=== PATIENT | female | born 1950 | race African-American/Black ===

== ENCOUNTER → 2022-12-18 | Outpatient (CLI) | payer MEDICARE, MEDICAID, SELFPAY ==
--- NOTE | 2022-12-18 15:14 | NEURO ---
NCS and/or EMG Patient Report Ordering Doctor: Petey Lujan DATE OF SERVICE: 12/18/22 Findings: Nerve conduction studies were performed in the left upper extremity with some comparisons on the right. The left median motor study recording the abductor pollicis brevis showed a normal amplitude, normal distal latency and borderline conduction velocity. The left ulnar motor study recording the abductor digiti minimi showed a borderline amplitude, normal distal latency and borderline conduction velocity. No conduction block or focal slowing was present across the elbow. The left median sensory response recording digit two was absent. The left ulnar sensory response recording digit five was absent. The left radial sensory response recording over the extensor snuff box was absent. The right radial sensory response recording over the extensor snuff box showed a normal amplitude, latency and conduction velocity. The radial responses were markedly asymmetric. Needle EMG of the left upper extremity muscles was performed. Active denervation was seen in the distal muscles of the left upper extremity. Motor units in the abductor pollicis brevis and first dorsal interosseous were large amplitude and long duration with reduced recruitment. All other motor unit morphology, activation and recruitment patterns were normal. Impression: This is an abnormal study. 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 Clinical correlation is recommended. Bernardo Love D.O. Multi Select Codes Neurology Neurology Interp Codes: 72457-48 Musc test done w/n test comp (interp) and 81277-59 Nr cndj tst 5-6 studies (interp)
== END | disposition home or self-care (01) ==
LOC: PSN 13:59
PROVIDERS: PCP Internal Medicine Nephrology; Referring Provider Surgery; Visit Provider Surgery
DX: G56.02 Carpal tunnel syndrome, left upper limb (principal)
CPT/HCPCS: 95886; 95909

== ENCOUNTER 2023-02-07 07:41 | Outpatient (CLI) | payer MEDICARE, MEDICAID, SELFPAY ==
[2023-02-06 09:07] VITALS: BMI 29.8
--- NOTE | 2023-02-07 07:44 | VDUE_ITS ---
Reason For Study: Pre op by BPG Right Lower Arm Left Arm Proximal Radial artery diameter 1.3 x 1.3 Lt Brachial A at AC - 0.34 x 0.32cm mm. Lt Brachial V at AC - 0.40 x 0.37cm Proximal Radial artery waveform is Lt Brachial A at Bicep - 0.35 x 0.37cm triphasic . Lt Brachial V at Bicep - 0.29 x 0.39cm Proximal Lateral Radial vein diameter 0.6 x Lt Brachial A prox - 0.39 x 0.38cm 0.8 mm. Lt Brachial V prox - 0.33 x 0.34cm Proximal Medial Radial vein diameter 1.0 x Used larger of 2 vein duplicators for 1.1 mm. measurements. Distal Radial artery diameter 1.2 x 1.2 mm. Lt Brachial A - 68.2/0.0cm/s. Distal Lateral Radial vein diameter 0.5 x Unable to visualize Lt Cephalic Vein. 0.7 mm. Distal Medial Radial vein diameter 0.6 x 0.6 Loop Graft mm. Lt Inflow - 68.3/17.9 cm/sec Proximal Ulnar artery diameter 3.3 x 3.4 mm. Lt Inflow - 68.2 ml/min Proximal Ulnar artery waveform is Prox Anastomosis - 240.1/135.1 cm/s triphasic . Prox Anastomosis - 1940.0 ml/min Right Arm Prox Graft - 80.6/46.8 cm/s Right Brachial artery diameter 4.0 x 3.6 mm. Prox Graft - 610.5 ml/min Right Brachial artery waveform is Mid Graft - 100.7/49.6 cm/s triphasic . Mid Graft - 725.2 ml/min Lateral Brachial vein diameter 1.3 x 1.7 mm. Dist Graft - 197.3/111.8 cm/s Medial Brachial vein diameter 2.2 x 2.4 mm. Dist Graft - 1212.0 ml/min Ambulance Officer Vein is present. Dist Anastomosis - 332.8/72.7 cm/s Ambulance Officer Vein measures 2.3 mm. Dist Anastomosis - 1388 ml/min Cephalic Vein at proximal upper arm measures Loop Graft 1.7 x 1.5 mm. Outflow appears to be patent Basilic V. Cephalic vein at proximal upper arm depth Left Lower Arm measures 17 mm. Proximal Radial artery diameter 1.3 x 1.5 mm. Cephalic Vein at mid upper arm measures 1.6 Lt Radial A - 79.1/0.0cm/s. x 1.3 mm. Proximal Lateral Radial vein diameter 1.5 x Cephalic vein at mid upper arm depth 1.4cm and 1.3 x 1.9cm mm. measures 11 mm. Proximal Ulnar artery diameter 0.10 x 0.11 Cephalic Vein distal upper arm measures 1.4 mm. x 1.4 mm. Lt Ulnar A - 57.6/14.6cm/s. Cephalic vein at distal upper arm depth Proximal Lateral Ulnar vein diameter 1.2 x measures 6.8 mm. 1.1cm and 1.0 x 1.1cm mm. Cephalic Vein proximal forearm measures 0.9 x 0.8 mm. Cephalic Vein at mid forearm measures 1.1 x 1.3 mm. Cephalic Vein at distal forearm measures 0.8 x 0.9 mm. Proximal Basilic vein measures 7.2 x 6.7 mm. Proximal Basilic vein depth measures 23 mm. Mid Basilic vein measures 3.9 x 3.6 mm. Mid Basilic vein depth measures 21 mm. Distal Basilic vein measures 2.6 x 2.8 mm. Distal Basilic vein depth measures 13 mm. VL/Saphenous Vein Mapping, Bilat Interpretation Summary Patent left upper arm AV graft with elevated velocities and turbulent flow at d istal anastomosis Bilateral arterial inflow patent with normal waveforms and no evidence of steno sis Bilateral venous outflow patent. Vein measurements above Ordering Physician: Papito Martinez Referring Physician: Chris Ford Performed By: Jak Giraldo, T ???
--- NOTE | 2023-02-07 07:44 | ART_ITS ---
Reason For Study: Problem w/ dialysis access Procedure A unilateral upper extremity continuous wave Doppler with analog waveform analysis.. Lt Digit waveforms captured with PPG with and without compressions at fistula site. VL/AV Fistula/Dialysis Graft Scan Interpretation Summary Left upper extremity digit waveforms mildly diminished at baseline with no impr ovement with fistula compression. Ordering Physician: Papito Martinez Referring Physician: Chris Ford Performed By: Jak Giraldo RVT
[2023-02-07 08:18] LABS: Absolute Neutrophil Count 5.1 X10^3/uL (2.0-7.7); Basophil# 0.06 X10^3/uL; Basophil% 0.8 % (0-1); Eosinophil# 0.11 X10^3/uL; Eosinophils% 1.4 % (0-5); Hematocrit 36.2 % (37-47); Hemoglobin 11.6 g/dL (12.0-15.0); Lymphocyte % 22.2 % (19-41); Mean Corpuscular Hgb 31.1 pg (27.0-32.0); Mean Corpuscular Volume 97.1 fL (81-99); Mean Platelet Vol. 11.1 fl (6.2-12.0); Monocyte# 0.64 X10^3/uL; Monocyte% 8.4 % (0-10); NRBC Flagged by Analyzer 0 % (0-5); Neutrophil # 5.11 X10^3/uL (2.7-7.7); Neutrophil % 66.8 % (47-70); Platelet Count 175 K/mm3 (150-450); RBC Distribution Width CV 15.7 % (11.6-14.6); RBC Distribution Width SD 55.5 fl (35.1-43.9); Red Blood Count 3.73 M/mm3 (4.2-5.4); White Blood Count 7.7 K/mm3 (4.4-11.0)
[2023-02-07 08:37] LABS: Anion Gap 8 (5-15); BUN 51 mg/dL (7-18); BUN/Creat Ratio 6.8 RATIO (10-20); Calcium,Total 9.1 mg/dL (8.5-10.1); Chloride 110 mmol/L (98-107); Creatinine, Serum 7.54 mg/dL (0.55-1.02); EST Glomerular Filtration Rate 6 mL/min (>60); Est Glom Filt Rate - Afr Amer 7 mL/min (>60); Estimated Creatinine Clearance 6.41 ml/min; Glucose 163 mg/dL (74-106); Potassium 4.6 mmol/L (3.5-5.1); Sodium Level 141 mmol/L (136-145)
--- NOTE | 2023-02-07 13:08 | PCM.OPRPT ---
Report of Operation Date of Procedure: 02/07/23 Pre-Operative Diagnosis: left arm arterial steal Post-Operative Diagnosis: same Surgery/Procedure Performed:: thoracic aortogram left upper extremity selective angiogram Surgeon: Papito Martinez Type of Anesthesia: Local and Sedation,Conscious Estimated Blood Loss (mL): 3 Description of Procedure: HPI: Patient is a 72-year female with a previous left upper extremity AV graft who has had worsening left hand paresthesias since the graft was placed. She presents for angiogram to assess and treat arterial inflow compromise as a cause for her ischemia prior to any potential fistula revisions. Description of procedure: Upon obtaining informed consent and verification correct patient procedure site patient taken to the [facility] where she was positioned prepped and draped in usual fashion. Time was performed conscious sedation ministered with Versed and fentanyl. Skin overlying the right common femoral artery is anesthetized 1% lidocaine and the vessel accessed under ultrasound guidance with micropuncture needle wire. This was exchanged for micropuncture sheath through which hand-injection iliofemoral angiogram was performed revealing satisfactory position with no extravasation or dissection. Through the micropuncture sheath a J-wire was advanced and the micropuncture sheath exchanged out for short 6 Icelandic sheath. Through the 6 Icelandic sheath a pigtail catheter was advanced into the ascending aorta and an arch aortogram performed. This revealed the origin of the vessels of the arch and demonstrated a type III arch. The patient was then heparinized and allowed to circulate for 3 minutes after which a H1 catheter was advanced over the wire and the J-wire exchanged for a glide advantage wire. We were able to initially cannulate the left subclavian artery but were unable to obtain sufficient enough purchase to advance her catheter. We then exchanged the H1 catheter for a MP2 catheter which was again used to cannulate the left subclavian and advanced our glide advantage wire. Given the angulation of the arch and acute angle of the apex of the subclavian were unable to advance beyond the a sending portion of the subclavian artery however we felt it from this position adequate imaging to be obtained. Next hand-injection subtraction angiography of the left upper extremity was performed with and without compression of the fistula. After adequate imaging was obtained the catheter was withdrawn and a minx closure device deployed in the femoral access followed by 2 minutes of manual pressure with satisfactory stasis resulting. Radiograph interpretation: Ascending and arch aorta normal in caliber with no significant atherosclerosis or stenosis. Type III arch with ostia of innominate and left carotid from common origin and no significant stenosis. Left subclavian origin and remainder vessel widely patent with no significant atherosclerosis or stenosis. Left axillary and proximal brachial arteries patent with no significant atherosclerosis or stenosis. Left distal brachial artery with anastomosis of prior AV graft patent with no stenosis or atherosclerosis. Large caliber anastomosis with brisk contrast transit into the graft with minimal contrast visualized beyond the anastomosis in the arterial outflow to the hand. With graft compression there was improved visualization of the distal brachial artery as well as the radial ulnar arteries.
== END 2023-02-07 16:00 | disposition home or self-care (01) ==
PROVIDERS: PCP Internal Medicine Nephrology; Referring Provider Surgery Trauma Surgery; Visit Provider Surgery Trauma Surgery
DX: T82.898A Other specified complication of vascular prosthetic devices, implants and grafts, initial encounter (principal); T82.848A Pain due to vascular prosthetic devices, implants and grafts, initial encounter; Z99.2 Dependence on renal dialysis; E11.22 Type 2 diabetes mellitus with diabetic chronic kidney disease; N18.6 End stage renal disease; I12.0 Hypertensive chronic kidney disease with stage 5 chronic kidney disease or end stage renal disease; Z79.4 Long term (current) use of insulin; Z79.82 Long term (current) use of aspirin; Z79.899 Other long term (current) drug therapy; Z79.85 Long-term (current) use of injectable non-insulin antidiabetic drugs
CPT/HCPCS: 36200; 36415; 75605; 75710; 76937; 80048; 85025; 86850; 86900; 86901; 93970; 93990; 99152; 99153; C1769; J7040; Q9967

== ENCOUNTER → 2023-02-21 | Outpatient (CLI) | payer MEDICARE, MEDICAID, SELFPAY ==
--- NOTE | 2023-02-21 13:51 | VDLE_ITS ---
Reason For Study: Pre-Op vein mapping RIGHT LEFT GSV prox thigh - 0.12 x 0.12cm GSV prox thigh - 0.20 x 0.20cm GSV mid thigh - 0.12 x 0.13cm GSV mid thigh - 0.27 x 0.25cm GSV dist thigh - 0.20 x 0.21cm GSV dist thigh - 0.28 x 0.27cm GSV Knee - 0.09 x 0.12cm GSV Knee - 0.20 x 0.19cm GSV prox calf - 0.16 x 0.15cm GSV prox calf - 0.13 x 0.11cm GSV mid calf - 0.10 x 0.13cm GSV mid calf - 0.10 x 0.13cm GSV dist calf - 0.11 x 0.13cm GSV dist calf - 0.10 x 0.10cm ASV prox thigh - 0.28 x 0.27cm SSV prox calf - 0.09 x 0.09cm ASV mid thigh - 0.23 x 0.25cm SSV mid calf - 0.12 x 0.13cm ASV dist thigh - 0.20 x 0.24cm SSV dist calf - 0.09 x 0.08cm ASV Knee - 0.18 x 0.23cm ASV prox calf - 0.22 x 0.24cm GSV and SSV are compressible. ASV mid calf - 0.17 x 0.17cm ASV dist calf - 0.17 x 0.18cm SSV prox calf - 0.13 x 0.14cm SSV mid calf - 0.12 x 0.12cm SSV dist calf - 0.13 x 0.15cm GSV, SSV and ASV all compressible. Procedure This is a venous duplex using B-mode, color flow and spectral Doppler. Exam performed in department. The exam was diagnostic. VL/Saphenous Vein Mapping, Bilat Interpretation Summary Right great saphenous vein, small saphenous vein and accessory saphenous vein p atent with measurements above. Left great saphenous vein, small saphenous vein patent with measurements above. Ordering Physician: Papito Martinez Referring Physician: Papito Martinez Performed By: Jak Giraldo RVT
== END | disposition home or self-care (01) ==
LOC: CVS 13:46
PROVIDERS: PCP Internal Medicine Nephrology; Referring Provider Surgery Trauma Surgery; Visit Provider Surgery Trauma Surgery
DX: Z01.818 Encounter for other preprocedural examination (principal)
CPT/HCPCS: 93970

== ENCOUNTER 2023-03-26 09:14 | Inpatient (IN) | payer MEDICARE, MEDICAID, SELFPAY ==
[2023-03-26] VITALS (15 sets, daily range): BP systolic 112–233; BP diastolic 44–77; PULSE 43–67; RESP 10–18; TEMP 35.4–36.6; O2SAT 94–100; BMI 29.7; BMI 29.0
[2023-03-26 10:43] LABS: Bedside Glucose 140 mg/dL (74-106)
[2023-03-26] MEDS: 0.9% Normal Saline (500mL Bag) 500 ML 15 ML IV (10:44)
--- NOTE | 2023-03-26 13:36 | HP.PCM_ITS ---
[facility] - General General Date of Admission: 03/26/23 [facility] Narrative ALISON HILLIARD, is a 72 F who presents with left hand pain/paresthesias after upper arm AV graft. left upper extremity arteriogram revealed satisfactory inflow vessels with no stenosis; minimal contrast transits beyond graft anastomosis which is generous in size. There is also a venous anastomosis stenosis. She presents for revascularization with distal inflow, angioplasty/stent of venous outflow [facility] Medical History (Updated 03/19/23 @ 13:50 by Katie Cam) Alcohol use Anemia Arthritis Chronic renal failure Diabetes Gout History of echocardiogram History of renal dialysis History of stress test Hypertension Insulin dependent diabetes mellitus Non-smoker Post-menopausal Problem with dialysis access Shortness of breath on exertion Steal syndrome dialysis vascular access Wears glasses Home Medications allopurinol 100 mg tablet 150 mg PO DAILY GOUT 10/25/22 [History Last Taken 03/25/23] amlodipine 10 mg tablet 10 mg PO QHS BP 10/25/22 [History Last Taken 03/25/23] aspirin 81 mg tablet,delayed release 81 mg PO DAILY HEART HEALTH 10/25/22 [History Last Taken 03/25/23] atorvastatin 40 mg tablet 40 mg PO SUTH CHOLESTEROL 10/25/22 [History Last Taken 03/25/23] carvedilol 25 mg tablet 25 mg PO BID HEART 10/25/22 [History Last Taken 03/26/23] clonidine HCl 0.2 mg tablet 0.2 mg PO BID BP 10/25/22 [History Last Taken 03/26/23] dulaglutide 1.5 mg/0.5 mL subcutaneous pen injector (Trulicity) 1.5 mg subcut QWEEK DEPRESSION 10/25/22 [History Last Taken Unknown] ergocalciferol (vitamin D2) 1,250 mcg (50,000 unit) capsule (Vitamin D2) 1,250 mcg PO QMONTH SUPPLEMENT 10/25/22 [History Last Taken 03/25/23] furosemide 80 mg tablet 80 mg PO DAILY WATER PILL 10/25/22 [History Last Taken 03/25/23] insulin degludec 200 unit/mL (3 mL) subcutaneous pen (Tresiba FlexTouch U-200 insulin) 10 unit subcut QHS DIABETES 10/25/22 [History Last Taken 03/25/23] multivit,Ca,zcz-atzh-OO-guarana-caff 9 mg iron-400 mcg-200 mg tablet (One-A-[employer]) 1 tab PO DAILY SUPPLEMENT 10/25/22 [History Last Taken 03/25/23] clonidine HCl 0.2 mg tablet 0.5 mg PO DAILY PRN hypertensive emergency 01/10/23 [History Last Taken Unknown] sacubitril 49 mg-valsartan 51 mg tablet (Entresto) 1 tab PO BID BP 03/19/23 [History Last Taken 03/26/23] Allergy/AdvReac Type Severity Reaction Status Date / Time No Known Allergies Allergy Verified 03/26/23 10:16 Family History (Updated 01/10/23 @ 14:03 by Rita Rider) Aunt CVA (cerebral vascular accident) Sister Asthma Daughter Thyroid disorder CVA (cerebral vascular accident) Daughter Diabetes Hypertension Kidney disease High cholesterol Surgical History (Updated 03/19/23 @ 13:50 by Katie Cam) History of arteriovenostomy for renal dialysis History of hysterectomy History of infusaport central venous catheter insertion History of partial nephrectomy Hx of excision of mass Social History Smoking Status: Never smoker alcohol intake: current alcohol intake frequency: a few times a month substance use type: does not use ROS Constitutional Constitutional: Denies chills, fever(s), frequent falls, lethargy or weakness Eyes Eyes: Denies blind spots, change in vision or loss of vision ENT HEENT: Denies bleeding gums, hoarseness or sore throat Cardiovascular Cardiovascular: Denies abdominal pain, bluish discoloration of hand/feet, chest pain with activity, claudication, cold extremities, cyanosis, dyspnea on exertion, erythema on extremities, irregular heart rhythm, leg edema, leg ulcers, numbness in extremities or weakness in extremities Respiratory/Chest Respiratory/Chest: Denies cough, excessive phlegm production, shortness of breath at rest, shortness of breath with exertion or wheezing Gastrointestinal Gastrointestinal: Denies anorexia, change in stool character, constipation, diarrhea, melena or rectal bleeding Genitourinary Genitourinary: Denies dysuria or hematuria Musculoskeletal Musculoskeletal: Denies abnormal gait Integumentary Integumentary: Reports other Details: ; Denies erythema, non-healing lesions or wounds Neurologic Neurologic: Denies abnormal speech, focal weakness, headache(s), loss of vision, numbness, paresthesias or sensory deficit Hematologic/Lymphatic Hematologic/Lymphatic: Denies easy bleeding, easy bruising or lymphadenopathy Vital Signs Vital Signs Vital Signs: 03/26/23 10:17 03/26/23 10:17 Temperature 97.2 F L Temperature Source Temporal Pulse Rate 67 Respiratory Rate 17 Respiratory Pattern Normal Blood Pressure 178/67 H Blood Pressure Mean 104 Blood Pressure Source Monitor Blood Pressure Position Semi-Fowlers Blood Pressure Location Right Arm Pulse Ox 99 Oxygen Delivery Method Room Air Weight Weight: 183 lb 13.848 oz Body Mass Index (BMI) 29.7 Physical Exam Const alert, oriented x3, no apparent distress and healthy appearing General Appearance: cooperative; Negative for combative or lethargic Orientation / Consciousness: awake Exam Limitations: no limitations HEENT Head and Scalp: normocephalic and atraumatic Eyes EOMs intact bilaterally General Eye: normal appearance of both eyes Neck full ROM, no lymphadenopathy, thyroid normal and No no carotid bruits General: trachea midline; Negative for lymphadenopathy or tenderness Thyroid: thyroid normal Lymph Lymphatic: Negative for no lymphadenopathy noted Resp normal respiratory effort, no use of accessory muscles and clear to auscultation bilaterally Effort and Inspection: Negative for labored, stridor or audible wheezes Cardio regular rate, regular rhythm and no murmurs Peripheral Pulses: brachial pulses present, radial pulses present, femoral pulses present, popliteal pulses present, posterior tibial pulses present and dorsalis pedis pulses present GI non-tender and non-distended; Negative for hepatosplenomegaly Back/Spine Cervical Spine: cervical ROM normal Extremity full ROM, normal capillary refill and no clubbing, cyanosis or edema Skin no rashes or lesions noted and no wounds Neuro oriented x3, CN's II-XII intact bilaterally, no focal motor deficits and no sensory deficits noted Psych thought process normal, cooperative, affect normal, speech normal and activity/motor behavior normal Results Lab / Micro Data Labs: Laboratory Results - last 24 hr 03/26/23 10:23: POC Glucose 140 H 03/26/23 10:37: Blood Type A POSITIVE, Antibody Screen NEGATIVE Assessment & Plan Assessment/Plan (1) Steal syndrome dialysis vascular access: QUALIFIERS: Encounter type: initial encounter Qualified Code(s): T82.898A - Other specified complication of vascular prosthetic devices, implants and grafts, initial encounter PLAN: -revascularization with distal inflow -angioplasty/stent venous outflow
[2023-03-26] MEDS: Cefazolin 2 GM in 0.9% Normal Saline (100mL Bag) 100 ML IV (13:52)
--- NOTE | 2023-03-26 14:32 | RAD_ITS ---
PROCEDURE: ANGIOGRAM - fistulogram REASON FOR EXAM: Female, 72 years old. FISTULOGRAM FLUOROSCOPY TIME (if supplied): (5 minutes and 48 seconds) minutes/seconds. 21.63 mGy STERILE BARRIER TECHNIQUE: The following sterile barrier precautions were used during the procedure: hand hygiene; use of 2% chlorhexidine aseptic; use of a cap, mask, sterile gown, sterile gloves, sterile full body drape, and a large sterile sheet. TECHNIQUE: (All elements of maximal sterile barrier technique followed, including US elements as applicable) Intraoperative fluoroscopic services provided for angioplasty and stent placement of the fistula. RAD/Fluoroscopy 1 Hr or Less IMPRESSION: Satisfactory angioplasty and stent placement of the stenosis at the level of the fistula. Electronically Signed: Jimmie Wiley MD at 8:15 EST ,
[2023-03-26] MEDS: Bupivacaine 0.25% 30 ML Vial (14:50)
[2023-03-26] MEDS: Heparin Injection (Vial) 5,000 UNIT/ML VIAL 5000 UNIT ×2 (17:15→18:23)
--- NOTE | 2023-03-26 18:34 | OP.PCM_ITS ---
Report of Operation Date of Procedure: 03/26/23 Pre-Operative Diagnosis: left upper extremity arteriovenous steal, stenosis of venous anastomosis of prior AV graft Post-Operative Diagnosis: same Surgery/Procedure Performed:: revascularization using distal inflow, angioplasty/stent venous anastomosis, IVUS Surgeon: Papito Martinez Estimated Blood Loss (mL): 50 Description of Procedure: HPI: Patient is a 72-year-old female with a previously placed left upper arm AV graft with symptoms consistent with steal. She had previous angiogram which revealed adequate arterial inflow but selective contrast emptying into the graft rather than towards the hand. She also was noted to have a anastomosis at the venous end with significant stenosis. She is taken now for revascularization using distal inflow from the radial artery as well as angioplasty and stent to the venous outflow. Description of procedure: Upon obtaining form consent and verification correct patient procedure site the patient was taken to the operating room she was placed under general anesthesia. She was then positioned prepped and draped in usual fashion and timeout was performed. Ultrasound was used to alexx the left great saphenous vein which was adequate in size. Skip incisions were then created and Bovie used to dissect down through subcutaneous tissue to the vein was visualized. Sharp dissection then used to dissect free the saphenous vein with sidebranches ligated with silk ties and divided. Once an adequate length of vein was exposed we then turned our attention to the upper extremity. Transverse incision was made 2 fingerbreadths distal to the antecubital crease and Bovie electrocautery was used to dissect down through subcutaneous tissue to the level of the fascia. Self-retaining retractors then put in position and the fascia was incised exposing the neurovascular bundle. Sharp dissection used to dissect free the distal brachial artery and its bifurcation into the radial ulnar arteries. Next a longitudinal incision made over the graft in the distal aspect of the upper arm and both electrocautery to dissect down through subcutaneous tissue. Self-retaining retractors put in position further dissection carried down to the graft was dissected free proximal distal and a right angle used to place a vessel loop. We then used a Deforest tunneler to tunnel from the graft to the forearm incision and the patient was then heparinized. At this point micropuncture needle wire was used to access the graft in antegrade fashion which is a minor exchanged out for micropuncture sheath. Through this hand-injection fistulogram was performed which confirmed the location of the anastomosis and stenosis. Bentson wire was advanced and the micropuncture sheath exchanged out for a short 7 Swedish sheath. Through this a glide catheter was advanced in the Bentson wire exchanged for an 014 wire. An 014 intravascular ultrasound probe was then advanced in the position and recorded pullback of the brachial vein and the graft anastomosis was performed confirming vessel size and extent of stenosis. The lesion was predilated with first a 6 mm conquest balloon followed by 7 mm conquest balloon each taken to nominal. There is satisfactory response from the lesion so a 7 - 11 x 60 Bard Covera stent was advanced in position and deployed. This was then postdilated with a 7 mm balloon with repeat angiography revealing satisfactory resolution of the stenosis with brisk contrast transit. The sheath was then withdrawn and the graft clamped. At this point the saphenous vein harvest was completed with the distal vessel ligated with silk ties and the saphenofemoral junction and oversewn with Prolene. The vein was then flushed heparinized saline and all sidebranches were adequately ligated. This was then oriented in reverse fashion and the radial artery occluded with Vesseloops. Longitudinal arteriotomy was created with 11 blade extended Fermin scissors. The vein was then anastomosed with 6-0 Prolene running fashion after which the vessels were flushed through the graft and confederated salish flow return to the hand. The vein was then marked to maintain orientation and secured with a tunneler and pulled through to the upper arm incision. The graft puncture site was then extended with Fermin scissors and the vein cut the length and beveled to match the arteriotomy. Anastomosis was then performed with a 6-0 Prolene in a running fashion. Prior to completing suture line vessels and graft were back flushed and after completing suture line clamps were removed. Satisfactory stasis was noted and there was a low resistant Doppler signal in the vein as well as the synthetic graft. There is also now palpable radial pulse in the wrist which was not present preoperatively. After removing the clamp on the proximal portion of the graft it was then ligated with an 0 silk tie. Wounds were then inspected for hemostasis and closed with 3-0 Vicryl, 4-0 Monocryl, Dermabond. Patient was then awake from anesthetic taken recovery room with anticipated admission to the progressive care unit. Grafts/Implants Used: Bard Covera 7-11 x 60
[2023-03-26 19:36] LABS: Bedside Glucose 119 mg/dL (74-106)
[2023-03-26] MEDS: oxyCODONE 5 MG Tablet PO (22:26)
[2023-03-26] MEDS: cloNIDine HCl 0.2 MG Tablet PO (22:58)
[2023-03-26] MEDS: Carvedilol 25 MG Tablet PO (22:59)
[2023-03-26] MEDS: Heparin Injection (Vial) 5,000 UNIT/ML VIAL 5000 UNIT SC (23:00)
[2023-03-26] MEDS: SACUBITRIL/VALSARTAN 49-51 MG TABLET 1 EACH PO (23:01)
[2023-03-26] MEDS: amLODIPine 10 MG Tablet PO (23:02)
[2023-03-26] MEDS: Acetaminophen 500 MG Tablet 1000 MG PO (23:02)
[2023-03-26 23:37] LABS: Bedside Glucose 239 mg/dL (74-106)
[2023-03-27] VITALS (19 sets, daily range): BP systolic 91–139; BP diastolic 33–93; PULSE 38–57; RESP 10–19; TEMP 35.5–36.8; O2SAT 91–100
[2023-03-27] MEDS: HYDROmorphone 0.5 MG/0.5 ML SYRINGE 0.2 MG IV ×2 (00:18→04:44)
[2023-03-27] MEDS: 0.9% Saline Lock 10 ML Syringe IV ×2 (00:23→04:45)
[2023-03-27] MEDS: Acetaminophen 500 MG Tablet 1000 MG PO ×2 (06:55→13:28)
[2023-03-27 07:00] LABS: Absolute Lymphocyte Count 1.81 X10^3/uL (0.83-4.51); Absolute Neutrophil Count 4.7 X10^3/uL (2.0-7.7); Basophil# 0.05 X10^3/uL; Basophil% 0.7 % (0-1); Eosinophil# 0.04 X10^3/uL; Eosinophils% 0.5 % (0-5); Hematocrit 32.7 % (37-47); Hemoglobin 9.3 g/dL (12.0-15.0); Lymphocyte # 1.81 X10^3/ul (0.83-4.51); Lymphocyte % 23.9 % (19-41); Mean Corp Hgb Conc 28.4 g/dL (32-36); Mean Corpuscular Hgb 30.6 pg (27.0-32.0); Mean Corpuscular Volume 107.6 fL (81-99); Mean Platelet Vol. 11.1 fl (6.2-12.0); Monocyte# 0.89 X10^3/uL; Monocyte% 11.8 % (0-10); NRBC Flagged by Analyzer 0.3 % (0-5); Neutrophil # 4.74 X10^3/uL (2.7-7.7); Neutrophil % 62.6 % (47-70); POSITIVE MORPHOLOGY YES; Platelet Count 244 K/mm3 (150-450); RBC Distribution Width CV 17.6 % (11.6-14.6); RBC Distribution Width SD 67.6 fl (35.1-43.9); Red Blood Count 3.04 M/mm3 (4.2-5.4); White Blood Count 7.6 K/mm3 (4.4-11.0)
[2023-03-27 07:12] LABS: Differential Indicated SCAN CRITERIA MET
[2023-03-27 07:17] LABS: Anisocytosis 1+; Differential Comment SCANNED; Macrocytosis 1+
[2023-03-27 07:35] LABS: Bedside Glucose 155 mg/dL (74-106)
[2023-03-27 07:36] LABS: Anion Gap 9 (5-15); BUN 45 mg/dL (7-18); BUN/Creat Ratio 6.5 RATIO (10-20); Calcium,Total 8.4 mg/dL (8.5-10.1); Chloride 107 mmol/L (98-107); Creatinine, Serum 6.91 mg/dL (0.55-1.02); EST Glomerular Filtration Rate 6 mL/min (>60); Est Glom Filt Rate - Afr Amer 8 mL/min (>60); Estimated Creatinine Clearance 6.99 ml/min; Glucose 170 mg/dL (74-106); Potassium 5.6 mmol/L (3.5-5.1); Sodium Level 137 mmol/L (136-145)
[2023-03-27] MEDS: Aspirin E.C. 81 MG Tablet PO (07:54)
[2023-03-27] MEDS: Allopurinol 300 MG Tablet 150 MG PO (07:54)
[2023-03-27] MEDS: oxyCODONE 5 MG Tablet PO (11:06)
[2023-03-27] MEDS: BENZOCAINE/MENTHOL 1 LOZENGE MUCOUS MEM (11:16)
[2023-03-27 12:01] LABS: Bedside Glucose 138 mg/dL (74-106)
[2023-03-27] MEDS: Furosemide 80 MG Tablet PO (12:09)
[2023-03-27] MEDS: cloNIDine HCl 0.2 MG Tablet PO (12:09)
[2023-03-27] MEDS: Heparin Injection (Vial) 5,000 UNIT/ML VIAL 5000 UNIT SC (12:10)
--- NOTE | 2023-03-27 15:10 | CASEMGMT ---
RN?CM?CALCULATING MACHINE MECHANIC?CM?to room to meet with patient for initial transition planning/care coordination?assessment.?RN?CM?introduced self and role at [facility].? Pt voices understanding and consents to?assessment?at this time.? Pt sitting up in chair in room in no distress at this time.? Pt is A/O at this time and answers all questions appropriately.?? Care providers, pharmacy, and demographics verified/updated at this time. PCP: Dr Gretchen Rose in [place] Specialists: Dr Chris Ford-special projects manager, Dr Martinez-vascular surgeon Dialysis: Pt goes to [facility] in [place] on [address] on Mon and Wed for OP HD. Chair time is @ 0720. Preferred Pharmacy: [facility] @ discharge Insurance: [facility] Dual Prescription Benefit:?Yes Living Will/HPOA:?Pt does not currently have LW/HCPOA and declines info at this time.? Pt made aware that she can contact as an out-pt and make appt in the future if she decides she would like to talk with someone about this or would like to utilize [facility] social work for advanced directive completion.? LNOK: 2 daughters: Leon and Radha Living Arrangements: Lives alone in one-story home w/basement and 1 step to enter through the front door. Pt states, though, that she usually goes up a flight of steps from the basement to get into the home, but for now will most likely use the front door until she recovers. She states she is independent w/ADL's, IADL's, and manages her own medications. Transportation:?Pt states drives self and states no transportation concerns at this time.?Her daughter will take her home @ discharge. DME: ?States has the following DME:?functioning glucometer w/supplies ?Pt states no need for further DME at this time.? HHC/SNF: No hx of either. Pt denies need for HHC and no needs identified. Pt wishes to return home and states has no concerns with going home at time of discharge.? CM?to follow for any discharge planning/needs.? Pt voices no concerns/needs at this time.? Advised pt to ask for?CM?if any questions/concerns/needs arise.? Voices understanding. PLAN:??Home Eliseo VELEZN?RN?CM
--- NOTE | 2023-03-27 15:27 | PCM.DC.SUM ---
Providers Date of Admission: 03/26/23 Primary Care Physician: Dr. Chris Ford MD Reason For Visit: left upper extremity revascularization using dista Diagnosis Discharge Diagnosis (1) Steal syndrome dialysis vascular access: Status: Chronic Code(s): T82.898A - Other specified complication of vascular prosthetic devices, implants and grafts, initial encounter Qualifiers: Encounter type: initial encounter Qualified Code(s): T82.898A - Other specified complication of vascular prosthetic devices, implants and grafts, initial encounter Medications at Discharge Home Medications allopurinol 100 mg tablet 150 mg PO DAILY GOUT 10/25/22 amlodipine 10 mg tablet 10 mg PO QHS BP 10/25/22 aspirin 81 mg tablet,delayed release 81 mg PO DAILY HEART HEALTH 10/25/22 atorvastatin 40 mg tablet 40 mg PO SUTH CHOLESTEROL 10/25/22 carvedilol 25 mg tablet 25 mg PO BID HEART 10/25/22 clonidine HCl 0.2 mg tablet 0.2 mg PO BID BP 10/25/22 dulaglutide 1.5 mg/0.5 mL subcutaneous pen injector (Trulicity) 1.5 mg subcut QWEEK DEPRESSION 10/25/22 ergocalciferol (vitamin D2) 1,250 mcg (50,000 unit) capsule (Vitamin D2) 1,250 mcg PO QMONTH SUPPLEMENT 10/25/22 furosemide 80 mg tablet 80 mg PO DAILY WATER PILL 10/25/22 insulin degludec 200 unit/mL (3 mL) subcutaneous pen (Tresiba FlexTouch U-200 insulin) 10 unit subcut QHS DIABETES 10/25/22 multivit,Ca,dzt-lrhi-XI-guarana-caff 9 mg iron-400 mcg-200 mg tablet (One-A-Day Energy) 1 tab PO DAILY SUPPLEMENT 10/25/22 clonidine HCl 0.2 mg tablet 0.5 mg PO DAILY PRN hypertensive emergency 01/10/23 sacubitril 49 mg-valsartan 51 mg tablet (Entresto) 1 tab PO BID BP 03/19/23 oxycodone 5 mg tablet 5 mg PO Q8H PRN PRN Pain Score 4-10 3 days #9 tabs 03/27/23 Hospital Course Summary of Care Provided Hospital Course: Patient underwent revascularization using distal inflow, angioplasty/stent venous anastomosis of left fracture of any AV graft. This procedure was performed due to steal syndrome with associated ischemic amyotrophy of the LUE. Patient was routinely admitted the following this procedure for continued monitoring. She has remained hemodynamically stable although her blood pressures are lower than her usual baseline. She reports feeling well overall, was drowsy this morning but feels back to her baseline this afternoon. She did okay with ambulating and getting up to the chair with no dizziness or syncope/presyncope. She does think that her hand already feels some better since surgery yesterday, she feels like its not cramping as much. Following surgery, she does have some antecubital bruising and moderate associated swelling, but this area is stable in size and soft to palpation and should resolve with time. She has incision sites along the left medial thigh where vein was harvested. These incision sites were closed with skin glue and are currently covered with silver postoperative dressings. These postoperative dressings will be left in place for 1 week after which time they can be removed and the incisions will no longer need to remain covered. She also has 2 small incisions and the left upper arm which are covered by surgical glue, these do not otherwise need to be covered. Following surgery, patient does have a bruit in the left upper extremity AV graft. No risk of surgery was improvement to the hand symptoms but failure of the graft so will need to continue to monitor for this. She is scheduled for outpatient dialysis on Saturday, and they may proceed with dialysis as usual using their typical locations to access the graft. Given her lower blood pressures following surgery yesterday, we will continue her home clonidine but hold her other antihypertensive medications. She understands that she is to check her blood pressure is 1-2 times daily at home. When her systolic blood pressure is greater than 140 she may restart her other blood pressure medications. Se understands to call the office with any questions or concerns regarding her blood pressure with these medications. She is discharged in medically stable condition. She will follow-up in the office in 2 to 4 weeks for follow-up or sooner as needed. Physical Exam Const oriented x3 and no apparent distress Resp normal respiratory effort, no retractions and no use of accessory muscles Effort and Inspection: able to speak in complete sentences; Negative for respiratory distress, labored, stridor or audible wheezes Cardio regular rhythm Rate: bradycardia Extremity Extremity Narrative: She has surgical incisions along the medial aspect of her left thigh, these are currently covered by silver postoperative dressings. There is no significant erythema, warmth, drainage noted. There is expected tenderness in this area. The remainder of the LLE and her RLE are without any significant swelling. L upper extremity AV graft with +bruit. 2 small incision sites are covered by surgical glue, no focal swelling, redness, warmth, excessive tenderness, drainage. There is ecchymosis in the antecubital space without associated focal swelling. There is more diffuse swelling throughout the surgical site which is expected, it is all soft to palpation and the swelling has remained stable throughout the day. Weight / BMI Weight Weight: 179 lb 14.355 oz Body Mass Index (BMI) 29.0 ABG / Lab / Microbiology Data 03/27/23 06:45 03/27/23 06:45 Laboratory: Laboratory Results - last 24 hr 03/26/23 19:17: POC Glucose 119 H 03/26/23 23:12: POC Glucose 239 H 03/27/23 06:45: WBC 7.6, RBC 3.04 L, Hgb 9.3 L, Hct 32.7 L, MCV 107.6 H, MCH 30.6, MCHC 28.4 L, RDW Std Deviation 67.6 H, RDW Coeff of Geovany 17.6 H, Plt Count 244, MPV 11.1, Immature Gran % (Auto) 0.500, Neut % (Auto) 62.6, Lymph % (Auto) 23.9, Metcalfe % (Auto) 11.8 H, Eos % (Auto) 0.5, Baso % (Auto) 0.7, Absolute Neuts (auto) 4.7, Absolute Lymphs (auto) 1.81, Nucleated RBC % 0.3, Differential Comment SCANNED, Anisocytosis 1+, Macrocytosis 1+, Sodium 137, Potassium 5.6 H, Chloride 107, Carbon Dioxide 21.0, Anion Gap 9, BUN 45 H, Creatinine 6.91 H, Estim Creat Clear Calc 6.99, Est GFR (MDRD) Af Amer 8 L, Est GFR (MDRD) Non-Af 6 L, BUN/Creatinine Ratio 6.5 L, Glucose 170 H, Calcium 8.4 L 03/27/23 06:59: POC Glucose 155 H 03/27/23 11:00: POC Glucose 138 H Radiography Diagnostic Testing: Radiology Impression Fluoroscopy 03/26/23 14:32 IMPRESSION: Satisfactory angioplasty and stent placement of the stenosis at the level of the fistula. Electronically Signed: Jimmie Wiley MD at 8:15 EST , D/C Instructions Discharge Diet: No restrictions Weight Bearing Status: Weight bearing as tolerated Lifting Restricted to (Lbs): 20 Lifting Restrictions: Do not lift greater than 20 pounds for 2-3 weeks Call your doctor if your incision/area has: Sudden Increased Bleeding, Increased Pain/ Swelling and Foul Smelling Discharge Call your doctor if you observe: Fever of 101 or Higher and Uncontrolled pain Additional Instructions: You have incisions along the inside of your left thigh. These are currently covered with adhesive dressings which are to remain in place for 1 week. Once these dressings are removed you do not need to keep these incision sites covered as they are protected by surgical glue. The 2 incision sites on your left arm are also covered with surgical glue. The glue will peel off on its own over the next couple of weeks. Please do not pick at it. Your blood pressures have been on the low side following surgery. This is most likely due to the anesthesia and I expect your blood pressures to return to their typical baseline over the next few days. Because your blood pressures are low we are going to make some temporary adjustments to your medications. For now, please continue to take your clonidine (catapress) 0.2 mg twice daily and your Entresto (sacubitril/valsartan) twice daily as prescribed. Please hold your carvedilol 25 mg twice daily and your amlodipine 10 mg daily and and your furosemide (Lasix) 80 mg daily. Please check your blood pressure at home 1-2 times a day for the next week. When your systolic blood pressure (top number) is greater than 140 then you may restart your other blood pressure medications. Please call the office if your blood pressures remain low or you have any other questions or concerns. You are cleared to have dialysis as scheduled on Saturday. They may continue to access your graft in the usual location. If they have any questions or concerns, they may reach out to our office. Do not lift greater 20 pounds for 2-3 weeks with your left arm. Otherwise, can continue with activity as tolerated. Your note for your first postoperative visit on 04/18/2023. If you need to change this appointment or have any other questions or concerns please call the office at [phone]. Please Follow Up With: Papito Martinez MD When: 04/18/2023 Meaningful Use Info Meaningful Use Diagnoses (Choose all that apply): None applicable Discharge Plan Admission Admit Date/Time: 03/26/23 09:14 Primary Reason for Your Visit: revascularization using distal inflow, angioplasty/stent venous anastomosis Attending Provider: Papito Martinez Primary Care Provider: Chris Ford Discharge Orders/Prescriptions Prescriptions: New oxycodone 5 mg Tablet 5 mg PO Q8H PRN PRN (Reason: Pain Score 4-10) 3 Days Qty: 9 0RF Continued aspirin 81 mg tablet,delayed release (DR/EC) 81 mg PO DAILY allopurinol 100 mg tablet 150 mg PO DAILY atorvastatin 40 mg tablet 40 mg PO SUTH clonidine HCl 0.2 mg tablet 0.2 mg PO BID ergocalciferol (vitamin D2) [Vitamin D2] 1,250 mcg (50,000 unit) capsule 1,250 mcg PO QMONTH Trulicity 1.5 mg/0.5 mL pen injector 1.5 mg subcut QWEEK One-A-Day Energy 9 mg iron-400 mcg-200 mg tablet 1 tab PO DAILY insulin degludec [Tresiba FlexTouch U-200] 200 unit/mL (3 mL) insulin pen 10 unit subcut QHS clonidine HCl 0.2 mg tablet 0.5 mg PO DAILY PRN (Reason: hypertensive emergency) Patient Comments: prn during dialysis Entresto 49-51 mg tablet 1 tab PO BID Held amlodipine 10 mg tablet 10 mg PO QHS Hold Instructions: Resume on 03/30/23. Hold until systolic blood pressure is greater than 140 carvedilol 25 mg tablet 25 mg PO BID Hold Instructions: Resume on 03/30/23. Hold until systolic blood pressure is greater than 140 Rx Instructions: must administer with a meal/food furosemide 80 mg tablet 80 mg PO DAILY Hold Instructions: Resume on 03/30/23. Hold until systolic blood pressure is greater than 140 Referrals / Follow Up: Chris Ford MD [Primary Care Provider] - Disposition Disposition (needs filled in before D/C Order can be placed): Home, Self Care
== END 2023-03-27 18:09 | disposition home or self-care (01) | DRG 252 ==
LOC: ACINP 09:15 → PCU 19:41
PROVIDERS: Admitting Provider Surgery Trauma Surgery; PCP Family Medicine; Referring Provider Surgery Trauma Surgery; Visit Provider Surgery Trauma Surgery
PROC: 057A3DZ Dilation of Left Brachial Vein with Intraluminal Device, Percutaneous Approach (ICD-10-PCS; principal; 2023-03-26 10:45)
DX: T82.898A Other specified complication of vascular prosthetic devices, implants and grafts, initial encounter (principal); N18.6 End stage renal disease; I12.0 Hypertensive chronic kidney disease with stage 5 chronic kidney disease or end stage renal disease; T82.858A Stenosis of other vascular prosthetic devices, implants and grafts, initial encounter; E11.22 Type 2 diabetes mellitus with diabetic chronic kidney disease; Z99.2 Dependence on renal dialysis; Z79.4 Long term (current) use of insulin; N18.9 Chronic kidney disease, unspecified; Z79.82 Long term (current) use of aspirin; Z79.899 Other long term (current) drug therapy
CPT/HCPCS: 36415; 76000; 80048; 82962; 85025; 86850; 86900; 86901; 94762; 99252; A4648; C1753; C1769; C1894; J7040; A4216; G0463; J2405

== ENCOUNTER 2023-11-26 07:11 | Day surgery (SDC) | payer MEDICARE, MEDICAID, SELFPAY ==
[2023-11-26] VITALS (9 sets, daily range): BP systolic 94–150; BP diastolic 54–70; PULSE 55–68; RESP 16–18; TEMP 36.2–36.8; O2SAT 98–100; BMI 29.8
[2023-11-26] MEDS: 0.9% Normal Saline (500mL Bag) 500 ML 15 ML IV (07:56)
[2023-11-26 08:05] LABS: Hematocrit 41.1 % (37-47); Hemoglobin 12.8 g/dL (12.0-15.0); Mean Corp Hgb Conc 31.1 g/dL (32-36); Mean Corpuscular Hgb 30.1 pg (27.0-32.0); Mean Corpuscular Volume 96.7 fL (81-99); Mean Platelet Vol. 10.6 fl (6.2-12.0); POSITIVE MORPHOLOGY YES; Platelet Count 248 K/mm3 (150-450); RBC Distribution Width CV 18.4 % (11.6-14.6); RBC Distribution Width SD 65.3 fl (35.1-43.9); Red Blood Count 4.25 M/mm3 (4.2-5.4); White Blood Count 7.5 K/mm3 (4.4-11.0)
[2023-11-26 08:14] LABS: Scan Indicated on CBC? Y/N YES- FLAGS NOTED
--- NOTE | 2023-11-26 08:16 | PRE.ANES_ITS ---
ASA Classification* ASA Classification ASA Classification: 3 Assessment & Plan Anesthesia* Anesthesia Assessment Anesthesia Assessment: Discussed sedation and/or anesthesia options, risks, benefits, and alternatives with patient/parents/legal guardian/POA. Questions invited. The patient/parents/legal guardian/POA seems to understand and agrees to proceed with anesthesia plan. Reviewed the physical assessment, medical history, allergy history and patient home medications list prior to surgery/procedure/anesthetic and documented any changes. Performed airway and anesthesia risk assessments. Anesthesia Type Anesthesia Type: MAC Anesthesia Focused Assessment* Temperature: 97.2 F Pulse Rate: 55 Blood Pressure: 150/65 Respiratory Rate: 16 Pulse Ox: 100 Airway Assessment Mouth opens: >3 cm Mallampati Score: II Focused Labs Anesthesia Preop lab: CBC WBC 7.5 K/mm3 (4.4-11.0) 11/26/23 07:55 RBC 4.25 M/mm3 (4.2-5.4) 11/26/23 07:55 Hgb 12.8 g/dL (12.0-15.0) 11/26/23 07:55 Hct 41.1 % (37-47) 11/26/23 07:55 Plt Count 248 K/mm3 (150-450) 11/26/23 07:55 CHEMISTRY Potassium 5.6 mmol/L (3.5-5.1) H 03/27/23 06:45 Sodium 137 mmol/L (136-145) 03/27/23 06:45 BUN 45 mg/dL (7-18) H 03/27/23 06:45 Creatinine 6.91 mg/dL (0.55-1.02) H 03/27/23 06:45 Glucose 170 mg/dL (74-106) H 03/27/23 06:45 POC Glucose 138 mg/dL (74-106) H 03/27/23 11:00 COAG Pre-Assessment Diagnosis/Proposed Procedure Planned Operative Procedure(s): RIGHT ARM ARTERIOVENOUS FISTULA CREATION Anesthesia History Anesthesia History - inspector publications: Anesthesia History - inspector publications Hx Hospitalization No 11/11/23 13:56 Any Problems With Anesthesia No 11/11/23 13:56 Cholinesterase deficiency No 11/11/23 13:56 You/Your Family Experience No 11/11/23 13:56 fever (hyperthermia) with Relationship Recent Exposure to Contagious No 11/26/23 07:50 Disease Does patient have nerve No 11/11/23 13:56 stimulator Patient instructed to have device shut off --Does patient have Pacemaker No 11/26/23 07:52 or ICD? When Was Last Pacemaker Check QUESTION #4 FULL TEXT: You/Your Family Experience fever (hyperthermia) with Anesthesia Last Oral Intake Last Oral intake: Last Oral Intake NPO since 19:00 11/26/23 07:52 Meds taken in AM with sips of Yes 11/26/23 07:52 water? Meds patient instructed to take am of surgery PONV PONV - inspector publications: PONV - inspector publications Female Yes 11/11/23 13:56 HX of Motion Sickness No 11/11/23 13:56 HX of N/V After Surgery No 11/11/23 13:56 Non-Smoker Yes 11/11/23 13:56 Duration of Surgery greater Yes 11/11/23 13:56 than 60 minutes Number of Risk Factors 3 11/11/23 13:56 PONV Score Moderate Risk 11/11/23 13:56 Height & Weight Height & Weight: Anesthesia: Height & Weight Height 5 ft 6 in 11/26/23 07:52 Weight: 83.915 kg 11/26/23 07:52 Body Mass Index (BMI) 29.8 11/26/23 07:52 Respiratory Assessment Respiratory Assessment - inspector publications: Respiratory Tract Infection Hx - inspector publications Hx Respiratory Tract Infection No 11/11/23 13:56 STOP Sleep Apnea STOP Sleep Apnea - inspector publications: STOP Sleep Apnea - inspector publications Hx Hypertension Yes: MOSTLY CONTROLLED WITH 11/11/23 13:56 MEDS Hx Sleep Apnea No 11/11/23 13:56 CPAP BIPAP Do you snore loudly (louder Yes 11/11/23 13:56 than talking or can be heard Do you often feel tired/ No 11/11/23 13:56 fatigued/ sleepy during daytime? Has anyone observed you stop No 11/11/23 13:56 breathing during sleep? STOP Results Positive 11/11/23 13:56 QUESTION #5 FULL TEXT : Do you snore loudly (louder than talking or can be h eard through closed doors)? Tobacco Use History Tobacco Use History - inspector publications: Tobacco Use History - inspector publications Tobacco Use Smoking Status Never smoker 11/11/23 13:56 Hx Tobacco Use No 11/11/23 13:56 Years Smoking Packs Smoked per Day Smoking Cessation Date was within the last 15 years Hx Smoking Cessation Date Hx Smoking Cessation Counseling Hematologic Medial History Hematologic Hx - inspector publications: Hematologic Medical Hx - hadoop analyst Hx of Blood Transfusion No 11/11/23 13:56 Hx of Transfusion in last 3 No 11/11/23 13:56 Months Date of Last Transfusion (if within last 3 months) Ever experience any problems No 11/11/23 13:56 with transfusion(s)? Specify any problems Hx of Preganancy in last 3 No 11/11/23 13:56 Months Nurse Filling Out Transfusion DSCHRIBER 11/11/23 13:56 & Questions: Date: 11/11/23 11/11/23 13:56 Time: 13:58 11/11/23 13:56 Patient unable to answer at this time (ie. confused, unrespo /Reproduction History /Reproductive History - inspector publications: /Reproductive Hx- inspector publications Hx Now Gestational Age (in weeks): EDC: Hx Hx Para Hx Section SAB No 11/11/23 13:56 Active Medications Active Medications: Current Medications Generic Name Dose Route Start Last Admin Trade Name Freq PRN Reason Stop Dose Admin Cefazolin Sodium 2 gm/ Sodium 110 mls @ 150 mls/hr 11/26/23 14:00 Chloride IV 11/26/23 14:43 PREOP ONE Sodium Chloride 500 mls @ 0 mls/hr 11/26/23 07:30 11/26/23 07:56 IV 15 mls/hr .Q0M FRANCESCO Administration KVO PFSH Medical History Wears glasses Post-menopausal Alcohol use Insulin dependent diabetes mellitus Arthritis Anemia Shortness of breath on exertion Non-smoker History of echocardiogram History of stress test History of renal dialysis Hypertension Gout Diabetes Problem with dialysis access Steal syndrome dialysis vascular access Chronic renal failure Home Medications ?Medication ?Instructions ?Recorded ?Last Taken ?Type allopurinol 100 mg tablet 150 mg PO DAILY GOUT 10/25/22 11/25/23 History amlodipine 10 mg tablet 10 mg PO QHS BP 10/25/22 11/25/23 History aspirin 81 mg tablet,delayed 81 mg PO DAILY HEART HEALTH 10/25/22 11/25/23 History release atorvastatin 40 mg tablet 40 mg PO SUTH CHOLESTEROL 10/25/22 11/24/23 History carvedilol 25 mg tablet 25 mg PO BID HEART 10/25/22 11/26/23 05:45 History dulaglutide 1.5 mg/0.5 mL 1.5 mg subcut WE DIABETES 10/25/22 11/20/23 History subcutaneous pen injector (Trulicity) ergocalciferol (vitamin D2) 1,250 1,250 mcg PO QMONTH SUPPLEMENT 10/25/22 11/11/23 History mcg (50,000 unit) capsule (Vitamin D2) furosemide 80 mg tablet 80 mg PO DAILY WATER PILL 10/25/22 11/25/23 History insulin degludec 200 unit/mL (3 10 unit subcut QHS PRN PRN DIABETES 10/25/22 03/25/23 History mL) subcutaneous pen (Tresiba FlexTouch U-200 insulin) multivit,Ca,rbb-epea-NQ-guarana-caff 1 tab PO DAILY SUPPLEMENT 10/25/22 11/25/23 History 9 mg iron-400 mcg-200 mg tablet (One-A-Day Energy) clonidine 0.3 mg/24 hr weekly 1 patch topical URBINA 11/11/23 11/24/23 History transdermal patch dorzolamide 22.3 mg-timolol 6.8 1 drp ophthalmic (eye) BID 11/11/23 11/25/23 History mg/mL eye drops hydralazine 100 mg tablet 100 mg PO BID 11/11/23 11/26/23 04:45 History sacubitril 97 mg-valsartan 103 mg 1 tab PO BID 11/11/23 11/26/23 04:45 History tablet (Entresto) Allergy/AdvReac Type Severity Reaction Status Date / Time No Known Allergies Allergy Verified 11/26/23 07:45 Family History Aunt CVA (cerebral vascular accident) Sister Asthma Daughter Thyroid disorder CVA (cerebral vascular accident) Daughter Diabetes Hypertension Kidney disease High cholesterol Surgical History Hx of excision of mass History of partial nephrectomy History of infusaport central venous catheter insertion History of arteriovenostomy for renal dialysis History of hysterectomy Social History Smoking Status: Never smoker alcohol intake: current alcohol intake frequency: a few times a month substance use type: does not use Review of Systems (Anesthesia) ROS Narrative System reviewed and no additional complaints, except as documented.
--- NOTE | 2023-11-26 08:35 | PCM.HP.STD ---
HPI - General HPI Narrative ALISON HILLIARD, is a 73 F who presents with ESRD, currently on HD via right IJ catheter. Vein mapping revealed adequate right upper arm basilic vein. Presents for stage I fistula [facility] Medical History Wears glasses Post-menopausal Alcohol use Insulin dependent diabetes mellitus Arthritis Anemia Shortness of breath on exertion Non-smoker History of echocardiogram History of stress test History of renal dialysis Hypertension Gout Diabetes Problem with dialysis access Steal syndrome dialysis vascular access Chronic renal failure Home Medications ?Medication ?Instructions ?Recorded ?Last Taken ?Type allopurinol 100 mg tablet 150 mg PO DAILY GOUT 10/25/22 11/25/23 History amlodipine 10 mg tablet 10 mg PO QHS BP 10/25/22 11/25/23 History aspirin 81 mg tablet,delayed 81 mg PO DAILY HEART HEALTH 10/25/22 11/25/23 History release atorvastatin 40 mg tablet 40 mg PO SUTH CHOLESTEROL 10/25/22 11/24/23 History carvedilol 25 mg tablet 25 mg PO BID HEART 10/25/22 11/26/23 05:45 History dulaglutide 1.5 mg/0.5 mL 1.5 mg subcut WE DIABETES 10/25/22 11/20/23 History subcutaneous pen injector (Trulicity) ergocalciferol (vitamin D2) 1,250 1,250 mcg PO QMONTH SUPPLEMENT 10/25/22 11/11/23 History mcg (50,000 unit) capsule (Vitamin D2) furosemide 80 mg tablet 80 mg PO DAILY WATER PILL 10/25/22 11/25/23 History insulin degludec 200 unit/mL (3 10 unit subcut QHS PRN PRN DIABETES 10/25/22 03/25/23 History mL) subcutaneous pen (Tresiba FlexTouch U-200 insulin) multivit,Ca,nke-dqxy-AO-guarana-caff 1 tab PO DAILY SUPPLEMENT 10/25/22 11/25/23 History 9 mg iron-400 mcg-200 mg tablet (One-A-Day Energy) clonidine 0.3 mg/24 hr weekly 1 patch topical URBINA 11/11/23 11/24/23 History transdermal patch dorzolamide 22.3 mg-timolol 6.8 1 drp ophthalmic (eye) BID 11/11/23 11/25/23 History mg/mL eye drops hydralazine 100 mg tablet 100 mg PO BID 11/11/23 11/26/23 04:45 History sacubitril 97 mg-valsartan 103 mg 1 tab PO BID 11/11/23 11/26/23 04:45 History tablet (Entresto) Allergy/AdvReac Type Severity Reaction Status Date / Time No Known Allergies Allergy Verified 11/26/23 07:45 Family History Aunt CVA (cerebral vascular accident) Sister Asthma Daughter Thyroid disorder CVA (cerebral vascular accident) Daughter Diabetes Hypertension Kidney disease High cholesterol Surgical History Hx of excision of mass History of partial nephrectomy History of infusaport central venous catheter insertion History of arteriovenostomy for renal dialysis History of hysterectomy Social History Smoking Status: Never smoker alcohol intake: current alcohol intake frequency: a few times a month substance use type: does not use ROS Constitutional Constitutional: Denies chills, fever(s), frequent falls, lethargy or weakness Eyes Eyes: Denies blind spots, change in vision or loss of vision ENT HEENT: Denies bleeding gums, hoarseness or sore throat Cardiovascular Cardiovascular: Denies abdominal pain, bluish discoloration of hand/feet, chest pain with activity, claudication, cold extremities, cyanosis, dyspnea on exertion, erythema on extremities, irregular heart rhythm, leg edema, leg ulcers, numbness in extremities or weakness in extremities Respiratory/Chest Respiratory/Chest: Denies cough, excessive phlegm production, shortness of breath at rest, shortness of breath with exertion or wheezing Gastrointestinal Gastrointestinal: Denies anorexia, change in stool character, constipation, diarrhea, melena or rectal bleeding Genitourinary Genitourinary: Denies dysuria or hematuria Musculoskeletal Musculoskeletal: Denies abnormal gait Integumentary Integumentary: Reports other Details: ; Denies erythema, non-healing lesions or wounds Neurologic Neurologic: Denies abnormal speech, focal weakness, headache(s), loss of vision, numbness, paresthesias or sensory deficit Hematologic/Lymphatic Hematologic/Lymphatic: Denies easy bleeding, easy bruising or lymphadenopathy Vital Signs Vital Signs Vital Signs: 11/26/23 07:50 11/26/23 07:52 11/26/23 08:17 Temperature 97.2 F L 97.2 F L Temperature Source Temporal Pulse Rate 55 L 55 L Respiratory Rate 16 16 Respiratory Pattern Normal Blood Pressure 150/65 H 150/65 H Blood Pressure Mean 93 Blood Pressure Source Monitor Blood Pressure Position Semi-Fowlers Blood Pressure Location Right Arm Pulse Ox 100 100 Oxygen Delivery Method Room Air Weight Weight: 185 lb Body Mass Index (BMI) 29.8 Physical Exam Const alert, oriented x3, no apparent distress and healthy appearing General Appearance: cooperative; Negative for combative or lethargic Orientation / Consciousness: awake Exam Limitations: no limitations HEENT Head and Scalp: normocephalic and atraumatic Eyes EOMs intact bilaterally General Eye: normal appearance of both eyes Neck full ROM, no lymphadenopathy, thyroid normal and No no carotid bruits General: trachea midline; Negative for lymphadenopathy or tenderness Thyroid: thyroid normal Lymph Lymphatic: Negative for no lymphadenopathy noted Resp normal respiratory effort, no use of accessory muscles and clear to auscultation bilaterally Effort and Inspection: Negative for labored, stridor or audible wheezes Cardio regular rate and regular rhythm Back/Spine Cervical Spine: cervical ROM normal Extremity full ROM, normal capillary refill and no clubbing, cyanosis or edema Skin no rashes or lesions noted and no wounds Neuro oriented x3, CN's II-XII intact bilaterally, no focal motor deficits and no sensory deficits noted Psych thought process normal, cooperative, affect normal, speech normal and activity/motor behavior normal Results Lab / Micro Data 11/26/23 07:55 11/26/23 07:55 Labs: Laboratory Results - last 24 hr 11/26/23 07:55: WBC 7.5, RBC 4.25, Hgb 12.8, Hct 41.1, MCV 96.7, MCH 30.1, MCHC 31.1 L, RDW Std Deviation 65.3 H, RDW Coeff of Geovany 18.4 H, Plt Count 248, MPV 10.6 Assessment & Plan Assessment/Plan (1) ESRD (end stage renal disease) on dialysis: PLAN: -right basilic AVF
[2023-11-26] MEDS: Cefazolin 2 GM in 0.9% Normal Saline (100mL Bag) 100 ML IV (08:40)
[2023-11-26 09:05] LABS: Bedside Glucose 146 mg/dL (74-106)
[2023-11-26] MEDS: Bupivacaine 0.25% 30 ML Vial (09:05)
[2023-11-26] MEDS: Lidocaine 1% (20 ml mdv) 20 ML Vial (09:05)
[2023-11-26 09:06] LABS: Anion Gap 11 (5-15); BUN 36 mg/dL (7-18); BUN/Creat Ratio 5.8 RATIO (10-20); Calcium,Total 9.6 mg/dL (8.5-10.1); Chloride 102 mmol/L (98-107); Creatinine, Serum 6.17 mg/dL (0.55-1.02); EST Glomerular Filtration Rate 7 mL/min (>60); Est Glom Filt Rate - Afr Amer 9 mL/min (>60); Glucose 144 mg/dL (74-106); Potassium 4.6 mmol/L (3.5-5.1); Sodium Level 137 mmol/L (136-145)
[2023-11-26] MEDS: Heparin Injection (Vial) 5,000 UNIT/ML VIAL 5000 UNIT ×2 (09:07→09:29)
--- NOTE | 2023-11-26 10:28 | OP.PCM_ITS ---
Problems Associated Problem List Diagnoses (1) ESRD (end stage renal disease) on dialysis: Report of Operation Date of Procedure: 11/26/23 Pre-Operative Diagnosis: ESRD Post-Operative Diagnosis: same Surgery/Procedure Performed:: right stage I brachio-basilic fistula creation Surgeon: Papito Martinez Type of Anesthesia: Local and MAC Estimated Blood Loss (mL): 5 Description of Procedure: HPI: Patient is a 73-year-old female with end-stage renal disease currently on dialysis. She previously had a left arm AV graft which resulted in significant steal was ultimately revised with a BARRETT procedure. Unfortunately there was insufficient inflow after the revision in order to maintain the graft and ultimately failed. She has since been using an IJ catheter with no significant issues. Her previous vein mapping revealed adequate right basilic vein. She is taken now for stage I basilic fistula creation. Description of procedure: Upon obtaining informed consent and verification correct patient procedure site patient taken to the operating where she was positioned prepped and draped in usual sterile fashion. Timeout was performed and moderate sedation ministered by anesthesia. Ultrasound was used to evaluate the basilic vein and the cubital branch which was in close proximity to the brachial artery just distal to the antecubital crease. Skin overlying this location was anesthetized 1% lidocaine and transverse incision was made 1 fingerbreadth inferior to the antecubital crease. Bovie electrocautery was then used to dissect down through subcutaneous tissue and self-retaining retractor put in position. Sharp dissection used to dissect to the cubital branch which was dissected free proximal and distal. Next Bovie was used to dissect down to the level the fascia which was excised in Mosque configuration and self- retaining tractor moved deeper in the wound. Sharp dissection used to dissect free the brachial artery proximal and distal neurotomy was placed vessel loop. Patient was then heparinized allowed circuit for 3 minutes during which time the distal branches of the cubital vein were ligated with silk ties and divided. The vein was then marked to maintain orientation and then dilated up to 3 mm and then flushed with heparinized saline. The brachial artery was occluded with Vesseloops and longitudinal arteriotomy was created with 11 blade extended with Fermin scissors. The vein was then beveled to match the arteriotomy and anastomosis performed using a 6-0 Prolene in a running fashion. Prior to clamp suture line vessels were backbled after completing suture line clamps removed and satisfactory stasis was noted. There is a palpable thrill in the fistula and a palpable radial pulse at the wrist remained. The incision was then inspected for hemostasis and the heparin was reversed with protamine. The incision was then closed with 3-0 Vicryl, 4 Monocryl and Dermabond for the skin. At the conclusion of the case the patient was taken the recovery room with anticipated discharge to home.
--- NOTE | 2023-11-26 10:29 | DCINST_ITS ---
Discharge Instructions Diet Discharge Diet: No restrictions Activity Lifting Restrictions: do not lift > 20 lbs for 2 weeks with right arm Additional Activity Instructions:: do not submerge incision for 2 weeks Dressing / Incision Call your doctor if your incision/area has: Sudden Increased Bleeding, Increased Pain/ Swelling, Increased Redness and Foul Smelling Discharge Call your doctor if you observe: Coldness, Increased Pain Remove Dressing in: 2 days Follow Up Care Test Results: Test results from this visit will be discussed in further detail at your follow- up appointment, if applicable. Discharge Plan Admission Attending Provider: Papito Martinez Primary Care Provider: Gretchen Rose Instructions Print Language: Upper Sorbian Discharge Orders/Prescriptions Prescriptions: New oxycodone 5 mg tablet 5 mg PO Q8H PRN (Reason: pain) 2 Days Qty: 6 0RF Continued aspirin 81 mg tablet,delayed release (DR/EC) 81 mg PO DAILY allopurinol 100 mg tablet 150 mg PO DAILY amlodipine 10 mg tablet 10 mg PO QHS atorvastatin 40 mg tablet 40 mg PO SUTH carvedilol 25 mg tablet 25 mg PO BID Rx Instructions: must administer with a meal/food ergocalciferol (vitamin D2) [Vitamin D2] 1,250 mcg (50,000 unit) capsule 1,250 mcg PO QMONTH furosemide 80 mg tablet 80 mg PO DAILY Trulicity 1.5 mg/0.5 mL pen injector 1.5 mg subcut WE One-A-Day Energy 9 mg iron-400 mcg-200 mg tablet 1 tab PO DAILY insulin degludec [Tresiba FlexTouch U-200] 200 unit/mL (3 mL) insulin pen 10 unit subcut QHS PRN PRN (Reason: DIABETES) Rx Instructions: IF BLOOD SUGAR OVER 200 THEN TAKES INJECTION clonidine 0.3 mg/24 hr patch weekly 1 patch topical URBINA hydralazine 100 mg tablet 100 mg PO BID dorzolamide-timolol 22.3-6.8 mg/mL drops 1 drp ophthalmic (eye) BID Entresto 97-103 mg tablet 1 tab PO BID Referrals / Follow Up: Gretchen Rose MD [Primary Care Provider] - Disposition Disposition (needs filled in before D/C Order can be placed): Home, Self Care
--- NOTE | 2023-11-26 10:39 | PCM.POST.ANE ---
Anesthesia: Postop Eval I Current Vital Signs Temperature: 98.2 F Pulse Rate: 68 Blood Pressure: 94/54 Respiratory Rate: 18 Pulse Ox: 100 Oxygen Delivery Method: Room Air Assessment Airway patent: Yes Spontaneous unlabored respirations: Yes Mental status: Awake and Calm nausea: No Vomiting: No Anesthesia Complication: No Fluid Hydration Crystalloid volume administer (ml): 100 Total IV fluid infused: 100 Progress Note Anesthesia document: Postop Eval 1 completed: Yes
--- NOTE | 2023-11-26 13:24 | POSTOPAN2_ITS ---
Anesthesia Postop Eval I Sum Postop Eval Completion status Anesthesia document: Postop Eval 1 completed: Yes Anesthesia Postop Eval I Summary Anesthesia Postop Eval I Summary: Anesthesia Postop Eval I: Assessment Summary Airway patent Yes 11/26/23 10:39 [email or web address] Spontaneous unlabored Yes 11/26/23 10:39 [email or web address] respirations Mental status Awake,Calm 11/26/23 10:39 [email or web address] nausea No 11/26/23 10:39 [email or web address] Vomiting No 11/26/23 10:39 TRAUMA DIRECTORAVIS Anesthesia Postop Eval I: Fluid Summary Crystalloid volume administer 100 11/26/23 10:39 [email or web address] (ml) Colloids volume administered ( ml) Blood Product volume administered (ml) Total IV fluid infused 100 11/26/23 10:39 [email or web address] Anesthesia Postop Eval I: Summary Notes Anesthesia Complication No 11/26/23 10:39 TRAUMA DIRECTORAVIS Anesthesia Complication Comment: Post-operative progress note Anesthesia: Postop Eval II Evaluation Mental status: Awake and Calm Pain Level: 1 nausea: No Vomiting: No Complications Anesthesia Complication: No
--- NOTE | 2023-11-26 13:24 | PCM.POSTANE2 ---
Anesthesia Postop Eval I Sum Postop Eval Completion status Anesthesia document: Postop Eval 1 completed: Yes Anesthesia Postop Eval I Summary Anesthesia Postop Eval I Summary: Anesthesia Postop Eval I: Assessment Summary Airway patent Yes 11/26/23 10:39 [email or web address] Spontaneous unlabored Yes 11/26/23 10:39 [email or web address] respirations Mental status Awake,Calm 11/26/23 10:39 [email or web address] nausea No 11/26/23 10:39 [email or web address] Vomiting No 11/26/23 10:39 CEILING CLEANERAVIS Anesthesia Postop Eval I: Fluid Summary Crystalloid volume administer 100 11/26/23 10:39 [email or web address] (ml) Colloids volume administered ( ml) Blood Product volume administered (ml) Total IV fluid infused 100 11/26/23 10:39 CEILING [email or web address] Anesthesia Postop Eval I: Summary Notes Anesthesia Complication No 11/26/23 10:39 CEILING CLEANERAVIS Anesthesia Complication Comment: Post-operative progress note Anesthesia: Postop Eval II Evaluation Mental status: Awake and Calm Pain Level: 1 nausea: No Vomiting: No Complications Anesthesia Complication: No
== END 2023-11-26 11:41 | disposition home or self-care (01) ==
LOC: SDC 07:13 → AC 07:37
PROVIDERS: PCP Family Medicine; Referring Provider Surgery Trauma Surgery; Visit Provider Surgery Trauma Surgery
PROC: (CPT 36821; principal; 2023-11-26 08:15)
DX: Z45.2 Encounter for adjustment and management of vascular access device (principal); I12.0 Hypertensive chronic kidney disease with stage 5 chronic kidney disease or end stage renal disease; N18.6 End stage renal disease; Z79.4 Long term (current) use of insulin; E11.22 Type 2 diabetes mellitus with diabetic chronic kidney disease; Z99.2 Dependence on renal dialysis; Z79.82 Long term (current) use of aspirin; Z79.899 Other long term (current) drug therapy
CPT/HCPCS: 36821; 01844; 80048; 82962; 85027; A4648; J7040; J2405

== ENCOUNTER 2024-02-04 07:54 | Day surgery (SDC) | payer MEDICARE, MEDICAID, SELFPAY ==
[2024-02-04] VITALS (8 sets, daily range): BP systolic 108–156; BP diastolic 59–93; PULSE 54–61; RESP 16–17; TEMP 36.1–36.6; O2SAT 98–100; BMI 29.5
--- NOTE | 2024-02-04 07:59 | PRE.ANES_ITS ---
ASA Classification* ASA Classification ASA Classification: 3 Assessment & Plan Anesthesia* Anesthesia Assessment Anesthesia Assessment: Discussed sedation and/or anesthesia options, risks, benefits, and alternatives with patient/parents/legal guardian/POA. Questions invited. The patient/parents/legal guardian/POA seems to understand and agrees to proceed with anesthesia plan. Reviewed the physical assessment, medical history, allergy history and patient home medications list prior to surgery/procedure/anesthetic and documented any changes. Performed airway and anesthesia risk assessments. Anesthesia Type Anesthesia Type: MAC (see written pre anesthesia record for full assessment) Anesthesia Focused Assessment* Airway Assessment Mouth opens: >3 cm Mallampati Score: II Focused Labs Anesthesia Preop lab: CBC WBC 7.5 K/mm3 (4.4-11.0) 11/26/23 07:55 RBC 4.25 M/mm3 (4.2-5.4) 11/26/23 07:55 Hgb 12.8 g/dL (12.0-15.0) 11/26/23 07:55 Hct 41.1 % (37-47) 11/26/23 07:55 Plt Count 248 K/mm3 (150-450) 11/26/23 07:55 CHEMISTRY Potassium 4.6 mmol/L (3.5-5.1) 11/26/23 07:55 Sodium 137 mmol/L (136-145) 11/26/23 07:55 BUN 36 mg/dL (7-18) H 11/26/23 07:55 Creatinine 6.17 mg/dL (0.55-1.02) H 11/26/23 07:55 Glucose 144 mg/dL (74-106) H 11/26/23 07:55 POC Glucose 146 mg/dL (74-106) H 11/26/23 07:50 COAG Pre-Assessment Diagnosis/Proposed Procedure Planned Operative Procedure(s): RIGHT BRACHIOBASILIC AVF TRANSPORTATION STAGE 2 Anesthesia History 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 When Was Last Pacemaker Check QUESTION #4 FULL TEXT: You/Your Family Experience fever (hyperthermia) with Anesthesia Last Oral Intake Last Oral intake: Last Oral Intake NPO since Meds taken in AM with sips of water? Meds patient instructed to take am of surgery PONV PONV - garden machinery mechanic: PONV - garden machinery mechanic Female Yes 01/29/24 08:41 HX of Motion Sickness No 01/29/24 08:41 HX of N/V After Surgery No 01/29/24 08:41 Non-Smoker Yes 01/29/24 08:41 Duration of Surgery greater Yes 01/29/24 08:41 than 60 minutes Number of Risk Factors 3 01/29/24 08:41 PONV Score Moderate Risk 01/29/24 08:41 Height & Weight Height & Weight: Anesthesia: Height & Weight Height 5 ft 6 in 12/25/23 10:42 Respiratory Assessment Respiratory Assessment - garden machinery mechanic: Respiratory Tract Infection Hx - garden machinery mechanic Hx Respiratory Tract Infection No 01/29/24 08:41 STOP Sleep Apnea STOP Sleep Apnea - garden machinery mechanic: STOP Sleep Apnea - garden machinery mechanic Hx Hypertension Yes: MOSTLY CONTROLLED WITH 01/29/24 08:41 MEDS Hx Sleep Apnea No 01/29/24 08:41 CPAP BIPAP Do you snore loudly (louder Yes 01/29/24 08:41 than talking or can be heard Do you often feel tired/ No 01/29/24 08:41 fatigued/ sleepy during daytime? Has anyone observed you stop No 01/29/24 08:41 breathing during sleep? STOP Results Positive 01/29/24 08:41 QUESTION #5 FULL TEXT : Do you snore loudly (louder than talking or can be heard through closed doors)? Tobacco Use History Tobacco Use History - garden machinery mechanic: Tobacco Use History - garden machinery mechanic Tobacco Use Smoking Status Never smoker 01/29/24 08:41 Hx Tobacco Use No 01/29/24 08:41 Years Smoking Packs Smoked per Day Smoking Cessation Date was within the last 15 years Hx Smoking Cessation Date Hx Smoking Cessation Counseling Hematologic Medial History Hematologic Hx - garden machinery mechanic: Hematologic Medical Hx - documentation spec Hx of Blood Transfusion No 01/29/24 08:41 Hx of Transfusion in last 3 No 01/29/24 08:41 Months Date of Last Transfusion (if within last 3 months) Ever experience any problems No 01/29/24 08:41 with transfusion(s)? Specify any problems Hx of Preganancy in last 3 No 01/29/24 08:41 Months Nurse Filling Out Transfusion DSCHRIBER 01/29/24 08:41 & Questions: Date: 01/29/24 01/29/24 08:41 Time: 08:42 01/29/24 08:41 Patient unable to answer at this time (ie. confused, unrespo /Reproduction History /Reproductive History - garden machinery mechanic: /Reproductive Hx- garden machinery mechanic Hx Now No 01/29/24 08:41 Gestational Age (in weeks): EDC: Hx Hx Para Hx Section SAB No 01/29/24 08:41 Active Medications Active Medications: Current Medications Generic Name Dose Route Start Last Admin Trade Name Freq PRN Reason Stop Dose Admin Cefazolin Sodium 2 gm/ Sodium 110 mls @ 150 mls/hr 02/04/24 09:30 Chloride IV 02/04/24 10:13 PREOP ONE [facility] Medical History Wears glasses Post-menopausal Alcohol use Insulin dependent diabetes mellitus Arthritis Anemia Shortness of breath on exertion Non-smoker History of echocardiogram History of stress test History of renal dialysis Hypertension Gout Diabetes Problem with dialysis access Steal syndrome dialysis vascular access Home Medications ?Medication ?Instructions ?Recorded ?Last Taken ?Type allopurinol 100 mg tablet 150 mg PO DAILY GOUT 10/25/22 11/25/23 History amlodipine 10 mg tablet 10 mg PO QHS BP 10/25/22 11/25/23 History aspirin 81 mg tablet,delayed 81 mg PO DAILY HEART HEALTH 10/25/22 11/25/23 History release atorvastatin 40 mg tablet 40 mg PO SUTH CHOLESTEROL 10/25/22 11/24/23 History carvedilol 25 mg tablet 25 mg PO BID HEART 10/25/22 11/26/23 05:45 History dulaglutide 1.5 mg/0.5 mL 1.5 mg subcut WE DIABETES 10/25/22 01/22/24 History subcutaneous pen injector (Trulicity) ergocalciferol (vitamin D2) 1,250 1,250 mcg PO QMONTH SUPPLEMENT 10/25/22 11/11/23 History mcg (50,000 unit) capsule (Vitamin D2) furosemide 80 mg tablet 80 mg PO DAILY WATER PILL 10/25/22 11/25/23 History insulin degludec 200 unit/mL (3 10 unit subcut QHS PRN PRN DIABETES 10/25/22 03/25/23 History mL) subcutaneous pen (Tresiba FlexTouch U-200 insulin) multivit,Ca,mwp-lxsp-IL-guarana-caff 1 tab PO DAILY SUPPLEMENT 10/25/22 11/25/23 History 9 mg iron-400 mcg-200 mg tablet (One-A-Day Energy) clonidine 0.3 mg/24 hr weekly 1 patch topical URBINA 11/11/23 11/24/23 History transdermal patch dorzolamide 22.3 mg-timolol 6.8 1 drp ophthalmic (eye) BID 11/11/23 11/25/23 History mg/mL eye drops hydralazine 100 mg tablet 100 mg PO BID 11/11/23 11/26/23 04:45 History sacubitril 97 mg-valsartan 103 mg 1 tab PO BID 11/11/23 11/26/23 04:45 History tablet (Entresto) Allergy/AdvReac Type Severity Reaction Status Date / Time No Known Allergies Allergy Verified 01/30/24 15:22 Family History Aunt CVA (cerebral vascular accident) Sister Asthma Daughter Thyroid disorder CVA (cerebral vascular accident) Daughter Diabetes Hypertension Kidney disease High cholesterol Surgical History Hx of surgical procedure Hx of excision of mass History of partial nephrectomy History of infusaport central venous catheter insertion History of arteriovenostomy for renal dialysis History of hysterectomy Social History Smoking Status: Never smoker alcohol intake: current alcohol intake frequency: a few times a month substance use type: does not use Review of Systems (Anesthesia) ROS Narrative System reviewed and no additional complaints, except as documented.
[2024-02-04] MEDS: 0.9% Normal Saline (1000mL) 1,000 ML 15 ML IV (08:33)
[2024-02-04 08:37] LABS: Hematocrit 42.1 % (37-47); Hemoglobin 13.1 g/dL (12.0-15.0); Mean Corp Hgb Conc 31.1 g/dL (32-36); Mean Corpuscular Volume 96.3 fL (81-99); Mean Platelet Vol. 11.4 fl (6.2-12.0); Platelet Count 209 K/mm3 (150-450); RBC Distribution Width CV 15.9 % (11.6-14.6); RBC Distribution Width SD 57.1 fl (35.1-43.9); Red Blood Count 4.37 M/mm3 (4.2-5.4); White Blood Count 8.1 K/mm3 (4.4-11.0)
[2024-02-04 08:52] LABS: Bedside Glucose 151 mg/dL (74-106)
[2024-02-04 08:55] LABS: Anion Gap 9 (5-15); BUN 42 mg/dL (7-18); BUN/Creat Ratio 6.4 RATIO (10-20); Calcium,Total 9.9 mg/dL (8.5-10.1); Chloride 103 mmol/L (98-107); Creatinine, Serum 6.54 mg/dL (0.55-1.02); EST Glomerular Filtration Rate 7 mL/min (>60); Est Glom Filt Rate - Afr Amer 8 mL/min (>60); Estimated Creatinine Clearance 8.44 ml/min; Glucose 156 mg/dL (74-106); Potassium 4.5 mmol/L (3.5-5.1); Sodium Level 139 mmol/L (136-145)
--- NOTE | 2024-02-04 10:05 | HP.PCM_ITS ---
History and Physical Allergies No Known Allergies Allergy (Verified 01/30/24 15:22) Medications ?Medication ?Instructions ?Recorded ?Confirmed ?Type allopurinol 100 mg tablet 150 mg PO DAILY GOUT 10/25/22 01/30/24 History amlodipine 10 mg tablet 10 mg PO QHS BP 10/25/22 01/30/24 History aspirin 81 mg tablet,delayed 81 mg PO DAILY HEART HEALTH 10/25/22 01/30/24 History release atorvastatin 40 mg tablet 40 mg PO SUTH CHOLESTEROL 10/25/22 01/30/24 History carvedilol 25 mg tablet 25 mg PO BID HEART 10/25/22 01/30/24 History dulaglutide 1.5 mg/0.5 mL 1.5 mg subcut WE DIABETES 10/25/22 01/30/24 History subcutaneous pen injector (Trulicity) ergocalciferol (vitamin D2) 1,250 1,250 mcg PO QMONTH SUPPLEMENT 10/25/22 01/30/24 History mcg (50,000 unit) capsule (Vitamin D2) furosemide 80 mg tablet 80 mg PO DAILY WATER PILL 10/25/22 01/30/24 History insulin degludec 200 unit/mL (3 10 unit subcut QHS PRN PRN DIABETES 10/25/22 01/30/24 History mL) subcutaneous pen (Tresiba FlexTouch U-200 insulin) multivit,Ca,lld-tnkm-ML-guarana-caff 1 tab PO DAILY SUPPLEMENT 10/25/22 01/30/24 History 9 mg iron-400 mcg-200 mg tablet (One-A-Day Energy) clonidine 0.3 mg/24 hr weekly 1 patch topical URBINA 11/11/23 01/30/24 History transdermal patch dorzolamide 22.3 mg-timolol 6.8 1 drp ophthalmic (eye) BID 11/11/23 01/30/24 History mg/mL eye drops hydralazine 100 mg tablet 100 mg PO BID 11/11/23 01/30/24 History sacubitril 97 mg-valsartan 103 mg 1 tab PO BID 11/11/23 01/30/24 History tablet (Entresto) Is last menstrual period known: No Post menopausal: No Patient : No Have you fallen in the past year?: No Subjective Details: Doing well, no new concerns with right hand, some continued intermittent numbness. Objective Details: A&Ox3, NAD RRR Resp non labored +thrill to mid upper arm, bruit to axilla Coding Level of Care Code Global Post Op Diagnoses ESRD (end stage renal disease) on dialysis N18.6; Z99.2 [facility] Medical History (Updated 01/30/24 @ 16:[address] Papito Martinez MD) Wears glasses Post-menopausal Alcohol use Insulin dependent diabetes mellitus Arthritis Anemia Shortness of breath on exertion Non-smoker History of echocardiogram History of stress test History of renal dialysis Hypertension Gout Diabetes Problem with dialysis access Steal syndrome dialysis vascular access Surgical History (Updated 01/29/24 @ 08:44 by Katie Cam) Hx of surgical procedure Hx of excision of mass History of partial nephrectomy History of infusaport central venous catheter insertion History of arteriovenostomy for renal dialysis History of hysterectomy Family History Aunt CVA (cerebral vascular accident)Sister AsthmaDaughter Thyroid disorder CVA (cerebral vascular accident)Daughter Diabetes Hypertension Kidney disease High cholesterol Social History Smoking Status: Never smoker alcohol intake: current alcohol intake frequency: a few times a month substance use type: does not use Assessment and Plan (No Qualifiers) Assessment and Plan (1) ESRD (end stage renal disease) on dialysis: Status: Chronic Plan: -maturing well -still minimal or no steal -transposition
[2024-02-04] MEDS: Cefazolin 2 GM in 0.9% Normal Saline (100mL Bag) 100 ML IV (10:09)
[2024-02-04] MEDS: Heparin Injection (Vial) 5,000 UNIT/ML VIAL 5000 UNIT (10:35)
[2024-02-04] MEDS: Bupivacaine 0.25% 30 ML Vial (10:35)
[2024-02-04] MEDS: Lidocaine 1% (30 ml sdv) 30 ML Vial (10:35)
--- NOTE | 2024-02-04 12:40 | PCM.OPRPT ---
Problems Associated Problem List Diagnoses (1) ESRD (end stage renal disease) on dialysis: Report of Operation Date of Procedure: 02/04/24 Pre-Operative Diagnosis: prior stage I basilic fistula Post-Operative Diagnosis: same Surgery/Procedure Performed:: transposition basilic vein fistula, interposition ptfe extension Surgeon: Papito Martinez Type of Anesthesia: Local and MAC Estimated Blood Loss (mL): 15 Description of Procedure: HPI: Patient is a 73-year-old female with end-stage renal disease and previous right stage I basilic fistula creation. This has matured and she presents now for transposition. Given the depth of the vessel it is expected that some length of synthetic graft interposition will be required in order to obtain adequate length to transpose into a usable position. Description of procedure: Upon obtaining form consent and verification correct patient procedure site patient was taken to the operating where she was positioned prepped and draped in usual sterile fashion. Timeouts performed moderate sedation ministered by anesthesia. Ultrasound used to evaluate the basilic vein along the medial aspect of the right upper arm and was found to be patent and continuous with adequate caliber up to the axilla. Skin overlying the vessel was then anesthetized 1% lidocaine and longitudinal incision made. Bovie electrocautery was then used dissect down through the subcutaneous tissue until the fistula was visualized. This point sharp dissection was dissect along the entirety of the length of the fistula up to the axilla. Care was taken to identify and protect adjacent nerve structures which were crossing the basilic vein in multiple locations. Sidebranches were ligated with silk ties and divided once it had been mobilized from the antecubital fossa to the axilla we assessed the trajectory for our planned tunnel. Given the depth of the vessel particularly in the upper aspect of the arm it was definitely going to require some interposition synthetic graft. A tunneler was then used to tunnel from the distal aspect of the upper arm overlying the biceps muscle up to the axilla. Patient was then heparinized and allowed to circulate for 3 minutes. The vein was then marked to maintain orientation and then clamped and divided at the distal aspect of the incision. It was then flushed with heparinized saline and extracted from behind the adjacent nerves. A 6 mm standard wall PTFE nonrenal graft was then anastomosed to the outflow vein with 6-0 Prolene in running fashion. After completing the suture line the graft was then secured to the tunneler and pulled through to the distal aspect of the incision. The graft was then cut the length and anastomosis was performed to the inflow limb of the fistula with 6-0 Prolene in a running fashion. Prior to coming suture line vessels were backbled after completing suture line clamps removed and satisfactory hemostasis was noted. There is a palpable thrill and satisfactory Doppler signal in the fistula up through to the outflow. Heparin was then reversed with protamine and the incision inspected hemostasis. Was then closed with 2-0 Vicryl, 3-0 Vicryl, 4 Monocryl and Dermabond for the skin. The patient was then taken to the recovery area with anticipated discharge to home.
--- NOTE | 2024-02-04 12:42 | DCINST_ITS ---
Discharge Instructions Activity Lifting Restrictions: do not lift > 20 lbs for 3 weeks Additional Activity Instructions:: do not submerge incision for 3 weeks Dressing / Incision Call your doctor if your incision/area has: Sudden Increased Bleeding, Increased Pain/ Swelling, Increased Redness and Foul Smelling Discharge Call your doctor if you observe: Fever of 101 or Higher, Coldness, Increased Pain and Numbness or Tingling Remove Dressing in: 2 days Follow Up Care Test Results: Test results from this visit will be discussed in further detail at your follow- up appointment, if applicable. Discharge Plan Admission Attending Provider: Papito Martinez Primary Care Provider: Gretchen Rose Instructions Print Language: Citizen Of [place] Discharge Orders/Prescriptions Prescriptions: New oxycodone 5 mg tablet 5 mg PO Q8H PRN (Reason: pain) 4 Days Qty: 12 0RF Continued aspirin 81 mg tablet,delayed release (DR/EC) 81 mg PO DAILY allopurinol 100 mg tablet 150 mg PO DAILY amlodipine 10 mg tablet 10 mg PO QHS atorvastatin 40 mg tablet 40 mg PO SUTH carvedilol 25 mg tablet 25 mg PO BID Rx Instructions: must administer with a meal/food ergocalciferol (vitamin D2) [Vitamin D2] 1,250 mcg (50,000 unit) capsule 1,250 mcg PO QMONTH furosemide 80 mg tablet 80 mg PO DAILY Trulicity 1.5 mg/0.5 mL pen injector 1.5 mg subcut WE One-A-Day Energy 9 mg iron-400 mcg-200 mg tablet 1 tab PO DAILY insulin degludec [Tresiba FlexTouch U-200] 200 unit/mL (3 mL) insulin pen 10 unit subcut QHS PRN PRN (Reason: DIABETES) Rx Instructions: IF BLOOD SUGAR OVER 200 THEN TAKES INJECTION clonidine 0.3 mg/24 hr patch weekly 1 patch topical URBINA hydralazine 100 mg tablet 100 mg PO BID dorzolamide-timolol 22.3-6.8 mg/mL drops 1 drp ophthalmic (eye) BID Entresto 97-103 mg tablet 1 tab PO BID Referrals / Follow Up: Gretchen Rose MD [Primary Care Provider] - Disposition Disposition (needs filled in before D/C Order can be placed): Home, Self Care
--- NOTE | 2024-02-04 13:15 | PCM.POST.ANE ---
Anesthesia: Postop Eval I Current Vital Signs Temperature: 97.4 F Pulse Rate: 54 Blood Pressure: 108/93 Respiratory Rate: 16 Pulse Ox: 100 Oxygen Delivery Method: Room Air Assessment Airway patent: Yes Spontaneous unlabored respirations: Yes Mental status: Awake and Calm nausea: No Vomiting: No Anesthesia Complication: No Fluid Hydration Crystalloid volume administer (ml): 300 Total IV fluid infused: 300 Progress Note Anesthesia document: Postop Eval 1 completed: Yes
--- NOTE | 2024-02-04 14:40 | POSTOPAN2_ITS ---
Anesthesia Postop Eval I Sum Postop Eval Completion status Anesthesia document: Postop Eval 1 completed: Yes Anesthesia Postop Eval I Summary Anesthesia Postop Eval I Summary: Anesthesia Postop Eval I: Assessment Summary Airway patent Yes 02/04/24 13:15 [email or web address] Spontaneous unlabored Yes 02/04/24 13:15 [email or web address].[email or web address] respirations Mental status Awake,Calm 02/04/24 13:15 [employer].[email or web address] nausea No 02/04/24 13:15 [employer].[email or web address] Vomiting No 02/04/24 13:15 [email or web address] Anesthesia Postop Eval I: Fluid Summary Crystalloid volume administer 300 02/04/24 13:15 [employer] HELPER.[email or web address] (ml) Colloids volume administered ( ml) Blood Product volume administered (ml) Total IV fluid infused 300 02/04/24 13:15 [email or web address] Anesthesia Postop Eval I: Summary Notes Anesthesia Complication No 02/04/24 13:15 [email or web address] Anesthesia Complication Comment: Post-operative progress note Anesthesia: Postop Eval II Evaluation Mental status: Calm Pain Level: 2 nausea: No Vomiting: No Complications Anesthesia Complication: No
--- NOTE | 2024-02-04 14:40 | PCM.POSTANE2 ---
Anesthesia Postop Eval I Sum Postop Eval Completion status Anesthesia document: Postop Eval 1 completed: Yes Anesthesia Postop Eval I Summary Anesthesia Postop Eval I Summary: Anesthesia Postop Eval I: Assessment Summary Airway patent Yes 02/04/24 13:15 [email or web address] Spontaneous unlabored Yes 02/04/24 13:15 [email or web address] respirations Mental status Awake,Calm 02/04/24 13:15 [email or web address] nausea No 02/04/24 13:15 [employer].[email or web address] Vomiting No 02/04/24 13:15 [email or web address] Anesthesia Postop Eval I: Fluid Summary Crystalloid volume administer 300 02/04/24 13:15 CASINO [email or web address] (ml) Colloids volume administered ( ml) Blood Product volume administered (ml) Total IV fluid infused 300 02/04/24 13:15 [email or web address] Anesthesia Postop Eval I: Summary Notes Anesthesia Complication No 02/04/24 13:15 CASINO [email or web address] Anesthesia Complication Comment: Post-operative progress note Anesthesia: Postop Eval II Evaluation Mental status: Calm Pain Level: 2 nausea: No Vomiting: No Complications Anesthesia Complication: No
== END 2024-02-04 14:37 | disposition home or self-care (01) ==
LOC: SDC 07:57 → AC 07:59
PROVIDERS: PCP Family Medicine; Referring Provider Surgery Trauma Surgery; Visit Provider Surgery Trauma Surgery
PROC: (CPT 36832; principal; 2024-02-04 09:15)
DX: Z45.2 Encounter for adjustment and management of vascular access device (principal); I12.0 Hypertensive chronic kidney disease with stage 5 chronic kidney disease or end stage renal disease; N18.6 End stage renal disease; Z79.4 Long term (current) use of insulin; E11.22 Type 2 diabetes mellitus with diabetic chronic kidney disease; Z99.2 Dependence on renal dialysis; Z79.899 Other long term (current) drug therapy; Z79.82 Long term (current) use of aspirin; Z79.85 Long-term (current) use of injectable non-insulin antidiabetic drugs
CPT/HCPCS: 36832; 01844; 80048; 82962; 85027; 86850; 86900; 86901; A4648; J7030; J2405

== ENCOUNTER 2024-04-29 10:31 | Day surgery (SDC) | payer MEDICARE, MEDICAID, SELFPAY ==
[2024-04-28 08:38] VITALS: BMI 29.7
--- NOTE | 2024-04-29 11:50 | PCM.HP.STD ---
HPI - General HPI Narrative ALISON HILLIARD, is a 73 F who presents with right basilic fistula with poor flow volumes. [facility] Medical History Wears glasses Post-menopausal Alcohol use Insulin dependent diabetes mellitus Arthritis Anemia Shortness of breath on exertion Non-smoker History of echocardiogram History of stress test History of renal dialysis Hypertension Gout Diabetes Problem with dialysis access Steal syndrome dialysis vascular access Home Medications ?Medication ?Instructions ?Recorded ?Last Taken ?Type allopurinol 100 mg tablet 150 mg PO DAILY GOUT 10/25/22 02/03/24 History amlodipine 10 mg tablet 10 mg PO QHS BP 10/25/22 04/29/24 History aspirin 81 mg tablet,delayed 81 mg PO DAILY HEART HEALTH 10/25/22 02/03/24 History release atorvastatin 40 mg tablet 40 mg PO SUTH CHOLESTEROL 10/25/22 02/03/24 History carvedilol 25 mg tablet 25 mg PO BID HEART 10/25/22 04/29/24 History dulaglutide 1.5 mg/0.5 mL 1.5 mg subcut WE DIABETES 10/25/22 01/22/24 History subcutaneous pen injector (Trulicity) ergocalciferol (vitamin D2) 1,250 1,250 mcg PO QMONTH SUPPLEMENT 10/25/22 02/03/24 History mcg (50,000 unit) capsule (Vitamin D2) furosemide 80 mg tablet 80 mg PO DAILY WATER PILL 10/25/22 02/03/24 History insulin degludec 200 unit/mL (3 10 unit subcut QHS PRN PRN DIABETES 10/25/22 03/25/23 History mL) subcutaneous pen (Tresiba FlexTouch U-200 insulin) multivit,Ca,buk-pskz-UR-guarana-caff 1 tab PO DAILY SUPPLEMENT 10/25/22 02/03/24 History 9 mg iron-400 mcg-200 mg tablet (One-A-Day Energy) clonidine 0.3 mg/24 hr weekly 1 patch topical URBINA 11/11/23 02/02/24 History transdermal patch dorzolamide 22.3 mg-timolol 6.8 1 drp ophthalmic (eye) BID 11/11/23 02/03/24 History mg/mL eye drops hydralazine 100 mg tablet 100 mg PO BID 11/11/23 02/03/24 History sacubitril 97 mg-valsartan 103 mg 1 tab PO BID 11/11/23 04/29/24 History tablet (Entresto) oxycodone 5 mg tablet 5 mg PO Q8H PRN pain 4 days #12 02/04/24 Unknown Rx tabs Allergy/AdvReac Type Severity Reaction Status Date / Time No Known Allergies Allergy Verified 03/05/24 15:26 Family History Aunt CVA (cerebral vascular accident) Sister Asthma Daughter Thyroid disorder CVA (cerebral vascular accident) Daughter Diabetes Hypertension Kidney disease High cholesterol Surgical History Hx of surgical procedure Hx of excision of mass History of partial nephrectomy History of infusaport central venous catheter insertion History of arteriovenostomy for renal dialysis History of hysterectomy Social History Smoking Status: Never smoker alcohol intake: current alcohol intake frequency: a few times a month substance use type: does not use ROS Constitutional Constitutional: Denies chills, fever(s), frequent falls, lethargy or weakness Eyes Eyes: Denies blind spots, change in vision or loss of vision ENT HEENT: Denies bleeding gums, hoarseness or sore throat Cardiovascular Cardiovascular: Denies abdominal pain, bluish discoloration of hand/feet, chest pain with activity, claudication, cold extremities, cyanosis, dyspnea on exertion, erythema on extremities, irregular heart rhythm, leg edema, leg ulcers, numbness in extremities or weakness in extremities Respiratory/Chest Respiratory/Chest: Denies cough, excessive phlegm production, shortness of breath at rest, shortness of breath with exertion or wheezing Gastrointestinal Gastrointestinal: Denies anorexia, change in stool character, constipation, diarrhea, melena or rectal bleeding Genitourinary Genitourinary: Denies dysuria or hematuria Musculoskeletal Musculoskeletal: Denies abnormal gait Integumentary Integumentary: Reports other Details: ; Denies erythema, non-healing lesions or wounds Neurologic Neurologic: Denies abnormal speech, focal weakness, headache(s), loss of vision, numbness, paresthesias or sensory deficit Hematologic/Lymphatic Hematologic/Lymphatic: Denies easy bleeding, easy bruising or lymphadenopathy Vital Signs Vital Signs Vital Signs: Weight Weight: 184 lb Body Mass Index (BMI) 29.7 Physical Exam Const alert, oriented x3, no apparent distress and healthy appearing General Appearance: cooperative; Negative for combative or lethargic Orientation / Consciousness: awake Exam Limitations: no limitations HEENT Head and Scalp: normocephalic and atraumatic Eyes EOMs intact bilaterally General Eye: normal appearance of both eyes Neck full ROM and no lymphadenopathy General: trachea midline Lymph Lymphatic: Negative for no lymphadenopathy noted Resp normal respiratory effort and no use of accessory muscles Effort and Inspection: Negative for labored, stridor or audible wheezes Cardio regular rate and regular rhythm Back/Spine Cervical Spine: cervical ROM normal Extremity full ROM, normal capillary refill and no clubbing, cyanosis or edema Skin no rashes or lesions noted and no wounds Neuro oriented x3, CN's II-XII intact bilaterally, no focal motor deficits and no sensory deficits noted Psych thought process normal, cooperative, affect normal, speech normal and activity/motor behavior normal Assessment & Plan Assessment/Plan (1) Arteriovenous fistula stenosis: QUALIFIERS: Encounter type: initial encounter Qualified Code(s): T82.858A - Stenosis of other vascular prosthetic devices, implants and grafts, initial encounter PLAN: -fistulagram
--- NOTE | 2024-04-29 15:41 | OP.PCM_ITS ---
Operative Report (Standard) Operative Information Date of Procedure: 04/29/24 Pre-Operative Diagnosis: Stenosis of right basilic fistula Post-Operative Diagnosis: Same Surgery/Procedure Performed: Fistulogram with angioplasty right upper extremity basilic fistula ecosystem ecology professor: No Type of Anesthesia: Local and Sedation,Conscious Procedure Start Time: 12:00 Procedure Stop Time: 12:30 Select all DRAINS/GRAFTS/IMPLANTS that apply: None Estimated Blood Loss: 8 Specimen collected: No Description of surgery: HPI: Patient is a 71-year-old female with end-stage renal disease currently on dialysis. She previously underwent a right basilic fistula creation and subsequent transposition which required interposition PTFE in order to obtain adequate length. They have been using her fistula with a single needle and continue to access her catheter. They have noted that she has diminish flow volume and a high-pitched bruit at the proximal aspect adjacent to the antecubital crease. She presents now for fistulogram with possible intervention. Description of procedure: Upon obtaining informed consent and verification correct patient procedure site patient was taken to the [facility] where she was positioned prepped and draped in usual sterile fashion. Time was performed with 5 sedation ministered Versed and fentanyl. Skin overlying the fistula was anesthetized 1% lidocaine the vessel accessed with a puncture needle wire and ultrasound guidance. This then exchanged for a 6 [place]ian sheath through which injection subtraction fistulogram and outflow venogram was performed. This revealed widely patent brisk contrast transit from the proximal fistula through the outflow vessels and into the central venous system with no evidence of central compression or occlusion. The fistula itself was widely patent of adequate caliber with no evidence of stenosis. We were unable to fully reflux into the proximal fistula so an 014 wire is advanced and a Kumpe catheter positioned just beyond the arterial anastomosis. This position further hand- injection subtraction fistulogram images were obtained which revealed an area of stenosis approximately 8 cm in length beginning just beyond the anastomosis of the initial fistula. The patient was in heparinized allowed to circulate for 3 minutes and Bentson wire advanced through the catheter and positioned in the brachial artery. The catheter was then withdrawn and a VaxCare conquest 6 x 40 angioplasty balloon was advanced in position and inflated to nominal for multiple inflations across the area of stenosis. This was then withdrawn and hand-injection fistulogram via the sheath with compression of the distal fistula was performed. This revealed satisfactory response with no extravasation or dissection no significant residual stenosis. Next a [facility] 6 x 80 paclitaxel coated angioplasty was advanced into position and inflated to nominal for 2 minutes then deflated withdrawn. Completion fistulogram revealed satisfactory response with no extravasation and no residual stenosis or dissection. A nylon pursestring sutures in place at the access site and the 6 Albanian sheath withdrawn followed by 5 minutes of any pressure with satisfactory stasis noted. The patient was then taken recovery with plan discharged to home. Surgical Findings: Stenosis of the proximal 8 centimeters of the fistula just beyond the anastomosis of the original brachial basilic creation and proximal to the anastomosis for the transposition. Complications Complications: No
== END 2024-04-29 13:45 | disposition home or self-care (01) ==
PROVIDERS: PCP Family Medicine; Referring Provider Surgery Trauma Surgery; Visit Provider Surgery Trauma Surgery
DX: T82.858A Stenosis of other vascular prosthetic devices, implants and grafts, initial encounter (principal); I12.0 Hypertensive chronic kidney disease with stage 5 chronic kidney disease or end stage renal disease; N18.6 End stage renal disease; E11.22 Type 2 diabetes mellitus with diabetic chronic kidney disease; Z99.2 Dependence on renal dialysis; Z79.899 Other long term (current) drug therapy; Y71.8 Miscellaneous cardiovascular devices associated with adverse incidents, not elsewhere classified
CPT/HCPCS: 36902; 76937; 99152; 99153; C1769; C2623; Q9967; C1725

== ENCOUNTER → 2024-10-27 | Outpatient (CLI) | payer MEDICARE, MEDICAID, SELFPAY ==
--- NOTE | 2024-10-27 10:49 | AVDS_ITS ---
Reason For Study Reason For Study: RUE AVF Evalution RIGHT Rt Inflow - 144.1/58.6 cm/s Rt Inflow - 532.8 ml/min Rt Anastomosis - 486.1/188.9 Rt Anastomosis - 1866 ml/min Rt Prox Graft - 457.5/230.5 cm/s Rt Prox Graft - 1274 ml/min Rt Mid Bicep - 442.2/223.3 cm/s Rt Mid Bicep - 376.2 ml/min Rt Mid Graft - 35.1/17.9 cm/s Rt Mid Graft - 332.3 ml/min Rt Dist Graft - 63.3/33.9 cm/s Rt Dist Graft - 589.0 ml/min Rt Outflow - 78.0/51.1 cm/s Rt Outflow - 469.7 ml/min Palpable cord felt at mid bicep. Diminished flow noted in correlating area on ultrasound. VL/AV Fistula/Dialysis Graft Scan Interpretation Summary Right upper extremity graft with diminished flow volumes and velocities mid and distal Ordering Physician: Chapis Solis Referring Physician: Gretchen Rush Performed By: Jak Giraldo RVT
== END | disposition home or self-care (01) ==
LOC: CVS 10:48
PROVIDERS: PCP Family Medicine; Referring Provider Physician Assistant; Visit Provider Physician Assistant
DX: T82.898A Other specified complication of vascular prosthetic devices, implants and grafts, initial encounter (principal); N18.6 End stage renal disease; T82.858A Stenosis of other vascular prosthetic devices, implants and grafts, initial encounter; Z99.2 Dependence on renal dialysis
CPT/HCPCS: 93990

== ENCOUNTER 2024-12-09 07:13 | Day surgery (SDC) | payer MEDICARE, MEDICAID, SELFPAY ==
[2024-12-08 08:30] VITALS: BMI 30.4
[2024-12-09 07:29] LABS: Hematocrit 36.9 % (37-47); Hemoglobin 11.6 g/dL (12.0-15.0); Mean Corp Hgb Conc 31.4 g/dL (32-36); Mean Corpuscular Volume 100.5 fL (81-99); Mean Platelet Vol. 10.4 fl (6.2-12.0); Platelet Count 259 K/mm3 (150-450); RBC Distribution Width CV 16.3 % (11.6-14.6); RBC Distribution Width SD 58.6 fl (35.1-43.9); Red Blood Count 3.67 M/mm3 (4.2-5.4); White Blood Count 8.2 K/mm3 (4.4-11.0)
--- OUTSIDE RECORDS SUMMARY | 2024-12-09 07:39 | XMS RPT_ITS | CCD ---
Author Organization [facility] Inform ion Partnership [facility] Care Team Providers [employer] Sales Representative Name Role Phone Unavailable Unavailable Unavailable Kelby Hamilton Unavailable Suleman Moreno Unavailable Kelby Hamilton Unavailable Kelby Hamilton R Unavailable Unavailable Kelby Hamilton R Unavailable Unavailable Dion Gaming Unavailable Unavailable Comment on above: Chest pain, unspecified type (Primary Dx ); Renal cell carcinoma of right kidney (HCC) Start: 11-21-2021 Isidro Benjamin LPN [facility] Comment on above: Type 2 diabetes mellitus without retinop athy (HCC) Start: 11-01-2021 End: 11-01-2021 Office outpatient visit 15 minutes Chris Stovall MD Work Phone: [facility] Comment on above: Gastritis due to Helicobacter species (P rimary Dx); Adenomatous polyp of transverse colon; Diverticulosis large intestine w/o perforation or abscess w/bleeding; Iron deficiency anemia, unspecified iron deficiency anemia type Start: 10-26-2021 End: 10-26-2021 Office outpatient visit 25 minutes Danny Rose MD Work Phone: [facility] Comment on above: 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, with long-term current use of insulin (HCC) (Primary Dx); Essential hypertension; Chronic gout of foot, unspecified cause, unspecified laterality; Mixed hyperlipidemia Start: 10-16-2021 End: 10-16-2021 Office outpatient visit 10 minutes Meenakshi Rider CNP Work Phone: [facility] Comment on above: Renal cell carcinoma of right kidney (HC C) (Primary Dx); Guaiac positive stools; Anemia due to stage 5 chronic kidney disease, not on chronic dialysis (HCC) Start: 10-16-2021 Orders Only Caro Raymond RN [facility] Start: 10-06-2021 End: 10-06-2021 Nursing evaluation of patient and report Meenakshi Rdier [employer] Work Phone: [facility] Comment on above: Stage 4 chronic kidney disease (HCC); Anemia due to stage 4 chronic kidney disease (HCC) Start: 09-14-2021 End: 09-14-2021 Office outpatient new 30 minutes Meenakshi Rider [employer] Work Phone: [facility] Comment on above: Other iron deficiency anemia; Occult blood positive stool Start: 09-05-2021 Refill Kelby Hamilton MD Work Phone: [facility] Comment on above: Essential hypertension Start: 09-01-2021 End: 09-01-2021 Nursing evaluation of patient and report Meenakshi Rider [employer] Work Phone: [facility] Comment on above: Stage 4 chronic kidney disease (HCC) (Pr imary Dx); Anemia due to stage 4 chronic kidney disease (HCC) Start: 08-28-2021 Orders Only Meenakshi Rider [employer] Work Phone: [facility] Comment on above: Other iron deficiency anemia (Primary Dx ); Occult blood positive stool Start: 08-25-2021 End: 08-25-2021 Nursing evaluation of patient and report Meenakshi Rider [employer] Work Phone: [facility] Comment on above: Stage 4 chronic kidney disease (HCC) (Pr imary Dx); Anemia due to stage 4 chronic kidney disease (HCC) Start: 08-18-2021 End: 08-18-2021 Nursing evaluation of patient and report Meenakshi Rider [employer] Work Phone: [facility] Comment on above: Other iron deficiency anemia (Primary Dx ); Stage 4 chronic kidney disease (HCC); Anemia due to stage 4 chronic kidney disease (HCC) Start: 08-14-2021 Orders Only Caro Raymond RN [facility] Start: 08-14-2021 End: 08-14-2021 Office outpatient new 30 minutes Meenakshi Rebeca Rider [employer] Work Phone: [facility] Comment on above: Other iron deficiency anemia (Primary Dx ); Stage 4 chronic kidney disease (HCC); Renal cell carcinoma of right kidney (HCC); Anemia due to stage 4 chronic kidney disease (HCC) Start: 06-19-2021 End: 06-19-2021 Office outpatient visit 25 minutes Ryan Hardin MD Work Phone: [facility] Comment on above: 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, with long-term current use of insulin (Primary Dx); Mixed hyperlipidemia; Vitamin D deficiency Start: 06-19-2021 Refill Anne Marie Banuelos [employer] Work Phone: [facility] Comment on above: Type 2 diabetes mellitus without complic ation, with long-term current use of insulin (HCC) Start: 06-08-2021 End: 06-08-2021 Clinical Support Encounter Ryan Hardin MD Work Phone: [facility] Comment on above: 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, with long-term current use of insulin (Primary Dx) Start: 06-07-2021 End: 06-07-2021 Office outpatient visit 15 minutes Danny Rose MD Work Phone: [facility] Comment on above: Essential hypertension (Primary Dx); Stage 4 chronic kidney disease (HCC) Start: 05-24-2021 End: 05-24-2021 Clinical Support Keely Alvarez LPN [facility] Comment on above: Essential hypertension Start: 05-08-2021 End: 05-08-2021 Office outpatient new 45 minutes Danny Rose MD Work Phone: [facility] Comment on above: Stage 4 chronic kidney disease (HCC) (Pr imary Dx); Chronic gout of foot, unspecified cause, unspecified laterality; Type 2 diabetes 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, with long-term current use of insulin (HCC) Start: 03-17-2021 End: 03-17-2021 Office outpatient visit 25 minutes Kelby Hamilton MD Work Phone: [facility] Comment on above: Acute gout due to renal impairment invol ving multiple sites (Primary Dx); Edema of both lower extremities; Type 2 diabetes 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, with long-term current use of insulin (HCC); Essential hypertension; Class 1 obesity due to excess calories with serious comorbidity and body mass index (BMI) of 30.0 to 30.9 in adult Start: 02-06-2021 Refill Kelby Hamilton MD Work Phone: [facility] Comment on above: Edema of both lower extremities Start: 02-06-2021 End: 02-06-2021 Office outpatient new 30 minutes Enrico Slaughter [employer] Work Phone: [facility] Comment on above: Tinnitus of both ears (Primary Dx) Start: 01-05-2021 Refill Kelby Hamilton MD Work Phone: [facility] Comment on above: Edema of both lower extremities Essential hypertensi on; Edema of both lower extremities Start: 12-31-2020 Refill Kelby Hamilton MD Work Phone: [facility] Comment on above: Essential hypertension Start: 12-23-2020 End: 12-23-2020 Refill Anne Marie Banuelos [employer] Work Phone: [facility] Start: 12-13-2020 End: 12-13-2020 Office outpatient visit 25 minutes Kelby Hamilton MD Work Phone: [facility] Comment on above: Essential hypertension (Primary Dx); Type 2 diabetes 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, with long-term current use of insulin (HCC); Mixed hyperlipidemia; Edema of both lower extremities Start: 12-13-2020 End: 12-13-2020 Orders Only Caro Zee LPN [facility] Start: 12-12-2020 End: 12-12-2020 Office outpatient visit 25 minutes Iris Galeana CNP Work Phone: [facility] [employer] [facility] 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, with long-term current use of insulin (Primary Dx); Essential hypertension; Mixed hyperlipidemia Start: 11-28-2020 End: 11-28-2020 Clinical Support Encounter Ryan Hardin MD Work Phone: [facility] [employer] [facility] [employer] Comment on above: 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, with long-term current use of insulin (Primary Dx) Start: 11-18-2020 End: 11-18-2020 Orders Only Anne Marie Banuelos CNP Work Phone: [facility] Start: 10-07-2020 End: 10-07-2020 Refill Anne Marie Banuelos CNP Work Phone: [facility] Comment on above: Type 2 diabetes mellitus without complic ation, with long-term current use of insulin (HCC) Start: 09-07-2020 End: 09-07-2020 Subsequent hospital visit by physician Suleman Moreno MD Work Phone: [facility] Comment on above: Arrived Start: 09-05-2020 End: 09-05-2020 Refill Anne Marie Banuelos CNP Work Phone: [facility] Comment on above: Essential hypertension Start: 08-08-2020 End: 08-08-2020 Office outpatient visit 15 minutes Iris Galeana Work Phone: [facility] [employer] Comment on above: 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, with long-term current use of insulin (Primary Dx); Mixed hyperlipidemia; Essential hypertension Start: 07-27-2020 End: 07-27-2020 Refill Dantenick Evelio Hamilton Work Phone: [facility] Comment on above: Stage 4 chronic kidney disease (HCC) Start: 07-26-2020 End: 07-26-2020 Clinical Support Luz Maria Ulloa [facility] Comment on above: Essential hypertension (Primary Dx) Start: 07-21-2020 End: 07-21-2020 Office outpatient visit 25 minutes Kelby Hamilton Work Phone: [facility] Comment on above: Type 2 diabetes mellitus without retinop athy (HCC) (Primary Dx); Essential hypertension; Stage 4 chronic kidney disease (HCC); Mixed hyperlipidemia; Class 1 obesity due to excess calories with serious comorbidity and body mass index (BMI) of 30.0 to 30.9 in adult; Well adult health check; At low risk for fall; Acute left-sided thoracic back pain Start: 06-20-2020 End: 06-20-2020 Orders Only Nasrin May Work Phone: [facility] Start: 04-25-2020 End: 04-25-2020 Clinical Support Encounter Ryan Hardin Work Phone: [facility] Comment on above: 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, with long-term current use of insulin (Primary Dx) Start: 03-09-2020 End: 03-09-2020 Office outpatient visit 25 minutes Iris Galeana Work Phone: [facility] Comment on above: 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, with long-term current use of insulin (Primary Dx); Essential hypertension; Mixed hyperlipidemia Start: 02-25-2020 End: 02-25-2020 Clinical Support Encounter Ryan Hardin Work Phone: [facility] Comment on above: Type 2 diabetes mellitus with chronic ki dney disease, with long-term current use of insulin, unspecified CKD stage (Primary Dx) Start: 01-28-2020 End: 01-28-2020 Office outpatient visit 25 minutes Iris Galeana Work Phone: [facility] Comment on above: Type 2 diabetes mellitus with chronic ki dney disease, with long-term current use of insulin, unspecified CKD stage (Primary Dx); Essential hypertension; Mixed hyperlipidemia Start: 01-14-2020 End: 01-14-2020 Clinical Support Encounter Iris Galeana Work Phone: [facility] Comment on above: Type 2 diabetes mellitus with chronic ki dney disease, with long-term current use of insulin, unspecified CKD stage (Primary Dx) Start: 01-14-2020 End: 01-14-2020 Office outpatient new 30 minutes Iris Galeana Work Phone: [facility] Comment on above: Type 2 diabetes mellitus with chronic ki dney disease, with long-term current use of insulin, unspecified CKD stage (Primary Dx); Essential hypertension; Mixed hyperlipidemia Start: 01-13-2020 End: 01-13-2020 Subsequent hospital visit by physician Suleman Moreno Work Phone: [facility] Comment on above: Renal cell carcinoma, unspecified latera lity (HCC) Start: 01-08-2019 End: 01-08-2019 Office outpatient visit 15 minutes Nasim Gaspar Work Phone: [facility] Comment on above: Personal history of renal cancer (Primar y Dx) Start: 12-04-2018 End: 12-05-[address] [facility] Start: 12-04-2018 End: 12-04-2018 Subsequent hospital visit by physician Nasim Gaspar Work Phone: [facility] Comment on above: Personal history of renal cancer Start: 12-03-2018 End: 12-03-2018 Subsequent hospital visit by physician Kelby Hamilton Work Phone: [facility] Comment on above: Other chest pain Arrived Start: 11-17-2018 End: 11-17-2018 Subsequent hospital visit by physician Kelby Hamilton Work Phone: [facility] Comment on above: Chest pain, unspecified type Start: 05-08-2018 End: 05-08-2018 Emergency department patient visit Dion Gaming Facility:[place] Start: 05-01-2018 Patient encounter procedure Kelby Hamilton Facility:[place] Start: 05-01-2018 End: 05-01-2018 Patient encounter procedure Kelby Medranoammyivory Work Phone: [facility] Start: 04-09-2018 End: 04-09-2018 Postop follow up visit related to original px Nasim Gaspar Work Phone: [facility] Comment on above: History of malignant neoplasm of kidney (Primary Dx) Start: 03-26-2018 End: 03-27-[address] [facility] Start: 02-27-2018 End: 02-28-[address] [facility] Start: 01-09-2018 Patient encounter procedure Kelby Hamilton Facility:[place] Start: 01-09-2018 End: 01-09-2018 Patient encounter Kelby Hamilton Work Phone: [facility] Start: 12-27-2017 End: 12-29-2017 Evaluation and management of inpatient Kelby Hamilton Facility:[place] Start: 12-05-2017 End: 12-05-2017 Patient encounter procedure Chris Stovall Facility:[place] Procedures Date Procedure Procedure Detail Performing Clinician Start: 09-29-2024 Follow-up visit Follow-up SIRISHA BERRY Start: 06-23-2024 Radiologic exam ches t 2 views Cecelia Olivia MD Work Phone: Start: 06-23-2024 Antibody screen KIZZYCARLEEN ANALIAIVORY Comment on above: Order Comment: Speci men Type: BLOOD SPECIMENOrdering Facility: [facility] Address: [address] [place] [address] Performed By: #### T SCR ####CC MAIN BLOOD BANKCLIA [id number] [place] [id number] [place] Start: 06-23-2024 Ct abdomen & pelvis w/o contrast material Tyra Esposito APRN.[employer] Work Phone: Start: 01-08-2024 Lipid 1996 panel - S celestina or Plasma [facility] Work Phone: Start: 06-18-2023 Continuous glucose monitoring analysis i&r Ryan Hardin MD Work Phone: Start: 03-26-2023 Fluoroscopic guidance Nisha Ford Work Phone: Start: 03-26-2023 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 Chris Ford Work Phone: Start: 01-02-2023 3 comp foot exam completed Danny Rose MD Work Phone: Start: 01-02-2023 Adult depression scr eening assessment Danny Rose MD Work Phone: Start: 04-19-2022 Ophthalmic examinati on and evaluation Yan Campbell MD Work Phone: Start: 04-16-2022 Basic metabolic pane l calcium total Yan Campbell MD Work Phone: Start: 01-31-2022 Continuous glucose monitoring analysis i&r Ryan Hardin MD Work Phone: Start: 01-26-2022 Microalbumin [Mass/v olume] in Urine by Test strip Yan Campbell MD Work Phone: Start: 10-26-2021 Hemoglobin glycosylated a1c Danny oRse MD Work Phone: Start: 10-18-2021 Colonoscopy Danny bazzi MD Work Phone: Start: 10-06-2021 End: 10-06-2021 Renal function panel Meenakshi Rider CN P Work Phone: Start: 09-01-2021 Blood count hematocrit Meenakshi Rider CNP Work Phone: Start: 08-25-2021 Blood count hematocrit Meenakshi Rider CNP Work Phone: Start: 08-18-2021 End: 08-18-2021 Basic metabolic panel calcium total Meenakshi Rider CNP Work Phone: Start: 07-03-2021 Microalbumin [Mass/v olume] in Urine by Test strip Caro Raymond RN Start: 06-19-2021 Continuous glucose monitoring analysis i&r Ryan Hardin MD Work Phone: Start: 05-08-2021 Adult depression scr eening assessment Danny Rose MD Work Phone: Start: 03-17-2021 3 comp foot exam completed Kelby Hamilton MD Work Phone: Start: 03-15-2021 Microalbumin [Mass/v olume] in Urine by Test strip Kelby Hamilton MD Work Phone: Start: 12-12-2020 Continuous glucose monitoring analysis i&r Iris Galeana [employer] Work Phone: Start: 08-24-2020 Mammography Kelby roman MD Work Phone: Start: 07-25-2020 Lipid 1996 panel - S celestina or Plasma [facility] Nurse Start: 07-21-2020 Adult depression scr eening assessment Kelby Hamilton Start: 03-09-2020 Glucose measurement by monitoring device Irisnicole Burgesstie Work Phone: Start: 01-28-2020 Glucose measurement by monitoring device Iris Burgesstie Work Phone: Start: 01-13-2020 Creatinine [Mass/vol ume] in Blood Suleman Moreno Work Phone: Start: 12-04-2018 Creatinine [Mass/vol ume] in Blood Nasim Gaspar Work Phone: Start: 12-03-2018 Myocardial spect sin gle study at rest or stress Kelby Hamilton Work Phone: Start: 11-17-2018 Standard chest X-ray Kizzy Medranoammyivory Work Phone: Plan of Treatment Date Care Activity Detail Author Start: 10-19-2031 Screening for malignant neoplasm of colon [facility] Start: 01-07-2029 Lipid panel Lipid Screening [facility] Start: 01-07-2027 Diabetes Screening Diabetes Screening [facility] Start: 11-12-2026 RSV Vaccine (1 - 1-dose 75+ series) RSV Vaccine (1 - 1-dose 75+ series) [facility] Start: 10-18-2026 Screening for malignant neoplasm of colon [facility] Start: 09-29-2025 Diabetic foot examination DIABETIC FOOT EXAM [facility] Start: 07-25-2025 Fasting lipid profile LIPID SCREENING [facility] Start: 07-13-2025 COVID-19 Vaccine ( season) COVID-19 Vaccine () [facility] Comment on above: Postponed from 01/12/2024 (Treatment Not Available) Start: 05-28-2025 Diabetic foot examination DIABETIC FOOT EXAM [facility] Start: 04-01-2025 End: 04-01-2025 Patient encounter procedure 04/01/2025 1:00 PM EST Office Visit [facility] [address] [place] [address] Kasie Carrero MD [address] [place] [address] [facility] Start: 02-02-2025 End: 02-02-2025 Patient encounter procedure 02/02/2025 11:00 AM EDT Office Visit [address] [phone] Sirisha Berry, [employer] [address] [place] [address] [facility] Start: 01-28-2025 End: 07-28-2025 US Thyroid gland US Thyroid Only Imaging Routine Thyroid nodule Expected: 01/28/2025, Expires: 07/28/2025 [facility] Work Phone: Comment on above: Expected: 01/28/2025, Expires: Start: 01-15-2025 Glaucoma screening Diabetic Eye Exam [facility] Start: 01-11-2025 Influenza vaccination Influenza Vaccine (#1) [facility] Start: 01-07-2025 Administration of herpes zoster vaccine Zoster Vaccines (1 of 2) [facility] Comment on above: Postponed from 11/12/2001 (Patient Refus ed) Start: 01-07-2025 Hepatitis B surface antibody level LDL Cholesterol [facility] Start: 01-07-2025 Medicare Wellness Visit Medicare Wellness Visit [facility] Start: 01-07-2025 Pneumococcal Vaccine: Age 50+ (1 of 2 - PCV) Pneumococcal Vaccine: Age 50+ (1 of 2 - PCV) [facility] Comment on above: Postponed from 11/12/1970 (Patient Refus ed) Start: 01-07-2025 Pneumococcal Vaccine: Age 65+ (1 of 2 - PCV) Pneumococcal Vaccine: Age 65+ (1 of 2 - PCV) [facility] Comment on above: Postponed from 11/12/1957 (Patient Refus ed) Start: 01-05-2025 Depression screening using PHQ-9 (Patient Health Questionnaire 9) score Depression Screening/Follow-Up (PHQ-2/9) [facility] Start: 01-05-2025 Fall risk assessment Falls Risk Assessment [facility] Start: 11-07-2024 Hemoglobin A1c measurement HBA1C TEST [facility] Start: 09-29-2024 End: 09-29-2024 Patient encounter procedure 09/29/2024 11:00 AM EDT Office Visit [facility] [address] [id number] Sirisha Berry, [employer] [address] [place] [address] [facility] Start: 08-14-2024 End: 08-14-2024 Patient encounter procedure [facility] Comment on above: Pre-operative cardiovascular examination [Z01.810]; Pre-transplant evaluation for kidney transplant [Z01.818] Start: 08-03-2024 eGFR Diabetes eGFR Diabetes [facility] Start: 08-03-2024 Urine screening for protein eGFR Diabetes [facility] Start: 07-13-2024 COVID-19 Vaccine () COVID-19 Vaccine () [facility] Comment on above: Postponed from 01/11/2023 (Treatment Not Available) Start: 07-10-2024 Hemoglobin A1c measurement [facility] Start: 07-09-2024 End: 07-09-2024 Patient encounter procedure 07/09/2024 10:40 AM EST Office Visit [facility] [address] [place] [id number] Danny Rose MD [address] [facility] [place] [address] [facility] Start: 06-23-2024 End: 06-23-2024 ambulatory 06/23/2024 4:15 PM EST Results Only [place] [address] [address] [place] [address] Pre-transplant evaluation for kidney transplant [Z01.818] [place] [address] [address] Comment on above: Pre-transplant evaluation for kidney tra nsplant [Z01.818] Start: 06-23-2024 End: 09-22-2024 BLOOD TB SCREEN [facility] Comment on above: Expected: 06/23/2024, Expires: Start: 06-23-2024 End: 09-22-2024 Chronic hepatitis differentiation between hepatitis B and C virus panel - Serum or Plasma [facility] Comment on above: Expected: 06/23/2024 (Approximate), Expi res: 09/22/2024 Start: 06-23-2024 End: 09-22-2024 Comprehensive metabolic 2000 panel - Serum or Plasma [facility] Comment on above: Expected: 06/23/2024 (Approximate), Expi res: 09/22/2024 Start: 06-23-2024 End: 09-22-2024 Cytomegalovirus IgG Ab [Units/volume] in Serum or Plasma [facility] Comment on above: Expected: 06/23/2024 (Approximate), Expi res: 09/22/2024 Start: 06-23-2024 End: 09-22-2024 Ronna Rojas virus capsid IgG Ab [Units/volume] in Serum [facility] Comment on above: Expected: 06/23/2024 (Approximate), Expi res: 09/22/2024 Start: 06-23-2024 End: 09-22-2024 HEPATITIS A ANTIBODY, IGG [facility] Work Phone: Comment on above: Expected: 06/23/2024, Expires: Start: 06-23-2024 End: 09-22-2024 Hepatitis C virus RNA [Units/volume] (viral load) in Serum or Plasma by NADEEM with probe detection [facility] Comment on above: Expected: 06/23/2024 (Approximate), Expi res: 09/22/2024 Start: 06-23-2024 End: 09-22-2024 HIV 1+2 Ab [Presence] in Serum or Plasma by Immunoassay [facility] Comment on above: Expected: 06/23/2024, Expires: Start: 06-23-2024 End: 09-22-2024 Parathyrin.intact [Mass/volume] in Serum or Plasma [facility] Comment on above: Expected: 06/23/2024 (Approximate), Expi res: 09/22/2024 Start: 06-23-2024 End: 09-22-2024 Phosphate [Mass/volume] in Serum or Plasma [facility] [facility] Comment on above: Expected: 06/23/2024 (Approximate), Expi res: 09/22/2024 Start: 06-23-2024 End: 09-22-2024 RUBEOLA (MEASLES)IGG [facility] Comment on above: Expected: 06/23/2024, Expires: Start: 06-23-2024 End: 09-22-2024 STRONGYLOIDES IGG BL [facility] Comment on above: Expected: 06/23/2024, Expires: Start: 06-23-2024 End: 09-22-2024 SYPHILIS TREPONEMAL W/REFLEX [facility] Comment on above: Expected: 06/23/2024, Expires: Start: 06-23-2024 End: 09-22-2024 TRANSPLANT CONFIRM ABO/RH [facility] Comment on above: Expected: 06/23/2024 (Approximate), Expi res: 09/22/2024 Start: 06-23-2024 End: 09-22-2024 TYPE + SCREEN [facility] Comment on above: Expected: 06/23/2024 (Approximate), Expi res: 09/22/2024 Start: 06-23-2024 End: 09-22-2024 VARICELLA ZOSTER IGG [facility] Comment on above: Expected: 06/23/2024 (Approximate), Expi res: 09/22/2024 Start: 06-23-2024 End: 06-23-2024 Nutrition therapy 06/23/2024 10:30 AM EST Education Nutrition Therapy [address] [address] Justin Maier, RD [address] [place] [address] Pre-transplant evaluation for kidney transplant [Z01.818] Nutrition Therapy Comment on above: Pre-transplant evaluation for kidney tra nsplant [Z01.818] Start: 06-23-2024 End: 06-23-2024 Patient encounter procedure Transplant C enter Comment on above: Pre-transplant evaluation for kidney tra nsplant [Z01.818] Chronic renal failur e, unspecified CKD stage [N18.9] Arrived Start: 05-13-2024 Advance Directive Discussion Advance Directive Discussion Cl [facility] Start: 02-18-2024 End: 02-18-2024 Patient encounter procedure 02/18/2024 11:00 AM EDT Office Visit [facility] [address] [place] [address] Desiree Jacobo, [employer] [address] [place] [address] [facility] Start: 01-23-2024 End: 01-23-2024 ambulatory 01/23/2024 10:45 AM EDT Evaluation [facility] [address] [place] [address] Danny Rose MD [address] [place] [address] Cristino Tenorio, PT Discharge Disposition: Home [facility] Start: 01-12-2024 Covid-19 Vaccine ( season) Covid-19 Vaccine () [facility] Start: 01-12-2024 COVID-19 Vaccine ( season) COVID-19 Vaccine () [facility] Start: 01-12-2024 COVID-19 Vaccine () COVID-19 Vaccine () [facility] Start: 01-12-2024 Influenza vaccination INFLUENZA VACCINE (#1) [facility] Start: 01-08-2024 End: 01-08-2024 Patient encounter procedure 01/08/2024 2:00 PM EDT Office Visit [place] [address] [place] [address] Danny Rose MD [address] [place] [address] [facility] Start: 01-07-2024 End: 01-07-2024 Patient encounter procedure 01/07/2024 10:00 AM EDT Office Visit [facility] Orthopedics and Sports Medicine [facility] [place] [address] Danny Rose MD [address] [place] [address] Desiree Jacobo CNP [facility] [place] [address] [facility] Start: 01-03-2024 Depression screening using PHQ-9 (Patient Health Questionnaire 9) score [facility] Start: 01-03-2024 Diabetic foot examination [facility] Start: 01-03-2024 Fall risk assessment Falls Risk Assessment [facility] Start: 01-03-2024 History and physical examination, annual for health maintenance Wellness Visit [facility] Start: 12-14-2023 Hemoglobin A1c measurement [facility] Start: 10-23-2023 End: 10-23-2023 Patient encounter procedure 10/23/2023 11:00 AM EDT Office Visit [facility] [address] [address] Ryan Hardin MD [address] [place] [address] [facility] Start: 09-01-2023 End: 06-18-2024 C-PEPTIDE C-PEPTIDE Lab Routine Type 2 diabetes mellitus with chronic kidney disease on chronic dialysis, with long-term current use of insulin Expected: 09/01/2023 (Approximate), Expires: 06/18/2024 [facility] Comment on above: Expected: 09/01/2023 (Approximate), Expi res: 06/18/2024 Start: 09-01-2023 End: 06-18-2024 CBC,PLATELETS CBC,PLATELETS Lab Routine Type 2 diabetes mellitus with chronic kidney disease on chronic dialysis, with long-term current use of insulin Expected: 09/01/2023 (Approximate), Expires: 06/18/2024 [facility] Comment on above: Expected: 09/01/2023 (Approximate), Expi res: 06/18/2024 Start: 09-01-2023 End: 06-18-2024 Comprehensive metabolic 2000 panel - Serum or Plasma COMPREHENSIVE METABOLIC PANEL Lab Routine Type 2 diabetes mellitus with chronic kidney disease on chronic dialysis, with long-term current use of insulin Expected: 09/01/2023 (Approximate), Expires: 06/18/2024 [facility] Comment on above: Expected: 09/01/2023 (Approximate), Expi res: 06/18/2024 Start: 09-01-2023 End: 06-18-2024 Hemoglobin A1c/Hemoglobin.total in Blood HEMOGLOBIN A1C Lab Routine Type 2 diabetes mellitus with chronic kidney disease on chronic dialysis, with long-term current use of insulin Expected: 09/01/2023 (Approximate), Expires: 06/18/2024 [facility] Comment on above: Expected: 09/01/2023 (Approximate), Expi res: 06/18/2024 Start: 07-10-2023 End: 07-10-2023 Patient encounter procedure 07/10/2023 2:00 PM EST Office Visit [facility] [address] [facility] [place] [place] [address] Danny Rose MD [address] [facility] [place] [address] [facility] Start: 06-25-2023 End: 06-25-2023 Patient encounter procedure 06/25/2023 2:00 PM EST Office Visit [facility] Medication [address] [address] [facility] Start: 06-18-2023 End: 06-18-2023 Patient encounter procedure 06/18/2023 2:00 PM EST Office Visit [facility] Endocrinology [address] [place] [address] Ryan Hardin MD [address] [place] [address] [facility] Start: 06-13-2023 Hemoglobin A1c measurement A1C [facility] Start: 06-05-2023 End: 06-05-2023 Clinical Support Encounter 06/05/2023 2:00 PM EST Clinical Support Encounter [facility] Endocrinology [address] [place] [address] [facility] Start: 05-13-2023 Advance Directive Discussion Advance Directive Discussion [facility] Start: 04-19-2023 Glaucoma screening [facility] Start: 03-27-2023 Patient discharge [facility] Start: 03-27-2023 Continuous pulse oximetry [facility] Start: 03-26-2023 Following clinical pathway protocol [facility] Start: 03-26-2023 Ambulation without limitation [facility] Start: 03-26-2023 Assessment of risk of venous thromboembolism [facility] Start: 03-26-2023 Care regimes management [facility] Start: 03-26-2023 Insertion of catheter into peripheral vein [facility] Start: 03-26-2023 Measuring intake and output [facility] Start: 03-26-2023 Notification of physician [facility] Start: 03-26-2023 Oxygen therapy [facility] Start: 03-26-2023 Providing care according to standard [facility] Start: 03-26-2023 Vascular disease risk assessment [facility] Start: 03-26-2023 [facility] Start: 03-26-2023 Admission procedure [facility] Start: 02-22-2023 End: 02-22-2023 Patient encounter procedure [facility] Start: 01-26-2023 Hepatitis B screening Urine Albumin:Creatinine Ratio [facility] Start: 01-26-2023 Urine screening for protein Urine Microalbumin [facility] Start: 01-11-2023 COVID-19 Vaccine ( season) COVID-19 Vaccine () [facility] Start: 01-11-2023 Influenza vaccination Sequential Influenza Vaccine (#1) [facility] Start: 01-02-2023 End: 01-02-2023 Patient encounter procedure [facility] Start: 12-27-2022 End: 12-27-2022 ambulatory 12/27/2022 4:00 PM EDT Treatment [facility] [address] [place] [phone] Yan Campbell MD [address] [place] [address] Monica Kellogg OT [facility] Start: 12-25-2022 End: 12-25-2022 ambulatory 12/25/2022 4:00 PM EDT Treatment [facility] [address] [place] [phone] Yan Campbell MD [address] [place] [address] Monica Kellogg OT Discharge Disposition: [facility] Start: 12-21-2022 End: 12-21-2022 ambulatory 12/21/2022 4:45 PM EDT Treatment [facility] [address] [place] [phone] Yan Campbell MD [address] [place] [phone] Monica Kellogg OT Discharge Disposition: [facility] Start: 12-20-2022 End: 12-20-2022 ambulatory 12/20/2022 4:00 PM EDT Treatment [facility] [address] [place] [phone] Yan Campbell MD [address] [place] [phone] Monica Kellogg, HANNAH [facility] Start: 12-18-2022 End: 12-18-2022 ambulatory 12/18/2022 4:00 PM EDT Treatment [facility] [address] [place] [phone] Yan Campbell MD [address] [place] [address] Monica Kellogg, HANNAH [facility] Start: 12-17-2022 End: 12-17-2022 ambulatory 12/17/2022 4:45 PM EDT Treatment [facility] [address] [place] [phone] Yan Campbell MD [address] [place] [address] Gris Quintero COTA/Rebeca Discharge Disposition: [facility] Start: 12-13-2022 End: 12-13-2022 ambulatory 12/13/2022 3:15 PM EDT Treatment [facility] [address] [place] [phone] Yan Campbell MD [address] [place] [address] Monica Kellogg OT [facility] Start: 12-11-2022 End: 12-11-2022 ambulatory 12/11/2022 3:15 PM EDT Treatment [facility] [address] [place] [phone] Yan Campbell MD [address] [place] [address] Monica Kellogg OT [facility] Start: 12-03-2022 Hemoglobin A1c measurement A1C [facility] Start: 10-15-2022 End: 10-15-2022 Patient encounter procedure 10/15/2022 Office Visit Endocrinology, Diabetes & Metabolism Ryan Hardin MD [address] [place] [address] [facility] Start: 10-05-2022 End: 10-05-2022 ambulatory 10/05/2022 1:00 PM EDT Treatment [facility] [address] [place] [phone] Yan Campbell MD [address] [place] [address] Rose Foote OT [facility] Start: 10-01-2022 End: 10-01-2022 ambulatory 10/01/2022 1:00 PM EDT Treatment [facility] [address] [place] [phone] Yan Campbell MD [address] [place] [address] Gris Quintero COTA/Rebeca [facility] Start: 09-28-2022 End: 09-28-2022 ambulatory 09/28/2022 1:00 PM EDT Treatment [facility] [address] [place] [phone] Yan Campbell MD [address] [place] [phone] Rose Foote, OT [facility] Start: 09-27-2022 End: 09-27-2022 ambulatory 09/27/2022 4:00 PM EDT Treatment [facility] [address] [place] [phone] Yan Campbell MD [address] [place] [phone] Chrissy Kuhn OTA Discharge Disposition: Home [facility] Start: 09-24-2022 End: 09-24-2022 ambulatory 09/24/2022 1:00 PM EDT Treatment [facility] [address] [place] [phone] Yan Campbell MD [address] [place] [phone] Rose Foote, OT [facility] Start: 09-21-2022 End: 09-21-2022 ambulatory 09/21/2022 1:00 PM EDT Treatment [facility] [address] [place] [phone] Yan Campbell MD [address] [place] [address] Rose Foote, OT [facility] Start: 09-17-2022 End: 09-17-2022 ambulatory 09/17/2022 1:00 PM EDT Treatment [facility] [address] [place] [phone] Yan Campbell MD [address] [place] [address] Gris Quintero COTA/Rebeca [facility] Start: 09-14-2022 End: 09-14-2022 ambulatory 09/14/2022 1:00 PM EDT Treatment [facility] [address] [place] [phone] Yan Campbell MD [address] [place] [address] Chrissy Kuhn OTA [facility] Start: 09-13-2022 End: 09-13-2022 ambulatory 09/13/2022 1:45 PM EDT Treatment [facility] [address] [place] [phone] Yan Campbell MD [address] [place] [address] Chrissy Kuhn OTA Discharge Disposition: Home [facility] Start: 09-10-2022 End: 09-10-2022 ambulatory 09/10/2022 1:00 PM EDT Treatment [facility] [address] [place] [phone] Yan Campbell MD [address] [place] [address] Gris Quintero COTA/Rebeca [facility] Start: 09-06-2022 End: 09-06-2022 ambulatory 09/06/2022 3:15 PM EDT Treatment [facility] [address] [place] [phone] Yan Campbell MD [address] [place] [address] [facility] Start: 09-04-2022 End: 09-04-2022 ambulatory 09/04/2022 4:00 PM EDT Treatment [facility] [address] [place] [phone] Yan Campbell MD [address] [place] [address] [facility] Start: 08-26-2022 End: 06-12-2023 CBC,PLATELETS CBC,PLATELETS Lab Routine Type 2 diabetes mellitus with chronic kidney disease on chronic dialysis, with long-term current use of insulin Expected: 08/26/2022 (Approximate), Expires: 06/12/2023 [facility] Comment on above: Expected: 08/26/2022 (Approximate), Expi res: 06/12/2023 Start: 08-26-2022 End: 06-12-2023 Comprehensive metabolic 2000 panel - Serum or Plasma COMPREHENSIVE METABOLIC PANEL Lab Routine Type 2 diabetes mellitus with chronic kidney disease on chronic dialysis, with long-term current use of insulin Expected: 08/26/2022 (Approximate), Expires: 06/12/2023 [facility] Comment on above: Expected: 08/26/2022 (Approximate), Expi res: 06/12/2023 Start: 08-26-2022 End: 06-12-2023 Hemoglobin A1c/Hemoglobin.total in Blood HEMOGLOBIN A1C Lab Routine Type 2 diabetes mellitus with chronic kidney disease on chronic dialysis, with long-term current use of insulin Expected: 08/26/2022 (Approximate), Expires: 06/12/2023 [facility] Comment on above: Expected: 08/26/2022 (Approximate), Expi res: 06/12/2023 Start: 08-26-2022 End: 06-12-2023 LIPID PANEL W CALCULATED LDL LIPID PANEL W CALCULATED LDL Lab Routine Type 2 diabetes mellitus with chronic kidney disease on chronic dialysis, with long-term current use of insulin Expected: 08/26/2022, Expires: 06/12/2023 [facility] Comment on above: Expected: 08/26/2022, Expires: Start: 08-26-2022 End: 06-12-2023 TSH W/FT4 REFLEX TSH W/FT4 REFLEX Lab Routine Type 2 diabetes mellitus with chronic kidney disease on chronic dialysis, with long-term current use of insulin Expected: 08/26/2022 (Approximate), Expires: 06/12/2023 [facility] Comment on above: Expected: 08/26/2022 (Approximate), Expi res: 06/12/2023 Start: 08-18-2022 Screening for malignant neoplasm of colon [facility] Start: 08-17-2022 End: 08-17-2022 Follow-up encounter 08/17/2022 Follow-Up Cardiology Yan Campbell MD [address] [place] [address] [facility] Start: 07-26-2022 Hemoglobin A1c measurement A1C [facility] Start: 07-26-2022 Urine screening for protein Urine (micro)albumin/creatinine ratio - Diabetes [facility] Start: 07-13-2022 End: 07-13-2022 Follow-up encounter 07/13/2022 Follow-Up Cardiology Yan Campbell MD [address] [place] [address] [facility] Start: 07-04-2022 End: 07-04-2022 Patient encounter procedure 07/04/2022 Office Visit Primary Care Danny Rose MD [facility] [place] [address] [facility] Start: 07-03-2022 Microalbumin measurement, urine, quantitative Urine Microalbumin [facility] Start: 07-03-2022 End: 07-03-2022 Follow-up encounter 07/03/2022 Follow-Up Cardiology [place] CNP [address] [place] [address] [facility] Start: 07-03-2022 End: 07-03-2022 Patient encounter procedure [facility] Start: 06-28-2022 End: 06-28-2022 Patient encounter procedure [facility] Start: 06-20-2022 End: 06-20-2022 Patient encounter procedure 06/20/2022 Office Visit Cardiology Chriss Wyman MD [address] [address] [facility] Start: 06-06-2022 End: 06-06-2022 Patient encounter procedure 06/06/2022 Office Visit Endocrinology, Diabetes & Metabolism Ryan Hardin MD [address] [place] [address] [facility] Endocrinology Start: 06-01-2022 End: 06-01-2022 Patient encounter procedure [facility] Start: 05-30-2022 End: 05-30-2022 Patient encounter procedure 05/30/2022 Appointment Radiology Danny Rose MD [address] [place] [address] [facility] CT Scan Start: 05-16-2022 End: 05-16-2022 Admission to same day surgery center 05/16/2022 Surgery Yan Campbell MD [address] [place] [address] LEFT UPPER EXTREMITY ARTERIOVENOUS GRAFT INSERTION [facility] Periop Comment on above: LEFT UPPER EXTREMITY ARTERIOVENOUS GRAFT INSERTION Start: 05-16-2022 Subsequent hospital visit by physician 05/16/2022 Hospital Encounter Yan Campbell MD [address] [place] [address] [facility] Per[facility] Start: 05-16-2022 End: 05-16-2022 FISTULA ARTERIOVENOUS [facility] Main OR Start: 05-08-2022 Depression screening using PHQ-9 (Patient Health Questionnaire 9) score Depression Screening (PHQ-2/9) [facility] Start: 04-30-2022 End: 04-30-2022 Patient encounter procedure 04/30/2022 Appointment Radiology Danny Rose MD [address] [place] [address] [facility] Ultrasound Start: 04-27-2022 Hemoglobin A1c measurement A1C [facility] Start: 04-23-2022 End: 04-23-2022 Admission to same day surgery center 04/23/2022 Surgery Yan Campbell MD [address] [place] [address] LEFT BRACHIOBASILIC FISTULA CREATION [facility] Per[facility] Comment on above: LEFT BRACHIOBASILIC FISTULA CREATION Start: 04-23-2022 End: 04-23-2022 FISTULA ARTERIOVENOUS FISTULA ARTERIOVENOUS ESRD (end stage renal disease) ([facility]) 04/23/2022 7:20 AM EST [facility] Main OR Start: 04-23-2022 Subsequent hospital visit by physician 04/23/2022 Hospital Encounter Yan Campbell MD [address] [place] [address] [facility] Start: 04-16-2022 End: 04-13-2023 Basic metabolic 2000 panel - Serum or Plasma Basic metabolic panel Lab Routine ESRD (end stage renal disease) ([facility]) Expected: 04/16/2022, Expires: 04/13/2023 [facility] Comment on above: Expected: 04/16/2022, Expires: Start: 04-16-2022 End: 04-13-2023 Complete blood count with white cell differential, manual CBC and differential Lab Routine ESRD (end stage renal disease) ([facility]) Expected: 04/16/2022, Expires: 04/13/2023 [facility] Comment on above: Expected: 04/16/2022, Expires: 3 Start: 04-16-2022 End: 04-13-2023 INR in Platelet poor plasma by Coagulation assay PT/INR Lab Routine ESRD (end stage renal disease) ([facility]) Expected: 04/16/2022, Expires: 04/13/2023 [facility] Work Phone: Comment on above: Expected: 04/16/2022, Expires: 3 Start: 04-16-2022 End: 04-16-2022 Admission to establishment 04/16/2022 Clinical Support Pre-Admission Testing [facility] Preadmission Testing Start: 03-21-2022 Administration of herpes zoster vaccine Zoster Vaccines (1 of 2) [facility] Comment on above: Postponed from 11/12/2001 (Patient Refus ed) Postponed from 11/12 (Patient Refused) Start: 03-21-2022 COVID-19 Vaccine (3 - Pfizer risk 4-dose series) COVID-19 Vaccine (3 - Pfizer risk 4-dose series) [facility] Comment on above: Postponed from 01/14/2021 (Per Other Bes t Practice Guidelines) Start: 03-21-2022 Pneumococcal Vaccine: Age 65+ (1 - PCV) Pneumococcal Vaccine: Age 65+ (1 - PCV) [facility] Comment on above: Postponed from 11/12/1957 (Per Other Bes t Practice Guidelines) Start: 03-21-2022 Pneumococcal Vaccine: Age 65+ (1 of 4 - PCV13) Pneumococcal Vaccine: Age 65+ (1 of 4 - PCV13) [facility] Comment on above: Postponed from 11/12/1957 (Per Other Bes t Practice Guidelines) Start: 03-21-2022 Screening for malignant neoplasm of colon Colorectal Cancer Screening [facility] Comment on above: Postponed from 11/12/2001 (Patient Refus ed) Start: 03-21-2022 Screening for osteoporosis Dexa Scan [facility] Comment on above: Postponed from 1951 (Patient Refus ed) Start: 03-21-2022 Tetanus vaccination Tetanus: Every 10yrs [facility] Comment on above: Postponed from 1951 (Patient Refus ed) Start: 03-17-2022 Diabetic foot examination Foot Exam [facility] Start: 03-17-2022 History and physical examination, annual for health maintenance Wellness Visit [facility] Start: 03-15-2022 Microalbumin measurement, urine, quantitative Urine Microalbumin [facility] Start: 02-19-2022 End: 02-19-2022 Patient encounter procedure 02/19/2022 Office Visit Oncology Meenakshi Rider, [employer] [address] [place] [address] [facility] Start: 02-05-2022 Subsequent hospital visit by physician 02/05/2022 Hospital Encounter Yan Campbell MD [address] [place] [address] [facility] Start: 01-31-2022 End: 01-26-2023 Basic metabolic 2000 panel - Serum or Plasma Basic metabolic panel Lab Routine End stage renal disease (HCC) Expected: 01/31/2022, Expires: 01/26/2023 [facility] Comment on above: Expected: 01/31/2022, Expires: 3 Start: 01-31-2022 End: 01-26-2023 Complete blood count with white cell differential, manual CBC and differential Lab Routine End stage renal disease (HCC) Expected: 01/31/2022, Expires: 01/26/2023 [facility] Comment on above: Expected: 01/31/2022, Expires: 3 Start: 01-31-2022 End: 01-26-2023 INR in Platelet poor plasma by Coagulation assay PT/INR Lab Routine End stage renal disease (HCC) Expected: 01/31/2022, Expires: 01/26/2023 [facility] Work Phone: Comment on above: Expected: 01/31/2022, Expires: 3 Start: 01-31-2022 End: 01-31-2022 Patient encounter procedure 01/31/2022 Office Visit Endocrinology, Diabetes & Metabolism Ryan Hardin MD [address] [place] [address] [facility] Endocrinology Start: 01-31-2022 End: 01-31-2022 Admission to establishment 01/31/2022 Clinical Support Pre-Admission Testing Yan Campbell MD [address] [place] [address] [facility] [facility] Start: 01-25-2022 End: 01-25-2022 Patient encounter procedure 01/25/2022 Office Visit Primary Care Danny Rose MD [address] [place] [phone] [facility] Primary Care [facility] Start: 01-17-2022 End: 01-17-2023 6-minute walk test EXERCISE-6 MIN. WALK PFT Routine Pre-transplant evaluation for kidney transplant Expected: 01/17/2022, Expires: 01/17/2023 [facility] Comment on above: Expected: 01/17/2022, Expires: 3 Start: 01-17-2022 End: 01-17-2023 ABO/RH(D) TYPING ABO/RH(D) TYPING Blood Bank Routine Pre-transplant evaluation for kidney transplant Expected: 01/17/2022, Expires: 01/17/2023 [facility] Comment on above: Expected: 01/17/2022, Expires: 3 Start: 01-17-2022 End: 01-17-2023 Albumin [Mass/volume] in Serum or Plasma ALBUMIN Lab Routine Pre-transplant evaluation for kidney transplant Expected: 01/17/2022, Expires: 01/17/2023 [facility] Comment on above: Expected: 01/17/2022, Expires: 3 Start: 01-17-2022 End: 01-17-2023 ALCOHOL (ETHANOL),BLOOD ALCOHOL (ETHANOL),BLOOD Lab Routine Pre-transplant evaluation for kidney transplant Expected: 01/17/2022, Expires: 01/17/2023 [facility] Comment on above: Expected: 01/17/2022, Expires: 3 Start: 01-17-2022 End: 01-17-2023 ALP ALT AST ALP ALT AST Lab Routine Pre-transplant evaluation for kidney transplant Expected: 01/17/2022, Expires: 01/17/2023 [facility] Comment on above: Expected: 01/17/2022, Expires: 3 Start: 01-17-2022 End: 01-17-2023 ARTERIAL BLOOD GAS, PULMONARY LAB OBTAINED ARTERIAL BLOOD GAS, PULMONARY LAB OBTAINED PFT Routine Pre-transplant evaluation for kidney transplant Expected: 01/17/2022, Expires: 01/17/2023 [facility] Comment on above: Expected: 01/17/2022, Expires: 3 Start: 01-17-2022 End: 01-17-2023 Bilirubin.total [Mass/volume] in Serum or Plasma BILIRUBIN TOTAL Lab Routine Pre-transplant evaluation for kidney transplant Expected: 01/17/2022, Expires: 01/17/2023 [facility] Comment on above: Expected: 01/17/2022, Expires: 3 Start: 01-17-2022 End: 01-17-2023 C-PEPTIDE C-PEPTIDE Lab Routine Pre-transplant evaluation for kidney transplant Expected: 01/17/2022, Expires: 01/17/2023 [facility] Comment on above: Expected: 01/17/2022, Expires: 3 Start: 01-17-2022 End: 01-17-2023 Calcium [Mass/volume] in Serum or Plasma CALCIUM Lab Routine Pre-transplant evaluation for kidney transplant Expected: 01/17/2022, Expires: 01/17/2023 [facility] Comment on above: Expected: 01/17/2022, Expires: 3 Start: 01-17-2022 End: 01-17-2023 CHEM 7 (LYTES,BUN,CREA,GLUC) CHEM 7 (LYTES,BUN,CREA,GL UC) Lab Routine Abnormal finding of blood chemistry, unspecified End stage renal disease Encounter for screening for other viral diseases Pre-transplant evaluation for kidney transplant Expected: 01/17/2022, Expires: 01/17/2023 [facility] Comment on above: Expected: 01/17/2022, Expires: 3 Start: 01-17-2022 End: 01-17-2023 CMV IGG AB CMV IGG AB Lab Routine Pre-transplant evaluation for kidney transplant Expected: 01/17/2022, Expires: 01/17/2023 [facility] Comment on above: Expected: 01/17/2022, Expires: 3 Start: 01-17-2022 End: 01-17-2023 Complete blood count with white cell differential, automated CBC, EDIF, PLATELET Lab Routine Pre-transplant evaluation for kidney transplant Expected: 01/17/2022, Expires: 01/17/2023 [facility] Comment on above: Expected: 01/17/2022, Expires: 3 Start: 01-17-2022 End: 01-17-2023 CT Abdomen and Pelvis WO contrast CT ABDOMEN/PELVIS WITHOUT CONTRAST Imaging Routine Pre-transplant evaluation for kidney transplant Expected: 01/17/2022, Expires: 01/17/2023 [facility] Comment on above: Expected: 01/17/2022, Expires: 3 Start: 01-17-2022 End: 01-17-2023 EBV VCA IGG AB EBV VCA IGG AB Lab Routine Pre-transplant evaluation for kidney transplant Expected: 01/17/2022, Expires: 01/17/2023 [facility] Comment on above: Expected: 01/17/2022, Expires: 3 Start: 01-17-2022 End: 01-17-2023 ETHANOL (ALCOHOL), URINE ETHANOL (ALCOHOL), URINE Lab Routine Pre-transplant evaluation for kidney transplant Expected: 01/17/2022, Expires: 01/17/2023 [facility] Comment on above: Expected: 01/17/2022, Expires: 3 Start: 01-17-2022 End: 01-17-2023 Gamma glutamyl transferase [Enzymatic activity/volume] in Serum or Plasma GGT Lab Routine Abnormal levels of other serum enzymes Pre-transplant evaluation for kidney transplant Expected: 01/17/2022, Expires: 01/17/2023 [facility] Comment on above: Expected: 01/17/2022, Expires: 3 Start: 01-17-2022 End: 01-17-2023 Hemoglobin A1c/Hemoglobin.total in Blood HEMOGLOBIN A1C Lab Routine Abnormal finding of blood chemistry, unspecified End stage renal disease Encounter for screening for other viral diseases Pre-transplant evaluation for kidney transplant Expected: 01/17/2022, Expires: 01/17/2023 [facility] Comment on above: Expected: 01/17/2022, Expires: 3 Start: 01-17-2022 End: 01-17-2023 HEPATITIS B SURFACE ANTIBODY HEPATITIS B SURFACE ANTIB MERCED Lab Routine Encounter for screening for other viral diseases Pre-transplant evaluation for kidney transplant Expected: 01/17/2022, Expires: 01/17/2023 [facility] Comment on above: Expected: 01/17/2022, Expires: 3 Start: 01-17-2022 End: 01-17-2023 HEPATITIS B SURFACE ANTIGEN HEPATITIS B SURFACE ANTIGE N Lab Routine Encounter for screening for other viral diseases Pre-transplant evaluation for kidney transplant Expected: 01/17/2022, Expires: 01/17/2023 [facility] Comment on above: Expected: 01/17/2022, Expires: 3 Start: 01-17-2022 End: 01-17-2023 Hepatitis B virus core IgG+IgM Ab [Presence] in Serum HEP B CORE AB,TOTAL(IGG+IGM) Lab Routine Encounter for screening for other viral diseases Pre-transplant evaluation for kidney transplant Expected: 01/17/2022, Expires: 01/17/2023 [facility] Comment on above: Expected: 01/17/2022, Expires: 3 Start: 01-17-2022 End: 01-17-2023 HEPATITIS C ANTIBODY HEPATITIS C ANTIBODY Lab Routine Pre-transplant evaluation for kidney transplant Expected: 01/17/2022, Expires: 01/17/2023 [facility] Comment on above: Expected: 01/17/2022, Expires: 3 Start: 01-17-2022 End: 01-17-2023 HIV 1+2 Ab+HIV1 p24 Ag [Presence] in Serum or Plasma by Immunoassay HIV 1 AND 2 ANTIBODIES Lab Routine Pre-transplant evaluation for kidney transplant Expected: 01/17/2022, Expires: 01/17/2023 [facility] Comment on above: Expected: 01/17/2022, Expires: 3 Start: 01-17-2022 End: 01-17-2023 HLA TYPING (SOLID ORGAN) HLA TYPING (SOLID ORGAN) Lab Routine Pre-transplant evaluation for kidney transplant Expected: 01/17/2022, Expires: 01/17/2023 [facility] Comment on above: Expected: 01/17/2022, Expires: 3 Start: 01-17-2022 End: 01-17-2023 HSV 1 AND 2 IGG ANTIBODY HSV 1 AND 2 IGG ANTIBODY Lab Routine Pre-transplant evaluation for kidney transplant Expected: 01/17/2022, Expires: 01/17/2023 [facility] Comment on above: Expected: 01/17/2022, Expires: 3 Start: 01-17-2022 End: 01-17-2023 HSV IGM ANTIBODY HSV IGM ANTIBODY Lab Routine Pre-transplant evaluation for kidney transplant Expected: 01/17/2022, Expires: 01/17/2023 [facility] Comment on above: Expected: 01/17/2022, Expires: 3 Start: 01-17-2022 End: 01-17-2023 Magnesium [Mass/volume] in Serum or Plasma MAGNESIUM Lab Routine Pre-transplant evaluation for kidney transplant Expected: 01/17/2022, Expires: 01/17/2023 [facility] Comment on above: Expected: 01/17/2022, Expires: 3 Start: 01-17-2022 End: 01-17-2023 Measurement of respiratory function PFT STANDARD PFT Routine Pre-transplant evaluation for kidney transplant Expected: 01/17/2022, Expires: 01/17/2023 [facility] Comment on above: Expected: 01/17/2022, Expires: 3 Start: 01-17-2022 End: 01-17-2023 Osmolality of Serum or Plasma OSMOLALITY Lab Routine Pre-transplant evaluation for kidney transplant Expected: 01/17/2022, Expires: 01/17/2023 [facility] Comment on above: Expected: 01/17/2022, Expires: 3 Start: 01-17-2022 End: 01-17-2023 PHOSPHATE, INORGANIC PHOSPHATE, INORGANIC Lab Routine Pre-transplant evaluation for kidney transplant Expected: 01/17/2022, Expires: 01/17/2023 [facility] Comment on above: Expected: 01/17/2022, Expires: 3 Start: 01-17-2022 End: 01-17-2023 PRA CLASS (PRE-TRANSPLANT) PRA CLASS (PRE-TRANSPLANT) Lab Routine Pre-transplant evaluation for kidney transplant Expected: 01/17/2022, Expires: 01/17/2023 [facility] Comment on above: Expected: 01/17/2022, Expires: 3 Start: 01-17-2022 End: 01-17-2023 Protein [Mass/volume] in Serum or Plasma PROTEIN TOTAL Lab Routine Pre-transplant evaluation for kidney transplant Expected: 01/17/2022, Expires: 01/17/2023 [facility] Comment on above: Expected: 01/17/2022, Expires: 3 Start: 01-17-2022 End: 01-17-2023 PT,INR,PTT PT,INR,PTT Lab Routine End stage renal disease Encounter for screening for other viral diseases Pre-transplant evaluation for kidney transplant Expected: 01/17/2022, Expires: 01/17/2023 [facility] Comment on above: Expected: 01/17/2022, Expires: 3 Start: 01-17-2022 End: 01-17-2023 PTH INTACT PTH INTACT Lab Routine Pre-transplant evaluation for kidney transplant Expected: 01/17/2022, Expires: 01/17/2023 [facility] Comment on above: Expected: 01/17/2022, Expires: 3 Start: 01-17-2022 End: 01-17-2023 TOXICOLOGY DRUG SCREEN, SERUM TOXICOLOGY DRUG SCREEN, SERUM Lab Routine Encounter for therapeutic drug level monitoring Abnormal finding of blood chemistry, unspecified End stage renal disease Encounter for screening for other viral diseases Pre-transplant evaluation for kidney transplant Expected: 01/17/2022, Expires: 01/17/2023 [facility] Comment on above: Expected: 01/17/2022, Expires: 3 Start: 01-17-2022 End: 01-17-2023 TOXICOLOGY SCREEN URINE - UDRG TOXICOLOGY SCREEN URINE - UDRG Fluids Routine Encounter for therapeutic drug level monitoring Abnormal finding of blood chemistry, unspecified End stage renal disease Encounter for screening for other viral diseases Pre-transplant evaluation for kidney transplant Expected: 01/17/2022, Expires: 01/17/2023 [facility] Comment on above: Expected: 01/17/2022, Expires: 3 Start: 01-17-2022 End: 01-17-2023 TYPE AND SCREEN TYPE AND SCREEN Blood Bank Routine Pre-transplant evaluation for kidney transplant Expected: 01/17/2022, Expires: 01/17/2023 [facility] Comment on above: Expected: 01/17/2022, Expires: 3 Start: 01-17-2022 End: 01-17-2023 Urate [Mass/volume] in Serum or Plasma URIC ACID Lab Routine Pre-transplant evaluation for kidney transplant Expected: 01/17/2022, Expires: 01/17/2023 [facility] Comment on above: Expected: 01/17/2022, Expires: 3 Start: 01-17-2022 End: 01-17-2023 VARICELLA IGG AB (IMM STATUS) VARICELLA IGG AB (IMM STATUS) Lab Routine Pre-transplant evaluation for kidney transplant Expected: 01/17/2022, Expires: 01/17/2023 [facility] Comment on above: Expected: 01/17/2022, Expires: 3 Start: 01-17-2022 End: 01-17-2023 XR Chest PA and Lateral XR CHEST PA AND LATERAL Imaging Routine Pre-transplant evaluation for kidney transplant Expected: 01/17/2022, Expires: 01/17/2023 [facility] Comment on above: Expected: 01/17/2022, Expires: Start: 01-12-2022 End: 01-12-2022 Patient encounter procedure [facility] Start: 01-11-2022 Influenza vaccination [facility] Start: 12-22-2021 End: 12-22-2021 Patient encounter procedure [facility] Start: 12-18-2021 End: 12-18-2021 Patient encounter procedure 12/18/2021 Appointment Cardiology Chriss Wyman MD [address] [address] [facility] Start: 12-15-2021 End: 12-15-2021 Nursing evaluation of patient and report 12/15/2021 Nurse Only Infusion Therapy Meenakshi Rider, [employer] [address] [place] [address] [facility] Start: 12-15-2021 End: 12-15-2021 Patient encounter procedure 12/15/2021 Office Visit Cardiology Chriss Wyman MD [address] [address] [facility] Start: 12-12-2021 Hemoglobin A1c measurement A1C [facility] Start: 11-17-2021 End: 11-17-2021 Nursing evaluation of patient and report 11/17/2021 Nurse Only Infusion Therapy Meenakshi Rider [employer] [address] [place] [address] [facility] Start: 11-14-2021 End: 11-14-2021 Patient encounter procedure 11/14/2021 Office Visit Gastroenterology Chris Stovall MD [address] [place] [address] [facility] Start: 11-10-2021 End: 11-10-2021 Nursing evaluation of patient and report 11/10/2021 Nurse Only Infusion Therapy [facility] Start: 11-09-2021 Influenza vaccination Sequential Influenza Vaccine (#1) [facility] Comment on above: Postponed from 01/11/2021 (Patient Refus ed) Start: 11-03-2021 End: 11-03-2021 Nursing evaluation of patient and report 11/03/2021 Nurse Only Infusion Therapy [facility] Start: 10-27-2021 End: 10-27-2021 Nursing evaluation of patient and report 10/27/2021 Nurse Only Infusion Therapy [facility] Start: 10-25-2021 End: 10-25-2021 Patient encounter procedure 10/25/2021 Office Visit Primary Care Danny Rose MD [facility] Tahira Mccormick [address] [place] [address] [facility] Start: 10-20-2021 End: 10-20-2021 Nursing evaluation of patient and report 10/20/2021 Nurse Only Infusion Therapy [facility] Start: 10-18-2021 End: 10-18-2021 Admission to same day surgery center 10/18/2021 Surgery Chris Stovall MD [facility] [place] [address] COLONOSCOPY [facility] Comment on above: COLONOSCOPY Start: 10-18-2021 End: 10-18-2021 Colonoscopy COLONOSCOPY Iron deficiency anemia, unspecified iron deficiency anemia type Guaiac positive stools 10/18/2021 9:20 AM EDT [facility] Start: 10-18-2021 End: 10-18-2021 Esophagogastroduodenoscopy ESOPHAGOGASTRODUODENOSCOPY Iron deficiency anemia, unspecified iron deficiency anemia type Guaiac positive stools 10/18/2021 9:20 AM EDT [facility] Start: 10-18-2021 Subsequent hospital visit by physician 10/18/2021 Hospital Encounter Chris Stovall MD [address] [place] [address] [facility] Start: 10-17-2021 End: 10-17-2021 Patient encounter procedure 10/17/2021 Office Visit Endocrinology, Diabetes & Metabolism Ryan Hardin MD [address] [place] [address] [facility] Endocr[facility]ology Start: 10-16-2021 End: 10-16-2021 Patient encounter procedure 10/16/2021 Office Visit Oncology Meenakshi Rider, [employer] [address] [place] [address] [facility] Start: 10-13-2021 End: 10-13-2021 Nursing evaluation of patient and report 10/13/2021 Nurse Only Infusion Therapy Meenakshi Rider, [employer] [address] [place] [address] [facility] Start: 10-06-2021 End: 10-06-2021 Nursing evaluation of patient and report 10/06/2021 Nurse Only Infusion Therapy Meenakshi Rider, [employer] [address] [place] [address] [facility] Start: 10-03-2021 End: 10-03-2021 Clinical Support Encounter 10/03/2021 Clinical Support Encounter Endocrinology, Diabetes & Metabolism [facility] Endocr[facility] Start: 10-03-2021 COVID-19 Vaccine (4 - Booster) COVID-19 Vaccine (4 - Booster) [facility] Start: 09-29-2021 End: 09-29-2021 Nursing evaluation of patient and report 09/29/2021 Nurse Only Infusion Therapy Meenakshi Rider, [employer] [address] [place] [address] [facility] Start: 09-28-2021 COVID-19 Vaccine (4 - Booster) COVID-19 Vaccine (4 - Booster) [facility] Start: 09-22-2021 End: 09-22-2021 Nursing evaluation of patient and report 09/22/2021 Nurse Only Infusion Therapy Meenakshi Rider, [employer] [address] [place] [address] [facility] Start: 09-15-2021 End: 09-15-2021 Nursing evaluation of patient and report 09/15/2021 Nurse Only Infusion Therapy Meenakshi Rider, [employer] [address] [place] [address] [facility] Start: 09-14-2021 End: 09-14-2021 Patient encounter procedure 09/14/2021 Office Visit Gastroenterology Meenakshi Rider [employer] [address] [place] [address] Chris Stovall MD [address] [place] [address] [facility] Start: 09-12-2021 Hemoglobin A1c measurement A1C [facility] Start: 09-08-2021 End: 09-08-2021 Nursing evaluation of patient and report 09/08/2021 Nurse Only Infusion Therapy Meenakshi Rider, [employer] [address] [place] [address] [facility] Start: 09-06-2021 End: 09-06-2021 Patient encounter procedure 09/06/2021 Office Visit Primary Care Danny Rose MD [facility] Tahira Mccormick [address] [place] [address] [facility] Start: 09-01-2021 End: 09-01-2021 Nursing evaluation of patient and report 09/01/2021 Nurse Only Infusion Therapy Meenakshi Rider, [employer] [address] [place] [address] [facility] Start: 08-31-2021 COVID-19 Vaccine (4 - Booster) COVID-19 Vaccine (4 - Booster) [facility] Start: 08-31-2021 COVID-19 Vaccine (4 - Mixed Product risk series) COVID-19 Vaccine (4 - Mixed Product risk series) [facility] Start: 08-31-2021 COVID-19 Vaccine (4 - Pfizer series) COVID-19 Vaccine (4 - Pfizer series) [facility] Start: 08-25-2021 End: 08-25-2021 Nursing evaluation of patient and report 08/25/2021 Nurse Only Infusion Therapy Meenakshi Rider, [employer] [address] [place] [address] [facility] Start: 08-24-2021 Screening for malignant neoplasm of breast Mammogram [facility] Start: 08-18-2021 End: 08-18-2021 Nursing evaluation of patient and report 08/18/2021 Nurse Only Infusion Therapy Meenakshi Rider, [employer] [address] [place] [address] [facility] Start: 08-07-2021 End: 06-08-2022 Cont gluc mntr physician/qhp provided equiptment CT CONT GLUC MNTR PHYSICIAN/QHP PROVIDED EQUIPTMENT CT Charge Routine Type 2 diabetes 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, with long-term current use of insulin Expected: 08/07/2021, Expires: 06/08/2022 [facility] Comment on above: Expected: 08/07/2021, Expires: Start: 07-25-2021 Lipid panel LIPIDS [facility] Start: 07-25-2021 LIPIDS LIPIDS [facility] Start: 07-21-2021 Adolescent depression screening assessment Depression Screening (PHQ9) [facility] Start: 07-21-2021 Depression screening using PHQ-9 (Patient Health Questionnaire 9) score [facility] Start: 07-21-2021 Fall risk assessment Falls Risk Assessment [facility] Start: 06-19-2021 End: 06-19-2021 Patient encounter procedure 06/19/2021 Office Visit Endocrinology, Diabetes & Metabolism Ryan Hardin MD [address] [place] [address] [facility] Endocr[facility]ology Start: 06-15-2021 End: 06-15-2021 Patient encounter procedure 06/15/2021 Office Visit Primary Care Kelby Hamilton MD [facility] [place] [address] [facility] Start: 06-15-2021 Hemoglobin A1c measurement A1C [facility] Start: 06-10-2021 Hemoglobin A1c measurement HBA1C TEST [facility] Start: 05-28-2021 Ophthalmic examination and evaluation Ophthalmology Exam [facility] Comment on above: Postponed from 11/12/1961 (Per Other [facility] Practice Guidelines) Start: 05-24-2021 End: 05-24-2021 Clinical Support 05/24/2021 Clinical Support Primary Care [facility] Start: 05-19-2021 COVID-19 VACCINE (3 - Booster for Pfizer series) COVID-19 VACCINE (3 - Booster for Pfizer series) [facility] Start: 05-13-2021 ADVANCE DIRECTIVE DISCUSSION ADVANCE DIRECTIVE DISCUSSION [facility] Start: 05-13-2021 DEPRESSION ASSESSMENT DEPRESSION ASSESSMENT [facility] Start: 05-08-2021 End: 05-08-2021 Patient encounter procedure 05/08/2021 Office Visit Primary Care Danny Rose MD [facility] Tahira Mccormick [address] [place] [address] [facility] Primary [facility] Start: 04-12-2021 End: 04-12-2021 Patient encounter procedure 04/12/2021 Office Visit Primary Care Jennifer Johnson MD [address] [place] [address] [facility] Start: 03-17-2021 End: 03-17-2021 Patient encounter procedure [facility] Start: 03-16-2021 End: 03-16-2021 Patient encounter procedure 03/16/2021 Office Visit Endocrinology, Diabetes & Metabolism Ryan Hardin MD [address] [place] [address] [facility] Endocr[facility]ology Start: 03-02-2021 End: 03-02-2021 Clinical Support Encounter 03/02/2021 Clinical Support Encounter Endocrinology, Diabetes & Metabolism [facility] Start: 02-11-2021 COVID-19 VACCINE (3 - Booster for Pfizer series) COVID-19 VACCINE (3 - Booster for Pfizer series) [facility] Start: 01-27-2021 End: 11-28-2021 Cont gluc mntr physician/qhp provided equiptment CT CONT GLUC MNTR PHYSICIAN/QHP PROVIDED EQUIPTMENT CT Charge Routine Type 2 diabetes 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, with long-term current use of insulin Expected: 01/27/2021, Expires: 11/28/2021 [facility] Comment on above: Expected: 01/27/2021, Expires: Start: 01-25-2021 HbA1c (Bld) [Mass fraction] A1C [facility] Start: 01-25-2021 Hemoglobin A1c measurement [facility] Start: 01-14-2021 COVID-19 Vaccine (3 - Pfizer risk 3-dose series) COVID-19 Vaccine (3 - Pfizer risk 3-dose series) [facility] Start: 01-11-2021 Influenza vaccination [facility] Start: 12-18-2020 COVID-19 Vaccine (2 - Pfizer 2-dose series) COVID-19 Vaccine (2 - Pfizer 2-dose series) [facility] Start: 12-18-2020 COVID-19 Vaccine (2 - Pfizer risk 3-dose series) COVID-19 Vaccine (2 - Pfizer risk 3-dose series) [facility] Start: 12-13-2020 End: 12-13-2020 Patient encounter procedure 12/13/2020 Office Visit Primary Care Kelby Hamilton MD [facility] [place] [address] [facility] Start: 12-12-2020 End: 12-12-2020 Patient encounter procedure 12/12/2020 Office Visit Endocrinology, Diabetes & Metabolism Iris Galeana, [employer] [address] [place] [address] [phone] [facility] Endocr[facility]ology Start: 11-08-2020 End: 11-08-2020 Office Visit 11/08/2020 Office Visit Endocrinology, Diabetes & Metabolism Iris Galeana, [employer] [address] [place] [address] [phone] [facility] End[facility] Start: 11-01-2020 End: 11-01-2020 Office Visit 11/01/2020 Office Visit Primary Care Kelby Hamilton MD [address] [place] [address] [phone] [facility]iology [facility] Start: 10-25-2020 End: 10-25-2020 Clinical Support Encounter 10/25/2020 Clinical Support Encounter Endocrinology, Diabetes & Metabolism [facility] Endocrinology Start: 10-22-2020 End: 08-08-2021 CBC,PLATELETS CBC,PLATELETS Lab Routine Type 2 diabetes 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, with long-term current use of insulin Expected: 10/22/2020 (Approximate), Expires: 08/08/2021 [facility] Comment on above: Expected: 10/22/2020 (Approximate), Expi res: 08/08/2021 Start: 10-22-2020 End: 08-08-2021 Comprehensive metabolic 2000 panel COMPREHENSIVE METABOLIC PANEL Lab Routine Type 2 diabetes 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, with long-term current use of insulin Expected: 10/22/2020 (Approximate), Expires: 08/08/2021 [facility] Comment on above: Expected: 10/22/2020 (Approximate), Expi res: 08/08/2021 Start: 10-22-2020 End: 08-08-2021 HbA1c (Bld) [Mass fraction] HEMOGLOBIN A1C Lab Routine Type 2 diabetes 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, with long-term current use of insulin Expected: 10/22/2020 (Approximate), Expires: 08/08/2021 [facility] Comment on above: Expected: 10/22/2020 (Approximate), Expi res: 08/08/2021 Start: 10-22-2020 End: 08-08-2021 LIPID PANEL W CALCULATED LDL LIPID PANEL W CALCULATED LDL Lab Routine Type 2 diabetes 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, with long-term current use of insulin Expected: 10/22/2020, Expires: 08/08/2021 [facility] Comment on above: Expected: 10/22/2020, Expires: Start: 10-22-2020 End: 08-08-2021 MICROALBUMIN/CREATININE RATIO MICROALBUMIN/CREATININE RATIO Fluids Routine Type 2 diabetes 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, with long-term current use of insulin Expected: 10/22/2020 (Approximate), Expires: 08/08/2021 [facility] Comment on above: Expected: 10/22/2020 (Approximate), Expi res: 08/08/2021 Start: 09-07-2020 End: 09-07-2020 Patient encounter procedure 09/07/2020 Appointment Radiology Suleman Moreno MD [address] [place] [address] [phone] [facility] MRI Start: 08-08-2020 End: 08-08-2021 FRUCTOSAMINE FRUCTOSAMINE Lab Routine Type 2 diabetes 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, with long-term current use of insulin Expected: 08/08/2020, Expires: 08/08/2021 [facility] Comment on above: Expected: 08/08/2020, Expires: Start: 07-04-2020 End: 07-04-2020 Office Visit 07/04/2020 Office Visit Primary Care Kelby Hamilton MD [address] [place] [address] [phone] [facility] Cardiology and Primary Care Start: 06-24-2020 End: 04-25-2021 Glucose [Mass/Vol] CT CONT GLUC MNTR PHYSICIAN/QHP PROVIDED EQUIPTMENT CT Charge Routine Type 2 diabetes 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, with long-term current use of insulin Expected: 06/24/2020, Expires: 04/25/2021 [facility] Comment on above: Expected: 06/24/2020, Expires: Start: 05-09-2020 End: 05-09-2020 Office Visit 05/09/2020 Office Visit Endocrinology, Diabetes & Metabolism Iris Galeana, [employer] [address] [id number] [phone] [facility] Endocrinology Start: 04-25-2020 End: 04-25-2020 Clinical Support Encounter 04/25/2020 Clinical Support Encounter Endocrinology, Diabetes & Metabolism [facility] Endocrinology Start: 04-25-2020 End: 02-24-2021 Glucose [Mass/Vol] CT CONT GLUC MNTR PHYSICIAN/QHP PROVIDED EQUIPTMENT CT Charge Routine Type 2 diabetes mellitus with chronic kidney disease, with long-term current use of insulin, unspecified CKD stage Expected: 04/25/2020, Expires: 02/24/2021 [facility] Comment on above: Expected: 04/25/2020, Expires: Start: 04-11-2020 End: 03-09-2021 Complete blood count with white cell differential, automated CBC, EDIF, PLATELET Lab Routine Type 2 diabetes 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, with long-term current use of insulin Expected: 04/11/2020, Expires: 03/09/2021 [facility] Comment on above: Expected: 04/11/2020, Expires: Start: 04-11-2020 End: 03-09-2021 Comprehensive metabolic 2000 panel COMPREHENSIVE METABOLIC PANEL Lab Routine Type 2 diabetes 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, with long-term current use of insulin Expected: 04/11/2020, Expires: 03/09/2021 [facility] Comment on above: Expected: 04/11/2020, Expires: Start: 04-11-2020 End: 03-09-2021 FRUCTOSAMINE FRUCTOSAMINE Lab Routine Type 2 diabetes 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, with long-term current use of insulin Expected: 04/11/2020, Expires: 03/09/2021 [facility] Comment on above: Expected: 04/11/2020, Expires: Start: 04-11-2020 End: 03-09-2021 HbA1c (Bld) [Mass fraction] HEMOGLOBIN A1C Lab Routine Type 2 diabetes 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, with long-term current use of insulin Expected: 04/11/2020, Expires: 03/09/2021 [facility] Comment on above: Expected: 04/11/2020, Expires: Start: 04-11-2020 End: 03-09-2021 LIPID PANEL W CALCULATED LDL LIPID PANEL W CALCULATED LDL Lab Routine Type 2 diabetes 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, with long-term current use of insulin Expected: 04/11/2020, Expires: 03/09/2021 [facility] Comment on above: Expected: 04/11/2020, Expires: Start: 04-11-2020 End: 03-09-2021 MICROALBUMIN/CREATININE RATIO MICROALBUMIN/CREATININE RATIO Fluids Routine Type 2 diabetes 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, with long-term current use of insulin Expected: 04/11/2020, Expires: 03/09/2021 [facility] Comment on above: Expected: 04/11/2020, Expires: Start: 03-14-2020 End: 01-13-2021 Glucose [Mass/Vol] CT CONT GLUC MNTR PHYSICIAN/QHP PROVIDED EQUIPTMENT CT Charge Routine Type 2 diabetes mellitus with chronic kidney disease, with long-term current use of insulin, unspecified CKD stage Expected: 03/14/2020, Expires: 01/13/2021 [facility] Comment on above: Expected: 03/14/2020, Expires: 1 Start: 03-10-2020 End: 03-10-2020 Office Visit 03/10/2020 Office Visit Endocrinology, Diabetes & Metabolism Iris Galeana, [employer] [address] [place] [address] [phone] [facility] Endocrinology Start: 03-04-2020 End: 03-04-2020 Office Visit 03/04/2020 Office Visit Primary Care Kelby Hamilton MD [address] [place] [address] [phone] [facility] Cardiology and Primary Care Start: 02-25-2020 End: 02-25-2020 Clinical Support Encounter 02/25/2020 Clinical Support Encounter Endocrinology, Diabetes & Metabolism [facility] Endocrinology Start: 01-28-2020 End: 01-28-2020 Office Visit 01/28/2020 Office Visit Endocrinology, Diabetes & Metabolism Iris Galeana, [employer] [address] [place] [address] [phone] [facility] Endocrinology Start: 01-12-2020 Influenza vaccination [facility] Start: 01-12-2020 Influenza vaccination given Sequential Influenza Vacci ne (#1) [facility] Start: 01-11-2019 Influenza vaccination given SEQUENTIAL INFLUENZA VACCI NE (#1) [facility] Start: 12-04-2018 End: 12-04-2018 Office Visit 12/04/2018 Office Visit [employer] Nasim Gaspar MD [address] [place] [address] [address] [place] [address] [phone] [facility] Start: 12-04-2018 End: 12-04-2018 Appointment 12/04/2018 Appointment Radiology Nasim Gaspar MD [address] [place] [address] [address] [place] [address] [phone] [facility] Start: 12-03-2018 End: 12-03-2018 Appointment 12/03/2018 Appointment Cardiology Kelby Hamilton MD [address] [place] [address] [phone] [facility] Start: 10-02-2018 End: 10-02-2018 Ambulatory 10/02/2018 Office Visit [employer] Nasim Gaspar MD [address] [place] [address] [address] [place] [address] [phone] [facility] Start: 10-02-2018 End: 10-02-2018 Ambulatory 10/02/2018 Appointment Radiology Nasim Gaspar MD [address] [place] [address] [address] [place] [address] [phone] [facility] Start: 08-28-2018 Hemoglobin A1c/Hemoglobin.total mass fraction (Bld) [facility] Start: 01-11-2018 Influenza vaccination SEQUENTIAL INFLUENZA VACCINE (#1) [facility] Start: 01-10-2017 Glaucoma screening Dilated Retinal Exam [facility] Start: 01-10-2017 Hepatitis C antibody, confirmatory test DILATED RETINAL EXAM [facility] Start: 11-12-2016 BONE DENSITY BONE DENSITY [facility] Start: 11-12-2016 Pneumococcal vaccination [facility] Start: 11-12-2016 Screening for osteoporosis Bone Density Screening [facility] Start: 2011 Hepatitis B Vaccine (1 of 3 - Risk 3-dose series) Hepatitis B Vaccine (1 of 3 - Risk 3-dose series) [facility] Start: 2011 Respiratory Syncytial Virus Immunization: Risk, 60-74 Risk, or 75+ (1 - Risk 60-74 years 1-dose series) Respiratory Syncytial Virus Immunization: Risk, 60-74 Risk, or 75+ (1 - Risk 60-74 years 1-dose series) [facility] Start: 2011 RSV VACCINE (1 - 1-dose 60+ series) RSV VACCINE (1 - 1-dose 60+ series) [facility] Start: 2011 RSV Vaccine (1 - Risk 60-74 years 1-dose series) RSV Vaccine (1 - Risk 60-74 years 1-dose series) [facility] Start: 03-04-2010 Tetanus vaccination TETANUS [facility] Start: 11-12-2001 Administration of herpes zoster vaccine Zoster Vaccines (1 of 2) [facility] Start: 11-12-2001 Colonoscopy COLORECTAL CANCER SCREENING DISCUSSION [facility] Start: 11-12-2001 Screening for malignant neoplasm of colon [facility] Start: 11-12-2001 Zoster vaccine hzv live for subcutaneous use ZOSTER (SHINGLES) VACCINE (1 of 2) [facility] Start: 11-12-2001 ZOSTER VACCINES (1 of 2) ZOSTER VACCINES (1 of 2) [facility] Start: 03-05-2000 Urine microalbumin profile DTaP,Tdap,Td Vaccine (1 - Tdap) [facility] Start: 11-12-1996 COLOGUARD (FIT-DNA) COLOGUARD (FIT-DNA) [facility] Start: 11-12-1996 Colonoscopy [facility] Start: 11-12-1996 COLORECTAL CANCER SCREENING COLORECTAL CANCER SCREENING [facility] Start: 11-12-[address] COLONOGRAPHY [facility] Start: 11-12-1996 FECAL OCCULT BLOOD FECAL OCCULT BLOOD [facility] Start: 11-12-1996 Screening for malignant neoplasm of colon [facility] Start: 11-12-1996 SIGMOIDOSCOPY SIGMOIDOSCOPY [facility] Start: 1991 Fasting lipid profile LIPID SCREENING [facility] Start: 1991 Mammography MAMMOGRAM [facility] Start: 1991 Screening for malignant neoplasm of breast [facility] Start: 1991 Screening mammography [facility] Start: 11-12-1972 Screening for malignant neoplasm of cervix CERVICAL CANCER SCREENING DISCUSSION [facility] Start: 11-12-1970 Administration of herpes zoster vaccine Zoster Vaccines (1 of 2) [facility] Start: 11-12-1970 Hepatitis A Vaccine (1 of 2 - Risk 2-dose series) Hepatitis A Vaccine (1 of 2 - Risk 2-dose series) [facility] Start: 11-12-1970 Pneumococcal vaccination PNEUMOCOCCAL VACCINE SERIES (1 of 2 - PCV) [facility] Start: 11-12-1970 Pneumococcal Vaccine: 50+ (1 of 2 - PCV) Pneumococcal Vaccine: 50+ (1 of 2 - PCV) [facility] Start: 11-12-1970 SHINGRIX VACCINE (1 of 2) SHINGRIX VACCINE (1 of 2) [facility] Start: 11-12-1970 Third diphtheria, tetanus and acellular pertussis (DTaP) vaccination TDAP (ADULT) [facility] Start: 11-12-1970 Urine microalbumin profile DTAP,TDAP,TD (1 - Tdap) [facility] Start: 11-12-1970 Zoster vaccine hzv live for subcutaneous use ZOSTER (SHINGLES) VACCINE (1 of 2) [facility] Start: 11-12-1969 Annual PCP Team Chronic Disease Visit Annual PCP Team Chronic Disease Visit [facility] Start: 11-12-1969 Anxiety Screening Anxiety Screening [facility] Start: 11-12-1969 Depression Screening Depression Screening [facility] Start: 11-12-1969 Hepatitis B surface antibody level LDL CHOLESTEROL [facility] Start: 11-12-1969 Hepatitis C antibody, confirmatory test Hepatitis C Screening [facility] Start: 11-12-1969 HEPATITIS C SCREENING HEPATITIS C SCREENING [facility] Start: 11-12-1969 Tetanus vaccination TETANUS [facility] Start: 1967 COVID-19 Vaccine (1 of 2) COVID-19 Vaccine (1 of 2) [facility] Start: 1967 COVID-19 VACCINE (1) COVID-19 VACCINE (1) [facility] Start: 1963 Adolescent depression screening assessment Depression Screening (PHQ9) [facility] Start: 1963 COVID-19 Vaccine (1) COVID-19 Vaccine (1) [facility] Start: 11-12-1961 3 comp foot exam completed DIABETIC FOOT EXAM [facility] Start: 11-12-1961 Glaucoma screening Ophthalmology Exam [facility] Start: 11-12-1961 Hepatitis B screening URINE ALBUMIN:CREATININE RATIO [facility] Start: 11-12-1961 Microalbumin measurement, urine, quantitative Urine Microalbumin [facility] Start: 11-12-1961 End: 11-12-1961 Albumin DL <= 20 mg/L mass conc (U) URINE MICROALBUMIN [facility] Start: 11-12-1961 End: 11-12-1961 Diabetic foot examination [facility] Start: 11-12-1961 End: 11-12-1961 Ophthalmic examination and evaluation OPHTHALMOLOGY EXAM [facility] Start: 11-12-1957 Pneumococcal vaccination [facility] Start: 11-12-1957 Pneumococcal Vaccine: 65+ (1 of 2 - PCV) Pneumococcal Vaccine: 65+ (1 of 2 - PCV) [facility] Start: 11-12-1957 Pneumococcal Vaccine: Age 65+ (1 - PCV) Pneumococcal Vaccine: Age 65+ (1 - PCV) [facility] Start: 11-12-1957 Pneumococcal Vaccine: Age 65+ (1 of 2 - PCV) Pneumococcal Vaccine: Age 65+ (1 of 2 - PCV) [facility] Start: 11-12-1957 Pneumococcal Vaccine: Age 65+ (1 of 4 - PCV13) Pneumococcal Vaccine: Age 65+ (1 of 4 - PCV13) [facility] Start: 11-12-1957 PNEUMOCOCCAL: 65+ (1 - PCV) PNEUMOCOCCAL: 65+ (1 - PCV) [facility] Start: 11-12-1956 Hemoglobin A1c/Hemoglobin.total in Blood HBA1C [facility] Start: 11-12-1954 History and physical examination, annual for health maintenance Wellness Visit [facility] Start: 11-12-1954 Medicare Wellness Visit Medicare Wellness Visit [facility] Start: 05-15-1952 COVID-19 VACCINE (#1) COVID-19 VACCINE (#1) [facility] Start: 1951 Depression screening using PHQ-9 (Patient Health Questionnaire 9) score Depression Screening (PHQ9) [facility] Start: 1951 Diabetic foot examination DIABETIC FOOT EXAM [facility] Start: 1951 Diabetic retinal eye exam [facility] Start: 1951 Fall risk assessment Falls Risk Assessment [facility] Start: 1951 Glaucoma screening EYE EXAM [facility] Start: 1951 Hepatitis C antibody, confirmatory test [facility] Start: 1951 Microalbumin measurement, urine, quantitative URINE MICROALBUMIN TEST [facility] Start: 1951 Potassium [Moles/Vol] POTASSIUM [facility] Start: 1951 Screening for malignant neoplasm of colon [facility] Start: 1951 Screening mammography Mammogram [facility] Start: 1951 Urine screening for protein URINE MICROALBUMIN TEST [facility] Start: 1951 HEPATITIS C SCREENING HEPATITIS C SCREENING [facility] Start: 1951 Screening colonoscopy COLONOSCOPY [facility] Start: 1951 End: 1951 Screening for osteoporosis [facility] Start: 1951 End: 1951 Tetanus vaccination [facility] End: 08-14-2022 B12/Folate B12/Folate Lab Routine Other iron deficiency anemia 1 Occurrences starting 08/14/2021 until 08/14/2022 [facility] Comment on above: 1 Occurrences starting 08/14/2021 until 08/14/2022 End: 08-14-2022 Basic metabolic 2000 panel - Serum or Plasma Basic Metabolic Panel Lab Routine Other iron deficiency anemia every 12 weeks for 4 Occurrences starting 08/14/2021 until 08/14/2022 [facility] Comment on above: every 12 weeks for 4 Occurrences startin g 08/14/2021 until 08/14/2022 CBC AND ELECTRONIC DIFF CBC AND ELECTRONIC DIFF Lab Routine Pre-transplant evaluation for kidney transplant Ordered: 01/17/2022 [facility] Comment on above: Ordered: 01/17/2022 Complete blood count with white cell differential, automated CBC, EDIF, PLATELET Lab Routine Type 2 diabetes mellitus with chronic kidney disease, with long-term current use of insulin, unspecified CKD stage Ordered: 01/14/2020 [facility] Comment on above: Ordered: 01/14/2020 Complete blood count with white cell differential, automated CBC, EDIF, PLATELET Lab Routine Type 2 diabetes 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, with long-term current use of insulin Ordered: 06/19/2021 [facility] Comment on above: Ordered: 06/19/2021 Complete blood count with white cell differential, automated CBC, EDIF, PLATELET Lab Routine Type 2 diabetes 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, with long-term current use of insulin Ordered: 12/12/2020 [employer] Work Phone: Comment on above: Ordered: 12/12/2020 Complete blood count with white cell differential, automated CBC, EDIF, PLATELET Lab Routine Type 2 diabetes 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, with long-term current use of insulin [facility] Comment on above: Ordered: 01/31/2022 Complete blood count with white cell differential, automated CBC, EDIF, PLATELET Lab Routine Type 2 diabetes mellitus with chronic kidney disease on chronic dialysis, with long-term current use of insulin Ordered: 05/28/2024 [facility] Comment on above: Ordered: 05/28/2024 Complete blood count with white cell differential, automated CBC, EDIF, PLATELET Lab Routine Type 2 diabetes mellitus with chronic kidney disease on chronic dialysis, with long-term current use of insulin Ordered: 09/29/2024 [facility] Comment on above: Ordered: 09/29/2024 End: 07-21-2021 Complete blood count with white cell differential, manual CBC and Differential Lab Routine Stage 4 chronic kidney disease (HCC) 1 Occurrences starting 07/21/2020 until 07/21/2021 [facility] Comment on above: 1 Occurrences starting 07/21/2020 until 07/21/2021 End: 08-14-2022 Complete blood count with white cell differential, manual CBC and Differential Lab Routine Other iron deficiency anemia every 4 weeks for 12 Occurrences starting 08/14/2021 until 08/14/2022 [facility] Comment on above: every 4 weeks for 12 Occurrences startin g 08/14/2021 until 08/14/2022 Comprehensive metabo lic 2000 panel COMPREHENSIVE METABOLIC PANEL Lab Routine Type 2 diabetes mellitus with chronic kidney disease, with long-term current use of insulin, unspecified CKD stage Ordered: 01/14/2020 [facility] Comment on above: Ordered: 01/14/2020 End: 07-21-2021 Comprehensive metabolic 2000 panel Comprehensive Metabolic Panel Lab Routine Stage 4 chronic kidney disease (HCC) 1 Occurrences starting 07/21/2020 until 07/21/2021 [facility] Comment on above: 1 Occurrences starting 07/21/2020 until 07/21/2021 Comprehensive metabo lic 2000 panel - Serum or Plasma COMPREHENSIVE METABOLIC PANEL Lab Routine Type 2 diabetes 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, with long-term current use of insulin Ordered: 06/19/2021 [facility] Comment on above: Ordered: 06/19/2021 Comprehensive metabo lic 2000 panel - Serum or Plasma COMPREHENSIVE METABOLIC PANEL Lab Routine Type 2 diabetes 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, with long-term current use of insulin Ordered: 12/12/2020 [facility] Comment on above: Ordered: 12/12/2020 Comprehensive metabo lic 2000 panel - Serum or Plasma COMPREHENSIVE METABOLIC PANEL Lab Routine Type 2 diabetes 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, with long-term current use of insulin Ordered: 01/31/2022 [facility] Comment on above: Ordered: 01/31/2022 Comprehensive metabo lic 2000 panel - Serum or Plasma COMPREHENSIVE METABOLIC PANEL Lab Routine Type 2 diabetes mellitus with chronic kidney disease on chronic dialysis, with long-term current use of insulin Ordered: 05/28/2024 [facility] Comment on above: Ordered: 05/28/2024 Comprehensive metabo lic 2000 panel - Serum or Plasma COMPREHENSIVE METABOLIC PANEL Lab Routine Type 2 diabetes mellitus with chronic kidney disease on chronic dialysis, with long-term current use of insulin Ordered: 09/29/2024 [facility] Comment on above: Ordered: 09/29/2024 End: 04-29-2025 CT Abdomen and Pelvis WO contrast CT ABD/PEL WO IVCON Radiology Routine Chronic renal failure, unspecified CKD stage 1 Occurrences starting 03/30/2024 until 04/29/[address] [employer] Work Phone: Comment on above: 1 Occurrences starting 03/30/2024 until 04/29/2025 End: 12-04-2018 CT Abdomen Pelvis With And Without IV Contrast Only CT Abdomen Pelvis With And Without IV Contrast Only Imaging STAT Personal history of renal cancer Once for 1 Occurrences starting 12/04/2018 until 12/04/2018 [facility] Comment on above: Once for 1 Occurrences starting 12/05/19 19 until 12/04/2018 End: 05-04-2023 CT Humerus Left With Contrast CT Humerus Left With Contrast Imaging Routine Pain of left upper extremity Arm mass, left 1 Occurrences starting 05/04/2022 until 05/04/2023 [facility] Work Phone: Comment on above: 1 Occurrences starting 05/04/2022 until 05/04/2023 End: 06-23-2025 ECG COMPLETE ECG COMPLETE ECG Routine Pre-transplant evaluation for kidney transplant Preoperative examination 1 Occurrences starting 06/23/2024 until 06/23/2025 [facility] Work Phone: Comment on above: 1 Occurrences starting 06/23/2024 until 06/23/2025 End: 06-23-2025 Echocardiography ECHO Cardiology Routine Pre-operative cardiovascular examination Pre-transplant evaluation for kidney transplant 1 Occurrences starting 07/14/2024 until 06/23/2025 [facility] Work Phone: Comment on above: 1 Occurrences starting 07/14/2024 until 06/23/2025 End: 08-25-2022 Ferritin [Mass/volume] in Serum or Plasma Ferritin Lab Routine Stage 4 chronic kidney disease (HCC) Anemia due to stage 4 chronic kidney disease (HCC) 5 Occurrences starting 08/25/2021 until 08/25/2022 [facility] Work Phone: Comment on above: 5 Occurrences starting 08/25/2021 until 08/25/2022 [facility] FISTULA AR TERIOVENOUS End stage renal disease (HCC) [facility] Main OR FISTULA ARTERIOVENOUS FISTULA AR TERIOVENOUS ESRD (end stage renal disease) (HCC) [facility] Main OR FRUCTOSAMINE FRUCTOSAMINE Lab Routine Type 2 diabetes 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, with long-term current use of insulin Ordered: 01/31/2022 [facility] Comment on above: Ordered: 01/31/2022 End: 08-14-2022 Gastrointestinal occult blood test Occult Blood Stool Immunoassay (Hu Chavez, Phuong Only) Microbiology Routine Other iron deficiency anemia 1 Occurrences starting 08/14/2021 until 08/14/2022 [facility] Work Phone: Comment on above: 1 Occurrences starting 08/14/2021 until 08/14/2022 HbA1c (Bld) [Mass fraction] HEMO GLOBIN A1C Lab Routine Type 2 diabetes mellitus with chronic kidney disease, with long-term current use of insulin, unspecified CKD stage Or[facility]: [facility]14[facility]2020 [facility] Comment on above: Ordered: 01/14/2020 End: 07-21-2021 HbA1c (Bld) [Mass fraction] Hemoglobin A1c Lab Routine Type 2 diabetes mellitus without retinopathy ([facility]) 1 Occurrences starting 07/21/2020 until 07/21/2021 [facility] Comment on above: 1 Occurrences starting 07/21/2020 until 07/21/2021 Hemoglobin A1c/Hemoglobin.total in Blood HEMOGLOBIN A1C Lab Routine Type 2 diabetes 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, with long-term current use of insulin Ordered: 06/19/2021 [facility] Comment on above: Ordered: 06/19/2021 Hemoglobin A1c/Hemoglobin.total in Blood HEMOGLOBIN A1C Lab Routine Type 2 diabetes 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, with long-term current use of insulin Ordered: 12/12/2020 [facility] Comment on above: Ordered: 12/12/2020 Hemoglobin A1c/Hemoglobin.total in Blood HEMOGLOBIN A1C Lab Routine Type 2 diabetes 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, with long-term current use of insulin Ordered: 01/31/2022 [facility] Comment on above: Ordered: 01/31/2022 Hemoglobin A1c/Hemoglobin.total in Blood HEMOGLOBIN A1C Lab Routine Type 2 diabetes mellitus with chronic kidney disease on chronic dialysis, with long-term current use of insulin Ordered: 05/28/2024 [facility] Comment on above: Ordered: 05/28/2024 Hemoglobin A1c/Hemoglobin.total in Blood HEMOGLOBIN A1C Lab Routine Type 2 diabetes mellitus with chronic kidney disease on chronic dialysis, with long-term current use of insulin Ordered: 09/29/2024 [facility] Comment on above: Ordered: 09/29/2024 End: 08-18-2022 Hemoglobin and Hematocrit panel - Blood Hemoglobin and Hematocrit Lab STAT Stage 4 chronic kidney disease (HCC) Anemia due to stage 4 chronic kidney disease (HCC) once a week for 52 Occurrences starting 08/18/2021 until 08/18/2022 [facility] Work Phone: Comment on above: once a week for 52 Occurrences starting 08/18/2021 until 08/18/2022 End: 07-21-2021 Hepatitis C antibody measurement Hepatitis C Antibody Lab Routine Well adult health check 1 Occurrences starting 07/21/2020 until 07/21/2021 [facility] Comment on above: 1 Occurrences starting 07/21/2020 until 07/21/2021 End: 07-21-2021 Human immunodeficiency virus test HIV 1/2 Screen (4th Generation) Lab Routine Well adult health check 1 Occurrences starting 07/21/2020 until 07/21/2021 [facility] Comment on above: 1 Occurrences starting 07/21/2020 until 07/21/2021 End: 08-14-2022 Immunoglobulin light chains.free panel - Serum Immunoglobulin Free Light Chains,Blood Lab Routine Other iron deficiency anemia 1 Occurrences starting 08/14/2021 until 08/14/2022 [facility] Comment on above: 1 Occurrences starting 08/14/2021 until 08/14/2022 Immunoglobulin light chains.free panel - Serum Immunoglobulin Free Light Chains,Blood Lab Routine Other iron deficiency anemia 08/18/2021 2:07 PM EDT [facility] End: 08-14-2022 Immunoglobulin measurement IgG, IgA, IgM Immunoglobulins Lab Routine Other iron deficiency anemia 1 Occurrences starting 08/14/2021 until 08/14/2022 [facility] Comment on above: 1 Occurrences starting 08/14/2021 until 08/14/2022 Immunoglobulin measurement IgG, IgA, IgM Immunoglobulins Lab Routine Other iron deficiency anemia 08/18/2021 2:07 PM EDT [facility] End: 08-14-2022 Iron measurement Iron Study with Ferritin Lab Routine Other iron deficiency anemia every 12 weeks for 4 Occurrences starting 08/14/2021 until 08/14/2022 [facility] Comment on above: every 12 weeks for 4 Occurrences startin g 08/14/2021 until 08/14/2022 End: 06-23-2025 KID K/P PANC REC INIT W/U KID K/P PANC REC INIT W/U ALLOGEN Routine Pre-transplant evaluation for kidney transplant 1 Occurrences starting 06/23/2024 until 06/23/2025 [facility] Comment on above: 1 Occurrences starting 06/23/2024 until 06/23/2025 KID K/P PANC REC INIT W/U KID K/ P PANC REC INIT W/U ALLOGEN Routine Pre-transplant evaluation for kidney transplant 06/23/2024 4:03 PM EST [facility] End: 08-14-2022 Lactate dehydrogenase [Enzymatic activity/volume] in Serum or Plasma by Lactate to pyruvate reaction LDH Lab Routine Other iron deficiency anemia 1 Occurrences starting 08/14/2021 until 08/14/2022 [facility] Comment on above: 1 Occurrences starting 08/14/2021 until 08/14/2022 End: 07-21-2021 Lipid 1996 panel Lipid Panel Lab Routine Mixed hyperlipidemia 1 Occurrences starting 07/21/2020 until 07/21/2021 [facility] Comment on above: 1 Occurrences starting 07/21/2020 until 07/21/2021 LIPID PANEL W CALCULATED LDL LIP ID PANEL W CALCULATED LDL Lab Routine Type 2 diabetes mellitus with chronic kidney disease, with long-term current use of insulin, unspecified CKD stage Ordered: 01/14/2020 [facility] Comment on above: Ordered: 01/14/2020 LIPID PANEL W CALCULATED LDL LIP ID PANEL W CALCULATED LDL Lab Routine Type 2 diabetes 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, with long-term current use of insulin Ordered: 06/19/2021 [facility] Comment on above: Ordered: 06/19/2021 LIPID PANEL W CALCULATED LDL LIP ID PANEL W CALCULATED LDL Lab Routine Type 2 diabetes 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, with long-term current use of insulin Ordered: 12/12/2020 [facility] Comment on above: Ordered: 12/12/2020 LIPID PANEL W CALCULATED LDL LIP ID PANEL W CALCULATED LDL Lab Routine Type 2 diabetes mellitus with chronic kidney disease on chronic dialysis, with long-term current use of insulin Ordered: 05/28/2024 [facility] Comment on above: Ordered: 05/28/2024 LIPID PANEL W CALCULATED LDL LIP ID PANEL W CALCULATED LDL Lab Routine Type 2 diabetes mellitus with chronic kidney disease on chronic dialysis, with long-term current use of insulin Ordered: 09/29/2024 [facility] Comment on above: Ordered: 09/29/2024 End: 07-21-2021 Magnesium [Mass/Vol] Magnesium Level Lab Routine Stage 4 chronic kidney disease (HCC) 1 Occurrences starting 07/21/2020 until 07/21/2021 [facility] Comment on above: 1 Occurrences starting 07/21/2020 until 07/21/2021 End: 11-25-2023 MG Breast - bilateral Screening Mammography Screening Noel Bilateral Imaging Routine Breast cancer screening by mammogram 1 Occurrences starting 09/24/2022 until 11/25/2023 [facility] Work Phone: Comment on above: 1 Occurrences starting 09/24/2022 until 11/25/2023 MICROALBUMIN/CREATININE RATIO WA CROALBUMIN/CREATININE RATIO Fluids Routine Type 2 diabetes mellitus with chronic kidney disease, with long-term current use of insulin, unspecified CKD stage Ordered: 01/14/2020 [facility] Comment on above: Ordered: 01/14/2020 MICROALBUMIN/CREATININE RATIO WA CROALBUMIN/CREATININE RATIO Fluids Routine Type 2 diabetes 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, with long-term current use of insulin Ordered: 06/19/2021 [facility] Comment on above: Ordered: 06/19/2021 MICROALBUMIN/CREATININE RATIO WA CROALBUMIN/CREATININE RATIO Fluids Routine Type 2 diabetes 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, with long-term current use of insulin Ordered: 12/12/2020 [facility] Comment on above: Ordered: 12/12/2020 End: 01-13-2020 MR Kidney Without Contrast MR Kidney Without Contrast Imaging Routine Renal cell carcinoma, unspecified laterality (HCC) Once for 1 Occurrences starting 01/13/2020 until 01/13/2020 [facility] Comment on above: Once for 1 Occurrences starting 01/13/20 20 until 01/13/2020 MR Kidney Without Contrast MR Ki dney Without Contrast Imaging Routine Renal cell carcinoma, unspecified laterality (HCC) 01/13/2020 6:33 PM EDT [facility] End: 09-07-2020 MRI of abdomen without contrast MR Abdomen Without Contrast Imaging Routine Renal cell carcinoma, unspecified laterality (HCC) Once for 1 Occurrences starting 09/07/2020 until 09/07/2020 [facility] Comment on above: Once for 1 Occurrences starting 09/08/19 21 until 09/07/2020 MRI of abdomen witho ut contrast MR Abdomen Without Contrast Imaging Routine Renal cell carcinoma, unspecified laterality (HCC) 09/07/2020 7:59 PM EDT [facility] End: 07-23-2025 NM Heart Perfusion W stress and W radionuclide IV NM CARDIAC PERF STRESS/PHARM Radiology Routine Pre-operative cardiovascular examination Pre-transplant evaluation for kidney transplant Encounter for other preprocedural examination 1 Occurrences starting 07/14/2024 until 07/23/2025 [facility] Comment on above: 1 Occurrences starting 07/14/2024 until 07/23/2025 [facility] referral [facility] Work Phone: End: 12-15-2022 Radionuclide myocardial perfusion study NM Myocardial Perfusion Multiple SPECT Imaging Routine Chest pain, unspecified type 1 Occurrences starting 12/15/2021 until 12/15/2022 [facility] Work Phone: Comment on above: 1 Occurrences starting 12/15/2021 until 12/15/2022 RECIPIENT NOTIFICATION RECIPIENT NOTIFICATION ALLOGEN Routine Pre-transplant evaluation for kidney transplant Ordered: 06/23/2024 [facility] Comment on above: Ordered: 06/23/2024 End: 08-14-2022 Reticulocytes panel - Blood Reticulocyte Lab Routine Other iron deficiency anemia 1 Occurrences starting 08/14/2021 until 08/14/2022 [facility] Comment on above: 1 Occurrences starting 08/14/2021 until 08/14/2022 End: 08-27-2023 Saphenous vein mapping Saphenous vein mapping Vascular Ultrasound Routine ESRD (end stage renal disease) ([facility]) Complication of arteriovenous dialysis fistula, initial encounter Arteriovenous fistula stenosis, initial encounter ([facility]) 1 Occurrences starting 06/28/2022 until 08/27/2023 [facility] Work Phone: Comment on above: 1 Occurrences starting 06/28/2022 until 08/27/2023 End: 08-14-2022 Serum immunofixation Immunofixation, Serum Lab Routine Other iron deficiency anemia 1 Occurrences starting 08/14/2021 until 08/14/2022 [facility] Comment on above: 1 Occurrences starting 08/14/2021 until 08/14/2022 Serum immunofixation Immunofixat ion, Serum Lab Routine Other iron deficiency anemia 08/18/2021 2:07 PM EDT [facility] End: 08-14-2022 Serum protein electrophoresis Protein Electrophoresis, Blood Lab Routine Other iron deficiency anemia 1 Occurrences starting 08/14/2021 until 08/14/2022 [facility] Comment on above: 1 Occurrences starting 08/14/2021 until 08/14/2022 Serum protein electrophoresis Pr otein Electrophoresis, Blood Lab Routine Other iron deficiency anemia 08/18/2021 2:07 PM EDT [facility] End: 07-15-2023 Ultrasound hemodialysis access Ultrasound hemodialysis access Vascular Ultrasound Routine ESRD (end stage renal disease) ([facility]) 1 Occurrences starting 05/16/2022 until 07/15/2023 [facility] Work Phone: Comment on above: 1 Occurrences starting 05/16/2022 until 07/15/2023 End: 08-20-2023 Ultrasound hemodialysis access Ultrasound hemodialysis access Vascular Ultrasound Routine ESRD (end stage renal disease) ([facility]) 1 Occurrences starting 06/21/2022 until 08/20/2023 [facility] Work Phone: Comment on above: 1 Occurrences starting 06/21/2022 until 08/20/2023 End: 03-17-2022 Urate [Mass/volume] in Serum or Plasma Uric Acid Lab Routine Acute gout due to renal impairment involving multiple sites 1 Occurrences starting 03/17/2021 until 03/17/2022 [facility] Work Phone: Comment on above: 1 Occurrences starting 03/17/2021 until 03/17/2022 End: 01-07-2025 US Thyroid gland US Thyroid Only Imaging Routine Thyroid nodule 1 Occurrences starting 01/08/2024 until 01/07/2025 [facility] Work Phone: Comment on above: 1 Occurrences starting 01/08/2024 until 01/07/2025 VITAMIN D (25-HYDROXY,TOTAL) VIT AREVALO D (25-HYDROXY,TOTAL) Lab Routine Type 2 diabetes 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, with long-term current use of insulin Vitamin D deficiency Ordered: 06/19/2021 [facility] Comment on above: Ordered: 06/19/2021 End: 07-23-2025 XR Chest PA and Lateral XR CHEST 2V FRONTAL/LAT Radiology Routine Pre-transplant evaluation for kidney transplant Preoperative examination 1 Occurrences starting 06/23/2024 until 07/23/2025 [facility] Comment on above: 1 Occurrences starting 06/23/2024 until 07/23/2025 End: 12-23-2024 XR Knee - right 2 Views XR Knee Right 2 Views (Standard) Imaging Routine Acute pain of right knee 1 Occurrences starting 12/24/2023 until 12/23/2024 [facility] Work Phone: Comment on above: 1 Occurrences starting 12/24/2023 until 12/23/2024 Immunizations Immunization Date Immunization Notes Care Provider [facility] 02-17-2024 Seasonal, trivalent, recombinant, injectable influenza vaccine, preservative free Mateus Diaz MD Work Phone: [facility] 02-17-2024 influenza virus vaccine, unspecified formulation Rose Foote OT [facility] 02-18-2023 Seasonal, quadrivalent, recombinant, injectable influenza vaccine, preservative free Danny Rose MD Work Phone: [facility] 02-18-2023 influenza virus vaccine, unspecified formulation Rossana Funes LA Work Phone: [facility] 02-27-2022 Influenza IIV4 high dose 65 and Older Yan Campbell MD Work Phone: [facility] 02-27-2018 HEMOGLOBIN A1C Nasim Gaspar [facility] 03-04-2000 TD(adult) unspecifie d formulation [facility] hepatitis B vaccine, pediatric or pediatric/adolescent dosage [facility] hepatitis B vaccine, pediatric or pediatric/adolescent dosage Vijeth Srieri [facility] 01-05-1997 hepatitis B vaccine, pediatric or pediatric/adolescent dosage [facility] Payers Date Payer Category Payer Private Health Insurance [employer]V [id number] 2023 Self-pay 2022 Medicare (Managed Care) 1.2. [id number] 2022 Medicaid [id number] [id number] .[id number] 2022 Medicaid [id number] 2020 Medicare Managed Car e (unspecified) [id number] .[id number] 2020 Unknown [id number] 2016 Medicare [id number] 2016 Medicare MEDICARE MEDICAR E PART A & B xxxxxxxxxxx 2016-Present [place] xxxxxxxxxxx [id number] .[id number] 2016 Medicare [id number] .7.3.879537.315 2016 Medicare [id number]. 1.13.385.2 .7.3.654800.315 2016 Unknown M[place] TRADITIONAL xxxxxxxxxxxx 2016-Present xxxxxxxxxxxx [id number] .[id number] 2016 Unknown [id number] 1.2.840.159627.1.13.385.2 .7.3.689408.315 2016 Unknown 1.2.840.238007. 1.13.385.2 .7.3.731880.315 2016 Medicare [id number] 2016 Unknown [id number] 2016 Unknown [id number] 1950 Unknown [id number] 2.16.840.1.761048.3.579.2 .902 1950 Unknown [id number] 2.16.840.1.571885.3.579.2 .902 1950 Unknown [id number] 2.16.840.1.054565.3.579.2 .902 1950 Unknown [id number] 2.16.840.1.367992.3.579.2 .902 1950 Unknown [id number] 2.16.840.1.355673.3.579.2 .594 1950 Unknown [id number] 2.16.840.1.500364.3.579.2 .983 1950 Unknown [id number] 2.16.840.1.524268.3.579.2 .983 1950 Unknown [id number] 2.16.840.1.446519.3.579.2 .983 1951 Unknown [id number] 2.16.840.1.799158.3.579.2 .903 1950 Unknown [id number] 2.16.840.1.599244.3.579.2 .903 1951 Unknown [id number] 2.16.840.1.934799.3.579.2 .903 1951 Unknown [id number] 2.16.840.1.256555.3.579.2 .903 1950 Unknown [id number] 2.16.840.1.372908.3.579.2 .903 1950 Unknown [id number] 2.16.840.1.172640.3.579.2 .1950 Unknown [id number] 2.16.840.1.052582.3.579.2 .1950 Unknown [id number] 2.16.840.1.887183.3.579.2 .98 1950 Unknown [id number] 2.16.840.1.844383.3.579.2 .98 1950 Unknown [id number] 2.16.840.1.589085.3.579.2 .1950 Unknown [id number] 2.16.840.1.354494.3.579.2 .1950 Unknown [id number] 2.16.840.1.269243.3.579.2 .1950 Unknown [id number] 2.16.840.1.250879.3.579.2 .1950 Unknown [id number] 2.16.840.1.349543.3.579.2 .1950 Unknown [id number] 2.16.840.1.819437.3.579.2 .1950 Unknown [id number] 2.16.840.1.814970.3.579.2 .1950 Unknown [id number] 2.16.840.1.184735.3.579.2 .1950 Unknown [id number] 2.16.840.1.616537.3.579.2 . Unknown [facility] [id number] Unknown [id number] 2.16.840.1.649394.3.579.2 .462 Unknown [id number] 2.16.840.1.018843.3.579.2 .462 Unknown [id number] 2.16.840.1.428907.3.579.2 .462 Unknown [id number] 2.16.840.1.227957.3.579.2 .462 Unknown [id number] 2.16.840.1.053136.3.579.2 .462 Unknown [id number] 2.16.840.1.091415.3.579.2 .462 Unknown [id number] 2.16.840.1.699107.3.579.2 .462 Unknown [id number] 2.16.840.1.322278.3.579.2 .462 Unknown [id number] 2.16.840.1.043150.3.579.2 .462 Unknown [id number] 2.16840.1.033945.3.579.2 .462 Unknown [id number] 2.16.840.1.396892.3.579.2 .462 Social History Date Type Detail Facility Tobacco smoking stat [facility] Unknown if ever smoked [facility] Start: 1950 Sex Assigned At Not on file [facility] Start: 04-09-2018 End: 10-18-2021 Tobacco smoking status MNIS Never smoker [facility] Start: 02-12-2018 Alcohol Comment socially [facility] Start: 01-08-2019 End: 10-18-2021 Tobacco use and exposure Never used [facility] Start: 01-08-2019 End: 06-23-2024 Alcohol intake Current drinker of alcohol (finding) [facility] Start: 08-04-2021 End: 09-10-2022 Exposure to SARS-CoV-2 (event) Not sure [facility] Start: 01-14-2020 End: 08-17-2022 Alcohol intake Ex-drinker (finding) [facility] Start: 02-12-2018 End: 12-21-2021 Cigarette pack-years [facility] Start: 12-21-2021 History SDOH Social Connections Get Together 2 [facility] Start: 12-21-2021 History SDOH Financial 3 [facility] Start: 12-21-2021 History SDOH Food Worry 1 [facility] Start: 02-22-2016 Alcohol intake 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 Never true [facility] Start: 02-27-2018 Gender identity Identifies as female gender (finding) [facility] Start: 02-27-2018 Sexual orientation Heterosexual (fin ding) [facility] Start: 10-25-2022 End: 03-26-2023 Tobacco smoking status NHIS Unknown if ever smoked [facility] Start: 1950 Sex Assigned At Female W [facility] Start: 06-23-2024 Alcohol Comment Once/month [facility] In the past 12 month s, was there a time when you were not able to pay the mortgage or rent on time? No [facility] Start: 11-23-2019 Sex Female (finding) [facility] NEGATED: Highlighted row [facility] Medical Equipment Procedure Code Equipment Code Equipment Origin al Text Equipment Identifier Dates Creation, AV fistula, using vein transposition technique ([id number]) Synthetic vascular graft ()[id number]) [id number] FDA Start: 02-04-2024 Creation, AV fistula, using vein transposition technique Ligation clip, metallic ()[id number] ()[id number](10) [id number] FDA Start: 02-04-2024 Creation, AV fistula Plant polys accharide haemostatic agent, bioabsorbable ()[id number] ()[id number](10) [id number] FDA Start: 03-26-2023 Creation, AV fistula Venous endo vascular stent-graft ()[id number]) [id number] FDA Start: 03-26-2023 Creation, AV fistula Ligation cl ip, metallic ()[id number] FDA Start: 03-26-2023 Creation, AV fistula Ligation cl ip, metallic ()[id number] )[id number](90) [id number] FDA Start: 03-26-2023 Creation, AV fistula SUTURE,LIGA CLIP MED [id number] FDA Start: 11-26-2023 Creation, AV fistula SUTURE,LIGA CLIP MED [id number] FDA Start: 11-26-2023 Creation, AV fistula SUTURE,LIGA CLIP SM [id number] FDA Start: 11-26-2023 Creation, AV fistula SUTURE,LIGA CLIP SM [id number] FDA Start: 11-26-2023 Hemostat 2 X 14i n Surgicel - [id number] Start: 03-26-2018 Kit 4ml Vh S/D Tisseel Frozen - [id number] Start: 03-26-2018 Hemostat 2 X 14i n Surgicel - [id number] Start: 03-26-2018 Kit 4ml Vh S/D Tisseel Frozen - [id number] Start: 03-26-2018 Hemostat 2 X 14i n Surgicel - [id number] Start: 03-26-2018 Kit 4ml Vh S/D Tisseel Frozen - [id number] Start: 03-26-2018 by Miscellaneous route 3 (three) times a day . [id number] Start: 10-28-2019 End: 10-07-2020 by Other route T hree times a day. [id number] Start: 10-28-2019 End: 06-19-2021 TEST 3 TIMES NONA LY DIRECTED [id number] Start: 10-07-2020 End: 08-15-2021 Use to check blo od sugar twice daily. Please dispense with lancets. [id number] Start: 06-19-2021 End: 06-19-2021 TEST 3 TIMES NONA LY DIRECTED [id number] Start: 08-15-2021 Kit 14.5fr 28cm Cath Std Hemodialysis Glidepath - [id number], [id number] FDA Start: 11-14-2021 1 strip by Instructed route 2 times daily. [id number] Start: 09-13-2021 End: 06-18-2023 Use to check blo od sugar twice daily. Please dispense with lancets. [id number] Start: 06-26-2021 End: 01-31-2022 Use to test bloo d sugar twice daily [id number] Start: 06-19-2021 Use to check blo od sugars twice daily [id number] Start: 01-31-2022 End: 06-12-2022 Graft 4-7mm X 45 cm Std-Wall Dialysis Non Ring - [id number]_[facility] Start: 05-16-2022 Sealant 10ml Hemostatic Matrix Fast Prep Floseal - [id number]_[facility] Start: 05-16-2022 Use to check blo od sugars twice daily [id number] Start: 06-12-2022 End: 06-18-2023 Kit 14.5fr 24cm Cath Std Hemodialysis Glidepath - [id number], [id number][facility] Start: 04-02-2023 Use to check blo od sugar 3 times a day [id number] Start: 06-13-2022 End: 06-18-2023 Use to check blo od sugar 3 times a day [id number] Start: 06-18-2023 End: 05-28-2024 Hemostat 8 X 12. 5cm X 10mm Surgifoam Gelatin Sponge - [id number]_[facility] Start: 05-16-2022 Comment on above: Description: Used 1/ 2 of Gelfoam with 60mg of Paperverine and 1/2 of Gelfoam with 5000 units Thrombin. Use to check blo od sugar 3 times a day [id number] Start: 05-28-2024 End: 09-29-2024 Use to check blo od sugar 3 times a day [id number] Start: 09-29-2024 Goals Date Patient Goal Desired Activity /State Personal health goal Comment on above: Formatting of this n ote might be different from the original. Blood sugar levels outside the normal range may be an indicator of diabetes. Comment on above: Formatting of this n ote might be different from the original. Blood sugar levels outside the normal range may be an indicator of diabetes. Functional Status Date Assessment Result Facility 03-27-2023 Functional status Activity Abili ty Unable to Assess;Bedrest [facility] Work Phone: Mental Status Date Assessment Result Facility 03-27-2023 Cognitive function Voice/Name [facility] Work Phone: Clinical Notes 07-13-2014 to 09-29-2024 Ras Wu - 09/29/2024 11:00 AM EDTTariel Berry CNP - 09/29/2024 11:00 AM EDTTelephone Encounter - Lila Rodriguez LPN - 08/07/2024 12:11 PM EDTPatient InstructionsPatient Instructions Note Date & Type Note Facility 09-29-2024 History of Present illness Narrative Nurse Note: Review of Systems Constitutional: Negative for fatigue and unexpected weight change. Eyes: Negative for visual disturbance. Respiratory: Negative for shortness of breath. Gastrointestinal: Negative for constipation, diarrhea, nausea and vomiting. Endocrine: Negative for polydipsia and polyuria. Neurological: Negative for numbness (some in both hands- from surgery). Psychiatric/Behavioral: Negative for sleep disturbance. Nursing Assessment: Physical Exam History of Present Illness Type 2 diabetes with renal failure: This is a follow-up visit to the office for lab review. She was diagnosed with diabetes in 2011. Family history of diabetes includes her daughter. Currently taking Trulicity 0.75 mg weekly and Tresiba 6 units if needed. She is on hemodialysis twice a week. She has been holding Tresiba if blood sugar <200 mg/dL at bedtime, always basing Tresiba off bedtime sugars. Not taking metformin due to CKD. Denies any hypoglycemic symptoms since doing this. She is able to verbalize appropriate treatment of hypoglycemia and also does have nasal glucagon available at home. Labs done 05/09/2024 demonstrated fasting blood sbqnari=962, c-peptide=32.33. Recent labs done 09/26/2024 demonstrate hemoglobin A1C=6.1% up from 5.6% down from 6.1%, GFR=7. Does not see a valve pipe irrigator and denies any symptoms of peripheral neuropathy. Last visit with ophthalmology was Hypertension: Blood pressure above target today. Follows closely with nephrology for blood pressure control. Hyperlipidemia: Recent LDL=92 and triglycerides=85. Currently on atorvastatin 40 mg daily. Objective Review of Systems Vitals: Blood pressure 144/72, pulse 66, resp. rate 16, height 1.676 m (5' 5.98), weight 84.6 kg (186 lb 9.6 oz). Physical Exam Constitutional: Appearance: Normal appearance. HENT: Head: Normocephalic. Neck: Vascular: No carotid bruit. Cardiovascular: Rate and Rhythm: Normal rate and regular rhythm. Pulmonary: Effort: Pulmonary effort is normal. Breath sounds: Normal breath sounds. Musculoskeletal: Cervical back: Neck supple. Lymphadenopathy: Cervical: No cervical adenopathy. Skin: General: Skin is warm and dry. Neurological: General: No focal deficit present. Mental Status: She is alert and oriented to person, place, and time. Psychiatric: Mood and Affect: Mood normal. Behavior: Behavior normal. Thought Content: Thought content normal. Judgment: Judgment normal. Foot exam: +1 palpable dorsalis pedis pulses bilaterally. Good foot care. Intact monofilament sensation bilaterally. Neurological Exam Mental Status Alert. Oriented to person, place, and time. Assessment and Plan Type 2 diabetes: A1c is meeting aggressive targets. No glycemic data to review. We will continue Tresiba 6 units nightly and we will continue with Trulicity 0.75 mg weekly. We will see her back in 4 months with labs and logbook of blood sugars. Hypertension: Blood pressure above target today. Managed by PCP/nephrology. Hyperlipidemia: Continue atorvastatin. We will continue to follow for diabetes documented in this encounter [employer] 08-07-2024 Telephone encounter Note Images from the original note were not included. Leslie is requesting a refill for Requested Prescriptions Pending Prescriptions Disp Refills atorvastatin (LIPITOR) 40 MG tablet 90 tablet 0 Sig: Take 1 (one) tablet (40 mg total) by mouth every morning Reasons: high cholesterol. Last refill: 05/17/2023 Last appt: 07/09/2024 Upcoming appt (when is it due or is it scheduled): Return in about 6 months (around 01/06/2025). Follow up: Refill pending for review without additional follow up based on information above. [facility] 08-07-2024 Miscellaneous Notes Images from the original note were not included. Leslie is requesting a refill for Requested Prescriptions Pending Prescriptions Disp Refills atorvastatin (LIPITOR) 40 MG tablet 90 tablet 0 Sig: Take 1 (one) tablet (40 mg total) by mouth every morning Reasons: high cholesterol. Last refill: 05/17/2023 Last appt: 07/09/2024 Upcoming appt (when is it due or is it scheduled): Return in about 6 months (around 01/06/2025). Follow up: Refill pending for review without additional follow up based on information above. documented in this encounter [facility] 07-11-2024 Evaluation + Plan note Associated Problem(s): Change in bowel movement Not really a new problem, we discussed differentials like certain foods, medications, diverticulitis. Last Colonoscopy- 2021 + Tubular adenoma, diverticulosis, and hemorrhoids. Next colonoscopy due 2026 Recommend adding fiber. Try to avoid the restaurants and fruits that are triggering her symptoms. Strict return precautions include blood in the stool, increase in stool changes, additional symptoms [facility] 07-11-2024 Miscellaneous Notes Associated Problem(s): Change in bowel movement Not really a new problem, we discussed differentials like certain foods, medications, diverticulitis. Last Colonoscopy- 2021 + Tubular adenoma, diverticulosis, and hemorrhoids. Next colonoscopy due 2026 Recommend adding fiber. Try to avoid the restaurants and fruits that are triggering her symptoms. Strict return precautions include blood in the stool, increase in stool changes, additional symptoms Associated Problem(s): Anemia due to stage 5 chronic kidney disease (HCC) Chronic, stable. Currently on iron. Last labs reviewed: H/H 1133.4 Associated Problem(s): End stage renal disease (HCC) Chronic, has a history of nephrectomy due to renal cell carcinoma. [facility] Liliana Lopez for HD, has RUE- AV graft Labs up to date PTH 235 Calium 9.8 Associated Problem(s): Type 2 diabetes 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, with long-term current use of insulin (HCC) Chronic, Stable HA1c 5.6, down from 6.4 Dr. Figueroa ( [facility]) Associated Problem(s): Secondary hyperparathyroidism of renal origin (HCC) Chronic secondary to renal failure. She is on HD Calcium is wnl, low vitamin D Last PTH elevated (235). Currently stable. Associated Problem(s): (HFpEF) heart failure with preserved ejection fraction (HCC) Chronic, she was concerned about this diagnosis but she has had known pulmonary congestion, edema, increase BNP and diastolic dysfunction, clinical heart failure. She is stable with no signs of fluid overload today. Last echo 11/15/2021 showed LVH, grade 2 diastolic dysfunction. LVEF 68% and + pulmonary Hypertension 59 mmHg. Now seeing amortization clerk at [facility] for renal transplant list. GDMT- Norvasc 10 mg, Carvedilol 25 mg, Entresto, Lasix 80 g daily, hydralazine Additional meds: clonidine patch Medications managed by specialist to avoid any dose confusion documented in this encounter [facility] 07-11-2024 Evaluation + Plan note Associated Problem(s): Anemia due to stage 5 chronic kidney disease (HCC) Chronic, stable. Currently on iron. Last labs reviewed: H/H .4 [facility] 07-11-2024 Evaluation + Plan note Associated Problem(s): End stage renal disease (HCC) Chronic, has a history of nephrectomy due to renal cell carcinoma. Follows with [facility] Liliana Lopez for HD, has RUE- AV graft Labs up to date PTH 235 Calium 9.8 [facility] 07-11-2024 Evaluation + Plan note Associated Problem(s): Type 2 diabetes 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, with long-term current use of insulin (HCC) Chronic, Stable HA1c 5.6, down from 6.4 Dr. Figueroa ( [facility]) [facility] 07-11-2024 Evaluation + Plan note Associated Problem(s): Secondary hyperparathyroidism of renal origin (HCC) Chronic secondary to renal failure. She is on HD Calcium is wnl, low vitamin D Last PTH elevated (235). Currently stable. [facility] 07-09-2024 Instructions Danny Rose MD - 07/09/2024 11:31 AM EST Increase fiber. Keep a food diary, call if not better. Fiber gummies 10 mg day FiberOne bars Metamucil or benefiber documented in this encounter [facility] 07-09-2024 Evaluation + Plan note Associated Problem(s): (HFpEF) heart failure with preserved ejection fraction (HCC) Chronic, she was concerned about this diagnosis but she has had known pulmonary congestion, edema, increase BNP and diastolic dysfunction, clinical heart failure. She is stable with no signs of fluid overload today. Last echo 11/15/2021 showed LVH, grade 2 diastolic dysfunction. LVEF 68% and + pulmonary Hypertension 59 mmHg. Now seeing amortization clerk at [facility] for renal transplant list. GDMT- Norvasc 10 mg, Carvedilol 25 mg, Entresto, Lasix 80 g daily, hydralazine Additional meds: clonidine patch Medications managed by specialist to avoid any dose confusion [facility] 07-09-2024 Note Leslie Carcamo is a 73 y.o. female Assessment/Plan: Problem List Items Addressed This Visit Endocrine Type 2 diabetes 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, with long-term current use of insulin (HCC) - Primary Chronic, Stable HA1c 5.6, down from 6.4 Dr. Figueroa ( [facility]) Secondary hyperparathyroidism of renal origin (HCC) Chronic secondary to renal failure. She is on HD Calcium is wnl, low vitamin D Last PTH elevated (235). Currently stable. Cardiovascular and Mediastinum (HFpEF) heart failure with preserved ejection fraction (HCC) Chronic, she was concerned about this diagnosis but she has had known pulmonary congestion, edema, increase BNP and diastolic dysfunction, clinical heart failure. She is stable with no signs of fluid overload today. Last echo 11/15/2021 showed LVH, grade 2 diastolic dysfunction. LVEF 68% and + pulmonary Hypertension 59 mmHg. Now seeing amortization clerk at [facility] for renal transplant list. GDMT- Norvasc 10 mg, Carvedilol 25 mg, Entresto, Lasix 80 g daily, hydralazine Additional meds: clonidine patch Medications managed by specialist to avoid any dose confusion Genitourinary End stage renal disease (HCC) Chronic, has a history of nephrectomy due to renal cell carcinoma. Follows with [facility] Dr Liliana Lopez for HD, has RUE- AV graft Labs up to date PTH 235 Calium 9.8 Other Anemia due to stage 5 chronic kidney disease (HCC) Chronic, stable. Currently on iron. Last labs reviewed: H/H .4 Change in bowel movement Not really a new problem, we discussed differentials like certain foods, medications, diverticulitis. Last Colonoscopy- 2021 + Tubular adenoma, diverticulosis, and hemorrhoids. Next colonoscopy due 2026 Recommend adding fiber. Try to avoid the restaurants and fruits that are triggering her symptoms. Strict return precautions include blood in the stool, increase in stool changes, additional symptoms My ongoing relationship with Leslie Carcamo requires continued responsibility and cognitive effort of being the focal point for all services related to chronic condition(s). Return in about 6 months (around 01/06/2025). Leslie Carcamo is a 73 y.o. female who presents for Chief Complaint Patient presents with Diabetes Gap Closure (Health Maintenance) Mammogram due on 08/24/2021 Diabetic Foot Exam due on 01/03/2024 HPI 73 year-old female with a history of end-stage renal disease on dialysis, anemia secondary to CKD, hypertension, hyperlipidemia, diabetes, heart failure. She presents today for chronic care follow-up. She does have some concerns about her stool. Some days about 30 mins after eating she will get diarrhea really bad and feels an urgency and pressure. It improves after she has a BM. Stools are also smaller sometimes. Its not all the time thought. Occurs if she eats out at [employer] and it occurs with the fruit. She does eat fruit at home though every morning for breakfast. No change in appetite and no blood in stool. No night sweats or fevers. She has seen cardiology recently for discussion about transplant list but was told she had heart failure and she was not aware of this. Her blood pressure has been controlled at home on her current medications. She is now on Entresto. She has been having issues with HD due to no access ad it was suggested that she would be a transplant candidate but she is concerned due to her age.. Patient Active Problem List Diagnosis H/O partial nephrectomy End stage renal disease (HCC) Anemia due to stage 5 chronic kidney disease (HCC) COAG (chronic open-angle glaucoma) Essential hypertension Mixed hyperlipidemia Chronic midline low back pain without sciatica Class 1 obesity due to excess calories with serious comorbidity and body mass index (BMI) of 30.0 to 30.9 in adult Type 2 diabetes 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, with long-term current use of insulin (HCC) Gout History of renal cell carcinoma Lipoma of left upper extremity Secondary hyperparathyroidism of renal origin (HCC) S/P arteriovenous (AV) fistula creation (HFpEF) heart failure with preserved ejection fraction (HCC) Numbness and tingling in left hand Arteriovenous fistula, acquired Change in bowel movement Past Surgical History: Procedure Laterality Date COLONOSCOPY N/A 10/18/2021 Procedure: COLONOSCOPY with polypectomy; Surgeon: Chris Stovall MD; [place] [facility] [place] Service: Gastroenterology CV IR INTERVENTIONAL RADIOLOGY N/A 11/14/2021 Procedure: IR DIALYSIS CATHETER INSERTION TUNNELED; Surgeon: Gerhard Walker MD; Location: IR LAB; Service: Interventional Radiology CV IR INTERVENTIONAL RADIOLOGY N/A 06/19/2022 Procedure: VR Fistulagram w/Intervention; Surgeon: Yan Campbell MD; Location: IR LAB; Service: Interventional Radiology CV IR INTERVENTIONAL (more content not included)... [facility] 07-09-2024 History of Present illness Narrative Images from the original note were not included. Leslie Carcamo is a 73 y.o. female Assessment/Plan: Problem List Items Addressed This Visit Endocrine Type 2 diabetes 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, with long-term current use of insulin (HCC) - Primary Chronic, Stable HA1c 5.6, down [facility] 6[facility]4 [facility] Secondary hyperparathyroidism of renal origin (HCC) Chronic secondary to renal failure. She is on HD Calcium is wnl, low vitamin D Last PTH elevated (235). Currently stable. Cardiovascular and Mediastinum (HFpEF) heart failure with preserved ejection fraction (HCC) Chronic, she was concerned about this diagnosis but she has had known pulmonary congestion, edema, increase BNP and diastolic dysfunction, clinical heart failure. She is stable with no signs of fluid overload today. Last echo 11/15/2021 showed LVH, grade 2 diastolic dysfunction. LVEF 68% and + pulmonary Hypertension 59 mmHg. Now seeing amortization clerk at [facility] for renal transplant list. GDMT- Norvasc 10 mg, Carvedilol 25 mg, Entresto, Lasix 80 g daily, hydralazine Additional meds: clonidine patch Medications managed by specialist to avoid any dose confusion Genitourinary End stage renal disease (HCC) Chronic, has a history of nephrectomy due to renal cell carcinoma. Follows with [facility] Dr Liliana Lopez for HD, has RUE- AV graft Labs up to date PTH 235 Calium 9.8 Other Anemia due to stage 5 chronic kidney disease (HCC) Chronic, stable. Currently on iron. Last labs reviewed: H/H .4 Change in bowel movement Not really a new problem, we discussed differentials like certain foods, medications, diverticulitis. Last Colonoscopy- 2021 + Tubular adenoma, diverticulosis, and hemorrhoids. Next colonoscopy due 2026 Recommend adding fiber. Try to avoid the restaurants and fruits that are triggering her symptoms. Strict return precautions include blood in the stool, increase in stool changes, additional symptoms My ongoing relationship with Leslie Carcamo requires continued responsibility and cognitive effort of being the focal point for all services related to chronic condition(s). Return in about 6 months (around 01/06/2025). Leslie Carcamo is a 73 y.o. female who presents for Chief Complaint Patient presents with Diabetes Gap Closure (Health Maintenance) Mammogram due on 08/24/2021 Diabetic Foot Exam due on 01/03/2024 HPI 73 year-old female with a history of end-stage renal disease on dialysis, anemia secondary to CKD, hypertension, hyperlipidemia, diabetes, heart failure. She presents today for chronic care follow-up. She does have some concerns about her stool. Some days about 30 mins after eating she will get diarrhea really bad and feels an urgency and pressure. It improves after she has a BM. Stools are also smaller sometimes. Its not all the time thought. Occurs if she eats out at [employer] and it occurs with the fruit. She does eat fruit at home though every morning for breakfast. No change in appetite and no blood in stool. No night sweats or fevers. She has seen cardiology recently for discussion about transplant list but was told she had heart failure and she was not aware of this. Her blood pressure has been controlled at home on her current medications. She is now on Entresto. She has been having issues with HD due to no access ad it was suggested that she would be a transplant candidate but she is concerned due to her age.. Patient Active Problem List Diagnosis H/O partial nephrectomy End stage renal disease (HCC) Anemia due to stage 5 chronic kidney disease (HCC) COAG (chronic open-angle glaucoma) Essential hypertension Mixed hyperlipidemia Chronic midline low back pain without sciatica Class 1 obesity due to excess calories with serious comorbidity and body mass index (BMI) of 30.0 to 30.9 in adult Type 2 diabetes 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, with long-term current use of insulin (HCC) Gout History of renal cell carcinoma Lipoma of left upper extremity Secondary hyperparathyroidism of renal origin (HCC) S/P arteriovenous (AV) fistula creation (HFpEF) heart failure with preserved ejection fraction (HCC) Numbness and tingling in left hand Arteriovenous fistula, acquired Change in bowel movement Past Surgical History: Procedure Laterality Date COLONOSCOPY N/A 10/18/2021 Procedure: COLONOSCOPY with polypectomy; Surgeon: Chris Stovall MD; [place] [facility] [place] Service: Gastroenterology CV IR INTERVENTIONAL RADIOLOGY N/A 11/14/2021 Procedure: IR DIALYSIS CATHETER INSERTION TUNNELED; Surgeon: Gerhard Walker MD; Location: IR LAB; Service: Interventional Radiology CV IR INTERVENTIONAL RADIOLOGY N/A 06/19/2022 Procedure: VR Fistulagram w/Intervention; Surgeon: Yan Campbell MD; Location: IR LAB; Service: Interventional Radiology CV IR INTERVENTIONAL RADIOLOGY N/A 11/08/2022 Procedure: VR Dialysis Catheter Removal; Surgeon: Froilan Lang MD; Location: IR LAB; Service: Interventional Radiology CV IR INTERVENTIONAL RADIOLOGY N/A 04/02/2023 Procedure: VR Dialysis Cath Insert Tunnel; Surgeon: Matt Mathias PA-C; Location: IR LAB; Service: Interventional Radiology CV IR INTERVENTIONAL RADIOLOGY N/A 06/17/2024 Procedure: VR Dialysis Catheter Removal; Surgeon: Matt Mathias PA-C; Location: IR LAB; Service: Interventional Radiology; Laterality: N/A; dx: N18.6 asa & trulicity continue nkda labs done prior procedure: dialysis catheter removal. RUE permanet access working films: placed 04/02/23 @ caller pt ordering Chris BA N/A 10/18/2021 Procedure: ESOPHAGOGASTRODUODENOSCOPY with biopsy and polypectomy; Surgeon: Chris Stovall MD; Location: [facility]; Service: Gastroenterology fatty tumor removed fibroid removed uterine FISTULA ARTERIOVENOUS Left 04/23/2022 Procedure: Attempted LEFT BRACHIOBASILIC FISTULA CREATION; Surgeon: Yan Campbell MD; Location: Main OR; Service: Gen-Vascular FISTULA ARTERIOVENOUS Left 05/16/2022 Procedure: LEFT UPPER EXTREMITY ARTERIOVENOUS Graft with Propaten PTFE GRAFT INSERTION; Surgeon: Yan Campbell MD; Location: Main OR; Service: Gen-Vascular HERNIA REPAIR HYSTERECTOMY NEPHRECTOMY PARTIAL ROBOTIC XI STAGE 2 Right 03/26/2018 Procedure: RIGHT ROBOTIC ASSISTED LAPAROSCOPIC PARTIAL NEPHRECTOMY LEVEL 2; Surgeon: Nasim Gaspar MD; Location: [facility] Main OR; Service: Urology Family History Problem Relation Age of Onset Hypertension Mother Brain cancer Mother No Known Problems Father Hypertension Sister Heart failure Sister SISTER Lung cancer Brother Hypertension Brother Non-Hodgkin's Lymphoma Daughter Stroke Daughter Hypertension Daughter Surgical complications Neg Hx Anesthesia problems Neg Hx Heart disease Neg Hx Clotting disorder Neg Hx Deep vein thrombosis Neg Hx Pulmonary embolism Neg Hx Social History Tobacco Use Smoking status: Never Smokeless tobacco: Never Vaping Use Vaping status: Never Used Substance Use Topics Alcohol use: Not Currently Comment: socially Drug use: No Current Outpatient Medications Medication Sig Dispense Refill Accu-Chek Guide Glucose Meter Misc USE TEST BLOOD SUGAR 3 TIMES A DAY allopurinoL (ZYLOPRIM) 100 MG tablet Take 1.5 (one and a half) tablets (150 mg total) by mouth daily . amLODIPine (NORVASC) 10 MG tablet Take 1 (one) tablet (10 mg total) by mouth daily AM . aspirin 81 mg chewable tablet Chew and Swallow 1 (one) tablet (81 mg total) daily AM . atorvastatin (LIPITOR) 40 MG tablet Take 1 (one) tablet (40 mg total) by mouth every morning Reasons: high cholesterol. (Patient taking differently: Take 1 (one) tablet (40 mg total) by mouth every morning Takes twice a week Reasons: high cholesterol.) 90 tablet 0 brimonidine (ALPHAGAN) 0.2 % ophthalmic solution Administer 1 (one) drop into the left eye 2 (two) times a day . calcium carbonate (Tums) 200 mg calcium (500 mg) chewable tablet Chew and Swallow 1 (one) tablet (500 mg total) . carvediloL (COREG) 25 MG tablet Take 1 (one) tablet (25 mg total) by mouth 2 (two) times a day with meals . 120 tablet 0 cloNIDine (CATAPRES-TTS) 0.3 mg/[address] 1 (one) patch on the skin once a week . dorzolamide-timoloL (COSOPT) 22.3-6.8 mg/mL ophthalmic solution Administer 1 (one) drop to both eyes 2 (two) times a day . dulaglutide (Trulicity) 1.5 mg/0.5 mL Pen Inject 0.5 mL (1.5 mg total) under the skin once a week . Entresto 97-103 mg per tablet Take 1 (one) tablet by mouth 2 (two) times a day . FreeStyle Lite Strips strips TEST 3 TIMES DAILY DIRECTED 200 strip 2 furosemide (LASIX) 80 MG tablet Take 1 (one) tablet (80 mg total) by mouth daily . hydrALAZINE (APRESOLINE) 50 MG tablet Take 1 (one) tablet (50 mg total) by mouth 2 (two) times a day . insulin degludec (Tresiba FlexTouch U-200) 200 unit/mL (3 mL) InPn Inject 10 (ten) Units under the skin nightly . (Patient taking differently: Inject 10 (ten) Units under the skin nightly Takes 6 units PRN .) 4.5 mL 0 Vitamin D2 1,250 mcg (50,000 unit) capsule 1 (one) capsule (50,000 Units total) every 30 (thirty) days . No current facility-administered medications for this visit. Review of Systems Constitutional: Negative for diaphoresis and fatigue. Respiratory: Negative for chest tightness and shortness of breath. Cardiovascular: Negative for chest pain and palpitations. Gastrointestinal: Positive for diarrhea (intermittently). Negative for abdominal pain and blood in stool. Neurological: Negative for dizziness and headaches. Physical Exam: BP (!) 145/75 (BP Location: Left arm, Patient Position: Sitting, BP Cuff Size: X-large Adult) Pulse 66 Temp 98.5 F (36.9 C) (Oral) Resp 16 Ht 5' 6 Wt 85.1 kg (187 lb 11.2 oz) SpO2 98% BMI 30.30 kg/m Wt Readings from Last 3 Encounters: 07/09/24 85.1 kg (187 lb 11.2 oz) 06/17/24 83.5 kg (184 lb) 05/27/24 85.7 kg (189 lb) BP Readings from Last 3 Encounters: 07/09/24 (!) 145/75 06/17/24 (!) 179/72 05/27/24 125/71 Physical Exam Vitals reviewed. Constitutional: Appearance: Normal appearance. HENT: Head: Normocephalic. Eyes: Conjunctiva/sclera: Conjunctivae normal. Cardiovascular: Rate and Rhythm: Normal rate. Pulmonary: Effort: Pulmonary effort is normal. No respiratory distress. Musculoskeletal: Right lower leg: No edema. Left lower leg: No edema. Neurological: Mental Status: She is alert and oriented to person, place, and time. Gait: Gait normal. Psychiatric: Mood and Affect: Mood normal. Behavior: Behavior normal. Health Maintenance Due Topic Date Due Tetanus: Every 10yrs Never done Dexa Scan Never done Respiratory Syncytial Virus Immunization: Risk, 60-74 Risk, or 75+ (1 - Risk 60-74 years 1-dose series) Never done Mammogram 08/24/2021 Diabetic Foot Exam 01/03/2024 A1C 07/10/2024 Goals Blood Pressure < 130/80 HEMOGLOBIN A1C < 7 Blood sugar levels outside the normal range may be an indicator of diabetes. For any new medications prescribed today, patient was educated about indications for the medication, how to take the medication and potential side effects of the medications. documented in this encounter [facility] 06-23-2024 History of Present illness Narrative Radiology Service Progress Note PATIENT NAME: Leslie Carcamo DATE OF SERVICE: June 23, 2024 TIME: 4:25 PM PATIENT IDENTITY VERIFICATION COMPLETED USING TWO (2) IDENTIFIERS: Name and Date of confirmed by patient verbally. FALL SCREENING: Has the patient had 2 falls in the last year or 1 fall with injury or currently using an Ambulatory Assistive Device (Walker, Cane, Wheelchair, Crutches, etc.)? No PATIENT GENDER DATA: Assigned female at . status: : No status: NO. PATIENT RELEVANT IMPLANT DATA REVIEWED: Not Applicable PATIENT PRESENTS WITH AN IMPLANTABLE OR ATTACHED FISHING ROD MARKER: No RADIOLOGY DEPARTMENT: General X-ray: Exam(s) Completed: Chest X-Ray PERIPHERAL IV DATA: Not applicable SIGNED BY: RT Divina(Glenys) June 23, 2024 4:25 PM documented in this encounter [facility] 06-23-2024 Note HNO ID: [id number] Author: RODNEY PRATHER RT (R) Service: Radiology Author Type: Technologist Type: Progress Notes Filed: 06/23/2024 16:25 Note Text: Radiology Service Progress Note PATIENT NAME: Leslie Carcamo DATE OF SERVICE: June 23, 2024 TIME: 4:25 PM PATIENT IDENTITY VERIFICATION COMPLETED USING TWO (2) IDENTIFIERS: Name and Date of confirmed by patient verbally. FALL SCREENING: Has the patient had 2 falls in the last year or 1 fall with injury or currently using an Ambulatory Assistive Device (Walker, Cane, Wheelchair, Crutches, etc.)? No PATIENT GENDER DATA: Assigned female at . status: : No status: NO. PATIENT RELEVANT IMPLANT DATA REVIEWED: Not Applicable PATIENT PRESENTS WITH AN IMPLANTABLE OR ATTACHED FISHING ROD MARKER: No RADIOLOGY DEPARTMENT: General X-ray: Exam(s) Completed: Chest X-Ray PERIPHERAL IV DATA: Not applicable SIGNED BY: RT Divina(Glenys) June 23, 2024 4:25 PM [facility] 06-23-[address] - 06/23/2024 3:18 PM EST Patient participated in a pre-transplant shared nutrition group class which reviewed the following nutrition principles: Eat 3 meals per day to ensure adequate nutrition. Combine a lean protein with a complex carbohydrate for improved energy levels. Use the healthy plate at mealtimes: 1/4 plate lean protein, 1/4 plate complex carbohydrates, 1/2 plate non starchy vegetables Limit sodium intake to 2000 mg per day. Start reading nutrition labels Choose frozen meals with less than 600 mg sodium per serving. Aim for less than 300 mg sodium per serving on other food products. Choose fresh and frozen fruits and vegetables. If you do choose canned foods, rinse and drain to reduce sodium Avoid adding extra salt to foods when cooking. Consider using salt-free seasonings for added flavor (like Mrs. Dash, garlic powder, onion powder, etc.) Limit restaurant foods. If eating out, consider getting sauces on the side, asking your server administrator to have less salt added to your meal, and limit your portion. Eggs, yogurt, nuts/nut butters, seeds, meat/fish/poultry, cheese, cottage cheese, and yogurt all contain protein. If on dialysis, your body needs more protein. Include protein each time you eat. Consider using a protein shake if this is suggested by your dialysis dietitian (such as Yvan or [employer] Renal). If not on dialysis, your body needs less protein. Consider limiting meat, fish, and poultry to 1 meal daily, no more than the size of a deck of cards. Incorporate plant-based protein, dairy, or eggs for lower protein options at other meals Limit sources of potassium and phosphorous as needed to maintain normal lab values Limit potassium to 2000 mg or less per day. See handout for more info. Limit phosphorous to 800-1000 mg or less per day. See handout for more info. If on dialysis, continue to limit sources of potassium and phosphorus as per your dialysis RD Stay active if able. Aim for 150 minutes of exercise per week. documented in this encounter [facility] 06-23-2024 Note HNO ID: [id number] Author: JUSTIN MAIER RD Service: ? Author Type: Registered Dietitian Type: Progress Notes Filed: 06/23/2024 15:18 Note Text: AMBULATORY PATIENT EDUCATION NOTE - Shared Nutrition Group (In Person) TOPIC:?Pre-kidney transplant nutrition evaluation Malnutrition Screening Significant unintentional weight loss? No Eating less than 75% of usual intake for more than 2 weeks? No Potential Signs of Inflammation: chronic condition READINESS TO LEARN: Cognitive Ability: Alert and oriented Motivation To Learn: Interested Family Support: High - Very involved in pt care Instruction Provided To: Patient and Family member Patient Learns Best By: Multiple Methods Factors Affecting Learning: None Physical Limitations Affecting Learning: None LEARNING RESPONSE Patient/Family verbalizes understanding of pre-operative instructions and correct actions to take to follow pre-operative instructions. Anthropometrics: Height: Last 1 Encounter Ht Readings: Date: Ht: 06/23/2024 167.6 cm (5' 6) Weight: Last 1 Encounter Wt Readings: Date: Wt: 06/23/2024 84.8 kg (186 lb 15.2 oz) Body mass index is 30.17 kg/m?. RMR can't be calculated - Height unrecorded. Last 10 Encounter Wt Readings: Date: Wt: 06/23/2024 84.8 kg (186 lb 15.2 oz) 06/23/2024 84.8 kg (186 lb 15.2 oz)] Nutrition Assessment: Patient presents for nutrition clearance prior to kidney transplant. Optimizing nutritional adequacy will support recovery post-transplant. Nutrition Diagnosis: Behavioral-Environmental: Food and nutrition related knowledge deficit, related to, lack of prior exposure to information , as evidenced by verbalizes incomplete information RECOMMENDED MALNUTRITION DIAGNOSIS: NO MALNUTRITION IDENTIFIED Educational materials provided: Healthy Lunch/Dinner Plate, High Protein Foods, Protein Controlled Diet, Controlling your Potassium Level, Low-Phosphorus Diet GL, and Your Sodium Controlled Diet, Renal Diet Basics, and Body Mass Index and Body Fat None this visit Patient participated in a pre-transplant shared nutrition group class which reviewed the following nutrition principles: Eat 3 meals per day to ensure adequate nutrition. Combine a lean protein with a complex carbohydrate for improved energy levels. Use the healthy plate at mealtimes: 1/4 plate lean protein, 1/4 plate complex carbohydrates, 1/2 plate non starchy vegetables Limit sodium intake to 2000 mg per day. Start reading nutrition labels Choose frozen meals with less than 600 mg sodium per serving. Aim for less than 300 mg sodium per serving on other food products. Choose fresh and frozen fruits and vegetables. If you do choose canned foods, rinse and drain to reduce sodium Avoid adding extra salt to foods when cooking. Consider using salt-free seasonings for added flavor (like Mrs. Dash, garlic powder, onion powder, etc.) Limit restaurant foods. If eating out, consider getting sauces on the side, asking your server administrator to have less salt added to your meal, and limit your portion. Eggs, yogurt, nuts/nut butters, seeds, meat/fish/poultry, cheese, cottage cheese, and yogurt all contain protein. If on dialysis, your body needs more protein. Include protein each time you eat. Consider using a protein shake if this is suggested by your dialysis dietitian (such as Yvan or [employer] Renal). If not on dialysis, your body needs less protein. Consider limiting meat, fish, and poultry to 1 meal daily, no more than the size of a deck of cards. Incorporate plant-based protein, dairy, or eggs for lower protein options at other meals Limit sources of potassium and phosphorous as needed to maintain normal lab values Limit potassium to 2000 mg or less per day. See handout for more info. Limit phosphorous to 800-1000 mg or less per day. See handout for more info. If on dialysis, continue to limit sources of potassium and phosphorus as per your dialysis RD Stay active if able. Aim for 150 minutes of exercise per week. Nutrition Pre-Transplant Assessment No contraindications Patient is to follow-up with in patient nutrition services after surgery. Referred/Supervised by: Transplant/Isiah Consult Billing Type: Ambulatory Group/30 min 1 unit SIGNATURE: Justin Maier RD PATIENT NAME: Leslie Carcamo DATE: June 23, 2024 TIME: 3:17 PM [facility] 06-23-2024 History of Present illness Narrative AMBULATORY PATIENT EDUCATION NOTE - Shared Nutrition Group (In Person) TOPIC:?Pre-kidney transplant nutrition evaluation Malnutrition Screening Significant unintentional weight loss? No Eating less than 75% of usual intake for more than 2 weeks? No Potential Signs of Inflammation: chronic condition READINESS TO LEARN: Cognitive Ability: Alert and oriented Motivation To Learn: Interested Family Support: High - Very involved in pt care Instruction Provided To: Patient and Family member Patient Learns Best By: Multiple Methods Factors Affecting Learning: None Physical Limitations Affecting Learning: None LEARNING RESPONSE Patient/Family verbalizes understanding of pre-operative instructions and correct actions to take to follow pre-operative instructions. Anthropometrics: Height: Last 1 Encounter Ht Readings: Date: Ht: 06/23/2024 167.6 cm (5' 6) Weight: Last 1 Encounter Wt Readings: Date: Wt: 06/23/2024 84.8 kg (186 lb 15.2 oz) Body mass index is 30.17 kg/m . RMR can't be calculated - Height unrecorded. Last 10 Encounter Wt Readings: Date: Wt: 06/23/2024 84.8 kg (186 lb 15.2 oz) 06/23/2024 84.8 kg (186 lb 15.2 oz)] Nutrition Assessment: Patient presents for nutrition clearance prior to kidney transplant. Optimizing nutritional adequacy will support recovery post-transplant. Nutrition Diagnosis: Behavioral-Environmental: Food and nutrition related knowledge deficit, related to, lack of prior exposure to information , as evidenced by verbalizes incomplete information RECOMMENDED MALNUTRITION DIAGNOSIS: NO MALNUTRITION IDENTIFIED Educational materials provided: Healthy Lunch/Dinner Plate, High Protein Foods, Protein Controlled Diet, Controlling your Potassium Level, Low-Phosphorus Diet GL, and Your Sodium Controlled Diet, Renal Diet Basics, and Body Mass Index and Body Fat None this visit Patient participated in a pre-transplant shared nutrition group class which reviewed the following nutrition principles: Eat 3 meals per day to ensure adequate nutrition. Combine a lean protein with a complex carbohydrate for improved energy levels. Use the healthy plate at mealtimes: 1/4 plate lean protein, 1/4 plate complex carbohydrates, 1/2 plate non starchy vegetables Limit sodium intake to 2000 mg per day. Start reading nutrition labels Choose frozen meals with less than 600 mg sodium per serving. Aim for less than 300 mg sodium per serving on other food products. Choose fresh and frozen fruits and vegetables. If you do choose canned foods, rinse and drain to reduce sodium Avoid adding extra salt to foods when cooking. Consider using salt-free seasonings for added flavor (like Mrs. Dash, garlic powder, onion powder, etc.) Limit restaurant foods. If eating out, consider getting sauces on the side, asking your server administrator to have less salt added to your meal, and limit your portion. Eggs, yogurt, nuts/nut butters, seeds, meat/fish/poultry, cheese, cottage cheese, and yogurt all contain protein. If on dialysis, your body needs more protein. Include protein each time you eat. Consider using a protein shake if this is suggested by your dialysis dietitian (such as Yvan or [employer] [facility]). If not on dialysis, your body needs less protein. Consider limiting meat, fish, and poultry to 1 meal daily, no more than the size of a deck of cards. Incorporate plant-based protein, dairy, or eggs for lower protein options at other meals Limit sources of potassium and phosphorous as needed to maintain normal lab values Limit potassium to 2000 mg or less per day. See handout for more info. Limit phosphorous to 800-1000 mg or less per day. See handout for more info. If on dialysis, continue to limit sources of potassium and phosphorus as per your dialysis RD Stay active if able. Aim for 150 minutes of exercise per week. Nutrition Pre-Transplant Assessment No contraindications Patient is to follow-up with in patient nutrition services after surgery. Referred/Supervised by: Transplant/Isiah Consult Billing Type: Ambulatory Group/30 min 1 unit SIGNATURE: Justin Maier RD PATIENT NAME: Leslie Carcamo DATE: June 23, 2024 TIME: 3:17 PM documented in this encounter [facility] 06-23-2024 Instructions Keely Sauceda RN - 06/23/2024 3:13 PM EST Please be aware that your evaluation will not be considered complete until all testing has been submitted. YOU WILL NOT BE LISTED ON THE TRANSPLANT LIST until these results have been received by our office, reviewed by the transplant committee, and approved for transplant. You will be contacted with the decision of the transplant committee at a future date. Some insurance companies require additional testing/clearance such as a drug screen or dental clearance to become active (and stay active) on the transplant waiting list. You are NOT currently listed on the Kidney transplant list. The following is required to complete your transplant evaluation: Cardiac: ECHO - Order will be placed, please schedule and complete. Nuclear stress test - Order will be placed, please schedule and complete. EKG - Order will be placed, please schedule and complete. Cancer Screening: CXR PA & Lat - Order will be placed, please schedule and complete. Additional Consults: No additional consults required at this time. Imaging Studies: No additional imaging required at this time. Miscellaneous: Obtain labs, as ordered. Standard required testing for evaluation AND waitlist (May vary on an individual basis): Chest X-ray: Required every year, due now EKG: Required every year, due now Echocardiogram: Required every 2 years, due now Stress test: Required every 2 years, due now CT Abdomen/Pelvis: Required every 2 years, due 06/23/26 Ongoing Health Maintenance: PAP Smear (Age 21-65): Required every 3-5 years, no longer required Mammogram (Age 40+): Required every year, due 01/27/25 Colonoscopy (Age 45+): Required every 10 years unless abnormal results, due 10/18/26 You are responsible for scheduling your needed testing/consults. Please call [phone] to schedule. If testing is completed outside of [facility], the results & images must be faxed to [phone]. To check on your status for getting presented to Selection Committee, please contact your coordinator, Keely Sauceda RN [phone] via [email or web address] or phone. *You need to follow up with your assigned implementation coordinator once you complete necessary testing. This will ensure that you get presented as soon as possible to the Selection Committee to see if you are a viable candidate for listing. Please review the kidney transplant educational materials online at [email or web address] Sign-in: Kidney If you are looking into multi-listing, please review [email or web address] Select: Kidney (for organ type); this will allow you to compare all hospitals and their results regarding transplant. THONY Lamas, RN Kidney/Pancreas Pre-Wrapper Stemmer Operator [facility] documented in this encounter [facility] 06-23-2024 History of Present illness Narrative Images from the original note were not included. [facility] Urologic and Kidney Chancellor at [facility] Transplant Evaluation CC: Consultation for Kidney transplant evaluation. Referred by: Chris Ford MD ([facility]) [address] [facility] [id number] I will communicate with the referring provider by letter and/or shared electronic medical record. HPI: Leslie Carcamo is a 73 year old female presenting for kidney transplant evaluation. 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 Chronic HD since 11/14/21. Currently in-center HD Saturday and Saturday at [facility] via R AVG placed ~2 months ago at [facility]. Previously had attempted L AVF and L AVG that did not work. Previously had R TDC removed last week. Patient presents ambulatory without assistive devices. Does patient work?: No - Retired Past medical history significant for: HFpEF HTN Gout Right papillary renal cell carcinoma pT1a, pNX (stage I) s/p right nephrectomy 2018 HLD Secondary hyperparathyroidism Vitamin D deficiency Nodule of left thyroid COAG (chronic open-angle glaucoma) Helicobacter pylori-induced gastritis Smoking Status: Never UTI: No Kidney stones: No Pregnancies: Yes If yes, how many?: 3 Miscarriages: No Chronic anti-coagulation: No Midodrine: No What is your blood pressure in between dialysis sessions?: WNL Abdominal surgeries: Yes Hysterectomy Partial R Nephrectomy - 2018 Umbilical Hernia repair - Unsure of mesh ~1970s Cardiovascular Disease?: No Peripheral Arterial Disease (TIA non-embolic, CVA non-embolic, amputation, abnormal PVRs, decreased pulses, etc): Yes - From Dr. Lisa Lopez DPM note 04/22/24: Stroke: No Claudication: No Carotid Artery Stenosis: No DM: Yes Diagnosed at age ~61, Type 2, Therapies: Currently taking Trulicity 0.75 mg weekly and Tresiba 6 units if needed, Secondary complications: hypertension, hyperlipidemia, nephropathy, and peripheral neuropathy, Blood glucose monitoring: Once/day, Hypoglycemia: Yes, Unawareness: No, and Frequency: 1 times per month Last HgbA1C: 05/09/24 - 5.6 Diabetic ulcers or chronic wounds: No Prior transplant: No CKD: Yes: Cause of CKD: DM/HTN Hemodialysis, Start date: 11/14/21 Living Donors: No Residual UO: ~10 ounces Hypercoagulable (hx of DVT/PE, miscarriages, prior use of anticoagulation, etc): No Malignancy (including skin cancer): Yes - RCC 2017 Last hospitalization: 03/26/23 - Arterial steal syndrome BP 130/50 Pulse (!) 59 Temp 36.2 C (97.2 F) (Temporal) Ht 167.6 cm (5' 6) Wt 84.8 kg (186 lb 15.2 oz) SpO2 100% BMI 30.17 kg/m PAST MEDICAL HISTORY Diagnosis Date (HFpEF) heart failure with preserved ejection fraction (HCC) DM2 (diabetes mellitus, type 2) (HCC) Gout Hypertension 36 years Multiple thyroid nodules Renal cell carcinoma (HCC) 2018 Right papillary renal cell carcinoma pT1a, pNX (stage I) s/p right nephrectomy Secondary hyperparathyroidism (HCC) Type 2 diabetes mellitus (HCC) Vitamin D deficiency PAST SURGICAL HISTORY Procedure Laterality Date COLONOSCOPY SCREENING N/A 10/18/2021 Procedure: COLONOSCOPY with polypectomy; Surgeon: Chris Stovall MD; Location: [facility]; Service: Gastroenterology CREATION AVF,DIRECT,ANY SITE Left 04/23/2022 Procedure: Attempted LEFT BRACHIOBASILIC FISTULA CREATION; Surgeon: Yan Campbell MD; Location: Main OR; Service: Gen-Vascular CREATION OF NONAUTOGENOUS AV GRAFT Left 05/16/2022 Procedure: LEFT UPPER EXTREMITY ARTERIOVENOUS Graft with Propaten PTFE GRAFT INSERTION; Surgeon: Yan Campbell MD; Location: Main OR; Service: Gen-Vascular HERNIA REPAIR HX HYSTERECTOMY NEPHRECTOMY PARTIAL Right 03/26/2018 NEPHRECTOMY PARTIAL ROBOTIC XI STAGE 2 Right 03/26/2018 / RIGHT ROBOTIC ASSISTED LAPAROSCOPIC PARTIAL NEPHRECTOMY LEVEL 2; Surgeon: Nasim Gasapr MD; Location: [facility] Main OR; Service: Urology REPAIR UMBILICAL HERNIA 1970s Current Outpatient Medications Medication Sig allopurinol (ZYLOPRIM) 100 mg tablet Take 100 mg by mouth. amLODIPine (NORVASC) 10 mg tablet Take 10 mg by mouth every morning. carvedilol (COREG) 25 mg tablet Take 25 mg by mouth two times a day. dorzolamide-timolol (COSOPT) 22.3-6.8 mg/mL ophthalmic solution PLEASE SEE ATTACHED FOR DETAILED DIRECTIONS ergocalciferol 50,000 unit capsule (VITAMIN D2, DRISDOL) TAKE 1 CAPSULE BY MOUTH ONCE A MONTH furosemide (LASIX) 80 mg tablet Take 80 mg by mouth. cloNIDine TTS (CATAPRES-TTS) 0.3 mg/24 hr Apply 1 Patch as directed one time a week. hydrALAZINE (APRESOLINE) 100 mg tablet Take 100 mg by mouth three times a day. TRESIBA FLEXTOUCH U-100 100 unit/mL (3 mL) injection pen Inject 10 units daily levocetirizine 5 mg tablet Take 5 mg by mouth. ENTRESTO 97-103 mg tablet Take 1 tablet by mouth. fluticasone (FLONASE) 50 mcg/actuation nasal spray Use 2 Sprays in the nose. brimonidine (ALPHAGAN) 0.2 % ophthalmic solution INSTILL 1 DROP LEFT EYE TWICE A DAY INSTILL ONE DROP INTO LEFT EYE TWICE DAILY, NOON AND DINNER calcium carbonate (TUMS) 500 mg chew Take 500 mg by mouth. sucroferric oxyhydroxide (VELPHORO) 500 mg chew Take 500 mg by mouth. HYDROcodone-acetaminophen (NORCO) 5-325 mg per tablet (Patient not taking: Reported on 06/23/2024) triamterene-hydrochlorothiazide (MAXZIDE) 75-50 mg per tablet (Patient not taking: Reported on 06/23/2024) atorvastatin (LIPITOR) 40 mg tablet gabapentin (NEURONTIN) 300 mg capsule (Patient not taking: Reported on 06/23/2024) amLODIPine-Benazepril 10-40 mg per capsule (Patient not taking: Reported on 06/23/2024) timolol maleate (TIMOPTIC) 0.5 % ophthalmic solution Use 1 Drop in both eyes every 12 hours. TRULICITY 1.5 mg/0.5 mL pnij Inject 1 Dose subcutaneously. Once a week latanoprost (XALATAN) 0.005 % ophthalmic solution Use 1 Drop in both eyes daily at bedtime. amLODIPine-benazepril (LOTREL) 5-20 mg per capsule Take 1 capsule by mouth once daily. (Patient not taking: Reported on 06/23/2024) aspirin, enteric coated (ASPIRIN, ENTERIC COATED) 81 mg EC tablet Take 81 mg by mouth once daily. GLIMEPIRIDE ORAL Take by mouth. (Patient not taking: Reported on 06/23/2024) glimepiride (AMARYL) 2 mg tablet Take 2 mg by mouth daily with breakfast. (Patient not taking: Reported on 06/23/2024) No current facility-administered medications for this visit. FAMILY HISTORY Problem Relation Age of Onset Hypertension Mother Brain Cancer Mother No Known Problems Father Heart Failure Sister Hypertension Sister Lung Cancer Brother Hypertension Brother Stroke Daughter Hypertension Daughter other (Non-Hodgkin's Lymphoma) Daughter No Ocular Disease No Family History No family status information on file. Social History Tobacco Use Smoking status: Never Smokeless tobacco: Never Substance Use Topics Alcohol use: Yes Comment: Once/month Drug use: Never Pre-transplant testing: Cardiac: Echocardiogram: Needs to update Nuclear Cardiac Stress Test: Needs to update EKG: Needs to update CXR: Needs to update PAP Test: Completed on 01/22/22, results: Mammogram: Completed on 01/28/24, results: Impression: BI-RADS 1: Negative. Colonoscopy: Completed on 10/18/21, results: Findings: - Two sessile polyps were found in the transverse colon. The polyps were 4 to 5 mm in size. These polyps were removed with a hot snare. Resection and retrieval were complete. - Many small and large-mouthed diverticula were found in the entire colon. - External hemorrhoids were found. The hemorrhoids were small. A. Colon, Transverse, polyp(s), polypectomy: 1. Tubular adenoma. 2. Separate fragment of colonic mucosa with prolapse Per Dr. Chris Stovall: adenomatous colon polyp she will need repeat colonoscopy in 5 years US Thyroid/Parathyroid: Completed on 01/22/24, results: FINDINGS: The right lobe measures 4.4 x 1.7 x 1.8 cm. The left lobe measures 4.8 x 1.9 x 1.6 cm. The isthmus measures 0.4 cm in thickness. RIGHT LOBE NODULES: Nodule 1: Superior pole oval-shaped [id number] solid and cystic nodule with smooth margins and no internal echogenic foci (TR3 nodule) measuring 1.0 x 0.3 x 0.9 cm. Nodule 2: Oval-shaped [id number]-[id number] mixed cystic and solid nodule in the superior pole with no internal echogenic foci (TR3 nodule) measuring 1.7 x 0.5 x 1.4 cm. Nodule 3: Cystic nodule with comet-tail artifact measuring 0.5 cm considered benign. LEFT LOBE NODULES: Several benign cystic nodules. Largest measured is a superior cystic nodule measuring 1.3 x 0.6 x 0.6 cm. THYROID ISTHMUS NODULES: None. IMPRESSION: 1. Benign left lobe cystic nodules. 2. Several right lobe TR3 nodules measuring up to 1.7 cm. The [employer] TI-RADS committee's white paper recommendations for thyroid lesions classified as TR3 are listed below: 1. > than or equal to 1.5 cm. Follow-up ultrasound in 1, 3, and 5 years. 2. > than or equal to 2.5 cm. FNA. JAR/pji Sensitizations: Prior transplant: No Blood transfusions: No : Yes Rabbit: No Immunizations: HBV series: 07/19/1997, 02/12/1997, 01/05/1997 Pneumovax: Not received, patient encouraged to obtain Influenza vaccine: 02/17/2024 Covid vaccine: 07/06/2021, 12/17/2020, 11/27/2020 AGUSTIN LamasN, RN Exclusion criteria for HCV organs (IF POTENTIAL RECIPIENT MEETS ANY OF THESE CRITERIA, THEY ARE EITHER NOT ELIGIBLE, OR THEY MUST SEE HEPATOLOGY FOR INFORMED CONSENT) [] HCV-RNA positive (such individuals may receive HCV donor positive organs, but are not part of this D+/R- program) [] HIV Infection [] Evidence of cirrhosis by imaging or biopsy [] or lactating women [] Prior surgery with altered gastroduodenal anatomy (Gastric bypass, Gastric sleeve) [] Required continued use of certain medications that may interfere with DAA absorption including: [x] Statins [] PPI if dose required is > 20mg per day [] Amiodarone [] Anticonvulsants/mood stabilizers (eg: carbamazepine, phenytoin, oxcarbazine) [] Digoxin [] Current severe systemic infection [] Current illicit drug use Informed Consent for the option of considering an HCV positive organ MUST CHOOSE ONE OF THE OPTIONS BELOW [x] Yes, the patient is interested. Leslie Carcamo wishes to pursue the option of obtaining a HCV positive organ. Advantages and disadvantages of HCV viremic donor transplantation were reviewed. Patient received education on the risk of transmission of HCV following HCV viremic donor transplantation, the natural history of HCV, current therapies for HCV, side effects of therapy, and need for monitoring during and after therapy for HCV. Provided pt with educational slide packet and handout titled Transplantation of Hepatitis C Viremic Organs into Hepatitis C Negative Recipients. The risks of HCV transmission post-transplant, fibrosing cholestatic HCV, treatment failure, chronic HCV, cirrhosis and hepatic and non-hepatic manifestations of acute and chronic HCV were specifically discussed. Patient verbalized understanding of the risks and benefits of receiving a hepatitis C viremic organ and provided verbal consent to be enrolled in the protocol. All their questions were answered. [] No, the patient is not interested in this option. [] The patient would like more time to consider this option. Patient has been educated and can call back regarding accepting or declining this option. Seen by Dr. Monae Staff: I have interviewed the patient and confirmed the historical details above. 73 yo F with h/o ESKD from DM and HTN in the setting of partial R nephrectomy for RCC in 2018. Here w 2 daughters for initial kidney transplant evaluation. Has been on in center HD since 2021. Remains fairly functional. Tolerating dialysis without incident. Approx 12 y history of DM, complicated by PVD. + hernia repair (umbiical) + h/o cystic thyroid gland (biopsies above) REVIEW OF SYSTEMS: GENERAL: No weight loss, malaise or fevers RESPIRATORY: Negative for cough, hemoptysis, wheezing, COPD, dyspnea or shortness of breath CARDIOVASCULAR: Negative for chest pain, leg swelling, hypertension, CHF or palpitations : No history of dysuria, frequency or incontinence SKIN: Negative for lesions, rash, and itching HEMATOLOGY/LYMPHOLOGY: Negative for prolonged bleeding, bruising easily or swollen nodes All other reviewed and negative other than HPI. ID: no chronic or acute infections Hepatitis: No Malignancy (including skin cancer): RCC as above PAOD (TIA non-embolic, CVA non-embolic, amputation, carotid artery stenosis, abnormal PVRs, claudication history, decreased pulses, etc.):No Hypercoagulable (history of DVT/PE, miscarriages, prior use of anticoagulation, etc.):No Functional capacity: 3.0 e.g. light household effort KARNOFSKY INDEX SCALE (Adult patients aged 18 and older) - Used to rate a patient's functional status before and after a medical procedure: 70 - Cares for self: unable to carry on normal activity or do active work. Unable to go to school or work. PHYSICAL EXAMINATION: BP 130/50 Pulse (!) 59 Temp 36.2 C (97.2 F) (Temporal) Ht 167.6 cm (5' 6) Wt 84.8 kg (186 lb 15.2 oz) SpO2 100% BMI 30.17 kg/m Body mass index is 30.17 kg/m . Gen: awake, alert, no distress HEENT: no oral lesions, membranes moist CV: reg no MRG Lungs: clear bilaterally Abd: soft, NT, ND, BS present, no hernias Ext: warm, dry, no LE edema Vasc Access: LAVF present Labs/Studies: pending Impression: 73 year old female here for evaluation of candidacy for transplantation. ESKD 2/2 DM and HTN On hemodialysis Fair candidate for transplant- functional status and engagement during visit moderate We had the opportunity to discuss the following, specific for this patient: Risks and benefits of transplantation including overall average increase in life expectancy and higher quality of life with transplantation for most recipients; Types of donor organs discussed with patient, including Living donor (if appropriate), , expanded criteria, donor cardiac (DCD) and CDC-High risk donor types, with relative benefit of living donation over donor transplantation explained. Exploration of potential donors done with patient; Lengthy discussion regarding Immunosuppression following transplantation. I explained our usual protocols, drugs involved, administration and monitoring. This included the risks of infection, possibly life threatening, and malignancy; Patient expresses understanding of the information discussed. Given her current issues, we plan: 1. Serologies 2. CXR, EKG 3. TTE and Stress testing 4. Repeat thyroid ultrasound in 1 yr from prior (per recs above)- 01/2025 due 5. Consider AN 6. SW eval- lives ~ 1 hr away and depends on daughters for transportation, etc Cancer Screening: Type of Cancer: Screening Criteria: Cervical Females age 21-29: PAP Q3yrs; HPV if PAP abnormal Females age 30-65: PAP & HPV Q5yrs; OR PAP only Q3yrs Breast Females age 20-39: Clinical Breast Exam Q3yrs Females age 40+: Mammogram & Clinical Breast Exam Q1yr Prostate Males age 40+: PSA will be checked at evaluation Colon All patients age 50+: colonoscopy Q10yrs or as recommended based on results Lung Patients meeting all of the following criteria will be scheduled for a Chest CT without Contrast at evaluation if they have not had a Chest CT within the past year: 1. Age 55-74 2. Have at least a 30 pack-year smoking history 3. Are still smoking OR have quit smoking within the last 15 yrs Patients that do not meet the criteria above or who had a Chest CT within the past year will have a CXR PA & Lat at evaluation. Skin All patients: Skin will be examined at evaluation Pharmacy Consult: Not needed at this time Opportunity to ask questions given. Appears to understand. Communication with referring provider done by letter. Babs Monae MD documented in this encounter [facility] 06-23-2024 Note HNO ID: [id number] Author: BABS MONAE MD Service: ? Author Type: Physician Type: Progress Notes Filed: 08/02/2024 21:24 Note Text: Noemi Urologic and Kidney Chancellor at [facility] Transplant Evaluation CC: Consultation for Kidney transplant evaluation. Referred by: Chris Ford MD ([facility]) [address] [facility] [id number] I will communicate with the referring provider by letter and/or shared electronic medical record. HPI: Leslie Carcamo is a 73 year old female presenting for kidney transplant evaluation. 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 Chronic HD since 11/14/21. Currently in-center HD Saturday and Saturday at [facility] via R AVG placed ~2 months ago at [facility]. Previously had attempted L AVF and L AVG that did not work. Previously had R TDC removed last week. Patient presents ambulatory without assistive devices. Does patient work?: No - Retired Past medical history significant for: HFpEF HTN Gout Right papillary renal cell carcinoma pT1a, pNX (stage I) s/p right nephrectomy 2018 HLD Secondary hyperparathyroidism Vitamin D deficiency Nodule of left thyroid COAG (chronic open-angle glaucoma) Helicobacter pylori-induced gastritis Smoking Status: Never UTI: No Kidney stones: No Pregnancies: Yes If yes, how many?: 3 Miscarriages: No Chronic anti-coagulation: No Midodrine: No What is your blood pressure in between dialysis sessions?: WNL Abdominal surgeries: Yes Hysterectomy Partial R Nephrectomy - 2018 Umbilical Hernia repair - Unsure of mesh ~1970s Cardiovascular Disease?: No Peripheral Arterial Disease (TIA non-embolic, CVA non-embolic, amputation, abnormal PVRs, decreased pulses, etc): Yes - From Dr. Lisa Lopez DPM note 04/22/24: Stroke: No Claudication: No Carotid Artery Stenosis: No DM: Yes Diagnosed at age ~61, Type 2, Therapies: Currently taking Trulicity 0.75 mg weekly and Tresiba 6 units if needed, Secondary complications: hypertension, hyperlipidemia, nephropathy, and peripheral neuropathy, Blood glucose monitoring: Once/day, Hypoglycemia: Yes, Unawareness: No, and Frequency: 1 times per month Last HgbA1C: 05/09/24 - 5.6 Diabetic ulcers or chronic wounds: No Prior transplant: No CKD: Yes: Cause of CKD: DM/HTN Hemodialysis, Start date: 11/14/21 Living Donors: No Residual UO: ~10 ounces Hypercoagulable (hx of DVT/PE, miscarriages, prior use of anticoagulation, etc): No Malignancy (including skin cancer): Yes - RCC 2017 Last hospitalization: 03/26/23 - Arterial steal syndrome BP 130/50 Pulse (!) 59 Temp 36.2 ?C (97.2 ?F) (Temporal) Ht 167.6 cm (5' 6) Wt 84.8 kg (186 lb 15.2 oz) SpO2 100% BMI 30.17 kg/m? PAST MEDICAL HISTORY Diagnosis Date (HFpEF) heart failure with preserved ejection fraction (HCC) DM2 (diabetes mellitus, type 2) (HCC) Gout Hypertension 35 years Multiple thyroid nodules Renal cell carcinoma (HCC) 2018 Right papillary renal cell carcinoma pT1a, pNX (stage I) s/p right nephrectomy Secondary hyperparathyroidism (HCC) Type 2 diabetes mellitus (HCC) Vitamin D deficiency PAST SURGICAL HISTORY Procedure Laterality Date COLONOSCOPY SCREENING N/A 10/18/2021 Procedure: COLONOSCOPY with polypectomy; Surgeon: Chris Stovall MD; Location: [facility]; Service: Gastroenterology CREATION AVF,DIRECT,ANY SITE Left 04/23/2022 Procedure: Attempted LEFT BRACHIOBASILIC FISTULA CREATION; Surgeon: Yan Campbell MD; Location: Main OR; Service: Gen-Vascular CREATION OF NONAUTOGENOUS AV GRAFT Left 05/16/2022 Procedure: LEFT UPPER EXTREMITY ARTERIOVENOUS Graft with Propaten PTFE GRAFT INSERTION; Surgeon: Yan Campbell MD; Location: Main OR; Service: Gen-Vascular HERNIA REPAIR HX HYSTERECTOMY NEPHRECTOMY PARTIAL Right 03/26/2018 NEPHRECTOMY PARTIAL ROBOTIC XI STAGE 2 Right 03/26/2018 / RIGHT ROBOTIC ASSISTED LAPAROSCOPIC PARTIAL NEPHRECTOMY LEVEL 2; Surgeon: Nasim Gaspar MD; Location: [facility] Main OR; Service: Urology REPAIR UMBILICAL HERNIA 1970s Current Outpatient Medications Medication Sig allopurinol (ZYLOPRIM) 100 mg tablet Take 100 mg by mouth. amLODIPine (NORVASC) 10 mg tablet Take 10 mg by mouth every morning. carvedilol (COREG) 25 mg tablet Take 25 mg by mouth two times a day. dorzolamide-timolol (COSOPT) 22.3-6.8 mg/mL ophthalmic solution PLEASE SEE ATTACHED FOR DETAILED DIRECTIONS ergocalciferol 50,000 unit capsule (VITAMIN D2, DRISDOL) TAKE 1 CAPSULE BY MOUTH ONCE A MONTH furosemide (LASIX) 80 mg tablet Take 80 mg by mouth. cloNIDine TTS (CATAPRES-TTS) 0.3 mg/24 hr Apply 1 Patch as directed one time a week. hydrALAZINE (APRESOLINE) 100 mg tablet Take 100 mg by mouth three times a day. TRESIBA FLEXTOUCH U-100 100 unit/mL (3 mL) injection pen Inject 10 units daily levocetirizine 5 mg tablet Take 5 mg by mouth. ENTRESTO 97-103 mg tablet Take 1 tablet by mouth. fluticasone (FLONASE) 50 (more content not included)... [facility] 06-23-2024 Note HNO ID: [id number] Author: DESIREE SHIPLEY LSW Service: ? Author Type: Cottage Master Type: Progress Notes Filed: 07/21/2024 16:30 Note Text: PSYCHOSOCIAL EVALUATION FOR KIDNEY TRANSPLANT Social Supports: Patients daughters (both present for the evaluation) Financial Concerns: [employer] Medicare. She is retired. Compliance: The patient shows moderate compliance through dialysis - it was reported the patient does not let the dialysis team remove all fluid available and she has struggled with her phosphorous levels. Mental Health: Stable Substance Use: Denies SIPAT: 20 REFERRAL: Leslie Carcamo was referred to Social Work for a psychosocial evaluation to establish if she would be a suitable candidate to receive a kidney transplant. Race/Gender: Black or , Female Black or [] [] ([place]) [][place] [][place] [x]Black or : Other [place] Citizen: Yes DIALYSIS START DATE: November 2021 The name of the dialysis unit is [facility]. The phone is [phone]. This social work psychosocial evaluation was completed with Leslie Carcamo on June 23, 2024. She was accompanied by her daughters, Leon and Radha. The pt does not use assistive devices for ambulation. IDENTIFYING INFORMATION/LIVING SITUATION Leslie Carcamo [id number] [address] [place] [address]. The home is a [address] [facility]. Household members: Patient lives alone There is 1 licensed drivers in the home and 1 working vehicles. The patients daughter drove them to the appointments today. Are you aware that all post-transplant appointments will be at [facility]? Yes. How do you plan to come to the [facility] after transplant? The patient and the family will need to discuss what the patients caregiver support plan will be for post transplant. After reviewed outline of recovery and caregiver responsibilities both of the patients daughters were willing to be listed as caregivers. Caregiver responsibilities: No Pets in the home: No COMPREHENSION OF MEDICAL SITUATION Leslie Carcamo reports that her kidney disease is due to diabetes and high blood pressure. The patient was diagnosed with diabetes 12 years ago. In early 2021 her PCP told her she needed to see a hand tube winder because her kidney function was declining. The patient explained when she first started dialysis she had a transplant consultation with [facility] and she did not feel emotionally ready for transplant - explained her cousin had after having a transplant. She feels she is more emotionally ready now. She is feeling draining being on dialysis. HEALTH Pregancies (females): 3 prengancies - 3 children COMPLIANCE Missed doctor appointments: No issues reported. Missed/shortened/rescheduled dialysis appointments: No issues reported. Knowledge of medications: The patient has a good knowledge of her medications and their purpose. Medication Compliance: No issues reported. The patient explained she takes her medications out of the bottle and remembering to take them is part of her routine. Have you ever stopped taking any medication because you lost your insurance you could not afford it? No Have you stopped taking medication because you felt you didn't need it or because of side-effects? No Dialysis compliance check: 07/21/2024 Transplant social media developer called patients dialysis center and spoke with RNJonathan. The dialysis nurse explained the patient comes for her treatments and stays for her full sessions. When asked about whether the patient follows recommendations the nurse explained the patient does not let the dialysis team remove all fluid available. Labs reported: phosphorous 6.5 (previous month 7.0, 7.4) potassium 4.4 albumin 3.9 Potential living donors: No SUBSTANCE USE/ABUSE Alcohol: The patient reports she may have 1 glass of wine once a month. Tobacco: No Exposure to second hand smoke: No Cocaine, THC, Heroin, or Other Recreational Drug Use: No Over the Counter Medications: No Opioids/Controlled Substances: No LEGAL ENCOUNTERS History of any legal issues: No MENTAL HEALTH HISTORY Affect: Appropriate/Consistent Alert: Alert Orientation: person, place and time Appearance: Unremarkable/appropriate Cognitive Function: Cognition appears relatively intact Mood: Euthymic Are you having thoughts that you would be better off , or of hurting yourself in some way? No Current mental health diagnoses / current feelings of anxiety or depression: Denies any current symptoms of anxiety or depression. Previous mental health diagnoses: No Psychiatric medication: No. Who prescribes: No Counseling: No Psychiatric services: No History of suicide attempt(s) or ideation: No History of harming self: No History of harming others: No History of psychiatric hospitalization: N (more content not included)... [facility] 06-23-2024 History of Present illness Narrative PSYCHOSOCIAL EVALUATION FOR KIDNEY TRANSPLANT Social Supports: Patients daughters (both present for the evaluation) Financial Concerns: [employer] Medicare. She is retired. Compliance: The patient shows moderate compliance through dialysis - it was reported the patient does not let the dialysis team remove all fluid available and she has struggled with her phosphorous levels. Mental Health: Stable Substance Use: Denies SIPAT: 20 REFERRAL: Leslie Carcamo was referred to Social Work for a psychosocial evaluation to establish if she would be a suitable candidate to receive a kidney transplant. Race/Gender: Black or , Female Black or [] [] ([place]) [][place] [][place] [x]Black or : Other [place] Citizen: Yes DIALYSIS START DATE: November 2021 The name of the dialysis unit is [facility]. The phone is [phone]. This social work psychosocial evaluation was completed with Leslie Carcamo on June 23, 2024. She was accompanied by her daughters, Leon and Radha. The pt does not use assistive devices for ambulation. IDENTIFYING INFORMATION/LIVING SITUATION Leslie Carcamo [phone] [address] [place] [address]. The home is a [address] [facility]. Household members: Patient lives alone There is 1 licensed drivers in the home and 1 working vehicles. The patients daughter drove them to the appointments today. Are you aware that all post-transplant appointments will be at [facility]? Yes. How do you plan to come to the [facility] after transplant? The patient and the family will need to discuss what the patients caregiver support plan will be for post transplant. After reviewed outline of recovery and caregiver responsibilities both of the patients daughters were willing to be listed as caregivers. Caregiver responsibilities: No Pets in the home: No COMPREHENSION OF MEDICAL SITUATION Leslie Carcamo reports that her kidney disease is due to diabetes and high blood pressure. The patient was diagnosed with diabetes 12 years ago. In early 2021 her PCP told her she needed to see a hand tube winder because her kidney function was declining. The patient explained when she first started dialysis she had a transplant consultation with [facility] and she did not feel emotionally ready for transplant - explained her cousin had after having a transplant. She feels she is more emotionally ready now. She is feeling draining being on dialysis. HEALTH Pregancies (females): 3 prengancies - 3 children COMPLIANCE Missed doctor appointments: No issues reported. Missed/shortened/rescheduled dialysis appointments: No issues reported. Knowledge of medications: The patient has a good knowledge of her medications and their purpose. Medication Compliance: No issues reported. The patient explained she takes her medications out of the bottle and remembering to take them is part of her routine. Have you ever stopped taking any medication because you lost your insurance you could not afford it? No Have you stopped taking medication because you felt you didn't need it or because of side-effects? No Dialysis compliance check: 07/21/2024 Transplant social media developer called patients dialysis center and spoke with RN, Jonathan. The dialysis nurse explained the patient comes for her treatments and stays for her full sessions. When asked about whether the patient follows recommendations the nurse explained the patient does not let the dialysis team remove all fluid available. Labs reported: phosphorous 6.5 (previous month 7.0, 7.4) potassium 4.4 albumin 3.9 Potential living donors: No SUBSTANCE USE/ABUSE Alcohol: The patient reports she may have 1 glass of wine once a month. Tobacco: No Exposure to second hand smoke: No Cocaine, THC, Heroin, or Other Recreational Drug Use: No Over the Counter Medications: No Opioids/Controlled Substances: No LEGAL ENCOUNTERS History of any legal issues: No MENTAL HEALTH HISTORY Affect: Appropriate/Consistent Alert: Alert Orientation: person, place and time Appearance: Unremarkable/appropriate Cognitive Function: Cognition appears relatively intact Mood: Euthymic Are you having thoughts that you would be better off , or of hurting yourself in some way? No Current mental health diagnoses / current feelings of anxiety or depression: Denies any current symptoms of anxiety or depression. Previous mental health diagnoses: No Psychiatric medication: No. Who prescribes: No Counseling: No Psychiatric services: No History of suicide attempt(s) or ideation: No History of harming self: No History of harming others: No History of psychiatric hospitalization: No Is a referral to Transplant Psychiatry indicated for further evaluation or screening: No EDUCATION Highest Educational Level: High school Reading/Comprehension Problems Then or Now: No HEALTH INSURANCE/FINANCIAL Medical Insurance: [facility] Medicare Payer of Insurance: Patient Prescription Coverage: Medicare Insurance Policy Johnson: Patient Medicare Status: Medicare - age related Employment status: Retired. The patient retired in 2013 from working for the [employer]. Household Income: $2500 per month (Social security and fci) Pt was given a list of the medications for Kidney [place] recipients to learn how her insurance coverage applies. SW informed pt that she must be prepared to cover the copays of her immunosuppression and anti viral medications. CAREGIVER/SUPPORT PLAN Primary Caregiver: chiquis Quintero daughter. 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 Contact Number: [phone] Health Status and Availability of Caregiver: good health, can take time off of work Valid Postpartum Rn's License/Working Vehicle: Yes, yes Caregiver Substance Use: No Caregiver Mental Health: No Secondary Caregiver: chiquis Garcia daughter. 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 Contact Number: [phone] Health Status and Availability: good health, will take time off of work Valid Postpartum Rn's License/Working Vehicle: Yes, yes Caregiver Substance Use: No Caregiver Mental Health: No PSYCHOSOCIAL RISKS Adherence to Treatment Protocols: Yes Ability to Understand Transplant Center's System of Care: Yes Active Psychiatric Diagnosis: No Financial Resources or Support: Yes Body Image/Scar: No IMPRESSIONS/RECOMMENDATIONS At this time, Leslie Carcamo appears to be a moderate risk psychosocial candidate for a kidney transplant due to her moderate compliance through dialysis. There are minor psychosocial concerns that could have a negative impact on the successful and sustained outcome of a kidney transplant. The patient will have caregiver support from her daughters. She has [facility] Medicare for health insurance. Transplant social media developer encouraged the patient to investigate potential transplant medication co-pays. She is retired. The patient shows moderate compliance through dialysis - it was reported the patient does not let the dialysis team remove all fluid available and she has struggled with her phosphorous levels. There were no mental health or substance use barriers identified. The patient presented as quite and somewhat of a poor historian. She had to rely on her daughters to respond to evaluation questions. The patient should be scheduled for yearly visits and/or phone contact with social work for the following purposes: to review health insurance, changes of caregiver support, changes in financial/employment status, and past or current issues with alcohol or drug use. We reviewed the follow up care sequence, including lab work twice a week and weekly post transplant clinic appointments. We discussed the precautions to take because of being immunosuppressed. Leslie Carcamo was advised that it is imperative to adhere to the medical regimen and recovery restrictions. Leslie Carcamo indicated understanding of this information. Leslie Carcamo had the opportunity to discuss any issues and questions. Patient was given information and brochures about the kidney transplant process and fund raising options. The patient was given the phone number of the transplant social media developer to address future concerns. JESUS Brown, KING, CCTSW Transplant Cottage Master documented in this encounter [facility] 06-23-2024 Note HNO ID: [id number] Author: CHIARA KIDD MD Service: ? Author Type: Physician Type: Progress Notes Filed: 06/27/2024 19:28 Note Text: Noemi Urologic and Kidney Chancellor at [facility] Transplant Evaluation CC: Consultation for Kidney transplant evaluation. Referred by: Chris Ford MD ([facility]) [address] [facility] [id number] I will communicate with the referring provider by letter and/or shared electronic medical record. HPI: Leslie Carcamo is a 73 year old female presenting for kidney transplant evaluation. 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 Chronic HD since 11/14/21. Currently in-center HD Saturday and Saturday at [facility] via R AVG placed ~2 months ago at [facility]. Previously had attempted L AVF and L AVG that did not work. Previously had R TDC removed last week. Patient presents ambulatory without assistive devices. In this OV we know that: - On dialysis since 2021 - Diabetic and takes insulin - No WA or stroke - Still makes urine - robotic nephrectomy Has been on HD x 2 years Waited as she was not sure BP 130/50 Pulse (!) 59 Temp 36.2 ?C (97.2 ?F) (Temporal) Ht 167.6 cm (5' 6) Wt 84.8 kg (186 lb 15.2 oz) SpO2 100% BMI 30.17 kg/m? Does patient work?: No - Retired Past medical history significant for: HFpEF HTN Gout Right papillary renal cell carcinoma pT1a, pNX (stage I) s/p right nephrectomy 2018 HLD Secondary hyperparathyroidism Vitamin D deficiency Nodule of left thyroid COAG (chronic open-angle glaucoma) Helicobacter pylori-induced gastritis Smoking Status: Never UTI: No Kidney stones: No Pregnancies: Yes If yes, how many?: 3 Miscarriages: No Chronic anti-coagulation: No Midodrine: No What is your blood pressure in between dialysis sessions?: WNL Abdominal surgeries: Yes Hysterectomy Partial R Nephrectomy - 2018 Umbilical Hernia repair - Unsure of mesh ~1970s Cardiovascular Disease?: No Peripheral Arterial Disease (TIA non-embolic, CVA non-embolic, amputation, abnormal PVRs, decreased pulses, etc): Yes - From Dr. Lisa Lopez DPM note 04/22/24: Stroke: No Claudication: No Carotid Artery Stenosis: No DM: Yes Diagnosed at age ~61, Type 2, Therapies: Currently taking Trulicity 0.75 mg weekly and Tresiba 6 units if needed, Secondary complications: hypertension, hyperlipidemia, nephropathy, and peripheral neuropathy, Blood glucose monitoring: Once/day, Hypoglycemia: Yes, Unawareness: No, and Frequency: 1 times per month Last HgbA1C: 05/09/24 - 5.6 Diabetic ulcers or chronic wounds: No Prior transplant: No CKD: Yes: Cause of CKD: DM/HTN Hemodialysis, Start date: 11/14/21 Living Donors: No Residual UO: ~10 ounces Hypercoagulable (hx of DVT/PE, miscarriages, prior use of anticoagulation, etc): No Malignancy (including skin cancer): Yes - RCC 2017 Last hospitalization: 03/26/23 - Arterial steal syndrome BP 130/50 Pulse (!) 59 Temp 36.2 ?C (97.2 ?F) (Temporal) Ht 167.6 cm (5' 6) Wt 84.8 kg (186 lb 15.2 oz) SpO2 100% BMI 30.17 kg/m? PAST MEDICAL HISTORY Diagnosis Date (HFpEF) heart failure with preserved ejection fraction (HCC) Chronic open angle glaucoma DM2 (diabetes mellitus, type 2) (HCC) Gout Helicobacter pylori gastritis HLD (hyperlipidemia) Hypertension 35 years Multiple thyroid nodules Renal cell carcinoma (HCC) 2018 Right papillary renal cell carcinoma pT1a, pNX (stage I) s/p right nephrectomy Secondary hyperparathyroidism (HCC) Type 2 diabetes mellitus (HCC) Vitamin D deficiency PAST SURGICAL HISTORY Procedure Laterality Date COLONOSCOPY SCREENING N/A 10/18/2021 Procedure: COLONOSCOPY with polypectomy; Surgeon: Chris Stovall MD; Location: [facility]; Service: Gastroenterology CREATION AVF,DIRECT,ANY SITE Left 04/23/2022 Procedure: Attempted LEFT BRACHIOBASILIC FISTULA CREATION; Surgeon: Yan Campbell MD; Location: Main OR; Service: Gen-Vascular CREATION OF NONAUTOGENOUS AV GRAFT Left 05/16/2022 Procedure: LEFT UPPER EXTREMITY ARTERIOVENOUS Graft with Propaten PTFE GRAFT INSERTION; Surgeon: Yan Campbell MD; Location: Main OR; Service: Gen-Vascular HERNIA REPAIR HX HYSTERECTOMY NEPHRECTOMY PARTIAL Right 03/26/2018 NEPHRECTOMY PARTIAL ROBOTIC XI STAGE 2 Right 03/26/2018 / RIGHT ROBOTIC ASSISTED LAPAROSCOPIC PARTIAL NEPHRECTOMY LEVEL 2; Surgeon: Nasim Gaspar MD; Location: [facility] Main OR; Service: Urology REPAIR UMBILICAL HERNIA 1970s Current Outpatient Medications Medication Sig allopurinol (ZYLOPRIM) 100 mg tablet Take 100 mg by mouth. amLODIPine (NORVASC) 10 mg tablet Take 10 mg by mouth every morning. carvedilol (COREG) 25 mg tablet Take 25 mg by mouth two times a day. dorzolamide-timolol (COSOPT) 22.3-6.8 mg/mL ophthalmic solution PLEASE SEE ATTACHED FOR DETAILED DIRECTIONS ergocalciferol 50,000 unit capsule (VITAMIN D2, DRISDOL) TAKE 1 CAPSULE BY MOUTH ONCE A M (more content not included)... [facility] 06-23-2024 History of Present illness Narrative Images from the original note were not included. [facility] Urologic and Kidney Chancellor at [facility] Transplant Evaluation CC: Consultation for Kidney transplant evaluation. Referred by: Chris Ford MD ([facility]) [address] [facility] [id number] I will communicate with the referring provider by letter and/or shared electronic medical record. HPI: Leslie Carcamo is a 73 year old female presenting for kidney transplant evaluation. 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 Chronic HD since 11/14/21. Currently in-center HD Saturday and Saturday at [facility] via R AVG placed ~2 months ago at [facility]. Previously had attempted L AVF and L AVG that did not work. Previously had R TDC removed last week. Patient presents ambulatory without assistive devices. In this OV we know that: - On dialysis since 2021 - Diabetic and takes insulin - No WA or stroke - Still makes urine - robotic nephrectomy Has been on HD x 2 years Waited as she was not sure BP 130/50 Pulse (!) 59 Temp 36.2 C (97.2 F) (Temporal) Ht 167.6 cm (5' 6) Wt 84.8 kg (186 lb 15.2 oz) SpO2 100% BMI 30.17 kg/m Does patient work?: No - Retired Past medical history significant for: HFpEF HTN Gout Right papillary renal cell carcinoma pT1a, pNX (stage I) s/p right nephrectomy 2017 HLD Secondary hyperparathyroidism Vitamin D deficiency Nodule of left thyroid COAG (chronic open-angle glaucoma) Helicobacter pylori-induced gastritis Smoking Status: Never UTI: No Kidney stones: No Pregnancies: Yes If yes, how many?: 3 Miscarriages: No Chronic anti-coagulation: No Midodrine: No What is your blood pressure in between dialysis sessions?: WNL Abdominal surgeries: Yes Hysterectomy Partial R Nephrectomy - 2018 Umbilical Hernia repair - Unsure of mesh ~ Cardiovascular Disease?: No Peripheral Arterial Disease (TIA non-embolic, CVA non-embolic, amputation, abnormal PVRs, decreased pulses, etc): Yes - From Dr. Lisa Lopez DPM note 04/22/24: Stroke: No Claudication: No Carotid Artery Stenosis: No DM: Yes Diagnosed at age ~61, Type 2, Therapies: Currently taking Trulicity 0.75 mg weekly and Tresiba 6 units if needed, Secondary complications: hypertension, hyperlipidemia, nephropathy, and peripheral neuropathy, Blood glucose monitoring: Once/day, Hypoglycemia: Yes, Unawareness: No, and Frequency: 1 times per month Last HgbA1C: 05/09/24 - 5.6 Diabetic ulcers or chronic wounds: No Prior transplant: No CKD: Yes: Cause of CKD: DM/HTN Hemodialysis, Start date: 11/14/21 Living Donors: No Residual UO: ~10 ounces Hypercoagulable (hx of DVT/PE, miscarriages, prior use of anticoagulation, etc): No Malignancy (including skin cancer): Yes - RCC 2017 Last hospitalization: 03/26/23 - Arterial steal syndrome BP 130/50 Pulse (!) 59 Temp 36.2 C (97.2 F) (Temporal) Ht 167.6 cm (5' 6) Wt 84.8 kg (186 lb 15.2 oz) SpO2 100% BMI 30.17 kg/m PAST MEDICAL HISTORY Diagnosis Date (HFpEF) heart failure with preserved ejection fraction (HCC) Chronic open angle glaucoma DM2 (diabetes mellitus, type 2) (HCC) Gout Helicobacter pylori gastritis HLD (hyperlipidemia) Hypertension 35 years Multiple thyroid nodules Renal cell carcinoma (HCC) 2018 Right papillary renal cell carcinoma pT1a, pNX (stage I) s/p right nephrectomy Secondary hyperparathyroidism (HCC) Type 2 diabetes mellitus (HCC) Vitamin D deficiency PAST SURGICAL HISTORY Procedure Laterality Date COLONOSCOPY SCREENING N/A 10/18/2021 Procedure: COLONOSCOPY with polypectomy; Surgeon: Chris Stovall MD; [place] [facility]; Service: Gastroenterology CREATION AVF,DIRECT,ANY SITE Left 04/23/2022 Procedure: Attempted LEFT BRACHIOBASILIC FISTULA CREATION; Surgeon: Yan Campbell MD; Location: Main OR; Service: Gen-Vascular CREATION OF NONAUTOGENOUS AV GRAFT Left 05/16/2022 Procedure: LEFT UPPER EXTREMITY ARTERIOVENOUS Graft with Propaten PTFE GRAFT INSERTION; Surgeon: Yan Campbell MD; Location: Main OR; Service: Gen-Vascular HERNIA REPAIR HX HYSTERECTOMY NEPHRECTOMY PARTIAL Right 03/26/2018 NEPHRECTOMY PARTIAL ROBOTIC XI STAGE 2 Right 03/26/2018 / RIGHT ROBOTIC ASSISTED LAPAROSCOPIC PARTIAL NEPHRECTOMY LEVEL 2; Surgeon: Nasim Gaspar MD; Location: [facility] Main OR; Service: Urology REPAIR UMBILICAL HERNIA 1970s Current Outpatient Medications Medication Sig allopurinol (ZYLOPRIM) 100 mg tablet Take 100 mg by mouth. amLODIPine (NORVASC) 10 mg tablet Take 10 mg by mouth every morning. carvedilol (COREG) 25 mg tablet Take 25 mg by mouth two times a day. dorzolamide-timolol (COSOPT) 22.3-6.8 mg/mL ophthalmic solution PLEASE SEE ATTACHED FOR DETAILED DIRECTIONS ergocalciferol 50,000 unit capsule (VITAMIN D2, DRISDOL) TAKE 1 CAPSULE BY MOUTH ONCE A MONTH furosemide (LASIX) 80 mg tablet Take 80 mg by mouth. cloNIDine TTS (CATAPRES-TTS) 0.3 mg/24 hr Apply 1 Patch as directed one time a week. hydrALAZINE (APRESOLINE) 100 mg tablet Take 100 mg by mouth three times a day. TRESIBA FLEXTOUCH U-100 100 unit/mL (3 mL) injection pen Inject 10 units daily levocetirizine 5 mg tablet Take 5 mg by mouth. ENTRESTO 97-103 mg tablet Take 1 tablet by mouth. fluticasone (FLONASE) 50 mcg/actuation nasal spray Use 2 Sprays in the nose. brimonidine (ALPHAGAN) 0.2 % ophthalmic solution INSTILL 1 DROP LEFT EYE TWICE A DAY INSTILL ONE DROP INTO LEFT EYE TWICE DAILY, NOON AND DINNER calcium carbonate (TUMS) 500 mg chew Take 500 mg by mouth. sucroferric oxyhydroxide (VELPHORO) 500 mg chew Take 500 mg by mouth. HYDROcodone-acetaminophen (NORCO) 5-325 mg per tablet (Patient not taking: Reported on 06/23/2024) triamterene-hydrochlorothiazide (MAXZIDE) 75-50 mg per tablet (Patient not taking: Reported on 06/23/2024) atorvastatin (LIPITOR) 40 mg tablet gabapentin (NEURONTIN) 300 mg capsule (Patient not taking: Reported on 06/23/2024) amLODIPine-Benazepril 10-40 mg per capsule (Patient not taking: Reported on 06/23/2024) timolol maleate (TIMOPTIC) 0.5 % ophthalmic solution Use 1 Drop in both eyes every 12 hours. TRULICITY 1.5 mg/0.5 mL pnij Inject 1 Dose subcutaneously. Once a week latanoprost (XALATAN) 0.005 % ophthalmic solution Use 1 Drop in both eyes daily at bedtime. amLODIPine-benazepril (LOTREL) 5-20 mg per capsule Take 1 capsule by mouth once daily. (Patient not taking: Reported on 06/23/2024) aspirin, enteric coated (ASPIRIN, ENTERIC COATED) 81 mg EC tablet Take 81 mg by mouth once daily. GLIMEPIRIDE ORAL Take by mouth. (Patient not taking: Reported on 06/23/2024) glimepiride (AMARYL) 2 mg tablet Take 2 mg by mouth daily with breakfast. (Patient not taking: Reported on 06/23/2024) No current facility-administered medications for this visit. FAMILY HISTORY Problem Relation Age of Onset Hypertension Mother Brain Cancer Mother No Known Problems Father Heart Failure Sister Hypertension Sister Lung Cancer Brother Hypertension Brother Stroke Daughter Hypertension Daughter other (Non-Hodgkin's Lymphoma) Daughter No Ocular Disease No Family History No family status information on file. Social History Tobacco Use Smoking status: Never Smokeless tobacco: Never Substance Use Topics Alcohol use: Yes Comment: Once/month Drug use: Never Pre-transplant testing: Cardiac: Echocardiogram: Needs to update Nuclear Cardiac Stress Test: Needs to update EKG: Needs to update CXR: Needs to update PAP Test: Completed on 01/22/22, results: Mammogram: Completed on 01/28/24, results: Impression: BI-RADS 1: Negative. Colonoscopy: Completed on 10/18/21, results: Findings: - Two sessile polyps were found in the transverse colon. The polyps were 4 to 5 mm in size. These polyps were removed with a hot snare. Resection and retrieval were complete. - Many small and large-mouthed diverticula were found in the entire colon. - External hemorrhoids were found. The hemorrhoids were small. A. Colon, Transverse, polyp(s), polypectomy: 1. Tubular adenoma. 2. Separate fragment of colonic mucosa with prolapse Per Dr. Chris Stovall: adenomatous colon polyp she will need repeat colonoscopy in 5 years US Thyroid/Parathyroid: Completed on 01/22/24, results: FINDINGS: The right lobe measures 4.4 x 1.7 x 1.8 cm. The left lobe measures 4.8 x 1.9 x 1.6 cm. The isthmus measures 0.4 cm in thickness. RIGHT LOBE NODULES: Nodule 1: Superior pole oval-shaped [id number] solid and cystic nodule with smooth margins and no internal echogenic foci (TR3 nodule) measuring 1.0 x 0.3 x 0.9 cm. Nodule 2: Oval-shaped [id number] mixed cystic and solid nodule in the superior pole with no internal echogenic foci (TR3 nodule) measuring 1.7 x 0.5 x 1.4 cm. Nodule 3: Cystic nodule with comet-tail artifact measuring 0.5 cm considered benign. LEFT LOBE NODULES: Several benign cystic nodules. Largest measured is a superior cystic nodule measuring 1.3 x 0.6 x 0.6 cm. THYROID ISTHMUS NODULES: None. IMPRESSION: 1. Benign left lobe cystic nodules. 2. Several right lobe TR3 nodules measuring up to 1.7 cm. The [employer] TI-RADS committee's white paper recommendations for thyroid lesions classified as TR3 are listed below: 1. > than or equal to 1.5 cm. Follow-up ultrasound in 1, 3, and 5 years. 2. > than or equal to 2.5 cm. FNA. JAR/pji Sensitizations: Prior transplant: No Blood transfusions: No : Yes Rabbit: No Immunizations: HBV series: 07/19/1997, 02/12/1997, 01/05/1997 Pneumovax: Not received, patient encouraged to obtain Influenza vaccine: 02/17/2024 Covid vaccine: 07/06/2021, 12/17/2020, 11/27/2020 Keely Sauceda, AGUSTINN, RN Exclusion criteria for HCV organs (IF POTENTIAL RECIPIENT MEETS ANY OF THESE CRITERIA, THEY ARE EITHER NOT ELIGIBLE, OR THEY MUST SEE HEPATOLOGY FOR INFORMED CONSENT) [] HCV-RNA positive (such individuals may receive HCV donor positive organs, but are not part of this D+/R- program) [] HIV Infection [] Evidence of cirrhosis by imaging or biopsy [] or lactating women [] Prior surgery with altered gastroduodenal anatomy (Gastric bypass, Gastric sleeve) [] Required continued use of certain medications that may interfere with DAA absorption including: [x] Statins [] PPI if dose required is > 20mg per day [] Amiodarone [] Anticonvulsants/mood stabilizers (eg: carbamazepine, phenytoin, oxcarbazine) [] Digoxin [] Current severe systemic infection [] Current illicit drug use Informed Consent for the option of considering an HCV positive organ MUST CHOOSE ONE OF THE OPTIONS BELOW [x] Yes, the patient is interested. Leslie Carcamo wishes to pursue the option of obtaining a HCV positive organ. Advantages and disadvantages of HCV viremic donor transplantation were reviewed. Patient received education on the risk of transmission of HCV following HCV viremic donor transplantation, the natural history of HCV, current therapies for HCV, side effects of therapy, and need for monitoring during and after therapy for HCV. Provided pt with educational slide packet and handout titled Transplantation of Hepatitis C Viremic Organs into Hepatitis C Negative Recipients. The risks of HCV transmission post-transplant, fibrosing cholestatic HCV, treatment failure, chronic HCV, cirrhosis and hepatic and non-hepatic manifestations of acute and chronic HCV were specifically discussed. Patient verbalized understanding of the risks and benefits of receiving a hepatitis C viremic organ and provided verbal consent to be enrolled in the protocol. All their questions were answered. [] No, the patient is not interested in this option. [] The patient would like more time to consider this option. Patient has been educated and can call back regarding accepting or declining this option. Seen by Dr. Kidd REVIEW OF SYSTEMS GENERAL: No weight loss, malaise or fevers HEENT: Negative for frequent or significant headaches, NECK: Negative for lumps, RESPIRATORY: Negative for cough, hemoptysis, CARDIOVASCULAR: Negative for chest pain, leg swelling GI: No nausea, vomiting, or diarrhea : No history of dysuria, frequency or incontinence SKIN: Negative for lesions, rash, and itching HEMATOLOGY/LYMPHOLOGY: Negative for prolonged bleeding, NEURO: No history of headaches, PHYSICAL EXAMINATION: General appearance: Well appearing, alert, in no acute distress, well-hydrated, well nourished. Skin: Skin color, texture, turgor normal, no suspicious rashes or lesions Head: Normocephalic, no masses, lesions, tenderness or abnormalities Eyes: Anicteric sclera. Pupils are equally round Neck: Supple, no adenopathy; Lungs: Lungs clear to auscultation. No wheezing, rhonchi, rales. Heart: RRR without murmur, Abdomen: Abdomen soft, non-tender. Bowel sounds normal. No masses, organomegaly Extremities: No deformities, edema, Peripheral pulses: Normal Neuro: Gait normal. A: ESRD 2 to DM/HTN S/p nephrectomy Obesity Plan: Mrs. Carcamo is an acceptable candidate for kidney transplantation pending completion of work up and meeting the rest of the team. Advantages and disadvantages of transplantation versus dialysis were reviewed. Discussed the operative procedure and potential complications. I addressed issues of post-operative recovery and follow up. Few things I have discussed with him a.at his age the data of this treatment option in term of survival benefit is not really clear therefore she is doing it more for QOL b. the importance of compliance c. the frequent travel in the early post op period for monitoring d. We also discussed the transplant procedure and the need for urinary catheter and ureteric stent. I overviewed the issues of delayed graft function, the possible need for dialysis, and the possible need for re-operation during the early postoperative period. I also informed them of the occasional need for blood transfusion and they expressed their understanding and willingness to accept one if the need arises. I mentioned other complications including thromboembolic events, cardiac events, and infection. Lastly I discussed the need for immunosuppressive therapy and the risk associated with this treatment. they would like to proceed 1. CT scan abdomen and pelvis non contrast - thin calcification, doable, third constitution party graft handy, (deep than wide) 2. Serology - 3. Cardic testing 4 should lose weight I spent a total of 60 minutes on the date of the service which included preparing to see the patient, [id number] patient care, completing clinical documentation, obtaining and/or reviewing separately obtained history, performing a medically appropriate examination, counseling and educating the patient/family/caregiver, ordering medications, tests, or procedures, communicating with other HCPs (not separately reported), independently interpreting results (not separately reported), communicating results to the patient/family/caregiver, and care coordination (not separately reported). Chiara Kidd MD documented in this encounter [facility] 06-23-2024 History of Present illness Narrative Radiology Service Progress Note PATIENT NAME: Leslie Carcamo DATE OF SERVICE: June 23, 2024 TIME: 11:32 AM PATIENT IDENTITY VERIFICATION COMPLETED USING TWO (2) IDENTIFIERS: Name and Date of confirmed by patient verbally and Name and Date of confirmed by identification band. FALL SCREENING: Has the patient had 2 falls in the last year or 1 fall with injury or currently using an Ambulatory Assistive Device (Walker, Cane, Wheelchair, Crutches, etc.)? No PATIENT GENDER DATA: Assigned female at . status: : No status: NO. PATIENT RELEVANT IMPLANT DATA REVIEWED: Yes PATIENT PRESENTS WITH AN IMPLANTABLE OR ATTACHED FISHING ROD MARKER: No RADIOLOGY DEPARTMENT: CT; Exam(s) Completed: Abdomen/Pelvis PERIPHERAL IV DATA: Not applicable SIGNED BY: LISA Gilliland) June 23, 2024 11:32 AM documented in this encounter [facility] 06-23-2024 Note HNO ID: [id number] Author: NINOSKA ZUNIGA RT(R) Service: Radiology Author Type: Technologist Type: Progress Notes Filed: 06/23/2024 11:32 Note Text: Radiology Service Progress Note PATIENT NAME: Leslie Carcamo DATE OF SERVICE: June 23, 2024 TIME: 11:32 AM PATIENT IDENTITY VERIFICATION COMPLETED USING TWO (2) IDENTIFIERS: Name and Date of confirmed by patient verbally and Name and Date of confirmed by identification band. FALL SCREENING: Has the patient had 2 falls in the last year or 1 fall with injury or currently using an Ambulatory Assistive Device (Walker, Cane, Wheelchair, Crutches, etc.)? No PATIENT GENDER DATA: Assigned female at . status: : No status: NO. PATIENT RELEVANT IMPLANT DATA REVIEWED: Yes PATIENT PRESENTS WITH AN IMPLANTABLE OR ATTACHED FISHING ROD MARKER: No RADIOLOGY DEPARTMENT: CT; Exam(s) Completed: Abdomen/Pelvis PERIPHERAL IV DATA: Not applicable SIGNED BY: Ninoska Shruti Zuniga, RT(R) June 23, 2024 11:32 AM [facility] 06-23-2024 Note HNO ID: [id number] Author: RACQUEL WISE RN Service: ? Author Type: Registered Nurse Type: Progress Notes Filed: 06/23/2024 11:08 Note Text: PRE-TRANSPLANT PATIENT EDUCATION NOTE Type of Transplant: Kidney Informed Consent for Evaluation signed: Yes Multiple Listing Form signed: Yes READINESS TO LEARN: Cognitive Ability: Alert and oriented Motivation to Learn: Interested Family Support: None - Unavailable/disinterested Instruction Provided to: Patient and family member Patient Learns Best by: Multiple Methods Factors Affecting Learning: None Physical Limitations Affecting Learning: None LEARNING RESPONSE: Diagnosis: HTN Education Topics/Teaching Points: -Discussed living donor evaluation and approval process. -Discussed the evaluation and listing process. -Discussed the different types of donors (KDPI scoring, DCD, High Risk). -Explained EPTS scoring and how it is calculated. -Explained the surgical procedure and potential complications, surgeons, hospital stay at the time of transplant. -Explained lifetime immunosuppression therapy and frequency of blood draws/labs post-op and post-op course of treatment. -Reviewed National and [facility] outcomes from the most recent [facility] center-specific report; a copy of the program summary was given to the patient. -Explained that if the transplant is not performed at a Medicare-approved transplant center it could affect the ability to have immunosuppressive medications paid under Medicare Part B. Supplemental Material: -Pre-Transplant Patient Education Folder -UNOS: Questions AND Answers for Transplant Candidates about Multiple Listing and Waiting Time Transfer -UNOS: Questions AND Answers for Transplant Candidates about Kidney Allocation Policy -Directions to access [facility]'s data through the [facility] website. -Informed Consent for Transplant Program Participation patient education packet -National Kidney Registry pamphlet -Covid-19 Vaccination for Transplant Candidates Method of Instruction: Group class instruction Written instruction/Handouts Verbal instruction Patient/Family Response: Patient asked appropriate questions, which were answered satisfactorily. Follow-Up Plan: Complete - No need for follow-up Referral/Recommendation: None Racquel Wise, SAMUEL Pre-Wrapper Stemmer Operator [facility] 06-23-2024 History of Present illness Narrative PRE-TRANSPLANT PATIENT EDUCATION NOTE Type of Transplant: Kidney Informed Consent for Evaluation signed: Yes Multiple Listing Form signed: Yes READINESS TO LEARN: Cognitive Ability: Alert and oriented Motivation to Learn: Interested Family Support: None - Unavailable/disinterested Instruction Provided to: Patient and family member Patient Learns Best by: Multiple Methods Factors Affecting Learning: None Physical Limitations Affecting Learning: None LEARNING RESPONSE: Diagnosis: HTN Education Topics/Teaching Points: -Discussed living donor evaluation and approval process. -Discussed the evaluation and listing process. -Discussed the different types of donors (KDPI scoring, DCD, High Risk). -Explained EPTS scoring and how it is calculated. -Explained the surgical procedure and potential complications, surgeons, hospital stay at the time of transplant. -Explained lifetime immunosuppression therapy and frequency of blood draws/labs post-op and post-op course of treatment. -Reviewed National and [facility] outcomes from the most recent [facility] center-specific report; a copy of the program summary was given to the patient. -Explained that if the transplant is not performed at a Medicare-approved transplant center it could affect the ability to have immunosuppressive medications paid under Medicare Part B. Supplemental Material: -Pre-Transplant Patient Education Folder -UNOS: Questions & Answers for Transplant Candidates about Multiple Listing and Waiting Time Transfer -UNOS: Questions & Answers for Transplant Candidates about Kidney Allocation Policy -Directions to access [facility]'s data through the [facility] website. -Informed Consent for Transplant Program Participation patient education packet -National Kidney Registry pamphlet -Covid-19 Vaccination for Transplant Candidates Method of Instruction: Group class instruction Written instruction/Handouts Verbal instruction Patient/Family Response: Patient asked appropriate questions, which were answered satisfactorily. Follow-Up Plan: Complete - No need for follow-up Referral/Recommendation: None Racquel Wise RN Pre-Wrapper Stemmer Operator documented in this encounter [facility] 06-23-2024 Note Education (DTBAMN) ---- LESLIE CARCAMO ([id number]) 1950 F Date Time Provider Department 06/23/24 10:30 AM JUSTIN MAIER DTBAMN Reason for Visit: Patient Education [91] Primary Visit Diagnosis:Awaiting transplantation of kidney [Z76.82] Other Visit Diagnoses:Type 2 diabetes mellitus without retinopathy (HCC) [E11.9] Dietary counseling and surveillance [Z71.3] During your visit today, we recorded the following information about you: Weight 84.8 kg Allergies As of Date: 06/23/2024 (No Known Allergies) Date Reviewed: 06/23/2024 Reviewed by: Justin Maier, RD - Fully Assessed Prescriptions as of 06/23/2024 - allopurinol (ZYLOPRIM) 100 mg tablet Take 100 mg by mouth. - amLODIPine (NORVASC) 10 mg tablet Take 10 mg by mouth every morning. - carvedilol (COREG) 25 mg tablet Take 25 mg by mouth two times a day. - dorzolamide-timolol (COSOPT) 22.3-6.8 mg/mL ophthalmic solution PLEASE SEE ATTACHED FOR DETAILED DIRECTIONS - ergocalciferol 50,000 unit capsule (VITAMIN D2, DRISDOL) TAKE 1 CAPSULE BY MOUTH ONCE A MONTH - furosemide (LASIX) 80 mg tablet Take 80 mg by mouth. - cloNIDine TTS (CATAPRES-TTS) 0.3 mg/24 hr Apply 1 Patch as directed one time a week. - hydrALAZINE (APRESOLINE) 100 mg tablet Take 100 mg by mouth three times a day. - TRESIBA FLEXTOUCH U-100 100 unit/mL (3 mL) injection pen Inject 10 units daily - levocetirizine 5 mg tablet Take 5 mg by mouth. - ENTRESTO 97-103 mg tablet Take 1 tablet by mouth. - fluticasone (FLONASE) 50 mcg/actuation nasal spray Use 2 Sprays in the nose. - brimonidine (ALPHAGAN) 0.2 % ophthalmic solution INSTILL 1 DROP LEFT EYE TWICE A DAY INSTILL ONE DROP INTO LEFT EYE TWICE DAILY, NOON AND DINNER - calcium carbonate (TUMS) 500 mg chew Take 500 mg by mouth. - sucroferric oxyhydroxide (VELPHORO) 500 mg chew Take 500 mg by mouth. - HYDROcodone-acetaminophen (NORCO) 5-325 mg per tablet - triamterene-hydrochlorothiazide (MAXZIDE) 75-50 mg per tablet - atorvastatin (LIPITOR) 40 mg tablet - gabapentin (NEURONTIN) 300 mg capsule - amLODIPine-Benazepril 10-40 mg per capsule - timolol maleate (TIMOPTIC) 0.5 % ophthalmic solution Use 1 Drop in both eyes every 12 hours. - TRULICITY 1.5 mg/0.5 mL pnij Inject 1 Dose subcutaneously. Once a week - latanoprost (XALATAN) 0.005 % ophthalmic solution Use 1 Drop in both eyes daily at bedtime. - amLODIPine-benazepril (LOTREL) 5-20 mg per capsule Take 1 capsule by mouth once daily. - aspirin, enteric coated (ASPIRIN, ENTERIC COATED) 81 mg EC tablet Take 81 mg by mouth once daily. - GLIMEPIRIDE ORAL Take by mouth. - glimepiride (AMARYL) 2 mg tablet Take 2 mg by mouth daily with breakfast. Disposition: Return if symptoms worsen or fail to improve. Follow-up and Disposition History for Encounter Date Provider Department Center 06/23/2024 [id number], CARLY DTBAMN Main - [facility] Encounter Status:Closed by JUSTIN MAIER on 06/23/24 [facility] 06-19-2024 Telephone encounter Note Called and left voicemail reminding patient of up coming appointment. Also ask patient to pre register for appointment. Alivia [facility] 06-19-2024 Miscellaneous Notes Called and left voicemail reminding patient of up coming appointment. Also ask patient to pre register for appointment. Alivia documented in this encounter [facility] 06-17-2024 Note Vascular & Intervent ional Radiology Provided By [facility] (Diagnostic Radiology, Interventional and Neurointerventional Radiology and Vascular Medicine) Interventional Radiology Department @ : [phone] 03/12 VIR physician contact: [phone]) Weekday VIR ZINA contact @ : [phone] [facility]: [phone] [email or web address] [facility] CABLE TECHNICIAN DIRECTORY General Procedure: Procedure: Tunneled catheter removal Indication: renal disease- requested tunneled HD catheter removal Practitioner: Matt Mathias PA-C Supervising Physician: Monica Jones M.D. Sedation: Local Lidocaine only The procedure, its risks and benefits were discussed in detail with the patient and/or family. Informed consent was obtained. Description: A right sided, tunneled HD catheter was removed via blunt dissection, intact, without evidence of complications. A bulky dressing was applied. The patient tolerated the procedure well and was sent to the post procedure recovery area in stable condition. Specimen (s) removed: tunneled HD catheter Estimated Blood Loss: Trace Complications: None Full report to follow AUTHENTICATED BY MATT MATHIAS, ON 06/17/2024 12:41:41 [facility] 06-10-2024 Note PROCEDURE: EXPLANTATION OF A right SIDED tunneled HD catheter HISTORY: Renal disease, requested to remove EXPORT FREIGHT CLERK(S): DYANA Champagne M.D. (Supervising) MEDICATIONS Lidocaine with Epi: 10 mL subcutaneous PROCEDURE/TECHNIQUE: Informed consent was obtained and witnessed. The patient was brought to the interventional radiology suite and placed in a supine position. A time-out and pause/confirm was performed. The right was prepped and draped in a sterile fashion. Following cutaneous anesthesia, the cuff of the tunneled catheter was dissected free and the catheter was then removed in entirety. Manual pressure was applied until hemostasis was achieved. IMPRESSION: Successful explantation of a right sided tunneled HD catheter. I reviewed and agree with the above interpretation. Monica Jones MD Workstation ID: [id number] Dictated by: MATT MATHIAS on SatJun 17, 2024 1:21:00 PM EST Transcribed by: MATT MATHIAS on SatJun 17, 2024 1:21:00 PM EST Finalized by: MONICA JONES on SatJun 23, 2024 5:03:00 PM [facility] 05-28-2024 History of Present illness Narrative Nurse Note: Review of Systems Constitutional: Positive for fatigue and unexpected weight change (gaining). Eyes: Negative for visual disturbance. Respiratory: Positive for shortness of breath. Gastrointestinal: Negative for constipation, diarrhea, nausea and vomiting. Endocrine: Negative for polydipsia and polyuria. Neurological: Negative for numbness. Psychiatric/Behavioral: Negative for sleep disturbance. Nursing Assessment: Physical Exam History of Present Illness Type 2 diabetes with renal failure: This is a follow-up visit to the office after an 11 month absence. She was diagnosed with diabetes in 2011. Family history of diabetes includes her daughter. Not taking metformin due to CKD. Currently taking Trulicity 0.75 mg weekly and Tresiba 6 units if needed. She is on hemodialysis twice a week. She has been holding Tresiba if blood sugar <200 mg/dL at bedtime, always basing Tresiba off bedtime sugars. Denies any hypoglycemic symptoms since doing this. She is able to verbalize appropriate treatment of hypoglycemia and also does have nasal glucagon available at home. Labs done 05/09/2024 demonstrated fasting blood nakfxel=266, c-peptide=32.33, hemoglobin A1C=5.6% down from 6.1%, GFR=7. Does not see a valve pipe irrigator and denies any symptoms of peripheral neuropathy. Last visit with ophthalmology was Hypertension: Blood pressure above target today. Follows closely with nephrology for blood pressure control. Hyperlipidemia: Currently on atorvastatin 40 mg daily. Objective Review of Systems Vitals: Blood pressure 142/76, pulse 66, height 1.676 m (5' 5.98), weight 86.7 kg (191 lb 3.2 oz), SpO2 96%. Physical Exam Constitutional: Appearance: Normal appearance. HENT: Head: Normocephalic. Neck: Vascular: No carotid bruit. Cardiovascular: Rate and Rhythm: Normal rate and regular rhythm. Pulmonary: Effort: Pulmonary effort is normal. Breath sounds: Normal breath sounds. Musculoskeletal: Cervical back: Neck supple. Lymphadenopathy: Cervical: No cervical adenopathy. Skin: General: Skin is warm and dry. Neurological: General: No focal deficit present. Mental Status: She is alert and oriented to person, place, and time. Psychiatric: Mood and Affect: Mood normal. Behavior: Behavior normal. Thought Content: Thought content normal. Judgment: Judgment normal. Foot exam: +1 palpable dorsalis pedis pulses bilaterally. Good foot care. Intact monofilament sensation bilaterally. Neurological Exam Mental Status Alert. Oriented to person, place, and time. Assessment and Plan Type 2 diabetes: A1c is meeting aggressive targets. No glycemic data to review. We will continue Tresiba 6 units nightly and we will continue with Trulicity 0.75 mg weekly. We will see her back in 4 months with labs and logbook of blood sugars. Hypertension: Blood pressure above target today. Managed by PCP/nephrology. Hyperlipidemia: No recent Lipid panel. Continue atorvastatin. We will continue to follow for diabetes documented in this encounter [facility] 05-27-2024 Evaluation + Plan note Associated Problem(s): Upper respiratory tract infection I have ordered augmentin for you to take, take 1 tablet twice a day for 10 days. Please take this medication with food. This antibiotic has been known to cause diarrhea, if this occurs you can take Imodium [id number] per package instructions. However, to prevent this you can take a probiotic daily or eat yogurt twice a day. Please ensure that you drinking plenty of fluids and getting as much rest as possible. [facility] 05-27-2024 Miscellaneous Notes Associated Problem(s): Upper respiratory tract infection I have ordered augmentin for you to take, take 1 tablet twice a day for 10 days. Please take this medication with food. This antibiotic has been known to cause diarrhea, if this occurs you can take Imodium [id number] per package instructions. However, to prevent this you can take a probiotic daily or eat yogurt twice a day. Please ensure that you drinking plenty of fluids and getting as much rest as possible. documented in this encounter [facility] 05-27-2024 History of Present illness Narrative Images from the original note were not included. OFFICE VISIT PROGRESS NOTE Leslie Carcamo is a 73 y.o. female with a past medical history of Patient Active Problem List Diagnosis H/O partial nephrectomy End stage renal disease (HCC) Anemia due to stage 5 chronic kidney disease (HCC) COAG (chronic open-angle glaucoma) Essential hypertension Mixed hyperlipidemia Chronic midline low back pain without sciatica Class 1 obesity due to excess calories with serious comorbidity and body mass index (BMI) of 30.0 to 30.9 in adult Type 2 diabetes 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, with long-term current use of insulin (HCC) Gout History of renal cell carcinoma Lipoma of left upper extremity Secondary hyperparathyroidism of renal origin (HCC) S/P arteriovenous (AV) fistula creation (HFpEF) heart failure with preserved ejection fraction (HCC) Numbness and tingling in left hand Arteriovenous fistula, acquired Upper respiratory tract infection who presents to the office today for a cough. Patient states that it started last week, and it is worsening. Cough This is a new problem. The current episode started 1 to 4 weeks ago. The problem has been waxing and waning. The problem occurs constantly. The cough is Productive of sputum (clear). Associated symptoms include nasal congestion and postnasal drip. Pertinent negatives include no chest pain, ear congestion, ear pain, headaches or shortness of breath. Health Maintenance Topic Date Due Tetanus: Every 10yrs Never done Dexa Scan Never done Respiratory Syncytial Virus Immunization: Risk, 60-74 Risk, or 75+ (1 - Risk 60-74 years 1-dose series) Never done Mammogram 08/24/2021 Urine (micro)albumin/creatinine ratio - Diabetes 07/26/2022 Diabetic Foot Exam 01/03/2024 COVID-19 Vaccine (2023- season) 2024 Pneumococcal Vaccine: Age 50+ (1 of 2 - PCV) 01/07/2025 (Originally [birth year]/1970) Zoster Vaccines (1 of 2) 01/07/2025 (Originally 11/12/2001) A1C 07/10/2024 eGFR - Diabetes 08/03/2024 Falls Risk Assessment 01/05/2025 Depression Screening/Follow-Up (PHQ-2/9) 01/05/2025 Medicare Wellness Visit 01/07/2025 Diabetic Eye Exam 01/15/2025 Colorectal Cancer Screening/Monitoring 10/18/2026 Hepatitis C Screening Completed Influenza Vaccine Completed The following portions of the patient's history were reviewed and updated as appropriate: allergies, current medications and problem list. Family History Problem Relation Age of Onset Hypertension Mother Brain cancer Mother No Known Problems Father Hypertension Sister Heart failure Sister SISTER Lung cancer Brother Hypertension Brother Non-Hodgkin's Lymphoma Daughter Stroke Daughter Hypertension Daughter Surgical complications Neg Hx Anesthesia problems Neg Hx Heart disease Neg Hx Clotting disorder Neg Hx Deep vein thrombosis Neg Hx Pulmonary embolism Neg Hx Social History Socioeconomic History Marital status: Tobacco Use Smoking status: Never Smokeless tobacco: Never Vaping Use Vaping status: Never Used Substance and Sexual Activity Alcohol use: Not Currently Comment: socially Drug use: No Sexual activity: Yes Social Drivers of Health Financial Resource Strain: Low Risk (01/02/2023) Overall Financial Resource Strain (CARDIA) Difficulty of Paying Living Expenses: Not hard at all Food Insecurity: No Food Insecurity (01/02/2023) Hunger Vital Sign Worried About Running Out of Food in the Last Year: Never true Ran Out of Food in the Last Year: Never true Transportation Needs: No Transportation Needs (01/02/2023) PRAPARE - Transportation Lack of Transportation (Medical): No Lack of Transportation (Non-Medical): No Social Connections: Unknown (12/21/2021) Social Connection and Isolation Panel [NHANES] Frequency of Social Gatherings with Friends and Family: Once a week Past Surgical History: Procedure Laterality Date COLONOSCOPY N/A 10/18/2021 Procedure: COLONOSCOPY with polypectomy; Surgeon: Chris Stovall MD; [place] [facility] [place] Service: Gastroenterology CV IR INTERVENTIONAL RADIOLOGY N/A 11/14/2021 Procedure: IR DIALYSIS CATHETER INSERTION TUNNELED; Surgeon: Gerhard Walker MD; Location: IR LAB; Service: Interventional Radiology CV IR INTERVENTIONAL RADIOLOGY N/A 06/19/2022 Procedure: VR Fistulagram w/Intervention; Surgeon: Yan Campbell MD; Location: IR LAB; Service: Interventional Radiology CV IR INTERVENTIONAL RADIOLOGY N/A 11/08/2022 Procedure: VR Dialysis Catheter Removal; Surgeon: Froilan Lang MD; Location: IR LAB; Service: Interventional Radiology CV IR INTERVENTIONAL RADIOLOGY N/A 04/02/2023 Procedure: VR Dialysis Cath Insert Tunnel; Surgeon: Matt Mathias PA-C; Location: IR LAB; Service: Interventional Radiology EGD N/A 10/18/2021 Procedure: ESOPHAGOGASTRODUODENOSCOPY with biopsy and polypectomy; Surgeon: Chris Stovall MD; Location: [facility]; Service: Gastroenterology fatty tumor removed fibroid removed uterine FISTULA ARTERIOVENOUS Left 04/23/2022 Procedure: Attempted LEFT BRACHIOBASILIC FISTULA CREATION; Surgeon: Yan Campbell MD; Location: Main OR; Service: Gen-Vascular FISTULA ARTERIOVENOUS Left 05/16/2022 Procedure: LEFT UPPER EXTREMITY ARTERIOVENOUS Graft with Propaten PTFE GRAFT INSERTION; Surgeon: Yan Campbell MD; Location: Main OR; Service: Gen-Vascular HERNIA REPAIR HYSTERECTOMY NEPHRECTOMY PARTIAL ROBOTIC XI STAGE 2 Right 03/26/2018 Procedure: RIGHT ROBOTIC ASSISTED LAPAROSCOPIC PARTIAL NEPHRECTOMY LEVEL 2; Surgeon: Nasim Gaspar MD; Location: [facility] Main OR; Service: Urology No Known Allergies Patient's Medications New Prescriptions AMOXICILLIN-CLAVULANATE (AUGMENTIN) 875-125 MG PER TABLET Take 1 (one) tablet by mouth 2 (two) times a day . FLUCONAZOLE (DIFLUCAN) 150 MG TABLET Take 1 (one) tablet (150 mg total) by mouth every other day If you develop vaginal itching with antibiotic. . Previous Medications ACCU-CHEK GUIDE GLUCOSE METER [facility] USE TEST BLOOD SUGAR 3 TIMES A DAY ALLOPURINOL (ZYLOPRIM) 100 MG TABLET Take 1.5 (one and a half) tablets (150 mg total) by mouth daily . AMLODIPINE (NORVASC) 10 MG TABLET Take 1 (one) tablet (10 mg total) by mouth daily AM . ASPIRIN 81 MG CHEWABLE TABLET Chew and Swallow 1 (one) tablet (81 mg total) daily AM . ATORVASTATIN (LIPITOR) 40 MG TABLET Take 1 (one) tablet (40 mg total) by mouth every morning Reasons: high cholesterol. BRIMONIDINE (ALPHAGAN) 0.2 % OPHTHALMIC SOLUTION Administer 1 (one) drop into the left eye 2 (two) times a day . CALCIUM CARBONATE (TUMS) 200 MG CALCIUM (500 MG) CHEWABLE TABLET Chew and Swallow 1 (one) tablet (500 mg total) . CARVEDILOL (COREG) 25 MG TABLET Take 1 (one) tablet (25 mg total) by mouth 2 (two) times a day with meals . CLONIDINE (CATAPRES-TTS) 0.3 MG/[address] 1 (one) patch on the skin once a week . DORZOLAMIDE-TIMOLOL (COSOPT) 22.3-6.8 MG/ML OPHTHALMIC SOLUTION Administer 1 (one) drop to both eyes 2 (two) times a day . DULAGLUTIDE (TRULICITY) 1.5 MG/0.5 ML PEN Inject 0.5 mL (1.5 mg total) under the skin once a week . ENTRESTO 97-103 MG PER TABLET Take 1 (one) tablet by mouth 2 (two) times a day . FREESTYLE LITE STRIPS STRIPS TEST 3 TIMES DAILY DIRECTED FUROSEMIDE (LASIX) 80 MG TABLET Take 1 (one) tablet (80 mg total) by mouth daily . HYDRALAZINE (APRESOLINE) 50 MG TABLET Take 1 (one) tablet (50 mg total) by mouth 2 (two) times a day . INSULIN DEGLUDEC (TRESIBA FLEXTOUCH U-200) 200 UNIT/ML (3 ML) INPN Inject 10 (ten) Units under the skin nightly . VITAMIN D2 1,250 MCG (50,000 UNIT) CAPSULE 1 (one) capsule (50,000 Units total) every 30 (thirty) days . Modified Medications No medications on file Discontinued Medications FUROSEMIDE (LASIX) 40 MG TABLET 1 tab and 2 tab alternate days . Review of Systems Review of Systems Constitutional: Positive for fatigue. Negative for activity change and appetite change. HENT: Positive for congestion and postnasal drip. Negative for ear pain, sinus pressure and sinus pain. Respiratory: Positive for cough. Negative for shortness of breath. Cardiovascular: Negative for chest pain and palpitations. Neurological: Negative for dizziness, facial asymmetry, light-headedness and headaches. Psychiatric/Behavioral: Negative for agitation. The patient is not nervous/anxious. Vitals: 05/27/24 0808 BP: 125/71 BP Location: Left arm Patient Position: Sitting BP Cuff Size: X-large Adult Pulse: 66 Resp: 16 Temp: 98.4 F (36.9 C) TempSrc: Oral SpO2: 98% Weight: 85.7 kg (189 lb) Height: 5' 6 BP Readings from Last 3 Encounters: 05/27/24 125/71 01/08/24 (!) 108/57 01/07/24 127/73 Wt Readings from Last 3 Encounters: 05/27/24 85.7 kg (189 lb) 01/08/24 84.5 kg (186 lb 3.2 oz) 01/07/24 82.2 kg (181 lb 4.8 oz) Body mass index is 30.51 kg/m . Physical Exam Physical Exam Vitals reviewed. Constitutional: Appearance: Normal appearance. She is well-developed. She is obese. HENT: Head: Normocephalic. Right Ear: External ear normal. Left Ear: External ear normal. Nose: Nose normal. Eyes: General: Lids are normal. Cardiovascular: Rate and Rhythm: Normal rate and regular rhythm. Heart sounds: Normal heart sounds. Pulmonary: Effort: Pulmonary effort is normal. Breath sounds: Normal breath sounds. Musculoskeletal: General: Normal range of motion. Skin: General: Skin is warm and dry. Neurological: General: No focal deficit present. Mental Status: She is alert and oriented to person, place, and time. Coordination: Coordination is intact. Gait: Gait is intact. Psychiatric: Attention and Perception: Attention normal. Mood and Affect: Mood normal. Speech: Speech normal. Behavior: Behavior normal. Behavior is cooperative. Thought Content: Thought content normal. Cognition and Memory: Cognition normal. Judgment: Judgment normal. OARRS/NARxCHECK Report Received and Assessed: Date controlled substance agreement signed: No data found Date of last drug screen: Assessment/Plan Problem List Items Addressed This Visit Respiratory Upper respiratory tract infection - Primary I have ordered augmentin for you to take, take 1 tablet twice a day for 10 days. Please take this medication with food. This antibiotic has been known to cause diarrhea, if this occurs you can take Imodium [id number] per package instructions. However, to prevent this you can take a probiotic daily or eat yogurt twice a day. Please ensure that you drinking plenty of fluids and getting as much rest as possible. Relevant Medications amoxicillin-clavulanate (AUGMENTIN) 875-125 mg per tablet Goals Blood Pressure < 130/80 HEMOGLOBIN A1C < 7 Blood sugar levels outside the normal range may be an indicator of diabetes. For any new medications prescribed today, patient was educated about indications for the medication, how to take the medication and potential side effects of the medications. Electronically signed by: Asia Gonzalez CNP 05/27/24 8:41 AM documented in this encounter [facility] 05-27-2024 Note OFFICE VISIT TAYLOR Tong NOTE Leslie Carcamo is a 73 y.o. female with a past medical history of Patient Active Problem List Diagnosis H/O partial nephrectomy End stage renal disease (HCC) Anemia due to stage 5 chronic kidney disease (HCC) COAG (chronic open-angle glaucoma) Essential hypertension Mixed hyperlipidemia Chronic midline low back pain without sciatica Class 1 obesity due to excess calories with serious comorbidity and body mass index (BMI) of 30.0 to 30.9 in adult Type 2 diabetes 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, with long-term current use of insulin (HCC) Gout History of renal cell carcinoma Lipoma of left upper extremity Secondary hyperparathyroidism of renal origin (HCC) S/P arteriovenous (AV) fistula creation (HFpEF) heart failure with preserved ejection fraction (HCC) Numbness and tingling in left hand Arteriovenous fistula, acquired Upper respiratory tract infection who presents to the office today for a cough. Patient states that it started last week, and it is worsening. Cough This is a new problem. The current episode started 1 to 4 weeks ago. The problem has been waxing and waning. The problem occurs constantly. The cough is Productive of sputum (clear). Associated symptoms include nasal congestion and postnasal drip. Pertinent negatives include no chest pain, ear congestion, ear pain, headaches or shortness of breath. Health Maintenance Topic Date Due Tetanus: Every 10yrs Never done Dexa Scan Never done Respiratory Syncytial Virus Immunization: Risk, 60-74 Risk, or 75+ (1 - Risk 60-74 years 1-dose series) Never done Mammogram 08/24/2021 Urine (micro)albumin/creatinine ratio - Diabetes 07/26/2022 Diabetic Foot Exam 01/03/2024 COVID-19 Vaccine ( season) 2024 Pneumococcal Vaccine: Age 50+ (1 of 2 - PCV) 01/07/2025 (Originally 11/12/1970) Zoster Vaccines (1 of 2) 01/07/2025 (Originally 11/12/2001) A1C 07/10/2024 eGFR - Diabetes 08/03/2024 Falls Risk Assessment 01/05/2025 Depression Screening/Follow-Up (PHQ-2/9) 01/05/2025 Medicare Wellness Visit 01/07/2025 Diabetic Eye Exam 01/15/2025 Colorectal Cancer Screening/Monitoring 10/18/2026 Hepatitis C Screening Completed Influenza Vaccine Completed The following portions of the patient's history were reviewed and updated as appropriate: allergies, current medications and problem list. Family History Problem Relation Age of Onset Hypertension Mother Brain cancer Mother No Known Problems Father Hypertension Sister Heart failure Sister SISTER Lung cancer Brother Hypertension Brother Non-Hodgkin's Lymphoma Daughter Stroke Daughter Hypertension Daughter Surgical complications Neg Hx Anesthesia problems Neg Hx Heart disease Neg Hx Clotting disorder Neg Hx Deep vein thrombosis Neg Hx Pulmonary embolism Neg Hx Social History Socioeconomic History Marital status: Tobacco Use Smoking status: Never Smokeless tobacco: Never Vaping Use Vaping status: Never Used Substance and Sexual Activity Alcohol use: Not Currently Comment: socially Drug use: No Sexual activity: Yes Social Drivers of Health Financial Resource Strain: Low Risk (01/02/2023) Overall Financial Resource Strain (CARDIA) Difficulty of Paying Living Expenses: Not hard at all Food Insecurity: No Food Insecurity (01/02/2023) Hunger Vital Sign Worried About Running Out of Food in the Last Year: Never true Ran Out of Food in the Last Year: Never true Transportation Needs: No Transportation Needs (01/02/2023) PRAPARE - Transportation Lack of Transportation (Medical): No Lack of Transportation (Non-Medical): No Social Connections: Unknown (12/21/2021) Social Connection and Isolation Panel [NHANES] Frequency of Social Gatherings with Friends and Family: Once a week Past Surgical History: Procedure Laterality Date COLONOSCOPY N/A 10/18/2021 Procedure: COLONOSCOPY with polypectomy; Surgeon: Chris Stovall MD; [place] [facility] [place] Service: Gastroenterology CV IR INTERVENTIONAL RADIOLOGY N/A 11/14/2021 Procedure: IR DIALYSIS CATHETER INSERTION TUNNELED; Surgeon: Gerhard Walker MD; Location: IR LAB; Service: Interventional Radiology CV IR INTERVENTIONAL RADIOLOGY N/A 06/19/2022 Procedure: VR Fistulagram w/Intervention; Surgeon: Yan Campbell MD; Location: IR LAB; Service: Interventional Radiology CV IR INTERVENTIONAL RADIOLOGY N/A 11/08/2022 Procedure: VR Dialysis Catheter Removal; Surgeon: Froilan Lang MD; Location: IR LAB; Service: Interventional Radiology CV IR INTERVENTIONAL RADIOLOGY N/A 04/02/2023 Procedure: VR Dialysis Cath Insert Tunnel; Surgeon: Matt Mathias PA-C; Location: IR LAB; Service: Interventional Radiology EGD N/A 10/18/2021 Procedure: ESOPHAGOGASTRODUODENOSCOPY with biopsy and polypectomy; Surgeon: Chris Stovall MD; Location: [place]; Service: Gastroenterology (more content not included)... [facility] 04-29-2024 Note [facility] Medical Records Department [address] [place] [address] History Physical Exam 04/29/24 1150 MR#: [id number] Acct: [id number] Name: LESLIE CARCAMO Rep #: [id number] : 1950 73 From: Papito Martinez MD PCP: Danny Rose MD [place] [facility] [place] [facility] HPI - General HPI Narrative LESLIE CARCAMO, is a 73 F who presents with right basilic fistula with poor flow volumes. [facility] Medical History Wears glasses Post-menopausal Alcohol use Insulin dependent diabetes mellitus Arthritis Anemia Shortness of breath on exertion Non-smoker History of echocardiogram History of stress test History of renal dialysis Hypertension Gout Diabetes Problem with dialysis access Steal syndrome dialysis vascular access Home Medications ???Medication ???Instructions ???Recorded ???Last Taken ???Type allopurinol 100 mg tablet 150 mg PO DAILY GOUT 10/25/22 02/03/24 History amlodipine 10 mg tablet 10 mg PO QHS BP 10/25/22 04/29/24 History aspirin 81 mg tablet,delayed 81 mg PO DAILY HEART HEALTH 10/25/22 02/03/24 History release atorvastatin 40 mg tablet 40 mg PO SUTH CHOLESTEROL 10/25/22 02/03/24 History carvedilol 25 mg tablet 25 mg PO BID HEART 10/25/22 04/29/24 History dulaglutide 1.5 mg/0.5 mL 1.5 mg subcut WE DIABETES 10/25/22 01/22/24 History subcutaneous pen injector (Trulicity) ergocalciferol (vitamin D2) 1,250 1,250 mcg PO QMONTH SUPPLEMENT 10/25/22 02/03/24 History mcg (50,000 unit) capsule (Vitamin D2) furosemide 80 mg tablet 80 mg PO DAILY WATER PILL 10/25/22 02/03/24 History insulin degludec 200 unit/mL (3 10 unit subcut QHS PRN PRN DIABETES 10/25/22 03/25/23 History mL) subcutaneous pen (Tresiba FlexTouch U-200 insulin) multivit,Ca,mwb-qlqd-EW-guarana-caff 1 tab PO DAILY SUPPLEMENT 10/25/22 02/03/24 History 9 mg iron-400 mcg-200 mg tablet (One-A-Day Energy) clonidine 0.3 mg/24 hr weekly 1 patch topical URBINA 11/11/23 02/02/24 History transdermal patch dorzolamide 22.3 mg-timolol 6.8 1 drp ophthalmic (eye) BID 11/11/23 02/03/24 History mg/mL eye drops hydralazine 100 mg tablet 100 mg PO BID 11/11/23 02/03/24 History sacubitril 97 mg-valsartan 103 mg 1 tab PO BID 11/11/23 04/29/24 History tablet (Entresto) oxycodone 5 mg tablet 5 mg PO Q8H PRN pain 4 days #12 02/04/24 Unknown Rx tabs Allergy/AdvReac Type Severity Reaction Status Date / Time No Known Allergies Allergy Verified 03/05/24 15:26 Family History Aunt CVA (cerebral vascular accident) Sister Asthma Daughter Thyroid disorder CVA (cerebral vascular accident) Daughter Diabetes Hypertension Kidney disease High cholesterol Surgical History Hx of surgical procedure Hx of excision of mass History of partial nephrectomy History of infusaport central venous catheter insertion History of arteriovenostomy for renal dialysis History of hysterectomy Social History Smoking Status: Never smoker alcohol intake: current alcohol intake frequency: a few times a month substance use type: does not use ROS Constitutional Constitutional: Denies chills, fever(s), frequent falls, lethargy or weakness Eyes Eyes: Denies blind spots, change in vision or loss of vision ENT HEENT: Denies bleeding gums, hoarseness or sore throat Cardiovascular Cardiovascular: Denies abdominal pain, bluish discoloration of hand/feet, chest pain with activity, claudication, cold extremities, cyanosis, dyspnea on exertion, erythema on extremities, irregular heart rhythm, leg edema, leg ulcers, numbness in extremities or weakness in extremities Respiratory/Chest Respiratory/Chest: Denies cough, excessive phlegm production, shortness of breath at rest, shortness of breath with exertion or wheezing Gastrointestinal Gastrointestinal: Denies anorexia, change in stool character, constipation, diarrhea, melena or rectal bleeding Genitourinary Genitourinary: Denies dysuria or hematuria Musculoskeletal Musculoskeletal: Denies abnormal gait Integumentary Integumentary: Reports other Details: ; Denies erythema, non-healing lesions or wounds Neurologic Neurologic: Denies abnormal speech, focal weakness, headache(s), loss of vision, numbness, paresthesias or sensory deficit Hematologic/Lymphatic Hematologic/Lymphatic: Denies easy bleeding, easy bruising or lymphadenopathy Vital Signs Vital Signs Vital Signs: Weight Weight: 184 lb Body Mass Index (BMI) 29.7 Physical Exam Const alert, oriented x3, no apparent distress and healthy appearing General Appearance: cooperative; Negative for combative or lethargic (more content not included)... [facility] 03-30-2024 Note HNO ID: [id number] Author: ELENITA SNOW RN Service: ? Author Type: Registered Nurse Type: Progress Notes Filed: 03/30/2024 12:22 Note Text: Kidney PreTransplant do all operator Referring physician:Chris Ford Referral intake:see phone encounter dated: 03/16/2024 CT abd/pel:Needs ordered ECHO/EF: Not Done/ Stress test 12/03/2018 LVEF 65% Kidney Disease Cause: HTN Different from intake: [facility] 03-30-2024 History of Present illness Narrative Kidney PreTransplant do all operator Referring physician:Chris Ford Referral intake:see phone encounter dated: 03/16/2024 CT abd/pel:Needs ordered ECHO/EF: Not Done/ Stress test 12/03/2018 LVEF 65% Kidney Disease Cause: HTN Different from intake: documented in this encounter [facility] 03-17-2024 Telephone encounter Note Kidney TRANSPLANT REFERRAL (enter above which organ the patient needs; Kidney, Pancreas or Kidney/Pancreas) Is this referral for a Safety Net or HIV Patient? No (Safety Net = Pt needing an additional transplant within 12 months for any organ) Lesliesuki Carcamo [phone] Spoke with: Patient Best Contact FOR PANCREAS AND KIDNEY/PANCREAS TRANSPLANT AGE 55+ is a HARD STOP If patient is NOT on Dialysis & has a GFR >21 is a HARD STOP REFERRING POLISHING MACHINE OPERATOR / PHYSICIAN: Dr. Ford Have you ever been evaluated for kidney/pancreas transplant? No If YES, where? Status of listing/evaluation: Have you had a previous transplant? No Have you had one or both kidneys removed: Yes. If yes, date and location: Particle right removed Reason: Cancer _ OUT OF STATE MEDICAID PATIENTS: APC - run the Medicaid through [facility] to determine if the coverage is Out of Network (OON) with [facility]. If the Medicaid is OON, inform the patient that their PCP will need to send a referral to the Out of State Medicaid for a Transplant Evaluation. Have you been seen at another Transplant Center that was in-network with your Out of State (OOS) Medicaid and denied a Transplant Evaluation? No Has your PCP sent in a referral for transplant to your (OOS) Medicaid pillowcase cleaner? No _ ___ Height: 5'6 Weight: 183 BMI: 29.5 KIDNEY TRANSPLANT BMI>42 is a HARD STOP PANCREAS TRANSPLANT BMI>32 is a HARD STOP Have you had weight loss without trying within the last 30 days? No If YES, please complete the Malnutrition Screening Tool (MST). Malnutrition Screening Tool (MST) If YES, how much weight have you lost? Weight loss score: 0 Have you been eating poorly in the last week because of a decreased appetite? No- 0 Appetite score: 0 Total MST score (weight loss + appetite scores): 0 Score of 2 or more = referral to registered dietitian for an individual appointment Any history of Smoking/Vaping/Nicotine products: Non-smoker If a current smoker, this is a HARD STOP Packs/Day X # of Yrs smoked = Pack Yrs Oxygen use: No If on continuous oxygen this is a HARD STOP Blood Transfusion: Are you willing to accept a blood transfusion if needed? Yes If NO this is a HARD STOP Assistive devices: No assistive device Activity Level: Light activity COPD/Emphysema/Other pulmonary problem: No Dialysis: Yes. If yes, date and location: [facility] : - Dialysis start date: 11/10/2021 If not on dialysis, what is your GFR? Do you have Diabetes? Type 2 Age diagnosed: 56 Insulin dependent: Yes Hypoglycemic unawareness: No Have you had a Kidney Biopsy: No Have you had a Liver Biopsy: No Dx of Cirrhosis? No Dx of Hepatitis? No Hx of ETOH? No Hx of Drug use? No Hx of Psychiatric disorder? No Dx of HIV/AIDS? No if yes, Infectious Disease doctor name/where? Hx of Cancer? no Hx of Hypertension? Yes Hx of [place]/Heart Attack? No Hx of TIA/CVA or Stroke? No Are you on a blood thinner? Yes If YES which medication are you on? Asprin Have you had a CABG or STENTS? No Have you ever had a Stress Test? Yes. If yes, date and location: [facility] 2021 Have you ever had an Echo? No Have you ever had a Cardiac Cath? No CT Abdomen/Pelvis: Yes 12/27/2017 [facility] Mammogram: Yes. If yes, date and location: 02/[address] in [facility] [place] [address] Pap Test: No Colonoscopy: Yes. If yes, date and location: [facility] Hx of Lupus? No Sickle Cell Trait or Disease: No Have you had any prior surgeries? yes Hysterectomy Do you have a potential living donor? No [employer] Is the patient signed up for Sighter? Yes If YES - send patient the Kidney/Pancreas New Referral Message. If NO - obtain their email address AND send [employer] sign up information: email address: [email or web address] Is the patient okay with having a Virtual Appt: Yes What facilities do we need outside records from: Have records been retrieved from Care Everywhere: Yes. Have records been requested from [facility]? Yes Additional Comments about patient/evaluation: Route the referral to the Kidney Txp bagging salvager, Renita Cadet. Alivia Lopez [facility] 03-17-2024 Miscellaneous Notes Kidney TRANSPLANT REFERRAL (enter above which organ the patient needs; Kidney, Pancreas or Kidney/Pancreas) Is this referral for a Safety Net or HIV Patient? No (Safety Net = Pt needing an additional transplant within 12 months for any organ) Leslie Carcamo [phone] Spoke with: Patient Best Contact FOR PANCREAS AND KIDNEY/PANCREAS TRANSPLANT AGE 55+ is a HARD STOP If patient is NOT on Dialysis & has a GFR >21 is a HARD STOP REFERRING POLISHING MACHINE OPERATOR / PHYSICIAN: Dr. Ford Have you ever been evaluated for kidney/pancreas transplant? No If YES, where? Status of listing/evaluation: Have you had a previous transplant? No Have you had one or both kidneys removed: Yes. If yes, date and location: Particle right removed Reason: Cancer _ OUT OF STATE MEDICAID PATIENTS: [facility] - run the Medicaid through [employer] to determine if the coverage is Out of Network (OON) with [facility]. If the Medicaid is OON, inform the patient that their PCP will need to send a referral to the Out of State Medicaid for a Transplant Evaluation. Have you been seen at another Transplant Center that was in-network with your Out of State (OOS) Medicaid and denied a Transplant Evaluation? No Has your PCP sent in a referral for transplant to your (OOS) Medicaid pillowcase cleaner? No _ ___ Height: 5'6 Weight: 183 BMI: 29.5 KIDNEY TRANSPLANT BMI>42 is a HARD STOP PANCREAS TRANSPLANT BMI>32 is a HARD STOP Have you had weight loss without trying within the last 30 days? No If YES, please complete the Malnutrition Screening Tool (MST). Malnutrition Screening Tool (MST) If YES, how much weight have you lost? Weight loss score: 0 Have you been eating poorly in the last week because of a decreased appetite? No- 0 Appetite score: 0 Total MST score (weight loss + appetite scores): 0 Score of 2 or more = referral to registered dietitian for an individual appointment Any history of Smoking/Vaping/Nicotine products: Non-smoker If a current smoker, this is a HARD STOP Packs/Day X # of Yrs smoked = Pack Yrs Oxygen use: No If on continuous oxygen this is a HARD STOP Blood Transfusion: Are you willing to accept a blood transfusion if needed? Yes If NO this is a HARD STOP Assistive devices: No assistive device Activity Level: Light activity COPD/Emphysema/Other pulmonary problem: No Dialysis: Yes. If yes, date and location: [facility] : M-F Dialysis start date: 11/10/2021 If not on dialysis, what is your GFR? Do you have Diabetes? Type 2 Age diagnosed: 56 Insulin dependent: Yes Hypoglycemic unawareness: No Have you had a Kidney Biopsy: No Have you had a Liver Biopsy: No Dx of Cirrhosis? No Dx of Hepatitis? No Hx of ETOH? No Hx of Drug use? No Hx of Psychiatric disorder? No Dx of HIV/AIDS? No if yes, Infectious Disease doctor name/where? Hx of Cancer? no Hx of Hypertension? Yes Hx of [place]/Heart Attack? No Hx of TIA/CVA or Stroke? No Are you on a blood thinner? Yes If YES which medication are you on? Asprin Have you had a CABG or STENTS? No Have you ever had a Stress Test? Yes. If yes, date and location: [facility] 2021 Have you ever had an Echo? No Have you ever had a Cardiac Cath? No CT Abdomen/Pelvis: Yes 12/27/2017 [facility] Mammogram: Yes. If yes, date and location: 02/[address] in [facility] [place] [address] Pap Test: No Colonoscopy: Yes. If yes, date and location: [facility] Hx of Lupus? No Sickle Cell Trait or Disease: No Have you had any prior surgeries? yes Hysterectomy Do you have a potential living donor? No MyCHART Is the patient signed up for [employer]? Yes If YES - send patient the Kidney/Pancreas New Referral Message. If NO - obtain their email address AND send mychart sign up information: email address: [email or web address] Is the patient okay with having a Virtual Appt: Yes What facilities do we need outside records from: Have records been retrieved from Care Everywhere: Yes. Have records been requested from [facility]? Yes Additional Comments about patient/evaluation: Route the referral to the Kidney Txp bagging salvager, Renita Cadet. Alivia Lopez documented in this encounter [facility] 03-17-2024 Telephone encounter Note I called patient to start the kidney referral intake process. I left a voicemail for patient to call us back. Alivia Lopez [facility] 03-17-2024 Miscellaneous Notes I called patient to start the kidney referral intake process. I left a voicemail for patient to call us back. Alivia Lopez documented in this encounter [facility] 02-04-2024 Note [facility] Medical Records Department [address] [place] [address] History Physical Exam 02/04/24 1005 MR#: [id number] Acct: [id number] Name: LESLIE CARCAMO Rep #: [id number] : 1950 73 From: Papito Martinez MD PCP: Danny Rose MD Status:[facility] Location: [place] [address] History and Physical Allergies No Known Allergies Allergy (Verified 01/30/24 15:22) Medications ???Medication ???Instructions ???Recorded ???Confirmed ???Type allopurinol 100 mg tablet 150 mg PO DAILY GOUT 10/25/22 01/30/24 History amlodipine 10 mg tablet 10 mg PO QHS BP 10/25/22 01/30/24 History aspirin 81 mg tablet,delayed 81 mg PO DAILY HEART HEALTH 10/25/22 01/30/24 History release atorvastatin 40 mg tablet 40 mg PO SUTH CHOLESTEROL 10/25/22 01/30/24 History carvedilol 25 mg tablet 25 mg PO BID HEART 10/25/22 01/30/24 History dulaglutide 1.5 mg/0.5 mL 1.5 mg subcut WE DIABETES 10/25/22 01/30/24 History subcutaneous pen injector (Trulicity) ergocalciferol (vitamin D2) 1,250 1,250 mcg PO QMONTH SUPPLEMENT 10/25/22 01/30/24 History mcg (50,000 unit) capsule (Vitamin D2) furosemide 80 mg tablet 80 mg PO DAILY WATER PILL 10/25/22 01/30/24 History insulin degludec 200 unit/mL (3 10 unit subcut QHS PRN PRN DIABETES 10/25/22 01/30/24 History mL) subcutaneous pen (Tresiba FlexTouch U-200 insulin) multivit,Ca,mbx-oozt-IQ-guarana-caff 1 tab PO DAILY SUPPLEMENT 10/25/22 01/30/24 History 9 mg iron-400 mcg-200 mg tablet (One-A-Day Energy) clonidine 0.3 mg/24 hr weekly 1 patch topical URBINA 11/11/23 01/30/24 History transdermal patch dorzolamide 22.3 mg-timolol 6.8 1 drp ophthalmic (eye) BID 11/11/23 01/30/24 History mg/mL eye drops hydralazine 100 mg tablet 100 mg PO BID 11/11/23 01/30/24 History sacubitril 97 mg-valsartan 103 mg 1 tab PO BID 11/11/23 01/30/24 History tablet (Entresto) Is last menstrual period known: No Post menopausal: No Patient : No Have you fallen in the past year?: No Subjective Details: Doing well, no new concerns with right hand, some continued intermittent numbness. Objective Details: A Ox3, NAD RRR Resp non labored +thrill to mid upper arm, bruit to axilla Coding Level of Care Code Global Post Op Diagnoses ESRD (end stage renal disease) on dialysis N18.6; Z99.2 [facility] Medical History (Updated 01/30/24 @ 16:[address] Papito Martinez MD) Wears glasses Post-menopausal Alcohol use Insulin dependent diabetes mellitus Arthritis Anemia Shortness of breath on exertion Non-smoker History of echocardiogram History of stress test History of renal dialysis Hypertension Gout Diabetes Problem with dialysis access Steal syndrome dialysis vascular access Surgical History (Updated 01/29/24 @ 08:44 by Katie Cam) Hx of surgical procedure Hx of excision of mass History of partial nephrectomy History of infusaport central venous catheter insertion History of arteriovenostomy for renal dialysis History of hysterectomy Family History Aunt CVA (cerebral vascular accident)Sister AsthmaDaughter Thyroid disorder CVA (cerebral vascular accident)Daughter Diabetes Hypertension Kidney disease High cholesterol Social History Smoking Status: Never smoker alcohol intake: current alcohol intake frequency: a few times a month substance use type: does not use Assessment and Plan (No Qualifiers) Assessment and Plan (1) ESRD (end stage renal disease) on dialysis: Status: Chronic Plan: -maturing well -still minimal or no steal -transposition 02/04/24 1005 Cosigner Signature (if applicable): CC: Dr. Papito Martinez MD; Danny Rose MD Signed [facility] 01-29-2024 Note Addended by: DANNY ROSE on: 01/29/2024 06:39 PM Modules accepted: Orders [facility] 01-29-2024 Miscellaneous Notes Addended by: DANNY ROSE on: 01/29/2024 06:39 PM Modules accepted: Orders Associated Problem(s): Acute pain of right knee Improved after steroid taper. She did see orthopedics and Xray was ordered. No results to review. If symptoms return, I'd recommend that she follows back up with orthopedics. Associated Problem(s): Essential hypertension Chronic, managed by nephrology. Several medication adjustments. She is on Hydralazine so educated her on when to not take it and should call if low. Goal < 130/80. Associated Problem(s): Medicare annual wellness visit, subsequent -Counseled on healthy diet. -Counseled on importance of exercise - 150mins/ week of moderate activity as tolerated -Depression screening was negative -Tobacco counseling not indicated -Alcohol screening negative -Immunizations reviewed. -Discussed pap recommendations: no longer indicated -Discussed breast cancer screening: due now, she states she has an appt with mechanic general operational test soon -Discussed colon cancer screening: up to date -Discussed osteoporosis screening: up to date Associated Problem(s): Mixed hyperlipidemia Chronic, on statin. Recommend continuing. She is high risk for CVD and has a history of diabetes The 10-year ASCVD risk score (Izabela DK, et al., 2019) is: 20.6% Values used to calculate the score: Age: 73 years Sex: Female Is Non- : Yes Diabetic: Yes Tobacco smoker: No Systolic Blood Pressure: 108 mmHg Is BP treated: Yes HDL Cholesterol: 59 mg/dL Total Cholesterol: 179 mg/dL Associated Problem(s): Type 2 diabetes 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, with long-term current use of insulin (HCC) Chronic, follows with endocrinology. Taking insulin as needed for now. documented in this encounter [facility] 01-08-2024 Evaluation + Plan note Associated Problem(s): Acute pain of right knee Improved after steroid taper. She did see orthopedics and Xray was ordered. No results to review. If symptoms return, I'd recommend that she follows back up with orthopedics. [facility] 01-08-2024 Miscellaneous Notes Associated Problem(s): Acute pain of right knee Improved after steroid taper. She did see orthopedics and Xray was ordered. No results to review. If symptoms return, I'd recommend that she follows back up with orthopedics. Associated Problem(s): Essential hypertension Chronic, managed by nephrology. Several medication adjustments. She is on Hydralazine so educated her on when to not take it and should call if low. Goal < 130/80. Associated Problem(s): Medicare annual wellness visit, subsequent -Counseled on healthy diet. -Counseled on importance of exercise - 150mins/ week of moderate activity as tolerated -Depression screening was negative -Tobacco counseling not indicated -Alcohol screening negative -Immunizations reviewed. -Discussed pap recommendations: no longer indicated -Discussed breast cancer screening: due now, she states she has an appt with mechanic general operational test soon -Discussed colon cancer screening: up to date -Discussed osteoporosis screening: up to date Associated Problem(s): Mixed hyperlipidemia Chronic, on statin. Recommend continuing. She is high risk for CVD and has a history of diabetes The 10-year ASCVD risk score (Izabela TA, et al., 2019) is: 20.6% Values used to calculate the score: Age: 73 years Sex: Female Is Non- : Yes Diabetic: Yes Tobacco smoker: No Systolic Blood Pressure: 108 mmHg Is BP treated: Yes HDL Cholesterol: 59 mg/dL Total Cholesterol: 179 mg/dL Associated Problem(s): Type 2 diabetes 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, with long-term current use of insulin (HCC) Chronic, follows with endocrinology. Taking insulin as needed for now. documented in this encounter [facility] 01-08-2024 Evaluation + Plan note Associated Problem(s): Essential hypertension Chronic, managed by nephrology. Several medication adjustments. She is on Hydralazine so educated her on when to not take it and should call if low. Goal < 130/80. [facility] 01-08-2024 Evaluation + Plan note Associated Problem(s): Medicare annual wellness visit, subsequent -Counseled on healthy diet. -Counseled on importance of exercise - 150mins/ week of moderate activity as tolerated -Depression screening was negative -Tobacco counseling not indicated -Alcohol screening negative -Immunizations reviewed. -Discussed pap recommendations: no longer indicated -Discussed breast cancer screening: due now, she states she has an appt with mechanic general operational test soon -Discussed colon cancer screening: up to date -Discussed osteoporosis screening: up to date [facility] 01-08-2024 Evaluation + Plan note Associated Problem(s): Mixed hyperlipidemia Chronic, on statin. Recommend continuing. She is high risk for CVD and has a history of diabetes The 10-year ASCVD risk score (Izabela TA, et al., 2019) is: 20.6% Values used to calculate the score: Age: 73 years Sex: Female Is Non- : Yes Diabetic: Yes Tobacco smoker: No Systolic Blood Pressure: 108 mmHg Is BP treated: Yes HDL Cholesterol: 59 mg/dL Total Cholesterol: 179 mg/dL [facility] 01-08-2024 Evaluation + Plan note Associated Problem(s): Type 2 diabetes 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, with long-term current use of insulin (HCC) Chronic, follows with endocrinology. Taking insulin as needed for now. [facility] 01-08-2024 Instructions Danny Rose MD - 01/08/2024 2:31 PM EDT [facility] Low Risk Patient Instructions: Your Falls Screening today shows that you are at low risk for falls. To further protect yourself from falls and maintain your independence, we recommend: 1. Read through the brochure, What You Can Do to Prevent Falls (from [facility]). 2. Go through the brochure, Check for Safety: A Home Fall Prevention Checklist for Older Adults (from [facility]), and make changes as recommended. 3. Join a community falls prevention program: Stepping On, a 7-week evidence based program that teaches balance exercises and fall prevention strategies Norman Chi for older adults, group exercise that teaches Norman Chi forms that reduce fall risk (weight shifting, postural alignment and control, and coordinated movements of the arms, legs, head, and trunk) Matter of Balance, an evidence based program designed to reduce the fear of falling and increase activity levels of older adults OR an exercise class for strength and balance. 4. Take your Vitamin D with or without Calcium, as determined by your healthcare provider. 5. Get your vision and hearing checked annually. Falls At Home Each year, thousands of older Americans fall at home. Many of them are seriously injured, and some are disabled. In 2011, nearly 23,000 people over age 65 and 2.4 million were treated in emergency departments because of falls. Falls are often due to hazards that are easy to overlook but easy to fix. This checklist will help you find and fix those hazards in your home. The checklist asks about hazards found in each room of your home. For each hazard, the checklist tells you how to fix the problem. At the end of the checklist, you ll find other tips for preventing falls. FLOORS: Look at the floor in each room. Q: When you walk through a room, do you have to walk around furniture? A. Ask someone to move the furniture so your path is clear Q: Do you have throw rugs on the floor? A. Remove the rugs or use double-sided tape or a non-slip backing so the rugs won t slip. Q: Are there papers, books, towels, shoes, magazines, boxes, blankets, or other objects on the floor? A.jewel cupping machine operator things that are on the floor. Always keep objects off the floor. Q: Do you have to walk over or around wires or cords (like lamp, telephone, or extension cords)? A. Coil or tape cords and wires next to the wall so you can t trip over them. If needed, have an nurses supervisor put in another outlet. STAIRS AND STEPS: Look at the stairs you use both inside and outside your home. Q: Are there papers, shoes, books, or other objects on the stairs? A. jewel cupping machine operator things on the stairs. Always keep objects off stairs. Q: Are some steps broken or uneven? A. Fix loose or uneven steps. Q: Are you missing a light over the stairway? A. Have an nurses supervisor put in an overhead light at the top and bottom of the stairs. Q: Do you have only one light switch for your stairs (only at the top or at the bottom of the stairs)? A. Have an nurses supervisor put in a light switch at the top and bottom of the stairs. You can get light switches that glow. Q: Has the stairway light bulb burned out? A. Have a friend or family member change the light bulb. Q: Is the carpet on the steps loose or torn? A. Make sure the carpet is firmly attached to every step, or remove the carpet and attach non-slip rubber treads to the stairs. Q: Are the handrails loose or broken? Is there a handrail on only one side of the stairs? A. Fix loose handrails or put in new ones. Make sure handrails are on both sides of the stairs and are as long as the stairs. KITCHEN: Look at your kitchen and eating area. Q: Are the things you use often on high shelves? A. Move items in your cabinets. Keep things you use often on the lower shelves (about waist level). Q: Is your step stool unsteady? A. If you must use a step stool, get one with a bar to hold on to. Never use a chair as a step stool. BATHROOMS: Look at all your bathrooms. Q: Is the tub or shower floor slippery? A. Put a non-slip rubber mat or self-stick strips on the floor of the tub or shower. Q: Do you need some support when you get in and out of the tub or up from the toilet? A. Have grab bars put in next to and inside the tub and next to the toilet. BEDROOMS: Look at all your bedrooms. Q: Is the light near the bed hard to reach? A. Place a lamp close to the bed where it s easy to reach. Q: Is the path from your bed to the bathroom dark? A. Put in a night-light so you can see where you re walking. Some night-lights go on by themselves after dark. Other Things You Can Do to Prevent Falls Do exercises that improve your balance and make your legs stronger. Exercise also helps you feel better and more confident. Have your doctor or pharmacist look at all the medicines you take, even btfh-gbp-cusbuqo medicines. Some medicines can make you sleepy or dizzy. Have your eyes checked by an eye doctor at least once a year and update your glasses. Get up slowly after you sit or lie down. Wear shoes both inside and outside the house. Avoid going barefoot or wearing slippers. Improve the lighting in your home. Put in brighter light bulbs. Florescent bulbs are bright and cost less to use. It s safest to have uniform lighting in a room. Add lighting to dark areas. Hang lightweight curtains or shades to reduce glare. [place] a contrasting color on the top edge of all steps so you can see the stairs better. For example, use a light color paint on dark wood. To access this brochure online, please visit the CDC website at http://www.cdc.gov/steadi/pdf/check_fo r_safety_brochure-a.pdf Chair Rise Exercise What it does: Strengthens the muscles in your thighs & buttocks. Goal: To do this exercise without using your hands as you become stronger. How to do it: 1. Sit toward the front of a sturdy chair with your knees bent & feet flat on the floor shoulder-width apart 2. Rest your hands lightly on the seat on either side of you, keeping your back & neck straight & and chest slightly forward. 3. Breathe in slowly. Lean forward & feel your weight on the front of your feet. 4. Breathe out and slowly stand up, using your hands as little as possible. 5. Pause for a full breath in & out. 6. Breathe in as you slowly sit down. Do not let yourself collapse back down into the chair. Rather, control your lowering as much as possible. 7. Breathe out. Repeat 10-15 times. If this number is too hard for you when you first start practicing this exercise, begin with fewer and work up to this number. Rest for a minute & then do a final set of 10-15. For detailed instructions, please visit the CDC website at http://www.cdc.gov/steadi/pdf/chair_ri se_exercise-a.pdf Stepping On is an evidence based program proven to reduce falls in older adults. It is a workshop offered once a week for seven weeks. In a small-group setting, you will learn balance exercises and develop specific knowledge and skills to prevent falls. Older adults who should attend are those who: are at risk of falling who have fallen one or more times lives at home are able to walk without the help of another person Local guest experts provide information on exercise, safety, vision, and medications. Classes are offered at [facility]. To find out specifics about a class, please call [phone]. Norman chi: Moving for Better Balance involves low impact exercise. The 12-week class is offered for three hours per week and is led by a trained humanities instructor. It is intended for people aged 60 and older. Participants learn and perform a program of eight forms that progress from easy to more difficult. The program can accommodate persons with various physical conditions. Health Benefits of Norman Chi: Moving for Better Balance: Improved social and mental well-being, Improved balance and physical functioning, Improved confidence in conducting daily activities, Reduced risk of falling and sustaining associated injuries, and Maintained independence and improved quality of life. To find a Norman Chi program in your area or additional resources about fall prevention please contact: [facility] Violence and Injury Prevention Program at [phone] or [email or web address] A Matter of Balance: Managing Concerns about Falls is an evidence based program designed to reduce the fear of falling and increase activity levels of older adults. A trained facility service manager leads 8 two-hour sessions for small groups of older adults. The class is intended for people 60 and older who are at risk of falling have a fear of falling or restrict activities who have fallen in the past are interested in improving flexibility, balance, and strength. Participants will learn to view falls as controllable, set goals to increase activity levels, and reduce fall risks at home. Classes are offered in all [address] [place] [address] in [place]. For more information about specific classes near you, please visit http://aging.[place].gov/steadyu/resource s/matterofbalance.aspx. [facility] Low Risk Patient Instructions: Your Falls Screening today shows that you are at low risk for falls. To further protect yourself from falls and maintain your independence, we recommend: 1. Read through the brochure, What You Can Do to Prevent Falls (from CDC). 2. Go through the brochure, Check for Safety: A Home Fall Prevention Checklist for Older Adults (from [facility]), and make changes as recommended. 3. Join a community falls prevention program: Stepping On, a 7-week evidence based program that teaches balance exercises and fall prevention strategies Norman Chi for older adults, group exercise that teaches Norman Chi forms that reduce fall risk (weight shifting, postural alignment and control, and coordinated movements of the arms, legs, head, and trunk) Matter of Balance, an evidence based program designed to reduce the fear of falling and increase activity levels of older adults OR an exercise class for strength and balance. 4. Take your Vitamin D with or without Calcium, as determined by your healthcare provider. 5. Get your vision and hearing checked annually. Falls At Home Each year, thousands of older Americans fall at home. Many of them are seriously injured, and some are disabled. In 2011, nearly 23,000 people over age 65 and 2.4 million were treated in emergency departments because of falls. Falls are often due to hazards that are easy to overlook but easy to fix. This checklist will help you find and fix those hazards in your home. The checklist asks about hazards found in each room of your home. For each hazard, the checklist tells you how to fix the problem. At the end of the checklist, you ll find other tips for preventing falls. FLOORS: Look at the floor in each room. Q: When you walk through a room, do you have to walk around furniture? A. Ask someone to move the furniture so your path is clear Q: Do you have throw rugs on the floor? A. Remove the rugs or use double-sided tape or a non-slip backing so the rugs won t slip. Q: Are there papers, books, towels, shoes, magazines, boxes, blankets, or other objects on the floor? A.jewel cupping machine operator things that are on the floor. Always keep objects off the floor. Q: Do you have to walk over or around wires or cords (like lamp, telephone, or extension cords)? A. Coil or tape cords and wires next to the wall so you can t trip over them. If needed, have an nurses supervisor put in another outlet. STAIRS AND STEPS: Look at the stairs you use both inside and outside your home. Q: Are there papers, shoes, books, or other objects on the stairs? A. jewel cupping machine operator things on the stairs. Always keep objects off stairs. Q: Are some steps broken or uneven? A. Fix loose or uneven steps. Q: Are you missing a light over the stairway? A. Have an nurses supervisor put in an overhead light at the top and bottom of the stairs. Q: Do you have only one light switch for your stairs (only at the top or at the bottom of the stairs)? A. Have an nurses supervisor put in a light switch at the top and bottom of the stairs. You can get light switches that glow. Q: Has the stairway light bulb burned out? A. Have a friend or family member change the light bulb. Q: Is the carpet on the steps loose or torn? A. Make sure the carpet is firmly attached to every step, or remove the carpet and attach non-slip rubber treads to the stairs. Q: Are the handrails loose or broken? Is there a handrail on only one side of the stairs? A. Fix loose handrails or put in new ones. Make sure handrails are on both sides of the stairs and are as long as the stairs. KITCHEN: Look at your kitchen and eating area. Q: Are the things you use often on high shelves? A. Move items in your cabinets. Keep things you use often on the lower shelves (about waist level). Q: Is your step stool unsteady? A. If you must use a step stool, get one with a bar to hold on to. Never use a chair as a step stool. BATHROOMS: Look at all your bathrooms. Q: Is the tub or shower floor slippery? A. Put a non-slip rubber mat or self-stick strips on the floor of the tub or shower. Q: Do you need some support when you get in and out of the tub or up from the toilet? A. Have grab bars put in next to and inside the tub and next to the toilet. BEDROOMS: Look at all your bedrooms. Q: Is the light near the bed hard to reach? A. Place a lamp close to the bed where it s easy to reach. Q: Is the path from your bed to the bathroom dark? A. Put in a night-light so you can see where you re walking. Some night-lights go on by themselves after dark. Other Things You Can Do to Prevent Falls Do exercises that improve your balance and make your legs stronger. Exercise also helps you feel better and more confident. Have your doctor or pharmacist look at all the medicines you take, even aizs-wad-pxnnsit medicines. Some medicines can make you sleepy or dizzy. Have your eyes checked by an eye doctor at least once a year and update your glasses. Get up slowly after you sit or lie down. Wear shoes both inside and outside the house. Avoid going barefoot or wearing slippers. Improve the lighting in your home. Put in brighter light bulbs. Florescent bulbs are bright and cost less to use. It s safest to have uniform lighting in a room. Add lighting to dark areas. Hang lightweight curtains or shades to reduce glare. [place] a contrasting color on the top edge of all steps so you can see the stairs better. For example, use a light color paint on dark wood. To access this brochure online, please visit the CDC website at http://www.cdc.gov/steadi/pdf/check_fo r_safety_brochure-a.pdf Chair Rise Exercise What it does: Strengthens the muscles in your thighs & buttocks. Goal: To do this exercise without using your hands as you become stronger. How to do it: 1. Sit toward the front of a sturdy chair with your knees bent & feet flat on the floor shoulder-width apart 2. Rest your hands lightly on the seat on either side of you, keeping your back & neck straight & and chest slightly forward. 3. Breathe in slowly. Lean forward & feel your weight on the front of your feet. 4. Breathe out and slowly stand up, using your hands as little as possible. 5. Pause for a full breath in & out. 6. Breathe in as you slowly sit down. Do not let yourself collapse back down into the chair. Rather, control your lowering as much as possible. 7. Breathe out. Repeat 10-15 times. If this number is too hard for you when you first start practicing this exercise, begin with fewer and work up to this number. Rest for a minute & then do a final set of 10-15. For detailed instructions, please visit the CDC website at http://www.cdc.gov/steadi/pdf/chair_ri se_exercise-a.pdf Stepping On is an evidence based program proven to reduce falls in older adults. It is a workshop offered once a week for seven weeks. In a small-group setting, you will learn balance exercises and develop specific knowledge and skills to prevent falls. Older adults who should attend are those who: are at risk of falling who have fallen one or more times lives at home are able to walk without the help of another person Local guest experts provide information on exercise, safety, vision, and medications. Classes are offered at [facility]. To find out specifics about a class, please call [phone]. Norman chi: Moving for Better Balance involves low impact exercise. The 12-week class is offered for three hours per week and is led by a trained humanities instructor. It is intended for people aged 60 and older. Participants learn and perform a program of eight forms that progress from easy to more difficult. The program can accommodate persons with various physical conditions. Health Benefits of Norman Chi: Moving for Better Balance: Improved social and mental well-being, Improved balance and physical functioning, Improved confidence in conducting daily activities, Reduced risk of falling and sustaining associated injuries, and Maintained independence and improved quality of life. To find a Norman Chi program in your area or additional resources about fall prevention please contact: [facility] Violence and Injury Prevention Program at [phone] or [email or web address] A Matter of Balance: Managing Concerns about Falls is an evidence based program designed to reduce the fear of falling and increase activity levels of older adults. A trained facility service manager leads 8 two-hour sessions for small groups of older adults. The class is intended for people 60 and older who are at risk of falling have a fear of falling or restrict activities who have fallen in the past are interested in improving flexibility, balance, and strength. Participants will learn to view falls as controllable, set goals to increase activity levels, and reduce fall risks at home. Classes are offered in all [address] [place] [address] in [place]. For more information about specific classes near you, please visit http://aging.[place].gov/steadyu/resource s/matterofbalance.aspx. documented in this encounter [facility] 01-08-2024 Instructions Danny Rose MD - 01/08/2024 2:31 PM EDT [facility] Low Risk Patient Instructions: Your Falls Screening today shows that you are at low risk for falls. To further protect yourself from falls and maintain your independence, we recommend: 1. Read through the brochure, What You Can Do to Prevent Falls (from CDC). 2. Go through the brochure, Check for Safety: A Home Fall Prevention Checklist for Older Adults (from CDC), and make changes as recommended. 3. Join a community falls prevention program: Stepping On, a 7-week evidence based program that teaches balance exercises and fall prevention strategies Norman Chi for older adults, group exercise that teaches Norman Chi forms that reduce fall risk (weight shifting, postural alignment and control, and coordinated movements of the arms, legs, head, and trunk) Matter of Balance, an evidence based program designed to reduce the fear of falling and increase activity levels of older adults OR an exercise class for strength and balance. 4. Take your Vitamin D with or without Calcium, as determined by your healthcare provider. 5. Get your vision and hearing checked annually. Falls At Home Each year, thousands of older Americans fall at home. Many of them are seriously injured, and some are disabled. In 2011, nearly 23,000 people over age 65 and 2.4 million were treated in emergency departments because of falls. Falls are often due to hazards that are easy to overlook but easy to fix. This checklist will help you find and fix those hazards in your home. The checklist asks about hazards found in each room of your home. For each hazard, the checklist tells you how to fix the problem. At the end of the checklist, you ll find other tips for preventing falls. FLOORS: Look at the floor in each room. Q: When you walk through a room, do you have to walk around furniture? A. Ask someone to move the furniture so your path is clear Q: Do you have throw rugs on the floor? A. Remove the rugs or use double-sided tape or a non-slip backing so the rugs won t slip. Q: Are there papers, books, towels, shoes, magazines, boxes, blankets, or other objects on the floor? A.jewel cupping machine operator things that are on the floor. Always keep objects off the floor. Q: Do you have to walk over or around wires or cords (like lamp, telephone, or extension cords)? A. Coil or tape cords and wires next to the wall so you can t trip over them. If needed, have an nurses supervisor put in another outlet. STAIRS AND STEPS: Look at the stairs you use both inside and outside your home. Q: Are there papers, shoes, books, or other objects on the stairs? A. jewel cupping machine operator things on the stairs. Always keep objects off stairs. Q: Are some steps broken or uneven? A. Fix loose or uneven steps. Q: Are you missing a light over the stairway? A. Have an nurses supervisor put in an overhead light at the top and bottom of the stairs. Q: Do you have only one light switch for your stairs (only at the top or at the bottom of the stairs)? A. Have an nurses supervisor put in a light switch at the top and bottom of the stairs. You can get light switches that glow. Q: Has the stairway light bulb burned out? A. Have a friend or family member change the light bulb. Q: Is the carpet on the steps loose or torn? A. Make sure the carpet is firmly attached to every step, or remove the carpet and attach non-slip rubber treads to the stairs. Q: Are the handrails loose or broken? Is there a handrail on only one side of the stairs? A. Fix loose handrails or put in new ones. Make sure handrails are on both sides of the stairs and are as long as the stairs. KITCHEN: Look at your kitchen and eating area. Q: Are the things you use often on high shelves? A. Move items in your cabinets. Keep things you use often on the lower shelves (about waist level). Q: Is your step stool unsteady? A. If you must use a step stool, get one with a bar to hold on to. Never use a chair as a step stool. BATHROOMS: Look at all your bathrooms. Q: Is the tub or shower floor slippery? A. Put a non-slip rubber mat or self-stick strips on the floor of the tub or shower. Q: Do you need some support when you get in and out of the tub or up from the toilet? A. Have grab bars put in next to and inside the tub and next to the toilet. BEDROOMS: Look at all your bedrooms. Q: Is the light near the bed hard to reach? A. Place a lamp close to the bed where it s easy to reach. Q: Is the path from your bed to the bathroom dark? A. Put in a night-light so you can see where you re walking. Some night-lights go on by themselves after dark. Other Things You Can Do to Prevent Falls Do exercises that improve your balance and make your legs stronger. Exercise also helps you feel better and more confident. Have your doctor or pharmacist look at all the medicines you take, even ufvd-ghv-gigpous medicines. Some medicines can make you sleepy or dizzy. Have your eyes checked by an eye doctor at least once a year and update your glasses. Get up slowly after you sit or lie down. Wear shoes both inside and outside the house. Avoid going barefoot or wearing slippers. Improve the lighting in your home. Put in brighter light bulbs. Florescent bulbs are bright and cost less to use. It s safest to have uniform lighting in a room. Add lighting to dark areas. Hang lightweight curtains or shades to reduce glare. [place] a contrasting color on the top edge of all steps so you can see the stairs better. For example, use a light color paint on dark wood. To access this brochure online, please visit the CDC website at http://www.cdc.gov/steadi/pdf/check_fo r_safety_brochure-a.pdf Chair Rise Exercise What it does: Strengthens the muscles in your thighs & buttocks. Goal: To do this exercise without using your hands as you become stronger. How to do it: 1. Sit toward the front of a sturdy chair with your knees bent & feet flat on the floor shoulder-width apart 2. Rest your hands lightly on the seat on either side of you, keeping your back & neck straight & and chest slightly forward. 3. Breathe in slowly. Lean forward & feel your weight on the front of your feet. 4. Breathe out and slowly stand up, using your hands as little as possible. 5. Pause for a full breath in & out. 6. Breathe in as you slowly sit down. Do not let yourself collapse back down into the chair. Rather, control your lowering as much as possible. 7. Breathe out. Repeat 10-15 times. If this number is too hard for you when you first start practicing this exercise, begin with fewer and work up to this number. Rest for a minute & then do a final set of 10-15. For detailed instructions, please visit the CDC website at http://www.cdc.gov/steadi/pdf/chair_ri se_exercise-a.pdf Stepping On is an evidence based program proven to reduce falls in older adults. It is a workshop offered once a week for seven weeks. In a small-group setting, you will learn balance exercises and develop specific knowledge and skills to prevent falls. Older adults who should attend are those who: are at risk of falling who have fallen one or more times lives at home are able to walk without the help of another person Local guest experts provide information on exercise, safety, vision, and medications. Classes are offered at [facility]. To find out specifics about a class, please call [phone]. Norman chi: Moving for Better Balance involves low impact exercise. The 12-week class is offered for three hours per week and is led by a trained humanities instructor. It is intended for people aged 60 and older. Participants learn and perform a program of eight forms that progress from easy to more difficult. The program can accommodate persons with various physical conditions. Health Benefits of Norman Chi: Moving for Better Balance: Improved social and mental well-being, Improved balance and physical functioning, Improved confidence in conducting daily activities, Reduced risk of falling and sustaining associated injuries, and Maintained independence and improved quality of life. To find a Norman Chi program in your area or additional resources about fall prevention please contact: [facility] Violence and Injury Prevention Program at [phone] or [email or web address] A Matter of Balance: Managing Concerns about Falls is an evidence based program designed to reduce the fear of falling and increase activity levels of older adults. A trained facility service manager leads 8 two-hour sessions for small groups of older adults. The class is intended for people 60 and older who are at risk of falling have a fear of falling or restrict activities who have fallen in the past are interested in improving flexibility, balance, and strength. Participants will learn to view falls as controllable, set goals to increase activity levels, and reduce fall risks at home. Classes are offered in all [address] [place] [address] in [place]. For more information about specific classes near you, please visit http://aging.[place].gov/steadyu/resource s/matterofbalance.aspx. STEADI Low Risk Patient Instructions: Your Falls Screening today shows that you are at low risk for falls. To further protect yourself from falls and maintain your independence, we recommend: 1. Read through the brochure, What You Can Do to Prevent Falls (from [facility]). 2. Go through the brochure, Check for Safety: A Home Fall Prevention Checklist for Older Adults (from [facility]), and make changes as recommended. 3. Join a community falls prevention program: Stepping On, a 7-week evidence based program that teaches balance exercises and fall prevention strategies Norman Chi for older adults, group exercise that teaches Norman Chi forms that reduce fall risk (weight shifting, postural alignment and control, and coordinated movements of the arms, legs, head, and trunk) Matter of Balance, an evidence based program designed to reduce the fear of falling and increase activity levels of older adults OR an exercise class for strength and balance. 4. Take your Vitamin D with or without Calcium, as determined by your healthcare provider. 5. Get your vision and hearing checked annually. Falls At Home Each year, thousands of older Americans fall at home. Many of them are seriously injured, and some are disabled. In 2011, nearly 23,000 people over age 65 and 2.4 million were treated in emergency departments because of falls. Falls are often due to hazards that are easy to overlook but easy to fix. This checklist will help you find and fix those hazards in your home. The checklist asks about hazards found in each room of your home. For each hazard, the checklist tells you how to fix the problem. At the end of the checklist, you ll find other tips for preventing falls. FLOORS: Look at the floor in each room. Q: When you walk through a room, do you have to walk around furniture? A. Ask someone to move the furniture so your path is clear Q: Do you have throw rugs on the floor? A. Remove the rugs or use double-sided tape or a non-slip backing so the rugs won t slip. Q: Are there papers, books, towels, shoes, magazines, boxes, blankets, or other objects on the floor? A.jewel cupping machine operator things that are on the floor. Always keep objects off the floor. Q: Do you have to walk over or around wires or cords (like lamp, telephone, or extension cords)? A. Coil or tape cords and wires next to the wall so you can t trip over them. If needed, have an nurses supervisor put in another outlet. STAIRS AND STEPS: Look at the stairs you use both inside and outside your home. Q: Are there papers, shoes, books, or other objects on the stairs? A. jewel cupping machine operator things on the stairs. Always keep objects off stairs. Q: Are some steps broken or uneven? A. Fix loose or uneven steps. Q: Are you missing a light over the stairway? A. Have an nurses supervisor put in an overhead light at the top and bottom of the stairs. Q: Do you have only one light switch for your stairs (only at the top or at the bottom of the stairs)? A. Have an nurses supervisor put in a light switch at the top and bottom of the stairs. You can get light switches that glow. Q: Has the stairway light bulb burned out? A. Have a friend or family member change the light bulb. Q: Is the carpet on the steps loose or torn? A. Make sure the carpet is firmly attached to every step, or remove the carpet and attach non-slip rubber treads to the stairs. Q: Are the handrails loose or broken? Is there a handrail on only one side of the stairs? A. Fix loose handrails or put in new ones. Make sure handrails are on both sides of the stairs and are as long as the stairs. KITCHEN: Look at your kitchen and eating area. Q: Are the things you use often on high shelves? A. Move items in your cabinets. Keep things you use often on the lower shelves (about waist level). Q: Is your step stool unsteady? A. If you must use a step stool, get one with a bar to hold on to. Never use a chair as a step stool. BATHROOMS: Look at all your bathrooms. Q: Is the tub or shower floor slippery? A. Put a non-slip rubber mat or self-stick strips on the floor of the tub or shower. Q: Do you need some support when you get in and out of the tub or up from the toilet? A. Have grab bars put in next to and inside the tub and next to the toilet. BEDROOMS: Look at all your bedrooms. Q: Is the light near the bed hard to reach? A. Place a lamp close to the bed where it s easy to reach. Q: Is the path from your bed to the bathroom dark? A. Put in a night-light so you can see where you re walking. Some night-lights go on by themselves after dark. Other Things You Can Do to Prevent Falls Do exercises that improve your balance and make your legs stronger. Exercise also helps you feel better and more confident. Have your doctor or pharmacist look at all the medicines you take, even vzas-qid-dsrqtsx medicines. Some medicines can make you sleepy or dizzy. Have your eyes checked by an eye doctor at least once a year and update your glasses. Get up slowly after you sit or lie down. Wear shoes both inside and outside the house. Avoid going barefoot or wearing slippers. Improve the lighting in your home. Put in brighter light bulbs. Florescent bulbs are bright and cost less to use. It s safest to have uniform lighting in a room. Add lighting to dark areas. Hang lightweight curtains or shades to reduce glare. [place]ouster a contrasting color on the top edge of all steps so you can see the stairs better. For example, use a light color paint on dark wood. To access this brochure online, please visit the CDC website at http://www.cdc.gov/steadi/pdf/check_fo r_safety_brochure-a.pdf Chair Rise Exercise What it does: Strengthens the muscles in your thighs & buttocks. Goal: To do this exercise without using your hands as you become stronger. How to do it: 1. Sit toward the front of a sturdy chair with your knees bent & feet flat on the floor shoulder-width apart 2. Rest your hands lightly on the seat on either side of you, keeping your back & neck straight & and chest slightly forward. 3. Breathe in slowly. Lean forward & feel your weight on the front of your feet. 4. Breathe out and slowly stand up, using your hands as little as possible. 5. Pause for a full breath in & out. 6. Breathe in as you slowly sit down. Do not let yourself collapse back down into the chair. Rather, control your lowering as much as possible. 7. Breathe out. Repeat 10-15 times. If this number is too hard for you when you first start practicing this exercise, begin with fewer and work up to this number. Rest for a minute & then do a final set of 10-15. For detailed instructions, please visit the CDC website at http://www.cdc.gov/steadi/pdf/chair_ri se_exercise-a.pdf Stepping On is an evidence based program proven to reduce falls in older adults. It is a workshop offered once a week for seven weeks. In a small-group setting, you will learn balance exercises and develop specific knowledge and skills to prevent falls. Older adults who should attend are those who: are at risk of falling who have fallen one or more times lives at home are able to walk without the help of another person Local guest experts provide information on exercise, safety, vision, and medications. Classes are offered at [facility]. To find out specifics about a class, please call [phone]. Norman chi: Moving for Better Balance involves low impact exercise. The 12-week class is offered for three hours per week and is led by a trained humanities instructor. It is intended for people aged 60 and older. Participants learn and perform a program of eight forms that progress from easy to more difficult. The program can accommodate persons with various physical conditions. Health Benefits of Norman Chi: Moving for Better Balance: Improved social and mental well-being, Improved balance and physical functioning, Improved confidence in conducting daily activities, Reduced risk of falling and sustaining associated injuries, and Maintained independence and improved quality of life. To find a Norman Chi program in your area or additional resources about fall prevention please contact: [facility] Violence and Injury Prevention Program at [phone] or [email or web address] A Matter of Balance: Managing Concerns about Falls is an evidence based program designed to reduce the fear of falling and increase activity levels of older adults. A trained facility service manager leads 8 two-hour sessions for small groups of older adults. The class is intended for people 60 and older who are at risk of falling have a fear of falling or restrict activities who have fallen in the past are interested in improving flexibility, balance, and strength. Participants will learn to view falls as controllable, set goals to increase activity levels, and reduce fall risks at home. Classes are offered in all [address] [place] [address] in [place]. For more information about specific classes near you, please visit http://aging.[place].gov/steadyu/resource s/matterofbalance.aspx. documented in this encounter [facility] 01-08-2024 Note Subjective: Leslie Carcamo is a 73 y.o. female here for a Medicare Annual Wellness Visit. She has a history of end stage renal disease on HD, complications include gout, anemia, hyperparathyroidism. She also has diabetes and sees Dr. Figueroa. Any concerns/complaints: Hypertension- BP has actually been on the lower end after her dialysis. She has been trying to talk with nephrology but they continue to increase her medications. Knee pain- she is doing well after the steroids and didn't feel like she needed injections for it. She does live alone. Some steps up from the basement. She cooks and cleans. No issues with driving. Takes her own shower, no tub. She does her own bill pay, grocery shopping. Drives with no issues. Nutrition: 1/2 out and 1/2 cooking. Vegetables most days and fruit daily. Some meat daily. Moderate Carbs and sweets Water- 16 oz a day- restricted due to chronic conditions Coffee- 3 times a week Not much soda or juice Alcohol- about once a month Exercise: none Supplement: vitamin D and one a day Sleep: 6 hours Dentist: yes Any Family history of breast cancer, uterine cancer or ovarian cancer? no Any family history of colon cancer?no Obstetrics & gynecology History , Sexually active: no Any breast concerns? no Last mammogram: 2020 Last pap smear (HPV): none Last bone density scan: 2020 Last colon cancer screenin10/2021 Review of Systems Constitutional: Negative for diaphoresis and fatigue. Respiratory: Negative for chest tightness and shortness of breath. Cardiovascular: Negative for chest pain and leg swelling. Endocrine: Negative. Musculoskeletal: Negative for arthralgias, back pain and gait problem. Skin: Negative for rash. Neurological: Negative for dizziness and headaches. Psychiatric/Behavioral: Negative for sleep disturbance. Reviewed by Provider: Tobacco Allergies Meds Problems Med Hx Surg Hx Fam Hx Care Team Patient Care Team: Danny Rose MD as PCP - General (Family Medicine) Suleman Moreno MD as Consulting Physician (Urologic Surgery) Yan Campbell MD as Surgeon (Vascular Surgery) Chris Ford MD as Consulting Physician (Nephrology) Spencer Nina II, MD as Consulting Physician (Ophthalmology) Ryan Hardin MD (Endocrinology/Metabolism) Pharmacy / Equipment Co. (DME) [facility]/pharmacy #[id number] - [place], [place] - [address] [place] [address] [facility] [address] [facility] [id number] [facility] - [facility] AT Portal to [facility] Sites [facility] Stephanie [place] [id number] Medicare Risk Assessment Do you have an Advanced Directive (Living Will and/or Durable Power of Almond Blancher for Health Care)? If not, would you like more information about Advanced Directives?: No- I do want more information What is your exercise level?: Light (like stretching/slow walking) What is your diet?: Diabetic Can you prepare your own meals?: Yes Do you have trouble with finding transportation?: No Because of any health problems, do you need the help of another person with your personal care needs? (For example, eating, bathing, dressing, or getting around the house.): No Does your home have throw rugs, poor lighting or slippery bathtub or shower?: (!) Throw Rugs Does your home have grab bars in bathrooms or handrails on stairs and steps?: Both grab bars in the bathroom and Handrails on the stairs During the past four weeks, how would you rate your health in general?: Fair Whether or not you use a hearing aid, do you think you have a hearing problem or do others think you have a hearing problem?: (!) Yes (sometimes) Whether or not you use glasses or contacts, do you have difficulty driving, watching television, reading, or doing any of your daily activities because of your eyesight?: No In the past six months, have you had an unexplained weight loss of 10 pounds or more?: No Do you take your medications as prescribed?: I do not miss doses of my medications During the past four weeks, how much have you been bothered by emotional problems such as feeling anxious, depressed, irritable, sad, or downhearted and blue?: Not at all During the past four weeks, has your physical and emotional health limited your social activites with family, friends, neighbors, or groups? : Slightly Falls Risk Assessment Is Patient Ambulatory?: Y Fell in past year: 0 (No) How many falls in the past year?: 0 Did any of these falls result in an injury?: No Unsteady when walks: 0 (No) Worried about fallin (No) Advised to use cane/walker?: 0 (No) Type of assistive device: N/A Holds onto furniture/herzog: 0 (No) Uses hands to stand up from a chair: 1 (Yes) (sometimes) Trouble stepping onto curb: 0 (No) Rushes to toilet: 0 (No) Lost fe (more content not included)... [facility] 01-08-2024 History of Present illness Narrative Subjective: Leslie Carcamo is a 73 y.o. female here for a Medicare Annual Wellness Visit. She has a history of end stage renal disease on HD, complications include gout, anemia, hyperparathyroidism. She also has diabetes and sees Dr. Figueroa. Any concerns/complaints: Hypertension- BP has actually been on the lower end after her dialysis. She has been trying to talk with nephrology but they continue to increase her medications. Knee pain- she is doing well after the steroids and didn't feel like she needed injections for it. She does live alone. Some steps up from the basement. She cooks and cleans. No issues with driving. Takes her own shower, no tub. She does her own bill pay, grocery shopping. Drives with no issues. Nutrition: 1/2 out and 1/2 cooking. Vegetables most days and fruit daily. Some meat daily. Moderate Carbs and sweets Water- 16 oz a day- restricted due to chronic conditions Coffee- 3 times a week Not much soda or juice Alcohol- about once a month Exercise: none Supplement: vitamin D and one a day Sleep: 6 hours Dentist: yes Any Family history of breast cancer, uterine cancer or ovarian cancer? no Any family history of colon cancer?no Obstetrics & gynecology History , Sexually active: no Any breast concerns? no Last mammogram: 2020 Last pap smear (HPV): none Last bone density scan: 2020 Last colon cancer screenin10/2021 Review of Systems Constitutional: Negative for diaphoresis and fatigue. Respiratory: Negative for chest tightness and shortness of breath. Cardiovascular: Negative for chest pain and leg swelling. Endocrine: Negative. Musculoskeletal: Negative for arthralgias, back pain and gait problem. Skin: Negative for rash. Neurological: Negative for dizziness and headaches. Psychiatric/Behavioral: Negative for sleep disturbance. Reviewed by Provider: Tobacco Allergies Meds Problems Med Hx Surg Hx Fam Hx Care Team Patient Care Team: Danny Rose MD as PCP - General (Family Medicine) Suleman Moreno MD as Consulting Physician (Urologic Surgery) Yan Campbell MD as Surgeon (Vascular Surgery) Chris Ford MD as Consulting Physician (Nephrology) Spencer Nina II, MD as Consulting Physician (Ophthalmology) Ryan Hardin MD (Endocrinology/Metabolism) Pharmacy / Equipment Co. (DME) [facility]/pharmacy #[id number] - [address] AT [place] [id number] [facility] Pharm[facility] - RENZO Brown - [facility] AT Portal to [facility] Stephanie MULLER [id number] Medicare Risk Assessment Do you have an Advanced Directive (Living Will and/or Durable Power of Almond Blancher for Health Care)? If not, would you like more information about Advanced Directives?: No- I do want more information What is your exercise level?: Light (like stretching/slow walking) What is your diet?: Diabetic Can you prepare your own meals?: Yes Do you have trouble with finding transportation?: No Because of any health problems, do you need the help of another person with your personal care needs? (For example, eating, bathing, dressing, or getting around the house.): No Does your home have throw rugs, poor lighting or slippery bathtub or shower?: (!) Throw Rugs Does your home have grab bars in bathrooms or handrails on stairs and steps?: Both grab bars in the bathroom and Handrails on the stairs During the past four weeks, how would you rate your health in general?: Fair Whether or not you use a hearing aid, do you think you have a hearing problem or do others think you have a hearing problem?: (!) Yes (sometimes) Whether or not you use glasses or contacts, do you have difficulty driving, watching television, reading, or doing any of your daily activities because of your eyesight?: No In the past six months, have you had an unexplained weight loss of 10 pounds or more?: No Do you take your medications as prescribed?: I do not miss doses of my medications During the past four weeks, how much have you been bothered by emotional problems such as feeling anxious, depressed, irritable, sad, or downhearted and blue?: Not at all During the past four weeks, has your physical and emotional health limited your social activites with family, friends, neighbors, or groups? : Slightly Falls Risk Assessment Is Patient Ambulatory?: Y Fell in past year: 0 (No) How many falls in the past year?: 0 Did any of these falls result in an injury?: No Unsteady when walks: 0 (No) Worried about fallin (No) Advised to use cane/walker?: 0 (No) Type of assistive device: N/A Holds onto furniture/herzog: 0 (No) Uses hands to stand up from a chair: 1 (Yes) (sometimes) Trouble stepping onto curb: 0 (No) Rushes to toilet: 0 (No) Lost feeling in feet: 0 (No) Medicine makes me light-headed: 0 (No) Medicine for sleep or mood: 0 (No) Often feel sad/depressed: 0 (No) Patient Self Risk Assessment Score: 1 Medicare Mini Cog Step 1: Three Word Registration Version Used: Version 1: Katie Bryant Chair Step 2: Clock Drawing Step 2 score: Normal clock - 2 points Clock has all numbers placed in the correct sequence & position (e.g., 12, 3, 6 and 9 are in anchor positions) with no missing or duplicate numbers. Hands are pointing to the 11 & 2 (11:10). Hand length is not scored. Step 3: Three Word Recall Record patient's answers to the right: Chair, sunrise, Step 3: Three Word Recall Score: 2 Words Recalled Total score = Word Recall score + Clock Draw score A cut point of <3 on the Mini-Cog has been validated for dementia screening, but many individuals with clinically meaningful cognitive impairment will score higher. A cut point of <4 may indicate a need for further evaluation of cognitive status.: 4 5-Year Plan: Health Maintenance Topic Date Due Tetanus: Every 10yrs Never done Dexa Scan Never done Mammogram 08/24/2021 Urine Microalbumin 01/26/2023 Diabetic Eye Exam 04/19/2023 Diabetic Foot Exam 01/03/2024 COVID-19 Vaccine ( season) 2024 (Originally 01/11/2023) Pneumococcal Vaccine: Age 65+ (1 of 2 - PCV) 01/07/2025 (Originally 11/12/1956) Zoster Vaccines (1 of 2) 01/07/2025 (Originally 11/12/2001) Influenza Vaccine (1) 01/12/2024 A1C 07/10/2024 Falls Risk Assessment 01/05/2025 Depression Screening/Follow-Up (PHQ-2/9) 01/05/2025 Medicare Wellness Visit 01/07/2025 Colorectal Cancer Screening/Monitoring 10/18/2026 Hepatitis C Screening Completed Immunization History Administered Date(s) Administered Hepatitis B 01/05/1997, 02/12/1997, 07/19/1997 INFLUENZA IIV4 18 YO OR > FLUBLOK QUAD [id number] 02/18/2023 Influenza IIV4 high dose 65 and Older 02/27/2022 Moderna SARS-CoV-2 Vaccination 07/06/2021 Pfizer SARS-CoV-2 Vaccination 11/27/2020, 12/17/2020 Td, Unspecified 03/04/2000 Objective: BP (!) 108/57 (BP Location: Right arm, Patient Position: Sitting, BP Cuff Size: X-large Adult) Pulse 62 Temp 98.5 F (36.9 C) (Temporal) Resp 16 Ht 5' 6 Wt 84.5 kg (186 lb 3.2 oz) SpO2 98% BMI 30.05 kg/m Physical Exam Vitals reviewed. Constitutional: General: She is not in acute distress. Appearance: She is obese. She is not ill-appearing. HENT: Head: Normocephalic. Eyes: Conjunctiva/sclera: Conjunctivae normal. Neck: Thyroid: Thyroid mass present. No thyroid tenderness. Cardiovascular: Rate and Rhythm: Normal rate and regular rhythm. Pulmonary: Effort: Pulmonary effort is normal. No respiratory distress. Breath sounds: Normal breath sounds. No wheezing. Abdominal: General: Bowel sounds are normal. There is no distension. Palpations: Abdomen is soft. Tenderness: There is no abdominal tenderness. There is no guarding or rebound. Musculoskeletal: Cervical back: Normal range of motion. Right lower leg: No edema. Left lower leg: No edema. Skin: Findings: No rash. Neurological: Mental Status: She is alert. Mental status is at baseline. Psychiatric: Mood and Affect: Mood normal. Behavior: Behavior normal. Assessment/Plan: Problem List Items Addressed This Visit Endocrine Type 2 diabetes 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, with long-term current use of insulin (HCC) Chronic, follows with endocrinology. Taking insulin as needed for now. Relevant Orders Hemoglobin A1c (Completed) Cardiovascular and Mediastinum Essential hypertension Chronic, managed by nephrology. Several medication adjustments. She is on Hydralazine so educated her on when to not take it and should call if low. Goal < 130/80. Relevant Orders CBC and Differential (Completed) TSH (Completed) T4, Free (Completed) Comprehensive Metabolic Panel (Completed) Other Mixed hyperlipidemia Chronic, on statin. Recommend continuing. She is high risk for CVD and has a history of diabetes The 10-year ASCVD risk score (Izabela TA, et al., 2019) is: 20.6% Values used to calculate the score: Age: 73 years Sex: Female Is Non- : Yes Diabetic: Yes Tobacco smoker: No Systolic Blood Pressure: 108 mmHg Is BP treated: Yes HDL Cholesterol: 59 mg/dL Total Cholesterol: 179 mg/dL Relevant Orders Lipid Panel (Completed) Medicare annual wellness visit, subsequent - Primary -Counseled on healthy diet. -Counseled on importance of exercise - 150mins/ week of moderate activity as tolerated -Depression screening was negative -Tobacco counseling not indicated -Alcohol screening negative -Immunizations reviewed. -Discussed pap recommendations: no longer indicated -Discussed breast cancer screening: due now, she states she has an appt with mechanic general operational test soon -Discussed colon cancer screening: up to date -Discussed osteoporosis screening: up to date Acute pain of right knee Improved after steroid taper. She did see orthopedics and Xray was ordered. No results to review. If symptoms return, I'd recommend that she follows back up with orthopedics. Other Visit Diagnoses At low risk for fall Thyroid nodule new finding noted on exam today. hard nodule on the left thyroid. will get an US. Relevant Orders US Thyroid Only Vaccination counseling provided but patient/guardian declined. Discussed elevated Body Mass Index (BMI): Advised regular exercise. Discussed elevated Body Mass Index (BMI): Advised healthy and appropriate diet. Rationale: Overweight (Findings) BMI Return in about 6 months (around 07/10/2024) for Chronic care f/u . Patient Instructions (the written plan) and additional handouts provided to the patient with their After Visit Summary. 03/26/2018 8:30 PM 07/21/2020 3:00 PM 05/08/2021 2:00 PM 01/02/2023 3:00 PM 01/06/2024 4:00 PM Depression Screening Little interest or pleasure in doing things 0 0 1 0 0 Feeling down, depressed, or hopeless 0 0 1 0 0 PHQ-2 Total Score 0 0 2 0 0 Trouble falling or staying asleep, or sleeping too much 0 1 Feeling tired or having little energy 0 2 Poor appetite or overeating 0 2 Feeling bad about yourself - or that you are a failure or have let yourself or your family down 0 0 Trouble concentrating on things, such as reading the newspaper or watching television 0 0 Moving or speaking so slowly that other people could have noticed. Or the opposite - being so fidgety or restless that you have been moving around a lot more than usual 0 1 Thoughts that you would be better off , or of hurting yourself in some way 0 0 PHQ-9 Total Score 0 8 If you checked off any problems, how difficult have these problems made it for you to do your work, take care of things at home, or get along with other people? Not difficult at all documented in this encounter [facility] 01-08-2024 History of Present illness Narrative Subjective: Leslie Carcamo is a 73 y.o. female here for a Medicare Annual Wellness Visit. She has a history of end stage renal disease on HD, complications include gout, anemia, hyperparathyroidism. She also has diabetes and sees Dr. Figueroa. Any concerns/complaints: Hypertension- BP has actually been on the lower end after her dialysis. She has been trying to talk with nephrology but they continue to increase her medications. Knee pain- she is doing well after the steroids and didn't feel like she needed injections for it. She does live alone. Some steps up from the basement. She cooks and cleans. No issues with driving. Takes her own shower, no tub. She does her own bill pay, grocery shopping. Drives with no issues. Nutrition: 1/2 out and 1/2 cooking. Vegetables most days and fruit daily. Some meat daily. Moderate Carbs and sweets Water- 16 oz a day- restricted due to chronic conditions Coffee- 3 times a week Not much soda or juice Alcohol- about once a month Exercise: none Supplement: vitamin D and one a day Sleep: 6 hours Dentist: yes Any Family history of breast cancer, uterine cancer or ovarian cancer? no Any family history of colon cancer?no Obstetrics & gynecology History , Sexually active: no Any breast concerns? no Last mammogram: 2020 Last pap smear (HPV): none Last bone density scan: 2020 Last colon cancer screenin10/2021 Review of Systems Constitutional: Negative for diaphoresis and fatigue. Respiratory: Negative for chest tightness and shortness of breath. Cardiovascular: Negative for chest pain and leg swelling. Endocrine: Negative. Musculoskeletal: Negative for arthralgias, back pain and gait problem. Skin: Negative for rash. Neurological: Negative for dizziness and headaches. Psychiatric/Behavioral: Negative for sleep disturbance. Reviewed by Provider: Tobacco Allergies Meds Problems Med Hx Surg Hx Fam Hx Care Team Patient Care Team: Danny Rose MD as PCP - General (Family Medicine) Suleman Moreno MD as Consulting Physician (Urologic Surgery) Yan Campbell MD as Surgeon (Vascular Surgery) Chris Ford MD as Consulting Physician (Nephrology) Spencer Nina II, MD as Consulting Physician (Ophthalmology) Ryan Hardin MD (Endocrinology/Metabolism) Pharmacy / Equipment Co. (DME) [facility]/pharmacy #[id number] AT [facility] [address] [place] [id number] [facility] Pharm[facility] - RENZO Brown - Essie Adkins AT Portal to [facility] Sites [facility] Stephanie M[place] [id number] Medicare Risk Assessment Do you have an Advanced Directive (Living Will and/or Durable Power of Almond Blancher for Health Care)? If not, would you like more information about Advanced Directives?: No- I do want more information What is your exercise level?: Light (like stretching/slow walking) What is your diet?: Diabetic Can you prepare your own meals?: Yes Do you have trouble with finding transportation?: No Because of any health problems, do you need the help of another person with your personal care needs? (For example, eating, bathing, dressing, or getting around the house.): No Does your home have throw rugs, poor lighting or slippery bathtub or shower?: (!) Throw Rugs Does your home have grab bars in bathrooms or handrails on stairs and steps?: Both grab bars in the bathroom and Handrails on the stairs During the past four weeks, how would you rate your health in general?: Fair Whether or not you use a hearing aid, do you think you have a hearing problem or do others think you have a hearing problem?: (!) Yes (sometimes) Whether or not you use glasses or contacts, do you have difficulty driving, watching television, reading, or doing any of your daily activities because of your eyesight?: No In the past six months, have you had an unexplained weight loss of 10 pounds or more?: No Do you take your medications as prescribed?: I do not miss doses of my medications During the past four weeks, how much have you been bothered by emotional problems such as feeling anxious, depressed, irritable, sad, or downhearted and blue?: Not at all During the past four weeks, has your physical and emotional health limited your social activites with family, friends, neighbors, or groups? : Slightly Falls Risk Assessment Is Patient Ambulatory?: Y Fell in past year: 0 (No) How many falls in the past year?: 0 Did any of these falls result in an injury?: No Unsteady when walks: 0 (No) Worried about fallin (No) Advised to use cane/walker?: 0 (No) Type of assistive device: N/A Holds onto furniture/herzog: 0 (No) Uses hands to stand up from a chair: 1 (Yes) (sometimes) Trouble stepping onto curb: 0 (No) Rushes to toilet: 0 (No) Lost feeling in feet: 0 (No) Medicine makes me light-headed: 0 (No) Medicine for sleep or mood: 0 (No) Often feel sad/depressed: 0 (No) Patient Self Risk Assessment Score: 1 Medicare Mini Cog Step 1: Three Word Registration Version Used: Version 1: Banana, [place], Chair Step 2: Clock Drawing Step 2 score: Normal clock - 2 points Clock has all numbers placed in the correct sequence & position (e.g., 12, 3, 6 and 9 are in anchor positions) with no missing or duplicate numbers. Hands are pointing to the 11 & 2 (11:10). Hand length is not scored. Step 3: Three Word Recall Record patient's answers to the right: Chair, sunrise, Step 3: Three Word Recall Score: 2 Words Recalled Total score = Word Recall score + Clock Draw score A cut point of <3 on the Mini-Cog has been validated for dementia screening, but many individuals with clinically meaningful cognitive impairment will score higher. A cut point of <4 may indicate a need for further evaluation of cognitive status.: 4 5-Year Plan: Health Maintenance Topic Date Due Tetanus: Every 10yrs Never done Dexa Scan Never done Mammogram 08/24/2021 Urine Microalbumin 01/26/2023 Diabetic Eye Exam 04/19/2023 Diabetic Foot Exam 01/03/2024 COVID-19 Vaccine ( - 2022- season) 2024 (Originally 01/11/2023) Pneumococcal Vaccine: Age 65+ (1 of 2 - PCV) 01/07/2025 (Originally 11/12/1957) Zoster Vaccines (1 of 2) 01/07/2025 (Originally 11/12/2001) Influenza Vaccine (1) 01/12/2024 A1C 07/10/2024 Falls Risk Assessment 01/05/2025 Depression Screening/Follow-Up (PHQ-2/9) 01/05/2025 Medicare Wellness Visit 01/07/2025 Colorectal Cancer Screening/Monitoring 10/18/2026 Hepatitis C Screening Completed Immunization History Administered Date(s) Administered Hepatitis B 01/05/1997, 02/12/1997, 07/19/1997 INFLUENZA IIV4 18 YO OR > FLUBLOK QUAD [id number] 02/18/2023 Influenza IIV4 high dose 65 and Older 02/27/2022 Moderna SARS-CoV-2 Vaccination 07/06/2021 Pfizer SARS-CoV-2 Vaccination 11/27/2020, 12/17/2020 Td, Unspecified 03/04/2000 Objective: BP (!) 108/57 (BP Location: Right arm, Patient Position: Sitting, BP Cuff Size: X-large Adult) Pulse 62 Temp 98.5 F (36.9 C) (Temporal) Resp 16 Ht 5' 6 Wt 84.5 kg (186 lb 3.2 oz) SpO2 98% BMI 30.05 kg/m Physical Exam Vitals reviewed. Constitutional: General: She is not in acute distress. Appearance: She is obese. She is not ill-appearing. HENT: Head: Normocephalic. Eyes: Conjunctiva/sclera: Conjunctivae normal. Neck: Thyroid: Thyroid mass present. No thyroid tenderness. Cardiovascular: Rate and Rhythm: Normal rate and regular rhythm. Pulmonary: Effort: Pulmonary effort is normal. No respiratory distress. Breath sounds: Normal breath sounds. No wheezing. Abdominal: General: Bowel sounds are normal. There is no distension. Palpations: Abdomen is soft. Tenderness: There is no abdominal tenderness. There is no guarding or rebound. Musculoskeletal: Cervical back: Normal range of motion. Right lower leg: No edema. Left lower leg: No edema. Skin: Findings: No rash. Neurological: Mental Status: She is alert. Mental status is at baseline. Psychiatric: Mood and Affect: Mood normal. Behavior: Behavior normal. Assessment/Plan: Problem List Items Addressed This Visit Endocrine Type 2 diabetes 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, with long-term current use of insulin (HCC) Chronic, follows with endocrinology. Taking insulin as needed for now. Relevant Orders Hemoglobin A1c (Completed) Cardiovascular and Mediastinum Essential hypertension Chronic, managed by nephrology. Several medication adjustments. She is on Hydralazine so educated her on when to not take it and should call if low. Goal < 130/80. Relevant Orders CBC and Differential (Completed) TSH (Completed) T4, Free (Completed) Comprehensive Metabolic Panel (Completed) Other Mixed hyperlipidemia Chronic, on statin. Recommend continuing. She is high risk for CVD and has a history of diabetes The 10-year ASCVD risk score (Izabela TA, et al., 2019) is: 20.6% Values used to calculate the score: Age: 73 years Sex: Female Is Non- : Yes Diabetic: Yes Tobacco smoker: No Systolic Blood Pressure: 108 mmHg Is BP treated: Yes HDL Cholesterol: 59 mg/dL Total Cholesterol: 179 mg/dL Relevant Orders Lipid Panel (Completed) Medicare annual wellness visit, subsequent - Primary -Counseled on healthy diet. -Counseled on importance of exercise - 150mins/ week of moderate activity as tolerated -Depression screening was negative -Tobacco counseling not indicated -Alcohol screening negative -Immunizations reviewed. -Discussed pap recommendations: no longer indicated -Discussed breast cancer screening: due now, she states she has an appt with mechanic general operational test soon -Discussed colon cancer screening: up to date -Discussed osteoporosis screening: up to date Acute pain of right knee Improved after steroid taper. She did see orthopedics and Xray was ordered. No results to review. If symptoms return, I'd recommend that she follows back up with orthopedics. Other Visit Diagnoses At low risk for fall Thyroid nodule new finding noted on exam today. hard nodule on the left thyroid. will get an US. Relevant Orders US Thyroid Only Vaccination counseling provided but patient/guardian declined. Discussed elevated Body Mass Index (BMI): Advised regular exercise. Discussed elevated Body Mass Index (BMI): Advised healthy and appropriate diet. Rationale: Overweight (Findings) BMI Return in about 6 months (around 07/10/2024) for Chronic care f/u . Patient Instructions (the written plan) and additional handouts provided to the patient with their After Visit Summary. 03/26/2018 8:30 PM 07/21/2020 3:00 PM 05/08/2021 2:00 PM 01/02/2023 3:00 PM 01/06/2024 4:00 PM Depression Screening Little interest or pleasure in doing things 0 0 1 0 0 Feeling down, depressed, or hopeless 0 0 1 0 0 PHQ-2 Total Score 0 0 2 0 0 Trouble falling or staying asleep, or sleeping too much 0 1 Feeling tired or having little energy 0 2 Poor appetite or overeating 0 2 Feeling bad about yourself - or that you are a failure or have let yourself or your family down 0 0 Trouble concentrating on things, such as reading the newspaper or watching television 0 0 Moving or speaking so slowly that other people could have noticed. Or the opposite - being so fidgety or restless that you have been moving around a lot more than usual 0 1 Thoughts that you would be better off , or of hurting yourself in some way 0 0 PHQ-9 Total Score 0 8 If you checked off any problems, how difficult have these problems made it for you to do your work, take care of things at home, or get along with other people? Not difficult at all documented in this encounter [facility] 01-07-2024 History of Present illness Narrative [facility] [address] [facility] [address] [facility] [id number] Assessment/Plan: Arthritis of right knee as well as differential considerations including meniscal derangement as well as options for treatment were discussed with patient in clinic today. Leslie valle declines a cortisone injection at today's visit but states she may consider one in the future. She states the brace was aggravating. She would like to proceed forward with physical therapy at the [facility] medical office building. Leslie Carcamo was agreeable to the plan and there were no learning barriers encountered. HPI: 01/07/2024: Leslie Carcamo is a pleasant 73 y.o. female seen as a new patient referred for right knee pain. Symptoms began a couple months ago with no known injury. Symptoms are located anterior lateral, described as dull and achy and occur intermittently. Symptoms also include intermittent swelling and intermittent instability. Symptoms do not include popping, clicking, cracking, catching/locking. Patient was prescribed prednisone at the end of November and again on December 23, patient states that the prednisone did help with symptoms. She also takes Tylenol arthritis. Symptoms are worse with standing after prolonged sitting, stairs and prolonged walking. She rates her pain as a 1/10 at today's visit and states it was a 10/10 when symptoms were exacerbated. She states she did try a brace but it made her symptoms worse. Additional formal treatment measures include: Primary care provider 12/24/2023, reviewed note. History of diabetes 06/15/2023 hemoglobin A1c 6.4. Not a smoker. History: Past Medical History: Diagnosis Date Anemia Chronic kidney disease (CKD) only one and 1/2 kidney Chronic kidney disease (CKD), active medical management without dialysis, stage 5 (HCC) Diabetes mellitus, type 2 (HCC) Dialysis patient (HCC) Diverticulosis 10/2021 Fibroid Glaucoma Gout H. pylori infection 10/2021 History of stress test 2016 screening and patient reports was normal Hyperlipidemia Hypertension Renal cell carcinoma (HCC) 02/06/2018 Right papillary renal cell carcinoma pT1a, pNX (stage I) s/p right nephrectomy Past Surgical History: Procedure Laterality Date COLONOSCOPY N/A 10/18/2021 Procedure: COLONOSCOPY with polypectomy; Surgeon: Chris Stovall MD; [place] [facility]; Service: Gastroenterology CV IR INTERVENTIONAL RADIOLOGY N/A 11/14/2021 Procedure: IR DIALYSIS CATHETER INSERTION TUNNELED; Surgeon: Gerhard Walker MD; Location: IR LAB; Service: Interventional Radiology CV IR INTERVENTIONAL RADIOLOGY N/A 06/19/2022 Procedure: VR Fistulagram w/Intervention; Surgeon: Yan Campbell MD; Location: IR LAB; Service: Interventional Radiology CV IR INTERVENTIONAL RADIOLOGY N/A 11/08/2022 Procedure: VR Dialysis Catheter Removal; Surgeon: Froilan Lang MD; Location: IR LAB; Service: Interventional Radiology CV IR INTERVENTIONAL RADIOLOGY N/A 04/02/2023 Procedure: VR Dialysis Cath Insert Tunnel; Surgeon: Matt Mathias PA-C; Location: IR LAB; Service: Interventional Radiology EGD N/A 10/18/2021 Procedure: ESOPHAGOGASTRODUODENOSCOPY with biopsy and polypectomy; Surgeon: Chris Stovall MD; [place] [facility] Service: Gastroenterology fatty tumor removed fibroid removed uterine FISTULA ARTERIOVENOUS Left 04/23/2022 Procedure: Attempted LEFT BRACHIOBASILIC FISTULA CREATION; Surgeon: Yan Campbell MD; Location: Main OR; Service: Gen-Vascular FISTULA ARTERIOVENOUS Left 05/16/2022 Procedure: LEFT UPPER EXTREMITY ARTERIOVENOUS Graft with Propaten PTFE GRAFT INSERTION; Surgeon: Yan Campbell MD; Location: Main OR; Service: Gen-Vascular HERNIA REPAIR HYSTERECTOMY NEPHRECTOMY PARTIAL ROBOTIC XI STAGE 2 Right 03/26/2018 Procedure: RIGHT ROBOTIC ASSISTED LAPAROSCOPIC PARTIAL NEPHRECTOMY LEVEL 2; Surgeon: Nasim Gaspar MD; Location: [facility] Main OR; Service: Urology Family History Problem Relation Age of Onset Hypertension Mother Brain cancer Mother No Known Problems Father Hypertension Sister Heart failure Sister SISTER Lung cancer Brother Hypertension Brother Non-Hodgkin's Lymphoma Daughter Stroke Daughter Hypertension Daughter Surgical complications Neg Hx Anesthesia problems Neg Hx Heart disease Neg Hx Clotting disorder Neg Hx Deep vein thrombosis Neg Hx Pulmonary embolism Neg Hx Social History Tobacco Use Smoking status: Never Smokeless tobacco: Never Vaping Use Vaping status: Never Used Substance Use Topics Alcohol use: Not Currently Comment: socially Drug use: No Outpatient Medications as of 01/07/2024 Medication Sig Accu-Chek Guide Glucose Meter Misc USE TEST BLOOD SUGAR 3 TIMES A DAY allopurinoL (ZYLOPRIM) 100 MG tablet Take 1.5 (one and a half) tablets (150 mg total) by mouth daily . amLODIPine (NORVASC) 10 MG tablet Take 1 (one) tablet (10 mg total) by mouth daily AM . aspirin 81 mg chewable tablet Chew and Swallow 1 (one) tablet (81 mg total) daily AM . atorvastatin (LIPITOR) 40 MG tablet Take 1 (one) tablet (40 mg total) by mouth every morning Reasons: high cholesterol. carvediloL (COREG) 25 MG tablet Take 1 (one) tablet (25 mg total) by mouth 2 (two) times a day with meals . dorzolamide-timoloL (COSOPT) 22.3-6.8 mg/mL ophthalmic solution Administer 1 (one) drop to both eyes 2 (two) times a day . dulaglutide (Trulicity) 1.5 mg/0.5 mL Pen Inject 0.5 mL (1.5 mg total) under the skin once a week . FreeStyle Lite Strips strips TEST 3 TIMES DAILY DIRECTED furosemide (LASIX) 40 MG tablet 1 tab and 2 tab alternate days . (Patient taking differently: Take 1 (one) tablet (40 mg total) by mouth daily .) hydrALAZINE (APRESOLINE) 50 MG tablet Take 1 (one) tablet (50 mg total) by mouth 2 (two) times a day . insulin degludec (Tresiba FlexTouch U-200) 200 unit/mL (3 mL) InPn Inject 10 (ten) Units under the skin nightly . (Patient taking differently: Inject 10 (ten) Units under the skin nightly PRN .) Velphoro 500 mg Chew CRUSH OR CHEW AND SWALLOW 1 TABLET 3 TIMES A DAY WITH MEALS Vitamin D2 1,250 mcg (50,000 unit) capsule TAKE 1 CAPSULE BY MOUTH ONCE PER WEEK (WEEKLY) FOR 10 WEEKS THEN START MONTHLY DOSES No Known Allergies Review of Systems: A review of systems was completed by Leslie sampson and reviewed by Desiree Jacobo CNP. Negative for chest pain, shortness of breath, dizziness or lightheadedness at today's visit. Objective Exam: General: no acute distress Appearance: Appears stated age Neurologic: Patient is alert and oriented x3 pleasant and cooperative. Mood and affect: Normal HEENT: normocephalic, attraumatic. Pulm: respiratory effort is normal Focused musculoskeletal exam: Ambulates without an assistive device. Right hip internal extra rotation without reproducible pain. Right knee with tenderness to palpation over the lateral joint line. Active range of motion approximately 0-110 degrees. Crepitus noted throughout arc of motion. Positive Elton's. Negative varus/valgus stress test. Skin dry and intact negative for increased warmth. Negative tenderness to palpation right popliteal fossa. Right, negative for tenderness, erythema or increased warmth. Distal neurovascular is grossly intact. Radiographs: 4 view weightbearing right knee x-rays 01/07/2024 formal radiology read pending. X-rays reviewed today in clinic and discussed with patient. Initial impression: Degenerative changes. Please Note: Portions of this chart have been created with Apse voice recognition software. Occasional wrong-word or sound-like substitutions may have occurred due to inherent limitations of the voice recognition software. Please read the chart carefully and recognize, using context, where the substitutions have occurred. documented in this encounter [facility] 01-07-2024 Note [facility] [address] [facility] [address] [facility] [id number] Assessment/Plan: Arthritis of right knee as well as differential considerations including meniscal derangement as well as options for treatment were discussed with patient in clinic today. Leslie valle declines a cortisone injection at today's visit but states she may consider one in the future. She states the brace was aggravating. She would like to proceed forward with physical therapy at the [facility] medical office building. Leslie Carcamo was agreeable to the plan and there were no learning barriers encountered. HPI: 01/07/2024: Leslie Carcamo is a pleasant 73 y.o. female seen as a new patient referred for right knee pain. Symptoms began a couple months ago with no known injury. Symptoms are located anterior lateral, described as dull and achy and occur intermittently. Symptoms also include intermittent swelling and intermittent instability. Symptoms do not include popping, clicking, cracking, catching/locking. Patient was prescribed prednisone at the end of November and again on December 23, patient states that the prednisone did help with symptoms. She also takes Tylenol arthritis. Symptoms are worse with standing after prolonged sitting, stairs and prolonged walking. She rates her pain as a 1/10 at today's visit and states it was a 10/10 when symptoms were exacerbated. She states she did try a brace but it made her symptoms worse. Additional formal treatment measures include: Primary care provider 12/24/2023, reviewed note. History of diabetes 06/15/2023 hemoglobin A1c 6.4. Not a smoker. History: Past Medical History: Diagnosis Date Anemia Chronic kidney disease (CKD) only one and 1/2 kidney Chronic kidney disease (CKD), active medical management without dialysis, stage 5 (HCC) Diabetes mellitus, type 2 (HCC) Dialysis patient (HCC) Diverticulosis 10/2021 Fibroid Glaucoma Gout H. pylori infection 10/2021 History of stress test 2016 screening and patient reports was normal Hyperlipidemia Hypertension Renal cell carcinoma (HCC) 02/06/2018 Right papillary renal cell carcinoma pT1a, pNX (stage I) s/p right nephrectomy Past Surgical History: Procedure Laterality Date COLONOSCOPY N/A 10/18/2021 Procedure: COLONOSCOPY with polypectomy; Surgeon: Chris Stovall MD; [place] [facility] Service: Gastroenterology CV IR INTERVENTIONAL RADIOLOGY N/A 11/14/2021 Procedure: IR DIALYSIS CATHETER INSERTION TUNNELED; Surgeon: Gerhard Walker MD; Location: IR LAB; Service: Interventional Radiology CV IR INTERVENTIONAL RADIOLOGY N/A 06/19/2022 Procedure: VR Fistulagram w/Intervention; Surgeon: Yan Campbell MD; Location: IR LAB; Service: Interventional Radiology CV IR INTERVENTIONAL RADIOLOGY N/A 11/08/2022 Procedure: VR Dialysis Catheter Removal; Surgeon: Froilan Lang MD; Location: IR LAB; Service: Interventional Radiology CV IR INTERVENTIONAL RADIOLOGY N/A 04/02/2023 Procedure: VR Dialysis Cath Insert Tunnel; Surgeon: Matt Mathias PA-C; Location: IR LAB; Service: Interventional Radiology EGD N/A 10/18/2021 Procedure: ESOPHAGOGASTRODUODENOSCOPY with biopsy and polypectomy; Surgeon: Chris Stovall MD; Location: [facility]; Service: Gastroenterology fatty tumor removed fibroid removed uterine FISTULA ARTERIOVENOUS Left 04/23/2022 Procedure: Attempted LEFT BRACHIOBASILIC FISTULA CREATION; Surgeon: Yan Campbell MD; Location: Main OR; Service: Gen-Vascular FISTULA ARTERIOVENOUS Left 05/16/2022 Procedure: LEFT UPPER EXTREMITY ARTERIOVENOUS Graft with Propaten PTFE GRAFT INSERTION; Surgeon: Yan Campbell MD; Location: Main OR; Service: Gen-Vascular HERNIA REPAIR HYSTERECTOMY NEPHRECTOMY PARTIAL ROBOTIC XI STAGE 2 Right 03/26/2018 Procedure: RIGHT ROBOTIC ASSISTED LAPAROSCOPIC PARTIAL NEPHRECTOMY LEVEL 2; Surgeon: Nasim Gaspar MD; Location: [facility] Main OR; Service: Urology Family History Problem Relation Age of Onset Hypertension Mother Brain cancer Mother No Known Problems Father Hypertension Sister Heart failure Sister SISTER Lung cancer Brother Hypertension Brother Non-Hodgkin's Lymphoma Daughter Stroke Daughter Hypertension Daughter Surgical complications Neg Hx Anesthesia problems Neg Hx Heart disease Neg Hx Clotting disorder Neg Hx Deep vein thrombosis Neg Hx Pulmonary embolism Neg Hx Social History Tobacco Use Smoking status: Never Smokeless tobacco: Never Vaping Use Vaping status: Never Used Substance Use Topics Alcohol use: Not Currently Comment: socially Drug use: No Outpatient Medications as of 01/07/2024 Medication Sig Accu-Chek Guide Glucose Meter Misc USE TEST BLOOD SUGAR 3 TIMES A DAY allopurinoL (ZYLOPRIM) 100 MG tablet Take 1.5 (one and a half) tablets (150 mg total) by mouth daily . amLODIPine (NORVASC) 10 MG tablet (more content not included)... [facility] 01-06-2024 History of Present illness Narrative Spoke to patient at this time, agreeable to completion of wellness visit at next scheduled appointment. MWV outreach completed with patient. Flowsheets completed and filed and appointment type updated. Health Maintenance Due Name Date Due Outreach Comments Rafael 08/24/21 Scheduled with LUMBER SALVAGER outside of [facility], did not have providers name. Diabetic Eye Exam 04/19/23 Diabetic Foot Exam 01/03/24 Do you have an Advanced Directive (Living Will and/or Durable Power of Almond Blancher for Health Care)? If not, would you like more information about Advanced Directives?: No- I do want more information What is your exercise level?: Light (like stretching/slow walking) What is your diet?: Diabetic Can you prepare your own meals?: Yes Do you have trouble with finding transportation?: No Because of any health problems, do you need the help of another person with your personal care needs? (For example, eating, bathing, dressing, or getting around the house.): No During the past four weeks, how would you rate your health in general?: Fair Whether or not you use a hearing aid, do you think you have a hearing problem or do others think you have a hearing problem?: (!) Yes (sometimes) Whether or not you use glasses or contacts, do you have difficulty driving, watching television, reading, or doing any of your daily activities because of your eyesight?: No In the past six months, have you had an unexplained weight loss of 10 pounds or more?: No Do you take your medications as prescribed?: I do not miss doses of my medications During the past four weeks, how much have you been bothered by emotional problems such as feeling anxious, depressed, irritable, sad, or downhearted and blue?: Not at all During the past four weeks, has your physical and emotional health limited your social activites with family, friends, neighbors, or groups? : Slightly Is Patient Ambulatory?: Y Fell in past year: 0 (No) How many falls in the past year?: 0 Did any of these falls result in an injury?: No Unsteady when walks: 0 (No) Worried about fallin (No) Advised to use cane/walker?: 0 (No) Type of assistive device: N/A Holds onto furniture/herzog: 0 (No) Uses hands to stand up from a chair: 1 (Yes) (sometimes) Trouble stepping onto curb: 0 (No) Rushes to toilet: 0 (No) Lost feeling in feet: 0 (No) Medicine makes me light-headed: 0 (No) Medicine for sleep or mood: 0 (No) Over the last 2 weeks, how often have you been bothered by any of the following problems? Little interest or pleasure in doing things: Not at all Feeling down, depressed, or hopeless: Not at all PHQ-2 Total Score: 0 Beatriz Steward documented in this encounter [facility] 12-24-2023 Evaluation + Plan note Associated Problem(s): Acute pain of right knee This is a new problem, we discussed differentials such as tendinitis, Singh's cyst, IT band pathology, PCL tear, lateral ligament pathology. On examination there is no laxity that would suggest any tears. She has no point tenderness in the posterior region. She does have some tenderness along the lateral meniscus. No trauma no loss of function at this time. Will get a x-ray because she is going out of town we discussed getting into see Ortho for injections to help with stability. Exercises given for her to do today. She has a history of kidney disease so would avoid NSAIDs. She does have a history of gout however with no redness, warmth or swelling lower concern for gout at this time. Will also hold off on any lab work and treat conservatively for now. F/u next visit [facility] 12-24-2023 Miscellaneous Notes Associated Problem(s): Acute pain of right knee This is a new problem, we discussed differentials such as tendinitis, Singh's cyst, IT band pathology, PCL tear, lateral ligament pathology. On examination there is no laxity that would suggest any tears. She has no point tenderness in the posterior region. She does have some tenderness along the lateral meniscus. No trauma no loss of function at this time. Will get a x-ray because she is going out of town we discussed getting into see Ortho for injections to help with stability. Exercises given for her to do today. She has a history of kidney disease so would avoid NSAIDs. She does have a history of gout however with no redness, warmth or swelling lower concern for gout at this time. Will also hold off on any lab work and treat conservatively for now. F/u next visit documented in this encounter [facility] 12-24-2023 History of Present illness Narrative Images from the original note were not included. Leslie Carcamo is a 73 y.o. female Assessment/Plan: Problem List Items Addressed This Visit Other Acute pain of right knee - Primary This is a new problem, we discussed differentials such as tendinitis, Singh's cyst, IT band pathology, PCL tear, lateral ligament pathology. On examination there is no laxity that would suggest any tears. She has no point tenderness in the posterior region. She does have some tenderness along the lateral meniscus. No trauma no loss of function at this time. Will get a x-ray because she is going out of town we discussed getting into see Ortho for injections to help with stability. Exercises given for her to do today. She has a history of kidney disease so would avoid NSAIDs. She does have a history of gout however with no redness, warmth or swelling lower concern for gout at this time. Will also hold off on any lab work and treat conservatively for now. F/u next visit Relevant Orders XR Knee Right 2 Views (Standard) Ambulatory referral to Orthopedic Surgery Ambulatory Ref to [facility] (PT/OT/ST) Handicap Placard Return in about 15 days (around 01/08/2024) for Next scheduled follow up. Leslie Carcamo is a 73 y.o. female who presents for Chief Complaint Patient presents with Knee Pain Right Gap Closure (Health Maintenance) Mammogram due on 08/24/2021 Urine Microalbumin due on 01/26/2023 Diabetic Eye Exam due on 04/19/2023 A1C due on 12/14/2023 HPI Knee pain- located on the right. Symptoms started on month ago. She cannot recall any precipitating events. The pain is mostly aching in nature on the outer knee. It is not significant and better or worse. It was so bad 1 day that she could not walk. She rates it a 5 out of 10 in severity. Is worse if she sits too long goes to get up it was better when she takes liquid Tylenol. She also went to the ER and was treated with prednisone which helped little bit. She denies any redness, warmth. He did have some mild swelling that comes and goes. It seems to get also moving down her leg or in the back of her leg. She denies any recent travel. She denies any change in her physical activity. She is never had this before. Patient Active Problem List Diagnosis H/O partial nephrectomy End stage renal disease (HCC) Anemia due to stage 5 chronic kidney disease (HCC) COAG (chronic open-angle glaucoma) Essential hypertension Mixed hyperlipidemia Chronic midline low back pain without sciatica Class 1 obesity due to excess calories with serious comorbidity and body mass index (BMI) of 30.0 to 30.9 in adult Type 2 diabetes 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, with long-term current use of insulin (HCC) Gout History of renal cell carcinoma Chest pain Lipoma of left upper extremity Secondary hyperparathyroidism of renal origin (HCC) S/P arteriovenous (AV) fistula creation (HFpEF) heart failure with preserved ejection fraction (HCC) Numbness and tingling in left hand Hemodialysis AV fistula thrombosis, sequela Arteriovenous fistula, acquired (HCC) Acute pain of right knee Past Surgical History: Procedure Laterality Date COLONOSCOPY N/A 10/18/2021 Procedure: COLONOSCOPY with polypectomy; Surgeon: Chris Stovall MD; [place] [facility] [place] Service: Gastroenterology CV IR INTERVENTIONAL RADIOLOGY N/A 11/14/2021 Procedure: IR DIALYSIS CATHETER INSERTION TUNNELED; Surgeon: Gerhard Walker MD; Location: [facility]; Service: Interventional Radiology CV IR INTERVENTIONAL RADIOLOGY N/A 06/19/2022 Procedure: VR Fistulagram w/Intervention; Surgeon: Yan Campbell MD; Location: IR LAB; Service: Interventional Radiology CV IR INTERVENTIONAL RADIOLOGY N/A 11/08/2022 Procedure: VR Dialysis Catheter Removal; Surgeon: Froilan Lang MD; Location: IR LAB; Service: Interventional Radiology CV IR INTERVENTIONAL RADIOLOGY N/A 04/02/2023 Procedure: VR Dialysis Cath Insert Tunnel; Surgeon: Matt Mathias PA-C; Location: IR LAB; Service: Interventional Radiology EGD N/A 10/18/2021 Procedure: ESOPHAGOGASTRODUODENOSCOPY with biopsy and polypectomy; Surgeon: Chris Stovall MD; Location: [facility]; Service: Gastroenterology fatty tumor removed fibroid removed uterine FISTULA ARTERIOVENOUS Left 04/23/2022 Procedure: Attempted LEFT BRACHIOBASILIC FISTULA CREATION; Surgeon: Yan Campbell MD; Location: [facility] OR; Service: Gen-Vascular FISTULA ARTERIOVENOUS Left 05/16/2022 Procedure: LEFT UPPER EXTREMITY ARTERIOVENOUS Graft with Propaten PTFE GRAFT INSERTION; Surgeon: Yan Campbell MD; Location: [facility] OR; Service: Gen-Vascular HERNIA REPAIR HYSTERECTOMY NEPHRECTOMY PARTIAL ROBOTIC XI STAGE 2 Right 03/26/2018 Procedure: RIGHT ROBOTIC ASSISTED LAPAROSCOPIC PARTIAL NEPHRECTOMY LEVEL 2; Surgeon: Nasim Gaspar MD; Location: [facility] Main OR; Service: Urology Family History Problem Relation Age of Onset Hypertension Mother Brain cancer Mother No Known Problems Father Hypertension Sister Heart failure Sister SISTER Lung cancer Brother Hypertension Brother Non-Hodgkin's Lymphoma Daughter Stroke Daughter Hypertension Daughter Surgical complications Neg Hx Anesthesia problems Neg Hx Heart disease Neg Hx Clotting disorder Neg Hx Deep vein thrombosis Neg Hx Pulmonary embolism Neg Hx Social History Tobacco Use Smoking status: Never Smokeless tobacco: Never Vaping Use Vaping status: Never Used Substance Use Topics Alcohol use: Not Currently Comment: socially Drug use: No Current Outpatient Medications Medication Sig Dispense Refill Accu-Chek Guide Glucose Meter Misc USE TEST BLOOD SUGAR 3 TIMES A DAY allopurinoL (ZYLOPRIM) 100 MG tablet Take 1.5 (one and a half) tablets (150 mg total) by mouth daily . amLODIPine (NORVASC) 10 MG tablet Take 1 (one) tablet (10 mg total) by mouth daily AM . aspirin 81 mg chewable tablet Chew and Swallow 1 (one) tablet (81 mg total) daily AM . atorvastatin (LIPITOR) 40 MG tablet Take 1 (one) tablet (40 mg total) by mouth every morning Reasons: high cholesterol. 90 tablet 0 carvediloL (COREG) 25 MG tablet Take 1 (one) tablet (25 mg total) by mouth 2 (two) times a day with meals . 120 tablet 0 dorzolamide-timoloL (COSOPT) 22.3-6.8 mg/mL ophthalmic solution Administer 1 (one) drop to both eyes 2 (two) times a day . dulaglutide (Trulicity) 1.5 mg/0.5 mL Pen Inject 0.5 mL (1.5 mg total) under the skin once a week . FreeStyle Lite Strips strips TEST 3 TIMES DAILY DIRECTED 200 strip 2 furosemide (LASIX) 40 MG tablet 1 tab and 2 tab alternate days . (Patient taking differently: Take 1 (one) tablet (40 mg total) by mouth daily .) 60 tablet 11 hydrALAZINE (APRESOLINE) 50 MG tablet Take 1 (one) tablet (50 mg total) by mouth 2 (two) times a day . insulin degludec (Tresiba FlexTouch U-200) 200 unit/mL (3 mL) InPn Inject 10 (ten) Units under the skin nightly . (Patient taking differently: Inject 10 (ten) Units under the skin nightly PRN .) 4.5 mL 0 Vitamin D2 1,250 mcg (50,000 unit) capsule TAKE 1 CAPSULE BY MOUTH ONCE PER WEEK (WEEKLY) FOR 10 WEEKS THEN START MONTHLY DOSES Velphoro 500 mg Chew CRUSH OR CHEW AND SWALLOW 1 TABLET 3 TIMES A DAY WITH MEALS No current facility-administered medications for this visit. Review of Systems Constitutional: Negative for activity change, fatigue and unexpected weight change. Respiratory: Negative for shortness of breath. Cardiovascular: Negative for chest pain. Musculoskeletal: Positive for arthralgias. Negative for back pain and gait problem. Skin: Negative for rash and wound. Neurological: Negative for weakness and numbness. Physical Exam: BP 137/65 (BP Location: Right arm, Patient Position: Sitting, BP Cuff Size: Adult) Pulse 62 Temp 98 F (36.7 C) (Temporal) Resp 16 Ht 5' 6 Wt 82.2 kg (181 lb 4.8 oz) SpO2 98% BMI 29.26 kg/m Wt Readings from Last 3 Encounters: 12/24/23 82.2 kg (181 lb 4.8 oz) 07/10/23 84.4 kg (186 lb 1.6 oz) 04/01/23 90.3 kg (199 lb 1.2 oz) BP Readings from Last 3 Encounters: 12/24/23 137/65 07/10/23 (!) 156/79 04/02/23 (!) 157/74 Physical Exam Vitals reviewed. Constitutional: General: She is not in acute distress. Appearance: She is not ill-appearing. HENT: Head: Normocephalic. Eyes: Conjunctiva/sclera: Conjunctivae normal. Cardiovascular: Rate and Rhythm: Normal rate. Pulmonary: Effort: Pulmonary effort is normal. No respiratory distress. Musculoskeletal: Right upper leg: Tenderness (mild along the IT band, no tightness) present. No bony tenderness. Right knee: Swelling and crepitus present. No erythema or bony tenderness. Normal range of motion. Tenderness present over the lateral joint line. No LCL laxity, MCL laxity, ACL laxity or PCL laxity. Normal alignment and normal patellar mobility. Left knee: Normal. Right lower leg: Normal. Skin: Findings: No rash. Neurological: Mental Status: She is alert and oriented to person, place, and time. Psychiatric: Mood and Affect: Mood normal. Behavior: Behavior normal. Thought Content: Thought content normal. Health Maintenance Due Topic Date Due Tetanus: Every 10yrs Never done Dexa Scan Never done Medicare Wellness Visit Never done Pneumococcal Vaccine: Age 65+ (1 of 2 - PCV) Never done Zoster Vaccines (1 of 2) Never done Mammogram 08/24/2021 Urine Microalbumin 01/26/2023 Diabetic Eye Exam 04/19/2023 A1C 12/14/2023 Falls Risk Assessment 01/03/2024 Depression Screening/Follow-Up (PHQ-2/9) 01/03/2024 Goals Blood Pressure < 130/80 HEMOGLOBIN A1C < 7 Blood sugar levels outside the normal range may be an indicator of diabetes. Please note: Portions of this chart may have been created with Apse voice recognition software. Occasional wrong-word or sound-like substitutions may have occurred due to inherent limitations of the voice recognition software. Please read the chart carefully and recognize, using context, where the substitutions have occurred. For any new medications prescribed today, patient was educated about indications for the medication, how to take the medication and potential side effects of the medications. documented in this encounter [facility] 12-24-2023 Note Leslie Carcamo is a 73 y.o. female Assessment/Plan: Problem List Items Addressed This Visit Other Acute pain of right knee - Primary This is a new problem, we discussed differentials such as tendinitis, Singh's cyst, IT band pathology, PCL tear, lateral ligament pathology. On examination there is no laxity that would suggest any tears. She has no point tenderness in the posterior region. She does have some tenderness along the lateral meniscus. No trauma no loss of function at this time. Will get a x-ray because she is going out of town we discussed getting into see Ortho for injections to help with stability. Exercises given for her to do today. She has a history of kidney disease so would avoid NSAIDs. She does have a history of gout however with no redness, warmth or swelling lower concern for gout at this time. Will also hold off on any lab work and treat conservatively for now. F/u next visit Relevant Orders XR Knee Right 2 Views (Standard) Ambulatory referral to Orthopedic Surgery Ambulatory Ref to [facility] (PT/OT/ST) Handicap Placard Return in about 15 days (around 01/08/2024) for Next scheduled follow up. Leslie Carcamo is a 73 y.o. female who presents for Chief Complaint Patient presents with Knee Pain Right Gap Closure (Health Maintenance) Mammogram due on 08/24/2021 Urine Microalbumin due on 01/26/2023 Diabetic Eye Exam due on 04/19/2023 A1C due on 12/14/2023 HPI Knee pain- located on the right. Symptoms started on month ago. She cannot recall any precipitating events. The pain is mostly aching in nature on the outer knee. It is not significant and better or worse. It was so bad 1 day that she could not walk. She rates it a 5 out of 10 in severity. Is worse if she sits too long goes to get up it was better when she takes liquid Tylenol. She also went to the ER and was treated with prednisone which helped little bit. She denies any redness, warmth. He did have some mild swelling that comes and goes. It seems to get also moving down her leg or in the back of her leg. She denies any recent travel. She denies any change in her physical activity. She is never had this before. Patient Active Problem List Diagnosis H/O partial nephrectomy End stage renal disease (HCC) Anemia due to stage 5 chronic kidney disease (HCC) COAG (chronic open-angle glaucoma) Essential hypertension Mixed hyperlipidemia Chronic midline low back pain without sciatica Class 1 obesity due to excess calories with serious comorbidity and body mass index (BMI) of 30.0 to 30.9 in adult Type 2 diabetes 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, with long-term current use of insulin (HCC) Gout History of renal cell carcinoma Chest pain Lipoma of left upper extremity Secondary hyperparathyroidism of renal origin (HCC) S/P arteriovenous (AV) fistula creation (HFpEF) heart failure with preserved ejection fraction (HCC) Numbness and tingling in left hand Hemodialysis AV fistula thrombosis, sequela Arteriovenous fistula, acquired (HCC) Acute pain of right knee Past Surgical History: Procedure Laterality Date COLONOSCOPY N/A 10/18/2021 Procedure: COLONOSCOPY with polypectomy; Surgeon: Chris Stovall MD; [place] [facility] [place] Service: Gastroenterology CV IR INTERVENTIONAL RADIOLOGY N/A 11/14/2021 Procedure: IR DIALYSIS CATHETER INSERTION TUNNELED; Surgeon: Gerhard Walker MD; Location: IR LAB; Service: Interventional Radiology CV IR INTERVENTIONAL RADIOLOGY N/A 06/19/2022 Procedure: VR Fistulagram w/Intervention; Surgeon: Yan Campbell MD; Location: IR LAB; Service: Interventional Radiology CV IR INTERVENTIONAL RADIOLOGY N/A 11/08/2022 Procedure: VR Dialysis Catheter Removal; Surgeon: Froilan Lang MD; Location: IR LAB; Service: Interventional Radiology CV IR INTERVENTIONAL RADIOLOGY N/A 04/02/2023 Procedure: VR Dialysis Cath Insert Tunnel; Surgeon: Matt Mathias PA-C; Location: IR LAB; Service: Interventional Radiology EGD N/A 10/18/2021 Procedure: ESOPHAGOGASTRODUODENOSCOPY with biopsy and polypectomy; Surgeon: Chris Stovall MD; Location[place] [facility]; Service: Gastroenterology fatty tumor removed fibroid removed uterine FISTULA ARTERIOVENOUS Left 04/23/2022 Procedure: Attempted LEFT BRACHIOBASILIC FISTULA CREATION; Surgeon: Yan Campbell MD; Location: Main OR; Service: Gen-Vascular FISTULA ARTERIOVENOUS Left 05/16/2022 Procedure: LEFT UPPER EXTREMITY ARTERIOVENOUS Graft with Propaten PTFE GRAFT INSERTION; Surgeon: Yan Campbell MD; Location: Main OR; Service: Gen-Vascular HERNIA REPAIR HYSTERECTOMY NEPHRECTOMY PARTIAL ROBOTIC XI STAGE 2 Right 03/26/2018 Procedure: RIGHT ROBOTIC ASSISTED LAPAROSCOPIC PARTIAL NEPHRECTOMY LEVEL 2; Surgeon: Nasim Gaspar MD; Location: [facility] Main OR; Service: Urology Family History Problem R (more content not included)... [facility] 12-02-2023 History of Present illness Narrative HPI Leslie Carcamo presents to the [facility] with Chief Complaint Patient presents with Knee Pain Right knee pain, thinks it may be arthritis over the last 6 days just keeps getting worse. Patient presents today with right knee pain for 6 days. Patient denies trauma, or injury to right knee. Patient states light touch causes significant pain. Patient has been utilizing knee brace, but states the knee brace exacerbates the symptoms. Patient has been utilizing Tylenol without relief. Patient reports history of gout. Patient denies fevers, chills, body aches, nausea, vomiting, diarrhea, chest pain, shortness of breath, numbness/tingling in extremities, weakness or abdominal pain. Patient denies warmth or swelling of right knee. Strength, ROM and sensation intact on exam. The following sections were personally reviewed by me: Allergies Meds Problems Med Hx Surg Hx Fam Hx ROS Review of Systems 8 systems reviewed with patient, negative unless specifically mentioned in history of present illness PHYSICAL EXAM Visit Vitals BP 185/78 (BP Location: Left arm, BP Position: Sitting) Pulse 66 Temp 98.7 F (37.1 C) (Temporal) Resp 16 Ht 1.676 m (5' 6) Wt 83.8 kg (184 lb 12.8 oz) SpO2 98% BMI 29.83 kg/m Physical Exam Vitals and nursing note reviewed. Constitutional: Appearance: Normal appearance. HENT: Head: Normocephalic. Right Ear: External ear normal. Left Ear: External ear normal. Nose: Nose normal. Mouth/Throat: Mouth: Mucous membranes are moist. Eyes: Pupils: Pupils are equal, round, and reactive to light. Cardiovascular: Rate and Rhythm: Normal rate and regular rhythm. Pulses: Normal pulses. Heart sounds: Normal heart sounds. Pulmonary: Effort: Pulmonary effort is normal. Breath sounds: Normal breath sounds. Musculoskeletal: General: Normal range of motion. Right knee: No swelling or erythema. Normal range of motion. Tenderness (diffuse) present. Normal pulse. Comments: No warmth or swelling noted ROM, strength and sensation intact Skin: General: Skin is warm and dry. Neurological: General: No focal deficit present. Mental Status: She is alert and oriented to person, place, and time. Psychiatric: Mood and Affect: Mood normal. Behavior: Behavior normal. Judgment: Judgment normal. RESULTS No results found for this or any previous visit (from the past 1 hour(s)). ASSESSMENT/PLAN 1. Acute gout of lright knee, unspecified cause Orders Placed This Encounter predniSONE 20 MG tablet Clinically consistent with acute gout. Discussed treatment options with patient. Patient would like to move forward with prednisone use for symptom management, patient has tolerated in the past. Thoroughly discussed the risk, and possible side effects of taking prednisone. Discussed closely monitoring blood sugar at home, patient agreeable. Discussed supportive treatments and at home care. Encouraged patient to closely follow up with PCP. Encouraged patient to increase fluids and rest. Discussed red flag signs and symptoms that should prompt return to the clinic or ER. Patient agreeable to plan. If symptoms worsen patient was advised to follow up in our office, primary care provider or the Emergency Dept. Benefits, Risks, Contraindications, and Complications of recommended treatments were explained. The patient understands and agrees to proceed with the plan. documented in this encounter [employer] [facility] 03-01-2024 Evaluation + Plan note Associated Problem(s): Abdominal pain Acute problem, intermittent and no pain today. I am unclear what the cause is. We discussed writing symptoms down and is it associated with foods, loose stools etc. No red flags symptoms however she is not a reliable historian [facility] 07-12-2023 Miscellaneous Notes Associated Problem(s): Abdominal pain Acute problem, intermittent and no pain today. I am unclear what the cause is. We discussed writing symptoms down and is it associated with foods, loose stools etc. No red flags symptoms however she is not a reliable historian Associated Problem(s): Anemia due to stage 5 chronic kidney disease (HCC) This is stable now that she is on iron. Was 7.7 previously, unclear why it had dropped so low. MCV was elevated which would suggest B12/folate deficiency. Associated Problem(s): Type 2 diabetes 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, with long-term current use of insulin (HCC) Chronic, stable Last HA1c 6.4. only using Insulin as needed. Associated Problem(s): End stage renal disease (HCC) Chronic, history of nephrectomy in the setting a RCC. Dialysis twice a week right now but she likely needs an additional day. She is hesitant on this. Associated Problem(s): Secondary hyperparathyroidism of renal origin (HCC) Chronic secondary to renal failure. She is on HD Calcium is wnl, low vitamin D Last PTH elevated (240) Associated Problem(s): Arteriovenous fistula, acquired (HCC) Chronic, unavailable for use. Follows with vascular. Associated Problem(s): (HFpEF) heart failure with preserved ejection fraction (HCC) Chronic, no signs of fluid overload. Last echo 11/15/2021 showed LVH, grade 2 diastolic dysfunction. LVEF 68% and + pulmonary Hypertension 59 mmHg. GDMT- BB, diuretic She is also on dialysis and medications are adjusted at her appointments at times. I am unclear what all she is on so I'd like her to work with her hand tube winder on the blood pressure so there isn't any confusion. BP goal < 140/90. documented in this encounter [facility] 07-12-2023 Evaluation + Plan note Associated Problem(s): Anemia due to stage 5 chronic kidney disease (HCC) This is stable now that she is on iron. Was 7.7 previously, unclear why it had dropped so low. MCV was elevated which would suggest B12/folate deficiency. [facility] 07-12-2023 Evaluation + Plan note Associated Problem(s): Type 2 diabetes 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, with long-term current use of insulin ([facility]) Chronic, stable Last HA1c 6.4. only using Insulin as needed. [facility] 07-12-2023 Evaluation + Plan note Associated Problem(s): End stage renal disease (HCC) Chronic, history of nephrectomy in the setting a RCC. Dialysis twice a week right now but she likely needs an additional day. She is hesitant on this. [facility] 07-12-2023 Evaluation + Plan note Associated Problem(s): Secondary hyperparathyroidism of renal origin (HCC) Chronic secondary to renal failure. She is on HD Calcium is wnl, low vitamin D Last PTH elevated (240) [facility] 07-12-2023 Evaluation + Plan note Associated Problem(s): Arteriovenous fistula, acquired (HCC) Chronic, unavailable for use. Follows with vascular. [facility] 07-12-2023 Evaluation + Plan note Associated Problem(s): (HFpEF) heart failure with preserved ejection fraction (HCC) Chronic, no signs of fluid overload. Last echo 11/15/2021 showed LVH, grade 2 diastolic dysfunction. LVEF 68% and + pulmonary Hypertension 59 mmHg. GDMT- BB, diuretic She is also on dialysis and medications are adjusted at her appointments at times. I am unclear what all she is on so I'd like her to work with her hand tube winder on the blood pressure so there isn't any confusion. BP goal < 140/90. [facility] 07-10-2023 History of Present illness Narrative Images from the original note were not included. Leslie Carcamo is a 72 y.o. female Assessment/Plan: Problem List Items Addressed This Visit Endocrine Type 2 diabetes 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, with long-term current use of insulin (HCC) - Primary Chronic, stable Last HA1c 6.4. only using Insulin as needed. Secondary hyperparathyroidism of renal origin (HCC) Chronic secondary to renal failure. She is on HD Calcium is wnl, low vitamin D Last PTH elevated (240) Cardiovascular and Mediastinum (HFpEF) heart failure with preserved ejection fraction (HCC) Chronic, no signs of fluid overload. Last echo 11/15/2021 showed LVH, grade 2 diastolic dysfunction. LVEF 68% and + pulmonary Hypertension 59 mmHg. GDMT- BB, diuretic She is also on dialysis and medications are adjusted at her appointments at times. I am unclear what all she is on so I'd like her to work with her hand tube winder on the blood pressure so there isn't any confusion. BP goal < 140/90. Arteriovenous fistula, acquired (HCC) Chronic, unavailable for use. Follows with vascular. Genitourinary End stage renal disease (HCC) Chronic, history of nephrectomy in the setting a RCC. Dialysis twice a week right now but she likely needs an additional day. She is hesitant on this. Other Anemia due to stage 5 chronic kidney disease (HCC) This is stable now that she is on iron. Was 7.7 previously, unclear why it had dropped so low. MCV was elevated which would suggest B12/folate deficiency. Abdominal pain Acute problem, intermittent and no pain today. I am unclear what the cause is. We discussed writing symptoms down and is it associated with foods, loose stools etc. No red flags symptoms however she is not a reliable historian My ongoing relationship with Leslie Carcamo requires continued responsibility and cognitive effort of being the focal point for all services related to chronic condition(s). Return in about 6 months (around 01/08/2024) for Annual physical. Leslie Carcamo is a 72 y.o. female who presents for Chief Complaint Patient presents with Hypertension Gap Closure (Health Maintenance) Mammogram due on 08/24/2021 Urine Microalbumin due on 01/26/2023 Diabetic Eye Exam due on 04/19/2023 HPI 72-year-old female with a history of end-stage renal disease on dialysis, anemia secondary to CKD, hypertension, hyperlipidemia, diabetes, heart failure. She presents today for chronic care follow-up. She does have a concern about her blood pressure and having abdominal pain. Abdominal pain- intermittent x 1 years. Sharp pain. Last a few minutes. No gas, nausea, vomiting, diarrhea or constipation. Hasn't tried anything for the pain. Middle of stomach. Hypertension-states she is taking her medications as prescribed however her blood pressure does not seem to stay under control. She denies any chest pain or shortness of breath with this or headaches. She is does not always feel well. She states that when she goes to dialysis her blood pressure is normal however after dialysis the blood pressure is superhigh. She does see her provider after dialysis but states that nothing has been changed. They were unable to use her fistula so she does have a port right now for dialysis. Patient Active Problem List Diagnosis H/O partial nephrectomy End stage renal disease (HCC) Anemia due to stage 5 chronic kidney disease (HCC) COAG (chronic open-angle glaucoma) Essential hypertension Mixed hyperlipidemia Chronic midline low back pain without sciatica Class 1 obesity due to excess calories with serious comorbidity and body mass index (BMI) of 30.0 to 30.9 in adult Type 2 diabetes 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, with long-term current use of insulin (HCC) Gout History of renal cell carcinoma Chest pain Lipoma of left upper extremity Secondary hyperparathyroidism of renal origin (HCC) S/P arteriovenous (AV) fistula creation (HFpEF) heart failure with preserved ejection fraction (HCC) Numbness and tingling in left hand Hemodialysis AV fistula thrombosis, sequela Arteriovenous fistula, acquired (HCC) Abdominal pain Past Surgical History: Procedure Laterality Date COLONOSCOPY N/A 10/18/2021 Procedure: COLONOSCOPY with polypectomy; Surgeon: Chris Stovall MD; [place] [facility] [place] Service: Gastroenterology CV IR INTERVENTIONAL RADIOLOGY N/A 11/14/2021 Procedure: IR DIALYSIS CATHETER INSERTION TUNNELED; Surgeon: Gerhard Walker MD; Location: IR LAB; Service: Interventional Radiology CV IR INTERVENTIONAL RADIOLOGY N/A 06/19/2022 Procedure: VR Fistulagram w/Intervention; Surgeon: Yan Campbell MD; Location: IR LAB; Service: Interventional Radiology CV IR INTERVENTIONAL RADIOLOGY N/A 11/08/2022 Procedure: VR Dialysis Catheter Removal; Surgeon: Froilan Lang MD; Location: IR LAB; Service: Interventional Radiology CV IR INTERVENTIONAL RADIOLOGY N/A 04/02/2023 Procedure: VR Dialysis Cath Insert Tunnel; Surgeon: Matt Mathias PA-C; Location: IR LAB; Service: Interventional Radiology EGD N/A 10/18/2021 Procedure: ESOPHAGOGASTRODUODENOSCOPY with biopsy and polypectomy; Surgeon: Chris Stovall MD; Location: [facility]; Service: Gastroenterology fatty tumor removed fibroid removed uterine FISTULA ARTERIOVENOUS Left 04/23/2022 Procedure: Attempted LEFT BRACHIOBASILIC FISTULA CREATION; Surgeon: Yan Campbell MD; Location: Main OR; Service: Gen-Vascular FISTULA ARTERIOVENOUS Left 05/16/2022 Procedure: LEFT UPPER EXTREMITY ARTERIOVENOUS Graft with Propaten PTFE GRAFT INSERTION; Surgeon: Yan Campbell MD; Location: Main OR; Service: Gen-Vascular HERNIA REPAIR HYSTERECTOMY NEPHRECTOMY PARTIAL ROBOTIC XI STAGE 2 Right 03/26/2018 Procedure: RIGHT ROBOTIC ASSISTED LAPAROSCOPIC PARTIAL NEPHRECTOMY LEVEL 2; Surgeon: Nasim Gaspar MD; Location: [facility] Main OR; Service: Urology Family History Problem Relation Age of Onset Hypertension Mother Brain cancer Mother No Known Problems Father Hypertension Sister Heart failure Sister SISTER Lung cancer Brother Hypertension Brother Non-Hodgkin's Lymphoma Daughter Stroke Daughter Hypertension Daughter Surgical complications Neg Hx Anesthesia problems Neg Hx Heart disease Neg Hx Clotting disorder Neg Hx Deep vein thrombosis Neg Hx Pulmonary embolism Neg Hx Social History Tobacco Use Smoking status: Never Smokeless tobacco: Never Vaping Use Vaping Use: Never used Substance Use Topics Alcohol use: Not Currently Comment: socially Drug use: No Current Outpatient Medications Medication Sig Dispense Refill Accu-Chek Guide Glucose Meter Misc USE TEST BLOOD SUGAR 3 TIMES A DAY allopurinoL (ZYLOPRIM) 100 MG tablet Take 1.5 (one and a half) tablets (150 mg total) by mouth daily . amLODIPine (NORVASC) 10 MG tablet Take 1 (one) tablet (10 mg total) by mouth daily AM . aspirin 81 mg chewable tablet Chew and Swallow 1 (one) tablet (81 mg total) daily AM . atorvastatin (LIPITOR) 40 MG tablet Take 1 (one) tablet (40 mg total) by mouth every morning Reasons: high cholesterol. 90 tablet 0 carvediloL (COREG) 25 MG tablet Take 1 (one) tablet (25 mg total) by mouth 2 (two) times a day with meals . 120 tablet 0 dorzolamide-timoloL (COSOPT) 22.3-6.8 mg/mL ophthalmic solution Administer 1 (one) drop to both eyes 2 (two) times a day . dulaglutide (Trulicity) 1.5 mg/0.5 mL Pen Inject 0.5 mL (1.5 mg total) under the skin once a week . FreeStyle Lite Strips strips TEST 3 TIMES DAILY DIRECTED 200 strip 2 furosemide (LASIX) 40 MG tablet 1 tab and 2 tab alternate days . (Patient taking differently: Take 1 (one) tablet (40 mg total) by mouth daily .) 60 tablet 11 hydrALAZINE (APRESOLINE) 50 MG tablet Take 1 (one) tablet (50 mg total) by mouth 3 (three) times a day . insulin degludec (Tresiba FlexTouch U-200) 200 unit/mL (3 mL) InPn Inject 10 (ten) Units under the skin nightly . (Patient taking differently: Inject 10 (ten) Units under the skin nightly PRN .) 4.5 mL 0 Vitamin D2 1,250 mcg (50,000 unit) capsule TAKE 1 CAPSULE BY MOUTH ONCE PER WEEK (WEEKLY) FOR 10 WEEKS THEN START MONTHLY DOSES Velphoro 500 mg Chew CRUSH OR CHEW AND SWALLOW 1 TABLET 3 TIMES A DAY WITH MEALS No current facility-administered medications for this visit. Review of Systems Constitutional: Negative for activity change, diaphoresis and fatigue. Respiratory: Negative for shortness of breath. Cardiovascular: Negative for chest pain and leg swelling. Gastrointestinal: Negative for blood in stool, constipation, diarrhea and nausea. Skin: Negative for rash and wound. Neurological: Negative for dizziness and headaches. Physical Exam: BP (!) 156/79 (BP Location: Right arm, Patient Position: Sitting, BP Cuff Size: X-large Adult) Pulse 68 Temp 98.1 F (36.7 C) (Temporal) Resp 16 Ht 5' 6 Wt 84.4 kg (186 lb 1.6 oz) BMI 30.04 kg/m Wt Readings from Last 3 Encounters: 07/10/23 84.4 kg (186 lb 1.6 oz) 04/01/23 90.3 kg (199 lb 1.2 oz) 01/02/23 83.1 kg (183 lb 3.2 oz) BP Readings from Last 3 Encounters: 07/10/23 (!) 156/79 04/02/23 (!) 157/74 01/02/23 (!) 156/74 Physical Exam Vitals reviewed. Constitutional: General: She is not in acute distress. Appearance: She is obese. She is not ill-appearing. HENT: Head: Normocephalic. Eyes: Conjunctiva/sclera: Conjunctivae normal. Cardiovascular: Rate and Rhythm: Normal rate and regular rhythm. Pulmonary: Effort: Pulmonary effort is normal. No respiratory distress. Breath sounds: Normal breath sounds. No wheezing. Abdominal: General: Bowel sounds are normal. There is no distension. Palpations: Abdomen is soft. Tenderness: There is no abdominal tenderness. There is no guarding or rebound. Musculoskeletal: Right lower leg: No edema. Left lower leg: No edema. Skin: Findings: No rash. Neurological: Mental Status: She is alert. Mental status is at baseline. Psychiatric: Mood and Affect: Mood normal. Behavior: Behavior normal. Health Maintenance Due Topic Date Due Tetanus: Every 10yrs Never done Dexa Scan Never done Pneumococcal Vaccine: Age 65+ (1 of 2 - PCV) Never done Zoster Vaccines (1 of 2) Never done Mammogram 08/24/2021 Urine Microalbumin 01/26/2023 Diabetic Eye Exam 04/19/2023 Goals Blood Pressure < 130/80 HEMOGLOBIN A1C < 7 Blood sugar levels outside the normal range may be an indicator of diabetes. Please note: Portions of this chart may have been created with [employer] voice recognition software. Occasional wrong-word or sound-like substitutions may have occurred due to inherent limitations of the voice recognition software. Please read the chart carefully and recognize, using context, where the substitutions have occurred. For any new medications prescribed today, patient was educated about indications for the medication, how to take the medication and potential side effects of the medications. documented in this encounter [facility] 06-18-2023 History of Present illness Narrative Nurse Note: Review of Systems Constitutional: Negative for fatigue and unexpected weight change. Eyes: Negative for visual disturbance. Respiratory: Negative for shortness of breath. Gastrointestinal: Negative for constipation, diarrhea, nausea and vomiting. Endocrine: Negative for polydipsia and polyuria. Neurological: Positive for numbness (hands). Psychiatric/Behavioral: Positive for sleep disturbance (occassionaly). Nursing Assessment: Physical Exam History of Present Illness Type 2 diabetes with renal failure: This is a follow-up visit to the office. She was diagnosed with diabetes in 2011. Family history of diabetes includes her daughter. Not taking metformin due to CKD. Currently taking Trulicity 1.5 mg weekly and Tresiba 12 units daily. She is on hemodialysis twice a week. She has been holding Tresiba if blood sugar <150 mg/dL at bedtime, always basing Tresiba off bedtime sugars. Denies any hypoglycemic symptoms. If she does take dose of Tresiba, there is usually a small degree of overnight hypoglycemia, she states he is currently taking Tresiba about 4 days per week. She is able to verbalize appropriate treatment of hypoglycemia and also does have nasal glucagon available at home. Does not see a valve pipe irrigator and denies any symptoms of peripheral neuropathy. Hemoglobin A1c = 6.1%. Hypertension: Blood pressure at target today. Follows closely with nephrology for blood pressure control. Hyperlipidemia: Currently on atorvastatin 40 mg daily. Objective Review of Systems Nurse Note: Review of Systems Constitutional: Negative for fatigue and unexpected weight change. Eyes: Negative for visual disturbance. Respiratory: Negative for shortness of breath. Gastrointestinal: Negative for constipation, diarrhea, nausea and vomiting. Endocrine: Negative for polydipsia and polyuria. Neurological: Positive for numbness (hands). Psychiatric/Behavioral: Positive for sleep disturbance (occassionaly). Nursing Assessment: Physical Exam Vitals: Blood pressure 142/62, pulse 61, height 1.676 m (5' 5.98), weight 83.2 kg (183 lb 6.4 oz), SpO2 98 %. Physical Exam Constitutional: Appearance: Normal appearance. HENT: Head: Normocephalic. Neck: Vascular: No carotid bruit. Cardiovascular: Rate and Rhythm: Normal rate and regular rhythm. Pulmonary: Effort: Pulmonary effort is normal. Breath sounds: Normal breath sounds. Musculoskeletal: Cervical back: Neck supple. Lymphadenopathy: Cervical: No cervical adenopathy. Skin: General: Skin is warm and dry. Neurological: General: No focal deficit present. Mental Status: She is alert and oriented to person, place, and time. Psychiatric: Mood and Affect: Mood normal. Behavior: Behavior normal. Thought Content: Thought content normal. Judgment: Judgment normal. Foot exam: +1/barely palpable dorsalis pedis pulses bilaterally. Good foot care. Intact monofilament sensation bilaterally. Neurological Exam Mental Status Alert. Oriented to person, place, and time. Assessment and Plan Type 2 diabetes: A1c is meeting aggressive targets, without. Would reduce basal insulin to 6 units nightly based on overnight hypoglycemia, doing well with GLP 1, due to patient assistance program, we will need to change to Ozempic. We will also need to change to Lantus due to Tresiba formulary change. Hypertension: Blood pressure at goal today. Managed by PCP/nephrology. Hyperlipidemia: Lipid panel stable. Continue atorvastatin. documented in this encounter [facility] 06-18-2023 Procedure note Associated Ord er(s): CT CONTINUOUS GLUCOSE MONITORING ANALYSIS I&R CGM download shows 89% of blood sugars at target, 6% high, 5% low, GMI = 6.1%. Based on CGM download, we will decrease dose of basal insulin. [facility] 06-18-2023 Procedure note Associated Ord er(s): CT CONTINUOUS GLUCOSE MONITORING ANALYSIS I&R CGM download shows 89% of blood sugars at target, 6% high, 5% low, GMI = 6.1%. Based on CGM download, we will decrease dose of basal insulin. documented in this encounter [facility] 05-16-2023 Telephone encounter Note ----- Message from Chary Augustine sent at 05/16/2023 1:08 PM EST ----- Regarding: rx refill Contact: self MEDICATION REFILL REQUEST: PCP: Danny Rose MD Patient called 05/16/23 and is requesting a medication refill for DispRefillsStartEnd atorvastatin (LIPITOR) 40 MG [id number]/ Sig - Route: Take 1 (one) tablet (40 mg total) by mouth every morning Reasons: high cholesterol. - Oral Patient taking differently: Take 1 (one) tablet (40 mg total) by mouth Twice a week AM Reasons: high cholesterol. Sent to pharmacy as: atorvastatin 40 mg tablet (LIPITOR) E-Prescribing Status: Receipt confirmed by pharmacy (10/26/2021 2:15 PM EDT) This was confirmed from the current medication list found in the patients chart. Supply Requested: # of days: 90 days Method of receiving: Send to pharmacy Last set of flowsheet rows for OARRS report: OARRS/NARxCHECK Report Received and Assessed: No data found Date controlled substance agreement signed: No data found Date of last drug screen: No data found Functional Assessment: No data found Will this refill be sent to the preferred pharmacy listed below? Yes Preferred pharmacies: [facility]/pharmacy #[id number] AT [place] [id number] Pt Call Back Number Work Phone Not on file. Patient call back message sent to the primary care clinical pool. Chary Augustine [facility] 05-16-2023 Miscellaneous Notes ----- Message from Chary Augustine sent at 05/16/2023 1:08 PM EST ----- Regarding: rx refill Contact: self MEDICATION REFILL REQUEST: PCP: Danny Rose MD Patient called 05/16/23 and is requesting a medication refill for DispRefillsStartEnd atorvastatin (LIPITOR) 40 MG [id number] / Sig - Route: Take 1 (one) tablet (40 mg total) by mouth every morning Reasons: high cholesterol. - Oral Patient taking differently: Take 1 (one) tablet (40 mg total) by mouth Twice a week AM Reasons: high cholesterol. Sent to pharmacy as: atorvastatin 40 mg tablet (LIPITOR) E-Prescribing Status: Receipt confirmed by pharmacy (10/26/2021 2:15 PM EDT) This was confirmed from the current medication list found in the patients chart. Supply Requested: # of days: 90 days Method of receiving: Send to pharmacy Last set of flowsheet rows for OARRS report: OARRS/NARxCHECK Report Received and Assessed: No data found Date controlled substance agreement signed: No data found Date of last drug screen: No data found Functional Assessment: No data found Will this refill be sent to the preferred pharmacy listed below? Yes Preferred pharmacies: [facility]/pharmacy #[id number] AT [place] [id number] Pt Call Back Number Work Phone Not on file. Patient call back message sent to the primary care clinical pool. Chary Augustine documented in this encounter [facility] 04-11-2023 Emergency department Note Pt verbalizes understanding of discharge instructions/follow up care/ Pt A&Ox4, Pt denies any further questions or needs. Pt ambulated out of room. [facility] 04-11-2023 Emergency department Note Pt verbalizes understanding of discharge instructions/follow up care/ Pt A&Ox4, Pt denies any further questions or needs. Pt ambulated out of room. Emergency Department Report [facility] Service Date:.04/11/23 PCP: Danny Rose Chief Complaint: Chief Complaint Patient presents with Post-Op Problem Pt had a vein surgery on her left thigh on and is concerned that the site is still weeping. ANDI Carcamo is a 72 y.o. female presents to the ED today due to bleeding from a incision on her left medial thigh. This 72-year-old female who is a dialysis patient and had a vein harvested from her left medial thigh 2 weeks ago presents for evaluation of ongoing bleeding from the area. She was seen yesterday for a postop visit and Steri-Strips were placed over the distal portions of the incisions. She states she is having ongoing bleeding and is concerned. She has not had a fever. She denies any severe pain. The vein was harvested for a fistula in her left upper extremity. She has hematomas that are soft and nonfluctuant with incisions that are healing and small amount of drainage from the distal end of both incisions. She is on aspirin and gets heparin with her dialysis. She denies any chest pain or shortness of breath. She denies any dizziness or syncope. Review of Systems: Review of Systems All other systems reviewed and are negative. Past Medical History: Past Medical History: Diagnosis Date CKD (chronic kidney disease) stage 4, GFR 15-29 ml/min COPD (chronic obstructive pulmonary disease) Diabetes mellitus, type 2 Gout H. pylori infection Hyperlipidemia Hypertension Obesity Renal cell carcinoma of right kidney 2017 Right renal mass 02/06/2018 Past Surgical History: Past Surgical History: Procedure Laterality Date NEPHRECTOMY Right 03/26/2018 partial HERNIA REPAIR HYSTERECTOMY TUMOR REMOVAL Allergies: No Known Allergies Medications: Discharge Medication List as of 04/11/2023 12:58 AM CONTINUE these medications which have NOT CHANGED Details amLODIPine 10 MG tablet Take 1 tablet by mouth Daily (with dinner). Historical Med aspirin EC [address] Take 1 tablet by mouth daily. Historical Med atorvastatin 40 MG tablet Take 1 tablet by mouth twice a week. Historical Med carveDILOL 25 MG tablet Take 1 tablet by mouth. Historical Med Dulaglutide (Trulicity) 1.5 MG/0.5ML Solution Pen-injector injection Inject 0.5 mL under the skin once a week. Normal Disp-8 mL, R-1 Entresto 49-51 MG tablet Take 1 tablet by mouth 2 times daily. Historical Med MARGIE furOSEmide 40 MG tablet Take 1 tablet by mouth daily. Historical Med Insulin Degludec (Tresiba FlexTouch) 100 UNIT/ML Solution Pen-injector injection Inject 12 Units under the skin at bedtime. Normal Disp-3 mL, R-3 latanoprost 0.005 % Solution ophthalmic solution Historical Med multivitamin tablet Take 1 tablet by mouth daily. Historical Med MARGIE !! glucose blood test strips (Accu-Chek Guide) Strip strip Use to check blood sugar 3 times a day Normal Disp-200 strip, R-3 !! glucose blood test strips (FREESTYLE LITE) Strip strip 1 strip by Instructed route 2 times daily. Normal Disp-100 strip, R-3 !! glucose blood test strips (FREESTYLE LITE) Strip strip Use to check blood sugars twice daily Normal Disp-100 strip, R-3 !! GLUCOSE MONITOR LANCETS PRESCRIPTION Use to test blood sugar twice daily Normal Disp-100 Each, R-11 !! GLUCOSE MONITOR PRESCRIPTION Use test blood sugar 3 times a day Normal Disp-1 Each, R-0 hydrALAZINE 50 MG tablet Take 1 tablet by mouth 3 times daily. Historical Med !! - Potential duplicate medications found. Please discuss with provider. Family History: Family History Problem Relation Age of Onset Diabetes Daughter Social History: Social History Socioeconomic History Marital status: Spouse name: Not on file Number of children: Not on file Years of education: Not on file Highest education level: Not on file Occupational History Not on file Tobacco Use Smoking status: Never Smokeless tobacco: Never Vaping Use Vaping Use: Never used Substance and Sexual Activity Alcohol use: Not Currently Drug use: Never Sexual activity: Not on file Other Topics Concern Not on file Social History Narrative Not on file Social Determinants of Health Financial Resource Strain: Not on file Food Insecurity: Not on file Transportation Needs: Not on file Physical Activity: Not on file Stress: Not on file Social Connections: Not on file Intimate Partner Violence: Not on file Housing Stability: Not on file Physical Exam: Physical Exam Vitals (developed signs reviewed, patient is afebrile with a normal pulse, blood pressure is mildly elevated at 163/74, she is not hypoxic pulse ox 98% on room air) reviewed. Constitutional: Comments: Moderately overweight -[place] female resting currently on the stretcher, no respiratory distress HENT: Head: Normocephalic and atraumatic. Nose: Nose normal. Mouth/Throat: Mouth: Mucous membranes are moist. Eyes: Conjunctiva/sclera: Conjunctivae normal. Pupils: Pupils are equal, round, and reactive to light. Cardiovascular: Rate and Rhythm: Normal rate and regular rhythm. Pulses: Normal pulses. Pulmonary: Effort: Pulmonary effort is normal. Breath sounds: Normal breath sounds. Abdominal: General: Abdomen is flat. Musculoskeletal: General: Normal range of motion. Cervical back: Normal range of motion. Comments: There are 2 incisions on the medial aspect of the left medial thigh. The most proximal incision is approximately 3 cm long and appears to be well-healing. There is a small area at the distal and with a very minimal amount of venous bleeding. There is no local fluctuance. There is no purulent drainage. The area around this is firm consistent with a hematoma/seroma The distal incision is approximately 8 cm long and appears to be well-healing. There is an open area at the distal end of this incision with a small amount of venous oozing. The patient was asked to stand up which increase the oozing somewhat. There is a local ecchymosis but no induration. There is no warmth or purulent drainage. There is no calf swelling or tenderness. Skin: General: Skin is warm. Capillary Refill: Capillary refill takes less than 2 seconds. Neurological: General: No focal deficit present. Mental Status: She is alert. Psychiatric: Mood and Affect: Mood normal. Vital Signs During ED Visit Patient Vitals for the past 24 hrs: BP Temp Temp src Pulse Resp SpO2 Height 04/11/23 0115 163/74 -- -- 65 18 -- -- 04/10/23 2323 -- -- -- -- -- -- 1.676 m (5' 6) 04/10/23 2319 141/65 98.9 F (37.2 C) Oral 60 14 98 % -- Orders/Results: No orders of the defined types were placed in this encounter. Results for orders placed or performed in visit on 08/08/20 HEMOGLOBIN A1C, MANUAL ENTER Result Value Ref Range HEMOGLOBIN A1C, MANUAL ENTER 7.8 (A) 4.7 - 5.6 % Radiographic Imaging No orders to display Procedures: Procedures Moderate Sedation Procedure: No ED Summary/MDM This 72-year-old female who recently had a vein harvested from the medial aspect of her left leg for a dialysis fistula presents for evaluation of drainage from the site. She was seen in follow-up yesterday at the vascular surgeon's office and Steri-Strips were placed over the areas that is draining. She was told at that time that the incisions appeared to be healing well and there was no sign of infection. She was not satisfied with that explanation and return to emergency department for evaluation. My findings are similar. She appears to have resolving hematomas with a small amount of drainage from the distal end of both incisions where the veins were harvested. There is mild local induration at the more proximal incision and mild ecchymosis related to the more distal incision without any purulent drainage or signs of infection. I placed Steri-Strips over both areas where they were draining and the patient was given the Steri-Strips to use if the anti-place fall off. I explained to her that this is likely related to hematomas that are resultant from her vein harvesting and the bleeding will ultimately stop. She is on aspirin and gets heparin infusion with her dialysis. Encouraged to return to emergency department if she has fever, drainage from the incisions becomes purulent or foul-smelling or any concerns. Clinical Impression: 1. Hematoma No follow-ups on file. Discharge Medication List as of 04/11/2023 12:58 AM Discharge Medication List as of 04/11/2023 12:58 AM An After Visit Summary was printed and given to the patient with above information. . . Nguyen Emerson DO 04/11/23 0351 Pt is resting with grandaughter at bedside, Call light within reach, denies any further needs or questions at this time documented in this encounter [facility] 04-11-2023 Hospital Discharge instructions Nguyen Emerson DO - 04/11/2023 12:58 AM EST Use steri-strips as described, keep the draining areas covered. You can apply ice or heat - but heat will increase the drainage from the incision sites. Return to the ED for fever, increased pain or if the drainage from the incisions becomes thick or purulent (like pus) documented in this encounter [facility] 04-11-2023 Physician Emergency department Note Emergency Department Report [facility] Service Date:.04/11/23 PCP: Danny Rose Chief Complaint: Chief Complaint Patient presents with Post-Op Problem Pt had a vein surgery on her left thigh on and is concerned that the site is still weeping. ANDI Carcamo is a 72 y.o. female presents to the ED today due to bleeding from a incision on her left medial thigh. This 72-year-old female who is a dialysis patient and had a vein harvested from her left medial thigh 2 weeks ago presents for evaluation of ongoing bleeding from the area. She was seen yesterday for a postop visit and Steri-Strips were placed over the distal portions of the incisions. She states she is having ongoing bleeding and is concerned. She has not had a fever. She denies any severe pain. The vein was harvested for a fistula in her left upper extremity. She has hematomas that are soft and nonfluctuant with incisions that are healing and small amount of drainage from the distal end of both incisions. She is on aspirin and gets heparin with her dialysis. She denies any chest pain or shortness of breath. She denies any dizziness or syncope. Review of Systems: Review of Systems All other systems reviewed and are negative. Past Medical History: Past Medical History: Diagnosis Date CKD (chronic kidney disease) stage 4, GFR 15-29 ml/min COPD (chronic obstructive pulmonary disease) Diabetes mellitus, type 2 Gout H. pylori infection Hyperlipidemia Hypertension Obesity Renal cell carcinoma of right kidney 2018 Right renal mass 02/06/2018 Past Surgical History: Past Surgical History: Procedure Laterality Date NEPHRECTOMY Right 03/26/2018 partial HERNIA REPAIR HYSTERECTOMY TUMOR REMOVAL Allergies: No Known Allergies Medications: Discharge Medication List as of 04/11/2023 12:58 AM CONTINUE these medications which have NOT CHANGED Details amLODIPine 10 MG tablet Take 1 tablet by mouth Daily (with dinner). Historical Med aspirin EC [address] Take 1 tablet by mouth daily. Historical Med atorvastatin 40 MG tablet Take 1 tablet by mouth twice a week. Historical Med carveDILOL 25 MG tablet Take 1 tablet by mouth. Historical Med Dulaglutide (Trulicity) 1.5 MG/0.5ML Solution Pen-injector injection Inject 0.5 mL under the skin once a week. Normal Disp-8 mL, R-1 Entresto 49-51 MG tablet Take 1 tablet by mouth 2 times daily. Historical Med MARGIE furOSEmide 40 MG tablet Take 1 tablet by mouth daily. Historical Med Insulin Degludec (Tresiba FlexTouch) 100 UNIT/ML Solution Pen-injector injection Inject 12 Units under the skin at bedtime. Normal Disp-3 mL, R-3 latanoprost 0.005 % Solution ophthalmic solution Historical Med multivitamin tablet Take 1 tablet by mouth daily. Historical Med MARGIE !! glucose blood test strips (Accu-Chek Guide) Strip strip Use to check blood sugar 3 times a day Normal Disp-200 strip, R-3 !! glucose blood test strips (FREESTYLE LITE) Strip strip 1 strip by Instructed route 2 times daily. Normal Disp-100 strip, R-3 !! glucose blood test strips (FREESTYLE LITE) Strip strip Use to check blood sugars twice daily Normal Disp-100 strip, R-3 !! GLUCOSE MONITOR LANCETS PRESCRIPTION Use to test blood sugar twice daily Normal Disp-100 Each, R-11 !! GLUCOSE MONITOR PRESCRIPTION Use test blood sugar 3 times a day Normal Disp-1 Each, R-0 hydrALAZINE 50 MG tablet Take 1 tablet by mouth 3 times daily. Historical Med !! - Potential duplicate medications found. Please discuss with provider. Family History: Family History Problem Relation Age of Onset Diabetes Daughter Social History: Social History Socioeconomic History Marital status: Spouse name: Not on file Number of children: Not on file Years of education: Not on file Highest education level: Not on file Occupational History Not on file Tobacco Use Smoking status: Never Smokeless tobacco: Never Vaping Use Vaping Use: Never used Substance and Sexual Activity Alcohol use: Not Currently Drug use: Never Sexual activity: Not on file Other Topics Concern Not on file Social History Narrative Not on file Social Determinants of Health Financial Resource Strain: Not on file Food Insecurity: Not on file Transportation Needs: Not on file Physical Activity: Not on file Stress: Not on file Social Connections: Not on file Intimate Partner Violence: Not on file Housing Stability: Not on file Physical Exam: Physical Exam Vitals (developed signs reviewed, patient is afebrile with a normal pulse, blood pressure is mildly elevated at 163/74, she is not hypoxic pulse ox 98% on room air) reviewed. Constitutional: Comments: Moderately overweight -[place] female resting currently on the stretcher, no respiratory distress HENT: Head: Normocephalic and atraumatic. Nose: Nose normal. Mouth/Throat: Mouth: Mucous membranes are moist. Eyes: Conjunctiva/sclera: Conjunctivae normal. Pupils: Pupils are equal, round, and reactive to light. Cardiovascular: Rate and Rhythm: Normal rate and regular rhythm. Pulses: Normal pulses. Pulmonary: Effort: Pulmonary effort is normal. Breath sounds: Normal breath sounds. Abdominal: General: Abdomen is flat. Musculoskeletal: General: Normal range of motion. Cervical back: Normal range of motion. Comments: There are 2 incisions on the medial aspect of the left medial thigh. The most proximal incision is approximately 3 cm long and appears to be well-healing. There is a small area at the distal and with a very minimal amount of venous bleeding. There is no local fluctuance. There is no purulent drainage. The area around this is firm consistent with a hematoma/seroma The distal incision is approximately 8 cm long and appears to be well-healing. There is an open area at the distal end of this incision with a small amount of venous oozing. The patient was asked to stand up which increase the oozing somewhat. There is a local ecchymosis but no induration. There is no warmth or purulent drainage. There is no calf swelling or tenderness. Skin: General: Skin is warm. Capillary Refill: Capillary refill takes less than 2 seconds. Neurological: General: No focal deficit present. Mental Status: She is alert. Psychiatric: Mood and Affect: Mood normal. Vital Signs During ED Visit Patient Vitals for the past 24 hrs: BP Temp Temp src Pulse Resp SpO2 Height 04/11/23 0115 163/74 -- -- 65 18 -- -- 04/10/23 2323 -- -- -- -- -- -- 1.676 m (5' 6) 04/10/23 2319 141/65 98.9 F (37.2 C) Oral 60 14 98 % -- Orders/Results: No orders of the defined types were placed in this encounter. Results for orders placed or performed in visit on 08/08/20 HEMOGLOBIN A1C, MANUAL ENTER Result Value Ref Range HEMOGLOBIN A1C, MANUAL ENTER 7.8 (A) 4.7 - 5.6 % Radiographic Imaging No orders to display Procedures: Procedures Moderate Sedation Procedure: No ED Summary/MDM This 72-year-old female who recently had a vein harvested from the medial aspect of her left leg for a dialysis fistula presents for evaluation of drainage from the site. She was seen in follow-up yesterday at the vascular surgeon's office and Steri-Strips were placed over the areas that is draining. She was told at that time that the incisions appeared to be healing well and there was no sign of infection. She was not satisfied with that explanation and return to emergency department for evaluation. My findings are similar. She appears to have resolving hematomas with a small amount of drainage from the distal end of both incisions where the veins were harvested. There is mild local induration at the more proximal incision and mild ecchymosis related to the more distal incision without any purulent drainage or signs of infection. I placed Steri-Strips over both areas where they were draining and the patient was given the Steri-Strips to use if the anti-place fall off. I explained to her that this is likely related to hematomas that are resultant from her vein harvesting and the bleeding will ultimately stop. She is on aspirin and gets heparin infusion with her dialysis. Encouraged to return to emergency department if she has fever, drainage from the incisions becomes purulent or foul-smelling or any concerns. Clinical Impression: 1. Hematoma No follow-ups on file. Discharge Medication List as of 04/11/2023 12:58 AM Discharge Medication List as of 04/11/2023 12:58 AM An After Visit Summary was printed and given to the patient with above information. . . Nguyen Emerson DO 04/11/[address] [facility] 04-11-2023 Emergency department Note Pt is resting with grandaughter at bedside, Call light within reach, denies any further needs or questions at this time [facility] 04-05-2023 History of Present illness Narrative Noted. [facility] Unsuccessful 2nd attempt for [facility] outreach. Voicemail left for pt with request for return call. Unsuccessful CHEVY letter sent via [employer] 04/03/23. Pt meets CHEVY criteria since two attempts have been made. Will have PCP office outreach to schedule. [facility] Admitted: 04/01/23 Discharged: 04/02/23 Diagnosis: Malfunctioning AV graft Procedure: 04/02/23- VR Dialysis Cath Insert Tunnel No changes in medications Future Appointments Date Time Provider Department Center 07/10/2023 2:00 PM Danny Rose MD [facility] documented in this encounter [facility] 03-27-2023 Discharge summary Note Date/Time March 27, 2023 3:29pm [facility] Medical Records Department [address] [place] [address] Discharge Summary 03/27/23 1527 MR#: [id number] Acct: [id number] Name: LESLIE CARCAMO Rep #:[id number] : 1950 72 From: Chapis MULLER PCP: Dr. Chris Ford MD Status:ADM IN Location: [place] [address] Providers Date of Admission: 03/26/23 Primary Care Physician: Dr. Chris Ford MD Reason For Visit: left upper extremity revascularization using dista Diagnosis Discharge Diagnosis (1) Steal syndrome dialysis vascular access: Status: Chronic Code(s): T82.898A - Other specified complication of vascular prosthetic devices, implantsand grafts, initial encounter Qualifiers: Encounter type: initial encounter Qualified Code(s): T82.898A - Other specified complication of vascular prosthetic devices, implants and grafts, initial encounter Medications at Discharge Home Medications allopurinol 100 mg tablet 150 mg PO DAILY GOUT 10/25/22 amlodipine 10 mg tablet 10 mg PO QHS BP 10/25/22 aspirin 81 mg tablet,delayed release 81 mg PO DAILY HEART HEALTH 10/25/22 atorvastatin 40 mg tablet 40 mg PO SUTH CHOLESTEROL 10/25/22 carvedilol 25 mg tablet 25 mg PO BID HEART 10/25/22 clonidine HCl 0.2 mg tablet 0.2 mg PO BID BP 10/25/22 dulaglutide 1.5 mg/0.5 mL subcutaneous pen injector (Trulicity) 1.5 mg subcut QWEEK DEPRESSION 10/25/22 ergocalciferol (vitamin D2) 1,250 mcg (50,000 unit) capsule (Vitamin D2) 1,250 mcg PO QMONTH SUPPLEMENT 10/25/22 furosemide 80 mg tablet 80 mg PO DAILY WATER PILL 10/25/22 insulin degludec 200 unit/mL (3 mL) subcutaneous pen (Tresiba FlexTouch U-200 insulin) 10 unit subcut QHS DIABETES 10/25/22 multivit,Ca,csa-cdxh-BQ-guarana-caff 9 mg iron-400 mcg-200 mg tablet (One-A-Day Energy) 1 tab PO DAILY SUPPLEMENT 10/25/22 clonidine HCl 0.2 mg tablet 0.5 mg PO DAILY PRN hypertensive emergency 01/10/23 sacubitril 49 mg-valsartan 51 mg tablet (Entresto) 1 tab PO BID BP 03/19/23 oxycodone 5 mg tablet 5 mg PO Q8H PRN PRN Pain Score 4-10 3 days #9 tabs 03/27/23 Hospital Course Summary of Care Provided Hospital Course: Patient underwent revascularization using distal inflow, angioplasty/stent venous anastomosis of left fracture of any AV graft. This procedure was performed due to steal syndrome with associated ischemic amyotrophy of the LUE. Patient was routinely admitted the following this procedure for continued monitoring. She has remained hemodynamically stable although her blood pressures are lower than her usual baseline. She reports feeling well overall, was drowsy this morning but feels back to her baseline this afternoon. She did okay with ambulating and getting up to the chair with no dizziness or syncope/presyncope. She does think that her hand already feels some better since surgery yesterday, she feels like its not cramping as much. Following surgery, she does have some antecubital bruising and moderate associated swelling, but this area is stable in size and soft to palpation and should resolve with time. She has incision sites along the left medial thigh where vein was harvested. These incision sites were closed with skin glue and are currently covered with silver postoperative dressings. These postoperative dressings will be left in place for 1 week after which time they can be removed and the incisions will no longer need to remain covered. She also has 2 small incisions and the left upper arm which are covered by surgical glue, these do not otherwise need to be covered. Following surgery, patient does have a bruit in the left upper extremity AV graft. No risk of surgery was improvement to the hand symptoms but failure of the graft so will need to continue to monitor for this. She is scheduled for outpatient dialysis on Saturday, and they may proceed with dialysis as usual usingtheir typical locations to access the graft. Given her lower blood pressures following surgery yesterday, we will continue her home clonidine but hold her other antihypertensive medications. She understands that she is to check her blood pressure is 1-2 times daily at home. When her systolic blood pressure is greater than 140 she may restart her other blood pressure medications. understands to call the office with any questions or concerns regarding her blood pressure with these medications. She is discharged in medically stable condition. She will follow-up in the office in 2 to 4 weeks for follow-up or sooner as needed. Physical Exam Const oriented x3 and no apparent distress Resp normal respiratory effort, no retractions and no use of accessory muscles Effort and Inspection: able to speak in complete sentences; Negative for respiratory distress, labored, stridor or audible wheezes Cardio regular rhythm Rate: bradycardia Extremity Extremity Narrative: She has surgical incisions along the medial aspect of her left thigh, these are currently covered by silver postoperative dressings. There is no significant erythema, warmth, drainage noted. There is expected tenderness in this area. Theremainder of the LLE and her RLE are without any significant swelling. L upper extremity AV graft with +bruit. 2 small incision sites are covered by surgical glue, no focal swelling, redness, warmth, excessive tenderness, drainage. There is ecchymosis in the antecubital space without associated focal swelling. There is more diffuse swelling throughout the surgical site which is expected, it is all soft to palpation and the swelling has remained stable throughout the day. Weight / BMI Weight Weight: 179 lb 14.355 oz Body Mass Index (BMI) 29.0 ABG / Lab / Microbiology Data 03/27/23 06:45 03/27/23 06:45 Laboratory: Laboratory Results - last 24 hr 03/26/23 19:17: POC Glucose 119 H 03/26/23 23:12: POC Glucose 239 H 03/27/23 06:45: WBC 7.6, RBC 3.04 L, Hgb 9.3 L, Hct 32.7 L, MCV 107.6 H, MCH 30.6, MCHC 28.4 L, RDW Std Deviation 67.6 H, RDW Coeff of Geovany 17.6 H, Plt Count 244, MPV 11.1, Immature Gran % (Auto) 0.500, Neut % (Auto) 62.6, Lymph % (Auto) 23.9, Greene % (Auto) 11.8 H, Eos % (Auto) 0.5, Baso % (Auto) 0.7, Absolute Neuts (auto) 4.7, Absolute Lymphs (auto) 1.81, Nucleated RBC % 0.3, Differential Comment SCANNED, Anisocytosis 1+, Macrocytosis 1+, Sodium 137, Potassium 5.6 H, Chloride 107, Carbon Dioxide 21.0, Anion Gap 9, BUN 45 H, Creatinine 6.91 H, Estim Creat Clear Calc 6.99, Est GFR (MDRD) Af Amer 8 L, Est GFR (MDRD) Non-Af 6L, BUN/Creatinine Ratio 6.5 L, Glucose 170 H, Calcium 8.4 L 03/27/23 06:59: POC Glucose 155 H 03/27/23 11:00: POC Glucose 138 H Radiography Diagnostic Testing: Radiology Impression Fluoroscopy 03/26/23 14:32 IMPRESSION: Satisfactory angioplasty and stent placement of the stenosis at the level of the fistula. Electronically Signed: Jimmie Wiley MD at 8:15 EST , D/C Instructions Discharge Diet: No restrictions Weight Bearing Status: Weight bearing as tolerated Lifting Restricted to (Lbs): 20 Lifting Restrictions: Do not lift greater than 20 pounds for 2-3 weeks Call your doctor if your incision/area has: Sudden Increased Bleeding, IncreasedPain/ Swelling and Foul Smelling Discharge Call your doctor if you observe: Fever of 101 or Higher and Uncontrolled pain Additional Instructions: You have incisions along the inside of your left thigh. These are currently covered with adhesive dressings which are to remain in place for 1 week. Once these dressings are removed you do not need to keep these incision sites coveredas they are protected by surgical glue. The 2 incision sites on your left arm are also covered with surgical glue. The glue will peel off on its own over the next couple of weeks. Please do not pick at it. Your blood pressures have been on the low side following surgery. This is most likely due to the anesthesia and I expect your blood pressures to return to their typical baseline over the next few days. Because your blood pressures are low we are going to make some temporary adjustments to your medications. For now, please continue to take your clonidine (catapress) 0.2 mg twice daily and yourEntresto (sacubitril/valsartan) twice daily as prescribed. Please hold your carvedilol 25 mg twice daily and your amlodipine 10 mg daily and and your furosemide (Lasix) 80 mg daily. Please check your blood pressure at home 1-2 times a day for the next week. When your systolic blood pressure (top number) isgreater than 140 then you may restart your other blood pressure medications. Please call the office if your blood pressures remain low or you have any other questions or concerns. You are cleared to have dialysis as scheduled on Saturday. They may continue to access your graft in the usual location. If they have any questions or concerns,they may reach out to our office. Do not lift greater 20 pounds for 2-3 weeks with your left arm. Otherwise, can continue with activity as tolerated. Your note for your first postoperative visit on 04/18/2023. If you need to change this appointment or have any other questions or concerns please call the office at [phone]. Please Follow Up With: Papito Martinez MD When: 04/18/2023 Meaningful Use Info Meaningful Use Diagnoses (Choose all that apply): None applicable Discharge Plan Admission Admit Date/Time: 03/26/23 09:14 Primary Reason for Your Visit: revascularization using distal inflow, angioplasty/stent venous anastomosis Attending Provider: Papito Martinez Primary Care Provider: Chris Ford Discharge Orders/Prescriptions Prescriptions: New oxycodone 5 mg Tablet 5 mg PO Q8H PRN PRN (Reason: Pain Score 4-10) 3 Days Qty: 9 0RF Continued aspirin 81 mg tablet,delayed release (DR/EC) 81 mg PO DAILY allopurinol 100 mg tablet 150 mg PO DAILY atorvastatin 40 mg tablet 40 mg PO SUTH clonidine HCl 0.2 mg tablet 0.2 mg PO BID ergocalciferol (vitamin D2) [Vitamin D2] 1,250 mcg (50,000 unit) capsule 1,250 mcg PO QMONTH Trulicity 1.5 mg/0.5 mL pen injector 1.5 mg subcut QWEEK One-A-Day Energy 9 mg iron-400 mcg-200 mg tablet 1 tab PO DAILY insulin degludec [Tresiba FlexTouch U-200] 200 unit/mL (3 mL) insulin pen 10 unit subcut QHS clonidine HCl 0.2 mg tablet 0.5 mg PO DAILY PRN (Reason: hypertensive emergency) Patient Comments: prn during dialysis Entresto 49-51 mg tablet 1 tab PO BID Held amlodipine 10 mg tablet 10 mg PO QHS Hold Instructions: Resume on 03/30/23. Hold until systolic blood pressure is greater than 140 carvedilol 25 mg tablet 25 mg PO BID Hold Instructions: Resume on 03/30/23. Hold until systolic blood pressure is greater than 140 Rx Instructions: must administer with a meal/food furosemide 80 mg tablet 80 mg PO DAILY Hold Instructions: Resume on 03/30/23. Hold until systolic blood pressure is greater than 140 Referrals / Follow Up: Chris Ford MD [Primary Care Provider] - Disposition Disposition (needs filled in before D/C Order can be placed): Home, Self Care 03/27/231628 <Electronically signed by Chapis MULLER> Cosigner Signature (if applicable): 03/27/231712 <Electronically signed by Papito Martinez MD> CC: RENZO Cui; Dr. Papito Martinez MD; Dr. Chris Ford MD~ Signed [facility] Work Phone: 1(314) 753-753311-15-2023 Procedure [facility] 03-26-2023 History and physical note Author Papito Martinez [facility] March 26, 2023 1:39pm Note Date/Time March 26, 2023 1:39pm [facility] Medical Records Department [address] [place] [address] History & Physical Exam 03/26/23 1336 MR#: [id number] Acct: [id number] Name: LESLIE CARCAMO Rep #:[id number] : 1950 72 From: Papito Martinez MD PCP: Dr. Chris Ford MD Status:ADM IN Location: [facility] HPI - General General Date of Admission: 03/26/23 HPI Narrative LESLIE CARCAMO, is a 72 F who presents with left hand pain/paresthesias after upperarm AV graft. left upper extremity arteriogram revealed satisfactory inflow vessels with no stenosis; minimal contrast transits beyond graft anastomosis which is generous in size. There is also a venous anastomosis stenosis. She presents for revascularization with distal inflow, angioplasty/stent of venous outflow [facility] Medical History (Updated 03/19/23 @ 13:50 by Katie Cam) Alcohol use Anemia Arthritis Chronic renal failure Diabetes Gout History of echocardiogram History of renal dialysis History of stress test Hypertension Insulin dependent diabetes mellitus Non-smoker Post-menopausal Problem with dialysis access Shortness of breath on exertion Steal syndrome dialysis vascular access Wears glasses Home Medications allopurinol 100 mg tablet 150 mg PO DAILY GOUT 10/25/22 [History Last Taken 03/25/23] amlodipine 10 mg tablet 10 mg PO QHS BP 10/25/22 [History Last Taken 03/25/23] aspirin 81 mg tablet,delayed release 81 mg PO DAILY HEART HEALTH 10/25/22 [History Last Taken 03/25/23] atorvastatin 40 mg tablet 40 mg PO SUTH CHOLESTEROL 10/25/22 [History Last Taken 03/25/23] carvedilol 25 mg tablet 25 mg PO BID HEART 10/25/22 [History Last Taken 03/26/23] clonidine HCl 0.2 mg tablet 0.2 mg PO BID BP 10/25/22 [History Last Taken 03/26/23] dulaglutide 1.5 mg/0.5 mL subcutaneous pen injector (Trulicity) 1.5 mg subcut QWEEK DEPRESSION 10/25/22 [History Last Taken Unknown] ergocalciferol (vitamin D2) 1,250 mcg (50,000 unit) capsule (Vitamin D2) 1,250 mcg PO QMONTH SUPPLEMENT 10/25/22 [History Last Taken 03/25/23] furosemide 80 mg tablet 80 mg PO DAILY WATER PILL 10/25/22 [History Last Taken 03/25/23] insulin degludec 200 unit/mL (3 mL) subcutaneous pen (Tresiba FlexTouch U-200 insulin) 10 unit subcut QHS DIABETES 10/25/22 [History Last Taken 03/25/23] multivit,Ca,qbj-rklw-[place]-guarana-caff 9 mg iron-400 mcg-200 mg tablet (One-A-Day Energy) 1 tab PO DAILY SUPPLEMENT 10/25/22 [History Last Taken 03/25/23] clonidine HCl 0.2 mg tablet 0.5 mg PO DAILY PRN hypertensive emergency 01/10/23 [History Last Taken Unknown] sacubitril 49 mg-valsartan 51 mg tablet (Entresto) 1 tab PO BID BP 03/19/23 [History Last Taken 03/26/23] Allergy/AdvReac Type Severity Reaction Status Date / Time No Known Allergies Allergy Verified 03/26/23 10:16 Family History (Updated 01/10/23 @ 14:03 by Rita Rider) Aunt CVA (cerebral vascular accident) Sister Asthma Daughter Thyroid disorder CVA (cerebral vascular accident) Daughter Diabetes Hypertension Kidney disease High cholesterol Surgical History (Updated 03/19/23 @ 13:50 by Katie Cam) History of arteriovenostomy for renal dialysis History of hysterectomy History of infusaport central venous catheter insertion History of partial nephrectomy Hx of excision of mass Social History Smoking Status: Never smoker alcohol intake: current alcohol intake frequency: a few times a month substance use type: does not use ROS Constitutional Constitutional: Denies chills, fever(s), frequent falls, lethargy or weakness Eyes Eyes: Denies blind spots, change in vision or loss of vision ENT HEENT: Denies bleeding gums, hoarseness or sore throat Cardiovascular Cardiovascular: Denies abdominal pain, bluish discoloration of hand/feet, chest pain with activity, claudication, cold extremities, cyanosis, dyspnea on exertion, erythema on extremities, irregular heart rhythm, leg edema, leg ulcers, numbness in extremities or weakness in extremities Respiratory/Chest Respiratory/Chest: Denies cough, excessive phlegm production, shortness of breath at rest, shortness of breath with exertion or wheezing Gastrointestinal Gastrointestinal: Denies anorexia, change in stool character, constipation, diarrhea, melena or rectal bleeding Genitourinary Genitourinary: Denies dysuria or hematuria Musculoskeletal Musculoskeletal: Denies abnormal gait Integumentary Integumentary: Reports other Details: ; Denies erythema, non-healing lesions or wounds Neurologic Neurologic: Denies abnormal speech, focal weakness, headache(s), loss of vision,numbness, paresthesias or sensory deficit Hematologic/Lymphatic Hematologic/Lymphatic: Denies easy bleeding, easy bruising or lymphadenopathy Vital Signs Vital Signs Vital Signs: 03/26/23 10:17 03/26/23 10:17 Temperature 97.2 F L Temperature Source Temporal Pulse Rate 67 Respiratory Rate 17 Respiratory Pattern Normal Blood Pressure 178/67 H Blood Pressure Mean 104 Blood Pressure Source Monitor Blood Pressure Position Semi-Fowlers Blood Pressure Location Right Arm Pulse Ox 99 Oxygen Delivery Method Room Air Weight Weight: 183 lb 13.848 oz Body Mass Index (BMI) 29.7 Physical Exam Const alert, oriented x3, no apparent distress and healthy appearing General Appearance: cooperative; Negative for combative or lethargic Orientation / Consciousness: awake Exam Limitations: no limitations HEENT Head and Scalp: normocephalic and atraumatic Eyes EOMs intact bilaterally General Eye: normal appearance of both eyes Neck full ROM, no lymphadenopathy, thyroid normal and No no carotid bruits General: trachea midline; Negative for lymphadenopathy or tenderness Thyroid: thyroid normal Lymph Lymphatic: Negative for no lymphadenopathy noted Resp normal respiratory effort, no use of accessory muscles and clear to auscultationbilaterally Effort and Inspection: Negative for labored, stridor or audible wheezes Cardio regular rate, regular rhythm and no murmurs Peripheral Pulses: brachial pulses present, radial pulses present, femoral pulses present, popliteal pulses present, posterior tibial pulses present and dorsalis pedis pulses present GI non-tender and non-distended; Negative for hepatosplenomegaly Back/Spine Cervical Spine: cervical ROM normal Extremity full ROM, normal capillary refill and no clubbing, cyanosis or edema Skin no rashes or lesions noted and no wounds Neuro oriented x3, CN's II-XII intact bilaterally, no focal motor deficits and no sensory deficits noted Psych thought process normal, cooperative, affect normal, speech normal and activity/motor behavior normal Results Lab / Micro Data Labs: Laboratory Results - last 24 hr 03/26/23 10:23: POC Glucose 140 H 03/26/23 10:37: Blood Type A POSITIVE, Antibody Screen NEGATIVE Assessment & Plan Assessment/Plan (1) Steal syndrome dialysis vascular access: QUALIFIERS: Encounter type: initial encounter Qualified Code(s): T82.898A - Other specified complication of vascular prosthetic devices, implantsand grafts, initial encounter PLAN: -revascularization with distal inflow -angioplasty/stent venous outflow 03/26/23 1339 <Electronically signed by Papito Martinez MD> Cosigner Signature (if applicable): CC: Dr. Papito Martinez MD; Dr. Chris Ford MD~ Signed [facility] Work Phone: [phone]) 980-119809-28-2023 Procedure [facility] 01-05-2023 Evaluation + Plan note* Assessment & Plan Note - Danny Rose MD - 01/05/2023 9:30 PM EDTAssociated Problem(s): Annual physical exam -Counseled on healthy diet. -Counseled on importance of exercise - 150mins/ week of moderate activity as tolerated -Depression screening was negative -Tobacco counseling not indicated -Alcohol screening negative -Immunizations reviewed. -Discussed pap recommendations: no longer indicated -Discussed breast cancer screening: up to date with obstetrics & gynecology -Discussed colon cancer screening: up to date -Discussed osteoporosis screening: up to date [id number] Miscellaneous Notes* Assessment & Plan Note - Danny Rose MD - 01/05/2023 9:30 PM EDTAssociated Problem(s): Annual physical exam -Counseled on healthy diet. -Counseled on importance of exercise - 150mins/ week of moderate activity as tolerated -Depression screening was negative -Tobacco counseling not indicated -Alcohol screening negative -Immunizations reviewed. -Discussed pap recommendations: no longer indicated -Discussed breast cancer screening: up to date with obstetrics & gynecology -Discussed colon cancer screening: up to date -Discussed osteoporosis screening: up to date documented in this [id number] Instructions* Patient Instructions* Danny Rose MD - 01/02/2023 3:48 PM EDT Pepcid Chewable, Prilosec. Takes these with fattier foods, fried foods etc. STEADI Low Risk Patient Instructions: Your Falls Screening today shows that you are at low risk for falls. To further protect yourself from falls and maintain your independence, we recommend: 1. Read through the brochure, What You Can Do to Prevent Falls (from [facility]). 2. Go through the brochure, Check for Safety: A Home Fall Prevention Checklist for Older Adults (from [facility]), and make changes as recommended. 3. Join a community falls prevention program: Stepping On, a 7-week evidence based program that teaches balance exercises and fall prevention strategies Norman Chi for older adults, group exercise that teaches Norman Chi forms that reduce fall risk (weight shifting, postural alignment and control, and coordinated movements of the arms, legs, head, and trunk) Matter of Balance, an evidence based program designed to reduce the fear of falling and increase activity levels of older adults OR an exercise class for strength and balance. 4. Take your Vitamin D with or without Calcium, as determined by your healthcare provider. 5. Get your vision and hearing checked annually. Falls At Home Each year, thousands of older Americans fall at home. Many of them are seriously injured, and some are disabled. In 2011, nearly 23,000 people over age 65 and 2.4 million were treated in emergency departments because of falls. Falls are often due to hazards that are easy to overlook but easy to fix. This checklist will help you find and fix those hazards in your home. The checklist asks about hazards found in each room of your home. For each hazard, the checklist tells you how to fix the problem. At the end of the checklist, you ll find other tips for preventing falls. FLOORS: Look at the floor in each room. Q: When you walk through a room, do you have to walk around furniture? A. Ask someone to move the furniture so your path is clear Q: Do you have throw rugs on the floor? A. Remove the rugs or use double-sided tape or a non-slip backing so the rugs won t slip. Q: Are there papers, books, towels, shoes, magazines, boxes, blankets, or other objects on the floor? A.jewel cupping machine operator things that are on the floor. Always keep objects off the floor. Q: Do you have to walk over or around wires or cords (like lamp, telephone, or extension cords)? A. Coil or tape cords and wires next to the wall so you can t trip over them. If needed, have an nurses supervisor put in another outlet. STAIRS AND STEPS: Look at the stairs you use both inside and outside your home. Q: Are there papers, shoes, books, or other objects on the stairs? A. jewel cupping machine operator things on the stairs. Always keep objects off stairs. Q: Are some steps broken or uneven? A. Fix loose or uneven steps. Q: Are you missing a light over the stairway? A. Have an nurses supervisor put in an overhead light at the top and bottom of the stairs. Q: Do you have only one light switch for your stairs (only at the top or at the bottom of the stairs)? A. Have an nurses supervisor put in a light switch at the top and bottom of the stairs. You can get lightswitches that glow. Q: Has the stairway light bulb burned out? A. Have a friend or family member change the light bulb. Q: Is the carpet on the steps loose or torn? A. Make sure the carpet is firmly attached to every step, or remove the carpet and attach non-slip rubber treads to the stairs. Q: Are the handrails loose or broken? Is there a handrail on only one side of the stairs? A. Fix loose handrails or put in new ones. Make sure handrails are on both sides of the stairs and are as long as the stairs. KITCHEN: Look at your kitchen and eating area. Q: Are the things you use often on high shelves? A. Move items in your cabinets. Keep things you use often on the lower shelves (about waist level). Q: Is your step stool unsteady? A. If you must use a step stool, get one with a bar to hold on to. Never use a chair as a step stool. BATHROOMS: Look at all your bathrooms. Q: Is the tub or shower floor slippery? A. Put a non-slip rubber mat or self-stick strips on the floor of the tub or shower. Q: Do you need some support when you get in and out of the tub or up from the toilet? A. Have grab bars put in next to and inside the tub and next to the toilet. BEDROOMS: Look at all your bedrooms. Q: Is the light near the bed hard to reach? A. Place a lamp close to the bed where it s easy to reach. Q: Is the path from your bed to the bathroom dark? A. Put in a night-light so you can see where you re walking. Some night-lights go on by themselves after dark. Other Things You Can Do to Prevent Falls Do exercises that improve your balance and make your legs stronger. Exercise also helps you feel better and more confident. Have your doctor or pharmacist look at all the medicines you take, even [id number] medicines.Some medicines can make you sleepy or dizzy. Have your eyes checked by an eye doctor at least once a year and update your glasses. Get up slowly after you sit or lie down. Wear shoes both inside and outside the house. Avoid going barefoot or wearing slippers. Improve the lighting in your home. Put in brighter light bulbs. Florescent bulbs are bright and cost less to use. It s safest to have uniform lighting in a room. Add lighting to dark areas. Hang lightweight curtains or shades to reduce glare. [place] a contrasting color on the top edge of all steps so you can see the stairs better. For example, use a light color paint on dark wood. To access this brochure online, please visit the CDC website at http://www.cdc.gov/steadi/pdf/check_for_safety_brochure-a.pdf Chair Rise Exercise What it does: Strengthens the muscles in your thighs & buttocks. Goal: To do this exercise without using your hands as you become stronger. How to do it: 1. Sit toward the front of a sturdy chair with your knees bent & feet flat on the floor shoulder-width apart 2. Rest your hands lightly on the seat on either side of you, keeping your back & neck straight& and chest slightly forward. 3. Breathe in slowly. Lean forward & feel your weight on the front of your feet. 4. Breathe out and slowly stand up, using your hands as little as possible. 5. Pause for a full breath in & out. 6. Breathe in as you slowly sit down. Do not let yourself collapse back down into the chair. Rather, control your lowering as much as possible. 7. Breathe out. Repeat 10-15 times. If this number is too hard for you when you first start practicing this exercise, begin with fewer and work up to this number. Rest for a minute & then do a final set of 10-15. For detailed instructions, please visit the CDC website at http://www.cdc.gov/steadi/pdf/chair_rise_exercise-a.pdf Stepping On is an evidence based program proven to reduce falls in older adults. It is a workshop offered once a week for seven weeks. In a small-group setting, you will learn balance exercises and develop specific knowledge and skills to prevent falls. Older adults who should attend are those who: are at risk of falling who have fallen one or more times lives at home are able to walk without the help of another person Local guest experts provide information on exercise, safety, vision, and medications. Classes are offered at [facility]. To find out specifics about a class, please call [phone]. Norman chi: Moving for Better Balance involves low impact exercise. The 12-week class is offered for three hours per week and is led by a trained humanities instructor. It is intended for people aged 60 and older. Participants learn and perform a program of eight forms that progress from easy to more difficult. The program can accommodate persons with various physical conditions. Health Benefits of Norman Chi: Moving for Better Balance: Improved social and mental well-being, Improved balance and physical functioning, Improved confidence in conducting daily activities, Reduced risk of falling and sustaining associated injuries, and Maintained independence and improved quality of life. To find a Norman Chi program in your area or additional resources about fall prevention please contact: [facility] Violence and Injury Prevention Program at [phone] or [email or web address] A Matter of Balance: Managing Concerns about Falls is an evidence based program designed to reduce the fear of falling and increase activity levels of older adults. A trained facility service manager leads 8 two-hour sessions for small groups of older adults. The class is intended for people 60 and older who are at risk of falling have a fear of falling or restrict activities who have fallen in the past are interested in improving flexibility, balance, and strength. Participants will learn to view falls as controllable, set goals to increase activity levels, and reduce fall risks at home. Classes are offered in all [address] [place] [address] in [place]. For more information about specific classes near you, please visit http://aging.[place].gov/steadyu/resources/matterofbalance.aspx. * Attachments The following attachments cannot be sent through Care Everywhere. * Well Visit: Over 65 Years (Salvad[place]) documented in this [id number] History of Present illness Narrative* Danny Rose MD - 01/02/2023 3:33 PM EDT Images from the original note were not included. Leslie Carcamo is a 72 y.o. female Assessment/Plan: Problem List Items Addressed This Visit Other Annual physical exam - Primary -Counseled on healthy diet. -Counseled on importance of exercise - 150mins/ week of moderate activity as tolerated -Depression screening was negative -Tobacco counseling not indicated -Alcohol screening negative -Immunizations reviewed. -Discussed pap recommendations: no longer indicated -Discussed breast cancer screening: up to date with obstetrics & gynecology -Discussed colon cancer screening: up to date -Discussed osteoporosis screening: up to date Other Visit Diagnoses At low risk for fall Return in about 6 months (around 07/05/2023) for Chronic care. Leslie Carcamo is a 72 y.o. female who presents for Chief Complaint Patient presents with Annual Exam Gap Closure (Health Maintenance) Mammogram due on 08/24/2021 Foot Exam due on 03/17/2022 Tetanus due Fall Risk Screening HPI 72 y.o. female presents for preventative health exam. Any concerns/complaints: none Nutrition: 1/2 out and 1/2 cooking. Vegetables most days and fruit daily. She was getting gout but restarted eating meat. Water- 32 oz Coffee- 3 times a week Not much soda or juice Alcohol- about once a month Exercise: started back the BlueCava. 1-1.5 hr. Goes about 1-2 days a week. Supplement: vitamin D and one a day. Sleep: gets about 5-6 hours, no medications Dentist: no Any Family history of breast cancer, uterine cancer or ovarian cancer? no Any family history of colon cancer? No Obstetrics & gynecology History , Sexually active: no Any breast concerns? no Last mammogram: OBGYN Last pap smear (HPV): obstetrics & gynecology, hysterectomy due to fibroids. On HRT back then Last DEXA scan: 11/2018 Last Colonoscopy: 2021 Patient Active Problem List Diagnosis H/O partial nephrectomy End stage renal disease (HCC) Anemia due to stage 5 chronic kidney disease (HCC) COAG (chronic open-angle glaucoma) Essential hypertension Mixed hyperlipidemia Chronic midline low back pain without sciatica Class 1 obesity due to excess calories with serious comorbidity and body mass index (BMI) of 30.0 to 30.9 in adult Type 2 diabetes 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, with long-term current use of insulin(HCC) Gout History of renal cell carcinoma Chest pain Pain of left upper extremity Secondary hyperparathyroidism of renal origin (HCC) S/P arteriovenous (AV) fistula creation (HFpEF) heart failure with preserved ejection fraction (HCC) Numbness and tingling in left hand Annual physical exam Past Surgical History: Procedure Laterality Date COLONOSCOPY N/A 10/18/2021 Procedure: COLONOSCOPY with polypectomy; Surgeon: Chris Stovall MD; [place] [facility] Service: Gastroenterology CV IR INTERVENTIONAL RADIOLOGY N/A 11/14/2021 Procedure: IR DIALYSIS CATHETER INSERTION TUNNELED; Surgeon: Gerhard Walker MD; Location: IR LAB; Service: Interventional Radiology CV IR INTERVENTIONAL RADIOLOGY N/A 06/19/2022 Procedure: VR Fistulagram w/Intervention; Surgeon: Yan Campbell MD; Location: IR LAB; Service: Interventional Radiology CV IR INTERVENTIONAL RADIOLOGY N/A 11/08/2022 Procedure: VR Dialysis Catheter Removal; Surgeon: Froilan Lang MD; Location: IR LAB; Service: Interventional Radiology EGD N/A 10/18/2021 Procedure: ESOPHAGOGASTRODUODENOSCOPY with biopsy and polypectomy; Surgeon: Chris Stovall MD; [place] [facility]; Service: Gastroenterology fatty tumor removed fibroid removed uterine FISTULA ARTERIOVENOUS Left 04/23/2022 Procedure: Attempted LEFT BRACHIOBASILIC FISTULA CREATION; Surgeon: Yan Campbell MD; Location: Main OR; Service: Gen-Vascular FISTULA ARTERIOVENOUS Left 05/16/2022 Procedure: LEFT UPPER EXTREMITY ARTERIOVENOUS Graft with Propaten PTFE GRAFT INSERTION; Surgeon: Yan Campbell MD; Location: Main OR; Service: Gen-Vascular HERNIA REPAIR HYSTERECTOMY NEPHRECTOMY PARTIAL ROBOTIC XI STAGE 2 Right 03/26/2018 Procedure: RIGHT ROBOTIC ASSISTED LAPAROSCOPIC PARTIAL NEPHRECTOMY LEVEL 2; Surgeon: Nasim Gaspar MD; Location: [facility] Main OR; Service: Urology Family History Problem Relation Age of Onset Hypertension Mother Brain cancer Mother No Known Problems Father Hypertension Sister Heart failure Sister SISTER Lung cancer Brother Hypertension Brother Non-Hodgkin's Lymphoma Daughter Stroke Daughter Hypertension Daughter Surgical complications Neg Hx Anesthesia problems Neg Hx Heart disease Neg Hx Clotting disorder Neg Hx Deep vein thrombosis Neg Hx Pulmonary embolism Neg Hx Social History Tobacco Use Smoking status: Never Smokeless tobacco: Never Vaping Use Vaping Use: Never used Substance Use Topics Alcohol use: Not Currently Comment: socially Drug use: No Current Outpatient Medications Medication Sig Dispense Refill Accu-Chek Guide Glucose Meter Misc USE TEST BLOOD SUGAR 3 TIMES A DAY allopurinoL (ZYLOPRIM) 100 MG tablet Take 1.5 (one and a half) tablets (150 mg total) by mouth daily . amLODIPine (NORVASC) 10 MG tablet Take 1 (one) tablet (10 mg total) by mouth daily AM . aspirin 81 mg chewable tablet Chew and Swallow 1 (one) tablet (81 mg total) daily AM . atorvastatin (LIPITOR) 40 MG tablet Take 1 (one) tablet (40 mg total) by mouth every morning Reasons: high cholesterol. (Patient taking differently: Take 1 (one) tablet (40 mg total) by mouth Twice aweek AM Reasons: high cholesterol.) 90 tablet 3 carvediloL (COREG) 25 MG tablet Take 1 (one) tablet (25 mg total) by mouth 2 (two) times a day withmeals . 120 tablet 0 cloNIDine HCL (CATAPRES) 0.1 MG tablet Take 1 (one) tablet (0.1 mg total) by mouth 2 (two) times a day . dorzolamide-timoloL (COSOPT) 22.3-6.8 mg/mL ophthalmic solution Administer 1 (one) drop to both eyes 2 (two) times a day . dulaglutide (Trulicity) 1.5 mg/0.5 mL Pen Inject 0.5 mL (1.5 mg total) under the skin once a week . FreeStyle Lite Strips strips TEST 3 TIMES DAILY DIRECTED 200 strip 2 furosemide (LASIX) 40 MG tablet 1 tab and 2 tab alternate days . (Patient taking differently: Take 1 (one) tablet (40 mg total) by mouth daily .) 60 tablet 11 hydrALAZINE (APRESOLINE) 50 MG tablet Take 1 (one) tablet (50 mg total) by mouth 2 (two) times a day . insulin degludec (Tresiba FlexTouch U-200) 200 unit/mL (3 mL) InPn Inject 10 (ten) Units under the skin nightly . (Patient taking differently: Inject 10 (ten) Units under the skin nightly PRN .) 4.5 mL 0 Velphoro 500 mg Chew CRUSH OR CHEW AND SWALLOW 1 TABLET 3 TIMES A DAY WITH MEALS Vitamin D2 1,250 mcg (50,000 unit) capsule TAKE 1 CAPSULE BY MOUTH ONCE PER WEEK (WEEKLY) FOR 10 WEEKS THEN START MONTHLY DOSES No current facility-administered medications for this visit. Review of Systems Constitutional: Negative for appetite change, chills, diaphoresis, fatigue and fever. Eyes: Negative for visual disturbance. Respiratory: Negative for cough and shortness of breath. Cardiovascular: Negative for chest pain and palpitations. Gastrointestinal: Negative for abdominal pain. Genitourinary: Negative for dysuria. Musculoskeletal: Negative for back pain. Skin: Negative for rash and wound. Neurological: Negative for dizziness and headaches. Psychiatric/Behavioral: Negative for confusion, dysphoric mood and sleep disturbance. The patient is not nervous/anxious. Physical Exam: BP (!) 156/74 (BP Location: Right arm, Patient Position: Sitting, BP Cuff Size: X-large Adult) Pulse (!) 55 Temp 98.1 F (36.7 C) (Temporal) Resp 16 Ht 5' 5 Wt 83.1 kg (183 lb 3.2 oz) SpO2 98% BMI 30.49 kg/m Wt Readings from Last 3 Encounters: 01/02/23 83.1 kg (183 lb 3.2 oz) 11/08/22 83.2 kg (183 lb 6.4 oz) 08/17/22 83.5 kg (184 lb) BP Readings from Last 3 Encounters: 01/02/23 (!) 156/74 11/08/22 (!) 155/73 08/17/22 (!) 169/79 Physical Exam Vitals reviewed. Constitutional: General: She is not in acute distress. Appearance: She is not ill-appearing. HENT: Head: Normocephalic. Eyes: Conjunctiva/sclera: Conjunctivae normal. Cardiovascular: Rate and Rhythm: Normal rate. Pulses: Dorsalis pedis pulses are 1+ on the right side and 1+ on the left side. Posterior tibial pulses are 1+ on the right side and 1+ on the left side. Pulmonary: Effort: Pulmonary effort is normal. No respiratory distress. Feet: Right foot: Protective Sensation: 10 sites tested. Skin integrity: Callus and dry skin present. Toenail Condition: Right toenails are normal. Left foot: Protective Sensation: 10 sites tested. 10 sites sensed. Skin integrity: Callus and dry skin present. Toenail Condition: Left toenails are normal. Comments: Diabetic Foot Exam: Right Foot: warm, good capillary refill, dry cracking heels, normal DP and PT pulses, normal monofilament exam, and normal sensory exam Left Foot: warm, good capillary refill, normal DP and PT pulses, normal monofilament exam, and normal sensory exam Skin: Findings: No rash. Neurological: Mental Status: She is alert and oriented to person, place, and time. Psychiatric: Mood and Affect: Mood normal. Behavior: Behavior normal. Thought Content: Thought content normal. Health Maintenance Due Topic Date Due Tetanus: Every 10yrs Never done Dexa Scan Never done Pneumococcal Vaccine: Age 65+ (1 - PCV) Never done Zoster Vaccines (1 of 2) Never done Mammogram 08/24/2021 COVID-19 Vaccine (4 - Pfizer series) 08/31/2021 Goals Blood Pressure < 130/80 HEMOGLOBIN A1C < 7 Blood sugar levels outside the normal range may be an indicator of diabetes. Please note: Portions of this chart may have been created with Apse voice recognition software. Occasional wrong-word or sound-like substitutions may have occurred due to inherent limitations of the voice recognition software. Please read the chart carefully and recognize, using context, where the substitutions have occurred. For any new medications prescribed today, patient was educated about indications for the medication, how to take the medication and potential side effects of the medications. Electronically signed by: Danny Rose M.D. 03/26/2018 8:30 PM 07/21/2020 3:00 PM 05/08/2021 2:00 PM 01/02/2023 3:00 PM Depression Screening Little interest or pleasure in doing things 0 0 1 0 Feeling down, depressed, or hopeless 0 0 1 0 PHQ-2 Total Score 0 0 2 0 Trouble falling or staying asleep, or sleeping too much 0 1 Feeling tired or having little energy 0 2 Poor appetite or overeating 0 2 Feeling bad about yourself - or that you are a failure or have let yourself or your family down 0 0 Trouble concentrating on things, such as reading the newspaper or watching television 0 0 Moving or speaking so slowly that other people could have noticed. Or the opposite - being so fidgety or restless that you have been moving around a lot more than usual 0 1 Thoughts that you would be better off , or of hurting yourself in some way 0 0 PHQ-9 Total Score 0 8 If you checked off any problems, how difficult have these problems made it for you to do your work,take care of things at home, or get along with other people? Not difficult at all 03/26/2018 8:30 PM 07/21/2020 3:00 PM 05/08/2021 2:00 PM 01/02/2023 3:00 PM Depression Screening Little interest or pleasure in doing things 0 0 1 0 Feeling down, depressed, or hopeless 0 0 1 0 PHQ-2 Total Score 0 0 2 0 Trouble falling or staying asleep, or sleeping too much 0 1 Feeling tired or having little energy 0 2 Poor appetite or overeating 0 2 Feeling bad about yourself - or that you are a failure or have let yourself or your family down 0 0 Trouble concentrating on things, such as reading the newspaper or watching television 0 0 Moving or speaking so slowly that other people could have noticed. Or the opposite - being so fidgety or restless that you have been moving around a lot more than usual 0 1 Thoughts that you would be better off , or of hurting yourself in some way 0 0 PHQ-9 Total Score 0 8 If you checked off any problems, how difficult have these problems made it for you to do your work,take care of things at home, or get along with other people? Not difficult at all documented in this [id number] History of Present illness Narrative* Monica Kellogg, OT - 12/28/2022 4:45 PM EDT [facility] OUTPATIENT REHABILITATION DAILY TREATMENT NOTE Today's Date 12/28/2022 Patient Name: Leslie Carcamo Date of : 1950 Current Visit #: 8 Authorized Visits: 199 Case Name: Numbness and tingling in Left hand History: Pre-Treatment Pain Scale: 6 Symptoms: gradually worsened Functional Diagnosis: 1. Numbness and tingling in left hand Clinical Information: Subjective: Pt reports her pain is higher today and she has not done her HEP due to family emergencies. Pt states she has another doctor appointment on the . Objective Pt initiated therapy session with L hand in/at fluidotherapy for 10 minutes to warm tissues prior to clinical exercise. The client completed exercises as listed in tx log. Pt completed updated measurements in goal section. Treatments: Occupational Therapy Exercise Log - 12/28/22 5373 OTHER Precautions/Contraindications 2x/wk for 6 wks Notes 16:45-17:30 Vitals HEP- edema glove, contrast bath, yellow sponge in the warm water, tendon glides/digit AROM exs Therapeutic Exercise (02415) Intervention Tendon glides and digit AROM exs, PROM this visit to assist in flex of MF Parameters x 5-10 ea Intervention Resensitization Parameters rice and beans (vision occluded) x5 marbles, 1 lrg 4 sm Intervention Coordination axs-attempting more practical axs such as donning/doffing earrings, jewelry and dressing boards- opening jars, medicine bottles (defer) Parameters completed practicing dressing board with buttonhook and with hands only Intervention Theraputty (defer) Parameters Yellow, x10 beads Intervention Box and blocks (defer) Parameters 15# x 20 stacking x2 taking stacks apart 25# Intervention Clothespins Parameters Green, vertical to middle Intervention Coordination Parameters grooved pegs, coins with 5 in palm x2reps Intervention Re-sensitization (defer) Parameters soft to course, pink towel to hard velcro, crumple paper Additional Exercises Add more exercises? Yes Modalities Modalities Fluidotherapy Parameters 10' OT Treatment Times Therex Total Time 35 Modalities Total Time 10 Direct Treatment Time 45 Total Treatment Time 45 Goals: Occupational Therapy Ortho goals: 12/28/22 L wrist Flex: 50 Ext: 55 Rad: 5 Uln: 33 Pro: 80 Sup: 61 Legal Receptionist: 11 MOBILITY: Patient will demo ability to weight bear or push up from chair using affected UE with No difficulty in 6 weeks. CARRYING/MOVING/HANDLING: Patient will open tight jar using affected UE with No- Minimal difficulty in 6 weeks. CARRYING/MOVING/HANDLING: Patient will be able to carry bags/groceries in affected UE with No-Minimal difficulty in 6 weeks SELF CARE: Patient will perform grooming of hair with No-Minimal difficulty in 6 weeks. IMPAIRMENT: Improve pain from 3-9/10 to 0-1/10 during grasping activities in 6 weeks IMPAIRMENT: Improve AROM of Left Wrist flex/radial deviation/supination from 35/5/45 degrees to 50/15/60 degrees for improved use with ADLs/IADLs in 6 weeks. IMPAIRMENT: Patient will increase left Legal Receptionist average from 10 lbs to at least 25 lbs for improved usewith ADLs/IADLs in 6 weeks. OTHER: Patient will increase FOTO score from 48 to at least 61 to show improved functional outcome in 6 weeks. OTHER: Patient will be able to properly demonstrate independence with HEP in 6 weeks. Patient Education: Quality of movement, Verbal HEP, Diagnosis and recovery specific education, and Pain Management with patient verbalized understanding. Post-Treatment Pain Scale: 2 Assessment: Patient had an expected response to treatment. Pt reported a decrease in pain at end ofsession. Skilled Intervention demonstrated by modifications of treatment per exercise log including increased rate, assessment of patient's response, and modalities as indicated and safety interventions per exercise log. Progress towards goals as expected. Plan for Next Visit: Treatment Visit with focus on decreasing pain and increasing sensation and mobility of L hand to improve grasping and manipulation of items when completing daily ADL/IADL tasks. Monica Kellogg OT State License, [id number] documented in this [id number] History of Present illness Narrative* Monica Kellogg, OT - 12/21/2022 4:45 PM EDT [facility] OUTPATIENT REHABILITATION DAILY TREATMENT NOTE Today's Date 12/21/2022 Patient Name: Leslie Carcamo Date of : 1950 Current Visit #: 7 Authorized Visits: 199 Case Name: Numbness and tingling in Left hand History: Pre-Treatment Pain Scale: 2 Symptoms: stabilized Functional Diagnosis: No diagnosis found. Clinical Information: Subjective: Pt called at 4:48pm to inform that she would be late to appointment, but wanted to do the first machine and an exercise. Pt arrived 5:03pm, 18 minutes late to scheduled appointment. 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 Pt reports she will call on Saturday to clarify. Pt stated that she had dialysis earlier in the day. Objective Pt initiated therapy session with L hand in fluidotherapy for 10 minutes to warm tissues prior to clinical exercise. The client completed exercises as listed in tx log. Treatments: Occupational Therapy Exercise Log - 12/21/22 1708 OTHER Precautions/Contraindications 2x/wk for 6 wks Notes 17:03-17:23 Vitals HEP- edema glove, contrast bath, yellow sponge in the warm water, tendon glides/digit AROM exs Therapeutic Exercise (45650) Intervention Tendon glides and digit AROM exs, PROM this visit to assist in flex of MF Parameters x 5-10 ea Intervention Desensitization (defer) Parameters rice and beans (vision occluded) Intervention Coordination axs-attempting more practical axs such as donning/doffing earrings, jewelry and dressing boards- opening jars, medicine bottles (defer) Parameters completed practicing dressing board with buttonhook and with hands only Intervention Theraputty (defer) Parameters Yellow, x10 beads Intervention Box and blocks (defer) Parameters 15# x 20 stacking x2 taking stacks apart 25# Intervention Clothespins (defer) Parameters Green, vertical to middle Intervention Coordination (defer) Parameters grooved pegs, coins with 5 in palm x2reps Intervention Re-sensitization (defer) Parameters soft to course, pink towel to hard velcro, crumple paper Additional Exercises Add more exercises? Yes Modalities Modalities Fluidotherapy Parameters 10' OT Treatment Times Therex Total Time 10 Modalities Total Time 10 Direct Treatment Time 20 Total Treatment Time 20 Goals: Occupational Therapy Ortho goals: MOBILITY: Patient will demo ability to weight bear or push up from chair using affected UE with No difficulty in 6 weeks. CARRYING/MOVING/HANDLING: Patient will open tight jar using affected UE with No- Minimal difficulty in 6 weeks. CARRYING/MOVING/HANDLING: Patient will be able to carry bags/groceries in affected UE with No-Minimal difficulty in 6 weeks SELF CARE: Patient will perform grooming of hair with No-Minimal difficulty in 6 weeks. IMPAIRMENT: Improve pain from 3-9/10 to 0-1/10 during grasping activities in 6 weeks IMPAIRMENT: Improve AROM of Left Wrist flex/radial deviation/supination from 35/5/45 degrees to 50/15/60 degrees for improved use with ADLs/IADLs in 6 weeks. IMPAIRMENT: Patient will increase left Legal Receptionist average from 10 lbs to at least 25 lbs for improved usewith ADLs/IADLs in 6 weeks. OTHER: Patient will increase FOTO score from 48 to at least 61 to show improved functional outcome in 6 weeks. OTHER: Patient will be able to properly demonstrate independence with HEP in 6 weeks. Patient Education: Quality of movement, Verbal HEP, Diagnosis and recovery specific education, and Pain Management with patient verbalized understanding. Post-Treatment Pain Scale: 1-2 Assessment: Patient had an expected response to treatment. Pt reported that the heat felt good but her pain was mostly unchanged. Skilled Intervention demonstrated by modifications of treatment per exercise log including assessment of patient's response and modalities as indicated and safety interventions per exercise log. Progress towards goals as expected. Plan for Next Visit: Treatment Visit with focus on increasing mobility and endurance in L hand while managing pain to complete daily functional gripping, grasping, and manipulating tasks. Monica Kellogg OT State License, [id number] documented in this [id number] Procedure [facility]08-07-2023 History of Present illness Narrative* Gris Quintero COTA/Rebeca - 12/17/2022 4:45 PM EDT [facility] OUTPATIENT REHABILITATION DAILY TREATMENT NOTE Today's Date 12/17/2022 Patient Name: Leslie Carcamo Date of : 1950 Current Visit #: 6 Authorized Visits: 199 Case Name: Numbness and tingling in Left hand History: Pre-Treatment Pain Scale: 3 Symptoms: stabilized Functional Diagnosis: 1. Numbness and tingling in left hand [R20.0, R20.2] Clinical Information: Subjective: Pt has an EMG scheduled for tomorrow. Pt does not have a follow up scheduled for EMG results yet. Pt states she does not feel any changes since beginning therapy. Objective Pt received fluidotherapy to warm tissue and for desensitization in left hand. Pt completed exercises as listed on tx log below. Treatments: Occupational Therapy Exercise Log - 12/17/22 8482 OTHER Precautions/Contraindications 2x/wk for 6 wks Notes 16:45-17:30 Vitals HEP- edema glove, contrast bath, yellow sponge in the warm water, tendon glides/digit AROM exs Therapeutic Exercise (53810) Intervention Tendon glides and digit AROM exs, PROM this visit to assist in flex of MF Parameters x 5-10 ea (defer) Intervention Desensitization Parameters rice and beans (vision occluded) Intervention Coordination axs-attempting more practical axs such as donning/doffing earrings, jewelry and dressing boards- opening jars, medicine bottles (defer) Parameters completed practicing dressing board with buttonhook and with hands only Intervention Theraputty Parameters Yellow, x10 beads Intervention Box and blocks Parameters 15# x 20 stacking x2 taking stacks apart 25# Intervention Clothespins (defer) Parameters Green, vertical to middle Intervention Coordination (defer) Parameters grooved pegs, coins with 5 in palm x2reps Intervention Re-sensitization (defer) Parameters soft to course, pink towel to hard velcro, crumple paper Additional Exercises Add more exercises? Yes Modalities Modalities Fluidotherapy Parameters 15' OT Treatment Times Therex Total Time 30 Modalities Total Time 15 Direct Treatment Time 45 Total Treatment Time 45 Goals: Occupational Therapy Ortho goals: MOBILITY: Patient will demo ability to weight bear or push up from chair using affected UE with No difficulty in 6 weeks. CARRYING/MOVING/HANDLING: Patient will open tight jar using affected UE with No- Minimal difficulty in 6 weeks. CARRYING/MOVING/HANDLING: Patient will be able to carry bags/groceries in affected UE with No-Minimal difficulty in 6 weeks SELF CARE: Patient will perform grooming of hair with No-Minimal difficulty in 6 weeks. IMPAIRMENT: Improve pain from 3-9/10 to 0-1/10 during grasping activities in 6 weeks IMPAIRMENT: Improve AROM of Left Wrist flex/radial deviation/supination from 35/5/45 degrees to 50/15/60 degrees for improved use with ADLs/IADLs in 6 weeks. IMPAIRMENT: Patient will increase left Legal Receptionist average from 10 lbs to at least 25 lbs for improved usewith ADLs/IADLs in 6 weeks. OTHER: Patient will increase FOTO score from 48 to at least 61 to show improved functional outcome in 6 weeks. OTHER: Patient will be able to properly demonstrate independence with HEP in 6 weeks. Patient Education: Quality of movement, Verbal HEP, HEP Adherence, and Pain Management with patientverbalized understanding. Post-Treatment Pain Scale: 2 Assessment: Patient had an expected response to treatment. Pt demonstrated moderate difficulty onlyable to locate 3/12 objects with vision occluded in rice. Skilled Intervention demonstrated by modifications of treatment per exercise log including increased rate, assessment of patient's response, and modalities as indicated and safety interventions per exercise log. Progress towards goals as expected. Plan for Next Visit: Treatment Visit with focus on improving functional use of left hand for improved independence with ADL/IADL tasks. RANDELL Gonzalez STATE LICENSE, [id number] documented in this [id number] History of Present illness Narrative* Monica Kellogg OT - 12/13/2022 3:15 PM EDT [facility] OUTPATIENT REHABILITATION DAILY TREATMENT NOTE Today's Date 12/13/2022 Patient Name: Leslie Carcamo Date of : 1950 Current Visit #: 5 Authorized Visits: 199 Case Name: Numbness and tingling in Left hand History: Pre-Treatment Pain Scale: 4 Symptoms: stabilized Functional Diagnosis: 1. Numbness and tingling in left hand Clinical Information: Subjective: Pt reports that she is having more pain in hand today, however, it was worse last nightrating it about an 8/10. Pt reports that she has been compliant with HEP including putty. Pt reports she has a doctor appointment next Saturday for nerve testing. Objective Pt initiated therapy session with L hand in fluidotherapy for 10 minutes to warm tissues prior to clinical exercise. The client completed exercises as listed in tx log. Treatments: Occupational Therapy Exercise Log - 12/13/22 1521 OTHER Precautions/Contraindications 2x/wk for 6 wks Notes 15:15-16 Vitals HEP- edema glove, contrast bath, yellow sponge in the warm water, tendon glides/digit AROM exs Therapeutic Exercise (75231) Intervention Tendon glides and digit AROM exs, PROM this visit to assist in flex of MF Parameters x 5-10 ea Intervention Rice/beans (defer) Parameters Marbles x1 lrd, 4 small Intervention Coordination axs-attempting more practical axs such as donning/doffing earrings, jewelry and dressing boards- opening jars, medicine bottles (defer) Parameters completed practicing dressing board with buttonhook and with hands only Intervention Theraputty Parameters Yellow, x10 beads Intervention Box and blocks (defer) Parameters 15# w/ coban on 1 side, x20 stacking x2, then x10 20# Intervention Clothespins (defer) Parameters Green, vertical to middle Intervention Coordination (defer) Parameters grooved pegs, coins with 5 in palm x2reps Intervention Re-sensitization (defer) Parameters soft to course, pink towel to hard velcro, crumple paper Additional Exercises Add more exercises? Yes Modalities Modalities Fluidotherapy Parameters 10' OT Treatment Times Therex Total Time 33 Modalities Total Time 12 Direct Treatment Time 45 Total Treatment Time 45 Goals: Occupational Therapy Ortho goals: MOBILITY: Patient will demo ability to weight bear or push up from chair using affected UE with No difficulty in 6 weeks. CARRYING/MOVING/HANDLING: Patient will open tight jar using affected UE with No- Minimal difficulty in 6 weeks. CARRYING/MOVING/HANDLING: Patient will be able to carry bags/groceries in affected UE with No-Minimal difficulty in 6 weeks SELF CARE: Patient will perform grooming of hair with No-Minimal difficulty in 6 weeks. IMPAIRMENT: Improve pain from 3-9/10 to 0-1/10 during grasping activities in 6 weeks IMPAIRMENT: Improve AROM of Left Wrist flex/radial deviation/supination from 35/5/45 degrees to 50/15/60 degrees for improved use with ADLs/IADLs in 6 weeks. IMPAIRMENT: Patient will increase left Legal Receptionist average from 10 lbs to at least 25 lbs for improved usewith ADLs/IADLs in 6 weeks. OTHER: Patient will increase FOTO score from 48 to at least 61 to show improved functional outcome in 6 weeks. OTHER: Patient will be able to properly demonstrate independence with HEP in 6 weeks. Patient Education: Quality of movement, Verbal HEP, and Pain Management with patient verbalized understanding. Pt re-educated about re-sensitization techniques from previous session with pt verbalizing understanding. Post-Treatment Pain Scale: 4 Assessment: Patient had an expected response to treatment. Skilled Intervention demonstrated by modifications of treatment per exercise log including increased rate, assessment of patient's response, and modalities as indicated and safety interventions per exercise log. Progress towards goals as expected. Plan for Next Visit: Treatment Visit with focus on pain management and increasing sensation for improved function of L hand to complete grasping and manipulation of items during daily routine. Monica Kellogg OT State License, [id number] documented in this [id number] History of Present illness Narrative* Monica Kellogg OT - 12/11/2022 3:15 PM EDT [facility] OUTPATIENT REHABILITATION DAILY TREATMENT NOTE Today's Date 12/11/2022 Patient Name: Leslie Carcamo Date of : 1950 Current Visit #: 4 Authorized Visits: 199 Case Name: Numbness and tingling in Left hand History: Pre-Treatment Pain Scale: 1 Symptoms: stabilized Functional Diagnosis: No diagnosis found. Clinical Information: Subjective: Pt reports HEP is going okay. Pt believes the edema glove is helping. Pt states numbness and tingling is about the same. Pt states the theraputty is going really well. Pt reports that shegoes next week to see the neurospecialist. Objective Pt initiated therapy session with L hand in fluidotherapy for 10 minutes to warm tissues prior to clinical exercise. The client completed exercises as listed in tx log. Pt received PROM for10 reps at to increase flexion of both DIP/PIP jts then completed AROM of MF with increased flexion. Treatments: Occupational Therapy Exercise Log - 12/11/22 1517 OTHER Precautions/Contraindications 2x/wk for 6 wks Notes 15:15-16 Vitals HEP- edema glove, contrast bath, yellow sponge in the warm water, tendon glides/digit AROM exs Therapeutic Exercise ([id number]) Intervention Tendon glides and digit AROM exs, PROM this visit to assist in flex of MF Parameters x 5-10 ea Intervention Rice/beans Parameters Marbles x1 lrd, 4 small Intervention Coordination axs-attempting more practical axs such as donning/doffing earrings, jewelry and dressing boards- opening jars, medicine bottles (defer) Parameters completed practicing dressing board with buttonhook and with hands only Intervention Theraputty (defer) Parameters Yellow, re-educated for HEP Intervention Box and blocks Parameters 15# w/ coban on 1 side, x20 stacking x2, then x10 20# Intervention Clothespins Parameters Green, vertical to middle Intervention Coordination Parameters grooved pegs, coins with 5 in palm x2reps Intervention Re-sensitization Parameters soft to course, pink towel to hard velcro, crumple paper Additional Exercises Add more exercises? Yes Modalities Modalities Fluidotherapy Parameters 10' OT Treatment Times Therex Total Time 35 Modalities Total Time 10 Direct Treatment Time 45 Total Treatment Time 45 Goals: Occupational Therapy Ortho goals: MOBILITY: Patient will demo ability to weight bear or push up from chair using affected UE with No difficulty in 6 weeks. CARRYING/MOVING/HANDLING: Patient will open tight jar using affected UE with No- Minimal difficulty in 6 weeks. CARRYING/MOVING/HANDLING: Patient will be able to carry bags/groceries in affected UE with No-Minimal difficulty in 6 weeks SELF CARE: Patient will perform grooming of hair with No-Minimal difficulty in 6 weeks. IMPAIRMENT: Improve pain from 3-9/10 to 0-1/10 during grasping activities in 6 weeks IMPAIRMENT: Improve AROM of Left Wrist flex/radial deviation/supination from 35/5/45 degrees to 50/15/60 degrees for improved use with ADLs/IADLs in 6 weeks. IMPAIRMENT: Patient will increase left Legal Receptionist average from 10 lbs to at least 25 lbs for improved usewith ADLs/IADLs in 6 weeks. OTHER: Patient will increase FOTO score from 48 to at least 61 to show improved functional outcome in 6 weeks. OTHER: Patient will be able to properly demonstrate independence with HEP in 6 weeks. Patient Education: Quality of movement, Verbal HEP, and Pain Management with patient demonstrated understanding and verbalized understanding. Pt educated with re-sensitization strategies using soft and coarse textures Post-Treatment Pain Scale: 0 Assessment: Patient had an expected response to treatment. Pt reported a decrease in pain at end ofsession. Skilled Intervention demonstrated by modifications of treatment per exercise log including increased rate, assessment of patient's response, and modalities as indicated and safety interventions per exercise log. Progress towards goals as expected. Plan for Next Visit: Treatment Visit with focus on increasing sensation, mobility, and endurance while decreasing pain in L hand to participate in and complete daily tasks. Monica Kellogg OT State License, [id number] documented in this [id number] History of Present illness Narrative* Monica Kellogg OT - 12/06/2022 2:30 PM EDT [facility] OUTPATIENT REHABILITATION DAILY TREATMENT NOTE Today's Date 12/06/2022 Patient Name: Leslie Carcamo Date of : 1950 Current Visit #: 3 Authorized Visits: 199 Case Name: Numbness and tingling in Left hand History: Pre-Treatment Pain Scale: 2 Symptoms: stabilized Functional Diagnosis: 1. Numbness and tingling in left hand Clinical Information: Subjective: Pt reports that she is feeling alright today. Pt states that she didn't do HEP yesterday as she focused on housework. Objective Pt initiated therapy session with L hand in fluidotherapy for 10 minutes to warm tissues prior to clinical exercise. The client completed exercises as listed in tx log. Treatments: Occupational Therapy Exercise Log - 12/06/22 1443 OTHER Precautions/Contraindications 2x/wk for 6 wks Notes 14:30-15:15 Vitals HEP- edema glove, contrast bath, yellow sponge in the warm water, tendon glides/digit AROM exs Therapeutic Exercise (72529) Intervention Tendon glides and digit AROM exs Parameters x 5-10 ea Intervention Rice/beans (defer) Parameters Marbles x1 lrd, 4 small Intervention Coordination axs-attempting more practical axs such as donning/doffing earrings, jewelry and dressing boards- opening jars, medicine bottles (defer) Parameters completed practicing dressing board with buttonhook and with hands only Intervention Theraputty Parameters Yellow, re-educated for HEP Intervention Box and blocks Parameters 15# w/ coban on 1 side, x20 stacking x2, then x10 20# Intervention Clothespins Parameters Red (hold green) Intervention Coordination (defer) Parameters grooved pegs Additional Exercises Add more exercises? Yes Modalities Modalities Fluidotherapy Parameters 10' OT Treatment Times Therex Total Time 35 Modalities Total Time 10 Direct Treatment Time 45 Total Treatment Time 45 Goals: Occupational Therapy Ortho goals: MOBILITY: Patient will demo ability to weight bear or push up from chair using affected UE with No difficulty in 6 weeks. CARRYING/MOVING/HANDLING: Patient will open tight jar using affected UE with No- Minimal difficulty in 6 weeks. CARRYING/MOVING/HANDLING: Patient will be able to carry bags/groceries in affected UE with No-Minimal difficulty in 6 weeks SELF CARE: Patient will perform grooming of hair with No-Minimal difficulty in 6 weeks. IMPAIRMENT: Improve pain from 3-9/10 to 0-1/10 during grasping activities in 6 weeks IMPAIRMENT: Improve AROM of Left Wrist flex/radial deviation/supination from 35/5/45 degrees to 50/15/60 degrees for improved use with ADLs/IADLs in 6 weeks. IMPAIRMENT: Patient will increase left Legal Receptionist average from 10 lbs to at least 25 lbs for improved usewith ADLs/IADLs in 6 weeks. OTHER: Patient will increase FOTO score from 48 to at least 61 to show improved functional outcome in 6 weeks. OTHER: Patient will be able to properly demonstrate independence with HEP in 6 weeks. Patient Education: Quality of movement, Written HEP, Verbal HEP, Diagnosis and recovery specific education, and Pain Management with patient demonstrated understanding, verbalized understanding, and written information provided . Pt received handout for theraputty exercises and yellow putty and XS edema glove use. Post-Treatment Pain Scale: 0 Assessment: Patient had an expected response to treatment. Pt reported a decrease in pain at end ofsession. Skilled Intervention demonstrated by modifications of treatment per exercise log including increased rate, assessment of patient's response, and modalities as indicated and safety interventions per exercise log. Progress towards goals as expected. Plan for Next Visit: Treatment Visit with focus on increasing mobility and decreasing pain for improved functional use of grasping, carrying, and tasks requiring dexterity for ADL/IADL completion in daily routine. Monica Kellogg OT State License, [id number] documented in this [id number] History of Present illness Narrative* HAMMAD Malloy - 09/24/2022 1:00 PM EDT [facility] OUTPATIENT REHABILITATION DAILY TREATMENT NOTE Today's Date 09/24/2022 Patient Name: Leslie Carcamo Date of : 1950 Current Visit #: 9 Authorized Visits: 199 Case Name: numbness and tingling in L hand History: Pre-Treatment Pain Scale: 2 Symptoms: gradually improved Functional Diagnosis: 1. Numbness and tingling in left hand Clinical Information: Subjective: Pt stating adherence to HEP as instructed with no increased pain. Pt stating that on Saturday her L hand became completely numb and started cramping and hurting, making it difficult to move, and this has not yes gone away. Objective: The client completed exercises as listed in tx log. Pt beginning session with fluidotherapy to warm tissues in preparation for clinical exercises. Treatments: Occupational Therapy Exercise Log - 09/24/22 1302 OTHER Precautions/Contraindications 2x/wk for 6 wks Notes [id number] Vitals HEP- edema glove, contrast bath, yellow sponge in the warm water, tendon glides/digit AROM exs Therapeutic Exercise ([id number]) Intervention Tendon glides and digit AROM exs Parameters x 5-10 ea Intervention Rice/beans Parameters Buttons Intervention Coordination axs-(attempting more practical axs such as donning/doffing earrings, jewelry and dressing boards- opening jars, medicine bottles) Parameters completed practicing dressing board with buttonhook and with hands only Intervention Theraputty Parameters Yellow, instructed for HEP Intervention Box and blocks Parameters 15# w/ coban on 1 side, x20 stacking x2, 20# with yellow spring and coban on both handles x 20 (15# only this session d/t cramping) Intervention Clothespins Parameters Red & green (defer) Intervention Coordination Parameters grooved pegs Additional Exercises Add more exercises? Yes Modalities Modalities Fluidotherapy Parameters 10' OT Treatment Times Therex Total Time 36 Modalities Total Time 10 Direct Treatment Time 46 Total Treatment Time 46 Goals: Occupational Therapy Ortho goals: MOBILITY: Patient will demo ability to weight bear or push up from chair using affected UE with No difficulty in 6 weeks. CARRYING/MOVING/HANDLING: Patient will open tight jar using affected UE with Minimal to no difficulty with use of AE/techs as needed in 6 weeks. SELF CARE: Patient will demo or report improved ability to complete self-care tasks including donning/doffing jewelry, buttoning/fastening clothing, and opening medicine bottles with Minimal to no difficulty and use of AE/techs as needed in 6 weeks. IMPAIRMENT: Improve pain from 5/10 to no more than 1/10 during fisting activities in 6 weeks IMPAIRMENT: Improve HARRISON of Left IF/MF/RF/SF from 210/200/165/175 degrees to at least 230-240 degrees each for improved use with ADLs/IADLs in 6 weeks. IMPAIRMENT: Patient will increase left Legal Receptionist average from 7 lbs to at least 20-25 lbs for improved use with ADLs/IADLs in 6 weeks. OTHER: Patient will increase FOTO score from 50 to at least 67 to show improved functional outcome in 6 weeks. OTHER: Patient will be able to properly demonstrate independence with HEP in 6 weeks. OTHER: Pt will demonstrate ability to perform 9 hole peg test in 45-50 seconds to demonstrate improved coordination for improved functional use of L hand for FM coordination skills as associated withdressing and cooking tasks. Patient Education: Quality of movement, Verbal HEP, and Pain Management with patient verbalized understanding. Post-Treatment Pain Scale: 2 Assessment: Patient had an expected response to treatment. Pt tolerating all exercises well with noincreased pain. Skilled Intervention demonstrated by modifications of treatment per exercise log including increased rate, increased intensity, increased mobility, assessment of patient's response, and modalities asindicated and safety interventions per exercise log. Progress towards goals as expected. Plan for Next Visit: Treatment Visit with focus on decreasing N/T and pain and increasing functional use of L hand for improved functional use for all ADL/IADL tasks. Chrissy Kuhn, HAMMAD State License, [id number] documented in this [id number] History of Present illness Narrative* Rose Foote OT - 09/21/2022 1:00 PM EDT [facility] OUTPATIENT REHABILITATION DAILY TREATMENT NOTE Today's Date 09/21/2022 Patient Name: Leslie Carcamo Date of : 1950 Current Visit #: 8 Authorized Visits: 199 Case Name: numbness and tingling in L hand History: Pre-Treatment Pain Scale: 2 Symptoms: stabilized Functional Diagnosis: No diagnosis found. Clinical Information: Subjective: Pt arrived for therapy session reporting not much change in her L hand. Pt continues with N/T in L hand fingertips. Pt states it is also painful at times. It's not consistent. Objective: Pt received fluidotherapy to initiate her therapy session. Pt completed ex prog as per ex log. Pt was educated in de-sensitization techniques and handout provided for HEP. Treatments: Occupational Therapy Exercise Log - 09/21/22 1318 OTHER Precautions/Contraindications 2x/wk for 6 wks Notes 13:03:13:48 Vitals HEP- edema glove, contrast bath, yellow sponge in the warm water, tendon glides/digit AROM exs Therapeutic Exercise ([id number]) Intervention Tendon glides and digit AROM exs Parameters x 5-10 ea Intervention Rice/beans Parameters Buttons Intervention Coordination axs-(attempting more practical axs such as donning/doffing earrings, jewelry and dressing boards- opening jars, medicine bottles) Parameters completed practicing dressing board with buttonhook and with hands only Intervention Theraputty Parameters Yellow, instructed for HEP Intervention Box and blocks Parameters 15# w/ coban on 1 side, x20 stacking x2, 20# with yellow spring and coban on both handles x 20 Intervention Clothespins Parameters Red & green (defer) Intervention Coordination Parameters grooved pegs Additional Exercises Add more exercises? Yes Modalities Modalities Fluidotherapy Parameters 10' OT Treatment Times Therex Total Time 20 Functional Activity Total Time 15 Modalities Total Time 10 Direct Treatment Time 45 Total Treatment Time 45 Goals: Occupational Therapy Ortho goals: MOBILITY: Patient will demo ability to weight bear or push up from chair using affected UE with No difficulty in 6 weeks. CARRYING/MOVING/HANDLING: Patient will open tight jar using affected UE with Minimal to no difficulty with use of AE/techs as needed in 6 weeks. SELF CARE: Patient will demo or report improved ability to complete self-care tasks including donning/doffing jewelry, buttoning/fastening clothing, and opening medicine bottles with Minimal to no difficulty and use of AE/techs as needed in 6 weeks. IMPAIRMENT: Improve pain from 5/10 to no more than 1/10 during fisting activities in 6 weeks IMPAIRMENT: Improve HARRISON of Left IF/MF/RF/SF from 210/200/165/175 degrees to at least 230-240 degrees each for improved use with ADLs/IADLs in 6 weeks. IMPAIRMENT: Patient will increase left Legal Receptionist average from 7 lbs to at least 20-25 lbs for improved use with ADLs/IADLs in 6 weeks. OTHER: Patient will increase FOTO score from 50 to at least 67 to show improved functional outcome in 6 weeks. OTHER: Patient will be able to properly demonstrate independence with HEP in 6 weeks. OTHER: Pt will demonstrate ability to perform 9 hole peg test in 45-50 seconds to demonstrate improved coordination for improved functional use of L hand for FM coordination skills as associated withdressing and cooking tasks. Patient Education: Quality of movement, Written HEP, Verbal HEP, HEP Adherence, Diagnosis and recovery specific education, and Adaptive/Assistive equipment with patient demonstrated understanding, verbalized understanding, and written information provided . Post-Treatment Pain Scale: 0 Assessment: Patient had an expected response to treatment. Therapist encouraged pt to use de-sensitization techniques at home for attempted return of discrimination and sensation to L hand digits. Skilled Intervention demonstrated by modifications of treatment per exercise log including increased load, increased intensity, assessment of patient's response, and modalities as indicated and safety interventions per exercise log. Progress towards goals as expected. Plan for Next Visit: Treatment Visit with focus on decreasing N/T and pain and increasing functional use of L hand for improved functional use for all ADL/IADL tasks. Rose Foote OT STATE LICENSE, [id number] documented in this [id number] History of Present illness Narrative* HAMMAD Malloy - 09/13/2022 1:45 PM EDT [facility] DAILY TREATMENT NOTE Today's Date 09/13/2022 Patient Name: Leslie Carcamo Date of : 1950 Current Visit #: 6 Authorized Visits: 199 Case Name: No linked episodes History: Pre-Treatment Pain Scale: 0 Symptoms: gradually improved Functional Diagnosis: 1. Numbness and tingling in left hand Clinical Information: Subjective: Pt stating adherence to HEP as instructed with no increased pain. Pt stating that she feels her numbness has gotten a little better, but that she hasn't made any big improvements. Objective: The client completed exercises as listed in tx log. Pt beginning session with fluidotherapy to warm tissues in preparation for clinical exercises. Treatments: Occupational Therapy Exercise Log - 09/13/22 1346 OTHER Precautions/Contraindications 2x/wk for 6 wks Notes [id number] Vitals HEP- edema glove, contrast bath, yellow sponge in the warm water, tendon glides/digit AROM exs Therapeutic Exercise (06830) Intervention Tendon glides and digit AROM exs Parameters x 5-10 ea Intervention Rice/beans Parameters Buttons Intervention Coordination axs-(attempting more practical axs such as donning/doffing earrings, jewelry and dressing boards- opening jars, medicine bottles) Parameters Practicing dressing board and opening jars (dycem provided) Intervention Theraputty Parameters Yellow, instructed for HEP Intervention Box and blocks Parameters 15# w/ coban on 1 side, x20 stacking x2, attempted 24# but unable Intervention Clothespins Parameters Red & green Additional Exercises Add more exercises? Yes Modalities Modalities Fluidotherapy Parameters 10' OT Treatment Times Therex Total Time 30 Modalities Total Time 10 Direct Treatment Time 40 Total Treatment Time 40 Goals: Occupational Therapy Ortho goals: No data was found Patient Education: Quality of movement and Verbal HEP with patient verbalized understanding. Post-Treatment Pain Scale: 0 Assessment: Patient had an expected response to treatment. Pt tolerating all exercises well with noincreased pain. Skilled Intervention demonstrated by modifications of treatment per exercise log including increased rate, increased intensity, increased mobility, assessment of patient's response, and modalities asindicated and safety interventions per exercise log. Progress towards goals as expected. Plan for Next Visit: Treatment Visit with focus on decreasing numbness/tingling for improved functional use of L hand for daily tasks. HAMMAD Malloy State License, [id number] documented in this [id number] History of Present illness Narrative* GEETA Gonzalez/Rebeca - 09/10/2022 1:00 PM EDT [facility] DAILY TREATMENT NOTE Today's Date 09/10/2022 Patient Name: Leslie Carcamo Date of : 1950 Current Visit #: 5 Authorized Visits: 199 Case Name: numbness and tingling in L hand History: Pre-Treatment Pain Scale: 1 Symptoms: stabilized Functional Diagnosis: 1. Numbness and tingling in left hand [R20.0, R20.2 (ICD-10-CM)] Clinical Information: Subjective: Pt feels that numbness/tingling has improved some since initial evaluation. Pt reports compliance with HEP. Objective Pt received fluidotherapy to warm tissue in L hand to initiate therapy. Pt completed exercises as listed on tx log below. Pt provided with education on utilizing dycem on medication bottlesto improve independence with medication management, pt also instructed to ask pharmacy for non-childproof bottles. Therapist provided pt information regarding larger earring backs and necklace claspsto improve ease with wearing jewelry, pt plans to look into it. Treatments: Occupational Therapy Exercise Log - 09/10/22 1304 OTHER Precautions/Contraindications 2x/wk for 6 wks Notes 15:04-15:44 Vitals HEP- edema glove, contrast bath, yellow sponge in the warm water, tendon glides/digit AROM exs Therapeutic Exercise (22248) Intervention Tendon glides and digit AROM exs Parameters x 5-10 ea Intervention Rice/beans (defer) Parameters Buttons Intervention Coordination axs-(attempting more practical axs such as donning/doffing earrings, jewelry and dressing boards- opening jars, medicine bottles) Parameters Practicing dressing board and opening jars (dycem provided) Intervention Theraputty Parameters Yellow, instructed for HEP Intervention Box and blocks Parameters 15# w/ coban on 1 side, x20 stacking x2 Intervention Clothespins Parameters Red & green Additional Exercises Add more exercises? Yes Modalities Modalities Fluidotherapy Parameters 10' OT Treatment Times Therex Total Time 30 Modalities Total Time 10 Direct Treatment Time 40 Total Treatment Time 40 Goals: Occupational Therapy Ortho goals: MOBILITY: Patient will demo ability to weight bear or push up from chair using affected UE with No difficulty in 6 weeks. CARRYING/MOVING/HANDLING: Patient will open tight jar using affected UE with Minimal to no difficulty with use of AE/techs as needed in 6 weeks. SELF CARE: Patient will demo or report improved ability to complete self-care tasks including donning/doffing jewelry, buttoning/fastening clothing, and opening medicine bottles with Minimal to no difficulty and use of AE/techs as needed in 6 weeks. IMPAIRMENT: Improve pain from 5/10 to no more than 1/10 during fisting activities in 6 weeks IMPAIRMENT: Improve HARRISON of Left IF/MF/RF/SF from 210/200/165/175 degrees to at least 230-240 degrees each for improved use with ADLs/IADLs in 6 weeks. IMPAIRMENT: Patient will increase left Legal Receptionist average from 7 lbs to at least 20-25 lbs for improved use with ADLs/IADLs in 6 weeks. OTHER: Patient will increase FOTO score from 50 to at least 67 to show improved functional outcome in 6 weeks. OTHER: Patient will be able to properly demonstrate independence with HEP in 6 weeks. OTHER: Pt will demonstrate ability to perform 9 hole peg test in 45-50 seconds to demonstrate improved coordination for improved functional use of L hand for FM coordination skills as associated withdressing and cooking tasks. Patient Education: Quality of movement, Verbal HEP, HEP Adherence, and Pain Management with patientverbalized understanding. Post-Treatment Pain Scale: 0 Assessment: Patient had an expected response to treatment. Pt was able to take off earring, although unable to place back on d/t decreased coordination and numbness/tingling. Skilled Intervention demonstrated by modifications of treatment per exercise log including increased rate, assessment of patient's response, and modalities as indicated and safety interventions per exercise log. Progress towards goals as expected. Plan for Next Visit: Treatment Visit with focus on decreasing numbness/tingling for improved functional use of L hand for daily tasks. GEETA Gonzalez/Rebeca STATE LICENSE, [id number] documented in this [id number] History of Present illness Narrative* Chrissy Kuhn, HAMMAD - 09/06/2022 3:15 PM EDT [facility] DAILY TREATMENT NOTE Today's Date 09/06/2022 Patient Name: Leslie Carcamo Date of : 1950 Current Visit #: 4 Authorized Visits: 199 Case Name: numbness and tingling in L hand History: Pre-Treatment Pain Scale: 0 Symptoms: gradually improved Functional Diagnosis: 1. Numbness and tingling in left hand Clinical Information: Subjective: Pt stating adherence to HEP as instructed with no increased pain. Pt stating that she has been having some tingling in her fingertips that she did not have before beginning therapy. Objective: The client completed exercises as listed in tx log. Pt beginning session with fluidotherapy to warm tissues in preparation for clinical exercises. Treatments: Occupational Therapy Exercise Log - 09/06/22 1513 OTHER Precautions/Contraindications 2x/wk for 6 wks Notes [id number] Vitals HEP- edema glove, contrast bath, yellow sponge in the warm water, tendon glides/digit AROM exs Therapeutic Exercise (76254) Intervention Tendon glides and digit AROM exs Parameters x 5-10 ea Intervention Rice/beans Parameters Buttons Intervention Coordination axs-(attempting more practical axs such as donning/doffing earrings, jewelry and dressing boards- opening jars, medicine bottles) Parameters Practicing dressing board and opening jars (dycem provided) Intervention Theraputty Parameters Yellow, instructed for HEP Intervention Box and blocks Parameters 15# w/ coban on 1 side, x20 stacking x2 Intervention Clothespins Parameters Red & green Additional Exercises Add more exercises? Yes Modalities Modalities Fluidotherapy Parameters 10' OT Treatment Times Therex Total Time 32 Modalities Total Time 10 Direct Treatment Time 42 Total Treatment Time 42 Goals: Occupational Therapy Ortho goals: MOBILITY: Patient will demo ability to weight bear or push up from chair using affected UE with No difficulty in 6 weeks. CARRYING/MOVING/HANDLING: Patient will open tight jar using affected UE with Minimal to no difficulty with use of AE/techs as needed in 6 weeks. SELF CARE: Patient will demo or report improved ability to complete self-care tasks including donning/doffing jewelry, buttoning/fastening clothing, and opening medicine bottles with Minimal to no difficulty and use of AE/techs as needed in 6 weeks. IMPAIRMENT: Improve pain from 5/10 to no more than 1/10 during fisting activities in 6 weeks IMPAIRMENT: Improve HARRISON of Left IF/MF/RF/SF from 210/200/165/175 degrees to at least 230-240 degrees each for improved use with ADLs/IADLs in 6 weeks. IMPAIRMENT: Patient will increase left Legal Receptionist average from 7 lbs to at least 20-25 lbs for improved use with ADLs/IADLs in 6 weeks. OTHER: Patient will increase FOTO score from 50 to at least 67 to show improved functional outcome in 6 weeks. OTHER: Patient will be able to properly demonstrate independence with HEP in 6 weeks. OTHER: Pt will demonstrate ability to perform 9 hole peg test in 45-50 seconds to demonstrate improved coordination for improved functional use of L hand for FM coordination skills as associated withdressing and cooking tasks. Patient Education: Quality of movement and Verbal HEP with patient verbalized understanding. Post-Treatment Pain Scale: 0 Assessment: Patient had an expected response to treatment. Pt tolerating all exercises well with noincreased pain. Skilled Intervention demonstrated by modifications of treatment per exercise log including increased load, increased rate, increased intensity, increased mobility, assessment of patient's response, and modalities as indicated and safety interventions per exercise log. Progress towards goals as expected. Plan for Next Visit: Treatment Visit with focus on decreasing numbness/tingling in L hand and improving strength and endurance for functional use in all daily activities. HAMMAD Malloy State License, [id number] documented in this [id number] History of Present illness Narrative* HAMMAD Malloy - 09/04/2022 4:00 PM EDT [facility] DAILY TREATMENT NOTE Today's Date 09/04/2022 Patient Name: Leslie Carcamo Date of : 1950 Current Visit #: 3 Authorized Visits: 199 Case Name: numbness and tingling in L hand History: Pre-Treatment Pain Scale: 2 Symptoms: gradually improved Functional Diagnosis: 1. Numbness and tingling in left hand Clinical Information: Subjective: Pt stating adherence to HEP as instructed with no increased pain. Pt stating that she did not notice any difference or pain after her last session. Objective: The client completed exercises as listed in tx log. Pt beginning session with fluidotherapy to warm tissues in preparation for clinical exercises. Pt introduced to box & blocks activity this date. Treatments: Occupational Therapy Exercise Log - 09/04/22 1559 OTHER Precautions/Contraindications 2x/wk for 6 wks Notes [id number] Vitals HEP- edema glove, contrast bath, yellow sponge in the warm water, tendon glides/digit AROM exs Therapeutic Exercise ([id number]) Intervention Tendon glides and digit AROM exs Parameters x 5-10 ea Intervention Rice/beans Parameters Buttons Intervention Coordination axs-(attempting more practical axs such as donning/doffing earrings, jewelry and dressing boards- opening jars, medicine bottles) Parameters Practicing dressing board and opening jars (dycem provided) Intervention Theraputty Parameters Yellow, instructed for HEP Intervention Box and blocks Parameters 15# w/ coban on 1 side, x20 stacking x2 Intervention clothespins Parameters Red & green Additional Exercises Add more exercises? Yes Modalities Modalities Fluidotherapy Parameters 10' OT Treatment Times Therex Total Time 35 Modalities Total Time 10 Direct Treatment Time 45 Total Treatment Time 45 Goals: Occupational Therapy Ortho goals: MOBILITY: Patient will demo ability to weight bear or push up from chair using affected UE with No difficulty in 6 weeks. CARRYING/MOVING/HANDLING: Patient will open tight jar using affected UE with Minimal to no difficulty with use of AE/techs as needed in 6 weeks. SELF CARE: Patient will demo or report improved ability to complete self-care tasks including donning/doffing jewelry, buttoning/fastening clothing, and opening medicine bottles with Minimal to no difficulty and use of AE/techs as needed in 6 weeks. IMPAIRMENT: Improve pain from 5/10 to no more than 1/10 during fisting activities in 6 weeks IMPAIRMENT: Improve HARRISON of Left IF/MF/RF/SF from 210/200/165/175 degrees to at least 230-240 degrees each for improved use with ADLs/IADLs in 6 weeks. IMPAIRMENT: Patient will increase left Legal Receptionist average from 7 lbs to at least 20-25 lbs for improved use with ADLs/IADLs in 6 weeks. OTHER: Patient will increase FOTO score from 50 to at least 67 to show improved functional outcome in 6 weeks. OTHER: Patient will be able to properly demonstrate independence with HEP in 6 weeks. OTHER: Pt will demonstrate ability to perform 9 hole peg test in 45-50 seconds to demonstrate improved coordination for improved functional use of L hand for FM coordination skills as associated withdressing and cooking tasks. Patient Education: Quality of movement, Verbal HEP, and Pain Management with patient verbalized understanding. Post-Treatment Pain Scale: 2 Assessment: Patient had an expected response to treatment. Pt tolerating all exercises well with noincreased pain. Skilled Intervention demonstrated by modifications of treatment per exercise log including increased load, increased rate, increased intensity, increased mobility, assessment of patient's response, and modalities as indicated and safety interventions per exercise log. Progress towards goals as expected. Plan for Next Visit: Treatment Visit with focus on decreasing numbness/tingling in L hand and improving strength and endurance for functional use in all daily activities. HAMMAD Malloy State License, [id number] documented in this [id number] History of Present illness Narrative* HAMMAD Malloy - 08/30/2022 1:45 PM EDT [facility] DAILY TREATMENT NOTE Today's Date 08/30/2022 Patient Name: Leslie Carcamo Date of : 1950 Current Visit #: 2 Authorized Visits: 199 Case Name: numbness and tingling in L hand History: Pre-Treatment Pain Scale: 0 Symptoms: gradually improved Functional Diagnosis: 1. S/P arteriovenous (AV) fistula creation 2. Numbness and tingling in left hand Clinical Information: Subjective: Pt stating adherence to HEP as instructed with no increased pain and has no questions regarding this. Objective: The client completed exercises as listed in tx log. Pt beginning session with fluidotherapy to warm tissues in preparation for clinical exercises. Pt introduced to rice and beans, clothespins, and theraputty activities this session. Treatments: Occupational Therapy Exercise Log - 08/30/22 1348 OTHER Precautions/Contraindications 2x/wk for 6 wks Notes [id number] Vitals HEP- edema glove, contrast bath, yellow sponge in the warm water, tendon glides/digit AROM exs Therapeutic Exercise (04898) Intervention Tendon glides and digit AROM exs Parameters x 5-10 ea Intervention Rice/beans Parameters Buttons Intervention Coordination axs-(attempting more practical axs such as donning/doffing earrings, jewelry and dressing boards- opening jars, medicine bottles) Parameters (defer d/t time) Intervention Theraputty Parameters Yellow Intervention Box and blocks (defer) Intervention clothes pins Parameters Red & green Additional Exercises Add more exercises? Yes Modalities Modalities Fluidotherapy Parameters 10' OT Treatment Times Therex Total Time 32 Modalities Total Time 10 Direct Treatment Time 42 Total Treatment Time 42 Goals: Occupational Therapy Ortho goals: MOBILITY: Patient will demo ability to weight bear or push up from chair using affected UE with No difficulty in 6 weeks. CARRYING/MOVING/HANDLING: Patient will open tight jar using affected UE with Minimal to no difficulty with use of AE/techs as needed in 6 weeks. SELF CARE: Patient will demo or report improved ability to complete self-care tasks including donning/doffing jewelry, buttoning/fastening clothing, and opening medicine bottles with Minimal to no difficulty and use of AE/techs as needed in 6 weeks. IMPAIRMENT: Improve pain from 5/10 to no more than 1/10 during fisting activities in 6 weeks IMPAIRMENT: Improve HARRISON of Left IF/MF/RF/SF from 210/200/165/175 degrees to at least 230-240 degrees each for improved use with ADLs/IADLs in 6 weeks. IMPAIRMENT: Patient will increase left Legal Receptionist average from 7 lbs to at least 20-25 lbs for improved use with ADLs/IADLs in 6 weeks. OTHER: Patient will increase FOTO score from 50 to at least 67 to show improved functional outcome in 6 weeks. OTHER: Patient will be able to properly demonstrate independence with HEP in 6 weeks. OTHER: Pt will demonstrate ability to perform 9 hole peg test in 45-50 seconds to demonstrate improved coordination for improved functional use of L hand for FM coordination skills as associated withdressing and cooking tasks. Patient Education: Quality of movement and Verbal HEP with patient verbalized understanding. Post-Treatment Pain Scale: 0 Assessment: Patient had an expected response to treatment. Pt tolerating all exercises well with noincreased pain. Skilled Intervention demonstrated by modifications of treatment per exercise log including increased intensity, increased mobility, assessment of patient's response, and modalities as indicated and safety interventions per exercise log. Progress towards goals as expected. Plan for Next Visit: Treatment Visit with focus on decreasing numbness/tingling in L hand and improving strength and endurance for functional use in all daily activities. HAMMAD Malloy State License, [id number] documented in this [id number] History of Present illness Narrative* Rose Foote, OT - 08/28/2022 3:15 PM EDT [facility] Evaluation Today's Date 08/28/2022 Patient Name: Leslie Carcamo Date of : 1950 Case Name: numbness and tingling in L hand Functional Diagnosis: No diagnosis found. Clinical Information: Subjective All subjective data collected as part of a multidisciplinary team: Yes Referring Diagnosis: Numbness and tingling in L hand s/p arteriovenous fistula creation Follow Up With Physician: 6 months. Patient accompanied by: unaccompanied History of Present Illness Date of Onset: May. Surgery Date: 05/16/2022 Days Post-Op: 104 Subjective History: Pt arrived for IE of the L hand. Pt reports she is having numbness and tinglingin the L hand that has been ongoing following a surgery in May to place an arteriovenous fistula. Pt has been having difficulty with numbness, tightness, cramping, and feeling of cold in the L hand since. Pt reports her L hand feels cold a lot of the time. Pt is having difficulty with FM coordination skills as she can't put her earrings in, she is having difficulty hooking her necklaces, and hooking her bra. Pt has ESRF and has dialysis treatments on Mondays and Fridays. Pt did have a CT scan of the L upper extremity on 06/05/22. The results of the CT scan state the following: FINDINGS: No acute bone or joint abnormality is seen. There appear to be mild degenerative changes of the acromioclavicular joint and glenohumeral joint with small marginal osteophytes. There is a dialysis loop graft within the soft tissues of the anterior aspect of the upper arm. There appears to be opacification of this graft with contrast. Along the lateral aspect of the upper arm at the level of the proximal humeral diaphysis within the lateral aspect of the distal deltoid muscle and extending into the adjacent subcutaneous fat laterally there is an ovoid, partially encapsulated fat-signal intensity focus. This measures approximately 3.4 x 4.5 x 6.5 cm in AP, transverse and craniocaudal dimension respectively. No abnormal enhancement is identified in this region. IMPRESSION: 1. 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 2. A dialysis loop graft in the upper extremity appears grossly patent. PMH includes arthritis, CA, DM, HBP, ESRF, and urination problems. Previous Treatment for this condition: No Previous Imaging: Ultrasound, CT and X-ray Hand dominance: right Overall rating of health: Fair Pain Scale Pain location: hand Average Pain: 2/10 Pain at highest: 5/10 (Pt states she feels like a restriction in her L hand, like the blood isn'table to flow into her hand.) Aggravating factors: making a fist, it feels tight Easing factors: compression and heat Personal Goals: To regain the use of my hand. Social Support: Patient lives alone. Additional Social Support: Lives alone Church, social, or cultural considerations to be made aware of before starting treatment: No Red Flags: history of cancer Comments: Pt has dialysis 2 days a week- M and F Barriers to Care: None Fall risk screening Fallen 2 or more times in the last 12 months: No Injured as a result of a fall in the last 12 months: No Church, social, or cultural considerations to be made aware of before starting treatment: No Wrist/Hand Right Wrist/Hand Hand Certified Recreational Therapist Legal Receptionist Average: 35 #1: 35 Lateral Pinch Average: 9.5 #1: 9.5 3 Jaw Agusto Average: 9 #1: 9 9 Hole Pe Edema Circumference DPC: 19.5 Left Wrist/Hand Range of Motion: Fingertip to DPC IF: 2.8 MF: 2.8 RF: 3.7 SF: 3.0 Hand AROM MCP PIP DIP HARRISON Thumb 55 55 110 Index 75 90 45 210 Middle 65 90 45 200 Ring 60 90 15 165 Small 50 -5/90 40 175 Hand Certified Recreational Therapist Legal Receptionist Average: 7 #1: 7 Lateral Pinch Average: 4 #1: 4 3 Jaw Agusto Average: 2 #1: 2 9 Hole Pe Edema Circumference DPC: 19.0 Additional Findings: Pt reports her L hand feels cold a lot of the time. Treatments: Occupational Therapy Exercise Log - 08/28/22 1748 OTHER Precautions/Contraindications 2x/wk for 6 wks Vitals HEP- edema glove, contrast bath, yellow sponge in the warm water, tendon glides/digit AROM exs Therapeutic Exercise (67982) Intervention Tendon glides and digit AROM exs Parameters x 5-10 ea Intervention Rice/beans Intervention Coordination axs-(attempting more practical axs such as donning/doffing earrings, jewelry and dressing boards- opening jars, medicine bottles) Intervention Theraputty Parameters light strengthening Intervention Box and blocks Intervention clothes pins Additional Exercises Add more exercises? Yes Modalities Modalities Fluidotherapy Parameters 10' Treatment Plan: Frequency of Visits: twice per week Duration: 6 weeks Interventions: Therapeutic Exercise (30432), Neuromuscular Re-Education (25967), Manual Therapy (79668), Therapeutic/ Functional Activities (36373), Self Care (17003), Paraffin Bath (13776), and Fluidotherapy Rehab Potential: good Goals: Occupational Therapy Ortho goals: MOBILITY: Patient will demo ability to weight bear or push up from chair using affected UE with No difficulty in 6 weeks. CARRYING/MOVING/HANDLING: Patient will open tight jar using affected UE with Minimal to no difficulty with use of AE/techs as needed in 6 weeks. SELF CARE: Patient will demo or report improved ability to complete self-care tasks including donning/doffing jewelry, buttoning/fastening clothing, and opening medicine bottles with Minimal to no difficulty and use of AE/techs as needed in 6 weeks. IMPAIRMENT: Improve pain from 5/10 to no more than 1/10 during fisting activities in 6 weeks IMPAIRMENT: Improve HARRISON of Left IF/MF/RF/SF from 210/200/165/175 degrees to at least 230-240 degrees each for improved use with ADLs/IADLs in 6 weeks. IMPAIRMENT: Patient will increase left Legal Receptionist average from 7 lbs to at least 20-25 lbs for improved use with ADLs/IADLs in 6 weeks. OTHER: Patient will increase FOTO score from 50 to at least 67 to show improved functional outcome in 6 weeks. OTHER: Patient will be able to properly demonstrate independence with HEP in 6 weeks. OTHER: Pt will demonstrate ability to perform 9 hole peg test in 45-50 seconds to demonstrate improved coordination for improved functional use of L hand for FM coordination skills as associated withdressing and cooking tasks. Patient Education provided: Provided education on hand anatomy related to symptoms via visual chart. Issued visual HEP with use of edema glove and contrast bath for edema management and improved blood flow, use of yellow sponge in the warm water, and tendon glides/digit AROM exs. Instructed client to use heat prior to exercises to improve tissue extensibility prior to stretches. Clinical Impression: Pt is a 71 y.o female who presents to outpatient OT services with c/o L hand numbness, weakness, and lack of functional use for all ADL/IADL functions. Upon assessment, pt has been found with the following impairments: decreased AROM, decreased pumper helper and prehension strength, decreased coordination, increased numbness, and increased pain. The documented impairments result in the following functional limitations: difficulty completing ADLs/IADLs suchas dressing/grooming/hygiene, gripping and holding items, decreased quality of life and limited performance of household related duties, and increased numbness and pain. PMH includes arthritis, hx/o CA, DM, HBP, ESRF, and urination problems. The pt would benefit from skilled OT services focused on the above listed impairments and limitations in order to safely progress pt to their desired level of function. This is a moderate complexity evaluation. Pt to be discharged from OP OT services if/when goals are met, if they fail to make progress with conservative management in OT, if their level of progress plateaus, or if they do not maintain compliance with attendance or HEP. At this time, it is my clinical judgment that services are medically necessary This co-signature is to electronically certify that the above named patient, who is under my care, requires skilled therapy services as described in the above treatment plan. I further certify that the services outlined in this plan are skilled and medically necessary. I have reviewed this plan of care for rehabilitation services and recommend that these services continue from 08/28/2022 to 10/29/2022. Rose Foote OT STATE LICENSE, [id number] documented in this [id number] History of Present illness Narrative* Yan Campbell MD - 08/17/2022 3:06 PM EDT Assessment 71 yo F with LUE brachioaxillary AVG which required venous outflow cutting angioplasty after which she has developed numbness of the left hand. While overall the trajectory of her symptoms is improved, she has ongoing difficulty using her fingertips for fine motor tasks - earrings, opening bottle tops, etc. She also still has some discomfortin the palm of her hand which waxes and wanes. She actually has a palpable pulse at the radial artery, which would suggest to me she has developed compensatory hyperemia in her upper extremity bloodflow. While overall a positive, this does mean that a bypass/proximalization of inlow is unlikely to help her in my opinion. This is likely a sequelae of hypoperfusion in combination with her incomplete palmar arch. I discussed with Leslie options - continuing with her current access vs ligation with evaluation ofthe right arm for access creation (would likely need basilic vein vs graft in right arm based on previous vein mapping) or line-dependent dialysis. She at this time elected to continue with her current access with ongoing evaluation for if she desires its ligation/removal. She did inquire about a physical therapy referral for left hand strengthening/improvement in fine motor, which is a reasonable request. -Clinical follow-up in 6 mos -Referral to PT Subjective 71 yo F with LUE brachioaxillary AVG which required venous outflow cutting angioplasty after which she has developed numbness of the left hand. She has been successfully using the graft for dialysis. Tunneled line is still in place. Her left hand symptoms have overall improved, but she does admit that she is still having trouble with fine motor tasks involving her fingers, and she has left palm discomfort that waxes and wanes. Past Medical History: Diagnosis Date Anemia Chronic kidney disease (CKD) only one and 1/2 kidney Chronic kidney disease (CKD), active medical management without dialysis, stage 5 (HCC) Diabetes mellitus, type 2 (HCC) Dialysis patient (HCC) Diverticulosis 10/2021 Fibroid Glaucoma Gout H. pylori infection 10/2021 History of stress test 2016 screening and patient reports was normal Hyperlipidemia Hypertension Renal cell carcinoma (HCC) 02/06/2018 Right papillary renal cell carcinoma pT1a, pNX (stage I) s/p right nephrectomy Past Surgical History: Procedure Laterality Date COLONOSCOPY N/A 10/18/2021 Procedure: COLONOSCOPY with polypectomy; Surgeon: Chris Stovall MD; [place] [facility] Service: Gastroenterology CV IR INTERVENTIONAL RADIOLOGY N/A 11/14/2021 Procedure: IR DIALYSIS CATHETER INSERTION TUNNELED; Surgeon: Gerhard Walker MD; Location: IR LAB; Service: Interventional Radiology CV IR INTERVENTIONAL RADIOLOGY N/A 06/19/2022 Procedure: VR Fistulagram w/Intervention; Surgeon: Yan Campbell MD; Location: IR LAB; Service: Interventional Radiology EGD N/A 10/18/2021 Procedure: ESOPHAGOGASTRODUODENOSCOPY with biopsy and polypectomy; Surgeon: Chris Stovall MD; [place] [facility]; Service: Gastroenterology fatty tumor removed fibroid removed uterine FISTULA ARTERIOVENOUS Left 04/23/2022 Procedure: Attempted LEFT BRACHIOBASILIC FISTULA CREATION; Surgeon: Yan Campbell MD; Location: Main OR; Service: Gen-Vascular FISTULA ARTERIOVENOUS Left 05/16/2022 Procedure: LEFT UPPER EXTREMITY ARTERIOVENOUS Graft with Propaten PTFE GRAFT INSERTION; Surgeon: Yan Campbell MD; Location: Main OR; Service: Gen-Vascular HERNIA REPAIR HYSTERECTOMY NEPHRECTOMY PARTIAL ROBOTIC XI STAGE 2 Right 03/26/2018 Procedure: RIGHT ROBOTIC ASSISTED LAPAROSCOPIC PARTIAL NEPHRECTOMY LEVEL 2; Surgeon: Nasim Gaspar MD; Location: [facility] Main OR; Service: Urology Current Outpatient Medications Medication Sig Dispense Refill Accu-Chek Guide Glucose Meter Misc USE TEST BLOOD SUGAR 3 TIMES A DAY allopurinoL (ZYLOPRIM) 100 MG tablet Take 1.5 (one and a half) tablets (150 mg total) by mouth daily . amLODIPine (NORVASC) 10 MG tablet Take 1 (one) tablet (10 mg total) by mouth daily AM . aspirin 81 mg chewable tablet Chew and Swallow 1 (one) tablet (81 mg total) daily AM . atorvastatin (LIPITOR) 40 MG tablet Take 1 (one) tablet (40 mg total) by mouth every morning Reasons: high cholesterol. (Patient taking differently: Take 1 (one) tablet (40 mg total) by mouth Twice aweek AM Reasons: high cholesterol.) 90 tablet 3 carvediloL (COREG) 25 MG tablet Take 1 (one) tablet (25 mg total) by mouth 2 (two) times a day withmeals . 120 tablet 0 cloNIDine HCL (CATAPRES) 0.1 MG tablet Take 1 (one) tablet (0.1 mg total) by mouth 2 (two) times a day . dorzolamide-timoloL (COSOPT) 22.3-6.8 mg/mL ophthalmic solution Administer 1 (one) drop to both eyes 2 (two) times a day . dulaglutide (Trulicity) 1.5 mg/0.5 mL Pen Inject 0.5 mL (1.5 mg total) under the skin once a week . FreeStyle Lite Strips strips TEST 3 TIMES DAILY DIRECTED 200 strip 2 furosemide (LASIX) 40 MG tablet 1 tab and 2 tab alternate days . (Patient taking differently: Take 1 (one) tablet (40 mg total) by mouth daily .) 60 tablet 11 hydrALAZINE (APRESOLINE) 50 MG tablet Take 1 (one) tablet (50 mg total) by mouth 2 (two) times a day . insulin degludec (Tresiba FlexTouch U-200) 200 unit/mL (3 mL) InPn Inject 10 (ten) Units under the skin nightly . (Patient taking differently: Inject 10 (ten) Units under the skin nightly PRN .) 4.5 mL 0 predniSONE (DELTASONE) 20 MG tablet PRN . Velphoro 500 mg Chew CRUSH OR CHEW AND SWALLOW 1 TABLET 3 TIMES A DAY WITH MEALS Vitamin D2 1,250 mcg (50,000 unit) capsule TAKE 1 CAPSULE BY MOUTH ONCE PER WEEK (WEEKLY) FOR 10 WEEKS THEN START MONTHLY DOSES No current facility-administered medications for this visit. Family History Problem Relation Age of Onset Hypertension Mother Brain cancer Mother No Known Problems Father Hypertension Sister Heart failure Sister SISTER Lung cancer Brother Hypertension Brother Non-Hodgkin's Lymphoma Daughter Stroke Daughter Hypertension Daughter Surgical complications Neg Hx Anesthesia problems Neg Hx Heart disease Neg Hx Clotting disorder Neg Hx Deep vein thrombosis Neg Hx Pulmonary embolism Neg Hx Social History Tobacco Use Smoking status: Never Smokeless tobacco: Never Vaping Use Vaping status: Never Used Substance Use Topics Alcohol use: Not Currently Comment: socially Drug use: No BP (!) 169/79 (BP Location: Right arm, Patient Position: Sitting) Pulse 74 Ht 5' 5 Wt 83.5 kg (184 lb) BMI 30.62 kg/m Physical Exam General: Alert, awake, no distress CV: RRR Pulm: Normal effort Skin: Warm, dry Vasc: Palpable L radial pulse; multiphasic L ulnar signal. She has a +digital artery signal on the lateral aspect of digit 2 and the medial aspect of digit 5. documented in this [id number] Instructions* Patient Instructions* Grayson Huffman MA - 08/17/2022 2:32 PM EDT How to contact your care team: Provider: MD Willis Carlin CNP Jill Bender, PA Nurse: Lucinda Andersen RN To reschedule office appointments call scheduling [phone]. In case of an emergency please call 911. When in need of refills please call the phone number listed above. Please include medication name, pharmacy name and specify 30 or 90 day supply. Please check with your pharmacy within 24 hours of your request for refill. You must follow up as directed to continue current refills. Thank you! documented in this [id number] History of Present illness Narrative* Yan Campbell MD - 07/13/2022 2:21 PM EST Assessment 71 yo F with LUE brachioaxillary AVG which required venous outflow cutting angioplasty after which she has developed numbness of the left hand. She reports to me that overall the numbness is improving - seems to just be her fingertips now. Similarly, her radial and ulnar artery signals at the wrist sound improved. I reviewed her outpatient HD duplex and arterial duplex from ~2 weeks ago - I am not worried she has an inflow stenosis, I think it is size mismatch. Her duplex is consistent with arterial insufficiency of the left hand, given low velocities in the left radial and ulnar arteries. Given that her symptoms are slowly improving, and she reports this is tolerable at this time, we will monitor her clinically. I have released her to begin using her graft - I did warn her that she may have more pain with use, which I instructed her to call about. I will also see her back in a month, as we need to keep a close eye on her hand. -RTC 1 month, clinical check, no studies needed -Released to use graft. 71 yo F with LUE brachioaxillary AVG which required venous outflow cutting angioplasty after which she has developed numbness of the left hand. She reports that her numbness in the left hand is improved. Still present, but now mostly in the fingertips only. Past Medical History: Diagnosis Date Anemia Chronic kidney disease (CKD) only one and 1/2 kidney Chronic kidney disease (CKD), active medical management without dialysis, stage 5 (HCC) Diabetes mellitus, type 2 (HCC) Dialysis patient (HCC) Diverticulosis 10/2021 Fibroid Glaucoma Gout H. pylori infection 10/2021 History of stress test 2016 screening and patient reports was normal Hyperlipidemia Hypertension Renal cell carcinoma (HCC) 02/06/2018 Right papillary renal cell carcinoma pT1a, pNX (stage I) s/p right nephrectomy Past Surgical History: Procedure Laterality Date COLONOSCOPY N/A 10/18/2021 Procedure: COLONOSCOPY with polypectomy; Surgeon: Chris Stovall MD; [place] [facility] Service: Gastroenterology CV IR INTERVENTIONAL RADIOLOGY N/A 11/14/2021 Procedure: IR DIALYSIS CATHETER INSERTION TUNNELED; Surgeon: Gerhard Walker MD; Location: IR LAB; Service: Interventional Radiology CV IR INTERVENTIONAL RADIOLOGY N/A 06/19/2022 Procedure: VR Fistulagram w/Intervention; Surgeon: Yan Campbell MD; Location: IR LAB; Service: Interventional Radiology EGD N/A 10/18/2021 Procedure: ESOPHAGOGASTRODUODENOSCOPY with biopsy and polypectomy; Surgeon: Chris Stovall MD; Location: [facility]; Service: Gastroenterology fatty tumor removed fibroid removed uterine FISTULA ARTERIOVENOUS Left 04/23/2022 Procedure: Attempted LEFT BRACHIOBASILIC FISTULA CREATION; Surgeon: Yan Campbell MD; Location: Main OR; Service: Gen-Vascular FISTULA ARTERIOVENOUS Left 05/16/2022 Procedure: LEFT UPPER EXTREMITY ARTERIOVENOUS Graft with Propaten PTFE GRAFT INSERTION; Surgeon: Yan Campbell MD; Location: Main OR; Service: Gen-Vascular HERNIA REPAIR HYSTERECTOMY NEPHRECTOMY PARTIAL ROBOTIC XI STAGE 2 Right 03/26/2018 Procedure: RIGHT ROBOTIC ASSISTED LAPAROSCOPIC PARTIAL NEPHRECTOMY LEVEL 2; Surgeon: Nasim Gaspar MD; Location: [facility] Main OR; Service: Urology Current Outpatient Medications Medication Sig Dispense Refill Accu-Chek Guide Glucose Meter Misc USE TEST BLOOD SUGAR 3 TIMES A DAY allopurinoL (ZYLOPRIM) 100 MG tablet Take 1.5 (one and a half) tablets (150 mg total) by mouth daily . amLODIPine (NORVASC) 10 MG tablet Take 1 (one) tablet (10 mg total) by mouth daily AM . aspirin 81 mg chewable tablet Chew and Swallow 1 (one) tablet (81 mg total) daily AM . atorvastatin (LIPITOR) 40 MG tablet Take 1 (one) tablet (40 mg total) by mouth every morning Reasons: high cholesterol. (Patient taking differently: Take 1 (one) tablet (40 mg total) by mouth Twice aweek AM Reasons: high cholesterol.) 90 tablet 3 carvediloL (COREG) 25 MG tablet Take 1 (one) tablet (25 mg total) by mouth 2 (two) times a day withmeals . 120 tablet 0 cloNIDine HCL (CATAPRES) 0.1 MG tablet Take 1 (one) tablet (0.1 mg total) by mouth 2 (two) times a day . dorzolamide-timoloL (COSOPT) 22.3-6.8 mg/mL ophthalmic solution Administer 1 (one) drop to both eyes 2 (two) times a day . dulaglutide (Trulicity) 1.5 mg/0.5 mL Pen Inject 0.5 mL (1.5 mg total) under the skin once a week . FreeStyle Lite Strips strips TEST 3 TIMES DAILY DIRECTED 200 strip 2 furosemide (LASIX) 40 MG tablet 1 tab and 2 tab alternate days . (Patient taking differently: Take 1 (one) tablet (40 mg total) by mouth daily .) 60 tablet 11 hydrALAZINE (APRESOLINE) 50 MG tablet Take 1 (one) tablet (50 mg total) by mouth 2 (two) times a day . insulin degludec (Tresiba FlexTouch U-200) 200 unit/mL (3 mL) InPn Inject 10 (ten) Units under the skin nightly . (Patient taking differently: Inject 10 (ten) Units under the skin nightly PRN .) 4.5 mL 0 predniSONE (DELTASONE) 20 MG tablet PRN . Velphoro 500 mg Chew CRUSH OR CHEW AND SWALLOW 1 TABLET 3 TIMES A DAY WITH MEALS Vitamin D2 1,250 mcg (50,000 unit) capsule TAKE 1 CAPSULE BY MOUTH ONCE PER WEEK (WEEKLY) FOR 10 WEEKS THEN START MONTHLY DOSES No current facility-administered medications for this visit. Family History Problem Relation Age of Onset Hypertension Mother Brain cancer Mother No Known Problems Father Hypertension Sister Heart failure Sister SISTER Lung cancer Brother Hypertension Brother Non-Hodgkin's Lymphoma Daughter Stroke Daughter Hypertension Daughter Surgical complications Neg Hx Anesthesia problems Neg Hx Heart disease Neg Hx Clotting disorder Neg Hx Deep vein thrombosis Neg Hx Pulmonary embolism Neg Hx Social History Tobacco Use Smoking status: Never Smokeless tobacco: Never Vaping Use Vaping Use: Never used Substance Use Topics Alcohol use: Not Currently Comment: socially Drug use: No ROS Negative, except as above BP (!) 153/79 (BP Location: Right arm, Patient Position: Sitting) Pulse 62 Ht 5' 5 Wt 82.6 kg (182 lb) BMI 30.29 kg/m Physical Exam General: Alert, awake, no distress CV: RRR Pulm: Normal effort Skin: Warm, dry Vasc: Improved signals in the left radial and ulnar arteries. AVG with palpable thrill. Labs/Imaging (my read); HD Duplex - size mismatch at the proximal arterial anastomosis. Elevated flows throughout the graft. No longer appears to have venous outflow stenosis. Arterial duplex - low velocities in the radial and ulnar arteries. documented in this [id number] Instructions* Patient Instructions* Grayson Huffman MA - 07/13/2022 1:59 PM EST How to contact your care team: Provider: MD Willis Carlin CNP Jill Bender, PA Nurse: Lucinda Andersen RN To reschedule office appointments call scheduling [phone]. In case of an emergency please call 911. When in need of refills please call the phone number listed above. Please include medication name, pharmacy name and specify 30 or 90 day supply. Please check with your pharmacy within 24 hours of your request for refill. You must follow up as directed to continue current refills. Thank you! documented in this [id number] Evaluation + Plan note* Assessment & Plan Note - Danny Rose MD - 07/08/2022 5:53 PM ESTAssociated Problem(s): Numbness and tingling in left hand New problem that she noticed post surgery for HD access. Starting to improve overall. We discussed possible post surgical change but she also has a lipoma on the left arm that is fairly large. Will monitor. We discussed symptoms that would require further imaging [id number] Miscellaneous Notes* Assessment & Plan Note - Danny Rose MD - 07/08/2022 5:53 PM ESTAssociated Problem(s): Numbness and tingling in left hand New problem that she noticed post surgery for HD access. Starting to improve overall. We discussed possible post surgical change but she also has a lipoma on the left arm that is fairly large. Will monitor. We discussed symptoms that would require further imaging * Assessment & Plan Note - Danny Rose MD - 07/08/2022 5:50 PM ESTAssociated Problem(s): Pain of left upper extremity Imaging did reveal a lipoma likely Arm mass-no change in the lipoma. No pain and it is not causing any dysfunction. Reviewed CY scan from 06/06, showed an encapsulated ovoid lipoma on the lateral aspect of the distaldeltoid * Assessment & Plan Note - Danny Rose MD - 07/08/2022 5:45 PM ESTAssociated Problem(s): (HFpEF) heart failure with preserved ejection fraction (HCC) Last echo 11/15/2021 showed LVH, grade 2 diastolic dysfunction. LVEF 68% and + pulmonary [id number] mmHg. GDMT- BB, diuretic She did request to be off of her ACEI She is also on dialysis * Assessment & Plan Note - Danny Rose MD - 07/08/2022 5:44 PM ESTAssociated Problem(s): Anemia due to stage 5 chronic kidney disease (HCC) Chronic, last H/H 9.4/30.6 * Assessment & Plan Note - Danny Rose MD - 07/08/2022 5:39 PM ESTAssociated Problem(s): Essential hypertension Chronic, uncontrolled. She is on dialysis. Recommend hydralazine TID on days not doing dialysis. Continue clonidine BID, Lasix a prescribed by nephrology, carvedilol 25 mg BID, amlodipine 10 mg * Assessment & Plan Note - Danny Rose MD - 07/08/2022 5:37 PM ESTAssociated Problem(s): Type 2 diabetes 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, with long-termcurrent use of insulin (HCC) Chronic last HA1c was 5.5. On 10 units insulin at bedtime. Will monitor, can like lt decrease to 5 units and consider discontinuing. * Assessment & Plan Note - Danny Rose MD - 07/08/2022 5:34 PM ESTAssociated Problem(s): Secondary hyperparathyroidism of renal origin (HCC) Chronic secondary to renal failure. She is on HD Calcium is wnl, low vitamin D Last PTH elevated. Labs due documented in this [id number] Evaluation + Plan note* Assessment & Plan Note - Danny Rose MD - 07/08/2022 5:50 PM ESTAssociated Problem(s): Pain of left upper extremity Imaging did reveal a lipoma likely Arm mass-no change in the lipoma. No pain and it is not causing any dysfunction. Reviewed CY scan from 06/06, showed an encapsulated ovoid lipoma on the lateral aspect of the distaldeltoid [id number] Evaluation + Plan note* Assessment & Plan Note - Danny Rose MD - 07/08/2022 5:45 PM ESTAssociated Problem(s): (HFpEF) heart failure with preserved ejection fraction (HCC) Last echo 11/15/2021 showed LVH, grade 2 diastolic dysfunction. LVEF 68% and + pulmonary Cicwpolxduiv58 mmHg. GDMT- BB, diuretic She did request to be off of her ACEI She is also on dialysis [id number] Evaluation + Plan note* Assessment & Plan Note - Danny Rose MD - 07/08/2022 5:44 PM ESTAssociated Problem(s): Anemia due to stage 5 chronic kidney disease (HCC) Chronic, last H/H 9.4/30.6 [id number] Evaluation + Plan note* Assessment & Plan Note - Danny Rose MD - 07/08/2022 5:39 PM ESTAssociated Problem(s): Essential hypertension Chronic, uncontrolled. She is on dialysis. Recommend hydralazine TID on days not doing dialysis. Continue clonidine BID, Lasix a prescribed by nephrology, carvedilol 25 mg BID, amlodipine 10 mg [id number] Evaluation + Plan note* Assessment & Plan Note - Danny Rose MD - 07/08/2022 5:37 PM ESTAssociated Problem(s): Type 2 diabetes 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, with long-termcurrent use of insulin (HCC) Chronic last HA1c was 5.5. On 10 units insulin at bedtime. Will monitor, can like lt decrease to 5 units and consider discontinuing. [id number] Evaluation + Plan note* Assessment & Plan Note - Danny Rose MD - 07/08/2022 5:34 PM ESTAssociated Problem(s): Secondary hyperparathyroidism of renal origin (HCC) Chronic secondary to renal failure. She is on HD Calcium is wnl, low vitamin D Last PTH elevated. Labs due [id number] History of Present illness Narrative* Danny Rose MD - 07/04/2022 3:15 PM EST Images from the original note were not included. Leslie Carcamo is a 71 y.o. female Assessment/Plan: Problem List Items Addressed This Visit Endocrine Secondary hyperparathyroidism of renal origin (HCC) Chronic secondary to renal failure. She is on HD Calcium is wnl, low vitamin D Last PTH elevated. Labs due Type 2 diabetes 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, with long-term current use of insulin(HCC) Chronic last HA1c was 5.5. On 10 units insulin at bedtime. Will monitor, can like lt decrease to 5 units and consider discontinuing. Cardiovascular and Mediastinum (HFpEF) heart failure with preserved ejection fraction (HCC) Last echo 11/15/2021 showed LVH, grade 2 diastolic dysfunction. LVEF 68% and + pulmonary Duwpzwscsfoh75 mmHg. GDMT- BB, diuretic She did request to be off of her ACEI She is also on dialysis Essential hypertension - Primary Chronic, uncontrolled. She is on dialysis. Recommend hydralazine TID on days not doing dialysis. Continue clonidine BID, Lasix a prescribed by nephrology, carvedilol 25 mg BID, amlodipine 10 mg Other Anemia due to stage 5 chronic kidney disease (HCC) Chronic, last H/H 9.4/30.6 Numbness and tingling in left hand New problem that she noticed post surgery for HD access. Starting to improve overall. We discussed possible post surgical change but she also has a lipoma on the left arm that is fairly large. Will monitor. We discussed symptoms that would require further imaging Pain of left upper extremity Imaging did reveal a lipoma likely Arm mass-no change in the lipoma. No pain and it is not causing any dysfunction. Reviewed CY scan from 06/06, showed an encapsulated ovoid lipoma on the lateral aspect of the distaldeltoid Return in about 6 months (around 01/01/2023) for Annual physical. Leslie Carcamo is a 71 y.o. female who presents for Chief Complaint Patient presents with Gap Closure (Health Maintenance) Mammogram due on 08/24/2021 Foot Exam due on 03/17/2022 Hypertension HPI This is a 71-year-old female with a history of end-stage renal disease on dialysis, anemia secondary to CKD, hypertension, diabetes, hyperparathyroidism and gout. She presents today for follow-up on her chronic conditions. She is concerned because her blood pressure remains high despite medication a djustments. She does go to dialysis on Mondays and Fridays. Dr. Ford normally sees her there. Mostrecently her medications are Coreg at half a tablet twice a day, clonidine 0.1 mg twice a day, hydralazine 50 mg twice a day, Lasix 40 mg once a day. She denies any swelling in her extremities. She denies any chest pain or shortness of breath. Diabetes-she is following with Dr. Valentin and continues to take 10 units of her insulin at night along with Trulicity. She denies any symptoms of low blood sugar. Left hand numbness-this has gotten better however it is still present. She also endorses intermittent sharp pains in the left hand. No weakness or loss of strength. No change in color. She does thinkit feels cold. Patient Active Problem List Diagnosis H/O partial nephrectomy End stage renal disease (HCC) Anemia due to stage 5 chronic kidney disease (HCC) COAG (chronic open-angle glaucoma) Essential hypertension Mixed hyperlipidemia Chronic midline low back pain without sciatica Class 1 obesity due to excess calories with serious comorbidity and body mass index (BMI) of 30.0 to 30.9 in adult Type 2 diabetes 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, with long-term current use of insulin(HCC) Gout History of renal cell carcinoma Chest pain Pain of left upper extremity Secondary hyperparathyroidism of renal origin (HCC) S/P arteriovenous (AV) fistula creation (HFpEF) heart failure with preserved ejection fraction (HCC) Numbness and tingling in left hand Past Surgical History: Procedure Laterality Date COLONOSCOPY N/A 10/18/2021 Procedure: COLONOSCOPY with polypectomy; Surgeon: Chris Stovall MD; [place] [facility] [place] Service: Gastroenterology CV IR INTERVENTIONAL RADIOLOGY N/A 11/14/2021 Procedure: IR DIALYSIS CATHETER INSERTION TUNNELED; Surgeon: Gerhard Walker MD; Location: IR LAB; Service: Interventional Radiology CV IR INTERVENTIONAL RADIOLOGY N/A 06/19/2022 Procedure: VR Fistulagram w/Intervention; Surgeon: Yan Campbell MD; Location: IR LAB; Service: Interventional Radiology EGD N/A 10/18/2021 Procedure: ESOPHAGOGASTRODUODENOSCOPY with biopsy and polypectomy; Surgeon: Chris Stovall MD; [place] [facility] [place]; Service: Gastroenterology fatty tumor removed fibroid removed uterine FISTULA ARTERIOVENOUS Left 04/23/2022 Procedure: Attempted LEFT BRACHIOBASILIC FISTULA CREATION; Surgeon: Yan Campbell MD; Location: Main OR; Service: Gen-Vascular FISTULA ARTERIOVENOUS Left 05/16/2022 Procedure: LEFT UPPER EXTREMITY ARTERIOVENOUS Graft with Propaten PTFE GRAFT INSERTION; Surgeon: Yan Campbell MD; Location: Main OR; Service: Gen-Vascular HERNIA REPAIR HYSTERECTOMY NEPHRECTOMY PARTIAL ROBOTIC XI STAGE 2 Right 03/26/2018 Procedure: RIGHT ROBOTIC ASSISTED LAPAROSCOPIC PARTIAL NEPHRECTOMY LEVEL 2; Surgeon: Nasim Gaspar MD; Location: [facility] Main OR; Service: Urology Family History Problem Relation Age of Onset Hypertension Mother Brain cancer Mother No Known Problems Father Hypertension Sister Heart failure Sister SISTER Lung cancer Brother Hypertension Brother Non-Hodgkin's Lymphoma Daughter Stroke Daughter Hypertension Daughter Surgical complications Neg Hx Anesthesia problems Neg Hx Heart disease Neg Hx Clotting disorder Neg Hx Deep vein thrombosis Neg Hx Pulmonary embolism Neg Hx Social History Tobacco Use Smoking status: Never Smokeless tobacco: Never Vaping Use Vaping Use: Never used Substance Use Topics Alcohol use: Not Currently Comment: socially Drug use: No Current Outpatient Medications Medication Sig Dispense Refill Accu-Chek Guide Glucose Meter Misc USE TEST BLOOD SUGAR 3 TIMES A DAY allopurinoL (ZYLOPRIM) 100 MG tablet Take 1.5 (one and a half) tablets (150 mg total) by mouth daily . amLODIPine (NORVASC) 10 MG tablet Take 1 (one) tablet (10 mg total) by mouth daily AM . aspirin 81 mg chewable tablet Chew and Swallow 1 (one) tablet (81 mg total) daily AM . atorvastatin (LIPITOR) 40 MG tablet Take 1 (one) tablet (40 mg total) by mouth every morning Reasons: high cholesterol. (Patient taking differently: Take 1 (one) tablet (40 mg total) by mouth Twice aweek AM Reasons: high cholesterol.) 90 tablet 3 carvediloL (COREG) 25 MG tablet Take 1 (one) tablet (25 mg total) by mouth 2 (two) times a day withmeals . 120 tablet 0 cloNIDine HCL (CATAPRES) 0.1 MG tablet Take 1 (one) tablet (0.1 mg total) by mouth 2 (two) times a day . dorzolamide-timoloL (COSOPT) 22.3-6.8 mg/mL ophthalmic solution Administer 1 (one) drop to both eyes 2 (two) times a day . dulaglutide (Trulicity) 1.5 mg/0.5 mL Pen Inject 0.5 mL (1.5 mg total) under the skin once a week . furosemide (LASIX) 40 MG tablet 1 tab and 2 tab alternate days . (Patient taking differently: Take 1 (one) tablet (40 mg total) by mouth daily .) 60 tablet 11 hydrALAZINE (APRESOLINE) 50 MG tablet Take 1 (one) tablet (50 mg total) by mouth 2 (two) times a day . insulin degludec (Tresiba FlexTouch U-200) 200 unit/mL (3 mL) InPn Inject 10 (ten) Units under the skin nightly . (Patient taking differently: Inject 10 (ten) Units under the skin nightly PRN .) 4.5 mL 0 predniSONE (DELTASONE) 20 MG tablet PRN . Velphoro 500 mg Chew CRUSH OR CHEW AND SWALLOW 1 TABLET 3 TIMES A DAY WITH MEALS Vitamin D2 1,250 mcg (50,000 unit) capsule TAKE 1 CAPSULE BY MOUTH ONCE PER WEEK (WEEKLY) FOR 10 WEEKS THEN START MONTHLY DOSES FreeStyle Lite Strips strips TEST 3 TIMES DAILY DIRECTED (Patient not taking: Reported on 07/04/2022 .) 200 strip 2 No current facility-administered medications for this visit. Review of Systems Constitutional: Negative for chills, diaphoresis and fatigue. Eyes: Negative for visual disturbance. Respiratory: Negative for cough and shortness of breath. Cardiovascular: Negative for chest pain, palpitations and leg swelling. Gastrointestinal: Negative for abdominal pain. Genitourinary: Negative. Musculoskeletal: Negative for back pain. Neurological: Positive for numbness. Negative for weakness. Psychiatric/Behavioral: Negative for confusion and sleep disturbance. Physical Exam: BP (!) 175/74 (BP Location: Right arm, Patient Position: Sitting, BP Cuff Size: Adult) Pulse 64 Temp 98.3 F (36.8 C) (Temporal) Resp 16 Ht 5' 5 Wt 83.4 kg (183 lb 12.8 oz) SpO2 98% BMI30.59 kg/m Wt Readings from Last 3 Encounters: 07/04/22 83.4 kg (183 lb 12.8 oz) 07/03/22 82.6 kg (182 lb) 06/20/22 81.6 kg (180 lb) BP Readings from Last 3 Encounters: 07/04/22 (!) 175/74 07/03/22 128/77 06/20/22 (!) 162/69 Physical Exam Vitals reviewed. Constitutional: General: She is not in acute distress. Appearance: She is not ill-appearing. HENT: Head: Normocephalic. Eyes: Conjunctiva/sclera: Conjunctivae normal. Cardiovascular: Rate and Rhythm: Normal rate. Pulmonary: Effort: Pulmonary effort is normal. No respiratory distress. Musculoskeletal: Right lower leg: No edema. Left lower leg: No edema. Skin: Findings: No rash. Neurological: Mental Status: She is alert and oriented to person, place, and time. Psychiatric: Mood and Affect: Mood normal. Behavior: Behavior normal. Thought Content: Thought content normal. Health Maintenance Due Topic Date Due Tetanus: Every 10yrs Never done Dexa Scan Never done Pneumococcal Vaccine: Age 65+ (1 - PCV) Never done Zoster Vaccines (1 of 2) Never done Falls Risk Assessment 07/21/2021 Mammogram 08/24/2021 COVID-19 Vaccine (4 - Booster) 08/31/2021 Wellness Visit 03/17/2022 Foot Exam 03/17/2022 Depression Screening (PHQ-2/9) 05/08/2022 Goals Blood Pressure < 130/80 HEMOGLOBIN A1C < 7 Blood sugar levels outside the normal range may be an indicator of diabetes. Please note: Portions of this chart may have been created with Apse voice recognition software. Occasional wrong-word or sound-like substitutions may have occurred due to inherent limitations of the voice recognition software. Please read the chart carefully and recognize, using context, where the substitutions have occurred. For any new medications prescribed today, patient was educated about indications for the medication, how to take the medication and potential side effects of the medications. documented in this [id number] Evaluation + Plan note* Assessment & Plan Note - Willis Park CNP - 07/03/2022 10:26 AM EST Associated Problem(s): Type 2 diabetes 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, with long-termcurrent use of insulin (HCC) Lab Results Component Value Date HGBA1C 5.5 06/05/2022 -[id number] Evaluation + Plan note* Assessment & Plan Note - Willis Park CNP - 07/03/2022 10:26 AM ESTAssociated Problem(s): Essential hypertension Well controlled per JNC 8 guidelines at 128/77 -Managed [facility] PCP [facility] [id number] Evaluation + Plan note* Assessment & Plan Note - Willis Park CNP - 07/03/2022 10:26 AM ESTAssociated Problem(s): S/P arteriovenous (AV) fistula creation Leslie has known ESRD. She is now approximately 7 weeks post left upper arm AVF creation. She has c/o pain , numbness, and weakness. She is also 3 weeks post fistulagra with intervention. She continues to c/o numbness of the left hand that waxes and weans. She c/o associated left hand weakness, decreased sensation, and feeling of coldness. She is interested in discussing possible ligation with Aundrea. [place] [facility] [place] with 7mm cutting balloon angioplasty of left outflow vein by Dr Campbell 05/16/2022 Left upper extremity arteriovenous graft (brachial artery, axillary vein) insertion by Dr Campbell 06/28/2022 US HD access Conclusions * Elevated velocity at the proximal arterial anastomosis, concerning for size mismatch versus hemodynamically significant stenosis. Otherwise patent graft with adequate flow. 06/28/2022 Arterial duplex left upper extremity Conclusions * Left. * Left arm has a brachial artery to axillary artery graft. Measurements listed. * Low velocities note in radial and ulnar artery. -Will have her return to see Dr Campbell [facility] [id number] Miscellaneous Notes* Assessment & Plan Note - Willis Park CNP - 07/03/2022 10:26 AM ESTAssociated Problem(s): Type 2 diabetes 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, with long-termcurrent use of insulin (HCC) Lab Results Component Value Date HGBA1C 5.5 06/05/2022 -Managed by PCP * Assessment & Plan Note - Willis Park CNP - 07/03/2022 10:26 AM EST Associated Problem(s): Essential hypertension Well controlled per JNC 8 guidelines at 128/77 -Managed by PCP * Assessment & Plan Note - Willis Park CNP - 07/03/2022 10:26 AM EST Associated Problem(s): S/P arteriovenous (AV) fistula creation Leslie has known ESRD. She is now approximately 7 weeks post left upper arm AVF creation. She has c/o pain , numbness, and weakness. She is also 3 weeks post fistulagra with intervention. She continues to c/o numbness of the left hand that waxes and weans. She c/o associated left hand weakness, decreased sensation, and feeling of coldness. She is interested in discussing possible ligation with Aundrea. 06/19[place]20[place] [facility] [place] with 7mm cutting balloon angioplasty of left outflow vein by Dr Campbell 05/16/2022 Left upper extremity arteriovenous graft (brachial artery, axillary vein) insertion by Dr Campbell 06/28/2022 US HD access Conclusions * Elevated velocity at the proximal arterial anastomosis, concerning for size mismatch versus hemodynamically significant stenosis. Otherwise patent graft with adequate flow. 06/28/2022 Arterial duplex left upper extremity Conclusions * Left. * Left arm has a brachial artery to axillary artery graft. Measurements listed. * Low velocities note in radial and ulnar artery. -Will have her return to see Dr Campbell documented in this [id number] History of Present illness Narrative* Willis Damonelidia, WEAVER W[employer] LOOM - 07/03/2022 10:24 AM EST VASCULAR MEDICINE CLINIC NOTE Patient Name: Leslie Carcamo MR #: [id number] : 1950 Physicians: Danny Rose MD (Family); No ref. provider found (Referring) Assessment and Plan: S/P arteriovenous (AV) fistula creation Leslie has known ESRD. She is now approximately 7 weeks post left upper arm AVF creation. She has c/o pain , numbness, and weakness. She is also 3 weeks post fistulagra with intervention. She continues to c/o numbness of the left hand that waxes and weans. She c/o associated left hand weakness, decreased sensation, and feeling of coldness. She is interested in discussing possible ligation with Aundrea. 06/19/2022 LUE AVG angiogram with 7mm cutting balloon angioplasty of left outflow vein by Dr Campbell 05/16/2022 Left upper extremity arteriovenous graft (brachial artery, axillary vein) insertion by Dr Campbell 06/28/2022 US HD access Conclusions * Elevated velocity at the proximal arterial anastomosis, concerning for size mismatch versus hemodynamically significant stenosis. Otherwise patent graft with adequate flow. 06/28/2022 Arterial duplex left upper extremity Conclusions * Left. * Left arm has a brachial artery to axillary artery graft. Measurements listed. * Low velocities note in radial and ulnar artery. -Will have her return to see Dr Campbell Essential hypertension Well controlled per JNC 8 guidelines at 128/77 -Managed by PCP Type 2 diabetes 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, with long-term current use of insulin([facility]) Lab Results Component Value Date HGBA1C 5.5 06/05/2022 -Managed by PCP History of Present Illness: I had the pleasure to see Leslie Carcamo who is a 71 y.o. female with a past medical history as outlined below. Leslie Carcamo presents today on 07/03/2022 in the Vascular clinicfor postoperative follow up. She continues to have waxing and waning numbness of the left hand. Shestates that the left hand feels cold and painful. She also states that the left hand is weak and she is dropping things from her hand. She admits to decreased sensation of the left hand. Patient denies complaints of chest pain, SOB, abdominal pain, lightheadedness, dizziness. They have had no syncope or TIA/CVA type symptoms. Patient denies claudication or BLE rest pain. History: Past Medical History: Diagnosis Date Anemia Chronic kidney disease (CKD) only one and 1/2 kidney Chronic kidney disease (CKD), active medical management without dialysis, stage 5 (HCC) Diabetes mellitus, type 2 (HCC) Dialysis patient (HCC) Diverticulosis 10/2021 Fibroid Glaucoma Gout H. pylori infection 10/2021 History of stress test 2016 screening and patient reports was normal Hyperlipidemia Hypertension Renal cell carcinoma (HCC) 02/06/2018 Right papillary renal cell carcinoma pT1a, pNX (stage I) s/p right nephrectomy Past Surgical History: Procedure Laterality Date COLONOSCOPY N/A 10/18/2021 Procedure: COLONOSCOPY with polypectomy; Surgeon: Chris Stovall MD; [place] [facility] [place] Service: Gastroenterology CV IR INTERVENTIONAL RADIOLOGY N/A 11/14/2021 Procedure: IR DIALYSIS CATHETER INSERTION TUNNELED; Surgeon: Gerhard Walker MD; Location: IR LAB; Service: Interventional Radiology CV IR INTERVENTIONAL RADIOLOGY N/A 06/19/2022 Procedure: VR Fistulagram w/Intervention; Surgeon: Yan Campbell MD; Location: IR LAB; Service: Interventional Radiology EGD N/A 10/18/2021 Procedure: ESOPHAGOGASTRODUODENOSCOPY with biopsy and polypectomy; Surgeon: Chris Stovall MD; [place] [facility] [place] Service: Gastroenterology fatty tumor removed fibroid removed uterine FISTULA ARTERIOVENOUS Left 04/23/2022 Procedure: Attempted LEFT BRACHIOBASILIC FISTULA CREATION; Surgeon: Yan Campbell MD; Location: Main OR; Service: Gen-Vascular FISTULA ARTERIOVENOUS Left 05/16/2022 Procedure: LEFT UPPER EXTREMITY ARTERIOVENOUS Graft with Propaten PTFE GRAFT INSERTION; Surgeon: Yan Campbell MD; Location: Main OR; Service: Gen-Vascular HERNIA REPAIR HYSTERECTOMY NEPHRECTOMY PARTIAL ROBOTIC XI STAGE 2 Right 03/26/2018 Procedure: RIGHT ROBOTIC ASSISTED LAPAROSCOPIC PARTIAL NEPHRECTOMY LEVEL 2; Surgeon: Nasim Gaspar MD; Location: [facility] Main OR; Service: Urology Family History Problem Relation Age of Onset Hypertension Mother Brain cancer Mother No Known Problems Father Hypertension Sister Heart failure Sister SISTER Lung cancer Brother Hypertension Brother Non-Hodgkin's Lymphoma Daughter Stroke Daughter Hypertension Daughter Surgical complications Neg Hx Anesthesia problems Neg Hx Heart disease Neg Hx Clotting disorder Neg Hx Deep vein thrombosis Neg Hx Pulmonary embolism Neg Hx Social History Socioeconomic History Marital status: Tobacco Use Smoking status: Never Smokeless tobacco: Never Vaping Use Vaping Use: Never used Substance and Sexual Activity Alcohol use: Not Currently Comment: socially Drug use: No Sexual activity: Yes Social Determinants of Health Financial Resource Strain: Medium Risk Difficulty of Paying Living Expenses: Somewhat hard Food Insecurity: No Food Insecurity Worried About Running Out of Food in the Last Year: Never true Ran Out of Food in the Last Year: Never true Transportation Needs: No Transportation Needs Lack of Transportation (Medical): No Lack of Transportation (Non-Medical): No Social Connections: Unknown Frequency of Social Gatherings with Friends and Family: Once a week Allergy Information: I have reviewed the patient's allergies. Patient has no known allergies. Home Medications: Current Outpatient Medications Medication Sig Dispense Refill allopurinoL (ZYLOPRIM) 100 MG tablet Take 1.5 (one and a half) tablets (150 mg total) by mouth daily . amLODIPine (NORVASC) 10 MG tablet Take 1 (one) tablet (10 mg total) by mouth daily AM . aspirin 81 mg chewable tablet Chew and Swallow 1 (one) tablet (81 mg total) daily AM . atorvastatin (LIPITOR) 40 MG tablet Take 1 (one) tablet (40 mg total) by mouth every morning Reasons: high cholesterol. (Patient taking differently: Take 1 (one) tablet (40 mg total) by mouth Twice aweek AM Reasons: high cholesterol.) 90 tablet 3 carvediloL (COREG) 25 MG tablet Take 1 (one) tablet (25 mg total) by mouth 2 (two) times a day withmeals . 120 tablet 0 cloNIDine HCL (CATAPRES) 0.1 MG tablet Take 1 (one) tablet (0.1 mg total) by mouth 2 (two) times a day . dorzolamide-timoloL (COSOPT) 22.3-6.8 mg/mL ophthalmic solution Administer 1 (one) drop to both eyes 2 (two) times a day . dulaglutide (Trulicity) 1.5 mg/0.5 mL Pen Inject 0.5 mL (1.5 mg total) under the skin once a week . FreeStyle Lite Strips strips TEST 3 TIMES DAILY DIRECTED (Patient not taking: Reported on 07/04/2022 .) 200 strip 2 furosemide (LASIX) 40 MG tablet 1 tab and 2 tab alternate days . (Patient taking differently: Take 1 (one) tablet (40 mg total) by mouth daily .) 60 tablet 11 hydrALAZINE (APRESOLINE) 50 MG tablet Take 1 (one) tablet (50 mg total) by mouth 2 (two) times a day . insulin degludec (Tresiba FlexTouch U-200) 200 unit/mL (3 mL) InPn Inject 10 (ten) Units under the skin nightly . (Patient taking differently: Inject 10 (ten) Units under the skin nightly PRN .) 4.5 mL 0 predniSONE (DELTASONE) 20 MG tablet PRN . Velphoro 500 mg Chew CRUSH OR CHEW AND SWALLOW 1 TABLET 3 TIMES A DAY WITH MEALS Accu-Chek Guide Glucose Meter [facility] USE TEST BLOOD SUGAR 3 TIMES A DAY Vitamin D2 1,250 mcg (50,000 unit) capsule TAKE 1 CAPSULE BY MOUTH ONCE PER WEEK (WEEKLY) FOR 10 WEEKS THEN START MONTHLY DOSES No current facility-administered medications for this visit. Review of Systems: Review of Systems Constitutional: Negative for chills, fever, malaise/fatigue, night sweats and weight loss. HENT: Negative for hoarse voice and nosebleeds. Eyes: Negative for blurred vision and double vision. Cardiovascular: Negative for chest pain, claudication, dyspnea on exertion, irregular heartbeat, leg swelling, near-syncope, orthopnea, palpitations, paroxysmal nocturnal dyspnea and syncope. Respiratory: Negative for shortness of breath, snoring and wheezing. Hematologic/Lymphatic: Negative for bleeding problem. Does not bruise/bleed easily. Skin: Negative for rash. Musculoskeletal: Positive for arthritis and joint pain (shoulders). Negative for back pain, muscle weakness and myalgias. Gastrointestinal: Negative for abdominal pain and heartburn. Genitourinary: Positive for nocturia (once). Negative for dysuria and hematuria. Neurological: Positive for numbness (left hand), paresthesias (left hand) and sensory change (decreased sensation of the left hand). Negative for dizziness, focal weakness, headaches and light-headedness. Psychiatric/Behavioral: Negative for altered mental status, depression, memory loss, substance abuse and suicidal ideas. The patient is not nervous/anxious. Physical Examination: Vital Signs: BP 128/77 (BP Location: Right arm, Patient Position: Sitting) Pulse 60 Ht 5' 5 Wt 82.6 kg (182 lb) BMI 30.29 kg/m Physical Exam Physical Exam Vitals and nursing note reviewed. Constitutional: Appearance: Normal appearance. HENT: Head: Normocephalic. Eyes: General: Lids are normal. Cardiovascular: Rate and Rhythm: Normal rate and regular rhythm. Pulses: Radial pulses are 2+ on the right side and 0 on the left side. Heart sounds: No murmur heard. Comments: I am unable to palpate thrill. There is good bruit present. Pulmonary: Effort: No respiratory distress. Breath sounds: No decreased breath sounds, wheezing, rhonchi or rales. Skin: General: Skin is warm and dry. Neurological: Mental Status: She is alert and oriented to person, place, and time. Psychiatric: Behavior: Behavior is not agitated. Approximately 30 minutes was spent [id number], reviewing chart, and writing notes. More than 50% of this time was spent counseling and coordinating care with the patient. Thank you for allowing me to participate in Leslie Carcamo's care. Should you have any questions regarding their management please do not hesitate to contact me. documented in this [id number] Instructions* Patient Instructions* Grayson Huffman MA - 07/03/2022 10:05 AM EST How to contact your care team: Provider: MD Willis Carlin CNP Jill Bender, PA Nurse: Lucinda Andersen RN To reschedule office appointments call scheduling [phone]. In case of an emergency please call 911. When in need of refills please call the phone number listed above. Please include medication name, pharmacy name and specify 30 or 90 day supply. Please check with your pharmacy within 24 hours of your request for refill. You must follow up as directed to continue current refills. Thank you! documented in this [id number] Evaluation + Plan note* Assessment & Plan Note - Chriss Wyman MD - 06/23/2022 2:25 PM EST Associated Problem(s): End stage renal disease (HCC) Reviewed. [id number] Miscellaneous Notes* Assessment & Plan Note - Chriss Wyman MD - 06/23/2022 2:25 PM ESTAssociated Problem(s): End stage renal disease (HCC) Reviewed. documented in this [id number] History of Present illness Narrative* Chriss Wyman MD - 06/20/2022 3:55 PM EST [facility] [address] ([address] [facility] [address] [place] [id number] Subjective: Leslie Carcamo is a 71 y.o. female seen in the office today for Chief Complaint Patient presents with Follow-up 6mo -numbness L arm since fistula procedure with DR. Mi yesterday Denies any chest pain. No significant shortness of breath nuclear stress test normal summer 2021 echocardiogram unremarkable at that time normal LV function denies any palpitations or tachycardia. Does complain of numbness in the left hand. Status post recent procedure of the left AV fistula. Markedly decreased left radial and ulnar pulse hand is cooler than right nailbeds unable to examine due to decoration. Pulse regular today. Cardiac bhat doing well. Does complain of some tingling numbness in her left hand. Told her if not feeling better next several days contact Dr. Krishna's office. Appears to have adequate circulation today. Overview of Problems Addressed: Problem End Stage Renal Disease (Hcc) Assessment & Plan: Cardiac bhat see back as needed. End stage renal disease (HCC) Reviewed. Histories: Past Medical History: Diagnosis Date Anemia Chronic kidney disease (CKD) only one and 1/2 kidney Chronic kidney disease (CKD), active medical management without dialysis, stage 5 (HCC) Diabetes mellitus, type 2 (HCC) Dialysis patient (HCC) Diverticulosis 10/2021 Fibroid Glaucoma Gout H. pylori infection 10/2021 History of stress test 2016 screening and patient reports was normal Hyperlipidemia Hypertension Renal cell carcinoma (HCC) 02/06/2018 Right papillary renal cell carcinoma pT1a, pNX (stage I) s/p right nephrectomy Past Surgical History: Procedure Laterality Date COLONOSCOPY N/A 10/18/2021 Procedure: COLONOSCOPY with polypectomy; Surgeon: Chris Stovall MD; [place] [facility] [place] Service: Gastroenterology CV IR INTERVENTIONAL RADIOLOGY N/A 11/14/2021 Procedure: IR DIALYSIS CATHETER INSERTION TUNNELED; Surgeon: Gerhard Walker MD; Location: IR LAB; Service: Interventional Radiology CV IR INTERVENTIONAL RADIOLOGY N/A 06/19/2022 Procedure: VR Fistulagram w/Intervention; Surgeon: Yan Campbell MD; Location: IR LAB; Service: Interventional Radiology EGD N/A 10/18/2021 Procedure: ESOPHAGOGASTRODUODENOSCOPY with biopsy and polypectomy; Surgeon: Chris Stovall MD; Location[place] [facility]; Service: Gastroenterology fatty tumor removed fibroid removed uterine FISTULA ARTERIOVENOUS Left 04/23/2022 Procedure: Attempted LEFT BRACHIOBASILIC FISTULA CREATION; Surgeon: Yan Campbell MD; Location: Main OR; Service: Gen-Vascular FISTULA ARTERIOVENOUS Left 05/16/2022 Procedure: LEFT UPPER EXTREMITY ARTERIOVENOUS Graft with Propaten PTFE GRAFT INSERTION; Surgeon: Yan Campbell MD; Location: Main OR; Service: Gen-Vascular HERNIA REPAIR HYSTERECTOMY NEPHRECTOMY PARTIAL ROBOTIC XI STAGE 2 Right 03/26/2018 Procedure: RIGHT ROBOTIC ASSISTED LAPAROSCOPIC PARTIAL NEPHRECTOMY LEVEL 2; Surgeon: Nasim Gaspar MD; Location: [facility] Main OR; Service: Urology Family History Problem Relation Age of Onset Hypertension Mother Brain cancer Mother No Known Problems Father Hypertension Sister Heart failure Sister SISTER Lung cancer Brother Hypertension Brother Non-Hodgkin's Lymphoma Daughter Stroke Daughter Hypertension Daughter Surgical complications Neg Hx Anesthesia problems Neg Hx Heart disease Neg Hx Clotting disorder Neg Hx Deep vein thrombosis Neg Hx Pulmonary embolism Neg Hx Social History Tobacco Use Smoking status: Never Smokeless tobacco: Never Vaping Use Vaping Use: Never used Substance Use Topics Alcohol use: Not Currently Comment: socially Drug use: No Patient's Medications New Prescriptions No medications on file Previous Medications ALLOPURINOL (ZYLOPRIM) 100 MG TABLET Take 1.5 (one and a half) tablets (150 mg total) by mouth daily . AMLODIPINE (NORVASC) 10 MG TABLET Take 1 (one) tablet (10 mg total) by mouth daily AM . ASPIRIN 81 MG CHEWABLE TABLET Chew and Swallow 1 (one) tablet (81 mg total) daily AM . ATORVASTATIN (LIPITOR) 40 MG TABLET Take 1 (one) tablet (40 mg total) by mouth every morning Reasons: high cholesterol. CARVEDILOL (COREG) 25 MG TABLET Take 1 (one) tablet (25 mg total) by mouth 2 (two) times a day withmeals . CLONIDINE HCL (CATAPRES) 0.1 MG TABLET Take 1 (one) tablet (0.1 mg total) by mouth 2 (two) times a day . DORZOLAMIDE-TIMOLOL (COSOPT) 22.3-6.8 MG/ML OPHTHALMIC SOLUTION Administer 1 (one) drop to both eyes 2 (two) times a day . DULAGLUTIDE (TRULICITY) 1.5 MG/0.5 ML PEN Inject 0.5 mL (1.5 mg total) under the skin once a week . FREESTYLE LITE STRIPS STRIPS TEST 3 TIMES DAILY DIRECTED FUROSEMIDE (LASIX) 40 MG TABLET 1 tab and 2 tab alternate days . HYDRALAZINE (APRESOLINE) 50 MG TABLET Take 1 (one) tablet (50 mg total) by mouth 2 (two) times a day . INSULIN DEGLUDEC (TRESIBA FLEXTOUCH U-200) 200 UNIT/ML (3 ML) INPN Inject 10 (ten) Units under the skin nightly . PREDNISONE (DELTASONE) 20 MG TABLET PRN . VELPHORO 500 MG CHEW CRUSH OR CHEW AND SWALLOW 1 TABLET 3 TIMES A DAY WITH MEALS Modified Medications No medications on file Discontinued Medications No medications on file No Known Allergies Review of Systems Constitutional: Negative for malaise/fatigue. Cardiovascular: Negative for chest pain, dyspnea on exertion, leg swelling and palpitations. Neurological: Negative for dizziness. Objective: Physical Exam Vitals and nursing note reviewed. Constitutional: General: She is not in acute distress. Appearance: She is well-developed. She is not diaphoretic. Comments: No acute distress HENT: Head: Normocephalic. Eyes: General: No scleral icterus. Comments: Pupils equal. Neck: Vascular: No JVD. Cardiovascular: Rate and Rhythm: Regular rhythm. Pulses: Radial pulses are 2+ on the right side and 0 on the left side. Heart sounds: S1 normal and S2 normal. No murmur heard. No gallop. No S3 or S4 sounds. Comments: Feet warm bilateral. Left hand warm. Av fistula left arm. Pulmonary: Effort: No respiratory distress. Breath sounds: Normal breath sounds. No stridor. No wheezing or rales. Abdominal: General: There is no distension. Palpations: Abdomen is soft. Tenderness: There is no abdominal tenderness. There is no guarding. Musculoskeletal: General: No tenderness. Skin: General: Skin is warm and dry. Neurological: Mental Status: She is alert and oriented to person, place, and time. Psychiatric: Behavior: Behavior normal. Vitals: Vitals: 06/20/22 1527 06/20/22 1531 BP: (!) 167/69 (!) 162/69 BP Location: Right arm Right arm Patient Position: Sitting BP Cuff Size: Adult Pulse: 61 SpO2: 99% Weight: 81.6 kg (180 lb) Height: 5' 5 Body mass index is 29.95 kg/m . No orders of the defined types were placed in this encounter. Follow Up Ordered: Return if symptoms worsen or fail to improve. Chriss Wyman MD * Jerrica Whiting MA - 06/20/2022 3:31 PM EST Review of Systems Constitutional: Negative for malaise/fatigue. Cardiovascular: Negative for chest pain, dyspnea on exertion, leg swelling and palpitations. Neurological: Negative for dizziness. documented in this [id number] History of Present illness Narrative* Yan Campbell MD - 06/15/2022 3:57 PM EST Assessment 71 yo F PMH of ESRD s/p LUE brachioaxillary AVG insertion on 05/16 Duplex reviewed - venous outflow stenosis. Will plan for angiogram with intervention, likely balloon angioplasty vs stent. -Angiogram with intervention - RBA discussed. 71 yo F PMH of ESRD s/p LUE brachioaxillary AVG insertion 05/16 Reports she has overall been doing well. Still has some numbness on the posterior aspect of her left forearm. No weakness, no numbness of hand. Past Medical History: Diagnosis Date Anemia Chronic kidney disease (CKD) only one and 1/2 kidney Chronic kidney disease (CKD), active medical management without dialysis, stage 5 (HCC) Diabetes mellitus, type 2 (HCC) Dialysis patient (HCC) Diverticulosis 10/2021 Fibroid Glaucoma Gout H. pylori infection 10/2021 History of stress test 2016 screening and patient reports was normal Hyperlipidemia Hypertension Renal cell carcinoma (HCC) 02/06/2018 Right papillary renal cell carcinoma pT1a, pNX (stage I) s/p right nephrectomy Past Surgical History: Procedure Laterality Date COLONOSCOPY N/A 10/18/2021 Procedure: COLONOSCOPY with polypectomy; Surgeon: Chris Stovall MD; Location[place] [facility] [place]; Service: Gastroenterology CV IR INTERVENTIONAL RADIOLOGY N/A 11/14/2021 Procedure: IR DIALYSIS CATHETER INSERTION TUNNELED; Surgeon: Gerhard Walker MD; Location: IR LAB; Service: Interventional Radiology EGD N/A 10/18/2021 Procedure: ESOPHAGOGASTRODUODENOSCOPY with biopsy and polypectomy; Surgeon: Chris Stovall MD; Location[place] [facility]; Service: Gastroenterology fatty tumor removed fibroid removed uterine FISTULA ARTERIOVENOUS Left 04/23/2022 Procedure: Attempted LEFT BRACHIOBASILIC FISTULA CREATION; Surgeon: Yan Campbell MD; Location: Main OR; Service: Gen-Vascular FISTULA ARTERIOVENOUS Left 05/16/2022 Procedure: LEFT UPPER EXTREMITY ARTERIOVENOUS Graft with Propaten PTFE GRAFT INSERTION; Surgeon: Yan Campbell MD; Location: Main OR; Service: Gen-Vascular HERNIA REPAIR HYSTERECTOMY NEPHRECTOMY PARTIAL ROBOTIC XI STAGE 2 Right 03/26/2018 Procedure: RIGHT ROBOTIC ASSISTED LAPAROSCOPIC PARTIAL NEPHRECTOMY LEVEL 2; Surgeon: Nasim Gaspar MD; Location: [facility] Main OR; Service: Urology Current Outpatient Medications Medication Sig Dispense Refill allopurinoL (ZYLOPRIM) 100 MG tablet Take 1.5 (one and a half) tablets (150 mg total) by mouth daily . amLODIPine (NORVASC) 10 MG tablet Take 1 (one) tablet (10 mg total) by mouth daily AM . aspirin 81 mg chewable tablet Chew and Swallow 1 (one) tablet (81 mg total) daily AM . atorvastatin (LIPITOR) 40 MG tablet Take 1 (one) tablet (40 mg total) by mouth every morning Reasons: high cholesterol. (Patient taking differently: Take 1 (one) tablet (40 mg total) by mouth Twice aweek AM Reasons: high cholesterol.) 90 tablet 3 carvediloL (COREG) 25 MG tablet Take 1 (one) tablet (25 mg total) by mouth 2 (two) times a day withmeals . 120 tablet 0 dorzolamide-timoloL (COSOPT) 22.3-6.8 mg/mL ophthalmic solution Administer 1 (one) drop to both eyes 2 (two) times a day . dulaglutide (Trulicity) 1.5 mg/0.5 mL Pen Inject 0.5 mL (1.5 mg total) under the skin once a week . FreeStyle Lite Strips strips TEST 3 TIMES DAILY DIRECTED 200 strip 2 furosemide (LASIX) 40 MG tablet 1 tab and 2 tab alternate days . (Patient taking differently: Take 1 (one) tablet (40 mg total) by mouth daily .) 60 tablet 11 hydrALAZINE (APRESOLINE) 50 MG tablet Take 1 (one) tablet (50 mg total) by mouth 2 (two) times a day . insulin degludec (Tresiba FlexTouch U-200) 200 unit/mL (3 mL) InPn Inject 10 (ten) Units under the skin nightly . (Patient taking differently: Inject 10 (ten) Units under the skin nightly PRN .) 4.5 mL 0 predniSONE (DELTASONE) 20 MG tablet PRN . Velphoro 500 mg Chew CRUSH OR CHEW AND SWALLOW 1 TABLET 3 TIMES A DAY WITH MEALS No current facility-administered medications for this visit. Family History Problem Relation Age of Onset Hypertension Mother Brain cancer Mother No Known Problems Father Hypertension Sister Heart failure Sister SISTER Lung cancer Brother Hypertension Brother Non-Hodgkin's Lymphoma Daughter Stroke Daughter Hypertension Daughter Surgical complications Neg Hx Anesthesia problems Neg Hx Heart disease Neg Hx Clotting disorder Neg Hx Deep vein thrombosis Neg Hx Pulmonary embolism Neg Hx Social History Tobacco Use Smoking status: Never Smokeless tobacco: Never Vaping Use Vaping Use: Never used Substance Use Topics Alcohol use: Not Currently Comment: socially Drug use: No ROS Negative, except as above BP (!) 153/75 (BP Location: Right arm, Patient Position: Sitting) Pulse 60 Ht 5' 6 Wt 83.5 kg (184 lb) BMI 29.70 kg/m Physical Exam General: Alert, awake, no distress CV: RRR Pulm: Normal effort Skin: Warm, dry Vasc: AVG with pulsatile flow, weak thrill Labs/Imaging: HD Duplex (my read): Stenosis in venous outflow, patent arterial and venous anastomoses documented in this [id number] Instructions* Patient Instructions* Lulu Gunderson MA - 06/15/2022 3:36 PM EST How to contact your care team: Provider: MD Willis Carlin CNP Jill Bender, PA Nurse: Lucinda Andersen RN To reschedule office appointments call scheduling [phone]. In case of an emergency please call 911. When in need of refills please call the phone number listed above. Please include medication name, pharmacy name and specify 30 or 90 day supply. Please check with your pharmacy within 24 hours of your request for refill. You must follow up as directed to continue current refills. Thank you! documented in this [id number] History of Present illness Narrative* Ras Wu - 06/12/2022 1:00 PM EST Nurse Note: Review of Systems Constitutional: Negative for fatigue and unexpected weight change. Eyes: Positive for visual disturbance (A LITTLE BLURRED). Respiratory: Negative for shortness of breath. Gastrointestinal: Negative for constipation, diarrhea, nausea and vomiting. Endocrine: Negative for polydipsia and polyuria. Neurological: Negative for numbness. Psychiatric/Behavioral: Positive for sleep disturbance (awake and asleep a lot). Nursing Assessment: Physical Exam * Ryan Hardin MD - 06/12/2022 1:00 PM EST History of Present Illness Type 2 diabetes with renal failure: This is a follow-up visit to the office. She was diagnosed withdiabetes in 2011. Family history of diabetes includes her daughter. Not taking metformin due to CKD. Currently taking Trulicity 1.5 mg weekly and Tresiba 12 units daily. She is on hemodialysis twice a week. She has been holding Tresiba if blood sugar <150 mg/dL at bedtime, always basing Tresiba off bedtime sugars. Denies any hypoglycemic symptoms. She is able to verbalize appropriate treatment of hypoglycemia and also does have nasal glucagon available at home. Does not see a valve pipe irrigator and denies any symptoms of peripheral neuropathy. Hypertension: Blood pressure at target today. Follows closely with nephrology for blood pressure control. Hyperlipidemia: LDL = 78, triglyceride = 73. Currently on atorvastatin 40 mg daily. Review of Systems Nurse Note: Review of Systems Constitutional: Negative for fatigue and unexpected weight change. Eyes: Positive for visual disturbance (A LITTLE BLURRED). Respiratory: Negative for shortness of breath. Gastrointestinal: Negative for constipation, diarrhea, nausea and vomiting. Endocrine: Negative for polydipsia and polyuria. Neurological: Negative for numbness. Psychiatric/Behavioral: Positive for sleep disturbance (awake and asleep a lot). Nursing Assessment: Physical Exam Vitals: Blood pressure 110/58, pulse 54, resp. rate 16, height 1.651 m (5' 5), weight 83.6 kg (184lb 3.2 oz). Physical Exam Constitutional: Appearance: Normal appearance. HENT: Head: Normocephalic. Neck: Vascular: No carotid bruit. Cardiovascular: Rate and Rhythm: Normal rate and regular rhythm. Pulmonary: Effort: Pulmonary effort is normal. Breath sounds: Normal breath sounds. Musculoskeletal: Cervical back: Neck supple. Lymphadenopathy: Cervical: No cervical adenopathy. Skin: General: Skin is warm and dry. Neurological: General: No focal deficit present. Mental Status: She is alert and oriented to person, place, and time. Psychiatric: Mood and Affect: Mood normal. Behavior: Behavior normal. Thought Content: Thought content normal. Judgment: Judgment normal. Foot exam: +1/barely palpable dorsalis pedis pulses bilaterally. Good foot care. Intact monofilament sensation bilaterally. Neurological Exam Mental Status Alert. Oriented to person, place, and time. Assessment and Plan Type 2 diabetes: A1c has improved significantly, without hypoglycemia. Fantastic response, we will continue same. Follow-up in 4 months with labs prior. Hypertension: Blood pressure at goal today. Managed by PCP/nephrology. Hyperlipidemia: Lipid panel stable. Continue atorvastatin. documented in this encounterChildren[facility] ColoradoCytox [id number] Instructions* Patient Instructions* Jerrica Whiting MA - 06/12/2022 9:24 AM EST How to Contact your Care Team: Provider: Dr. Chriss Wyman MD Acquisition Cost Estimator: Clarissa Hernandez, SAMUEL documented in this [id number] Miscellaneous Notes* Telephone Encounter - Jesica Peguero Coord - 05/03/2022 12:38 PM EST Spoke to patient she stated she does not feel ready to get started in our program. She said her started the process but then waiting for a tx. She said if she changes her mind she will call us. Ending at this time. * Telephone Encounter - Jesica Forbes - 04/26/2022 3:14 PM EST First message left for patient documented [facility] History of Present illness Narrative* Yan Campbell MD - 04/27/2022 1:17 PM EST Assessment 71 yo F s/p attempted LUE brachiobasilic fistula creation - L basilic vein too small after a very short >3 mm section at the distal upper arm. I discussed options with Ms. Carcamo. She is right-hand dominant, and she has now been catheter dependent for some time. She would similarly require brachiobasilic and likely transposition on the right.With that in mind, she would like left upper extremity graft versus waiting an additional 3-4 months until a BB fistula would be ready. -Plan for LUE AVG insertion after first of the year - 71 yo F s/p attempted LUE brachiobasilic fistula creation - L basilic vein too small after a very short >3 mm section at the distal upper arm. Reports she is doing well. Minimal LUE pain. No weakness or numbness. Past Medical History: Diagnosis Date Anemia Chronic kidney disease (CKD) only one and 1/2 kidney Chronic kidney disease (CKD), active medical management without dialysis, stage 5 (HCC) Diabetes mellitus, type 2 (HCC) Dialysis patient (HCC) Diverticulosis 10/2021 Fibroid Glaucoma Gout H. pylori infection 10/2021 History of stress test 2016 screening and patient reports was normal Hyperlipidemia Hypertension Renal cell carcinoma (HCC) 02/06/2018 Right papillary renal cell carcinoma pT1a, pNX (stage I) s/p right nephrectomy Past Surgical History: Procedure Laterality Date COLONOSCOPY N/A 10/18/2021 Procedure: COLONOSCOPY with polypectomy; Surgeon: Chris Stovall MD; [place] [facility] [place] Service: Gastroenterology CV IR INTERVENTIONAL RADIOLOGY N/A 11/14/2021 Procedure: IR DIALYSIS CATHETER INSERTION TUNNELED; Surgeon: Gerhard Walker MD; Location: IR LAB; Service: Interventional Radiology EGD N/A 10/18/2021 Procedure: ESOPHAGOGASTRODUODENOSCOPY with biopsy and polypectomy; Surgeon: Chris Stovall MD; [place] [facility] [place]; Service: Gastroenterology fatty tumor removed fibroid removed uterine FISTULA ARTERIOVENOUS Left 04/23/2022 Procedure: Attempted LEFT BRACHIOBASILIC FISTULA CREATION; Surgeon: Yan Campbell MD; Location: Main OR; Service: Gen-Vascular HERNIA REPAIR HYSTERECTOMY NEPHRECTOMY PARTIAL ROBOTIC XI STAGE 2 Right 03/26/2018 Procedure: RIGHT ROBOTIC ASSISTED LAPAROSCOPIC PARTIAL NEPHRECTOMY LEVEL 2; Surgeon: Nasim Gaspar MD; Location: [facility] Main OR; Service: Urology Current Outpatient Medications Medication Sig Dispense Refill acetaminophen (Tylenol Extra Strength) 500 MG tablet Take 2 (two) tablets (1,000 mg total) by mouthevery 6 (six) hours as needed for pain . 100 tablet 0 amLODIPine (NORVASC) 10 MG tablet Take 1 (one) tablet (10 mg total) by mouth daily AM . aspirin 81 mg chewable tablet Chew and Swallow 1 (one) tablet (81 mg total) daily AM . atorvastatin (LIPITOR) 40 MG tablet Take 1 (one) tablet (40 mg total) by mouth every morning Reasons: high cholesterol. (Patient taking differently: Take 1 (one) tablet (40 mg total) by mouth Twice aweek AM Reasons: high cholesterol.) 90 tablet 3 carvediloL (COREG) 25 MG tablet TAKE 1 TABLET TWICE DAILY WITH MEALS 180 tablet 1 colchicine 0.6 mg tablet Take 1 (one) tablet (0.6 mg total) by mouth daily AM . dulaglutide (Trulicity) 1.5 mg/0.5 mL Pen Inject 0.5 mL (1.5 mg total) under the skin once a week . FreeStyle Lite Strips strips TEST 3 TIMES DAILY DIRECTED 200 strip 2 furosemide (LASIX) 40 MG tablet 1 tab and 2 tab alternate days . (Patient taking differently: Take 1 (one) tablet (40 mg total) by mouth daily 1 tab and 2 tab alternate days AM Patient takes 1 tab in the AM .) 60 tablet 11 hydrALAZINE (APRESOLINE) 50 MG tablet Take 1 (one) tablet (50 mg total) by mouth 2 (two) times a day . insulin degludec (Tresiba FlexTouch U-200) 200 unit/mL (3 mL) InPn Inject 10 (ten) Units under the skin nightly . (Patient taking differently: Inject 10 (ten) Units under the skin nightly PRN .) 4.5 mL 0 latanoprost (XALATAN) 0.005 % ophthalmic solution PM . predniSONE (DELTASONE) 20 MG tablet PRN . No current facility-administered medications for this visit. Family History Problem Relation Age of Onset Hypertension Mother Brain cancer Mother No Known Problems Father Hypertension Sister Heart failure Sister SISTER Lung cancer Brother Hypertension Brother Non-Hodgkin's Lymphoma Daughter Stroke Daughter Hypertension Daughter Surgical complications Neg Hx Anesthesia problems Neg Hx Heart disease Neg Hx Clotting disorder Neg Hx Deep vein thrombosis Neg Hx Pulmonary embolism Neg Hx Social History Tobacco Use Smoking status: Never Smokeless tobacco: Never Vaping Use Vaping Use: Never used Substance Use Topics Alcohol use: Not Currently Comment: socially Drug use: No ROS Negative except as above BP 131/78 (BP Location: Right arm, Patient Position: Sitting) Comment (BP Location): can't do left side Pulse (!) 57 Ht 5' 6 Wt 83.5 kg (184 lb) BMI 29.70 kg/m Physical Exam General: Alert, awake, no distress CV: Bradycardic Pulm: Normal effort Skin: Warm, dry Vasc: Well healed LUE incision. documented in this [id number] Instructions* Patient Instructions* Grayson Huffman MA - 04/27/2022 12:57 PM EST How to contact your care team: Provider: Yan Adrian, MD NyELISSA Rosenbaum PA Nurse: Lucinda Andersen RN To reschedule office appointments call scheduling [phone]. In case of an emergency please call 911. When in need of refills please call the phone number listed above. Please include medication name, pharmacy name and specify 30 or 90 day supply. Please check with your pharmacy within 24 hours of your request for refill. You must follow up as directed to continue current refills. Thank you! documented in this [id number] Telephone encounter Note* Telephone Encounter - Jennifer Lisa MA - 04/27/2022 10:37 AM EST Patient is requesting a refill of Coreg Last office visit 03/02/22 Next office visit 07/04/22 [id number] Miscellaneous Notes* Telephone Encounter - Jennifer Lisa MA - 04/27/2022 10:37 AM EST Patient is requesting a refill of Coreg Last office visit 03/02/22 Next office visit 07/04/22 * Telephone Encounter - Jennifer Lisa MA - 04/27/2022 10:36 AM EST ----- Message from Keren Joyce sent at 04/27/2022 10:33 AM EST ----- Regarding: Rx refill Contact: Leslie/claudy MEDICATION REFILL REQUEST: PCP: Danny Rose MD Patient called 04/27/22 and is requesting a medication refill for carvediloL (COREG) 25 MG Sig: TAKE 1 TABLET TWICE DAILY WITH MEALS Sent to pharmacy as: carvediloL 25 mg tablet (COREG) E-Prescribing Status: Receipt confirmed by pharmacy (09/05/2021 12:20 PM EDT) . This was confirmed from the current medication list found in the patients chart. Supply Requested: # of days: 90 days Method of receiving: Send to pharmacy Last set of flowsheet rows for OARRS report: OARRS/NARxCHECK Report Received and Assessed: No data found Date controlled substance agreement signed: No data found Date of last drug screen: No data found Functional Assessment: No data found Will this refill be sent to the preferred pharmacy listed below? Yes Preferred pharmacies: [facility]/pharmacy #[id number] AT [place] [address] Pt Call Back Number Patient call back message sent to the primary care clinical pool. Keren Joyce documented in this [id number] Telephone encounter Note* Telephone Encounter - Jennifer Lisa MA - 04/27/2022 10:36 AM EST ----- Message from Keren Joyce sent at 04/27/2022 10:33 AM EST ----- Regarding: Rx refill Contact: Leslie/claudy MEDICATION REFILL REQUEST: PCP: Danny Rose MD Patient called 04/27/22 and is requesting a medication refill for carvediloL (COREG) 25 MG [id number] Sig: TAKE 1 TABLET TWICE DAILY WITH MEALS Sent to pharmacy as: carvediloL 25 mg tablet (COREG) E-Prescribing Status: Receipt confirmed by pharmacy (09/05/2021 12:20 PM EDT) . This was confirmed from the current medication list found in the patients chart. Supply Requested: # of days: 90 days Method of receiving: Send to pharmacy Last set of flowsheet rows for OARRS report: OARRS/NARxCHECK Report Received and Assessed: No data found Date controlled substance agreement signed: No data found Date of last drug screen: No data found Functional Assessment: No data found Will this refill be sent to the preferred pharmacy listed below? Yes Preferred pharmacies: [id number] - [address] AT [facility] [address] [place] [id number] Pt Call Back Number Patient call back message sent to the primary care clinical pool. Keren Joyce [id number] History of Present illness Narrative* Elli Mccartney, ELISSA - 04/16/2022 10:05 AM EST Pre-Operative H&P Assessment and Plan End stage renal disease (HCC) Pt scheduled to undergo a LEFT BRACHIOBASILIC FISTULA CREATION with Dr. Campbell on 04/23/2022. Essential hypertension BP is elevated at this office visit, 163/74. Pt has not taken BP medications yet. Pt villegas been advised to take amlodipine, hydralazine, and carvedilol the morning of surgery with a small sip of water. ECHO 11/2021: Summary 1. Mild left ventricular concentric hypertrophy. 2. Left ventricular systolic function is normal with an ejection fraction by Biplane Method of Discs of 68 %. 3. RV is dilated with normal RV function. 4. There is grade 2 diastolic dysfunction, consistent with impaired relaxation and elevated left atrial pressure. 5. There is mild mitral valve regurgitation. 6. There is mild tricuspid valve regurgitation. 7. There is pulmonary hypertension, estimated right ventricle systolic pressure is 59 mmHg. Stress Test 12/2021: Summary 1. Normal pharmacologic stress SPECT myocardial perfusion imaging study. 2. Normal pharmacologic electrocardiographic portion of stress test. No chest discomfort. No arrhythmias with regadenoson. No evidence of ischemia by EKG criteria. 3. Overall left ventricular systolic function was normal without regional wall motion abnormalities. Gated SPECT imaging reveals normal myocardial wall thickening. Post stress left ventricular ejection fraction is normal, 62 %. Left ventricular cavity size is normal. 4. SPECT images demonstrate homogeneous tracer distribution throughout the myocardium. 5. The stress nuclear myocardial perfusion imaging was normal. No resting imaging was performed. 6. Overall intermediate-risk study based on SCAI criteria (1-3% predicted annual cardiac mortality). Type 2 diabetes 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, with long-term current use of insulin(HCC) Lab Results Component Value Date HGBA1C 4.8 01/26/2022 Well controlled. Pt has been given preoperative insulin instructions. Anemia due to stage 5 chronic kidney disease (HCC) Hemoglobin 9.8 Hematocrit 30.5 Mixed hyperlipidemia Pt is compliant with statin therapy and has been advised to continue this medication perioperatively Preop examination Patient presents for preoperative medical risk stratification. She denies history of [place] , no known cerebrovascular conditions. She reports a greater than 4 mets of functional capacity without symptoms of shortness of breath or chest pain. Chronic conditions appear to be well managed. Previous cardiac testing and notes have been reviewed. Preoperative sleep apnea risk assessment score is 1/3, indicating mild risk factors. Apfel score is 3, suggesting moderate risk for post operative nausea and vomiting. The patient has undergone multiple surgeries in the past, patient reports all of which were uneventful from a cardiac and anesthesia standpoint. Chief Complaint Patient presents with Pre-operative Medical Risk Stratification History of Present Illness Leslie Carcamo is a 71 y.o. female who presents for preoperative medical risk stratification consult at the request of Dr. Campbell prior to LEFT BRACHIOBASILIC FISTULA CREATION. The patient has a past medical history that consists of anemia, ESRD, diabetes, glaucoma, gout, hypertension, hyperlipidemia,and renal cell carcinoma. The patient denies previous complications with anesthesia. The patient denies cardiopulmonary complaints. Blood work has been reviewed. Recent cardiac testing has been reviewed. Pt has been given preoperative medication instruction. Please see below regarding status of active medical conditions and assessment and plan regarding details of preoperative medical risk stratification. Past Medical History: Diagnosis Date Anemia Chronic kidney disease (CKD) only one and 1/2 kidney Chronic kidney disease (CKD), active medical management without dialysis, stage 5 (HCC) Diabetes mellitus, type 2 (HCC) Dialysis patient (HCC) Diverticulosis 10/2021 Fibroid Glaucoma Gout H. pylori infection 10/2021 History of stress test 2016 screening and patient reports was normal Hyperlipidemia Hypertension Renal cell carcinoma (HCC) 02/06/2018 Right papillary renal cell carcinoma pT1a, pNX (stage I) s/p right nephrectomy No past medical history pertinent negatives. Past Surgical History: Procedure Laterality Date COLONOSCOPY N/A 10/18/2021 Procedure: COLONOSCOPY with polypectomy; Surgeon: Chris Stovall MD; Location: [facility] OR; Service: Gastroenterology CV IR INTERVENTIONAL RADIOLOGY N/A 11/14/2021 Procedure: IR DIALYSIS CATHETER INSERTION TUNNELED; Surgeon: Gerhard Walker MD; Location: IR LAB; Service: Interventional Radiology EGD N/A 10/18/2021 Procedure: ESOPHAGOGASTRODUODENOSCOPY with biopsy and polypectomy; Surgeon: Chris Stovall MD; [place] [facility]; Service: Gastroenterology fatty tumor removed fibroid removed uterine HERNIA REPAIR HYSTERECTOMY NEPHRECTOMY PARTIAL ROBOTIC XI STAGE 2 Right 03/26/2018 Procedure: RIGHT ROBOTIC ASSISTED LAPAROSCOPIC PARTIAL NEPHRECTOMY LEVEL 2; Surgeon: Nasim Gaspar MD; Location: [facility] Main OR; Service: Urology Social History Tobacco Use Smoking status: Never Smokeless tobacco: Never Substance Use Topics Alcohol use: Not Currently Comment: socially Family History Problem Relation Age of Onset Hypertension Mother Brain cancer Mother No Known Problems Father Hypertension Sister Heart failure Sister SISTER Lung cancer Brother Hypertension Brother Non-Hodgkin's Lymphoma Daughter Stroke Daughter Hypertension Daughter Surgical complications Neg Hx Anesthesia problems Neg Hx Heart disease Neg Hx Clotting disorder Neg Hx Deep vein thrombosis Neg Hx Pulmonary embolism Neg Hx Prior to Admission medications taking for visit date 04/16/22 Medication Sig Taking? Discontinued? amLODIPine (NORVASC) 10 MG tablet Take 1 (one) tablet (10 mg total) by mouth daily AM . Yes aspirin 81 mg chewable tablet Chew and Swallow 1 (one) tablet (81 mg total) daily AM . Yes atorvastatin (LIPITOR) 40 MG tablet Take 1 (one) tablet (40 mg total) by mouth every morning Reasons: high cholesterol. Patient taking differently: Take 1 (one) tablet (40 mg total) by mouth Twice a week AM Reasons: high cholesterol. Yes carvediloL (COREG) 25 MG tablet TAKE 1 TABLET TWICE DAILY WITH MEALS Yes colchicine 0.6 mg tablet Take 1 (one) tablet (0.6 mg total) by mouth daily AM . Yes dulaglutide (Trulicity) 1.5 mg/0.5 mL Pen Inject 0.5 mL (1.5 mg total) under the skin once a week .Yes FreeStyle Lite Strips strips TEST 3 TIMES DAILY DIRECTED Yes furosemide (LASIX) 40 MG tablet 1 tab and 2 tab alternate days . Patient taking differently: Take 1 (one) tablet (40 mg total) by mouth daily 1 tab and 2 tab alternate days AM Patient takes 1 tab in the AM . Yes hydrALAZINE (APRESOLINE) 50 MG tablet Take 1 (one) tablet (50 mg total) by mouth 2 (two) times a day . Yes insulin degludec (Tresiba FlexTouch U-200) 200 unit/mL (3 mL) InPn Inject 10 (ten) Units under the skin nightly . Patient taking differently: Inject 10 (ten) Units under the skin nightly PRN . Yes latanoprost (XALATAN) 0.005 % ophthalmic solution PM . Yes predniSONE (DELTASONE) 20 MG tablet PRN . Yes No Known Allergies Review of Systems Constitution: (negative) HENT: abnormal dentition Eyes: (negative) Respiratory: (negative) Cardiovascular: (negative) - Exercise capacity: Greater than 4 METS Gastrointestinal: (negative) Genitourinary: (negative) Musculoskeletal: (negative) Skin: (negative) Neurological: (negative) Hematological: (negative) Physical Exam BP (!) 163/74 Pulse (!) 58 Ht 5' 6 Wt 83 kg (183 lb) SpO2 97% BMI 29.54 kg/m Constitutional: She is oriented to person, place, and time. She appears well developed and well-nourished. Right subclavian dialysis access Skin: Skin is warm, dry and intact. Eyes: Conjunctivae and EOM are normal. Pupils are equal, round, and reactive to light. HENT: Head: Normocephalic and atraumatic. Right Ear: External ear normal. Left Ear: External ear normal. Nose: Nose normal. Mouth/Throat: Abnormal dentition. Neck: Normal range of motion. No tracheal deviation present. Cardiovascular: Normal rate and regular rhythm. Pulmonary/Chest: Effort normal and breath sounds normal. Abdominal: Soft. no tenderness Musculoskeletal: Normal range of motion. She exhibits no edema. Neurological: She is alert and oriented to person, place, and time. Psychiatric: She has a normal mood and affect. Her behavior is normal. Cognition and memory are normal. Data Preprocedure Sleep Apnea Assessment - Mild Risk (1/3) Sleep Apnea in the patient's Active Problem List or Medical History: no 1. History of apparent airway obstruction during sleep: (1 point for this category) Do you snore frequently, or snore loud enough to be heard through a closed door?: yes Do you awaken from sleep with a choking sensation or have periods during sleep when someone has observed you pausing between breaths?: no 2. Somnolence of the patient: (1 point for this category) Do you find yourself frequently sleepy despite adequate hours of sleep the night before?: no Do you fall asleep easily while: watching TV, reading, riding in or driving a car?: no 3. Predisposing physician characteristics: (1 point for this category, 2 points if the BMI ? 40) BMI (Calculated): 29.6 Neck Circumference (inches): 15 inches Recent Results (from the past 1825 days) ECHOCARDIOGRAM COMPLETE 11/15/2021 (Final) Status: Normal Narrative Patient Info Name: LESLIE CARCAMO Age: 71 years : 1950 Gender: Female Ht: 168 cm Wt: 95 kg BSA: 2.14 m2 HR: 66 bpm BP: 179 / 83 mmHg Heart Rhythm: Sinus Rhythm Technical Quality: Fair Exam Date: 11/15/2021 8:07 AM Patient Status: Inpatient Medical Anthropology Director: Ashley Brown RCDS Exam Type: ECHOCARDIOGRAM COMPLETE Study Info Indications R07.9 - Chest pain, unspecified Referring Physician: AYANA Sears; [id number] BMI: 33.73 kg/m2 Summary 1. Mild left ventricular concentric hypertrophy. 2. Left ventricular systolic function is normal with an ejection fraction by Biplane Method of Discs of 68 %. 3. RV is dilated with normal RV function. 4. There is grade 2 diastolic dysfunction, consistent with impaired relaxation and elevated left atrial pressure. 5. There is mild mitral valve regurgitation. 6. There is mild tricuspid valve regurgitation. 7. There is pulmonary hypertension, estimated right ventricle systolic pressure is 59 mmHg. History/Risk Factors Hypertension: Yes Dyslipidemia: Yes Obesity: Yes Renal Disease: Yes Diabetes Mellitus: Type II Tobacco Use: Never Dialysis: Current History/Risk Factors Renal cell carcinoma. Procedure(s): Complete two-dimensional, color flow and Doppler transthoracic echocardiogram is performed. Left Ventricle Left ventricular chamber dimension is normal. Left ventricular systolic function is normal with an ejection fraction by Biplane Method of Discs of 68 %. Mild left ventricular concentric hypertrophy. Left ventricular segmental wall motion is normal. There is grade 2 diastolic dysfunction, consistent with impaired relaxation and elevated left atrial pressure. Right Ventricle RV is dilated with normal RV function. Left Atria Left atrial chamber is mildly enlarged with a left atrial volume index of 35 ml/m2 by BP MOD. Right Atria Right atrial chamber dimension is enlarged. Aortic Valve The aortic valve is trileaflet. There is no aortic valve sclerosis. There is no aortic valve stenosis. There is no aortic valve regurgitation. Pulmonic Valve The pulmonic valve is normal. There is no pulmonic valve stenosis. There is trace pulmonic regurgitation. Mitral Valve The mitral valve has normal leaflets. There is no mitral valve stenosis. There is mild mitral valve regurgitation. Tricuspid Valve The tricuspid valve leaflets are normal. There is no significant tricuspid valve stenosis. There is mild tricuspid valve regurgitation. There is pulmonary hypertension, estimated right ventricle systolic pressure is 59 mmHg. Pericardium/Pleural The pericardium appears normal. There is no pericardial effusion. Inferior Vena Cava Dilated inferior vena cava with <50% collapse upon inspiration consistent with elevated right atrial pressure. Aorta The aortic measurements are indexed to age and body surface area. The aortic root is normal measuring 2.9 cm with an index of 1.3 cm/m2. The proximal ascending aorta is normal measuring 3.7 cm with an index of 1.7 cm/m2. Wall Motion Scoring Wall Motion Scoring Index: 1.00 Left Ventricular Outflow Tract Name Value Normal LVOT 2D LVOT Diameter 2.0 cm LVOT Doppler LVOT Peak Velocity 1.2 m/s LVOT Peak Gradient 6 mmHg LVOT Mean Gradient 3 mmHg LVOT VTI 30 cm LVOT VTI/AV VTI Ratio 0.7 LVOT Stroke Volume 92 ml LVOT Stroke Index 43.25 ml/m2 Pulmonic Valve Name Value Normal RVOT Doppler RVOT Peak Velocity 93 cm/s RVOT Peak Gradient 3 mmHg RVOT Mean Gradient 2 mmHg RVOT VTI 21 cm PV Doppler PV Peak Velocity 1.11 m/s PV Peak Gradient 4 mmHg PV Mean Gradient 3 mmHg PV VTI 26 cm PV Regurgitation Doppler CT Peak Gradient [address] Peak End Diastolic Velocity 113 cm/s Mitral Valve Name Value Normal MV Doppler MV Peak Velocity 1.44 m/s MV Peak Gradient 8 mmHg MV Mean Gradient 2 mmHg MV Decel Stokes 584 cm/s2 MV PHT 53 ms MV Area (PHT) 4.1 cm2 4.0-5.0 MV Area (Cont Eq VTI) 2.7 cm2 MV Area Index (Cont Eq VTI) 1.28 cm2/m2 MV Regurgitation Doppler MR VTI 206 cm MR PISA Radius 0.7 cm MR PISA Alias Velocity 31 cm/s MR ERO (PISA) 0.1 cm2 MR Volume (PISA) 30 ml MV Diastolic Function MV E Peak Velocity 1.07 m/s MV A Peak Velocity 0.75 m/s MV E/A 1.4 MV Decel Time 183 ms MV Annular TDI MV Septal e' Velocity 7.2 cm/s >=8.0 MV E/e' (Septal) 14.7 <=8.0 MV Lateral e' Velocity 6.3 cm/s >=10.0 MV E/e' (Lateral) 17.0 <=8.0 MV e' Average 6.75 cm/s MV E/e' (Average) 15.9 Tricuspid Valve Name Value Normal TV Regurgitation Doppler TR Peak Velocity 3.32 m/s TR Peak Gradient 43 mmHg Estimated PAP/RSVP RA Pressure 15 mmHg <=5 PA Systolic Pressure 59 mmHg <=36 RV Systolic Pressure 59 mmHg <36 Aorta Name Value Normal Ascending Aorta Ao Root Diameter (2D) 2.9 cm 2.7-3.3 Ao Root Diam Index (2D) 1.3 cm/m2 1.6-2.0 Prox Asc Ao Diameter 3.7 cm 2.3-3.1 Prox Asc Ao Diameter Index 1.7 cm/m2 1.3-1.9 Venous Name Value Normal IVC/SVC IVC Diameter (Exp 2D) 2.9 cm <=2.1 Aortic Valve Name Value Normal AV Doppler AV Peak Velocity 1.8 m/s AV Peak Gradient 11 mmHg AV Mean Gradient 6 mmHg AV VTI 41 cm AV Area (Cont Eq VTI) 2.2 cm2 AV Area Index (Cont Eq VTI) 1 cm2/m2 AV Area (Cont Eq Cooper) 2.1 cm2 AV Area Index (Cont Eq Cooper) 1 cm2/m2 LVOT Vmax/AV Vmax 0.69 LVOT VTI/AV VTI Ratio 0.7 AV Regurgitation 2D LVOT Area 3.1 cm2 Ventricles Name Value Normal LV Dimensions 2D/MM IVS Diastolic Thickness (2D) 1.1 cm 0.6-0.9 LVID Diastole (2D) 5.0 cm 3.8-5.2 LVIW Diastolic Thickness (2D) 1.1 cm 0.6-0.9 LVID Systole (2D) 3.1 cm 2.2-3.5 LVOT Diameter 2.0 cm LV Mass (2D Cubed) 212.96 g 67.00-162.00 LV Mass Index (2D Cubed) 100 g/m2 43-95 Relative Wall Thickness (2D) 0.46 <=0.42 LV Fractional Shortening/Ejection Fraction 2D/MM LV Fractional Shortening (2D) 38 % 27-45 LV EF (2D Teicholz) 68 % 54-74 LV Diastolic Volume (4C MOD) 73 ml LV Systolic Volume (4C MOD) 24 ml LV EF (4C MOD) 67 % LV Diastolic Volume (2C MOD) 85 ml LV Systolic Volume (2C MOD) 26 ml LV EF (2C MOD) 70 % LV Diastolic Volume (BP MOD) 80 ml 46-106 LV Diastolic Volume Index (BP MOD) 38 ml/m2 29-61 LV Systolic Volume (BP MOD) 26 ml 14-42 LV Systolic Volume Index (BP MOD) 12 ml/m2 8-24 LV EF (BP MOD) 68 % 55-70 LV Diastolic Length (4C) 7.5 cm LV Systolic Length (4C) 6.2 cm LV Stroke Volume (4C MOD) 48 ml LV SI (4C MOD) 22.63 ml/m2 [Narrative TRUNCATED] Recent Results (from the past 1825 days) NM MYOCARDIAL PERFUSION SINGLE - STRESS ONLY 12/18/2021 (Final) Status: Normal Narrative Patient Info Name: LESLIE CARCAMO Age: 71 years : 1950 Gender: Female Ht: 168 cm Wt: 78 kg BSA: 1.92 m2 HR: 59 bpm BP: 142 / 69 mmHg Heart Rhythm: Bradycardia Exam Date: 12/18/2021 10:00 AM Patient Status: Recurring patient Any Known Allergies: None Known Station Inspector: Jeanette Puente, RT(N), JERALD, LYN, Papito Puente RT(N), NCT Exam Type: NM MYOCARDIAL PERFUSION SINGLE - STRESS ONLY Study Info Indications - Chest pain Nuclear Physician: Ashley Howe MD, STEPHANE Referring Physician: DR. ROSE; [id number] Primary Nurse: Bebe Bennett RN Supervising Stress Physician: Ashley Howe MD, STEPHANE BMI: 27.48 kg/m2 Summary 1. Normal pharmacologic stress SPECT myocardial perfusion imaging study. 2. Normal pharmacologic electrocardiographic portion of stress test. No chest discomfort. No arrhythmias with regadenoson. No evidence of ischemia by EKG criteria. 3. Overall left ventricular systolic function was normal without regional wall motion abnormalities. Gated SPECT imaging reveals normal myocardial wall thickening. Post stress left ventricular ejection fraction is normal, 62 %. Left ventricular cavity size is normal. 4. SPECT images demonstrate homogeneous tracer distribution throughout the myocardium. 5. The stress nuclear myocardial perfusion imaging was normal. No resting imaging was performed. 6. Overall intermediate-risk study based on SCAI criteria (1-3% predicted annual cardiac mortality). History/Risk Factors Hypertension: Yes Dyslipidemia: Yes Diabetic Therapy: Oral Myocardial Infarction ([place]): No Obesity: Yes Renal Disease: Yes Diabetes Mellitus: Type II COPD: No Tobacco Use: Never Dialysis: Current History/Risk Factors Patient off home medications prior to study. Asthma: NO Caffeine in Last 24 Hours: No Prior Interventions Pacemaker: No PCI: No CABG: No ICD: No Stress ECG Details Protocol: LEXISCAN Rest HR: 59 bpm Peak HR: 79 bpm Rest Sys BP: 142 mmHg Peak Sys BP: 149 mmHg Max Pred HR: 150 bpm % Max Pred HR: 53 % Target HR: 128 bpm Max RPP: 11,771 bpm*mmHg Target HR Summary: Normal HR response to Lexisan BP Response: Normal blood pressure response Termination Reason: At the end of protocol Cardiac Symptoms: None Total Time: 5 min : 0 sec Rest Hancock BP: 69 mmHg Peak Hancock BP: 68 mmHg Total Dose: 0.4 mg Resting ECG Sinus bradycardia. Otherwise normal ECG. Stress ECG No abnormal ST/T wave changes with exercise. Arrhythmias Occasional PACs. Occasional PVCs. Exercise Tolerance Unable to exercise due to difficulty walking. Stress Summary Normal pharmacologic electrocardiographic portion of stress test. No chest discomfort. No arrhythmias with regadenoson. No evidence of ischemia by EKG criteria. Radiopharmaceutical: Tc-99m Tetrofosmin Administration Site: IV - right antecubital Administered By: Papito Puente RT(N), NCT Camera Used: Hapzing D-SPECT Image Protocol Protocol: Selective Stress Only Stress Radiopharmaceutical Dose: 6.4 mCi Imaging Date & Time: 12/18/2021 11:00 AM Patient Position: upright and supine Injection Date & Time: 12/18/2021 10:00 AM Procedure(s): Gated SPECT images acquired upright and supine post Tetrofosmin injection at peak stress. Resting images were not required. [facility] [employer]QPS application was utilized for processing and interpretation. SPECT Results Perfusion Findings SPECT images demonstrate homogeneous tracer distribution throughout the myocardium. The stress nuclear myocardial perfusion imaging was normal. No resting imaging was performed. Summed Stress Score: 0 Perfusion Quantitative Results Stress Extent Global Stress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 1 tab and 2 tab alternate days . (Patient taking differently: Take 1 (one) tablet (40 mg total) by mouth daily 1 tab and 2 tab alternate days .) hydrALAZINE (APRESOLINE) 50 MG tablet Take 1 tablet by mouth 3 (three) times a day . insulin degludec (Tresiba FlexTouch U-200) 200 unit/mL (3 mL) InPn Inject 10 (ten) Units under the skin nightly . latanoprost (XALATAN) 0.005 % ophthalmic solution methoxy peg-epoetin beta (MIRCERA INJ) 75 mcg by intravenous push route . predniSONE (DELTASONE) 20 MG tablet 1 TAB BY MOUTH DAILY FOR 3 DAYS FOR SEVERE GOUT Histories: Past Medical History: Diagnosis Date Chronic kidney disease (CKD) only one and 1/2 kidney Chronic kidney disease (CKD), active medical management without dialysis, stage 5 (HCC) Diabetes mellitus, type 2 (HCC) Diverticulosis 10/2021 Fibroid Glaucoma Gout H. pylori infection 10/2021 History of stress test 2016 screening and patient reports was normal Hyperlipidemia Hypertension Renal cell carcinoma (HCC) 02/06/2018 Right papillary renal cell carcinoma pT1a, pNX (stage I) s/p right nephrectomy Past Surgical History: Procedure Laterality Date COLONOSCOPY N/A 10/18/2021 Procedure: COLONOSCOPY with polypectomy; Surgeon: Chris Stovall MD; [place] [facility] [place] Service: Gastroenterology CV IR INTERVENTIONAL RADIOLOGY N/A 11/14/2021 Procedure: IR DIALYSIS CATHETER INSERTION TUNNELED; Surgeon: Gerhard Walker MD; Location: IR LAB; Service: Interventional Radiology EGD N/A 10/18/2021 Procedure: ESOPHAGOGASTRODUODENOSCOPY with biopsy and polypectomy; Surgeon: Chris Stovall MD; [place] [facility] [place]; Service: Gastroenterology fatty tumor removed fibroid removed uterine HERNIA REPAIR HYSTERECTOMY NEPHRECTOMY PARTIAL ROBOTIC XI STAGE 2 Right 03/26/2018 Procedure: RIGHT ROBOTIC ASSISTED LAPAROSCOPIC PARTIAL NEPHRECTOMY LEVEL 2; Surgeon: Nasim Gaspar MD; Location: [facility] Main OR; Service: Urology Family History Problem Relation Age of Onset Hypertension Mother Brain cancer Mother No Known Problems Father Hypertension Sister Lung cancer Brother Hypertension Brother Non-Hodgkin's Lymphoma Daughter Stroke Daughter Hypertension Daughter Surgical complications Neg Hx Anesthesia problems Neg Hx Heart disease Neg Hx Clotting disorder Neg Hx Deep vein thrombosis Neg Hx Pulmonary embolism Neg Hx Social History Tobacco Use Smoking status: Never Smokeless tobacco: Never Vaping Use Vaping Use: Never used Substance Use Topics Alcohol use: Not Currently Comment: socially Drug use: No Outpatient Medications as of 01/26/2022 Medication Sig amLODIPine (NORVASC) 10 MG tablet Take 1 tablet by mouth daily . aspirin 81 mg chewable tablet Chew and Swallow 81 mg daily . atorvastatin (LIPITOR) 40 MG tablet Take 1 (one) tablet (40 mg total) by mouth every morning Reasons: high cholesterol. (Patient taking differently: Take 1 (one) tablet (40 mg total) by mouth Twice aweek Reasons: high cholesterol.) carvediloL (COREG) 25 MG tablet TAKE 1 TABLET TWICE DAILY WITH MEALS colchicine 0.6 mg tablet Take 1 (one) tablet (0.6 mg total) by mouth daily . dulaglutide (Trulicity) 1.5 mg/0.5 mL Pen Inject 1.5 mg under the skin once a week . FreeStyle Lite Strips strips TEST 3 TIMES DAILY DIRECTED furosemide (LASIX) 40 MG tablet 1 tab and 2 tab alternate days . (Patient taking differently: Take 1 (one) tablet (40 mg total) by mouth daily 1 tab and 2 tab alternate days .) hydrALAZINE (APRESOLINE) 50 MG tablet Take 1 tablet by mouth 3 (three) times a day . insulin degludec (Tresiba FlexTouch U-200) 200 unit/mL (3 mL) InPn Inject 10 (ten) Units under the skin nightly . latanoprost (XALATAN) 0.005 % ophthalmic solution methoxy peg-epoetin beta (MIRCERA INJ) 75 mcg by intravenous push route . predniSONE (DELTASONE) 20 MG tablet 1 TAB BY MOUTH DAILY FOR 3 DAYS FOR SEVERE GOUT No Known Allergies ROS Negative, except as above Overview of Problems Addressed: Problem Stage 4 Chronic Kidney Disease (Hcc) Objective: Physical Exam Vitals: Vitals: 01/26/22 0953 01/26/22 0957 BP: 139/80 129/80 BP Location: Right arm Left arm Patient Position: Sitting Sitting Pulse: 63 61 Weight: 78 kg (172 lb) Height: 167.6 cm (66) General: Alert, awake, no distress HEENT: Tunneled line, R chest CV: RRR Pulm: Normal effort Abd: ND Extr: No LE edema Skin; Warm, dry Neuro: Alert and oriented Psych: Appropriate mood and affect Vasc: Palpable R radial pulse LABS/IMAGING: Vein mapping - right basilic vein only appropriate dialysis conduit 1. Stage 4 chronic kidney disease (HCC) Yan Campbell MD documented in this [id number] Evaluation + Plan note* Assessment & Plan Note - Yan Campbell MD - 01/26/2022 10:17 AM EDTAssociated Problem(s): Stage 4 chronic kidney disease (HCC) To OR, 02/05 - RUE AVF creation (likely BB, first stage) [id number] Miscellaneous Notes* Assessment & Plan Note - Yan Campbell MD - 01/26/2022 10:17 AM EDTAssociated Problem(s): Stage 4 chronic kidney disease (HCC) To OR, 02/05 - RUE AVF creation (likely BB, first stage) documented in this [id number] Instructions* Patient Instructions* Deric Hernandez MA - 01/26/2022 9:54 AM EDT How to contact your care team: Provider: MD Willis Carlin CNP Jill Bender, PA Nurse: Lucinda Andersen RN To reschedule office appointments call scheduling [phone]. In case of an emergency please call 911. When in need of refills please call the phone number listed above. Please include medication name, pharmacy name and specify 30 or 90 day supply. Please check with your pharmacy within 24 hours of your request for refill. You must follow up as directed to continue current refills. Thank you! documented in this [id number] History of Present illness Narrative* Ras Wu - 01/18/2022 3:45 PM EDT Pierre placed on patient's upper (Left) arm without difficulty. FAQ Sheet reviewed and given to patient. Patient instructed on the care and risks of the sensor. Blood glucose log reviewed and given to patient. Patient instructed to continue to check blood sugar as directed. Patient voiced understanding and will call the clinic with any questions or concerns. Lot # [id number] Serial # [id number] Expiration date: 05/12/2022 [facility] History of Present illness Narrative* Nohemy Weiss RN - 01/17/2022 1:15 PM EDT Pre Transplant Clinic Appointment Patient seen in clinic on this day with support person and by Dr. Handy and this coordinator. Watch education video? yes Demographics: Highest level of education: 12th Working for income? No retired [place] citizen? yes History: Review past medical history? yes Heart attack? no Stroke? no Blood clots? no Cancer (including skin) no Seizures? no Diabetes? yes Review past surgical history? yes Review of Systems Pulmonary: Shortness of Breath, coughing, wheezing: negative Cardiac: Chest pain, Tightness, Palpitations: negative Neuro: Numbness, Tingling, dizziness, lightheadedness: positive - after dialysis HENT: Congestion, sinus pain/pressure, sore throat, trouble swallowing, dental problems: negative GI: Nausea, vomiting, unintended weight loss/gain, abdominal pain/ distension, diarrhea, blood in stool: negative : Hesitancy, pain, pressure, hematuria, frequency: negative If urinating - how much? daily Skin: Active wounds, bruising: negative Muscular: Pain/cramps in legs, weakness, any assistive devices?: negative Psychosocial: Behavior problems, sleep problems, suicidal ideation: negative Colonoscopy up to date? yes Where? [facility] Mammogram up to date? no Where? Needs to updated Consents completed? yes Patient and support person provided with link to review education video prior to evaluation appointment. Patient and support person both asked to review the grimes points of the education video and given the opportunity to ask questions. No barriers to learning for patient or support person. Patient asked to fill out all electronic and paper forms to completion. Educational video covering: *Indications and contraindications for kidney transplant *Alternative treatments *Risks and benefits of transplant *Kidney allocation system *What to do while on the waitlist *Being called in for transplant *Surgical process and post-transplant follow up *Facts about living donation and donor exchange *Immunosuppression and post clinic and lab schedule *One year survival data from Scientific Registry for Transplant Specific *Donor disease transmission risk factors *Living donor risks and complications Patient verbalized understanding of transplant process. Patient stated understanding that all testing is needed as part of transplant evaluation and may be discussed with the transplant team. * Laine Handy MD - 01/17/2022 1:15 PM EDT Pre-Tx Evaluation Kidney 01/18/2022 Leslie Carcamo [id number] Chief Complaint: Chief Complaint Patient presents with Kidney Recipient Evaluation HPI: I saw Leslie Carcamo in our transplant office for a pre-kidney transplant visit. She is not on dialysis yet. ESRD due to DM . Still making urine . No potential living donor . Past Medical History: Diagnosis Date CKD (chronic kidney disease) stage 4, GFR 15-29 ml/min COPD (chronic obstructive pulmonary disease) Diabetes mellitus, type 2 Gout H. pylori infection Hyperlipidemia Hypertension Obesity Renal cell carcinoma of right kidney 2018 Right renal mass 02/06/2018 Past Surgical History: Procedure Laterality Date NEPHRECTOMY Right 03/26/2018 partial HERNIA REPAIR HYSTERECTOMY TUMOR REMOVAL Social History Social History Socioeconomic History Marital status: Spouse name: Not on file Number of children: Not on file Years of education: Not on file Highest education level: Not on file Occupational History Not on file Tobacco Use Smoking status: Never Smoker Smokeless tobacco: Never Used Vaping Use Vaping Use: Never used Substance and Sexual Activity Alcohol use: Not Currently Drug use: Never Sexual activity: Not on file Other Topics Concern Not on file Social History Narrative Not on file Social Determinants of Health Financial Resource Strain: Not on file Food Insecurity: Not on file Transportation Needs: Not on file Physical Activity: Not on file Stress: Not on file Social Connections: Not on file Intimate Partner Violence: Not on file Housing Stability: Not on file Family History Problem Relation Age of Onset Diabetes Daughter Medications: Current Outpatient Medications Medication Sig Dispense Refill amLODIPine 10 MG tablet Take 1 tablet by mouth daily. aspirin EC [address] Take 81 mg by mouth daily. atorvastatin 40 MG tablet Take 40 mg by mouth daily. Calcium Carbonate-Vitamin D (Oyster Shell Calcium/D) 500-200 MG-UNIT tablet TAKE 1 (ONE) TABLET BY MOUTH 2 (TWO) TIMES A DAY WITH MEALS . carveDILOL 25 MG tablet Take 25 mg by mouth 2 times daily with meals. Dulaglutide (Trulicity) 1.5 MG/0.5ML Solution Pen-injector injection Inject 0.5 mL under the skin once a week. 8 mL 1 furOSEmide 40 MG tablet Take 40 mg by mouth daily. glucose blood test strips (FREESTYLE LITE) Strip strip 1 strip by Instructed route 2 times daily. 100 strip 3 glucose blood test strips (FREESTYLE TEST STRIPS) Strip strip Use to check blood sugar twice daily. Please dispense with lancets. 100 strip 6 GLUCOSE MONITOR LANCETS PRESCRIPTION Use to test blood sugar twice daily 100 Each 11 hydrALAZINE 50 MG tablet Take 1 tablet by mouth Three times a day. Insulin Degludec (Tresiba FlexTouch) 100 UNIT/ML Solution Pen-injector injection Inject 10 Units under the skin at bedtime. 3 mL 3 latanoprost 0.005 % Solution ophthalmic solution multivitamin tablet Take 1 tablet by mouth daily. No current facility-administered medications for this visit. Allergies: Patient has no known allergies. Review of Systems: Physical Exam Vital Signs: BP 159/58 (BP Location: Right arm, BP Position: Sitting) Pulse 51 Temp 97.1 F (36.2 C) (Temporal) Ht 1.676 m (5' 6) Wt 79.1 kg (174 lb 6.4 oz) Comment: wc- 40 BMI 28.15 kg/m Smoking Status Never Smoker Body mass index is 28.15 kg/m . General: Well-developed, well-nourished. No acute distress HEENT: Atraumatic, normocephalic, extra ocular muscles intact. No scleral icterus. Oropharynx is clear without mucosal lesions (ulcers), No scalp or ear lesions. Neck: without masses Heart: regular rate and rhythm Lungs: Clear Abdomen: Soft, non-tender, non-distended, positive bowel sounds. No pain Genitalia: appropriate Skin: no lesions Lymph: no adenopathy Neuro: Alert and oriented to person, place and time; Motor and sensory grossly intact, Ambulation normal Extremities: Upper and Lower extremities non-tender, no peripheral edema Assessment Leslie Carcamo is a 71 y.o. female who presents to the [facility] pre-transplant clinic for evaluation. Plan: - the pt want to think about kidney transplant before proceeding with evaluation. - if she want to proceed we will order: - stress, echo . - 6 min walk . - abdomen pelvic ct scan I have spent over 60 minutes including at least 30 minutes face to face with patient and family, I reviewed and/or edited the documented review of systems, past medical history, family and social histories, medications, & allergies taken by our implementation coordinator noted for today s visit andhad a detailed discussion with the patient. All her questions were answered. documented in this encounterU [facility] Instructions* Patient Instructions* Nohemy Weiss RN - 01/17/2022 1:15 PM EDT Today, you were evaluated by Dr. Laine Handy MD and your coordinator Nohemy Weiss in order to start your evaluation as a potential kidney transplant recipient. For your chest x-ray, please take the elevator to the second floor, turn right down the hallway andgo through the double doors. Radiology will be on the left side. Once that is complete today's appointment is finished. Items Required for Completion Prior to Patient Selection Committee: Transplant Social Work: Before you leave the clinic, please stop at the supervisor front and schedule this appointment or call [phone] Option 1. Diagnostic Tests The following orders have been placed. To schedule, please call [phone]. Ct abd/pelvis without contrast Pulmonary function testing with 6 minute walk Your Health & Wellness Appointments: Please work with your Primary Care Provider (PCP) to schedule these tests when appropriate, and contact your Wrapper Stemmer Operator upon completion. Colonoscopy Mammogram PAP Smear Pre-Kidney Transplant [facility] It is the expectation that all tests, including your health and wellness visits, will be completed within 90 days from this visit. Failure to complete required testing in a timely manner may result in early termination of your candidacy as a potential kidney transplant recipient. Once all of the required testing listed below has been completed, I will contact you regarding a potential date your candidacy will be presented to the Patient Selection Committee. A final determination of candidacy will be made by our Patient Selection Committee and you will be notified of the decision on that date. Nohemy BHANDARI, RN Pre-Wrapper Stemmer Operator [facility] documented in this encounterSamar[facility]-12-[facility]22 History of Present illness Narrative* Danny Rose MD - 12/22/2021 8:14 AM EDT I was present with the medical student for the service. I personally verified the history of present illness and performed the physical examination and medical decision making. I have verified all of the medical students documentation for this encounter. * Grecia Shantanu - 12/21/2021 3:47 PM EDT Leslie Carcamo is a 71 y.o. female Assessment/Plan: Problem List Items Addressed This Visit Other Gout - Primary Chronic, flares controlled with prednisone. Pt currently does not have a flare. Refill today. Relevant Medications predniSONE (DELTASONE) 20 MG tablet Pain of left upper extremity Acute. Most likely strain of left triceps muscle due to location of tenderness running from axilla to elbow. Less likely dislocation of shoulder or fracture due to lack of guarding or hesitancy on exam. No imaging is needed at this time. Counseled pt to avoid lying on the left side and use a heating pad for relief. Return for Next scheduled follow up. Leslie Carcamo is a 71 y.o. female who presents for No chief complaint on file. ANDI Nelson is a 71 y/o female who presents for left axillary pain. Pain began 5-6 weeks ago. Starts in left axilla and moves down toward elbow. Pain comes and goes. Aggravated when lying on her left side. No relief with rubbing alcohol, icy hot patches or Tylenol. Describes pain as raw and sore. 5/10 pain. She recently started dialysis 3/week. She feels that this is too much and would like to decrease the number of sessions because she is feeling sick after treatments. She will need to talk to nephrology to look into this. She would like a refill of prednisone for gout flares. Patient Active Problem List Diagnosis H/O partial nephrectomy Stage 4 chronic kidney disease (HCC) Anemia COAG (chronic open-angle glaucoma) Dry eyes, bilateral Essential hypertension Epiphora, unspecified as to cause Mixed hyperlipidemia Type 2 diabetes mellitus without retinopathy (HCC) Chronic midline low back pain without sciatica Bradycardia Class 1 obesity due to excess calories with serious comorbidity and body mass index (BMI) of 30.0 to 30.9 in adult Type 2 diabetes 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, with long-term current use of insulin(HCC) Gout Renal cell carcinoma (HCC) Anemia due to stage 4 chronic kidney disease (HCC) Chest pain Pain of left upper extremity Past Surgical History: Procedure Laterality Date COLONOSCOPY N/A 10/18/2021 Procedure: COLONOSCOPY with polypectomy; Surgeon: Chris Stovall MD; [place] [facility] [place] Service: Gastroenterology CV IR INTERVENTIONAL RADIOLOGY N/A 11/14/2021 Procedure: IR DIALYSIS CATHETER INSERTION TUNNELED; Surgeon: Gerhard Walker MD; Location: IR LAB; Service: Interventional Radiology EGD N/A 10/18/2021 Procedure: ESOPHAGOGASTRODUODENOSCOPY with biopsy and polypectomy; Surgeon: Chris tSovall MD; [place] [facility] [place]; Service: Gastroenterology fatty tumor removed fibroid removed uterine HERNIA REPAIR HYSTERECTOMY NEPHRECTOMY PARTIAL ROBOTIC XI STAGE 2 Right 03/26/2018 Procedure: RIGHT ROBOTIC ASSISTED LAPAROSCOPIC PARTIAL NEPHRECTOMY LEVEL 2; Surgeon: Nasim Gaspar MD; Location: [facility] Main OR; Service: Urology Family History Problem Relation Age of Onset Hypertension Mother Brain cancer Mother No Known Problems Father Hypertension Sister Lung cancer Brother Hypertension Brother Non-Hodgkin's Lymphoma Daughter Stroke Daughter Hypertension Daughter Surgical complications Neg Hx Anesthesia problems Neg Hx Heart disease Neg Hx Clotting disorder Neg Hx Deep vein thrombosis Neg Hx Pulmonary embolism Neg Hx Social History Tobacco Use Smoking status: Never Smokeless tobacco: Never Vaping Use Vaping Use: Never used Substance Use Topics Alcohol use: Not Currently Comment: socially Drug use: No Current Outpatient Medications Medication Sig Dispense Refill amLODIPine (NORVASC) 10 MG tablet Take 1 tablet by mouth daily . aspirin 81 mg chewable tablet Chew and Swallow 81 mg daily . atorvastatin (LIPITOR) 40 MG tablet Take 1 (one) tablet (40 mg total) by mouth every morning Reasons: high cholesterol. (Patient taking differently: Take 40 mg by mouth Twice a week Reasons: high cholesterol.) 90 tablet 3 carvediloL (COREG) 25 MG tablet TAKE 1 TABLET TWICE DAILY WITH MEALS 180 tablet 1 dulaglutide (Trulicity) 1.5 mg/0.5 mL Pen Inject 1.5 mg under the skin once a week . FreeStyle Lite Strips strips TEST 3 TIMES DAILY DIRECTED 200 strip 2 furosemide (LASIX) 40 MG tablet 1 tab and 2 tab alternate days . (Patient taking differently: Take 40 mg by mouth daily 1 tab and 2 tab alternate days .) 60 tablet 11 hydrALAZINE (APRESOLINE) 50 MG tablet Take 1 tablet by mouth 3 (three) times a day . insulin degludec (Tresiba FlexTouch U-200) 200 unit/mL (3 mL) InPn Inject 10 (ten) Units under the skin nightly . 4.5 mL 0 latanoprost (XALATAN) 0.005 % ophthalmic solution methoxy peg-epoetin beta (MIRCERA INJ) 75 mcg by intravenous push route . predniSONE (DELTASONE) 20 MG tablet Take 1 (one) tablet (20 mg total) by mouth daily for 3 days . 3tablet 1 No current facility-administered medications for this visit. Review of Systems Respiratory: Negative for cough and shortness of breath. Cardiovascular: Positive for leg swelling. Negative for chest pain. Musculoskeletal: Positive for myalgias. Negative for arthralgias. Skin: Negative for color change and rash. Neurological: Negative for facial asymmetry, weakness and numbness. Physical Exam: BP 135/76 (BP Location: Right arm, Patient Position: Sitting, BP Cuff Size: X- large Adult) Pulse (!) 57 Temp 98.2 F (36.8 C) (Temporal) Resp 16 Ht 5' 6 Wt 77.1 kg (170 lb) SpO2 98% BMI27.44 kg/m Wt Readings from Last 3 Encounters: 12/21/21 77.1 kg (170 lb) 12/18/21 77.6 kg (171 lb) 12/15/21 77.6 kg (171 lb) BP Readings from Last 3 Encounters: 12/21/21 135/76 12/18/21 (!) 142/69 12/15/21 134/71 Physical Exam Constitutional: Appearance: She is not ill-appearing. HENT: Head: Normocephalic. Eyes: Conjunctiva/sclera: Conjunctivae normal. Musculoskeletal: General: Normal range of motion. Left shoulder: Crepitus present. No swelling. Normal range of motion. Normal strength. Left upper arm: Tenderness present. No swelling or edema. Left elbow: Normal range of motion. Tenderness present. Comments: Tenderness present on medial aspect of upper left arm from axilla to elbow Skin: Findings: No rash. Neurological: Mental Status: She is alert. Psychiatric: Mood and Affect: Mood normal. Behavior: Behavior is cooperative. Thought Content: Thought content normal. Judgment: Judgment normal. Health Maintenance Due Topic Date Due Ophthalmology Exam Never done Falls Risk Assessment 07/21/2021 Mammogram 08/24/2021 COVID-19 Vaccine (4 - Booster) 09/28/2021 Please note: Portions of this chart may have been created with Apse voice recognition software. Occasional wrong-word or sound-like substitutions may have occurred due to inherent limitations of the voice recognition software. Please read the chart carefully and recognize, using context, where the substitutions have occurred. For any new medications prescribed today, patient was educated about indications for the medication, how to take the medication and potential side effects of the medications. documented in this [id number] Evaluation + Plan note* Assessment & Plan Note - Grecia Fournier - 12/21/2021 4:08 PM EDTAssociated Problem(s): Gout Chronic, flares controlled with prednisone. Pt currently does not have a flare. Refill today. [id number] Miscellaneous Notes* Assessment & Plan Note - Grecia Fournier - 12/21/2021 4:08 PM EDTAssociated Problem(s): Gout Chronic, flares controlled with prednisone. Pt currently does not have a flare. Refill today. * Assessment & Plan Note - Grecia Fournier - 12/21/2021 4:00 PM EDTAssociated Problem(s): Pain of left upper extremity Acute. Most likely strain of left triceps muscle due to location of tenderness running from axilla to elbow. Less likely dislocation of shoulder or fracture due to lack of guarding or hesitancy on exam. No imaging is needed at this time. Counseled pt to avoid lying on the left side and use a heating pad for relief. documented in this [id number] Evaluation + Plan note* Assessment & Plan Note - Grecia Fournier - 12/21/2021 4:00 PM EDTAssociated Problem(s): Pain of left upper extremity Acute. Most likely strain of left triceps muscle due to location of tenderness running from axilla to elbow. Less likely dislocation of shoulder or fracture due to lack of guarding or hesitancy on exam. No imaging is needed at this time. Counseled pt to avoid lying on the left side and use a heating pad for relief. [id number] Evaluation + Plan note* Assessment & Plan Note - Chriss Wyman MD - 12/17/2021 8:49 AM EDTAssociated Problem(s): Renal cell carcinoma (HCC) Reviewed. [id number] Evaluation + Plan note* Assessment & Plan Note - Chriss Wyman MD - 12/17/2021 8:49 AM EDTAssociated Problem(s): Chest pain Left arm discomfort possible Angina. [id number] Miscellaneous Notes* Assessment & Plan Note - Chriss Wyman MD - 12/17/2021 8:49 AM EDTAssociated Problem(s): Renal cell carcinoma (HCC) Reviewed. * Assessment & Plan Note - Chriss Wyman MD - 12/17/2021 8:49 AM EDT Associated Problem(s): Chest pain Left arm discomfort possible Angina. documented in this [id number] History of Present illness Narrative* Chriss Wyman MD - 12/15/2021 10:56 AM EDT [facility] [address] ([address] [facility] [address] [facility] [id number] Subjective: Leslie Carcamo is a 71 y.o. female seen in the office today for Chief Complaint Patient presents with Follow-up ED 11/11/21 CP -denies CP/ JOHN/ pain in left arm Patient referred over with pain in left arm and history of chronic kidney disease. Recently startedon dialysis after the hospitalization early November. Patient with history of severe stage IV renal insufficiency prior to that. did have a stomach flu type symptoms came in the hospital short of breath.proBNP was elevated 6000 EKG unremarkable troponins unremarkable. Echocardiogram was unremarkable. Patient was started on dialysis during the admission. No history of myocardial infarction or previous heart failure. Does describe an ache underneath the left arm from time to time. Cannot exclude angina pectoris. Otherwise tolerating dialysis quite well patient is hoping to get off dialysis again at some point. . Overview of Problems Addressed: Problem Chest Pain Renal Cell Carcinoma (Hcc) Right papillary renal cell carcinoma pT1a, pNX (stage I) s/p right nephrectomy Assessment & Plan: Impression end-stage renal disease now on dialysis for last month presented with preserved ejectionfraction heart failure. Left arm discomfort possible angina pectoris. We will set up a Lexiscan nuclear stress test patient says she would have trouble walking on a treadmill. No change medications further recommendation pending results of the stress testing Question if patient is long-term on dialysis at this point or not; if not would be conservative about pursuing a coronary angiography Chest pain Left arm discomfort possible Angina. Renal cell carcinoma (HCC) Reviewed. Histories: Past Medical History: Diagnosis Date Chronic kidney disease (CKD) only one and 1/2 kidney Chronic kidney disease (CKD), active medical management without dialysis, stage 5 (HCC) Diabetes mellitus, type 2 (HCC) Diverticulosis 10/2021 Fibroid Glaucoma Gout H. pylori infection 10/2021 History of stress test 2016 screening and patient reports was normal Hyperlipidemia Hypertension Renal cell carcinoma (HCC) 02/06/2018 Right papillary renal cell carcinoma pT1a, pNX (stage I) s/p right nephrectomy Past Surgical History: Procedure Laterality Date COLONOSCOPY N/A 10/18/2021 Procedure: COLONOSCOPY with polypectomy; Surgeon: Chris Stovall MD; [place] [facility]; Service: Gastroenterology CV IR INTERVENTIONAL RADIOLOGY N/A 11/14/2021 Procedure: IR DIALYSIS CATHETER INSERTION TUNNELED; Surgeon: Gerhard Walker MD; Location: IR LAB; Service: Interventional Radiology EGD N/A 10/18/2021 Procedure: ESOPHAGOGASTRODUODENOSCOPY with biopsy and polypectomy; Surgeon: Chris Stovall MD; [place] [facility]; Service: Gastroenterology fatty tumor removed fibroid removed uterine HERNIA REPAIR HYSTERECTOMY NEPHRECTOMY PARTIAL ROBOTIC XI STAGE 2 Right 03/26/2018 Procedure: RIGHT ROBOTIC ASSISTED LAPAROSCOPIC PARTIAL NEPHRECTOMY LEVEL 2; Surgeon: Nasim Gaspar MD; Location: [facility] Main OR; Service: Urology Family History Problem Relation Age of Onset Hypertension Mother Brain cancer Mother No Known Problems Father Hypertension Sister Lung cancer Brother Hypertension Brother Non-Hodgkin's Lymphoma Daughter Stroke Daughter Hypertension Daughter Surgical complications Neg Hx Anesthesia problems Neg Hx Heart disease Neg Hx Clotting disorder Neg Hx Deep vein thrombosis Neg Hx Pulmonary embolism Neg Hx Social History Tobacco Use Smoking status: Never Smokeless tobacco: Never Vaping Use Vaping Use: Never used Substance Use Topics Alcohol use: Not Currently Comment: socially Drug use: No Patient's Medications New Prescriptions No medications on file Previous Medications AMLODIPINE (NORVASC) 10 MG TABLET Take 1 tablet by mouth daily . ASPIRIN 81 MG CHEWABLE TABLET Chew and Swallow 81 mg daily . ATORVASTATIN (LIPITOR) 40 MG TABLET Take 1 (one) tablet (40 mg total) by mouth every morning Reasons: high cholesterol. CARVEDILOL (COREG) 25 MG TABLET TAKE 1 TABLET TWICE DAILY WITH MEALS DULAGLUTIDE (TRULICITY) 1.5 MG/0.5 ML PEN Inject 1.5 mg under the skin once a week . FREESTYLE LITE STRIPS STRIPS TEST 3 TIMES DAILY DIRECTED FUROSEMIDE (LASIX) 40 MG TABLET 1 tab and 2 tab alternate days . HYDRALAZINE (APRESOLINE) 50 MG TABLET Take 1 tablet by mouth 3 (three) times a day . INSULIN DEGLUDEC (TRESIBA FLEXTOUCH U-200) 200 UNIT/ML (3 ML) INPN Inject 10 (ten) Units under the skin nightly . LATANOPROST (XALATAN) 0.005 % OPHTHALMIC SOLUTION Modified Medications No medications on file Discontinued Medications FERROUS GLUCONATE (FERGON) 324 MG TABLET Take 1 tablet by mouth daily . MULTIVITAMIN (THERAGRAN) PER TABLET Take 1 tablet by mouth every morning. OMEPRAZOLE (PRILOSEC) 20 MG CAPSULE Take 1 (one) capsule (20 mg total) by mouth 2 (two) times a day. No Known Allergies Review of Systems Constitutional: Negative for malaise/fatigue. Cardiovascular: Positive for dyspnea on exertion. Negative for chest pain, leg swelling and palpitations. Left upper arm discomfort Neurological: Negative for dizziness. Objective: Physical Exam Vitals and nursing note reviewed. Constitutional: General: She is not in acute distress. Appearance: She is well-developed. She is not diaphoretic. Comments: No acute distress HENT: Head: Normocephalic. Eyes: General: No scleral icterus. Comments: Pupils equal. Neck: Vascular: No JVD. Cardiovascular: Rate and Rhythm: Regular rhythm. Pulses: Radial pulses are 2+ on the right side and 2+ on the left side. Heart sounds: S1 normal and S2 normal. No murmur heard. No gallop. No S3 or S4 sounds. Comments: Feet warm bilateral. Dialysis catheter noted in the right subclavian area. Pulmonary: Effort: No respiratory distress. Breath sounds: Normal breath sounds. No stridor. No wheezing or rales. Abdominal: General: There is no distension. Palpations: Abdomen is soft. Tenderness: There is no abdominal tenderness. There is no guarding. Musculoskeletal: General: No tenderness. Skin: General: Skin is warm and dry. Neurological: Mental Status: She is alert and oriented to person, place, and time. Psychiatric: Behavior: Behavior normal. Vitals: Vitals: 12/15/21 1010 12/15/21 1012 BP: 138/72 134/71 BP Location: Left arm Right arm Patient Position: Sitting BP Cuff Size: Adult Pulse: (!) 59 SpO2: 98% Weight: 77.6 kg (171 lb) Height: 5' 6 Body mass index is 27.6 kg/m . Orders Placed This Encounter Procedures NM Myocardial Perfusion Multiple SPECT Standing Status: Future Standing Expiration Date: 12/15/2022 Scheduling Instructions: Do Not Schedule more than one Nuc Med procedure for a patient per day!!!! (Contact Nuc Med for exceptions) If it is after 12:00pm and procedure is for tomorrow, contact Nuclear Medicine for approval to schedule the procedure. Fax Order/Script to: [phone] for Central Scheduling scripts [phone] for [place] Scheduling scripts DO NOT USE R/O A DIAGNOSIS Order Specific Question: What type of stressing agent do you want to be used? Answer: Regadenoson (Lexiscan) Order Specific Question: Is patient ? Answer: No Order Specific Question: Release to patient Answer: Immediate Follow Up Ordered: Return if symptoms worsen or fail to improve. Chriss Wyman MD * Jerrica Whiting MA - 12/15/2021 10:23 AM EDT Review of Systems Constitutional: Negative for malaise/fatigue. Cardiovascular: Positive for dyspnea on exertion. Negative for chest pain, leg swelling and palpitations. Neurological: Negative for dizziness. documented in this [id number] Instructions* Patient Instructions* Clarissa Hernandez RN - 12/15/2021 9:52 AM EDT How to Contact your Care Team: Provider: Dr. Chriss Wyman MD Acquisition Cost Estimator: Clarissa Hernandez RN REFILLS: When in need for refills please call your care team or the office at [phone]. Please include medication name, pharmacy name, and specify 30-day or 90-day supply. Please check with your pharmacy within 24 hours of request for your refill. You must follow up as directed to continue current refills. Thank you! NUCLEAR MEDICINE CARDIAC STRESS TEST THIS IS A 3-4 HOUR TEST Instructions: Appointment Time: , ____/____/____ at ____:____ Prep: NO CAFFEINE FOR 24 HOURS prior to your test. This includes drinks labeled decaffeinated. Nothing to eat 4 hours prior to your test. A small snack will be provided (crackers, granola bar, juice), or you may bring your own snack for after your stress test. You may drink fluids leading up to your test as long as they are caffeine-free. Decaffeinated drinks still contain some caffeine, please do not drink anything containing caffeine for 24 hours. NO SMOKING the day of your test. Wear comfortable shoes and clothing for exercising. Please wear short sleeves. No metal buttons or snaps. Procedure: Check-in/Registration. Please bring photo ID, insurance cards, and any physician orders. Test explained in detail and IV started. Stress test performed, nuclear medicine will be injected through your IV during the stress test. Stress test recovery period. Heart scan performed. The doctor will review the pictures of your heart and decide if more pictures are needed before youleave. If more are needed you will get another injection of nuclear medicine and this will take an additional hour. The total time for this test is 3-4 hours. There are medications that interfere with this test. You may be instructed to hold medications. If so that will be listed here: If you have any further questions please contact your care team or [phone]. documented in this [id number] Telephone encounter Note* Telephone Encounter - Jennifer Benjamin LPN - 11/21/2021 1:13 PM EDT ----- Message from Henny Zapata MA sent at 11/20/2021 11:06 AM EDT ----- Regarding: Rx refill Contact: self MEDICATION REFILL REQUEST: PCP: Danny Rose MD Patient called 11/20/21 and is requesting a medication refill for insulin degludec (Tresiba FlexTouch U-200) 200 unit/mL (3 mL) InPn This was confirmed from the current medication list found in the patients chart. Supply Requested: # of days: 90 days Method of receiving: Send to pharmacy Last set of flowsheet rows for OARRS report: OARRS/NARxCHECK Report Received and Assessed: No data found Date controlled substance agreement signed: No data found Date of last drug screen: No data found Functional Assessment: No data found Will this refill be sent to the preferred pharmacy listed below? Yes Preferred pharmacies: [facility]/pharmacy #[id number] AT [address] [address] Pt Call Back Number Patient call back message sent to the primary care clinical pool. Henny Zapata [id number] Miscellaneous Notes* Telephone Encounter - Jennifer Benjamin LPN - 11/21/2021 1:13 PM EDT ----- Message from Henny Zapata MA sent at 11/20/2021 11:06 AM EDT ----- Regarding: Rx refill Contact: self MEDICATION REFILL REQUEST: PCP: Danny Rose MD Patient called 11/20/21 and is requesting a medication refill for insulin degludec (Tresiba FlexTouch U-200) 200 unit/mL (3 mL) InPn This was confirmed from the current medication list found in the patients chart. Supply Requested: # of days: 90 days Method of receiving: Send to pharmacy Last set of flowsheet rows for OARRS report: OARRS/NARxCHECK Report Received and Assessed: No data found Date controlled substance agreement signed: No data found Date of last drug screen: No data found Functional Assessment: No data found Will this refill be sent to the preferred pharmacy listed below? Yes Preferred pharmacies: [facility]/pharmacy #[id number] AT [place] [address] Pt Call Back Number Patient call back message sent to the primary care clinical pool. Henny Zapata documented in this [id number] History of Present illness Narrative* Chris Stovall MD - 11/01/2021 2:45 PM EDT Leslie Carcamo 70 y.o. 1950 female Changes since last visit: 70-year-old female had colonoscopy and EGD for iron deficiency anemia and guaiac positive stool. Colonoscopy revealed 2 small polyp in transverse colon 1 was tubular adenoma #2 mild diverticulosis #3external hemorrhoid. EGD revealed 2 small polyp in the prepyloric area biopsy revealed H. pylori induced gastritis. Duodenal biopsies was unremarkable. Patient is doing well denies any abdominal pain or blood in the stool Past Medical History: Past Medical History: Diagnosis Date Chronic kidney disease (CKD) only one and 1/2 kidney Chronic kidney disease (CKD), active medical management without dialysis, stage 5 (HCC) Diabetes mellitus, type 2 (HCC) Fibroid Glaucoma Gout History of echocardiogram History of stress test 2015 screening and patient reports was normal Hyperlipidemia Hypertension Renal cell carcinoma (HCC) 02/06/2018 Right papillary renal cell carcinoma pT1a, pNX (stage I) s/p right nephrectomy Family History Problem Relation Age of Onset Hypertension Mother Brain cancer Mother No Known Problems Father Hypertension Sister Lung cancer Brother Hypertension Brother Non-Hodgkin's Lymphoma Daughter Stroke Daughter Hypertension Daughter Surgical complications Neg Hx Anesthesia problems Neg Hx Heart disease Neg Hx Clotting disorder Neg Hx Deep vein thrombosis Neg Hx Pulmonary embolism Neg Hx Surgical History & Procedures: Past Surgical History: Procedure Laterality Date COLONOSCOPY N/A 10/18/2021 Procedure: COLONOSCOPY with polypectomy; Surgeon: Chris Stovall MD; [place] [facility] Service: Gastroenterology EGD N/A 10/18/2021 Procedure: ESOPHAGOGASTRODUODENOSCOPY with biopsy and polypectomy; Surgeon: Chris Stovall MD; [place] [facility]; Service: Gastroenterology fatty tumor removed fibroid removed uterine HERNIA REPAIR HYSTERECTOMY NEPHRECTOMY PARTIAL ROBOTIC XI STAGE 2 Right 03/26/2018 Procedure: RIGHT ROBOTIC ASSISTED LAPAROSCOPIC PARTIAL NEPHRECTOMY LEVEL 2; Surgeon: Nasim Gaspar MD; Location: [facility] Main OR; Service: Urology Social History: Social History Socioeconomic History Marital status: Tobacco Use Smoking status: Never Smokeless tobacco: Never Vaping Use Vaping Use: Never used Substance and Sexual Activity Alcohol use: Yes Comment: socially Drug use: No Sexual activity: Yes Current Medications: Current Outpatient Medications Medication Sig Dispense Refill amLODIPine (NORVASC) 10 MG tablet Take 1 tablet by mouth daily . aspirin 81 mg chewable tablet Chew and Swallow 81 mg daily . atorvastatin (LIPITOR) 40 MG tablet Take 1 (one) tablet (40 mg total) by mouth every morning Reasons: high cholesterol. 90 tablet 3 carvediloL (COREG) 25 MG tablet TAKE 1 TABLET TWICE DAILY WITH MEALS 180 tablet 1 dulaglutide (Trulicity) 1.5 mg/0.5 mL Pen Inject 1.5 mg under the skin once a week . ferrous gluconate (FERGON) 324 MG tablet Take 1 tablet by mouth daily . furosemide (LASIX) 40 MG tablet 1 tab and 2 tab alternate days . 60 tablet 11 hydrALAZINE (APRESOLINE) 50 MG tablet Take 1 tablet by mouth 3 (three) times a day . insulin degludec (Tresiba FlexTouch U-200) 200 unit/mL (3 mL) InPn Inject 10 (ten) Units under the skin nightly . 9 Syringe 11 latanoprost (XALATAN) 0.005 % ophthalmic solution multivitamin (THERAGRAN) per tablet Take 1 tablet by mouth every morning. blood pressure monitor Kit 1 kit by Miscellaneous route 2 (two) times a day . 1 each 0 blood-glucose meter kit Patient tests bid . 1 each 0 FreeStyle Lite Strips strips TEST 3 TIMES DAILY DIRECTED 200 strip 2 No current facility-administered medications for this visit. Review of Systems Constitutional: Negative for appetite change and unexpected weight change. HENT: Negative for voice change. Respiratory: Negative for cough, choking and shortness of breath. Cardiovascular: Negative for chest pain and leg swelling. Gastrointestinal: Negative for abdominal pain, anal bleeding, blood in stool, constipation, diarrhea, nausea, rectal pain and vomiting. Genitourinary: Negative for hematuria. Musculoskeletal: Negative for arthralgias and joint swelling. Skin: Negative for pallor. Neurological: Negative for dizziness, tremors and weakness. Hematological: Negative for adenopathy. Does not bruise/bleed easily. Psychiatric/Behavioral: Negative for confusion. Physical Exam Constitutional: Appearance: Normal appearance. Eyes: Pupils: Pupils are equal, round, and reactive to light. Cardiovascular: Pulses: Normal pulses. Heart sounds: Normal heart sounds. Pulmonary: Breath sounds: Normal breath sounds. Abdominal: General: Bowel sounds are normal. Palpations: Abdomen is soft. There is no mass. Tenderness: There is no abdominal tenderness. Skin: Coloration: Skin is not jaundiced. Neurological: General: No focal deficit present. Mental Status: She is alert and oriented to person, place, and time. Psychiatric: Behavior: Behavior normal. Office Visit on 10/26/2021 Component Date Value Ref Range Status Hemoglobin A1C 10/26/2021 6.7 (A) 4.0 - 6.0 % Final Admission on 10/18/2021, Discharged on 10/18/2021 Component Date Value Ref Range Status Glucose 10/18/2021 102 (A) 65 - 99 mg/dL Final Case Report 10/18/2021 Final Value:Surgical Pathology Report Case: [id number] Authorizing Provider: Chris Stovall, Collected: 10/18/2021 09:36 AM Ordering Location: [facility] Surgery Received: 10/18/2021 12:50 PM Center Periop Pathologist: Del Hemphill MD Specimens: A) - Colon, Transverse, 2 B) - Gastric C) - Anastomoses, Duoduodenal, duodenal biopsy Final Diagnosis 10/18/2021 Final Value:This result contains rich text formatting which cannot be displayed here. Clinical Information 10/18/2021 Final Value:This result contains rich text formatting which cannot be displayed here. Gross Description 10/18/2021 Final Value:This result contains rich text formatting which cannot be displayed here. Microscopic Description 10/18/2021 Final Value:This result contains rich text formatting which cannot be displayed here. Nurse Only on 10/06/2021 Component Date Value Ref Range Status Hemoglobin 10/06/2021 11.0 (A) 12.0 - 16.0 g/dL Final Hematocrit 10/06/2021 34.4 (A) 36.0 - 46.0 % Final Sodium 10/06/2021 143 135 - 145 mmol/L Final Potassium 10/06/2021 4.1 3.5 - 5.1 mmol/L Final Chloride 10/06/2021 112 (A) 98 - 108 mmol/L Final Bicarbonate 10/06/2021 21 21 - 32 mmol/L Final Anion Gap 10/06/2021 14 10 - 20 mmol/L Final Glucose 10/06/2021 215 (A) 65 - 99 mg/dL Final BUN 10/06/2021 51 (A) 8 - 25 mg/dL Final Creatinine 10/06/2021 4.51 (A) 0.60 - 1.20 mg/dL Final eGFR 10/06/2021 11 (A) >=60 mL/min/1.73 m2 Final BUN/Creatinine Ratio 10/06/2021 11.3 10.0 - 20.0 Final Albumin 10/06/2021 3.1 (A) 3.2 - 5.2 g/dL Final Calcium 10/06/2021 8.2 (A) 8.4 - 10.2 mg/dL Final Phosphorus 10/06/2021 4.2 (A) 2.8 - 4.1 mg/dL Final Assessment & Plan: #1 H. pylori induced gastritis will treat with triple therapy. Prilosec 20 mg twice daily, amoxicillin 500 mg twice daily, Clithromycin 500 mg twice daily for 10 days. #2 adenomatous colon polyp she will need repeat colonoscopy in 5 years 3. Diverticulosis diet explained to the patient 4. Iron deficiency anemia I asked her to continue take her iron supplement. Patient is referred back to primary care physician. Chris tSovall MD documented in this [id number] Evaluation + Plan note* Assessment & Plan Note - Danny Rose MD - 10/29/2021 10:21 AM EDTAssociated Problem(s): Gout Has been prescribed small dose of steroids to be used when she has symptoms. I did provide her witha refill today. No acute flare of her gout. Discussed decreasing sugars [id number] Miscellaneous Notes* Assessment & Plan Note - Danny Rose MD - 10/29/2021 10:21 AM EDTAssociated Problem(s): Gout Has been prescribed small dose of steroids to be used when she has symptoms. I did provide her witha refill today. No acute flare of her gout. Discussed decreasing sugars * Assessment & Plan Note - Danny Rose MD - 10/26/2021 2:17 PM EDTAssociated Problem(s): Mixed hyperlipidemia Chronic, on statin. Recommend continuing. She is high risk for CVD and has a history of diabetes The 10-year ASCVD risk score (Saint Robert DEVI Jr., et al., 2013) is: 39.4% Values used to calculate the score: Age: 70 years Sex: Female Is Non- : Yes Diabetic: Yes Tobacco smoker: No Systolic Blood Pressure: 169 mmHg Is BP treated: Yes HDL Cholesterol: 71 mg/dL Total Cholesterol: 194 mg/dL * Assessment & Plan Note - Danny Rose MD - 10/26/2021 2:16 PM EDTAssociated Problem(s): Essential hypertension Chronic, uncontrolled. Recommend tighter control with a goal < 130/80. She is following with nephrology. Medications were adjusted recently. Currently on Coreg 25 mg BID, amlodipine 10 mg QD, hydralazine now 50 mg TID and per patient request the benazepril was discontinued. Also on daily Lasix. * Assessment & Plan Note - Danny Rose MD - 10/26/2021 2:15 PM EDTAssociated Problem(s): Type 2 diabetes 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, with long-termcurrent use of insulin (HCC) Chronic, controlled. Managed by endocrinology (Nnamdi). Ha1c today 6.7. Goal < 7. Recommend thatshe cuts the insulin in half vs not taking it on days when she doesn't eat as well. Currently on Tresiba and Trulicity. No side effects. documented in this [id number] Evaluation + Plan note* Assessment & Plan Note - Danny Rose MD - 10/26/2021 2:17 PM EDTAssociated Problem(s): Mixed hyperlipidemia Chronic, on statin. Recommend continuing. She is high risk for CVD and has a history of diabetes The 10-year ASCVD risk score (Ashley QUINONEZ Jr., et al., 2013) is: 39.4% Values used to calculate the score: Age: 70 years Sex: Female Is Non- : Yes Diabetic: Yes Tobacco smoker: No Systolic Blood Pressure: 169 mmHg Is BP treated: Yes HDL Cholesterol: 71 mg/dL Total Cholesterol: 194 mg/dL [id number] Evaluation + Plan note* Assessment & Plan Note - Danny Rose MD - 10/26/2021 2:16 PM EDTAssociated Problem(s): Essential hypertension Chronic, uncontrolled. Recommend tighter control with a goal < 130/80. She is following with nephrology. Medications were adjusted recently. Currently on Coreg 25 mg BID, amlodipine 10 mg QD, hydralazine now 50 mg TID and per patient request the benazepril was discontinued. Also on daily Lasix. [id number] Evaluation + Plan note* Assessment & Plan Note - Danny Rose MD - 10/26/2021 2:15 PM EDTAssociated Problem(s): Type 2 diabetes 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, with long-termcurrent use of insulin (HCC) Chronic, controlled. Managed by endocrinology (Nnamdi). Ha1c today 6.7. Goal < 7. Recommend thatshe cuts the insulin in half vs not taking it on days when she doesn't eat as well. Currently on Tresiba and Trulicity. No side effects. [id number] History of Present illness Narrative* Danny Rose MD - 10/26/2021 2:00 PM EDT Leslie Carcamo is a 70 y.o. female Assessment/Plan: Problem List Items Addressed This Visit Endocrine Type 2 diabetes 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, with long-term current use of insulin(HCC) - Primary Chronic, controlled. Managed by endocrinology (Nnamdi). Ha1c today 6.7. Goal < 7. Recommend thatshe cuts the insulin in half vs not taking it on days when she doesn't eat as well. Currently on Tresiba and Trulicity. No side effects. Relevant Orders POC Glycosylated Hemoglobin (Hb A1C) (Completed) Cardiovascular and Mediastinum Essential hypertension Chronic, uncontrolled. Recommend tighter control with a goal < 130/80. She is following with nephrology. Medications were adjusted recently. Currently on Coreg 25 mg BID, amlodipine 10 mg QD, hydralazine now 50 mg TID and per patient request the benazepril was discontinued. Also on daily Lasix. Other Mixed hyperlipidemia Chronic, on statin. Recommend continuing. She is high risk for CVD and has a history of diabetes The 10-year ASCVD risk score ([place] QUINONEZ Jr., et al., 2013) is: 39.4% Values used to calculate the score: Age: 70 years Sex: Female Is Non- : Yes Diabetic: Yes Tobacco smoker: No Systolic Blood Pressure: 169 mmHg Is BP treated: Yes HDL Cholesterol: 71 mg/dL Total Cholesterol: 194 mg/dL Relevant Medications atorvastatin (LIPITOR) 40 MG tablet Gout Has been prescribed small dose of steroids to be used when she has symptoms. I did provide her witha refill today. No acute flare of her gout. Discussed decreasing sugars Relevant Medications predniSONE (DELTASONE) 20 MG tablet Return in about 3 months (around 01/26/2022) for DM/HTN f/u. Leslie Carcamo is a 70 y.o. female who presents for Chief Complaint Patient presents with Hypertension HPI She has a history of chronic kidney disease, Hypertension, diabetes and chronic back pain. She presents for BP and chronic kidney disease follow up. Her blood pressure has been elevated at times, sheis taking her medications as prescribed. Working with nephrology as well. Patient Active Problem List Diagnosis H/O partial nephrectomy Stage 4 chronic kidney disease (HCC) Anemia COAG (chronic open-angle glaucoma) Dry eyes, bilateral Essential hypertension Epiphora, unspecified as to cause Mixed hyperlipidemia Type 2 diabetes mellitus without retinopathy (HCC) Chronic midline low back pain without sciatica Bradycardia Class 1 obesity due to excess calories with serious comorbidity and body mass index (BMI) of 30.0 to 30.9 in adult Type 2 diabetes 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, with long-term current use of insulin(HCC) Gout Renal cell carcinoma (HCC) Anemia due to stage 4 chronic kidney disease (HCC) Past Surgical History: Procedure Laterality Date COLONOSCOPY N/A 10/18/2021 Procedure: COLONOSCOPY with polypectomy; Surgeon: Chris Stovall MD; [place] [facility] [place] Service: Gastroenterology EGD N/A 10/18/2021 Procedure: ESOPHAGOGASTRODUODENOSCOPY with biopsy and polypectomy; Surgeon: Chris Stovall MD; [place] [facility] [place] Service: Gastroenterology fatty tumor removed fibroid removed uterine HERNIA REPAIR HYSTERECTOMY NEPHRECTOMY PARTIAL ROBOTIC XI STAGE 2 Right 03/26/2018 Procedure: RIGHT ROBOTIC ASSISTED LAPAROSCOPIC PARTIAL NEPHRECTOMY LEVEL 2; Surgeon: Nasim Gaspar MD; Location: [facility] Main OR; Service: Urology Family History Problem Relation Age of Onset Hypertension Mother Brain cancer Mother No Known Problems Father Hypertension Sister Lung cancer Brother Hypertension Brother Non-Hodgkin's Lymphoma Daughter Stroke Daughter Hypertension Daughter Surgical complications Neg Hx Anesthesia problems Neg Hx Heart disease Neg Hx Clotting disorder Neg Hx Deep vein thrombosis Neg Hx Pulmonary embolism Neg Hx Social History Tobacco Use Smoking status: Never Smokeless tobacco: Never Vaping Use Vaping Use: Never used Substance Use Topics Alcohol use: Yes Comment: socially Drug use: No Current Outpatient Medications Medication Sig Dispense Refill amLODIPine (NORVASC) 10 MG tablet Take 1 tablet by mouth daily . aspirin 81 mg chewable tablet Chew and Swallow 81 mg daily . blood pressure monitor Kit 1 kit by Miscellaneous route 2 (two) times a day . 1 each 0 blood-glucose meter kit Patient tests bid . 1 each 0 carvediloL (COREG) 25 MG tablet TAKE 1 TABLET TWICE DAILY WITH MEALS 180 tablet 1 dulaglutide (Trulicity) 1.5 mg/0.5 mL Pen Inject 1.5 mg under the skin once a week . FreeStyle Lite Strips strips TEST 3 TIMES DAILY DIRECTED 200 strip 2 furosemide (LASIX) 40 MG tablet 1 tab and 2 tab alternate days . 60 tablet 11 hydrALAZINE (APRESOLINE) 50 MG tablet Take 1 tablet by mouth 3 (three) times a day . insulin degludec (Tresiba FlexTouch U-200) 200 unit/mL (3 mL) InPn Inject 10 (ten) Units under the skin nightly . 9 Syringe 11 latanoprost (XALATAN) 0.005 % ophthalmic solution multivitamin (THERAGRAN) per tablet Take 1 tablet by mouth every morning. atorvastatin (LIPITOR) 40 MG tablet Take 1 (one) tablet (40 mg total) by mouth every morning Reasons: high cholesterol. 90 tablet 3 ferrous gluconate (FERGON) 324 MG tablet Take 1 tablet by mouth daily . predniSONE (DELTASONE) 20 MG tablet Take 1 (one) tablet (20 mg total) by mouth daily for 3 days . 3tablet 0 No current facility-administered medications for this visit. Review of Systems Constitutional: Negative for diaphoresis and fatigue. Respiratory: Negative for shortness of breath. Cardiovascular: Negative for chest pain and palpitations. Neurological: Negative for dizziness and headaches. Physical Exam: BP (!) 169/77 (BP Location: Left arm, Patient Position: Sitting, BP Cuff Size: Adult) Pulse (!) 55 Temp 98 F (36.7 C) (Temporal) Resp 16 Ht 5' 6 Wt 85.2 kg (187 lb 12.8 oz) SpO2 99% BMI 30.31 kg/m Wt Readings from Last 3 Encounters: 10/26/21 85.2 kg (187 lb 12.8 oz) 10/18/21 83.9 kg (185 lb) 10/16/21 85.5 kg (188 lb 6.4 oz) BP Readings from Last 3 Encounters: 10/26/21 (!) 169/77 10/18/21 (!) 178/74 10/16/21 (!) 161/81 Physical Exam Vitals reviewed. Constitutional: General: She is not in acute distress. Appearance: She is not ill-appearing. HENT: Head: Normocephalic. Eyes: Conjunctiva/sclera: Conjunctivae normal. Cardiovascular: Rate and Rhythm: Normal rate. Pulmonary: Effort: Pulmonary effort is normal. No respiratory distress. Skin: Findings: No rash. Neurological: Mental Status: She is alert and oriented to person, place, and time. Psychiatric: Mood and Affect: Mood normal. Behavior: Behavior normal. Thought Content: Thought content normal. Health Maintenance Due Topic Date Due Ophthalmology Exam Never done Falls Risk Assessment 07/21/2021 Mammogram 08/24/2021 COVID-19 Vaccine (4 - Booster) 10/03/2021 Goals Blood Pressure < 130/80 HEMOGLOBIN A1C < 7 Blood sugar levels outside the normal range may be an indicator of diabetes. Please note: Portions of this chart may have been created with [employer]se voice recognition software. Occasional wrong-word or sound-like substitutions may have occurred due to inherent limitations of the voice recognition software. Please read the chart carefully and recognize, using context, where the substitutions have occurred. For any new medications prescribed today, patient was educated about indications for the medication, how to take the medication and potential side effects of the medications. documented in this [id number] Instructions* Patient Instructions* Meenakshi Rider CNP - 10/16/2021 2:47 PM EDT Decrease Retacrit to 20,000 units every 4 weeks for hemoglobin less than 10 Follow up in 4 months with Meenakshi documented in this [id number] History of Present illness Narrative* Meenakshi Rider CNP - 10/16/2021 2:30 PM EDT Hematology/Oncology Clinic Consult Note Patient ID: Leslie Carcamo is a 70 y.o. female Reason for Consult: Anemia of Chronic Kidney Disease Stage V Date: 08/13/21 Referring Physician: Dr. Ela Muller PCP: Danny Rose MD Diagnosis: Right papillary renal cell carcinoma pT1a, pNX (stage I) s/p right nephrectomy Date of Diagnosis: 03/26/2018 Surgeon: Dr. Gaspar Interval History: Ms. Leslie Carcamo returns in follow up of her anemia of CKD stage V and renal cell cancer s/p nephrectomy. She was first seen in consult on 08/13/21, and following that visit We initiated the patient on Retacrit 20,000 units weekly for hemoglobin less than 10 She did receive Retacrit weekly until 09/08/21,and since that time her hgb has been greater than 10. 7. Her last hgb on 10/06/21 was 11.0 08/18/2021 Stool for occult blood positive she is scheduled for a colonoscopy on 10/18/21 B12 level 495, folate 13.2, LDH 386, reticulocyte count 1.8% IgG normal at 816, IgM normal at 105, IgA normal at 116, serum and fixation no paraproteins detected, kappa free light chains elevated at 76.97 normal range 3.3-19.40, lambda free light chains elevated at 31.43 with normal range 5.71- 26.30, free light chain ratio elevated 2.45 with normal range 0.26-1.65, SPEP with hypoproteinemia., Hemoglobin 8.1 hematocrit 26, iron 68, ferritin 84, TIBC 268, iron saturation 25% History of Present Illness: Leslie Carcamo is a 70 y.o. female with a history of renal cell carcinoma,hypertension, hyperlipidema, gout, glaucoma, and diabetes. The patient also has a history of right papillary renal cell carcinoma pT1a, pNX (stage I) s/p right nephrectomy. She was referred by Dr. Ela Muller for evaluation of anemia. The patient was first evaluated by nephrology in March 2019 for her chronic kidney disease secondary to diabetic nephropathy and hypertension. In addition to her right nephrectomy for renal cell carcinoma. Her spouse secondary to end-stage renal disease in August 2020. She has had multiple admissions for pulmonary edema and fluid overload. In July 2021 she was referred to [facility] for transplant. Since then she is canceled dialysis education because she had gout. She has been on iron supplement since at least May 2021. 07/19/21 hgb 8.3, hematocrit 26.2, MCV normal at 91, BUN 53, creatinine 4.53, egfr 11, calcium 8.2, phosphorus 4.9, 07/03/21 iron 73, ferritin 104, iron sat 26%. Her anemia dates back to March 2018 with a hemoglobin of 9.9. Since that time, her hemoglobin has fluctuated between 8 and 9, only over 10 one time during those 4 years. B12 level 495, folate 13.2, LDH 386, reticulocyte count 1.8% IgG normal at 816, IgM normal at 105, IgA normal at 116, serum and fixation no paraproteins detected, kappa free light chains elevated at 76.97 normal range 3.3-19.40, lambda free light chains elevated at 31.43 with normal range 5.71- 26.30, free light chain ratio elevated 2.45 with normal range 0.26-1.65, SPEP with hypoproteinemia., Hemoglobin 8.1 hematocrit 26, iron 68, ferritin 84, TIBC 268, iron saturation 25% Colonoscopy 12/05/[address] Stovall with findings of 5 mm polyp in the cecum. Polyp was sessile. Removed with hot snare. Many small mouth diverticula were found in the sigmoid and descending colon.Exam was otherwise normal throughout the examined colon. Repeat colonoscopy in 5 years for surveillance. Past Medical and Surgical History Past Medical History: Diagnosis Date Chronic kidney disease (CKD), active medical management without dialysis, stage 5 (HCC) Diabetes mellitus, type 2 (HCC) Fibroid Glaucoma Gout History of echocardiogram History of stress test 2015 screening and patient reports was normal Hyperlipidemia Hypertension Renal cell carcinoma (HCC) 02/06/2018 Right papillary renal cell carcinoma pT1a, pNX (stage I) s/p right nephrectomy Past Surgical History: Procedure Laterality Date fatty tumor removed fibroid removed uterine HERNIA REPAIR HYSTERECTOMY NEPHRECTOMY PARTIAL ROBOTIC XI STAGE 2 Right 03/26/2018 Procedure: RIGHT ROBOTIC ASSISTED LAPAROSCOPIC PARTIAL NEPHRECTOMY LEVEL 2; Surgeon: Nasim Gaspar MD; Location: [facility] Main OR; Service: Urology Allergies and Medications No Known Allergies Current Outpatient Medications Medication Sig Dispense Refill amLODIPine (NORVASC) 10 MG tablet Take 1 tablet by mouth daily . aspirin 81 mg chewable tablet Chew and Swallow 81 mg daily . atorvastatin (LIPITOR) 40 MG tablet Take 1 (one) tablet (40 mg total) by mouth every morning Reasons: high cholesterol. 90 tablet 1 bisacodyL (DULCOLAX) 5 mg EC tablet As instructed . 4 tablet 0 blood pressure monitor Kit 1 kit by Miscellaneous route 2 (two) times a day . 1 each 0 blood-glucose meter kit Patient tests bid . 1 each 0 calcium-vitamin D 500 mg(1,250mg) -200 unit per tablet TAKE 1 (ONE) TABLET BY MOUTH 2 (TWO) TIMES ADAY WITH MEALS . 60 tablet 11 carvediloL (COREG) 25 MG tablet TAKE 1 TABLET TWICE DAILY WITH MEALS 180 tablet 1 dulaglutide (Trulicity) 1.5 mg/0.5 mL Pen Inject 1.5 mg under the skin once a week . ferrous gluconate (FERGON) 324 MG tablet Take 1 tablet by mouth daily . FreeStyle Lite Strips strips TEST 3 TIMES DAILY DIRECTED 200 strip 2 furosemide (LASIX) 40 MG tablet 1 tab and 2 tab alternate days . 60 tablet 11 hydrALAZINE (APRESOLINE) 50 MG tablet Take 1 tablet by mouth 3 (three) times a day . latanoprost (XALATAN) 0.005 % ophthalmic solution multivitamin (THERAGRAN) per tablet Take 1 tablet by mouth every morning. insulin degludec (Tresiba FlexTouch U-200) 200 unit/mL (3 mL) InPn Inject 10 (ten) Units under the skin nightly . 9 Syringe 11 predniSONE (DELTASONE) 20 MG tablet 1 TAB BY MOUTH DAILY FOR 3 DAYS FOR SEVERE GOUT No current facility-administered medications for this visit. Family and Social History Family History Problem Relation Age of Onset Hypertension Mother Brain cancer Mother No Known Problems Father Hypertension Sister Lung cancer Brother Hypertension Brother Non-Hodgkin's Lymphoma Daughter Stroke Daughter Hypertension Daughter Surgical complications Neg Hx Anesthesia problems Neg Hx Heart disease Neg Hx Clotting disorder Neg Hx Deep vein thrombosis Neg Hx Pulmonary embolism Neg Hx Social History Socioeconomic History Marital status: Tobacco Use Smoking status: Never Smokeless tobacco: Never Vaping Use Vaping Use: Never used Substance and Sexual Activity Alcohol use: Yes Comment: socially Drug use: No Sexual activity: Yes Review of Systems Review of Systems: General Constitutional: Denied fevers, chills, anorexia, weight loss, or night sweats + fatigue Eyes: denied blurry vision, glaucoma ENT: denied nasal drainage, sinus pressure Mouth: denied oral ulcers Endocrine: unusual weight loss, heat or cold intolerance, polyuria, polydipsia, or hair loss/gain Lymphatics: no new adenopathy in cervical, supraclavicular, axillary, inguinal regions Respiratory: no cough, + SOB with stairs CV: denied palpitations, chest pain/pressure, PND, orthopnea.+ Has had issues with edema GI: denied abd pain, n/v/d, constipation, melena. : denied dysuria, urgency, frequency or hematuria. Skin: no rashes or lesions Musculoskeletal: denied muscle/joint/bone pain Hematologic/lmmunologic: no adenopathy, bleeding, easy bruisiality or recurrent infection. Neurology: Denied new headaches, numbness or weakness of extremities Psych: denied anxiety, depression or mood swings Physical Exam ECOG 1 PACU Vitals 10/16/21 1430 BP: (!) 161/81 Pulse: 60 Temp: 97.6 F (36.4 C) SpO2: 97% General Appearance: Alert, well developed, and in no acute distress. HEENT: Head - Normocephalic, atraumatic. No temporal wasting . Eyes - PHILIP bilaterally and EOMI, anicteric sclerae. Ears - normal external appearance, hearing intact. Nose - normal, no erythema. Throat - mucous membranes moist, pharynx without lesions. Neck: Supple, trachea midline. Cardiovascular: S1, S2 normal. No murmurs, rubs, clicks or gallops appreciated. mild pedal edema. Respiratory: Lungs clear to auscultation, no wheezes, rales or rhonchi heard. Abdomen: Soft, non-tender, normal bowel sounds, non-distended, no hepatosplenomegaly Neurological: Grossly normal motor and sensory exam. No focal deficits. Musculoskeletal: No joint tenderness, deformity. Skin: Normal coloration and turgor. No rashes. Psych: Alert, oriented x 3. Normal mood and affect. Labs: Lab Results Component Value Date WBC 5.89 09/22/2021 HGB 11.0 (L) 10/06/2021 HCT 34.4 (L) 10/06/2021 MCV 92.4 09/22/2021 EXTMCV 88.4 05/08/2018 PLT 216 09/22/2021 RBC 3.70 (L) 09/22/2021 Lab Results Component Value Date GLUCOSE 215 (H) 10/06/2021 CALCIUM 8.2 (L) 10/06/2021 NA 143 10/06/2021 K 4.1 10/06/2021 CL 112 (H) 10/06/2021 BUN 51 (H) 10/06/2021 CREATININE 4.51 (H) 10/06/2021 Lab Results Component Value Date IRON 68 08/18/2021 TIBC 268 08/18/2021 FERRITIN 84 08/18/2021 Radiology: reviewed in EMR Assessment and Recommendations Assessment and recommendations: Leslie Carcamo is a 70 y.o. female with a history of renal cell carcinoma, hypertension, hyperlipidema, gout, glaucoma, and diabetes. The patient also has a history of right papillary renal cell carcinoma pT1a, pNX (stage I) s/p right nephrectomy. She was referred by Dr. Ela Muller for evaluation of anemia. Anemia of Stage V Chronic Kidney Disease, not on dialysis -The patient was first evaluated by nephrology in March 2019 for her chronic kidney disease secondary to diabetic nephropathy and hypertension. In addition to her right nephrectomy for renal cell carcinoma. Her spouse secondary to end-stage renal disease in August 2020. She has had multiple admissions for pulmonary edema and fluid overload. In July 2021 she was referred to [facility] for transplant. Since then she is canceled dialysis education because she had gout. She has been on ironsupplement since at least May 2021. -07/19/21 hgb 8.3, hematocrit 26.2, MCV normal at 91, BUN 53, creatinine 4.53, egfr 11, calcium 8.2, phosphorus 4.9, 07/03/21 iron 73, ferritin 104, iron sat 26%. Her anemia dates back to March 2018 with a hemoglobin of 9.9. Since that timeI, her hemoglobin has fluctuated between 8 and 9, only over 10 one time during those 4 years. -The patient demonstrates a normocytic anemia. Differential diagnoses include: Occult GI Blood loss, normal iron studies anemia, B-12 deficiency anemia, Anemia of chronic inflammation/disease, Anemiaof chronic kidney injury, Plasma cell dyscrasia. 08/18/2021 B12 level 495, folate 13.2, LDH 386, reticulocyte count 1.8% IgG normal at 816, IgM normal at 105, IgA normal at 116, serum and fixation no paraproteins detected, kappa free light chains elevated at 76.97 normal range 3.3-19.40, lambda free light chains elevated at 31.43 with normal range 5.71- 26.30, free light chain ratio elevated 2.45 with normal range 0.26-1.65, SPEP with hypoproteinemia., Hemoglobin 8.1 hematocrit 26, iron 68, ferritin 84, TIBC 268, iron saturation 25% - We will initiate the patient on Retacrit 20,000 units weekly for hemoglobin less than 10, and titrate dose appropriately. Risks and benefits reviewed with patient. She is in agreement to proceed. - We initiated the patient on Retacrit 20,000 units weekly for hemoglobin less than 10 She did receive Retacrit weekly until 09/08/21,and since that time her hgb has been greater than 10. 7. Her last hgb on 10/06/21 was 11.0 - Will decrease Retacrit to 20,000 units every 4 weeks for hgb < 10 and see patient back in 4 months Renal Cell Cancer The patient also has a history of right papillary renal cell carcinoma pT1a, pNX (stage I) s/p right nephrectomy by Dr. Gaspar. She was last seen by Dr. Gaspar in 2019, and is following up with Dr. Moreno locally. Stool occult blood positive 08/18/2021 Stool for occult blood positive she is scheduled for a EGD/colonoscopy on 10/18/21 Education Provided Education/Instructions given to: (x) Patient (_) Spouse (_) Parent (_) Other Barriers to Learning: (x) None (_) Yes (identify):_ Content: (x) Refer to note above (_)Other (identify):_ Evaluation/Outcome: (x) Verbalized understanding (_) Demonstrated understanding (_) Other:_ DARRICK Wang- documented in this [id number] History of Present illness Narrative* Marin Price RN - 10/06/2021 3:26 PM EDT Retacrit dose held due to hgb 11.0 documented in this [id number] History of Present illness Narrative* Chris Stovall MD - 09/14/2021 2:31 PM EDT Leslie Carcamo 70 y.o. 1950 female Reason for Consult: Iron deficiency anemia and heme positive stool HPI: 70-year-old female with history of hypertension, hyperlipidemia, diabetes mellitus, chronic renal insufficiency, renal cell carcinoma status post right nephrectomy was referred to me for GI work-up as patient was found to have iron deficiency anemia and guaiac positive stool. Patient denies any bright red blood per rectum or melena she says her stools are black-brown as she is taking iron tablet.No history of any abdominal pain or recent weight loss no family history of any colon cancer her last colonoscopy was in 2018. Past Medical History: Past Medical History: Diagnosis Date Chronic kidney disease (CKD), active medical management without dialysis, stage 5 (HCC) Diabetes mellitus, type 2 (HCC) Fibroid Glaucoma Gout History of echocardiogram History of stress test 2015 screening and patient reports was normal Hyperlipidemia Hypertension Renal cell carcinoma (HCC) 02/06/2018 Right papillary renal cell carcinoma pT1a, pNX (stage I) s/p right nephrectomy Family History Problem Relation Age of Onset Hypertension Mother Brain cancer Mother No Known Problems Father Hypertension Sister Lung cancer Brother Hypertension Brother Non-Hodgkin's Lymphoma Daughter Stroke Daughter Hypertension Daughter Surgical complications Neg Hx Anesthesia problems Neg Hx Heart disease Neg Hx Clotting disorder Neg Hx Deep vein thrombosis Neg Hx Pulmonary embolism Neg Hx Surgical History & Procedures: Past Surgical History: Procedure Laterality Date fatty tumor removed fibroid removed uterine HERNIA REPAIR HYSTERECTOMY NEPHRECTOMY PARTIAL ROBOTIC XI STAGE 2 Right 03/26/2018 Procedure: RIGHT ROBOTIC ASSISTED LAPAROSCOPIC PARTIAL NEPHRECTOMY LEVEL 2; Surgeon: Nasim Gaspar MD; Location: [facility] Main OR; Service: Urology Social History: Social History Socioeconomic History Marital status: Tobacco Use Smoking status: Never Smoker Smokeless tobacco: Never Used Vaping Use Vaping Use: Never used Substance and Sexual Activity Alcohol use: Yes Comment: socially Drug use: No Sexual activity: Yes Current Medications: Current Outpatient Medications Medication Sig Dispense Refill amLODIPine (NORVASC) 10 MG tablet Take 1 tablet by mouth daily . aspirin 81 mg chewable tablet Chew and Swallow 81 mg daily . atorvastatin (LIPITOR) 40 MG tablet Take 1 (one) tablet (40 mg total) by mouth every morning Reasons: high cholesterol. 90 tablet 1 carvediloL (COREG) 25 MG tablet TAKE 1 TABLET TWICE DAILY WITH MEALS 180 tablet 1 dulaglutide (Trulicity) 1.5 mg/0.5 mL Pen Inject 1.5 mg under the skin once a week . ferrous gluconate (FERGON) 324 MG tablet Take 1 tablet by mouth daily . furosemide (LASIX) 40 MG tablet 1 tab and 2 tab alternate days . 60 tablet 11 hydrALAZINE (APRESOLINE) 50 MG tablet Take 1 tablet by mouth 3 (three) times a day . insulin degludec (Tresiba FlexTouch U-200) 200 unit/mL (3 mL) InPn Inject 10 (ten) Units under the skin nightly . 9 Syringe 11 latanoprost (XALATAN) 0.005 % ophthalmic solution multivitamin (THERAGRAN) per tablet Take 1 tablet by mouth every morning. predniSONE (DELTASONE) 20 MG tablet 1 TAB BY MOUTH DAILY FOR 3 DAYS FOR SEVERE GOUT bisacodyL (DULCOLAX) 5 mg EC tablet As instructed . 4 tablet 0 blood pressure monitor Kit 1 kit by Miscellaneous route 2 (two) times a day . 1 each 0 blood-glucose meter kit Patient tests bid . 1 each 0 calcium-vitamin D 500 mg(1,250mg) -200 unit per tablet TAKE 1 (ONE) TABLET BY MOUTH 2 (TWO) TIMES ADAY WITH MEALS . (Patient not taking: Reported on 09/14/2021 .) 60 tablet 11 FreeStyle Lite Strips strips TEST 3 TIMES DAILY DIRECTED 200 strip 2 polyethylene glycol (GoLYTELY) 236-22.74-6.74 -5.86 gram solution Take 4,000 mL by mouth once for 1dose . 4000 mL 0 No current facility-administered medications for this visit. Review of Systems Constitutional: Negative for appetite change and unexpected weight change. HENT: Negative for voice change. Respiratory: Negative for cough, choking and shortness of breath. Cardiovascular: Negative for chest pain and leg swelling. Gastrointestinal: Negative for abdominal pain, anal bleeding, blood in stool, constipation, diarrhea, nausea, rectal pain and vomiting. Genitourinary: Negative for hematuria. Musculoskeletal: Negative for arthralgias and joint swelling. Skin: Negative for pallor. Neurological: Negative for dizziness, tremors and weakness. Hematological: Negative for adenopathy. Does not bruise/bleed easily. Psychiatric/Behavioral: Negative for confusion. Physical Exam Constitutional: Appearance: Normal appearance. Eyes: Pupils: Pupils are equal, round, and reactive to light. Cardiovascular: Pulses: Normal pulses. Heart sounds: Normal heart sounds. Pulmonary: Breath sounds: Normal breath sounds. Abdominal: General: Bowel sounds are normal. Palpations: Abdomen is soft. There is no mass. Tenderness: There is no abdominal tenderness. Skin: Coloration: Skin is not jaundiced. Neurological: General: No focal deficit present. Mental Status: She is alert and oriented to person, place, and time. Psychiatric: Behavior: Behavior normal. Nurse Only on 09/08/2021 Component Date Value Ref Range Status Hemoglobin 09/08/2021 9.8 (A) 12.0 - 16.0 g/dL Final Hematocrit 09/08/2021 31.5 (A) 36.0 - 46.0 % Final Lab Draw on 09/05/2021 Component Date Value Ref Range Status Sodium 09/05/2021 146 (A) 135 - 145 mmol/L Final Potassium 09/05/2021 3.5 3.5 - 5.1 mmol/L Final Chloride 09/05/2021 112 (A) 98 - 108 mmol/L Final Bicarbonate 09/05/2021 26 21 - 32 mmol/L Final Anion Gap 09/05/2021 12 10 - 20 mmol/L Final Glucose 09/05/2021 106 (A) 65 - 99 mg/dL Final BUN 09/05/2021 46 (A) 8 - 25 mg/dL Final Creatinine 09/05/2021 4.47 (A) 0.60 - 1.20 mg/dL Final eGFR 09/05/2021 11 (A) >=60 mL/min/1.73 m2 Final BUN/Creatinine Ratio 09/05/2021 10.3 10.0 - 20.0 Final Albumin 09/05/2021 2.9 (A) 3.2 - 5.2 g/dL Final Calcium 09/05/2021 7.4 (A) 8.4 - 10.2 mg/dL Final Phosphorus 09/05/2021 4.6 (A) 2.8 - 4.1 mg/dL Final WBC 09/05/2021 9.07 4.50 - 11.00 K/mcL Final RBC 09/05/2021 3.33 (A) 4.00 - 5.20 M/mcL Final Hemoglobin 09/05/2021 9.5 (A) 12.0 - 16.0 g/dL Final Hematocrit 09/05/2021 31.2 (A) 36.0 - 46.0 % Final MCV 09/05/2021 93.7 80.0 - 100.0 fL Final MCH 09/05/2021 28.5 26.0 - 34.0 pg Final MCHC 09/05/2021 30.4 (A) 31.0 - 37.0 g/dL Final Platelets 09/05/2021 238 150 - 400 K/mcL Final RDW - CV 09/05/2021 14.9 (A) 11.6 - 14.8 % Final MPV 09/05/2021 11.1 9.4 - 12.4 fL Final Nucleated RBC 09/05/2021 0.0 % Final Nucleated RBC Abs 09/05/2021 0.00 0.00 - 0.00 K/mcL Final Nurse Only on 09/01/2021 Component Date Value Ref Range Status Hemoglobin 09/01/2021 9.7 (A) 12.0 - 16.0 g/dL Final Hematocrit 09/01/2021 31.0 (A) 36.0 - 46.0 % Final Nurse Only on 08/25/2021 Component Date Value Ref Range Status Hemoglobin 08/25/2021 8.4 (A) 12.0 - 16.0 g/dL Final Hematocrit 08/25/2021 26.6 (A) 36.0 - 46.0 % Final Nurse Only on 08/18/2021 Component Date Value Ref Range Status Sodium 08/18/2021 145 135 - 145 mmol/L Final Potassium 08/18/2021 3.9 3.5 - 5.1 mmol/L Final Chloride 08/18/2021 114 (A) 98 - 108 mmol/L Final Bicarbonate 08/18/2021 23 21 - 32 mmol/L Final Anion Gap 08/18/2021 12 10 - 20 mmol/L Final Glucose 08/18/2021 144 (A) 65 - 99 mg/dL Final BUN 08/18/2021 50 (A) 8 - 25 mg/dL Final Creatinine 08/18/2021 4.54 (A) 0.60 - 1.20 mg/dL Final eGFR 08/18/2021 11 (A) >=60 mL/min/1.73 m2 Final BUN/Creatinine Ratio 08/18/2021 11.0 10.0 - 20.0 Final Calcium 08/18/2021 8.2 (A) 8.4 - 10.2 mg/dL Final Iron 08/18/2021 68 30 - 160 mcg/dL Final Ferritin 08/18/2021 84 13 - 150 ng/mL Final TIBC 08/18/2021 268 225 - 430 mcg/dL Final Iron Saturation 08/18/2021 25 20 - 50 % Final Total Protein 08/18/2021 5.9 (A) 6.0 - 8.0 g/dL Final Albumin (ELP) 08/18/2021 3.1 3.1 - 5.5 g/dL Final Alpha 1 08/18/2021 0.2 0.2 - 0.5 g/dL Final Alpha 2 08/18/2021 0.9 0.4 - 1.1 g/dL Final Beta Globulin 08/18/2021 0.9 0.6 - 1.3 g/dL Final Gamma Globulin 08/18/2021 0.8 0.6 - 1.8 g/dL Final Reviewed by: 08/18/2021 Reviewed by Pathologist: Nicholas Cruz MD Final SPEP Interpretation 08/18/2021 Hypoproteinemia.Serum protein electrophoresis is insufficient to rule out a monoclonal protein. Recommend serum immunofixation and serum free light chains if clinicallyindicated. Final Ig [place] Free Light Chain 08/18/2021 76.97 (A) 3.30 - 19.40 mg/L Final Ig Lambda Free Light Chain 08/18/2021 31.43 (A) 5.71 - 26.30 mg/L Final [place]/Lambda FluidC Ratio 08/18/2021 2.45 (A) 0.26 - 1.65 Final Immunofixation, Serum 08/18/2021 Normal Normal Final SIFIX Interpretation 08/18/2021 No paraproteins detected. A negative serum immunofixation and/or serum protein electrophoresis is insufficient to rule out a monoclonal protein. Recommend serum free light chains if clinically indicated. Reviewed by Pathologist: Nicholas Cruz MD. Final IgG 08/18/2021 816 541 - 1,694 mg/dL Final IgM 08/18/2021 105 43 - 238 mg/dL Final IgA 08/18/2021 116 84 - 381 mg/dL Final Retic Percent 08/18/2021 1.8 % Final Retic Absolute 08/18/2021 0.050 0.025 - 0.070 M/mcL Final Imm Retic Fract 08/18/2021 8.4 2.3 - 15.9 % Final Retic Hgb Equivalent 08/18/2021 32.7 27.7 - 38.2 PG Final The cut-off for RET-He established in our institution is 27.7-38.2 pg/RBC. A value below this rangeis highly suggestive of iron deficiency. At values above 38.2 pg/RBC, patients are unlikely to respond to additional iron therapy. LDH 08/18/2021 386 (A) 100 - 250 U/L Final B12 08/18/2021 495 193 - 986 pg/mL Final Folate 08/18/2021 13.2 3.1 - 17.5 ng/mL Final Deficient <2.2 Borderline 2.2 - 3.0 Excessive >17.5 WBC 08/18/2021 6.73 4.50 - 11.00 K/mcL Final RBC 08/18/2021 2.79 (A) 4.00 - 5.20 M/mcL Final Hemoglobin 08/18/2021 8.1 (A) 12.0 - 16.0 g/dL Final Hematocrit 08/18/2021 26.0 (A) 36.0 - 46.0 % Final MCV 08/18/2021 93.2 80.0 - 100.0 fL Final MCH 08/18/2021 29.0 26.0 - 34.0 pg Final MCHC 08/18/2021 31.2 31.0 - 37.0 g/dL Final Platelets 08/18/2021 185 150 - 400 K/mcL Final RDW - CV 08/18/2021 14.0 11.6 - 14.8 % Final MPV 08/18/2021 10.9 9.4 - 12.4 fL Final Neutrophils 08/18/2021 65.7 % Final Lymphocytes 08/18/2021 21.5 % Final Monocytes 08/18/2021 9.2 % Final Eosinophils 08/18/2021 2.1 % Final Basophils 08/18/2021 1.2 % Final IG Percent 08/18/2021 0.30 % Final The IG parameter is the percentage of metamyelocytes, myelocytes and promyelocytes. An immature granulocyte count (IG) of 1% or more suggests the possibility of infection, an IG count of 3% is very likely related to an infection. Neutrophils Abs 08/18/2021 4.42 1.70 - 7.00 K/mcL Final Lymphocytes Abs 08/18/2021 1.45 0.90 - 4.00 K/mcL Final Monocytes Abs 08/18/2021 0.62 0.30 - 0.90 K/mcL Final Eosinophils Abs 08/18/2021 0.14 0.00 - 0.50 K/mcL Final Basophils Abs 08/18/2021 0.08 0.00 - 0.30 K/mcL Final IG Absolute 08/18/2021 0.02 0.00 - 0.30 K/mcL Final Nucleated RBC 08/18/2021 0.0 % Final Nucleated RBC Abs 08/18/2021 0.00 0.00 - 0.00 K/mcL Final Fecal Occult Bld 08/18/2021 Positive for Occult Blood (A) Negative for Occult Blood Final Assessment & Plan: 70-year-old female was found to have iron deficiency anemia and occult blood positive in the stool.She will need colonoscopy and EGD to rule out any occult GI blood loss. Colonoscopy and EGD are scheduled for October 18 at 9:30 AM at surgery center. Chris Stovall MD documented in this [id number] Telephone encounter Note* Telephone Encounter - Anne Marie Banuelos CNP - 09/05/2021 12:20 PM EDT Prescription approved. Sent to pharmacy on file. Pharmacy to notify patient when refill is available. [id number] Miscellaneous Notes* Telephone Encounter - Anne Marie Banuelos CNP - 09/05/2021 12:20 PM EDT Prescription approved. Sent to pharmacy on file. Pharmacy to notify patient when refill is available. documented in this [id number] History of Present illness Narrative* Jennifer Bazan RN - 08/25/2021 3:02 PM EDT Waited on labs prior to proceeding with treatment per treatment protocol. documented in this [id number] History of Present illness Narrative* Meenakshi Rider CNP - 08/14/2021 1:15 PM EDT Hematology/Oncology Clinic Consult Note Patient ID: Leslie Carcamo is a 70 y.o. female Reason for Consult: Anemia of Chronic Kidney Disease Stage V Date: 08/13/21 Referring Physician: Dr. Ela Muller PCP: Danny Rose MD Diagnosis: Right papillary renal cell carcinoma pT1a, pNX (stage I) s/p right nephrectomy Date of Diagnosis: 03/26/2018 Surgeon: Dr. Gaspar History of Present Illness: Leslie Carcamo is a 70 y.o. female with a history of renal cell carcinoma,hypertension, hyperlipidema, gout, glaucoma, and diabetes. The patient also has a history of right papillary renal cell carcinoma pT1a, pNX (stage I) s/p right nephrectomy. She was referred by Dr. Ela Muller for evaluation of anemia. The patient was first evaluated by nephrology in March 2019 for her chronic kidney disease secondary to diabetic nephropathy and hypertension. In addition to her right nephrectomy for renal cell carcinoma. Her spouse secondary to end-stage renal disease in August 2020. She has had multiple admissions for pulmonary edema and fluid overload. In July 2021 she was referred to [facility] for transplant. Since then she is canceled dialysis education because she had gout. She has been on iron supplement since at least May 2021. 07/19/21 hgb 8.3, hematocrit 26.2, MCV normal at 91, BUN 53, creatinine 4.53, egfr 11, calcium 8.2, phosphorus 4.9, 07/03/21 iron 73, ferritin 104, iron sat 26%. Her anemia dates back to March 2018 with a hemoglobin of 9.9. Since that time, her hemoglobin has fluctuated between 8 and 9, only over 10 one time during those 4 years. Colonoscopy 12/05/[address] Stovall with findings of 5 mm polyp in the cecum. Polyp was sessile. Removed with hot snare. Many small mouth diverticula were found in the sigmoid and descending colon.Exam was otherwise normal throughout the examined colon. Repeat colonoscopy in 5 years for surveillance. Past Medical and Surgical History Past Medical History: Diagnosis Date Chronic kidney disease (CKD), active medical management without dialysis, stage 5 (HCC) Diabetes mellitus, type 2 (HCC) Fibroid Glaucoma Gout History of echocardiogram History of stress test 2015 screening and patient reports was normal Hyperlipidemia Hypertension Renal cell carcinoma (HCC) 02/06/2018 Right papillary renal cell carcinoma pT1a, pNX (stage I) s/p right nephrectomy Past Surgical History: Procedure Laterality Date fatty tumor removed fibroid removed uterine HERNIA REPAIR HYSTERECTOMY NEPHRECTOMY PARTIAL ROBOTIC XI STAGE 2 Right 03/26/2018 Procedure: RIGHT ROBOTIC ASSISTED LAPAROSCOPIC PARTIAL NEPHRECTOMY LEVEL 2; Surgeon: Nasim Gaspar MD; Location: [facility] Main OR; Service: Urology Allergies and Medications No Known Allergies Current Outpatient Medications Medication Sig Dispense Refill amLODIPine (NORVASC) 10 MG tablet Take 1 tablet by mouth daily . aspirin 81 mg chewable tablet Chew and Swallow 81 mg daily . atorvastatin (LIPITOR) 40 MG tablet Take 1 (one) tablet (40 mg total) by mouth every morning Reasons: high cholesterol. 90 tablet 1 blood pressure monitor Kit 1 kit by Miscellaneous route 2 (two) times a day . 1 each 0 blood-glucose meter kit Patient tests bid . 1 each 0 calcium-vitamin D 500 mg(1,250mg) -200 unit per tablet TAKE 1 (ONE) TABLET BY MOUTH 2 (TWO) TIMES ADAY WITH MEALS . 60 tablet 11 carvediloL (COREG) 25 MG tablet TAKE 1 TABLET TWICE DAILY WITH MEALS 180 tablet 1 dulaglutide (Trulicity) 1.5 mg/0.5 mL Pen Inject 1.5 mg under the skin once a week . ferrous gluconate (FERGON) 324 MG tablet Take 1 tablet by mouth daily . FreeStyle Lite Strips strips TEST 3 TIMES DAILY DIRECTED 200 each 2 furosemide (LASIX) 40 MG tablet 1 tab and 2 tab alternate days . 60 tablet 11 hydrALAZINE (APRESOLINE) 50 MG tablet Take 1 tablet by mouth 3 (three) times a day . insulin degludec (Tresiba FlexTouch U-200) 200 unit/mL (3 mL) InPn Inject 10 (ten) Units under the skin nightly . 9 Syringe 11 latanoprost (XALATAN) 0.005 % ophthalmic solution multivitamin (THERAGRAN) per tablet Take 1 tablet by mouth every morning. predniSONE (DELTASONE) 20 MG tablet 1 TAB BY MOUTH DAILY FOR 3 DAYS FOR SEVERE GOUT No current facility-administered medications for this visit. Family and Social History Family History Problem Relation Age of Onset Hypertension Mother Brain cancer Mother No Known Problems Father Hypertension Sister Lung cancer Brother Hypertension Brother Non-Hodgkin's Lymphoma Daughter Stroke Daughter Hypertension Daughter Surgical complications Neg Hx Anesthesia problems Neg Hx Heart disease Neg Hx Clotting disorder Neg Hx Deep vein thrombosis Neg Hx Pulmonary embolism Neg Hx Social History Socioeconomic History Marital status: Tobacco Use Smoking status: Never Smoker Smokeless tobacco: Never Used Vaping Use Vaping Use: Never used Substance and Sexual Activity Alcohol use: Yes Comment: socially Drug use: No Sexual activity: Yes Review of Systems Review of Systems: General Constitutional: Denied fevers, chills, anorexia, weight loss, or night sweats + fatigue Eyes: denied blurry vision, glaucoma ENT: denied nasal drainage, sinus pressure Mouth: denied oral ulcers Endocrine: unusual weight loss, heat or cold intolerance, polyuria, polydipsia, or hair loss/gain Lymphatics: no new adenopathy in cervical, supraclavicular, axillary, inguinal regions Respiratory: no cough, + SOB with stairs CV: denied palpitations, chest pain/pressure, PND, orthopnea.+ Has had issues with edema GI: denied abd pain, n/v/d, constipation, melena. : denied dysuria, urgency, frequency or hematuria. Skin: no rashes or lesions Musculoskeletal: denied muscle/joint/bone pain Hematologic/lmmunologic: no adenopathy, bleeding, easy bruisiality or recurrent infection. Neurology: Denied new headaches, numbness or weakness of extremities Psych: denied anxiety, depression or mood swings Physical Exam ECOG 1 PACU Vitals 08/14/21 1323 BP: (!) 154/84 Pulse: (!) 54 Temp: 98.4 F (36.9 C) SpO2: 98% General Appearance: Alert, well developed, and in no acute distress. HEENT: Head - Normocephalic, atraumatic. No temporal wasting . Eyes - PHILIP bilaterally and EOMI, anicteric sclerae. Ears - normal external appearance, hearing intact. Nose - normal, no erythema. Throat - mucous membranes moist, pharynx without lesions. Neck: Supple, trachea midline. Cardiovascular: S1, S2 normal. No murmurs, rubs, clicks or gallops appreciated. No pedal edema. Respiratory: Lungs clear to auscultation, no wheezes, rales or rhonchi heard. Abdomen: Soft, non-tender, normal bowel sounds, non-distended, no hepatosplenomegaly Neurological: Grossly normal motor and sensory exam. No focal deficits. Musculoskeletal: No joint tenderness, deformity. Skin: Normal coloration and turgor. No rashes. Psych: Alert, oriented x 3. Normal mood and affect. Labs: Lab Results Component Value Date WBC 6.34 07/19/2021 HGB 8.3 (L) 07/19/2021 HCT 26.2 (L) 07/19/2021 MCV 91.0 07/19/2021 EXTMCV 88.4 05/08/2018 PLT 218 07/19/2021 RBC 2.88 (L) 07/19/2021 Lab Results Component Value Date GLUCOSE 140 (H) 07/19/2021 CALCIUM 8.2 (L) 07/19/2021 NA 145 07/19/2021 K 3.7 07/19/2021 CL 113 (H) 07/19/2021 BUN 53 (H) 07/19/2021 CREATININE 4.53 (H) 07/19/2021 Lab Results Component Value Date IRON 73 07/03/2021 TIBC 284 07/03/2021 FERRITIN 104 07/03/2021 Radiology: reviewed in EMR Assessment and Recommendations Assessment and recommendations: Leslie Carcamo is a 70 y.o. female with a history of renal cell carcinoma, hypertension, hyperlipidema, gout, glaucoma, and diabetes. The patient also has a history of right papillary renal cell carcinoma pT1a, pNX (stage I) s/p right nephrectomy. She was referred by Dr. Ela Muller for evaluation of anemia. Anemia of Stage V Chronic Kidney Disease, not on dialysis -The patient was first evaluated by nephrology in March 2019 for her chronic kidney disease secondary to diabetic nephropathy and hypertension. In addition to her right nephrectomy for renal cell carcinoma. Her spouse secondary to end-stage renal disease in August 2020. She has had multiple admissions for pulmonary edema and fluid overload. In July 2021 she was referred to [facility] for transplant. Since then she is canceled dialysis education because she had gout. She has been on ironsupplement since at least May 2021. -07/19/21 hgb 8.3, hematocrit 26.2, MCV normal at 91, BUN 53, creatinine 4.53, egfr 11, calcium 8.2, phosphorus 4.9, 07/03/21 iron 73, ferritin 104, iron sat 26%. Her anemia dates back to March 2018 with a hemoglobin of 9.9. Since that timeI, her hemoglobin has fluctuated between 8 and 9, only over 10 one time during those 4 years. -The patient demonstrates a normocytic anemia. Differential diagnoses include: Occult GI Blood loss, normal iron studies anemia, B-12 deficiency anemia, Anemia of chronic inflammation/disease, Anemiaof chronic kidney injury, Plasma cell dyscrasia. -We will obtain stool for occult blood, B-12/folate, serum and urine immunofixation, serum quantitative immunoglobulins, serum free light chains, SPEP, reticulocyte count, LDH - We will initiate the patient on Retacrit 20,000 units weekly for hemoglobin less than 10, and titrate dose appropriately. Risks and benefits reviewed with patient. She is in agreement to proceed Education Provided Education/Instructions given to: (x) Patient (_) Spouse (_) Parent (_) Other Barriers to Learning: (x) None (_) Yes (identify):_ Content: (x) Refer to note above (_)Other (identify):_ Evaluation/Outcome: (x) Verbalized understanding (_) Demonstrated understanding (_) Other:_ DARRICK Wang- documented in this [id number] Instructions* Patient Instructions* Meenakshi Rider CNP - 08/14/2021 9:09 AM EDT I have ordered at stool sample to check for microscopic blood in your stool. You do not have to provide a sample today. When you stop at the lab, they will give you several items to collect your sample at home. Once you have collected your sample, you will return it to the laboratory. Schedule for Retacrit injections. 20,000 units to start weekly for hemoglobin less than 10 You will have your blood drawn, and if the hemoglobin is less than 10, you will receive your Retacrit injection. If your hemoglobin is over 10; you will not receive the injection that week. I will send orders for insurance authorization. After we receive authorization, the [facility] will call you to schedule your appointments. Our Infusion Clinic is located just inside and to the right of the main entrance to [facility]. Follow up in 2 months to evaluate your response to treatment documented in this [id number] History of Present illness Narrative* Ryan Hardin MD - 06/19/2021 2:00 PM EST History of Present Illness Type 2 diabetes: This is a follow-up visit to the office. She was diagnosed with diabetes in 2011. Family history of diabetes includes her daughter. Not taking metformin due to CKD. Currently taking Trulicity 1.5 mg weekly and Tresiba 12 units daily. She has been holding Tresiba if blood sugar <150 mg/dL at bedtime, always basing Tresiba off bedtime sugars. Denies any hypoglycemic symptoms. She is able to verbalize appropriate treatment of hypoglycemia and also does have nasal glucagon available at home (previously prescribed to her ). Does not see a valve pipe irrigator and denies any symptoms of peripheral neuropathy. Last visit, we increased Trulicity to 1.5 mg weekly, since that time hemoglobin A1c has improved from 7.7% to 6.9%, time in target range = 99% In reviewing the EMR, in 2018 her A1c ranged from 10.5 11.5%, She does have chronic anemia with H/H = down to 8.4, following up with nephrology, also significantly reduced GFR = 13, urine albumin creatinine ratio significantly elevated at over 4000 mg/g. She does follow with nephrology in [place] and reports she had a recent follow-up with them. She was able to get prescription assistance for Trulicity. Tolerating well. Hypertension: Blood pressure above target today. Follows closely with nephrology for blood pressurecontrol. She is on JAXON therapy. Hyperlipidemia: LDL = 84, triglyceride = 125. Currently on atorvastatin 40 mg daily. Review of Systems Pierre Pro sensor was removed from patients arm without difficulty. Sensor filament intact, without deformity. Skin intact without any compromise noted Nurse Note: Review of Systems Constitutional: Negative for fatigue and unexpected weight change. Eyes: Negative for visual disturbance. Respiratory: Positive for shortness of breath. Negative for cough. Cardiovascular: Negative for chest pain and leg swelling. Gastrointestinal: Positive for constipation. Negative for diarrhea, nausea and vomiting. Endocrine: Negative for polydipsia and polyuria. Skin: Negative for rash. Neurological: Negative for numbness. Psychiatric/Behavioral: Negative for sleep disturbance. Patient has not seen childbirth educator Nursing Assessment: Physical Exam Vitals: Blood pressure 141/66, pulse 60, height 1.651 m (5' 5), weight 85 kg (187 lb 6.4 oz). Physical Exam Constitutional: Appearance: Normal appearance. HENT: Head: Normocephalic. Neck: Vascular: No carotid bruit. Cardiovascular: Rate and Rhythm: Normal rate and regular rhythm. Pulmonary: Effort: Pulmonary effort is normal. Breath sounds: Normal breath sounds. Musculoskeletal: Cervical back: Neck supple. Lymphadenopathy: Cervical: No cervical adenopathy. Skin: General: Skin is warm and dry. Neurological: General: No focal deficit present. Mental Status: She is alert and oriented to person, place, and time. Psychiatric: Mood and Affect: Mood normal. Behavior: Behavior normal. Thought Content: Thought content normal. Judgment: Judgment normal. Foot exam: +1/barely palpable dorsalis pedis pulses bilaterally. Good foot care. Intact monofilament sensation bilaterally. Neurological Exam Mental Status Alert. Assessment and Plan Type 2 diabetes: A1c has improved significantly, without hypoglycemia. We discussed in detail her CGM as well as her log book. Fantastic response, we will continue same. Follow-up in 4 months with labs prior. Hypertension: Blood pressure above goal today. Managed by PCP/nephrology. Hyperlipidemia: Lipid panel stable. Continue atorvastatin. * Lulu Redd - 06/19/2021 2:00 PM EST Nurse Note: Review of Systems Constitutional: Negative for fatigue and unexpected weight change. Eyes: Negative for visual disturbance. Respiratory: Positive for shortness of breath. Negative for cough. Cardiovascular: Negative for chest pain and leg swelling. Gastrointestinal: Positive for constipation. Negative for diarrhea, nausea and vomiting. Endocrine: Negative for polydipsia and polyuria. Skin: Negative for rash. Neurological: Negative for numbness. Psychiatric/Behavioral: Negative for sleep disturbance. Patient has not seen childbirth educator Nursing Assessment: Physical Exam * Lulu Redd - 06/19/2021 2:00 PM EST Pierre Pro sensor was removed from patients arm without difficulty. Sensor filament intact, without deformity. Skin intact without any compromise noted documented in this [facility]02-07-2022 Procedure note* Ryan Hardin MD - 06/19/2021 2:00 PM EST Associated Order(s): CT CONTINUOUS GLUCOSE MONITORING ANALYSIS I&R CGM download shows 99% of blood sugars at target, 1% high, GMI = 5.9%. Basal insulin dose looks appropriate. Minimal postprandial excursions on higher dose GLP-1 therapy. Based on CGM download, regimen is working quite well, we will continue same. Positive feedback given to patient. documented in this [facility]01-27-2022 History of Present illness Narrative* Lulu Redd - 06/08/2021 2:00 PM EST Pierre placed on patient's upper (Left) arm without difficulty. FAQ Sheet reviewed and given to patient. Patient instructed on the care and risks of the sensor. Blood glucose log reviewed and given to patient. Patient instructed to continue to check blood sugar as directed. Patient voiced understanding and will call the clinic with any questions or concerns. Lot #[id number] Serial #[id number] Expiration date:10/10/2021 documented in this [facility]01-26-2022 Miscellaneous Notes* Assessment & Plan Note - Danny Rose MD - 06/07/2021 10:21 PM EST Associated Problem(s): Stage 4 chronic kidney disease (HCC) Chronic, stable. Medications recently adjusted for her Hypertension. Continue with diabetic control. * Assessment & Plan Note - Danny Rose MD - 06/07/2021 10:17 PM EST Associated Problem(s): Essential hypertension Chronic, uncontrolled. Recommend tighter control with a goal < 130/80. She is following with nephrology. Medications were adjusted recently. Currently on amlodipine, hydralazine now 50 mg TID and per patient request the benazepril was discontinued. Also on daily Lasix and Coreg. documented in this [id number] History of Present illness Narrative* Danny Rose MD - 06/07/2021 4:47 PM EST Leslie Carcamo is a 70 y.o. female Assessment/Plan: Problem List Items Addressed This Visit Cardiovascular and Mediastinum Essential hypertension - Primary Chronic, uncontrolled. Recommend tighter control with a goal < 130/80. She is following with nephrology. Medications were adjusted recently. Currently on amlodipine, hydralazine now 50 mg TID and per patient request the benazepril was discontinued. Also on daily Lasix and Coreg. Relevant Medications amLODIPine (NORVASC) 10 MG tablet hydrALAZINE (APRESOLINE) 50 MG tablet Genitourinary Stage 4 chronic kidney disease (HCC) Chronic, stable. Medications recently adjusted for her Hypertension. Continue with diabetic control. Return in about 3 months (around 09/05/2021) for HTN/CKD follow up. Leslie Carcamo is a 70 y.o. female who presents for Chief Complaint Patient presents with Hypertension HPI She has a history of diabetes, Hypertension and chronic kidney disease stage 4. She presents to follow up. Her blood pressure has been ok at home she states. Her medications were adjusted by nephology. She is taking them as prescribed. Hypertension Home monitoring: Yes < 150/90 Medications and adherence: yes, recent adjustments Side effects to medication: none Pertinent negatives include no chest pain, shortness of breath, visual changes, palpitations or dysuria. Gout- no acute flare at this time. Patient Active Problem List Diagnosis H/O partial nephrectomy Stage 4 chronic kidney disease (HCC) Anemia COAG (chronic open-angle glaucoma) Dry eyes, bilateral Essential hypertension Epiphora, unspecified as to cause Mixed hyperlipidemia Type 2 diabetes mellitus without retinopathy (HCC) Chronic midline low back pain without sciatica Bradycardia Class 1 obesity due to excess calories with serious comorbidity and body mass index (BMI) of 30.0 to 30.9 in adult Type 2 diabetes 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, with long-term current use of insulin(HCC) Gout Past Surgical History: Procedure Laterality Date CARDIAC CATHETERIZATION fatty tumor removed fibroid removed uterine HERNIA REPAIR HYSTERECTOMY NEPHRECTOMY PARTIAL ROBOTIC XI STAGE 2 Right 03/26/2018 Procedure: RIGHT ROBOTIC ASSISTED LAPAROSCOPIC PARTIAL NEPHRECTOMY LEVEL 2; Surgeon: Nasim Gaspar MD; Location: [facility] Main OR; Service: Urology Family History Problem Relation Age of Onset Hypertension Mother Cancer Brother Hypertension Brother Cancer Daughter Stroke Son Hypertension Sister No Known Problems Father Surgical complications Neg Hx Anesthesia problems Neg Hx Heart disease Neg Hx Clotting disorder Neg Hx Deep vein thrombosis Neg Hx Pulmonary embolism Neg Hx Social History Tobacco Use Smoking status: Never Smoker Smokeless tobacco: Never Used Vaping Use Vaping Use: Never used Substance Use Topics Alcohol use: Yes Comment: socially Drug use: No Current Outpatient Medications Medication Sig Dispense Refill amLODIPine (NORVASC) 10 MG tablet Take 1 tablet by mouth daily . aspirin 81 mg chewable tablet Chew and Swallow 81 mg daily . atorvastatin (LIPITOR) 40 MG tablet Take 1 (one) tablet (40 mg total) by mouth every morning Reasons: high cholesterol. 90 tablet 1 blood pressure monitor Kit 1 kit by Miscellaneous route 2 (two) times a day . 1 each 0 blood-glucose meter kit Patient tests bid . 1 each 0 calcium-vitamin D 500 mg(1,250mg) -200 unit per tablet TAKE 1 (ONE) TABLET BY MOUTH 2 (TWO) TIMES ADAY WITH MEALS . 60 tablet 11 carvediloL (COREG) 25 MG tablet TAKE 1 TABLET TWICE DAILY WITH MEALS 180 tablet 1 dulaglutide (Trulicity) 1.5 mg/0.5 mL Pen Inject 1.5 mg under the skin once a week . ferrous gluconate (FERGON) 324 MG tablet Take 1 tablet by mouth daily . FreeStyle Lite Strips strips TEST 3 TIMES DAILY DIRECTED 200 each 2 furosemide (LASIX) 40 MG tablet 1 tab and 2 tab alternate days . 60 tablet 11 hydrALAZINE (APRESOLINE) 50 MG tablet Take 1 tablet by mouth 3 (three) times a day . insulin degludec (Tresiba FlexTouch U-200) 200 unit/mL (3 mL) InPn Inject 10 (ten) Units under the skin nightly . 9 Syringe 11 latanoprost (XALATAN) 0.005 % ophthalmic solution multivitamin (multivitamin) per tablet Take 1 tablet by mouth every morning. No current facility-administered medications for this visit. Review of Systems Constitutional: Negative for diaphoresis and fatigue. Eyes: Negative for visual disturbance. Respiratory: Negative for shortness of breath. Cardiovascular: Negative for chest pain and palpitations. Gastrointestinal: Negative. Genitourinary: Negative. Neurological: Negative for dizziness and headaches. Physical Exam: BP (!) 161/82 (BP Location: Left arm, Patient Position: Sitting, BP Cuff Size: Adult) Pulse (!) 53 Temp 97.1 F (36.2 C) (Temporal) Resp 16 Ht 5' 6 Wt 85.1 kg (187 lb 11.2 oz) SpO2 98% BMI 30.30 kg/m Wt Readings from Last 3 Encounters: 06/07/21 85.1 kg (187 lb 11.2 oz) 05/08/21 85.8 kg (189 lb 1.6 oz) 03/17/21 86.2 kg (190 lb) BP Readings from Last 3 Encounters: 06/07/21 (!) 161/82 05/24/21 149/64 05/08/21 (!) 151/81 Physical Exam Vitals reviewed. Constitutional: General: She is not in acute distress. Appearance: She is not ill-appearing. HENT: Head: Normocephalic. Eyes: Conjunctiva/sclera: Conjunctivae normal. Cardiovascular: Rate and Rhythm: Normal rate. Pulmonary: Effort: Pulmonary effort is normal. No respiratory distress. Skin: Findings: No rash. Neurological: Mental Status: She is alert and oriented to person, place, and time. Psychiatric: Mood and Affect: Mood normal. Behavior: Behavior normal. Thought Content: Thought content normal. Please note: Portions of this chart may have been created with Apse voice recognition software. Occasional wrong-word or sound-like substitutions may have occurred due to inherent limitations of the voice recognition software. Please read the chart carefully and recognize, using context, where the substitutions have occurred. For any new medications prescribed today, patient was educated about indications for the medication, how to take the medication and potential side effects of the medications. documented in this [id number] Instructions* Patient Instructions* Danny Rose MD - 06/07/2021 4:18 PM EST Your blood pressure goal < 140/90 documented in this [id number] History of Present illness Narrative* Keely Alvarez LPN - 05/24/2021 2:53 PM EST Patient here for BP recheck. Patient said she is still getting higher BP readings at home. She did not bring in any readings today but said they've been 170-179/64 or something. Vitals obtained today. Patient advised I will go and talk to Dr. Rose. Patient asked about lab work or something too. Told her today was a BP recheck but i'll ask Dr. Rose about that as well. Spoke with Dr. Rose and advised of above. She said BP was good and patient's cuff is reading toohigh. I asked about labs and Dr. Rose looked and said Kidney function was stable but slightly worse and she would need to follow up with Dr. Muller. She also said Uric Acid level was high and this confirms gout and patient is to continue to follow up with her Business Support Specialist. She wants patient to return in 2 weeks, for follow up labs as she wants to look into a few things, and patient is to cancel Appointment with Dr. Hamilton on 06/15/21. Advised patient of above and that Dr. Rose wanted to see her in a few weeks to discuss lab results. Appointment put on hold for patient for 06/07/21 at 4 pm. Patient verbalized understanding and denies further questions or concerns. documented in this [id number] Miscellaneous Notes* Assessment & Plan Note - Danny Rose MD - 05/08/2021 6:40 PM EST Associated Problem(s): Gout Chronic, previous provider was checking a uric acid, will order. Starting prophylaxis may be complicated due to her kidney disease. Do not recommend starting medications like allopurinol. Looks like she was treated with colchicine which helped. She should continue to work with podiatry * Assessment & Plan Note - Danny Rose MD - 05/08/2021 6:38 PM EST Associated Problem(s): Type 2 diabetes 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, with long-termcurrent use of insulin (HCC) Chronic, uncontrolled. Managed by endocrinology (Nnamdi). Last Ha1c was 7.7. Goal < 7. She is adjusting her medications on her own. I stressed the importance of discussing with endo. Can consider taking in insulin in the morning if he is worried about lows. Recommend that she cuts the insulin inhalf vs not taking it on days when she doesn't eat as well. * Assessment & Plan Note - Danny Rose MD - 05/08/2021 6:36 PM EST Associated Problem(s): Stage 4 chronic kidney disease (HCC) Discussed in detail causes of renal disease including uncontrolled Hypertension, uncontrolled diabetes. Recommend that we control these conditions better. This is our first encounter so I am having her return so I can assess her BP better. I will hold off on adjusting the Lasix. I will discuss thiswith Dr. Muller. GFR has been stable the past 9 months at 15-20. She has associated anemia. I will recheck her renal function since being back on the higher dose of lasix, documented in this [id number] Instructions* Patient Instructions* Danny Rose MD - 05/08/2021 2:58 PM EST You should always take your insulin. If your blood sugar is < 120 and you are afraid of it beingtoo low at night, take only half the insulin or try taking it in the morning. Blood pressure- 130/80 documented in this [id number] History of Present illness Narrative* Danny Rose MD - 05/08/2021 2:36 PM EST Leslie Carcamo is a 70 y.o. female Assessment/Plan: Problem List Items Addressed This Visit Endocrine Type 2 diabetes 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, with long-term current use of insulin(HCC) Chronic, uncontrolled. Managed by endocrinology (Nnamdi). Last Ha1c was 7.7. Goal < 7. She is adjusting her medications on her own. I stressed the importance of discussing with endo. Can consider taking in insulin in the morning if he is worried about lows. Recommend that she cuts the insulin inhalf vs not taking it on days when she doesn't eat as well. Genitourinary Stage 4 chronic kidney disease (HCC) - Primary Discussed in detail causes of renal disease including uncontrolled Hypertension, uncontrolled diabetes. Recommend that we control these conditions better. This is our first encounter so I am having her return so I can assess her BP better. I will hold off on adjusting the Lasix. I will discuss thiswith Dr. Muller. GFR has been stable the past 9 months at 15-20. She has associated anemia. I will recheck her renal function since being back on the higher dose of lasix, Relevant Orders Comprehensive Metabolic Panel (Completed) Other Gout Chronic, previous provider was checking a uric acid, will order. Starting prophylaxis may be complicated due to her kidney disease. Do not recommend starting medications like allopurinol. Looks like she was treated with colchicine which helped. She should continue to work with podiatry Relevant Orders Uric Acid (Completed) Return in about 2 weeks (around 05/22/2021) for Recheck-HTN nurse visit. Leslie Carcamo is a 70 y.o. female who presents for Chief Complaint Patient presents with [facility] Per Patient Last mammogram done in August at [facility] HPI She has a history of diabetes, Hypertension and chronic kidney disease stage 4. She presents to [facility]. She is concerned about her kidney function and being on a high dose of Lasix. Diabetes mellitus Home monitoring: yes, if BG < 200 at night, she does not take her insulin. Worried about having lows. Medication adherence: yes Any side effects to medication: no Nutrition and exercise: none Statin use: yes Last A1c: 7.7 Last [facility] exam [facility] Denies any numbness in your hands and feet. Mild tingling. Hypertension Home monitoring: yes has been high due to pneumonia but getting better Medications and adherence: yes, amlodipine/ benazepril, hydrochlorothiazide and coreg Side effects to medication: none Pertinent negatives include no chest pain, shortness of breath, visual changes, palpitations or dysuria. Gout- can occur in both feet. She has had good success with colchicine. Never on allopurinol. Saw Dr. Espinoza. Gentle foot care. Patient Active Problem List Diagnosis H/O partial nephrectomy Stage 4 chronic kidney disease (HCC) Anemia COAG (chronic open-angle glaucoma) Dry eyes, bilateral Essential hypertension Epiphora, unspecified as to cause Mixed hyperlipidemia Type 2 diabetes mellitus without retinopathy (HCC) Chronic midline low back pain without sciatica Bradycardia Class 1 obesity due to excess calories with serious comorbidity and body mass index (BMI) of 30.0 to 30.9 in adult Type 2 diabetes 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, with long-term current use of insulin(HCC) Gout Past Surgical History: Procedure Laterality Date CARDIAC CATHETERIZATION fatty tumor removed fibroid removed uterine HERNIA REPAIR HYSTERECTOMY NEPHRECTOMY PARTIAL ROBOTIC XI STAGE 2 Right 03/26/2018 Procedure: RIGHT ROBOTIC ASSISTED LAPAROSCOPIC PARTIAL NEPHRECTOMY LEVEL 2; Surgeon: Nasim Gaspar MD; Location: [facility] Main OR; Service: Urology Family History Problem Relation Age of Onset Hypertension Mother Cancer Brother Hypertension Brother Cancer Daughter Stroke Son Hypertension Sister No Known Problems Father Surgical complications Neg Hx Anesthesia problems Neg Hx Heart disease Neg Hx Clotting disorder Neg Hx Deep vein thrombosis Neg Hx Pulmonary embolism Neg Hx Social History Tobacco Use Smoking status: Never Smoker Smokeless tobacco: Never Used Vaping Use Vaping Use: Never used Substance Use Topics Alcohol use: Yes Comment: socially Drug use: No Current Outpatient Medications Medication Sig Dispense Refill amLODIPine-benazepril (LOTREL) 10-40 mg per capsule TAKE 1 CAPSULE BY MOUTH EVERY DAY 90 capsule 3 aspirin 81 mg chewable tablet Chew and Swallow 81 mg daily . atorvastatin (LIPITOR) 40 MG tablet Take 1 (one) tablet (40 mg total) by mouth every morning Reasons: high cholesterol. 90 tablet 1 blood pressure monitor Kit 1 kit by Miscellaneous route 2 (two) times a day . 1 each 0 blood-glucose meter kit Patient tests bid . 1 each 0 calcium-vitamin D 500 mg(1,250mg) -200 unit per tablet TAKE 1 (ONE) TABLET BY MOUTH 2 (TWO) TIMES ADAY WITH MEALS . 60 tablet 11 carvediloL (COREG) 25 MG tablet TAKE 1 TABLET TWICE DAILY WITH MEALS 180 tablet 1 dulaglutide (Trulicity) 1.5 mg/0.5 mL Pen Inject 1.5 mg under the skin once a week . FreeStyle Lite Strips strips TEST 3 TIMES DAILY DIRECTED 200 each 2 furosemide (LASIX) 40 MG tablet 1 tab and 2 tab alternate days . 60 tablet 11 hydrALAZINE (APRESOLINE) 25 MG tablet Take 1 (one) tablet (25 mg total) by mouth 3 (three) times a day . 270 tablet 3 insulin degludec (Tresiba FlexTouch U-200) 200 unit/mL (3 mL) InPn Inject 10 (ten) Units under the skin nightly . 9 Syringe 11 latanoprost (XALATAN) 0.005 % ophthalmic solution multivitamin (multivitamin) per tablet Take 1 tablet by mouth every morning. ferrous gluconate (FERGON) 324 MG tablet Take 1 tablet by mouth daily . No current facility-administered medications for this visit. Review of Systems Constitutional: Negative for appetite change, chills, diaphoresis and fatigue. Eyes: Negative for visual disturbance. Respiratory: Negative for cough and shortness of breath. Cardiovascular: Positive for leg swelling. Negative for chest pain and palpitations. Gastrointestinal: Negative for abdominal pain, nausea and vomiting. Genitourinary: Negative for dysuria. Musculoskeletal: Negative for back pain. Skin: Negative for rash and wound. Neurological: Negative for dizziness, weakness and headaches. Psychiatric/Behavioral: Negative for confusion and sleep disturbance. Physical Exam: BP (!) 151/81 (BP Location: Left arm, Patient Position: Sitting, BP Cuff Size: Adult) Pulse (!) 50 Temp 97.6 F (36.4 C) (Temporal) Resp 16 Ht 5' 6 Wt 85.8 kg (189 lb 1.6 oz) SpO2 97% BMI 30.52 kg/m Wt Readings from Last 3 Encounters: 05/08/21 85.8 kg (189 lb 1.6 oz) 03/17/21 86.2 kg (190 lb) 02/06/21 85.7 kg (189 lb) BP Readings from Last 3 Encounters: 05/08/21 (!) 151/81 04/22/21 (!) 187/65 03/17/21 (!) 169/83 Physical Exam Vitals reviewed. Constitutional: General: She is not in acute distress. Appearance: She is well-developed. She is not diaphoretic. Eyes: Conjunctiva/sclera: Conjunctivae normal. Neck: Thyroid: No thyromegaly. Vascular: No carotid bruit. Cardiovascular: Rate and Rhythm: Normal rate and regular rhythm. Pulses: Normal pulses. Heart sounds: Normal heart sounds. No murmur heard. Pulmonary: Effort: Pulmonary effort is normal. No respiratory distress. Breath sounds: Normal breath sounds. Abdominal: General: Bowel sounds are normal. There is no distension. Palpations: Abdomen is soft. Tenderness: There is no abdominal tenderness. Musculoskeletal: Cervical back: Normal range of motion. Comments: Trace swelling in the LE Lymphadenopathy: Cervical: No cervical adenopathy. Skin: Capillary Refill: Capillary refill takes less than 2 seconds. Neurological: Mental Status: She is alert. Psychiatric: Mood and Affect: Mood normal. Behavior: Behavior normal. Please note: Portions of this chart may have been created with Apse voice recognition software. Occasional wrong-word or sound-like substitutions may have occurred due to inherent limitations of the voice recognition software. Please read the chart carefully and recognize, using context, where the substitutions have occurred. For any new medications prescribed today, patient was educated about indications for the medication, how to take the medication and potential side effects of the medications. Depression Screening 03/26/2018 07/21/2020 05/08/2021 Little interest or pleasure in doing things 0 0 1 Feeling down, depressed, or hopeless 0 0 1 PHQ-2 Total Score 0 0 2 Trouble falling or staying asleep, or sleeping too much - 0 1 Feeling tired or having little energy - 0 2 Poor appetite or overeating - 0 2 Feeling bad about yourself - or that you are a failure or have let yourself or your family down - 00 Trouble concentrating on things, such as reading the newspaper or watching television - 0 0 Moving or speaking so slowly that other people could have noticed. Or the opposite - being so fidgety or restless that you have been moving around a lot more than usual - 0 1 Thoughts that you would be better off , or of hurting yourself in some way - 0 0 PHQ-9 Total Score - 0 8 If you checked off any problems, how difficult have these problems made it for you to do your work,take care of things at home, or get along with other people? - - Not difficult at all documented in this [id number] History of Present illness Narrative* Kelby Hamilton MD - 03/21/2021 9:09 PM EST Images from the original note were not included. Office Progress Notes Patient Name: Leslie Carcamo Date : 03/17/2021 MR #: [id number] : 1950 Summary and Plan Problem List Items Addressed This Visit None Visit Diagnoses Acute gout due to renal impairment involving multiple sites - Primary Relevant Medications colchicine 0.6 mg tablet Other Relevant Orders Uric Acid Edema of both lower extremities Relevant Medications furosemide (LASIX) 40 MG tablet HPI 70-year-old female with history of diabetes hypertension chronic kidney disease seen for routine follow-up. Patient's main complaint is foot pain. Patient has flareup of gout discussed about gout at length. Treatment options discussed risk factors discussed particularly diuretic being a risk factor. Patient's edema is decreased. Blood pressure initially was high with automatic cuff manual blood pressure was better. Patient's diabetes is under better control denies polyuria polydipsia polyphagia discussed about eye exam and foot examination. Discussed about health maintenance including but not limited to vaccination and cancer screening. Review of Systems : Review of Systems Constitutional: Negative for activity change, appetite change, chills, diaphoresis, fatigue, fever and unexpected weight change. HENT: Negative for congestion. Eyes: Negative for visual disturbance. Respiratory: Negative for apnea, cough, choking, chest tightness, shortness of breath, wheezing andstridor. Cardiovascular: Negative for chest pain, palpitations and leg swelling. Gastrointestinal: Negative for abdominal pain, constipation, diarrhea and nausea. Genitourinary: Negative for difficulty urinating. Musculoskeletal: Positive for arthralgias. Skin: Negative for rash. Neurological: Negative for weakness. Psychiatric/Behavioral: The patient is not nervous/anxious. Past Medical, Surgical, Family, and Social History: Past Medical History: Diagnosis Date Diabetes mellitus (HCC) Diabetes mellitus, type 2 (HCC) Fibroid Glaucoma Gout History of echocardiogram History of stress test 2016 screening and patient reports was normal Hyperlipidemia Hypertension Renal mass, right 02/06/2018 Past Surgical History: Procedure Laterality Date CARDIAC CATHETERIZATION fatty tumor removed fibroid removed uterine HERNIA REPAIR HYSTERECTOMY NEPHRECTOMY PARTIAL ROBOTIC XI STAGE 2 Right 03/26/2018 Procedure: RIGHT ROBOTIC ASSISTED LAPAROSCOPIC PARTIAL NEPHRECTOMY LEVEL 2; Surgeon: Nasim Gaspar MD; Location: [facility] Main OR; Service: Urology Family History Problem Relation Age of Onset Hypertension Mother Cancer Brother Hypertension Brother Cancer Daughter Stroke Son Hypertension Sister No Known Problems Father Surgical complications Neg Hx Anesthesia problems Neg Hx Heart disease Neg Hx Clotting disorder Neg Hx Deep vein thrombosis Neg Hx Pulmonary embolism Neg Hx Social History Socioeconomic History Marital status: Spouse name: Not on file Number of children: Not on file Years of education: Not on file Highest education level: Not on file Occupational History Not on file Tobacco Use Smoking status: Never Smoker Smokeless tobacco: Never Used Vaping Use Vaping Use: Never used Substance and Sexual Activity Alcohol use: Yes Comment: socially Drug use: No Sexual activity: Yes Other Topics Concern Not on file Social History Narrative Not on file Social Determinants of Health Financial Resource Strain: Difficulty of Paying Living Expenses: Not on file Food Insecurity: Worried About Running Out of Food in the Last Year: Not on file Ran Out of Food in the Last Year: Not on file Transportation Needs: Lack of Transportation (Medical): Not on file Lack of Transportation (Non-Medical): Not on file Physical Activity: Days of Exercise per Week: Not on file Minutes of Exercise per Session: Not on file Stress: Feeling of Stress : Not on file Social Connections: Frequency of Communication with Friends and Family: Not on file Frequency of Social Gatherings with Friends and Family: Not on file Attends Church Services: Not on file Active Member of Clubs or Organizations: Not on file Attends Club or Organization Meetings: Not on file Marital Status: Not on file Housing Stability: Unable to Pay for Housing in the Last Year: Not on file Number of Places Lived in the Last Year: Not on file Unstable Housing in the Last Year: Not on file Allergies and Medications: I have reviewed the patient's allergies. Patient has no known allergies. Medications: Patient's Medications New Prescriptions COLCHICINE 0.6 MG TABLET Take 1 (one) tablet (0.6 mg total) by mouth daily . Previous Medications AMLODIPINE-BENAZEPRIL (LOTREL) 10-40 MG PER CAPSULE TAKE 1 CAPSULE BY MOUTH EVERY DAY ASPIRIN 81 MG CHEWABLE TABLET Chew and Swallow 81 mg daily . ATORVASTATIN (LIPITOR) 40 MG TABLET Take 1 (one) tablet (40 mg total) by mouth every morning Reasons: high cholesterol. BLOOD PRESSURE MONITOR KIT 1 kit by Miscellaneous route 2 (two) times a day . BLOOD-GLUCOSE METER KIT Patient tests bid . CALCIUM-VITAMIN D 500 MG(1,250MG) -200 UNIT PER TABLET TAKE 1 (ONE) TABLET BY MOUTH 2 (TWO) TIMES ADAY WITH MEALS . CARVEDILOL (COREG) 25 MG TABLET TAKE 1 TABLET TWICE DAILY WITH MEALS DULAGLUTIDE (TRULICITY) 1.5 MG/0.5 ML PEN Inject 1.5 mg under the skin once a week . FERROUS GLUCONATE (FERGON) 324 MG TABLET Take 1 tablet by mouth daily . FREESTYLE LITE STRIPS STRIPS TEST 3 TIMES DAILY DIRECTED HYDRALAZINE (APRESOLINE) 25 MG TABLET Take 1 (one) tablet (25 mg total) by mouth 3 (three) times a day . INSULIN DEGLUDEC (TRESIBA FLEXTOUCH U-200) 200 UNIT/ML (3 ML) INPN Inject 10 (ten) Units under the skin nightly . LATANOPROST (XALATAN) 0.005 % OPHTHALMIC SOLUTION MULTIVITAMIN (MULTIVITAMIN) PER TABLET Take 1 tablet by mouth every morning. Modified Medications Modified Medication Previous Medication FUROSEMIDE (LASIX) 40 MG TABLET furosemide (LASIX) 40 MG tablet 1 tab and 2 tab alternate days . TAKE 2 (TWO) TABLETS (80 MG TOTAL) BY MOUTH DAILY . Discontinued Medications No medications on file OARRS/NARxCHECK Report Received and Assessed: No data found Date controlled substance agreement signed: No data found Date of last drug screen: No data found Functional Assessment: No data found The 10-year ASCVD risk score (Ashley QUINONEZ Jr., et al., 2013) is: 35.1% Values used to calculate the score: Age: 70 years Sex: Female Is Non- : Yes Diabetic: Yes Tobacco smoker: No Systolic Blood Pressure: 169 mmHg Is BP treated: Yes HDL Cholesterol: 58 mg/dL Total Cholesterol: 167 mg/dL Physical Exam: Vital Signs: BP (!) 169/83 Pulse (!) 56 Temp 98.6 F (37 C) (Temporal) Ht 5' 6 Wt 86.2 kg (190 lb) SpO2 96% BMI 30.67 kg/m Physical Exam Vitals reviewed. Constitutional: Appearance: Normal appearance. She is obese. HENT: Head: Normocephalic. Right Ear: External ear normal. Left Ear: External ear normal. Nose: Nose normal. Mouth/Throat: Mouth: Mucous membranes are moist. Pharynx: Oropharynx is clear. Eyes: Extraocular Movements: Extraocular movements intact. Conjunctiva/sclera: Conjunctivae normal. Pupils: Pupils are equal, round, and reactive to light. Cardiovascular: Rate and Rhythm: Normal rate. Pulses: Normal pulses. Dorsalis pedis pulses are 2+ on the right side and 2+ on the left side. Posterior tibial pulses are 2+ on the right side and 2+ on the left side. Heart sounds: Normal heart sounds. Pulmonary: Effort: Pulmonary effort is normal. Breath sounds: Normal breath sounds. Abdominal: General: Bowel sounds are normal. Musculoskeletal: General: Normal range of motion. Cervical back: Neck supple. Right foot: Normal range of motion. Prominent metatarsal heads present. No deformity. Left foot: Normal range of motion. Prominent metatarsal heads present. No deformity. Feet: Right foot: Protective Sensation: 4 sites tested. 4 sites sensed. Skin integrity: No ulcer. Left foot: Protective Sensation: 4 sites tested. 4 sites sensed. Skin integrity: No ulcer. Skin: General: Skin is warm. Neurological: General: No focal deficit present. Mental Status: She is alert. Psychiatric: Mood and Affect: Mood normal. Laboratory and Additional Data Reviewed: Reviewed 03/21/21 : Laboratory, Medications and Transcriptions Spent 30 minutes reviewing chart, performance of history physical going over each of individual medical problems. documented in this [id number] History of Present illness Narrative* Enrico Slaughter, [facility], [place] - 02/06/2021 10:00 AM EDT ENT New Patient Visit Patient Name: Leslie Carcamo MR #: [id number] : 1950 Physicians: Kelby Hamilton MD (Family); Kelby Hamilton* (Referring) Chief Complaint/Reason for Visit: tinnitus History of Present Illness: Leslie Carcamo is a 70 y.o. y/o female presenting from PCP with c/o tinnitus She is a new patient who presents with concerns for tinnitus that has been ongoing for the last 5 months that started around time of husbands passing. Tinnitus is constant in duration, but reportedlyworse at night and is able to be ignored during the day when busy. There is no associated hearing loss with tinnitus.Patient denies ear pain/pressure/drainage, mastoid reactivity, headache, dizziness, syncope, fever, or other constitutional symptoms. Reports not recent change in medications, illness, injury, noise exposure or other contributing factors.. Denies family history of hearing loss, ototoxic medications, recurrent otitis, tympanostomy tubes, head/ear injury or surgery. 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 Patient does have known DM and is currently taking ASA & was previously on lasix daily. Reports having hearing tested 1 month ago at outside facility and reports normal hearing. History: Past Medical History: Diagnosis Date Diabetes mellitus (HCC) Diabetes mellitus, type 2 (HCC) Fibroid Glaucoma Gout History of echocardiogram History of stress test 2016 screening and patient reports was normal Hyperlipidemia Hypertension Renal mass, right 02/06/2018 Past Surgical History: Procedure Laterality Date CARDIAC CATHETERIZATION fatty tumor removed fibroid removed uterine HERNIA REPAIR HYSTERECTOMY NEPHRECTOMY PARTIAL ROBOTIC XI STAGE 2 Right 03/26/2018 Procedure: RIGHT ROBOTIC ASSISTED LAPAROSCOPIC PARTIAL NEPHRECTOMY LEVEL 2; Surgeon: Nasim Gaspar MD; Location: [facility] Main OR; Service: Urology Family History Problem Relation Age of Onset Hypertension Mother Cancer Brother Hypertension Brother Cancer Daughter Stroke Son Hypertension Sister No Known Problems Father Surgical complications Neg Hx Anesthesia problems Neg Hx Heart disease Neg Hx Clotting disorder Neg Hx Deep vein thrombosis Neg Hx Pulmonary embolism Neg Hx Social History Socioeconomic History Marital status: Spouse name: Not on file Number of children: Not on file Years of education: Not on file Highest education level: Not on file Occupational History Not on file Tobacco Use Smoking status: Never Smoker Smokeless tobacco: Never Used Vaping Use Vaping Use: Never used Substance and Sexual Activity Alcohol use: Yes Comment: socially Drug use: No Sexual activity: Yes Other Topics Concern Not on file Social History Narrative Not on file Social Determinants of Health Financial Resource Strain: Difficulty of Paying Living Expenses: Not on file Food Insecurity: Worried About Running Out of Food in the Last Year: Not on file Ran Out of Food in the Last Year: Not on file Transportation Needs: Lack of Transportation (Medical): Not on file Lack of Transportation (Non-Medical): Not on file Physical Activity: Days of Exercise per Week: Not on file Minutes of Exercise per Session: Not on file Stress: Feeling of Stress : Not on file Social Connections: Frequency of Communication with Friends and Family: Not on file Frequency of Social Gatherings with Friends and Family: Not on file Attends Church Services: Not on file Active Member of Clubs or Organizations: Not on file Attends Club or Organization Meetings: Not on file Marital Status: Not on file Housing Stability: Unable to Pay for Housing in the Last Year: Not on file Number of Places Lived in the Last Year: Not on file Unstable Housing in the Last Year: Not on file Allergy Information: I have reviewed the patient's allergies. No Known Allergies Home Medications: Current Outpatient Medications Medication Sig Dispense Refill amLODIPine-benazepril (LOTREL) 10-40 mg per capsule TAKE 1 CAPSULE BY MOUTH EVERY DAY 90 capsule 3 aspirin 81 mg chewable tablet Chew and Swallow 81 mg daily . atorvastatin (LIPITOR) 40 MG tablet Take 1 (one) tablet (40 mg total) by mouth every morning Reasons: high cholesterol. 90 tablet 1 blood pressure monitor Kit 1 kit by Miscellaneous route 2 (two) times a day . 1 each 0 blood-glucose meter kit Patient tests bid . 1 each 0 calcium-vitamin D 500 mg(1,250mg) -200 unit per tablet TAKE 1 (ONE) TABLET BY MOUTH 2 (TWO) TIMES ADAY WITH MEALS . 60 tablet 11 carvediloL (COREG) 25 MG tablet TAKE 1 TABLET BY MOUTH TWICE A DAY 180 tablet 1 ferrous gluconate (FERGON) 324 MG tablet Take 1 tablet by mouth daily . FreeStyle Lite Strips strips TEST 3 TIMES DAILY DIRECTED 200 each 2 furosemide (LASIX) 40 MG tablet Take 2 (two) tablets (80 mg total) by mouth daily . 60 tablet 11 hydrALAZINE (APRESOLINE) 25 MG tablet Take 1 (one) tablet (25 mg total) by mouth 3 (three) times a day . 270 tablet 3 insulin degludec (Tresiba FlexTouch U-200) 200 unit/mL (3 mL) InPn Inject 10 (ten) Units under the skin nightly . 9 Syringe 11 multivitamin (multivitamin) per tablet Take 1 tablet by mouth every morning. No current facility-administered medications for this visit. ROS: Review of Systems Constitutional: Negative for activity change, appetite change, fatigue and fever. HENT: Positive for tinnitus. Negative for congestion, ear discharge, ear pain, hearing loss, nosebleeds, postnasal drip, rhinorrhea, sinus pressure, sinus pain, sneezing, sore throat, trouble swallowing and voice change. Eyes: Positive for visual disturbance. Negative for pain, discharge, redness and itching. Respiratory: Negative for apnea, cough, choking, chest tightness, shortness of breath and wheezing. Cardiovascular: Negative for chest pain and palpitations. Gastrointestinal: Negative for nausea and vomiting. Endocrine: DM Musculoskeletal: Positive for arthralgias and myalgias. Negative for back pain, gait problem, neck pain and neck stiffness. Skin: Negative for color change, pallor, rash and wound. Allergic/Immunologic: Negative for environmental allergies and immunocompromised state. Neurological: Negative for dizziness, syncope, facial asymmetry, weakness, light-headedness, numbness and headaches. Hematological: Negative for adenopathy. Psychiatric/Behavioral: Negative for confusion. The patient is not nervous/anxious. Physical Examination: Vital Signs: There were no vitals taken for this visit. Physical Exam Vitals reviewed. Constitutional: General: She is not in acute distress. Appearance: She is well-developed. She is not ill-appearing or diaphoretic. HENT: Head: Normocephalic and atraumatic. No abrasion, contusion or laceration. Jaw: No tenderness, swelling or pain on movement. Right Ear: Tympanic membrane, ear canal and external ear normal. No decreased hearing noted. No drainage, swelling or tenderness. No middle ear effusion. No foreign body. No mastoid tenderness. Tympanic membrane is not scarred, perforated, retracted or bulging. Left Ear: Tympanic membrane, ear canal and external ear normal. No decreased hearing noted. No drainage, swelling or tenderness. No middle ear effusion. No foreign body. No mastoid tenderness. Tympanic membrane is not scarred, perforated, retracted or bulging. Nose: Nose normal. No nasal deformity, mucosal edema or rhinorrhea. Right Sinus: No maxillary sinus tenderness or frontal sinus tenderness. Left Sinus: No maxillary sinus tenderness or frontal sinus tenderness. Mouth/Throat: Lips: [place]. No lesions. Mouth: Mucous membranes are moist. No lacerations or oral lesions. Dentition: Normal dentition. No dental caries or dental abscesses. Tongue: No lesions. Pharynx: Uvula midline. No oropharyngeal exudate, posterior oropharyngeal erythema or uvula swelling. Eyes: General: No scleral icterus. Right eye: No discharge. Left eye: No discharge. Conjunctiva/sclera: Conjunctivae normal. Neck: Trachea: Phonation normal. Pulmonary: Effort: Pulmonary effort is normal. No respiratory distress. Musculoskeletal: General: Normal range of motion. Cervical back: Full passive range of motion without pain, normal range of motion and neck supple. No rigidity. Normal range of motion. Lymphadenopathy: Head: Right side of head: No submental, submandibular, tonsillar, preauricular or posterior auricular adenopathy. Left side of head: No submental, submandibular, tonsillar, preauricular or posterior auricular adenopathy. Cervical: No cervical adenopathy. Skin: General: Skin is warm and dry. Coloration: Skin is not pale. Findings: No erythema or rash. Neurological: Mental Status: She is alert and oriented to person, place, and time. Psychiatric: Attention and Perception: Attention normal. Mood and Affect: Mood normal. Mood is not anxious. Affect is not blunt. Speech: Speech normal. Behavior: Behavior normal. Thought Content: Thought content normal. Cognition and Memory: Cognition normal. Judgment: Judgment normal. Procedure Bilateral micro-otoscopy was used to rule out any abnormal middle ear translucent pathology. I do not appreciate any abnormal middle ear translucent pathology to either side. Bilateral tympanic membranes are intact without any perforations. There is good movement with auto insufflation. There is good light reflex to both sides. Assessment and Plan: Leslie Carcamo is a 70 y.o. y/o female presenting with tinnitus Patient reports 5 months history of bilateral tinnitus that is worse at night when quiet. Reports tinnitus started around time of husbands passing and has been consistent since that time. She is alsotaking ASA daily which may be contributing. Patient educated on tinnitus, provided handout and discussed not cure for tinnitus. Discussed lipo flavanoid OTC herbal supplement which may tried if she chooses. Counseled on distraction techniques and encouraged to contact office with any changes in herhearing or other concerns. Patient verbalized understanding and is in agreement with plans of care.No additional questions or concerns voiced today. Follow-up as needed with any changes or new concerns. Diagnoses and all orders for this visit: Tinnitus of both ears - Ambulatory referral to ENT Enrico Slaughter CNP 02/06/21 documented in this [id number] Miscellaneous Notes* Telephone Encounter - Anne Marie Banuelos CNP - 12/23/2020 11:46 AM EDT Prescription approved. Sent to pharmacy on file. Pharmacy to notify patient when refill is available. documented in this [id number] Miscellaneous Notes* Assessment & Plan Note - Kelby Hamilton MD - 12/13/2020 8:25 PM EDT Associated Problem(s): Essential hypertension Patient's blood pressure is not under control discussed in detail about importance of blood pressure control. Added hydralazine patient will continue to monitor blood pressure. Target blood pressure discussed. documented in this [id number] Miscellaneous Notes* Assessment & Plan Note - Kelby Hamilton MD - 12/13/2020 8:25 PM EDT Associated Problem(s): Essential hypertension Patient's blood pressure is not under control discussed in detail about importance of blood pressure control. Added hydralazine patient will continue to monitor blood pressure. Target blood pressure discussed. documented in this [id number] History of Present illness Narrative* Kelby Hamilton MD - 12/13/2020 8:21 PM EDT Images from the original note were not included. Office Progress Notes Patient Name: Leslie Carcamo Date : 12/13/2020 MR #: [id number] : 1950 Summary and Plan Problem List Items Addressed This Visit Endocrine Type 2 diabetes 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, with long-term current use of insulin(HCC) Relevant Medications blood-glucose meter kit bumetanide (BUMEX) 2 MG tablet Cardiovascular and Mediastinum Essential hypertension - Primary Patient's blood pressure is not under control discussed in detail about importance of blood pressure control. Added hydralazine patient will continue to monitor blood pressure. Target blood pressure discussed. Relevant Medications hydrALAZINE (APRESOLINE) 25 MG tablet blood pressure monitor Kit bumetanide (BUMEX) 2 MG tablet Other Mixed hyperlipidemia Other Visit Diagnoses Edema of both lower extremities Relevant Medications bumetanide (BUMEX) 2 MG tablet HPI Patient is 70-year-old female with history of multiple medical problems seen for follow-up. Patient's blood pressure is not under control. On last visit patient was switched to Lasix in view of chronic kidney disease for. Her renal functions is stable however patient says Lasix is making her legs swell. I did have a detailed conversation about leg swelling which could be multifactorial chronic kidney disease itself fluid overload, and or side effect of amlodipine could be causing her leg swelling. However as timing of starting Lasix and leg swelling coincides will try to discontinue Lasix try Bumex instead patient is agreeable. Patient's diabetes is fairly under control last hemoglobin A1c 7.8 g% patient is being followed up by endocrinology. Renal functions are stable. Patient denies any chest pain shortness of breath. Review of Systems : Review of Systems Constitutional: Negative for activity change, appetite change, chills, diaphoresis, fatigue, fever and unexpected weight change. HENT: Negative for congestion. Eyes: Negative for visual disturbance. Respiratory: Negative for apnea, cough, choking, chest tightness, shortness of breath, wheezing andstridor. Cardiovascular: Positive for leg swelling. Negative for chest pain and palpitations. Gastrointestinal: Negative for abdominal pain, constipation, diarrhea and nausea. Genitourinary: Negative for difficulty urinating. Musculoskeletal: Negative for arthralgias. Skin: Negative for rash. Neurological: Negative for weakness. Psychiatric/Behavioral: The patient is not nervous/anxious. Past Medical, Surgical, Family, and Social History: Past Medical History: Diagnosis Date Diabetes mellitus (HCC) Diabetes mellitus, type 2 (HCC) Fibroid Glaucoma Gout History of echocardiogram History of stress test 2016 screening and patient reports was normal Hyperlipidemia Hypertension Renal mass, right 02/06/2018 Past Surgical History: Procedure Laterality Date CARDIAC CATHETERIZATION fatty tumor removed fibroid removed uterine HERNIA REPAIR HYSTERECTOMY NEPHRECTOMY PARTIAL ROBOTIC XI STAGE 2 Right 03/26/2018 Procedure: RIGHT ROBOTIC ASSISTED LAPAROSCOPIC PARTIAL NEPHRECTOMY LEVEL 2; Surgeon: Nasim Gaspar MD; Location: [facility] Main OR; Service: Urology Family History Problem Relation Age of Onset Hypertension Mother Cancer Brother Hypertension Brother Cancer Daughter Stroke Son Hypertension Sister No Known Problems Father Surgical complications Neg Hx Anesthesia problems Neg Hx Heart disease Neg Hx Clotting disorder Neg Hx Deep vein thrombosis Neg Hx Pulmonary embolism Neg Hx Social History Socioeconomic History Marital status: Spouse name: Not on file Number of children: Not on file Years of education: Not on file Highest education level: Not on file Occupational History Not on file Tobacco Use Smoking status: Never Smoker Smokeless tobacco: Never Used Vaping Use Vaping Use: Never used Substance and Sexual Activity Alcohol use: Yes Comment: socially Drug use: No Sexual activity: Yes Other Topics Concern Not on file Social History Narrative Not on file Social Determinants of Health Financial Resource Strain: Difficulty of Paying Living Expenses: Food Insecurity: Worried About Running Out of Food in the Last Year: Ran Out of Food in the Last Year: Transportation Needs: Lack of Transportation (Medical): Lack of Transportation (Non-Medical): Physical Activity: Days of Exercise per Week: Minutes of Exercise per Session: Stress: Feeling of Stress : Social Connections: Frequency of Communication with Friends and Family: Frequency of Social Gatherings with Friends and Family: Attends Church Services: Active Member of Clubs or Organizations: Attends Club or Organization Meetings: Marital Status: Allergies and Medications: I have reviewed the patient's allergies. Patient has no known allergies. Medications: Patient's Medications New Prescriptions BLOOD PRESSURE MONITOR KIT 1 kit by Miscellaneous route 2 (two) times a day . BLOOD-GLUCOSE METER KIT Use as instructed . BUMETANIDE (BUMEX) 2 MG TABLET Take 1 (one) tablet (2 mg total) by mouth daily . HYDRALAZINE (APRESOLINE) 25 MG TABLET Take 1 (one) tablet (25 mg total) by mouth 3 (three) times a day . Previous Medications AMLODIPINE-BENAZEPRIL (LOTREL) 10-40 MG PER CAPSULE Take 1 (one) capsule by mouth daily . ASPIRIN 81 MG CHEWABLE TABLET Chew and Swallow 81 mg daily . ATORVASTATIN (LIPITOR) 40 MG TABLET Take 1 (one) tablet (40 mg total) by mouth every morning Reasons: high cholesterol. CALCIUM-VITAMIN D (OS-SHAYY +D) 500 MG(1,250MG) -200 UNIT PER TABLET Take 1 (one) tablet by mouth 2 (two) times a day with meals . CARVEDILOL (COREG) 25 MG TABLET TAKE 1 TABLET BY MOUTH TWICE A DAY FERROUS GLUCONATE (FERGON) 324 MG TABLET Take 1 tablet by mouth daily . FREESTYLE LITE STRIPS STRIPS TEST 3 TIMES DAILY DIRECTED INSULIN DEGLUDEC (TRESIBA FLEXTOUCH U-200) 200 UNIT/ML (3 ML) INPN Inject 10 (ten) Units under the skin nightly . MULTIVITAMIN (MULTIVITAMIN) PER TABLET Take 1 tablet by mouth every morning. Modified Medications No medications on file Discontinued Medications FUROSEMIDE (LASIX) 40 MG TABLET Take 1 (one) tablet (40 mg total) by mouth daily . LIDOCAINE (LIDODERM) 5 % PATCH Place 1 (one) patch on the skin daily Remove & Discard patch within 12 hours or as directed by . OARRS/NARxCHECK Report Received and Assessed: No data found Date controlled substance agreement signed: No data found Date of last drug screen: No data found Functional Assessment: No data found Physical Exam: Vital Signs: BP (!) 171/82 (BP Location: Left arm, Patient Position: Sitting, BP Cuff Size: Adult) Pulse (!) 53 Temp 98.7 F (37.1 C) (Temporal) Ht 5' 6 Wt 88.2 kg (194 lb 6.4 oz) SpO2 97% BMI 31.38 kg/m Physical Exam Vitals reviewed. Constitutional: Appearance: Normal appearance. She is normal weight. HENT: Head: Normocephalic. Right Ear: External ear normal. Left Ear: External ear normal. Nose: Nose normal. Mouth/Throat: Mouth: Mucous membranes are moist. Pharynx: Oropharynx is clear. Eyes: Extraocular Movements: Extraocular movements intact. Conjunctiva/sclera: Conjunctivae normal. Pupils: Pupils are equal, round, and reactive to light. Cardiovascular: Rate and Rhythm: Normal rate. Pulses: Normal pulses. Heart sounds: Normal heart sounds. Comments: No calf tenderness noted Pulmonary: Effort: Pulmonary effort is normal. Breath sounds: Normal breath sounds. Abdominal: General: Bowel sounds are normal. Musculoskeletal: General: Normal range of motion. Cervical back: Neck supple. Right lower le+ Edema present. Left lower le+ Edema present. Skin: General: Skin is warm. Neurological: General: No focal deficit present. Mental Status: She is alert. Psychiatric: Mood and Affect: Mood normal. Laboratory and Additional Data Reviewed: Reviewed 12/13/20 : Laboratory, Cardiology, Medications and Transcriptions Spent 30 minutes reviewing chart, performance of history physical going over each of individual medical problems. documented in this [id number] History of Present illness Narrative* Kelby Hamilton MD - 12/13/2020 8:21 PM EDT Images from the original note were not included. Office Progress Notes Patient Name: Leslie Carcamo Date : 12/13/2020 MR #: [id number] : 1950 Summary and Plan Problem List Items Addressed This Visit Endocrine Type 2 diabetes 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, with long-term current use of insulin(HCC) Relevant Medications blood-glucose meter kit bumetanide (BUMEX) 2 MG tablet Cardiovascular and Mediastinum Essential hypertension - Primary Patient's blood pressure is not under control discussed in detail about importance of blood pressure control. Added hydralazine patient will continue to monitor blood pressure. Target blood pressure discussed. Relevant Medications hydrALAZINE (APRESOLINE) 25 MG tablet blood pressure monitor Kit bumetanide (BUMEX) 2 MG tablet Other Mixed hyperlipidemia Other Visit Diagnoses Edema of both lower extremities Relevant Medications bumetanide (BUMEX) 2 MG tablet HPI Patient is 70-year-old female with history of multiple medical problems seen for follow-up. Patient's blood pressure is not under control. On last visit patient was switched to Lasix in view of chronic kidney disease for. Her renal functions is stable however patient says Lasix is making her legs swell. I did have a detailed conversation about leg swelling which could be multifactorial chronic kidney disease itself fluid overload, and or side effect of amlodipine could be causing her leg swelling. However as timing of starting Lasix and leg swelling coincides will try to discontinue Lasix try Bumex instead patient is agreeable. Patient's diabetes is fairly under control last hemoglobin A1c 7.8 g% patient is being followed up by endocrinology. Renal functions are stable. Patient denies any chest pain shortness of breath. Review of Systems : Review of Systems Constitutional: Negative for activity change, appetite change, chills, diaphoresis, fatigue, fever and unexpected weight change. HENT: Negative for congestion. Eyes: Negative for visual disturbance. Respiratory: Negative for apnea, cough, choking, chest tightness, shortness of breath, wheezing andstridor. Cardiovascular: Positive for leg swelling. Negative for chest pain and palpitations. Gastrointestinal: Negative for abdominal pain, constipation, diarrhea and nausea. Genitourinary: Negative for difficulty urinating. Musculoskeletal: Negative for arthralgias. Skin: Negative for rash. Neurological: Negative for weakness. Psychiatric/Behavioral: The patient is not nervous/anxious. Past Medical, Surgical, Family, and Social History: Past Medical History: Diagnosis Date Diabetes mellitus (HCC) Diabetes mellitus, type 2 (HCC) Fibroid Glaucoma Gout History of echocardiogram History of stress test 2015 screening and patient reports was normal Hyperlipidemia Hypertension Renal mass, right 02/06/2018 Past Surgical History: Procedure Laterality Date CARDIAC CATHETERIZATION fatty tumor removed fibroid removed uterine HERNIA REPAIR HYSTERECTOMY NEPHRECTOMY PARTIAL ROBOTIC XI STAGE 2 Right 03/26/2018 Procedure: RIGHT ROBOTIC ASSISTED LAPAROSCOPIC PARTIAL NEPHRECTOMY LEVEL 2; Surgeon: Nasim Gaspar MD; Location: [facility] Main OR; Service: Urology Family History Problem Relation Age of Onset Hypertension Mother Cancer Brother Hypertension Brother Cancer Daughter Stroke Son Hypertension Sister No Known Problems Father Surgical complications Neg Hx Anesthesia problems Neg Hx Heart disease Neg Hx Clotting disorder Neg Hx Deep vein thrombosis Neg Hx Pulmonary embolism Neg Hx Social History Socioeconomic History Marital status: Spouse name: Not on file Number of children: Not on file Years of education: Not on file Highest education level: Not on file Occupational History Not on file Tobacco Use Smoking status: Never Smoker Smokeless tobacco: Never Used Vaping Use Vaping Use: Never used Substance and Sexual Activity Alcohol use: Yes Comment: socially Drug use: No Sexual activity: Yes Other Topics Concern Not on file Social History Narrative Not on file Social Determinants of Health Financial Resource Strain: Difficulty of Paying Living Expenses: Food Insecurity: Worried About Running Out of Food in the Last Year: Ran Out of Food in the Last Year: Transportation Needs: Lack of Transportation (Medical): Lack of Transportation (Non-Medical): Physical Activity: Days of Exercise per Week: Minutes of Exercise per Session: Stress: Feeling of Stress : Social Connections: Frequency of Communication with Friends and Family: Frequency of Social Gatherings with Friends and Family: Attends Church Services: Active Member of Clubs or Organizations: Attends Club or Organization Meetings: Marital Status: Allergies and Medications: I have reviewed the patient's allergies. Patient has no known allergies. Medications: Patient's Medications New Prescriptions BLOOD PRESSURE MONITOR KIT 1 kit by Miscellaneous route 2 (two) times a day . BLOOD-GLUCOSE METER KIT Use as instructed . BUMETANIDE (BUMEX) 2 MG TABLET Take 1 (one) tablet (2 mg total) by mouth daily . HYDRALAZINE (APRESOLINE) 25 MG TABLET Take 1 (one) tablet (25 mg total) by mouth 3 (three) times a day . Previous Medications AMLODIPINE-BENAZEPRIL (LOTREL) 10-40 MG PER CAPSULE Take 1 (one) capsule by mouth daily . ASPIRIN 81 MG CHEWABLE TABLET Chew and Swallow 81 mg daily . ATORVASTATIN (LIPITOR) 40 MG TABLET Take 1 (one) tablet (40 mg total) by mouth every morning Reasons: high cholesterol. CALCIUM-VITAMIN D (OS-SHAYY +D) 500 MG(1,250MG) -200 UNIT PER TABLET Take 1 (one) tablet by mouth 2 (two) times a day with meals . CARVEDILOL (COREG) 25 MG TABLET TAKE 1 TABLET BY MOUTH TWICE A DAY FERROUS GLUCONATE (FERGON) 324 MG TABLET Take 1 tablet by mouth daily . FREESTYLE LITE STRIPS STRIPS TEST 3 TIMES DAILY DIRECTED INSULIN DEGLUDEC (TRESIBA FLEXTOUCH U-200) 200 UNIT/ML (3 ML) INPN Inject 10 (ten) Units under the skin nightly . MULTIVITAMIN (MULTIVITAMIN) PER TABLET Take 1 tablet by mouth every morning. Modified Medications No medications on file Discontinued Medications FUROSEMIDE (LASIX) 40 MG TABLET Take 1 (one) tablet (40 mg total) by mouth daily . LIDOCAINE (LIDODERM) 5 % PATCH Place 1 (one) patch on the skin daily Remove & Discard patch within 12 hours or as directed by . OARRS/NARxCHECK Report Received and Assessed: No data found Date controlled substance agreement signed: No data found Date of last drug screen: No data found Functional Assessment: No data found Physical Exam: Vital Signs: BP (!) 171/82 (BP Location: Left arm, Patient Position: Sitting, BP Cuff Size: Adult) Pulse (!) 53 Temp 98.7 F (37.1 C) (Temporal) Ht 5' 6 Wt 88.2 kg (194 lb 6.4 oz) SpO2 97% BMI 31.38 kg/m Physical Exam Vitals reviewed. Constitutional: Appearance: Normal appearance. She is normal weight. HENT: Head: Normocephalic. Right Ear: External ear normal. Left Ear: External ear normal. Nose: Nose normal. Mouth/Throat: Mouth: Mucous membranes are moist. Pharynx: Oropharynx is clear. Eyes: Extraocular Movements: Extraocular movements intact. Conjunctiva/sclera: Conjunctivae normal. Pupils: Pupils are equal, round, and reactive to light. Cardiovascular: Rate and Rhythm: Normal rate. Pulses: Normal pulses. Heart sounds: Normal heart sounds. Comments: No calf tenderness noted Pulmonary: Effort: Pulmonary effort is normal. Breath sounds: Normal breath sounds. Abdominal: General: Bowel sounds are normal. Musculoskeletal: General: Normal range of motion. Cervical back: Neck supple. Right lower le+ Edema present. Left lower le+ Edema present. Skin: General: Skin is warm. Neurological: General: No focal deficit present. Mental Status: She is alert. Psychiatric: Mood and Affect: Mood normal. Laboratory and Additional Data Reviewed: Reviewed 12/13/20 : Laboratory, Cardiology, Medications and Transcriptions Spent 30 minutes reviewing chart, performance of history physical going over each of individual medical problems. documented in this [id number] History of Present illness Narrative* Iris Galeana CNP - 12/12/2020 3:00 PM EDT History of Present Illness Diabetes Type 2 diabetes: This is a follow-up visit to the office. She was diagnosed with diabetes in 2011. Family history of diabetes includes her daughter. Previously on metformin but states discontinued due to CKD. Currently taking Trulicity 0.75 mg weekly and Tresiba 10-20 units daily. She has been holding Tresiba if blood sugar <150 mg/dL at bedtime, always basing Tresiba off bedtime sugars. Denies any hypoglycemic symptoms. She is able to verbalize appropriate treatment of hypoglycemia and also does have nasal glucagon available at home (previously prescribed to her ). She is up-to-date with ophthalmology as of December 2019. Does not see a valve pipe irrigator and denies any symptoms of peripheral neuropathy. She never did reschedule with childbirth educator. Recent A1c = 7.8%, up from 7.7%, up from 7.4%, down from 8.8%. In reviewing the EMR, in 2018 her A1c ranged from 10.5 11.5%, fructosamine = 300. She does have chronic anemia with H/H = 10.4/30 9. significantly reduced GFR = 18, urine albumin creatinine ratio previously elevated at 3099 mg/g. She does follow with nephrology in [place] and reports she had a recent follow-up with them. She was able to get prescription assistance for Trulicity. Tolerating well. She has been under significant amount of stress over the past 3 months with her 's declininghealth and recent passing. Hypertension: Blood pressure above target today. Follows closely with nephrology for blood pressurecontrol. She is on JAXON therapy. Hyperlipidemia: LDL = 109, triglyceride = 125. Currently on atorvastatin 40 mg daily. Review of Systems Pierre Pro sensor was removed from patients arm without difficulty. Sensor filament intact, without deformity. Skin intact without any compromise noted Nurse Note: Review of Systems Constitutional: Negative for fatigue and unexpected weight change. Eyes: Negative for visual disturbance. Respiratory: Negative for cough and shortness of breath. Cardiovascular: Negative for chest pain and leg swelling. Gastrointestinal: Negative for constipation, diarrhea, nausea and vomiting. Endocrine: Negative for polydipsia and polyuria. Skin: Negative for rash. Neurological: Negative for numbness. Psychiatric/Behavioral: Negative for sleep disturbance. Patient does not see childbirth educator Nursing Assessment: Physical Exam Vitals: Blood pressure 160/70, pulse 65, height 1.651 m (5' 5), weight 88.1 kg (194 lb 3.2 oz). Physical Exam Constitutional: Appearance: Normal appearance. HENT: Head: Normocephalic. Neck: Vascular: No carotid bruit. Cardiovascular: Rate and Rhythm: Normal rate and regular rhythm. Pulses: Normal pulses. Heart sounds: Normal heart sounds. Pulmonary: Effort: Pulmonary effort is normal. Breath sounds: Normal breath sounds. Musculoskeletal: Cervical back: Neck supple. Lymphadenopathy: Cervical: No cervical adenopathy. Skin: General: Skin is warm and dry. Neurological: General: No focal deficit present. Mental Status: She is alert and oriented to person, place, and time. Psychiatric: Mood and Affect: Mood normal. Behavior: Behavior normal. Thought Content: Thought content normal. Judgment: Judgment normal. Neurological Exam Mental Status Alert. Assessment and Plan Type 2 diabetes: A1c has elevated slightly though with her history of hypoglycemia A1c of 7 7.5% would be a realistic goal. We discussed in detail her CGM as well as her log book. Postprandial hyperglycemia seems to be most pronounced after high carb/carb only meals. We discussed mixed meals. Recomm ended meeting with childbirth educator though she declines at this time and wishes to make diet changes on her own. For now we will continue same medications, again cautioned on dosing Tresiba off bedtime blood sugars and recommended that she dose off of fasting blood sugars. Follow-up in 3 months with labs prior. Hypertension: Blood pressure above goal today. She has a visit with PCP tomorrow. Hyperlipidemia: Lipid panel stable. Continue atorvastatin. * Lulu Redd - 12/12/2020 3:00 PM EDT Nurse Note: Review of Systems Constitutional: Negative for fatigue and unexpected weight change. Eyes: Negative for visual disturbance. Respiratory: Negative for cough and shortness of breath. Cardiovascular: Negative for chest pain and leg swelling. Gastrointestinal: Negative for constipation, diarrhea, nausea and vomiting. Endocrine: Negative for polydipsia and polyuria. Skin: Negative for rash. Neurological: Negative for numbness. Psychiatric/Behavioral: Negative for sleep disturbance. Patient does not see childbirth educator Nursing Assessment: Physical Exam * Lulu Redd - 12/12/2020 3:00 PM EDT Pierre Pro sensor was removed from patients arm without difficulty. Sensor filament intact, without deformity. Skin intact without any compromise noted documented in this [facility]08-02-2021 Procedure note* Iris Galeana CNP - 12/12/2020 3:00 PM EDT Associated Order(s): CT CONTINUOUS GLUCOSE MONITORING ANALYSIS I&R CGM data reviewed with patient. CGM data shows time in target range 72%, high 23%, very high 2%, low 2%, very low 1%. CGM data try and show postprandial hyperglycemia, most pronounced with high carb/carbon only meals. Seems to be to lesser degree with lower carb meals. We did review this in detail today. One episode of overnight hypoglycemia though bigger stick reading was 85 mg/dL upon wakening were CGM showed hypoglycemia. This was not reproduced. documented in this [facility]07-19-2021 History of Present illness Narrative* Lulu Redd - 11/28/2020 11:00 AM EDT Pierre placed on patient's upper (/Left) arm without difficulty. FAQ Sheet reviewed and given to patient. Patient instructed on the care and risks of the sensor. Blood glucose log reviewed and given to patient. Patient instructed to continue to check blood sugar as directed. Patient voiced understanding and will call the clinic with any questions or concerns. Lot #[id number] Serial #[id number] Expiration date:04/11/2021 [facility] Miscellaneous Notes* Telephone Encounter - Anne Marie Banuelos CNP - 10/07/2020 11:41 AM EDT Prescription approved. Sent to pharmacy on file. Pharmacy to notify patient when refill is available. documented in this [id number] Miscellaneous Notes* Telephone Encounter - Anne Marie Banuelos CNP - 09/05/2020 12:34 PM EDT Prescription approved. Sent to pharmacy on file. Pharmacy to notify patient when refill is available. 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 06/08/2014 02/22/2016 documented as of this encounter (statuses as of 05/04/2022) [facility] Diagnosis Essential hypertension Unspecified essential hypertension [facility] Diagnosis Renal cell carcinoma, unspecified laterality (HCC) [facility]* Diagnosis Type 2 diabetes mellitus without complication, with long-term current use of insulin (HCC) [facility]* Diagnosis Type 2 diabetes 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, with long-term current use of insulin- Primary [facility] Diagnosis Essential hypertension- Primary Unspecified essential hypertension Type 2 diabetes 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, with long-term current use of insulin (HCC) Mixed hyperlipidemia Edema of both lower extremities [facility] Diagnosis Essential hypertension Unspecified essential hypertension [facility]* Diagnosis Edema of both lower extremities [facility]* Diagnosis Essential hypertension Unspecified essential hypertension Edema of both lower extremities [facility] Diagnosis Essential hypertension- Primary Unspecified essential hypertension Type 2 diabetes 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, with long-term current use of insulin (HCC) Mixed hyperlipidemia Edema of both lower extremities [facility]* Diagnosis Tinnitus of both ears- Primary Unspecified tinnitus [facility]* Diagnosis Edema of both lower extremities [facility]* Diagnosis Acute gout due to renal impairment involving multiple sites- Primary Edema of both lower extremities Type 2 diabetes 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, with long-term current use of insulin (HCC) Essential hypertension Unspecified essential hypertension Class 1 obesity due to excess calories with serious comorbidity and body mass index (BMI) of 30.0 to 30.9 in adult documented [facility]* Diagnosis Stage 4 chronic kidney disease (HCC)- Primary Chronic gout of foot, unspecified cause, 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, with long-term current use of insulin (HCC) [facility] Essential hypertension Unspecified essential hypertension [facility] Diagnosis Essential hypertension- Primary Unspecified essential hypertension Stage 4 chronic kidney disease (HCC) [facility] Diagnosis Type 2 diabetes 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, with long-term current use of insulin- Primary [facility]* Diagnosis Type 2 diabetes 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, with long-term current use of insulin- Primary Mixed hyperlipidemia Vitamin D deficiency Unspecified vitamin D deficiency [facility]* Diagnosis Other iron deficiency anemia- Primary Stage 4 chronic kidney disease (HCC) Renal cell carcinoma of right kidney (HCC) Anemia due to stage 4 chronic kidney disease (HCC) [facility] Diagnosis Type 2 diabetes 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, with long-term current use of insulin- Primary Essential hypertension Unspecified essential hypertension Mixed hyperlipidemia documented in this encounter [facility] note* Diagnosis Type 2 diabetes mellitus without complication, with long-term current use of insulin (HCC) [facility] Diagnosis Other iron deficiency anemia- Primary Stage 4 chronic kidney disease (HCC) Anemia due to stage 4 chronic kidney disease (HCC) [facility] Diagnosis Stage 4 chronic kidney disease (HCC)- Primary Anemia due to stage 4 chronic kidney disease (HCC) [facility] Diagnosis Other iron deficiency anemia- Primary Occult blood positive stool Nonspecific abnormal finding in stool contents [facility] Diagnosis Stage 4 chronic kidney disease (HCC)- Primary Anemia due to stage 4 chronic kidney disease (HCC) [facility] Diagnosis Essential hypertension Unspecified essential hypertension [facility] Diagnosis Other iron deficiency anemia Occult blood positive stool Nonspecific abnormal finding in stool contents Guaiac positive stools Nonspecific abnormal finding in stool contents Anemia Unspecified anemia Iron deficiency anemia, unspecified iron deficiency anemia type Guaiac positive stools Nonspecific abnormal finding in stool contents [facility] Diagnosis Guaiac positive stools Nonspecific abnormal finding in stool contents Anemia Unspecified anemia Stage 4 chronic kidney disease (HCC) Anemia due to stage 4 chronic kidney disease (HCC) Iron deficiency anemia, unspecified iron deficiency anemia type Guaiac positive stools Nonspecific abnormal finding in stool contents [facility] Diagnosis Guaiac positive stools Nonspecific abnormal finding in stool contents Anemia Unspecified anemia Renal cell carcinoma of right kidney (HCC)- Primary Guaiac positive stools Nonspecific abnormal finding in stool contents Anemia due to stage 5 chronic kidney disease, not on chronic dialysis (HCC) Iron deficiency anemia, unspecified iron deficiency anemia type Guaiac positive stools Nonspecific abnormal finding in stool contents [facility]* Diagnosis Type 2 diabetes 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, with long-term current use of insulin (HCC)- Primary Essential hypertension Unspecified essential hypertension Chronic gout of foot, unspecified cause, unspecified laterality Mixed hyperlipidemia [facility]* Diagnosis Gastritis due to Helicobacter species- Primary Adenomatous polyp of transverse colon Diverticulosis large intestine w/o perforation or abscess w/bleeding Iron deficiency anemia, unspecified iron deficiency anemia type [facility]* Diagnosis Type 2 diabetes mellitus without retinopathy (HCC) [facility]* Diagnosis Chest pain, unspecified type- Primary Renal cell carcinoma of right kidney (HCC) [facility]* Diagnosis Chronic gout of foot, unspecified cause, unspecified laterality- Primary Pain of left upper extremity [facility]* Diagnosis Stage 4 chronic kidney disease (HCC) End stage renal disease (HCC)- Primary End stage renal disease [facility]* Diagnosis End stage renal disease (HCC)- Primary End stage renal disease End stage renal disease (HCC)- Primary End stage renal disease [facility]* Diagnosis Type 2 diabetes 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, with long-term current use of insulin- Primary [facility] Diagnosis Pre-transplant evaluation for kidney transplant- Primary Abnormal levels of other serum enzymes Encounter for screening for other viral diseases End stage renal disease End stage renal disease Abnormal finding of blood chemistry, unspecified Encounter for therapeutic drug level monitoring Encounter for therapeutic drug monitoring [facility] Diagnosis ESRD (end stage renal disease) (HCC)- Primary End stage renal disease [facility]* Diagnosis ESRD (end stage renal disease) (HCC)- Primary End stage renal disease End stage renal disease (HCC)- Primary End stage renal disease [facility] Diagnosis End stage renal disease (HCC)- Primary End stage renal disease ESRD (end stage renal disease) (HCC) End stage renal disease End stage renal disease (HCC) End stage renal disease Essential hypertension Unspecified essential hypertension Type 2 diabetes 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, with long-term current use of insulin (HCC) Anemia due to stage 5 chronic kidney disease (HCC) Mixed hyperlipidemia Preop examination Unspecified pre-operative examination ESRD (end stage renal disease) (HCC) End stage renal disease [facility] Diagnosis ESRD (end stage renal disease) (HCC)- Primary End stage renal disease ESRD (end stage renal disease) (HCC) End stage renal disease [facility] Diagnosis ESRD (end stage renal disease) (HCC)- Primary End stage renal disease End stage renal disease (HCC)- Primary End stage renal disease ESRD (end stage renal disease) (HCC) End stage renal disease [facility] Diagnosis Essential hypertension Unspecified essential hypertension End stage renal disease (HCC)- Primary End stage renal disease ESRD (end stage renal disease) (HCC) End stage renal disease [facility] Diagnosis End stage renal disease (HCC)- Primary End stage renal disease Pain of left upper extremity- Primary Arm mass, left ESRD (end stage renal disease) (HCC) End stage renal disease [facility] Diagnosis ESRD (end stage renal disease) (HCC)- Primary End stage renal disease [facility] Diagnosis Type 2 diabetes mellitus with chronic kidney disease on chronic dialysis, with long-term current use of insulin- Primary Vitamin D deficiency Unspecified vitamin D deficiency Essential hypertension Unspecified essential hypertension [facility] [facility] Diagnosis ESRD (end stage renal disease) (HCC)- Primary [facility] (end stage renal disease) (HCC)- Primary End stage renal disease [facility] Diagnosis End stage renal disease (HCC)- Primary End stage renal disease [facility] Diagnosis ESRD (end stage renal disease) (HCC)- Primary End stage renal disease Complication of arteriovenous dialysis fistula, initial encounter Arteriovenous fistula stenosis, initial encounter ([facility]) [facility] Diagnosis Essential hypertension- Primary Unspecified essential hypertension Secondary hyperparathyroidism of renal origin (HCC) Secondary hyperparathyroidism (of renal origin) Anemia due to stage 5 chronic kidney disease ([facility]) Type 2 diabetes 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, with long-term current use of insulin ([facility]) Heart failure with preserved ejection fraction, unspecified HF chronicity ([facility]) Pain of left upper extremity Numbness and tingling in left hand Disturbance of skin sensation [facility] Diagnosis S/P arteriovenous (AV) fistula creation End stage renal disease (HCC) End stage renal disease Essential hypertension Unspecified essential hypertension Type 2 diabetes 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, with long-term current use of insulin ([facility]) [facility] Diagnosis ESRD (end stage renal disease) (HCC)- Primary End stage renal disease [facility] Diagnosis S/P arteriovenous (AV) fistula creation- Primary Numbness and tingling in left hand Disturbance of skin sensation Numbness and tingling in right hand Disturbance of skin sensation [facility] Diagnosis ESRD (end stage renal disease) (HCC)- Primary End stage renal disease [facility] Diagnosis S/P arteriovenous (AV) fistula creation Numbness and tingling in left hand Disturbance of skin sensation [facility] Diagnosis Numbness and tingling in left hand- Primary Disturbance of skin sensation [facility] Diagnosis Numbness and tingling in left hand- Primary Disturbance of skin sensation [facility] Diagnosis Numbness and tingling in left hand [R20.0, R20.2 (ICD-10-CM)]- Primary Disturbance of skin sensation [facility] Diagnosis Numbness and tingling in left hand- Primary Disturbance of skin sensation [facility] Diagnosis Numbness and tingling in left hand [R20.0, R20.2 (ICD-10-CM)]- Primary Disturbance of skin sensation documented in this encounter [facility] note* Diagnosis Numbness and tingling in left hand- Primary Disturbance of skin sensation [facility]* Diagnosis Breast cancer screening by mammogram documented in this encounter [facility] note* Diagnosis Numbness and tingling in left hand- Primary Disturbance of skin sensation documented in this encounter [facility] note* Diagnosis Numbness and tingling in left hand- Primary Disturbance of skin sensation documented in this encounter [facility] note* Diagnosis Numbness and tingling in left hand- Primary Disturbance of skin sensation documented in this encounter [facility] note* Diagnosis Numbness and tingling in left hand [R20.0, R20.2]- Primary Disturbance of skin sensation documented in this encounter [facility] note* Diagnosis Onset Date Resolution Status Problem with dialysis access acute Steal syndrome dialysis vascular access acute [facility] Work Phone: Evaluation note* Diagnosis Annual physical exam- Primary Routine general medical examination at a health care facility At low risk for fall documented in this encounter [facility] note* Diagnosis Onset Date Resolution Status Problem with dialysis access acute 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 [facility] Work Phone: Evaluation note* Diagnosis Onset Date Resolution Status Steal syndrome dialysis vascular access chronic [facility] Work Phone: Evaluation note* Diagnosis Onset Date Resolution Status 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 [facility] Work Phone: Evaluation note* Diagnosis Hematoma- Primary Contusion of unspecified site documented in this encounter [facility] note* Diagnosis Mixed hyperlipidemia documented [facility] this encounter [facility]* Diagnosis Type 2 diabetes mellitus with chronic kidney disease on chronic dialysis, with long-term current use of insulin- Primary documented in this encounter [facility] note* Diagnosis Type 2 diabetes 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, with long-term current use of insulin (HCC)- Primary Anemia due to stage 5 chronic kidney disease (HCC) End stage renal disease (HCC) End stage renal disease Chronic heart failure with preserved ejection fraction (HCC) Secondary hyperparathyroidism of renal origin (HCC) Secondary hyperparathyroidism (of renal origin) Arteriovenous fistula, acquired (HCC) Arteriovenous fistula, acquired Abdominal pain, unspecified abdominal location documented in this encounter [facility] note* Diagnosis Acute gout of lright knee, unspecified cause- Primary [facility]* Diagnosis Acute pain of right knee- Primary documented in this encounter [facility] note* Diagnosis Arthritis of right knee- Primary Acute pain of right knee Chondromalacia of right patella documented in this encounter [facility] note* Diagnosis Medicare annual wellness visit, subsequent- Primary Acute pain of right knee At low risk for fall Type 2 diabetes 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, with long-term current use of insulin (HCC) Mixed hyperlipidemia Essential hypertension Unspecified essential hypertension Thyroid nodule Nontoxic uninodular goiter documented [facility] this [facility]* Diagnosis Medicare annual wellness visit, subsequent- Primary Acute pain of right knee At low risk for fall Type 2 diabetes 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, with long-term current use of insulin (HCC) Mixed hyperlipidemia Essential hypertension Unspecified essential hypertension Thyroid nodule Nontoxic uninodular goiter Thyroid nodule Nontoxic uninodular goiter documented in this encounter [facility] note* Diagnosis Pre-transplant evaluation for ESRD (end stage renal disease)- Primary Other specified pre-operative examination [facility] Diagnosis OPENED IN ERROR- Primary To allow closing an encounter opened in error (used in [employer]) documented in this encounter [facility] note* Diagnosis Chronic renal failure, unspecified CKD stage- Primary documented in this encounter [facility] note* Diagnosis Pre-transplant evaluation for kidney transplant- Primary Other specified pre-operative examination documented in this encounter [facility] note* Diagnosis H/O partial nephrectomy- Primary Renal mass Unspecified disorder of kidney and ureter Essential hypertension- Primary Unspecified essential hypertension Type 2 diabetes 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, with long-term current use of insulin (HCC) Mixed hyperlipidemia Edema of both lower extremities Stage 4 chronic kidney disease (HCC)- Primary Chronic gout of foot, unspecified cause, 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, with long-term current use of insulin ([facility]) Essential hypertension- Primary Unspecified essential hypertension Stage 4 chronic kidney disease (HCC) Type 2 diabetes 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, with long-term current use of insulin (HCC)- Primary Essential hypertension Unspecified essential hypertension Chronic gout of foot, unspecified cause, unspecified laterality Mixed hyperlipidemia Chest pain, unspecified type- Primary Renal cell carcinoma of right kidney (HCC) Chronic gout of foot, unspecified cause, unspecified laterality- Primary Pain of left upper extremity Stage 4 chronic kidney disease (HCC) End stage renal disease (HCC) End stage renal disease Preop examination Unspecified pre-operative examination Type 2 diabetes mellitus without retinopathy ([facility]) Essential hypertension Unspecified essential hypertension Anemia due to stage 5 chronic kidney disease, not on chronic dialysis ([facility]) Mixed hyperlipidemia Pain of left upper extremity- Primary Left arm swelling Secondary hyperparathyroidism of renal origin (HCC) Secondary hyperparathyroidism (of renal origin) Anemia due to stage 5 chronic kidney disease ([facility]) ESRD (end stage renal disease) ([facility]) End stage renal disease End stage renal disease ([facility]) End stage renal disease Essential hypertension Unspecified essential hypertension Type 2 diabetes 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, with long-term current use of insulin ([facility]) Anemia due to stage 5 chronic kidney disease ([facility]) Mixed hyperlipidemia Preop examination Unspecified pre-operative examination End stage renal disease ([facility])- Primary End stage renal disease S/P arteriovenous (AV) fistula creation End stage renal disease ([facility]) End stage renal disease Essential hypertension Unspecified essential hypertension Type 2 diabetes 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, with long-term current use of insulin ([facility]) Essential hypertension- Primary Unspecified essential hypertension Secondary hyperparathyroidism of renal origin (HCC) Secondary hyperparathyroidism (of renal origin) Anemia due to stage 5 chronic kidney disease (HCC) Type 2 diabetes 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, with long-term current use of insulin ([facility]) Heart failure with preserved ejection fraction, unspecified HF chronicity (HCC) Pain of left upper extremity Numbness and tingling in left hand Disturbance of skin sensation Type 2 diabetes 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, with long-term current use of insulin (HCC)- Primary Anemia due to stage 5 chronic kidney disease (HCC) End stage renal disease (HCC) End stage renal disease Chronic heart failure with preserved ejection fraction (HCC) Secondary hyperparathyroidism of renal origin (HCC) Secondary hyperparathyroidism (of renal origin) Arteriovenous fistula, acquired Abdominal pain, unspecified abdominal location Medicare annual wellness visit, subsequent- Primary Acute pain of right knee At low risk for fall Type 2 diabetes 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, with long-term current use of insulin (HCC) Mixed hyperlipidemia Essential hypertension Unspecified essential hypertension Thyroid nodule Nontoxic uninodular goiter Upper respiratory tract infection, unspecified type- Primary documented in this encounter [facility] note* Diagnosis Type 2 diabetes mellitus with chronic kidney disease on chronic dialysis, with long-term current use of insulin- Primary [facility]* Diagnosis Pre-transplant evaluation for kidney transplant- Primary Other specified pre-operative examination Preoperative examination Preoperative examination, unspecified documented in this encounter [facility] note* Diagnosis Pre-transplant evaluation for ESRD (end stage renal disease)- Primary Other specified pre-operative examination [facility]* Diagnosis Pre-transplant evaluation for kidney transplant- Primary Other specified pre-operative examination [facility]* Diagnosis Pre-transplant evaluation for kidney transplant- Primary Other specified pre-operative examination [facility]* Diagnosis Awaiting transplantation of kidney- Primary Type 2 diabetes mellitus without retinopathy (HCC) Type II or unspecified type diabetes mellitus without mention of complication, not stated as uncontrolled Dietary counseling and surveillance Dietary surveillance and counseling [facility]* Diagnosis Pre-transplant evaluation for kidney transplant- Primary Other specified pre-operative examination Stage 5 chronic kidney disease on chronic dialysis (HCC) Preoperative examination Preoperative examination, unspecified Screening for venereal disease Screening examination for venereal disease [facility]* Diagnosis Chronic renal failure, unspecified CKD stage [facility]* Diagnosis Pre-transplant evaluation for kidney transplant Other specified pre-operative examination Preoperative examination Preoperative examination, unspecified [facility]* Diagnosis ESRD on dialysis (HCC)- Primary End stage renal disease Hypertension, unspecified type Type 2 diabetes mellitus with diabetic nephropathy, unspecified whether assisted insulin use (HCC) History of renal cell cancer [facility]* Diagnosis H/O partial nephrectomy- Primary Renal mass Unspecified disorder of kidney and ureter Essential hypertension- Primary Unspecified essential hypertension Type 2 diabetes 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, with long-term current use of insulin ([facility]) Mixed hyperlipidemia Edema of both lower extremities Stage 4 chronic kidney disease (HCC)- Primary Chronic gout of foot, unspecified cause, 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, with long-term current use of insulin ([facility]) Essential hypertension- Primary Unspecified essential hypertension Stage 4 chronic kidney disease (HCC) Type 2 diabetes 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, with long-term current use of insulin (HCC)- Primary Essential hypertension Unspecified essential hypertension Chronic gout of foot, unspecified cause, unspecified laterality Mixed hyperlipidemia Chest pain, unspecified type- Primary Renal cell carcinoma of right kidney (HCC) Chronic gout of foot, unspecified cause, unspecified laterality- Primary Pain of left upper extremity Stage 4 chronic kidney disease ([facility]) End stage renal disease ([facility]) End stage renal disease Preop examination Unspecified pre-operative examination Type 2 diabetes mellitus without retinopathy ([facility]) Essential hypertension Unspecified essential hypertension Anemia due to stage 5 chronic kidney disease, not on chronic dialysis ([facility]) Mixed hyperlipidemia Pain of left upper extremity- Primary Left arm swelling Secondary hyperparathyroidism of renal origin ([facility]) Secondary hyperparathyroidism (of renal origin) Anemia due to stage 5 chronic kidney disease ([facility]) ESRD (end stage renal disease) ([facility]) End stage renal disease End stage renal disease ([facility]) End stage renal disease Essential hypertension Unspecified essential hypertension Type 2 diabetes 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, with long-term current use of insulin ([facility]) Anemia due to stage 5 chronic kidney disease ([facility]) Mixed hyperlipidemia Preop examination Unspecified pre-operative examination End stage renal disease ([facility])- Primary End stage renal disease S/P arteriovenous (AV) fistula creation End stage renal disease ([facility]) End stage renal disease Essential hypertension Unspecified essential hypertension Type 2 diabetes 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, with long-term current use of insulin ([facility]) Essential hypertension- Primary Unspecified essential hypertension Secondary hyperparathyroidism of renal origin (HCC) Secondary hyperparathyroidism (of renal origin) Anemia due to stage 5 chronic kidney disease ([facility]) Type 2 diabetes 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, with long-term current use of insulin ([facility]) Heart failure with preserved ejection fraction, unspecified HF chronicity ([facility]) Pain of left upper extremity Numbness and tingling in left hand Disturbance of skin sensation Type 2 diabetes 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, with long-term current use of insulin (HCC)- Primary Anemia due to stage 5 chronic kidney disease (HCC) End stage renal disease (HCC) End stage renal disease Chronic heart failure with preserved ejection fraction (HCC) Secondary hyperparathyroidism of renal origin (HCC) Secondary hyperparathyroidism (of renal origin) Arteriovenous fistula, acquired Abdominal pain, unspecified abdominal location Medicare annual wellness visit, subsequent- Primary Acute pain of right knee At low risk for fall Type 2 diabetes 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, with long-term current use of insulin (HCC) Mixed hyperlipidemia Essential hypertension Unspecified essential hypertension Thyroid nodule Nontoxic uninodular goiter Type 2 diabetes 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, with long-term current use of insulin (HCC)- Primary Secondary hyperparathyroidism of renal origin (HCC) Secondary hyperparathyroidism (of renal origin) Chronic heart failure with preserved ejection fraction (HCC) Anemia due to stage 5 chronic kidney disease (HCC) End stage renal disease (HCC) End stage renal disease Change in bowel movement [facility]* Diagnosis Pre-transplant evaluation for ESRD (end stage renal disease)- Primary Other specified pre-operative examination Pre-operative cardiovascular examination Pre-transplant evaluation for kidney transplant Other specified pre-operative examination Encounter for other preprocedural examination [facility] Diagnosis H/O partial nephrectomy- Primary Renal mass Unspecified disorder of kidney and ureter Essential hypertension- Primary Unspecified essential hypertension Type 2 diabetes 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, with long-term current use of insulin (HCC) Mixed hyperlipidemia Edema of both lower extremities Stage 4 chronic kidney disease (HCC)- Primary Chronic gout of foot, unspecified cause, 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, with long-term current use of insulin (HCC) Essential hypertension- Primary Unspecified essential hypertension Stage 4 chronic kidney disease (HCC) Type 2 diabetes 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, with long-term current use of insulin (HCC)- Primary Essential hypertension Unspecified essential hypertension Chronic gout of foot, unspecified cause, unspecified laterality Mixed hyperlipidemia Chest pain, unspecified type- Primary Renal cell carcinoma of right kidney (HCC) Chronic gout of foot, unspecified cause, unspecified laterality- Primary Pain of left upper extremity Stage 4 chronic kidney disease (HCC) End stage renal disease (HCC) End stage renal disease Preop examination Unspecified pre-operative examination Type 2 diabetes mellitus without retinopathy (HCC) Essential hypertension Unspecified essential hypertension Anemia due to stage 5 chronic kidney disease, not on chronic dialysis (HCC) Mixed hyperlipidemia Pain of left upper extremity- Primary Left arm swelling Secondary hyperparathyroidism of renal origin (HCC) Secondary hyperparathyroidism (of renal origin) Anemia due to stage 5 chronic kidney disease (HCC) ESRD (end stage renal disease) (HCC) End stage renal disease End stage renal disease (HCC) End stage renal disease Essential hypertension Unspecified essential hypertension Type 2 diabetes 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, with long-term current use of insulin (HCC) Anemia due to stage 5 chronic kidney disease (HCC) Mixed hyperlipidemia Preop examination Unspecified pre-operative examination End stage renal disease (HCC)- Primary End stage renal disease S/P arteriovenous (AV) fistula creation End stage renal disease (HCC) End stage renal disease Essential hypertension Unspecified essential hypertension Type 2 diabetes 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, with long-term current use of insulin (HCC) Essential hypertension- Primary Unspecified essential hypertension Secondary hyperparathyroidism of renal origin (HCC) Secondary hyperparathyroidism (of renal origin) Anemia due to stage 5 chronic kidney disease (HCC) Type 2 diabetes 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, with long-term current use of insulin (HCC) Heart failure with preserved ejection fraction, unspecified HF chronicity (HCC) Pain of left upper extremity Numbness and tingling in left hand Disturbance of skin sensation Type 2 diabetes 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, with long-term current use of insulin (HCC)- Primary Anemia due to stage 5 chronic kidney disease (HCC) End stage renal disease (HCC) End stage renal disease Chronic heart failure with preserved ejection fraction (HCC) Secondary hyperparathyroidism of renal origin (HCC) Secondary hyperparathyroidism (of renal origin) Arteriovenous fistula, acquired Abdominal pain, unspecified abdominal location Medicare annual wellness visit, subsequent- Primary Acute pain of right knee At low risk for fall Type 2 diabetes 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, with long-term current use of insulin (HCC) Mixed hyperlipidemia Essential hypertension Unspecified essential hypertension Thyroid nodule Nontoxic uninodular goiter Type 2 diabetes 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, with long-term current use of insulin (HCC)- Primary Secondary hyperparathyroidism of renal origin (HCC) Secondary hyperparathyroidism (of renal origin) Chronic heart failure with preserved ejection fraction (HCC) Anemia due to stage 5 chronic kidney disease (HCC) End stage renal disease (HCC) End stage renal disease Change in bowel movement Mixed hyperlipidemia [facility] Type 2 diabetes mellitus with chronic kidney disease on chronic dialysis, with long-term current use of insulin [facility] note[facility] assessment information availableWThe [facility] Work Phone: Evaluation note* Diagnosis H/O partial nephrectomy- Primary Renal mass Unspecified disorder of kidney and ureter Essential hypertension- Primary Unspecified essential hypertension Type 2 diabetes 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, with long-term current use of insulin (HCC) Mixed hyperlipidemia Edema of both lower extremities Stage 4 chronic kidney disease (HCC)- Primary Chronic gout of foot, unspecified cause, 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, with long-term current use of insulin (HCC) Essential hypertension- Primary Unspecified essential hypertension Stage 4 chronic kidney disease (HCC) Type 2 diabetes 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, with long-term current use of insulin (HCC)- Primary Essential hypertension Unspecified essential hypertension Chronic gout of foot, unspecified cause, unspecified laterality Mixed hyperlipidemia Chest pain, unspecified type- Primary Renal cell carcinoma of right kidney (HCC) Chronic gout of foot, unspecified cause, unspecified laterality- Primary Pain of left upper extremity Stage 4 chronic kidney disease (HCC) End stage renal disease (HCC) End stage renal disease Preop examination Unspecified pre-operative examination Type 2 diabetes mellitus without retinopathy (HCC) Essential hypertension Unspecified essential hypertension Anemia due to stage 5 chronic kidney disease, not on chronic dialysis (HCC) Mixed hyperlipidemia Pain of left upper extremity- Primary Left arm swelling Secondary hyperparathyroidism of renal origin (HCC) Secondary hyperparathyroidism (of renal origin) Anemia due to stage 5 chronic kidney disease (HCC) ESRD (end stage renal disease) (HCC) End stage renal disease End stage renal disease (HCC) End stage renal disease Essential hypertension Unspecified essential hypertension Type 2 diabetes 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, with long-term current use of insulin (HCC) Anemia due to stage 5 chronic kidney disease (HCC) Mixed hyperlipidemia Preop examination Unspecified pre-operative examination End stage renal disease (HCC)- Primary End stage renal disease S/P arteriovenous (AV) fistula creation End stage renal disease (HCC) End stage renal disease Essential hypertension Unspecified essential hypertension Type 2 diabetes 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, with long-term current use of insulin (HCC) Essential hypertension- Primary Unspecified essential hypertension Secondary hyperparathyroidism of renal origin (HCC) Secondary hyperparathyroidism (of renal origin) Anemia due to stage 5 chronic kidney disease (HCC) Type 2 diabetes 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, with long-term current use of insulin (HCC) Heart failure with preserved ejection fraction, unspecified HF chronicity (HCC) Pain of left upper extremity Numbness and tingling in left hand Disturbance of skin sensation Numbness and tingling in left hand [R20.0, R20.2 (ICD-10-CM)]- Primary Disturbance of skin sensation Type 2 diabetes 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, with long-term current use of insulin (HCC)- Primary Anemia due to stage 5 chronic kidney disease (HCC) End stage renal disease (HCC) End stage renal disease Chronic heart failure with preserved ejection fraction (HCC) Secondary hyperparathyroidism of renal origin (HCC) Secondary hyperparathyroidism (of renal origin) Arteriovenous fistula, acquired Abdominal pain, unspecified abdominal location Medicare annual wellness visit, subsequent- Primary Acute pain of right knee At low risk for fall Type 2 diabetes 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, with long-term current use of insulin (HCC) Mixed hyperlipidemia Essential hypertension Unspecified essential hypertension Thyroid nodule Nontoxic uninodular goiter Type 2 diabetes 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, with long-term current use of insulin (HCC)- Primary Secondary hyperparathyroidism of renal origin (HCC) Secondary hyperparathyroidism (of renal origin) Chronic heart failure with preserved ejection fraction (HCC) Anemia due to stage 5 chronic kidney disease (HCC) End stage renal disease (HCC) End stage renal disease Change in bowel movement documented [facility] encounter [facility]* Attachments The following attachments cannot be sent through Care Everywhere. * Gout ([place]ad[place]) [facility]* Attachments The following attachments cannot be sent through Care Everywhere. * Knee Arthritis: Exercises ([place]vadorean) documented in this encounterIdioHealthInstructions* Attachments The following attachments cannot be sent through Care Everywhere. * URI (Upper Respiratory Infection) ([place]vadorean) documented in this encounterOhioHealthReason for referral (narrative)No reason for referral information availableWThe [facility] Work Phone: Reason for visit Narrative* Transplant (Routine) - Authorized Specialty Diagnoses / Procedures Referred By Contac t Referred To Contact TRANSPLANT Diagnoses Pre-transplant evaluation for ESRD (end stage renal disease) Procedures CONSULT TO TRANSPLANT CENTER OFFICE/OUTPATIENT NEW HIGH MDM 60 MINUTES CHEST X-RAY, FRONT&LAT ECG ROUTINE ECG W/LEAST 12 LDS [facility] ONLY W/O I&R CT ANGIOGRAPHY CHEST W/CONTRAST/NONCONTRAST CT ABDOMEN W & W/O CONTRAST Merlin Gonzales MD [address] [place] [address] Phone: tel: fax: [facility] [address] [address] Phone: tel: Referral ID Status Reason Start Date Expiration Date Visits Requested Visits Authorized [id number] Authorized Financial Clearance Required - OON Payor Patient Cleared - INN Insurance Found 03/18/2024 03/18/[phone] [facility] for visit Narrative* MRI/CT (Routine) - Closed Specialty Diagnoses / Procedures Referred By Belem farnsworth Referred To Contact CT IMAGING Diagnoses Chronic renal failure, unspecified CKD stage Procedures CT ABD/PEL WO IVCON CT ABD & PELVIS W/O CONTRAST Tyra Esposito, MAN.[employer] [address] [place] [id number] Phone: tel: fax: [facility] [place] [address] Referral ID Status Reason Start Date Expiration Date V isits Requested Visits Authorized [id number] Closed Auto-Generate d Referral 03/30/2024 04/29/2025 1 1 [facility] for visit Narrative* Occupational Therapy (Routine) - Closed Specialty Diagnoses / Procedures Referred By Belem farnsworth Referred To Contact Rehabilitation Diagnoses S/P arteriovenous (AV) fistula creation Numbness and tingling in left hand Yan Campbell MD [address] [place] [address] Phone: tel: fax: [facility] [address] [place] [address] Phone: tel: fax: Referral ID Status Reason Start Date Expiration Date Visits Re quested Visits Authorized [id number] Closed 08/17/2022 08/17/2023 199 [facility] History of Present Illness * Nasim Gaspar MD - 04/09/2018 4:45 PM EST Formatting of this note may be different from the original. CHIEF COMPLAINT Chief Complaint Patient presents with Post-op 2 week follow-up / patholgy review History of a renal mass. HPI Ms. Carcamo returns to the clinic now 3 weeks after robotic partial nephrectomy. she was discharged per routine on postoperative day 1 without complications and is doing well. Pathology was reviewed today and indicated a 2.2cm T1a RCC with negative margins ASSESSMENT History of a renal mass. PLAN 1. she will followup in 6 months with her first set of surveillance images and if favorable will bereleased back to Her local urologist for long-term surveillance. The following portions of the patient's history were reviewed and updated as appropriate: allergies, current medications, past family history, past medical history, past social history, past surgicalhistory and problem list. * Tenzin Ramires MA - 04/09/2018 9:40 AM EST Clinical Robotic Urology Nurse Patient Intake Assessment Date: 04/09/2018 Name: Leslie Carcamo : 1950 Do you have the following symptoms or diseases: (* Please answer: Yes or No*) General: Fatigue: No Fever: No Weight Loss: No Weight Gain: No Eyes: Blurred Vision: No Double Vision: No Glasses: No Cataracts: No ENT: Hearing Loss: No Nose Bleeds: No Ringing In the Ears: No Trouble Swallowing: No Cardiovascular: Chest Pain at Rest: No Chest Pain with Exertion: No Palpitations: No Edema: No Irregular Heartbeat: No Respiratory: Chronic Cough: No Shortness of Breath: No Shortness of Breath w/Exertion: No Asthma: No Trouble Breathing When Lying Down: No Gastrointestinal: Nausea or Vomiting: No Heartburn: No Diarrhea: No Blood In Stool: No Urinary: Difficulty Urinating: No Painful Urination: No Increased Frequency: No Urinary Incontinence: No Blood in Urine: No Genital/Reproductive: Sexual Problems: No Decreased Sexual Drive: No Currently (Female): No Abnormal Menstrual Periods (Female): No Musculoskeletal: Leg Cramps: No Leg Cramps with Walking: No Skin: Rash: No Concerning Skin Lesions: No Neurological: Headaches: No Tremors: No Memory Loss: No Fainting: No Mental Status: Anxiety: No Depression: No Bi Polar Disorder: No Schizophrenia: No Endocrine: Weight Gain: No Weight Loss: No Thyroid Problems: No Post Menopausal (Female): No Hot Flashes: No Hematologic: Abnormal Bruising: No Abnormal Bleeding: No Anemia: No Trouble with Blood Clotting: No Previous Transfusions: No Immune Deficiency: No Sickle Cell Disease or Trait: No Lupus: No Hepatitis C: No HIV: No Intake Completed By: Tenzin Ramires MA in this encounter* Edilia Tenorio - 01/14/2020 2:30 PM EDT Pierre Pro placed on the back of patient's left arm with no complications. Patient was given a logbook with a food diary to document her food intake. I informed the patient that documenting her food intake was crucial for the testing that is being done. She agreed she would and vocalized understanding. Lot# [id number] Exp: 05/12/2020 documented in this encounter* Iris Galeana CNP - 01/14/2020 1:00 PM EDT History of Present Illness Type 2 diabetes: This is her first trip to the office. She was diagnosed with diabetes in 2011. Previously on metformin but states discontinued due to kidney issues (POC creatinine this month was 2.7). Was also on Victoza and Trulicity in the past though states she was taken off of that as it justwas not working. She does report that she tolerated the GLP1 well without side effect. Currently her diabetes is managed with glimepiride 2 mg twice a day and Tresiba 30 units daily. She currently checks her blood sugars via fingerstick fasting and at bedtime. In reviewing a three-day blood sugar log her fasting readings range from 85 155 mg/dL and bedtime readings range from 190-240 mg/dL. She denies any hypoglycemic events. She is up-to-date with ophthalmology as of December 2019. Does not see a valve pipe irrigator and denies any symptoms of peripheral neuropathy. Her last lab work was done at an outside lab and I do not have copies of this to review today. Patient reports that in May her last A1c was approximately 10%. In reviewing the EMR, in 2018 her A1c ranged from 10.5 11.5%. Hypertension: Blood pressure elevated today. She reports she does check blood pressure at home and states typically systolic pressure is in the 130 range. Hyperlipidemia: No recent labs to review. There is some confusion with her medications as her written med list shows amlodipine/atorvastatin as well as atorvastatin. I have no lipid panel to review. Review of Systems Nurse Note: Review of Systems Constitutional: Negative for fatigue, fever and unexpected weight change. Respiratory: Negative for cough and shortness of breath. Cardiovascular: Negative for chest pain and leg swelling. Gastrointestinal: Negative for constipation, diarrhea, nausea and vomiting. Endocrine: Negative for polydipsia and polyuria. Neurological: Negative for weakness and numbness. Psychiatric/Behavioral: Negative for sleep disturbance. Patient states she has never saw a childbirth educator Nursing Assessment: Physical Exam Vitals: Blood pressure 161/76, pulse 53, temperature 98.4 F (36.9 C), temperature source Temporal, height 1.676 m (5' 6), weight 89.8 kg (198 lb). Physical Exam Constitutional: Appearance: Normal appearance. Cardiovascular: Rate and Rhythm: Normal rate and regular rhythm. Pulses: Normal pulses. Heart sounds: Normal heart sounds. Pulmonary: Effort: Pulmonary effort is normal. Breath sounds: Normal breath sounds. Neurological: General: No focal deficit present. Mental Status: She is alert and oriented to person, place, and time. Psychiatric: Mood and Affect: Mood normal. Behavior: Behavior normal. Thought Content: Thought content normal. Judgment: Judgment normal. Neurologic Exam Mental Status Oriented to person, place, and time. Foot exam: Bilateral dorsalis pedis pulses +2 and equal. Monofilament sensation intact bilaterally.Skin warm, dry, intact. Assessment and Plan Type 2 diabetes: We will need to get updated lab work. We will also place a professional CGM today.Follow up in 2 weeks to review labs and CGM download. Depending on download data we will consider restarting GLP1 medication while decreasing glimiperide. Hypertension: Blood pressure above goal today. Recommended to continue checking at home. With this being her first trip to the office is a we will reassess at follow up. Hyperlipidemia: She will check her medications at home to see exactly how much atorvastatin she is taking. I did ask her to bring her pill bottles to her next visit for clarification. We will evaluate lipid panel with blood work. Case discussed with Dr. Hardin and he is in agreement with plan. * Jennifer Duncan - 01/14/2020 1:00 PM EDT Nurse Note: Review of Systems Constitutional: Negative for fatigue, fever and unexpected weight change. Respiratory: Negative for cough and shortness of breath. Cardiovascular: Negative for chest pain and leg swelling. Gastrointestinal: Negative for constipation, diarrhea, nausea and vomiting. Endocrine: Negative for polydipsia and polyuria. Neurological: Negative for weakness and numbness. Psychiatric/Behavioral: Negative for sleep disturbance. Patient states she has never saw a childbirth educator Nursing Assessment: Physical Exam documented in this encounter* Iris Galeana CNP - 01/28/2020 2:00 PM EDT History of Present Illness Type 2 diabetes: This is her second trip to the office. She was diagnosed with diabetes in 2011. Previously on metformin but states discontinued due to CKD. Was also on Victoza and Trulicity in the past though states she was taken off of that as it just was not working. She does report that she tolerated the GLP1 well without side effect. Currently her diabetes is managed with glimepiride 2 mg twice a day and Tresiba 30 units daily. She currently checks her blood sugars via fingerstick fasting and at bedtime. She did not bring a blood sugar logbook today. She did bring a diet log. She denies any hypoglycemic events. She is up-to-date with ophthalmology as of December 2019. Does not see a valve pipe irrigator and denies any symptoms of peripheral neuropathy. Recent A1c = 8.8%. In reviewing the EMR, in 2018 her A1c ranged from 10.5 11.5%. CGM data today reveals fair racemic control with postmeal excursions. She has additional abnormal blood work including an anemia with a hemoglobin of 9.9/hematocrit 29.6, significantly reduced GFR = 22, microalbumin/creatinine =1269. She does follow with nephrology in [place] though is unclear if she has any follow-up appointment with them. Hypertension: Blood pressure remains elevated today. She reports she was stressed coming to the office today and feels this is why her blood pressure is elevated. She is not on JAXON/ARB therapy. Heartrate is 46 bpm today. She denies any syncopal episodes, lightheadedness, dizziness, fatigue. Hyperlipidemia: No recent labs to review. There is some confusion with her medications as her med list shows amlodipine/atorvastatin as well as atorvastatin. She did not bring her medication list forbottles today to review. LDL = 86, triglyceride = 103. Review of Systems Nurse Note: Review of Systems Constitutional: Negative for fatigue, fever and unexpected weight change. Respiratory: Negative for cough and shortness of breath. Cardiovascular: Negative for chest pain and leg swelling. Gastrointestinal: Negative for constipation, diarrhea, nausea and vomiting. Endocrine: Negative for polydipsia and polyuria. Neurological: Negative for weakness and numbness. Psychiatric/Behavioral: Negative for sleep disturbance. Patient states she has never seen the childbirth educator before. Nursing Assessment: Physical Exam Vitals: Blood pressure 158/70, pulse (!) 46, temperature 97.7 F (36.5 C), temperature source Temporal, height 1.676 m (5' 6), weight 90.9 kg (200 lb 6.4 oz). Physical Exam Constitutional: Appearance: Normal appearance. Cardiovascular: Rate and Rhythm: Regular rhythm. Bradycardia present. Pulses: Normal pulses. Heart sounds: Normal heart sounds. Pulmonary: Effort: Pulmonary effort is normal. Breath sounds: Normal breath sounds. Neurological: General: No focal deficit present. Mental Status: She is alert and oriented to person, place, and time. Psychiatric: Mood and Affect: Mood normal. Behavior: Behavior normal. Thought Content: Thought content normal. Judgment: Judgment normal. Neurologic Exam Mental Status Oriented to person, place, and time. Assessment and Plan Type 2 diabetes: Labwork reviewed and A1c 8.8% in light of anemia. She is not having any hypoglycemic episodes though with her current decreased kidney function and being on insulin as well as a sulfonylurea she is at high risk for hypoglycemia. At this point we will start to the city 0.75 mg weekly and we will have her decrease the glimepiride to 1 mg daily with her first meal of the day. She was counseled that if her fasting blood sugar were to drop below 100 mg/dL she is to stop the medication and let us know. She reports good hypoglycemic awareness and was able to verbalize appropriate treatment. We will see her back in 6 weeks with another CGM prior. Hypertension: Blood pressure above goal today. Low heart rate today in office though patient is a sin to manic. We will call her PCP office to make them aware to arrange follow-up. We will also fax them her current labs. I discussed with her about her current renal status and the significant importance of close follow-up with nephrology. She reports she will call to make an appointment. Hyperlipidemia: Lipid panel stable. I have asked her to call us when she gets home to figure out exactly how much atorvastatin she is taking. I did ask her to bring her pill bottles to her next visitfor clarification. Case discussed with Dr. Hardin and he is in agreement with plan. * Jennifer Duncan - 01/28/2020 2:00 PM EDT Nurse Note: Review of Systems Constitutional: Negative for fatigue, fever and unexpected weight change. Respiratory: Negative for cough and shortness of breath. Cardiovascular: Negative for chest pain and leg swelling. Gastrointestinal: Negative for constipation, diarrhea, nausea and vomiting. Endocrine: Negative for polydipsia and polyuria. Neurological: Negative for weakness and numbness. Psychiatric/Behavioral: Negative for sleep disturbance. Patient states she has never seen the childbirth educator before. Nursing Assessment: Physical Exam documented in this encounter* Jennifer Duncan - 02/25/2020 2:00 PM EDT Pierre placed on patient's upper (Left) arm without difficulty. FAQ Sheet reviewed and given to patient. Patient instructed on the care and risks of the sensor. Blood glucose log reviewed and given to patient. Patient instructed to continue to check blood sugar as directed. Patient voiced understanding and will call the clinic with any questions or concerns. Lot # [id number] Expiration date: 07/02/2020 Serial # [id number] documented in this encounter* Iris Galeana CNP - 03/09/2020 1:30 PM EDT History of Present Illness Diabetes Type 2 diabetes: This is a follow-up visit to the office. She was diagnosed with diabetes in 2011. Family medical history of diabetes includes her daughter. Previously on metformin but states discontinued due to CKD. Currently her diabetes is managed with glimepiride 1 mg daily, Trulicity 0.75 mg weekly, and Tresiba 30 units daily. Admits she has been holding Tresiba if blood sugar <150 mg/dL at bedtime. Professional CGM reviewed today as well as blood sugar log and food diary. It appears she is takingthe Tresiba every few days. Overall post prandial hyperglycemia is much improved compared to last CGM though there has been one overnight episode of hypoglycemia as well as near her hypoglycemia between lunch and dinner a couple of days. She is unsure if she had any symptoms during these times. Sheis able to verbalize appropriate treatment of hypoglycemia and also does have nasal glucagon available at home (prescribed to her ). She is up-to-date with ophthalmology as of December 2019. Does not see a valve pipe irrigator and denies any symptoms of peripheral neuropathy. Recent A1c = 8.8%. In reviewing the EMR, in 2018 her A1c ranged from 10.5 11.5% in light of anemia anemia with a hemoglobin of 9.9/hematocrit 29.6, significantly reduced GFR = 22, microalbumin/creatinine =1269. She does follow with nephrology in [place] and reports she did have a follow-up with them since our last visit. She pushes tolerating her medications well though has now hit the donut hole and Trulicity will be too expensive. Hypertension: Blood pressure remains elevated today though has improved from last visit and she reports she is working closely with nephrology for blood pressure control. She is not on JAXON/ARB therapy. Hyperlipidemia: LDL = 86, triglyceride = 103. Currently on atorvastatin 40 mg daily. Social History Tobacco Use Smoking status: Never Smoker Smokeless tobacco: Never Used Substance Use Topics Alcohol use: Not Currently Drug use: Never Review of Systems Nurse Note: Review of Systems Constitutional: Negative for fatigue, fever and unexpected weight change. HENT: Negative for trouble swallowing. Respiratory: Negative for cough and shortness of breath. Cardiovascular: Negative for chest pain and leg swelling. Gastrointestinal: Negative for constipation, diarrhea, nausea and vomiting. Endocrine: Negative for polydipsia and polyuria. Genitourinary: Negative for difficulty urinating. Skin: Negative for rash. Neurological: Negative for weakness and numbness. Psychiatric/Behavioral: Negative for sleep disturbance. Nursing Assessment: Physical Exam Has not seen childbirth educator in the past Vitals: Blood pressure 149/65, pulse 53, temperature 97.9 F (36.6 C), temperature source Temporal, height 1.676 m (5' 5.98), weight 89.4 kg (197 lb 3.2 oz). Physical Exam Constitutional: Appearance: Normal appearance. HENT: Head: Normocephalic. Neck: Musculoskeletal: Neck supple. Vascular: No carotid bruit. Cardiovascular: Rate and Rhythm: Normal rate and regular rhythm. Pulses: Normal pulses. Heart sounds: Normal heart sounds. Pulmonary: Effort: Pulmonary effort is normal. Breath sounds: Normal breath sounds. Lymphadenopathy: Cervical: No cervical adenopathy. Skin: General: Skin is warm and dry. Neurological: General: No focal deficit present. Mental Status: She is alert and oriented to person, place, and time. Psychiatric: Mood and Affect: Mood normal. Behavior: Behavior normal. Thought Content: Thought content normal. Judgment: Judgment normal. Neurologic Exam Mental Status Oriented to person, place, and time. Assessment and Plan Type 2 diabetes: Her CGM data shows improved glycemic control with a next estimated A1c of 6.4%. I am concerned with her hypoglycemic events as well as near her hypoglycemia. At this point we will discontinue her glimepiride and decrease her Tresiba to 10 units daily. Follow-up in 2 months with labs prior including fructosamine due to her anemia and CKD. She was instructed to call if has continued morning blood sugars less than 100 mg/dL for further downward titration of the Tresiba. Hypertension: Blood pressure above goal today. Continue to work with nephrology and PCP. Hyperlipidemia: Lipid panel stable. Continue atorvastatin. * Katie Manuel - 03/09/2020 1:30 PM EDT Nurse Note: Review of Systems Constitutional: Negative for fatigue, fever and unexpected weight change. HENT: Negative for trouble swallowing. Respiratory: Negative for cough and shortness of breath. Cardiovascular: Negative for chest pain and leg swelling. Gastrointestinal: Negative for constipation, diarrhea, nausea and vomiting. Endocrine: Negative for polydipsia and polyuria. Genitourinary: Negative for difficulty urinating. Skin: Negative for rash. Neurological: Negative for weakness and numbness. Psychiatric/Behavioral: Negative for sleep disturbance. Nursing Assessment: Physical Exam Has not seen childbirth educator in the past documented in this encounter* Katie Manuel - 04/25/2020 2:30 PM EST Pierre placed on patient's upper Right arm without difficulty. FAQ Sheet reviewed and given to patient. Patient instructed on the care and risks of the sensor. Blood glucose log reviewed and given to patient. Patient instructed to continue to check blood sugar as directed. Patient voiced understanding and will call the clinic with any questions or concerns. Lot # [id number] Serial # [id number] Expiration date: 08/10/2020 documented in this encounter* Kelby Hamilton MD - 07/21/2020 3:58 PM EST Subjective Patient ID: Leslie Carcamo is a 69 y.o. female. Patient is 69-year-old female with history of hypertension hypercholesterolemia diabetes chronic kidney disease seen for follow-up. Patient has not done blood test for a while. Claims that she is seeing a diabetic doctor [facility]. Denies any polyuria polydipsia polyphagia. Does have history of chronic kidney disease blood pressure not under control. I did discuss in detail the importance of blood sugar control and blood pressure control and management of chronic kidneydisease. Patient does understand she promises to do the blood test soon. Patient does complains of left-sided thoracic chest pain. Clinical examination suggestive of muscular pain. I did discuss about NSAID use and chronic kidney disease advised her to not use any [id number] medication just try Lidoderm patch. Same prescription sent. Discussed about health maintenance including but not limited to vaccination. Patient's is in the longterm with serious medical issues. Seen today for further test other than blood test for now. The following portions of the patient's history were reviewed and updated as appropriate: allergies, current medications, past family history, past medical history, past social history, past surgicalhistory, and problem list. Past Medical History: Diagnosis Date Diabetes mellitus (HCC) Diabetes mellitus, type 2 (HCC) Fibroid Glaucoma Gout History of echocardiogram History of stress test 2016 screening and patient reports was normal Hyperlipidemia Hypertension Renal mass, right 02/06/2018 Past Surgical History: Procedure Laterality Date CARDIAC CATHETERIZATION fatty tumor removed fibroid removed uterine HERNIA REPAIR HYSTERECTOMY NEPHRECTOMY PARTIAL ROBOTIC XI STAGE 2 Right 03/26/2018 Procedure: RIGHT ROBOTIC ASSISTED LAPAROSCOPIC PARTIAL NEPHRECTOMY LEVEL 2; Surgeon: Nasim Gaspar MD; Location: [facility]; Service: Urology Review of Systems Constitutional: Negative for activity change, appetite change, chills, diaphoresis, fatigue, fever and unexpected weight change. HENT: Negative for congestion. Eyes: Negative for visual disturbance. Respiratory: Negative for apnea, cough, choking, chest tightness, shortness of breath, wheezing andstridor. Cardiovascular: Negative for chest pain, palpitations and leg swelling. Gastrointestinal: Negative for abdominal pain, constipation, diarrhea and nausea. Genitourinary: Negative for difficulty urinating. Musculoskeletal: Positive for back pain. Negative for arthralgias. Skin: Negative for rash. Neurological: Negative for weakness. Psychiatric/Behavioral: The patient is not nervous/anxious. Patient's Medications New Prescriptions FUROSEMIDE (LASIX) 40 MG TABLET Take 1 (one) tablet (40 mg total) by mouth 2 (two) times a day . LIDOCAINE (LIDODERM) 5 % PATCH Place 1 (one) patch on the skin daily Remove & Discard patch within 12 hours or as directed by MD . Previous Medications ASPIRIN 81 MG CHEWABLE TABLET Chew and Swallow 81 mg daily . ATORVASTATIN (LIPITOR) 40 MG TABLET Take 1 (one) tablet (40 mg total) by mouth every morning Reasons: high cholesterol. BLOOD SUGAR DIAGNOSTIC (FREESTYLE TEST) STRIPS by Miscellaneous route 3 (three) times a day . MULTIVITAMIN (MULTIVITAMIN) PER TABLET Take 1 tablet by mouth every morning. Modified Medications Modified Medication Previous Medication AMLODIPINE-BENAZEPRIL (LOTREL) 10-40 MG PER CAPSULE amLODIPine-benazepril (LOTREL) 10-40 mg per capsule Take 1 (one) capsule by mouth daily . TAKE 1 CAPSULE BY MOUTH EVERY DAY CARVEDILOL (COREG) 25 MG TABLET carvediloL (COREG) 25 MG tablet Take 1 (one) tablet (25 mg total) by mouth 2 (two) times a day with meals . 1 (ONE) TABLET TWO TIMES DAILY INSULIN DEGLUDEC (TRESIBA FLEXTOUCH U-200) 200 UNIT/ML (3 ML) INPN Tresiba FlexTouch U-200 200 unit/mL (3 mL) InPn Inject 10 (ten) Units under the skin nightly . 30 UNITS SOLUTION PEN-INJECTOR AT BEDTIME Discontinued Medications GLIMEPIRIDE (AMARYL) 2 MG TABLET TAKE 2 TABLETS EVERY MORNING AND 1 TABLET EVERY EVENING MECLIZINE (ANTIVERT) 12.5 MG TABLET Take 1 (one) tablet (12.5 mg total) by mouth 3 (three) times a day as needed for nausea Reasons: sensation of spinning or whirling. TRIAMTERENE-HYDROCHLOROTHIAZIDE (MAXZIDE) 75-50 MG PER TABLET Take 1 (one) tablet by mouth every morning Reasons: high blood pressure. Objective Physical Exam Vitals signs reviewed. Constitutional: Appearance: Normal appearance. She is normal weight. HENT: Head: Normocephalic. Right Ear: External ear normal. Left Ear: External ear normal. Nose: Nose normal. Mouth/Throat: Mouth: Mucous membranes are moist. Pharynx: Oropharynx is clear. Eyes: Extraocular Movements: Extraocular movements intact. Conjunctiva/sclera: Conjunctivae normal. Pupils: Pupils are equal, round, and reactive to light. Neck: Musculoskeletal: Neck supple. Cardiovascular: Rate and Rhythm: Normal rate. Pulses: Normal pulses. Heart sounds: Normal heart sounds. Pulmonary: Effort: Pulmonary effort is normal. Breath sounds: Normal breath sounds. Abdominal: General: Bowel sounds are normal. Musculoskeletal: Normal range of motion. Skin: General: Skin is warm. Neurological: General: No focal deficit present. Mental Status: She is alert. Psychiatric: Mood and Affect: Mood normal. Assessment/Plan: Problem List Items Addressed This Visit Endocrine Type 2 diabetes mellitus without retinopathy (HCC) - Primary Relevant Medications insulin degludec (Tresiba FlexTouch U-200) 200 unit/mL (3 mL) InPn Other Relevant Orders Hemoglobin A1c Cardiovascular and Mediastinum Essential hypertension Relevant Medications furosemide (LASIX) 40 MG tablet amLODIPine-benazepril (LOTREL) 10-40 mg per capsule carvediloL (COREG) 25 MG tablet Genitourinary Stage 4 chronic kidney disease (HCC) Relevant Medications furosemide (LASIX) 40 MG tablet Other Relevant Orders CBC and Differential Comprehensive Metabolic Panel Magnesium Level Other Mixed hyperlipidemia Relevant Orders Lipid Panel Class 1 obesity due to excess calories with serious comorbidity and body mass index (BMI) of 30.0 to 30.9 in adult Other Visit Diagnoses Well adult health check Relevant Orders Hepatitis C Antibody HIV 1/2 Screen (4th Generation) At low risk for fall Acute left-sided thoracic back pain Relevant Medications lidocaine (LIDODERM) 5 % patch Kelby Hamilton MD Depression Screening 03/26/2018 07/21/2020 Little interest or pleasure in doing things 0 0 Feeling down, depressed, or hopeless 0 0 PHQ-2 Total Score 0 0 Trouble falling or staying asleep, or sleeping too much - 0 Feeling tired or having little energy - 0 Poor appetite or overeating - 0 Feeling bad about yourself - or that you are a failure or have let yourself or your family down - 0 Trouble concentrating on things, such as reading the newspaper or watching television - 0 Moving or speaking so slowly that other people could have noticed. Or the opposite - being so fidgety or restless that you have been moving around a lot more than usual - 0 Thoughts that you would be better off , or of hurting yourself in some way - 0 PHQ-9 Total Score - 0 Depression Screening 03/26/2018 07/21/2020 Little interest or pleasure in doing things 0 0 Feeling down, depressed, or hopeless 0 0 PHQ-2 Total Score 0 0 Trouble falling or staying asleep, or sleeping too much - 0 Feeling tired or having little energy - 0 Poor appetite or overeating - 0 Feeling bad about yourself - or that you are a failure or have let yourself or your family down - 0 Trouble concentrating on things, such as reading the newspaper or watching television - 0 Moving or speaking so slowly that other people could have noticed. Or the opposite - being so fidgety or restless that you have been moving around a lot more than usual - 0 Thoughts that you would be better off , or of hurting yourself in some way - 0 PHQ-9 Total Score - 0 documented in this encounter* Nasim Gaspar MD - 01/08/2019 3:28 PM EDT CHIEF COMPLAINT Chief Complaint Patient presents with Follow-up MRI post partial nephectomy History of a renal mass. HPI Ms. Carcamo returns to the clinic now 6 months after robotic partial nephrectomy. She is doing well and is comfortable without complaints. Past medical, social and family history is unchanged. Review of systems reviewed and is negative except as above. EXAMINATION He is afebrile. Vital signs are stable. Gen: A+Ox3, no acute distress. Skin: warm, dry, intact, no rashes. HEENT: EOMI, no icterus. Abdomen: benign without masses and wounds healing Extremities: without clubbing, cyanosis or edema. Psych: normal mood and affect Cr 2.0 MRI: no recurrence ASSESSMENT History of a renal mass. PLAN 1. I indicated that she is doing well enough that we can release her back to her local urologist. We will of course remain available to her if she has any concerns, but she is comfortable doing so. Iindicated to her that we work closely with her urologist's office such that if any problems were toarise we would be in immediate contact and able to coordinate her care with ease. 2. Due to her chronic kidney disease, she will need surveillance with MRI. * Pako Meredith RN - 01/08/2019 3:08 PM EDT Clinical Urology Nurse Patient Intake Assessment Date: 01/08/2019 Name: Leslie Carcamo : 1950 Do you have the following symptoms or diseases: (* Please answer: Yes or No*) General: Fatigue: No Fever: No Weight Loss: No Weight Gain: No Eyes: Blurred Vision: No Double Vision: No Glasses: Yes Cataracts: No ENT: Hearing Loss: No Nose Bleeds: No Ringing In the Ears: No Trouble Swallowing: No Cardiovascular: Chest Pain at Rest: No Chest Pain with Exertion: No Palpitations: No Edema: No Irregular Heartbeat: No Respiratory: Chronic Cough: No Shortness of Breath: No Shortness of Breath w/Exertion: No Asthma: No Trouble Breathing When Lying Down: No Gastrointestinal: Nausea or Vomiting: No Heartburn: No Diarrhea: No Blood In Stool: No Urinary: Difficulty Urinating: No Painful Urination: No Increased Frequency: No Urinary Incontinence: No Blood in Urine: No Genital/Reproductive: Sexual Problems: No Decreased Sexual Drive: No Currently (Female): No Abnormal Menstrual Periods (Female): No Musculoskeletal: Leg Cramps: No Leg Cramps with Walking: No Skin: Rash: No Concerning Skin Lesions: No Neurological: Headaches: No Tremors: No Memory Loss: No Fainting: No Mental Status: Anxiety: No Depression: No Bi Polar Disorder: No Schizophrenia: No Endocrine: Weight Gain: No Weight Loss: No Thyroid Problems: No Post Menopausal (Female): No Hot Flashes: No Hematologic: Abnormal Bruising: No Abnormal Bleeding: No Anemia: No Trouble with Blood Clotting: No Previous Transfusions: No Immune Deficiency: No Sickle Cell Disease or Trait: No Lupus: No Hepatitis C: No HIV: No Intake Completed By: Pako Meredith RN documented in this encounter* Lissett IrisELISSA - 08/08/2020 2:00 PM EDT History of Present Illness Diabetes Type 2 diabetes: This is a follow-up visit to the office. She was diagnosed with diabetes in 2011. Family medical history of diabetes includes her daughter. Previously on metformin but states discontinued due to CKD. Currently taking Trulicity 0.75 mg weekly and Tresiba 10-20 units daily. Admits she has been holding Tresiba if blood sugar <150 mg/dL at bedtime, always basing Tresiba off bedtime sugars. She reports holding the Tresiba 3 times per week. She did not bring log book with her today. Denies any hypoglycemic symptoms. She is able to verbalize appropriate treatment of hypoglycemia and also does have nasal glucagon available at home (previously prescribed to her ). She is up-to-date with ophthalmology as of December 2019. Does not see a valve pipe irrigator and denies any symptoms of peripheral neuropathy. She has not yet rescheduled appointment with childbirth educator as has been ill and last week. Recent A1c = 7.7%, up from 7.4%, down from 8.8%. In reviewing the EMR, in 2018 her A1c ranged from 10.5 11.5%, fructosamine was ordered but not done. She does have chronic anemia with H/H = 10.2/30 2. significantly reduced GFR = 18, urine albumin creatinine ratio previously elevated at 684 mg/g. She does follow with nephrology in [place] and reports she does have follow-up visit with him this week. She was able to get prescription assistance for Trulicity. She has been under significant amount of stress over the past 3 months with her 's declininghealth and recent passing. Hypertension: Blood pressure above target today. Follows closely with nephrology for blood pressurecontrol. She is on JAXON therapy. Hyperlipidemia: LDL = 83, triglyceride = 113. Currently on atorvastatin 40 mg daily. Social History Tobacco Use Smoking status: Never Smoker Smokeless tobacco: Never Used Substance Use Topics Alcohol use: Not Currently Drug use: Never Review of Systems Nurse Note: Review of Systems Constitutional: Negative for fatigue and unexpected weight change. Eyes: Negative for visual disturbance. Respiratory: Negative for cough and shortness of breath. Cardiovascular: Negative for chest pain and leg swelling. Gastrointestinal: Negative for constipation, diarrhea, nausea and vomiting. Endocrine: Negative for polydipsia and polyuria. Skin: Negative for rash. Neurological: Negative for numbness. Psychiatric/Behavioral: Negative for sleep disturbance. Patient has not seen a childbirth educator Nursing Assessment: Physical Exam Vitals: Blood pressure 140/65, pulse 90, height 1.676 m (5' 5.98), weight 84.7 kg (186 lb 11.2 oz). Physical Exam Constitutional: Appearance: Normal appearance. HENT: Head: Normocephalic. Neck: Vascular: No carotid bruit. Cardiovascular: Rate and Rhythm: Normal rate and regular rhythm. Pulses: Normal pulses. Heart sounds: Normal heart sounds. Pulmonary: Effort: Pulmonary effort is normal. Breath sounds: Normal breath sounds. Musculoskeletal: Cervical back: Neck supple. Lymphadenopathy: Cervical: No cervical adenopathy. Skin: General: Skin is warm and dry. Neurological: General: No focal deficit present. Mental Status: She is alert and oriented to person, place, and time. Psychiatric: Mood and Affect: Mood normal. Behavior: Behavior normal. Thought Content: Thought content normal. Judgment: Judgment normal. Foot exam: Bilateral dorsalis pedis pulses +1 and equal. Monofilament sensation intact bilaterally.Skin warm, dry, intact. Hammertoe deformity noted to the left second toe. Neurologic Exam Mental Status Oriented to person, place, and time. Assessment and Plan Type 2 diabetes: A1c has elevated slightly though with her history of hypoglycemia A1c of 7 7.5% would be a realistic goal. With no logbook to review today it is difficult to make recommendation for changing Trulicity dosing. We reviewed checking blood sugar sporadically in the middle night when she is up to urinate to ensure no hypoglycemia. At this point we will follow up in 3 months with labs and professional CGM prior. Hypertension: Blood pressure above goal today. Continue to work with nephrology and we will see them later this week. Hyperlipidemia: Lipid panel stable. Continue atorvastatin. * Lulu Redd - 08/08/2020 2:00 PM EDT Nurse Note: Review of Systems Constitutional: Negative for fatigue and unexpected weight change. Eyes: Negative for visual disturbance. Respiratory: Negative for cough and shortness of breath. Cardiovascular: Negative for chest pain and leg swelling. Gastrointestinal: Negative for constipation, diarrhea, nausea and vomiting. Endocrine: Negative for polydipsia and polyuria. Skin: Negative for rash. Neurological: Negative for numbness. Psychiatric/Behavioral: Negative for sleep disturbance. Patient has not seen a childbirth educator Nursing Assessment: Physical Exam documented in this encounter Assessments Diagnosis History of malignant neoplas m of kidney - Primary Diagnosis Other chest pain Diagnosis Personal history of renal cancer Personal history of malignant neoplasm of kidney Diagnosis Renal cell carcinoma, unspecified laterality (HCC) Diagnosis Type 2 diabetes mellitus with chronic kidney disease, with long-term current use of insulin, unspecified CKD stage- Primary Diagnosis Type 2 diabetes mellitus with chronic kidney disease, with long-term current use of insulin, unspecified CKD stage- Primary Essential hypertension Unspecified essential hypertension Mixed hyperlipidemia Diagnosis Type 2 diabetes 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, with long-term current use of insulin- Primary Essential hypertension Unspecified essential hypertension Mixed hyperlipidemia Diagnosis Type 2 diabetes 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, with long-term current use of insulin- Primary Diagnosis Chest pain, unspecified type Diagnosis Type 2 diabetes mellitus without retinopathy (HCC)- Primary Essential hypertension Unspecified essential hypertension Stage 4 chronic kidney disease (HCC) Mixed hyperlipidemia Class 1 obesity due to excess calories with serious comorbidity and body mass index (BMI) of 30.0 to 30.9 in adult Well adult health check Unspecified general medical examination At low risk for fall Acute left-sided thoracic back pain Diagnosis Essential hypertension- Primary Unspecified essential hypertension Diagnosis Stage 4 chronic kidney disease (HCC) Diagnosis Personal history of renal cancer- Primary Personal history of malignant neoplasm of kidney Diagnosis Type 2 diabetes 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, with long-term current use of insulin- Primary Mixed hyperlipidemia Essential hypertension Unspecified essential hypertension Summary Purpose Family History No Family History Records Found Relationship Condition Age at Onset Recorded Date/T zoila aunt Cerebrovascular accident (CVA) Unknown Relationship Condition Age at Onset Recorded Date/T zoila aunt Cerebrovascular accident (CVA) Unknown sister Asthma Unknown daughter Disorder of thyroid Unknown Cerebrovascular accident (CVA) Unknown daughter Diabetes mellitus Unknown Hypertension Unknown Kidney disorder Unknown High blood cholesterol Unknown Advance Directives No Advanced Directives Records FoundDocuments on File Type Date Recorded Patient Highway Truck Driver Expl anation Advance Directives and Livin g Will 11/17/2018 8:19 AM Latest Code Status on File Code Status Date Activated Date Inactivated Comments Full Code 03/26/2018 5:19 PM Documents on File Type Date Recorded Patient Highway Truck Driver Expl anation Advance Directives and Livin g Will 12/04/2018 1:08 PM Documents on File Type Date Recorded Patient Highway Truck Driver Expl anation Advance Directives and Livin g Will 01/12/2020 2:18 PM Documents on File Type Date Recorded Patient Highway Truck Driver Expl anation Advance Directives and Livin g Will 11/17/2018 8:19 AM Latest Code Status on File Code Status Date Activated Date Inactivated Comments Full Code 03/26/2018 5:19 PM Documents on File Type Date Recorded Patient Highway Truck Driver Expl anation Advance Directives and Livin g Will 01/14/2020 2:18 PM Documents on File Type Date Recorded Patient Highway Truck Driver Expl anation Advance Directives and Livin g Will 01/07/2019 2:18 PM Documents on File Type Date Recorded Patient Highway Truck Driver Expl anation Advance Directives and Livin g Will 09/07/2020 6:16 PM Documents on File Type Date Recorded Patient Highway Truck Driver Expl anation Advance Directives and Livin g Will 09/07/2020 6:16 PM Documents on File Type Date Recorded Patient Highway Truck Driver Expl anation Advance Directives and Livin g Will 04/22/2021 12:05 PM Latest Code Status on File Code Status Date Activated Date Inactivated Comments Full Code 03/26/2018 5:19 PM 04/22/2021 11:44 AM Documents on File Type Date Recorded Patient Highway Truck Driver Expl anation Advance Directives and Livin g Will 05/31/2021 3:57 PM Documents on File Type Date Recorded Patient Highway Truck Driver Expl anation Advance Directives and Livin g Will 05/31/2021 3:57 PM Latest Code Status on File Code Status Date Activated Date Inactivated Comments Full Code 03/26/2018 5:19 PM 04/22/2021 11:44 AM Latest Code Status on File Code Status Date Activated Date Inactivated Comments Full Code 11/12/2021 3:31 AM 11/15/2021 7:43 PM Full Code 03/26/2018 5:19 PM 04/22/2021 11:44 AM Latest Code Status on File Code Status Date Activated Date Inactivated Comments Full Code 11/12/2021 3:31 AM 11/15/2021 7:43 PM Full Code 03/26/2018 5:19 PM 04/22/2021 11:44 AM Latest Code Status on File Date Activated Date Inactivated Comments 11/12/2021 3:31 AM 11/15/2021 7:43 PM Full Code Date Activated Date Inactivated Comments 03/26/2018 5:19 PM 04/22/2021 11:44 AM Latest Code Status on File Code Status Date Activated Date Inactivated Comments Full Code 11/12/2021 3:31 AM 11/15/2021 7:43 PM Code Status History Code Status Date Activated Date Inactivated Comments Full Code 03/26/2018 5:19 PM 04/22/2021 11:44 AM Latest Code Status on File Code Status Date Activated Date Inactivated Comments Full Code 11/12/2021 3:31 AM 11/15/2021 7:43 PM Code Status History Code Status Date Activated Date Inactivated Comments Full Code 03/26/2018 5:19 PM 04/22/2021 11:44 AM Latest Code Status on File Code Status Date Activated Date Inactivated Comments Full Code 06/19/2022 8:01 AM 06/19/2022 12:19 PM Code Status History Code Status Date Activated Date Inactivated Comments Full Code 11/12/2021 3:31 AM 11/15/2021 7:43 PM Full Code 03/26/2018 5:19 PM 04/22/2021 11:44 AM Latest Code Status on File Code Status Date Activated Date Inactivated Comments Full Code 06/19/2022 8:01 AM 06/19/2022 12:19 PM Code Status History Code Status Date Activated Date Inactivated Comments Full Code 11/12/2021 3:31 AM 11/15/2021 7:43 PM Full Code 03/26/2018 5:19 PM 04/22/2021 11:44 AM Latest Code Status on File Code Status Date Activated Date Inactivated Comments Full Code - Unverified 11/08/2022 12:40 PM 11/08/2022 3: 20 PM Code Status History Code Status Date Activated Date Inactivated Comments Full Code 06/19/2022 8:01 AM 06/19/2022 12:19 PM Full Code 11/12/2021 3:31 AM 11/15/2021 7:43 PM Full Code 03/26/2018 5:19 PM 04/22/2021 11:44 AM Latest Code Status on File Code Status Date Activated Date Inactivated Comments Full Code - Unverified 11/08/2022 12:40 PM 11/08/2022 3: 20 PM Code Status History Code Status Date Activated Date Inactivated Comments Full Code 06/19/2022 8:01 AM 06/19/2022 12:19 PM Full Code 11/12/2021 3:31 AM 11/15/2021 7:43 PM Full Code 03/26/2018 5:19 PM 04/22/2021 11:44 AM Advance Directive Response Recorded Date/ Time Advance Directives No January 9:58am Living Will No February 07, 2023 9:58am Power of Almond Blancher No January 9:58am Advance Directive Response Recorded Date/ Time Advance Directives No January 8:58am Living Will No November 14th, 2 023 9:04pm Power of Almond Blancher No March 26, 2023 9:04pm Latest Code Status on File Code Status Date Activated Date Inactivated Comments Full Code 04/01/2023 2:35 PM 04/03/2023 4:17 AM Code Status History Code Status Date Activated Date Inactivated Comments Full Code - Unverified 11/08/2022 12:40 PM 11/08/2022 3: 20 PM Full Code 06/19/2022 8:01 AM 06/19/2022 12:19 PM Full Code 11/12/2021 3:31 AM 11/15/2021 7:43 PM Full Code 03/26/2018 5:19 PM 04/22/2021 11:44 AM Date Activated Date Inactivated Comments 04/01/2023 2:35 PM 04/03/2023 4:17 AM Date Activated Date Inactivated Comments 11/08/2022 12:40 PM 11/08/2022 3:20 PM Date Activated Date Inactivated Comments 06/19/2022 8:01 AM 06/19/2022 12:19 PM Date Activated Date Inactivated Comments 11/12/2021 3:31 AM 11/15/2021 7:43 PM Date Activated Date Inactivated Comments 03/26/2018 5:19 PM 04/22/2021 11:44 AM Date Activated Date Inactivated Comments 04/01/2023 2:35 PM 04/03/2023 4:17 AM Date Activated Date Inactivated Comments 11/08/2022 12:40 PM 11/08/2022 3:20 PM Date Activated Date Inactivated Comments 06/19/2022 8:01 AM 06/19/2022 12:19 PM Date Activated Date Inactivated Comments 11/12/2021 3:31 AM 11/15/2021 7:43 PM Date Activated Date Inactivated Comments 03/26/2018 5:19 PM 04/22/2021 11:44 AM Advance Directive Response Recorded Date/ Time Advance Directives No April 11:52am Reason for Referral Status Reason Specialty Diagnoses / Procedures Referred By Contact Referred To Contact Authorized Radiology Diagnoses Personal history of renal cancer Procedures CT Abdomen Pelvis With And Without IV Contrast Only Nasim Gaspar MD [address] [place] [address] [place] [address] Status Reason Specialty Diagnoses / Procedures Referred By Contact Referred To Contact New Request Endocrinology, Diabetes & Metabolism Diagnoses Type 2 diabetes 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, with long-term current use of insulin Iris Galeana, [employer] [address] [place] [address] Qiana Martinez, SAMUEL Scheduling Instructions . Status Reason Specialty Diagnoses / Procedures Referre d By Contact Referred To Contact Closed Radiology Diagnoses Renal cell carcinoma, unspecified laterality (HCC) Procedures MR Abdomen Without Contrast Suleman Moreno MD [address] [place] [address] Specialty Diagnoses / Procedures Referred By Contac t Referred To Contact Gastroenterology Diagnoses Other iron deficiency anemia Occult blood positive stool Meenakshi Rider, [employer] [address] [place] [address] Chris Stovall MD [address] [place] [address] Referral ID Status Reason Start Date Expiration Date Visits Requested Visits Authorized [id number] Authorized Specialty Services Required/Pat ient's Best Interest 09/11/2021 09/11/2022 1 1 Specialty Diagnoses / Procedures Referred By Contac t Referred To Contact Radiology Diagnoses Chest pain, unspecified type Procedures NM Myocardial Perfusion Multiple SPECT Chriss Wyman MD [address] [address] Referral ID Status Reason Start Date Expiration Date V isits Requested Visits Authorized [id number] Authorized 12/15/2021 12/15/2022 4 4 Specialty Diagnoses / Procedures Referred By Contac t Referred To Contact Diagnoses Pre-transplant evaluation for kidney transplant Procedures EXERCISE-6 MIN. WALK Laine Handy MD [address] [place] [address] Referral ID Status Reason Start Date Expiration Date V isits Requested Visits Authorized [id number] New Request 01/17/2022 02/11/2023 1 1 Specialty Diagnoses / Procedures Referred By Contac t Referred To Contact Diagnoses Pre-transplant evaluation for kidney transplant Procedures ARTERIAL BLOOD GAS, PULMONARY LAB OBTAINED Laine Handy MD [address] [place] [address] Referral ID Status Reason Start Date Expiration Date V isits Requested Visits Authorized [id number] New Request 01/17/2022 02/11/2023 1 1 Specialty Diagnoses / Procedures Referred By Contac t Referred To Contact Diagnoses Pre-transplant evaluation for kidney transplant Procedures PFT STANDARD Laine Handy MD [address] [place] [address] Referral ID Status Reason Start Date Expiration Date V isits Requested Visits Authorized [id number] New Request 01/17/2022 02/11/2023 1 1 Specialty Diagnoses / Procedures Referred By Contac t Referred To Contact Diagnoses Pre-transplant evaluation for kidney transplant Procedures CT ABDOMEN/PELVIS WITHOUT CONTRAST CHG CT SCAN,ABDOMENT AND PELVIS,W/O CONTRAST Laine Handy MD [address] [place] [address] Referral ID Status Reason Start Date Expiration Date V isits Requested Visits Authorized [id number] New Request 01/17/2022 02/11/2023 1 1 Specialty Diagnoses / Procedures Referred By Contac t Referred To Contact Radiology Diagnoses Pain of left upper extremity Arm mass, left Procedures CT Humerus Left With Contrast Danny Rose MD [address] [place] [address] Referral ID Status Reason Start Date Expiration Date V isits Requested Visits Authorized [id number] New Request 05/04/2022 05/04/2023 1 1 Specialty Diagnoses / Procedures Referred By Contac t Referred To Contact Cardiology Diagnoses ESRD (end stage renal disease) (HCC) Procedures Ultrasound hemodialysis access Yan Campbell MD [address] [place] [address] Referral ID Status Reason Start Date Expiration Date V isits Requested Visits Authorized [id number] Authorized 05/16/2022 05/16/2023 1 1 Referral ID Status Reason Start Date Expiration Date V isits Requested Visits Authorized [id number] Authorized 06/21/2022 06/21/2023 1 1 Specialty Diagnoses / Procedures Referred By Contac t Referred To Contact Cardiology Diagnoses ESRD (end stage renal disease) (HCC) Complication of arteriovenous dialysis fistula, initial encounter Arteriovenous fistula stenosis, initial encounter (HCC) Procedures Saphenous vein mapping Yan Campbell MD [address] [place] [address] Referral ID Status Reason Start Date Expiration Date V isits Requested Visits Authorized [id number] Authorized 06/28/2022 06/28/2023 1 1 Specialty Diagnoses / Procedures Referred By Contac t Referred To Contact Rehabilitation Diagnoses S/P arteriovenous (AV) fistula creation Numbness and tingling in left hand Yan Campbell MD [address] [place] [address] Referral ID Status Reason Start Date Expiration Date Visits Requested Visits Authorized [id number] Pending Review Specialty Services Required/Pat ient's Best Interest 08/17/2022 08/17/2023 1 1 Specialty Diagnoses / Procedures Referred By Contac t Referred To Contact Radiology Diagnoses Breast cancer screening by mammogram Procedures Mammography Screening Noel Danny Restrepo MD [facility] [address] [place] [address] Referral ID Status Reason Start Date Expiration Date V isits Requested Visits Authorized [id number] Authorized 09/24/2022 09/24/2023 1 1 Specialty Diagnoses / Procedures Referred By Contac t Referred To Contact Rehabilitation Diagnoses Numbness and tingling in left hand Yan Campbell MD [address] [place] [address] [facility] [address] [place] [address] Referral ID Status Reason Start Date Expiration Date V isits Requested Visits Authorized [id number] Pending Review 11/27/2022 11/27/2023 1 1 Specialty Diagnoses / Procedures Referred By Contac t Referred To Contact Pharmacy Diagnoses Type 2 diabetes mellitus with chronic kidney disease on chronic dialysis, with long-term current use of insulin Ryan Hardin MD [address] [place] [address] Referral ID Status Reason Start Date Expiration Date V isits Requested Visits Authorized [id number] New Request 06/18/2023 07/12/2024 1 1 Specialty Diagnoses / Procedures Referred By Contac t Referred To Contact Rehabilitation Diagnoses Acute pain of right knee Danny Rose MD [address] [place] [address] [facility] [address] [place] [phone] Referral ID Status Reason Start Date Expiration Date V isits Requested Visits Authorized [id number] Pending Review 12/24/2023 12/23/2024 1 1 Specialty Diagnoses / Procedures Referred By Contac t Referred To Contact Orthopedic Surgery Diagnoses Acute pain of right knee Danny Rose MD [address] [place] [address] [facility] [address] [facility] [place] [address] Referral ID Status Reason Start Date Expiration Date V isits Requested Visits Authorized [id number] Authorized 12/24/2023 12/23/2024 1 1 Specialty Diagnoses / Procedures Referred By Contac t Referred To Contact Rehabilitation Diagnoses Arthritis of right knee Chondromalacia of right patella Desiere Jacobo, [employer] [address] [place] [address] [facility] [address] [place] [address] Referral ID Status Reason Start Date Expiration Date Visits Requested Visits Authorized [id number] Pending Review Specialty Services Required/Pat ient's Best Interest 01/07/2024 01/06/2025 1 1 Specialty Diagnoses / Procedures Referred By Contac t Referred To Contact Radiology Diagnoses Thyroid nodule Procedures US Thyroid Only Danny Rose MD [address] [place] [address] Referral ID Status Reason Start Date Expiration Date V isits Requested Visits Authorized [id number] Authorized 01/08/2024 01/07/2025 1 1 Referral ID Status Reason Start Date Expiration Date V isits Requested Visits Authorized [id number] Pending Review 01/28/2025 01/28/2026 1 1 Referral ID Status Reason Start Date Expiration Date Visits Re quested Visits Authorized [id number] Closed 01/08/2024 01/07/2025 1 1 Specialty Diagnoses / Procedures Referred By Contac t Referred To Contact TRANSPLANT Diagnoses Pre-transplant evaluation for ESRD (end stage renal disease) Procedures CONSULT TO TRANSPLANT CENTER OFFICE/OUTPATIENT [facility] MDM 60 MINUTES CHEST X-RAY, FRONT&LAT ECG ROUTINE ECG W/LEAST 12 LDS TRCG ONLY W/O I&R CT ANGIOGRAPHY CHEST W/CONTRAST/NONCONTRAST CT ABDOMEN W & W/O CONTRAST Merlin Gonzales MD [address] [place] [address] [facility] [address] [place] [address] Referral ID Status Reason Start Date Expiration Date Visits Requested Visits Authorized [id number] Pending Review Financial Clearance Required - [employer] 03/17/2024 03/17/2025 99 99 Specialty Diagnoses / Procedures Referred By Contac t Referred To Contact CT IMAGING Diagnoses Chronic renal failure, unspecified CKD stage Procedures CT ABD/PEL WO IVCON CT ABD & PELVIS W/O CONTRAST Tyra Esposito APRN.ELISSA [address] [place] [address] [facility] [place] [address] Referral ID Status Reason Start Date Expiration Date Visits Requested Visits Authorized [id number] Authorized Auto-Generat ed Referral 4 04/29/2025 1 1 Instructions * Patient Instructions* Kelby Hamilton MD - 07/21/2020 3:58 PM PATR[facility] Low Risk Patient Instructions: Your Falls Screening today shows that you are at low risk for falls. To further protect yourself from falls and maintain your independence, we recommend: 1. Read through the brochure, What You Can Do to Prevent Falls (from [facility]). 2. Go through the brochure, Check for Safety: A Home Fall Prevention Checklist for Older Adults (from [facility]), and make changes as recommended. 3. Join a community falls prevention program: ? Stepping On, a 7-week evidence based program that teaches balance exercises and fall prevention strategies ? Norman Chi for older adults, group exercise that teaches Norman Chi forms that reduce fall risk (weightshifting, postural alignment and control, and coordinated movements of the arms, legs, head, and trunk) ? Matter of Balance, an evidence based program designed to reduce the fear of falling and increase activity levels of older adults OR an exercise class for strength and balance. 4. Take your Vitamin D with or without Calcium, as determined by your healthcare provider. 5. Get your vision and hearing checked annually. Falls At Home Each year, thousands of older Americans fall at home. Many of them are seriously injured, and some are disabled. In 2011, nearly 23,000 people over age 65 and 2.4 million were treated in emergency departments because of falls. Falls are often due to hazards that are easy to overlook but easy to fix. This checklist will help you find and fix those hazards in your home. The checklist asks about hazards found in each room of your home. For each hazard, the checklist tells you how to fix the problem. At the end of the checklist, you ll find other tips for preventing falls. FLOORS: Look at the floor in each room. Q: When you walk through a room, do you have to walk around furniture? A. Ask someone to move the furniture so your path is clear Q: Do you have throw rugs on the floor? A. Remove the rugs or use double-sided tape or a non-slip backing so the rugs won t slip. Q: Are there papers, books, towels, shoes, magazines, boxes, blankets, or other objects on the floor? A.jewel cupping machine operator things that are on the floor. Always keep objects off the floor. Q: Do you have to walk over or around wires or cords (like lamp, telephone, or extension cords)? A. Coil or tape cords and wires next to the wall so you can t trip over them. If needed, have an nurses supervisor put in another outlet. STAIRS AND STEPS: Look at the stairs you use both inside and outside your home. Q: Are there papers, shoes, books, or other objects on the stairs? A. jewel cupping machine operator things on the stairs. Always keep objects off stairs. Q: Are some steps broken or uneven? A. Fix loose or uneven steps. Q: Are you missing a light over the stairway? A. Have an nurses supervisor put in an overhead light at the top and bottom of the stairs. Q: Do you have only one light switch for your stairs (only at the top or at the bottom of the stairs)? A. Have an nurses supervisor put in a light switch at the top and bottom of the stairs. You can get lightswitches that glow. Q: Has the stairway light bulb burned out? A. Have a friend or family member change the light bulb. Q: Is the carpet on the steps loose or torn? A. Make sure the carpet is firmly attached to every step, or remove the carpet and attach non-slip rubber treads to the stairs. Q: Are the handrails loose or broken? Is there a handrail on only one side of the stairs? A. Fix loose handrails or put in new ones. Make sure handrails are on both sides of the stairs and are as long as the stairs. KITCHEN: Look at your kitchen and eating area. Q: Are the things you use often on high shelves? A. Move items in your cabinets. Keep things you use often on the lower shelves (about waist level). Q: Is your step stool unsteady? A. If you must use a step stool, get one with a bar to hold on to. Never use a chair as a step stool. BATHROOMS: Look at all your bathrooms. Q: Is the tub or shower floor slippery? A. Put a non-slip rubber mat or self-stick strips on the floor of the tub or shower. Q: Do you need some support when you get in and out of the tub or up from the toilet? A. Have grab bars put in next to and inside the tub and next to the toilet. BEDROOMS: Look at all your bedrooms. Q: Is the light near the bed hard to reach? A. Place a lamp close to the bed where it s easy to reach. Q: Is the path from your bed to the bathroom dark? A. Put in a night-light so you can see where you re walking. Some night-lights go on by themselves after dark. Other Things You Can Do to Prevent Falls Do exercises that improve your balance and make your legs stronger. Exercise also helps you feel better and more confident. Have your doctor or pharmacist look at all the medicines you take, even byng-xfv-bqhfnuu medicines.Some medicines can make you sleepy or dizzy. Have your eyes checked by an eye doctor at least once a year and update your glasses. Get up slowly after you sit or lie down. Wear shoes both inside and outside the house. Avoid going barefoot or wearing slippers. Improve the lighting in your home. Put in brighter light bulbs. Florescent bulbs are bright and cost less to use. It s safest to have uniform lighting in a room. Add lighting to dark areas. Hang lightweight curtains or shades to reduce glare. [place] a contrasting color on the top edge of all steps so you can see the stairs better. For example, use a light color paint on dark wood. To access this brochure online, please visit the CDC website at http://www.cdc.gov/steadi/pdf/check_for_safety_brochure-a.pdf Chair Rise Exercise What it does: Strengthens the muscles in your thighs & buttocks. Goal: To do this exercise without using your hands as you become stronger. How to do it: 1. Sit toward the front of a sturdy chair with your knees bent & feet flat on the floor shoulder-width apart 2. Rest your hands lightly on the seat on either side of you, keeping your back & neck straight& and chest slightly forward. 3. Breathe in slowly. Lean forward & feel your weight on the front of your feet. 4. Breathe out and slowly stand up, using your hands as little as possible. 5. Pause for a full breath in & out. 6. Breathe in as you slowly sit down. Do not let yourself collapse back down into the chair. Rather, control your lowering as much as possible. 7. Breathe out. Repeat 10-15 times. If this number is too hard for you when you first start practicing this exercise, begin with fewer and work up to this number. Rest for a minute & then do a final set of 10-15. For detailed instructions, please visit the CDC website at http://www.cdc.gov/steadi/pdf/chair_rise_exercise-a.pdf Stepping On is an evidence based program proven to reduce falls in older adults. It is a workshop offered once a week for seven weeks. In a small-group setting, you will learn balance exercises and develop specific knowledge and skills to prevent falls. Older adults who should attend are those who: are at risk of falling who have fallen one or more times lives at home are able to walk without the help of another person Local guest experts provide information on exercise, safety, vision, and medications. Classes are offered at [facility]. To find out specifics about a class, please call [phone]. Norman chi: Moving for Better Balance involves low impact exercise. The 12-week class is offered for three hours per week and is led by a trained humanities instructor. It is intended for people aged 60 and older. Participants learn and perform a program of eight forms that progress from easy to more difficult. The program can accommodate persons with various physical conditions. Health Benefits of Norman Chi: Moving for Better Balance: Improved social and mental well-being, Improved balance and physical functioning, Improved confidence in conducting daily activities, Reduced risk of falling and sustaining associated injuries, and Maintained independence and improved quality of life. To find a Norman Chi program in your area or additional resources about fall prevention please contact: [facility] Violence and Injury Prevention Program at [phone] or [email or web address] A Matter of Balance: Managing Concerns about Falls is an evidence based program designed to reduce the fear of falling and increase activity levels of older adults. A trained facility service manager leads 8 two-hour sessions for small groups of older adults. The class is intended for people 60 and older who are at risk of falling have a fear of falling or restrict activities who have fallen in the past are interested in improving flexibility, balance, and strength. Participants will learn to view falls as controllable, set goals to increase activity levels, and reduce fall risks at home. Classes are offered in all [address] [place] [address] in [place]. For more information about specific classes near you, please visit http://aging.[place].gov/steadyu/resources/matterofbalance.aspx. documented in this encounter Chief Complaint and Reason for Visit Chief Complaint POSSIBLE STEAL SYNDR OME IN ACCESS ARM CARPAL TUNNEL SYNDROME CARPAL TUNNEL SYNDROME Reason for Visit Problem with dialysi s access Steal syndrome dialysis vascular access Chief Complaint POSSIBLE STEAL SYNDR OME IN ACCESS ARM CARPAL TUNNEL SYNDROME CARPAL TUNNEL SYNDROME CONSULT-COMPLICATION OF PROSTHETIC DEVICE UPPER LEFT EXTREMITY Reason for Visit Problem with dialysi s access Steal syndrome dialysis vascular access Steal syndrome dialysis vascular access Chief Complaint CARPAL TUNNEL SYNDRO ME CARPAL TUNNEL SYNDROME CONSULT-COMPLICATION OF PROSTHETIC DEVICE UPPER LEFT EXTREMITY Z01.818 Reason for Visit Steal syndrome dialy sis vascular access Chief Complaint CARPAL TUNNEL SYNDRO ME CARPAL TUNNEL SYNDROME CONSULT-COMPLICATION OF PROSTHETIC DEVICE UPPER LEFT EXTREMITY Z01.818 left upper extremity revascularization using dista left upper extremity revascularization using dista left upper extremity revascularization using dista Reason for Visit Steal syndrome dialy sis vascular access Steal syndrome dialysis vascular access Chief Complaint Admit Date RUE AV FISTULA October 27, 2024 10:4 5am Additional Source Comments Reason for Visit (unrecogniz ed section and content) Reason Comments Post-op 2 week follow-up / p atholgy review Status Reason Specialty Diagnoses / Procedures Referre d By Contact Referred To Contact Closed Radiology Diagnoses Other chest pain Procedures NM Myocardial Perfusion Study Single - Stress Only NM Myocardial Perfusion Multiple SPECT Kelby Hamilton MD [address] [place] [id number] Status Reason Specialty Diagnoses / Procedures Referred By Contact Referred To Contact Authorized Radiology Diagnoses Personal history of renal cancer Procedures CT Abdomen Pelvis With And Without IV Contrast Only Nasim Gaspar MD [address] [place] [address] Dr [address] [place] [phone] Status Reason Specialty Diagnoses / Procedures Referred By Contact Referred To Contact New Request Radiology Diagnoses Renal cell carcinoma, unspecified laterality (HCC) Procedures MR Kidney Without Contrast MR Kidney With Contrast MR Abdomen With And Without Contrast Suleman Moreno MD [address] [place] [address] Reason Comments Diabetes Reason Comments New Patient Diabetes Reason Comments Follow-up Diabetes Reason Comments Follow-up Diabetes Pierre Pro DL, Logboo k Reason Onset Date Comments Follow-up 3 mo/ back pain above rt shoulder blade x 1 week Fall Risk Screening 07/21/2020 Reason Comments Follow-up bp check only per dr hamilton Reason Onset Date Comments Medication Refill 07/27/2020 Reason Comments Follow-up MRI post partial nep hectomy Reason Comments Medication Refill Status Reason Specialty Diagnoses / Procedures Referre d By Contact Referred To Contact Closed Radiology Diagnoses Renal cell carcinoma, unspecified laterality (HCC) Procedures MR Abdomen Without Contrast Suleman Moreno MD [address] [place] [address] Reason Comments Other Reason Comments Follow-up 3 month f/u Reason Comments Tinnitus JIMI ears, new patien t Specialty Diagnoses / Procedures Referred By Contact Referred To Contact Otolaryngology (ENT) / Otolaryngology Diagnoses Tinnitus of both ears Kelby Hamilton MD [address] [place] [address] Pete Anderson MD [address] [place] [address] Referral ID Status Reason Start Date Expiration Date V isits Requested Visits Authorized [id number] Closed Specialty Services Required/Gabriella ent's Best Interest 01/27/2021 01/27/2022 1 1 Reason Comments Follow-up 3 mo f/up Reason Comments Establish Care Per Patient Last kelly mogram done in August at [facility] Asthma Reason Comments Hypertension Reason Comments Follow-up Reason Comments anemia New consult dr guera díaz Specialty Diagnoses / Procedures Referred By Contac t Referred To Contact Infusion Therapy Diagnoses Stage 4 chronic kidney disease (HCC) Anemia due to stage 4 chronic kidney disease (HCC) Procedures CT INJ RETACRIT NON-ESRD USE Meenakshi Rider, WE[employer] [address] [place] [address] [facility] [address] [place] [phone] Referral ID Status Reason Start Date Expiration Date V isits Requested Visits Authorized [id number] Authorized 08/14/2021 08/14/2022 99 99 Specialty Diagnoses / Procedures Referred By Contac t Referred To Contact Gastroenterology Diagnoses Other iron deficiency anemia Occult blood positive stool Meenakshi Rider, [employer] [address] [place] [address] Chris Stovall MD [address] [place] [address] Referral ID Status Reason Start Date Expiration Date V isits Requested Visits Authorized [id number] Closed Specialty Services Required/Gabriella ent's Best Interest 09/11/2021 09/11/2022 1 1 Reason Comments Anemia F/U Reason Onset Date Comments Medication Refill 11/21/2021 Reason Comments Follow-up ED 11/11/21 CP -denies CP/ JOHN/ pain in left arm Reason Comments Arm Pain Reason Comments Follow-up Pro Placement Reason Comments Initial Visit (Intake) Specialty Diagnoses / Procedures Referred By Contac t Referred To Contact Cardiology Diagnoses End stage renal disease (HCC) Chris Ford MD [address] [place] [address] [facility] [address] [place] [address] Referral ID Status Reason Start Date Expiration Date Visits Re quested Visits Authorized [id number] Closed 11/30/2021 11/30/2022 1 1 Reason Comments Kidney Recipient Evaluation Specialty Diagnoses / Procedures Referred By Belem t Referred To Contact Transplant / Transplant Surgery Procedures PRE NEW PATIENT Ela Muller MD [address] [place] [address] Laine Handy MD [address] [place] [id number] Referral ID Status Reason Start Date Expiration Date V isits Requested Visits Authorized [id number] New Request 01/17/2022 02/11/2023 1 1 Reason Comments Pre-operative Medical Risk Stratificatio n Reason Onset Date Comments Medication Refill 04/27/2022 Reason Comments Referral - Kidney Txp Reason Comments Follow-up 6mo -numbness L arm since fistula procedure with DR. Mi yesterday Reason Comments Gap Closure (Health Maintenance) Mammogr am due on 08/24/2021Foot Exam due on 03/17/2022 Hypertension Specialty Diagnoses / Procedures Referred By Belem farnsworth Referred To Contact Rehabilitation Diagnoses S/P arteriovenous (AV) fistula creation Numbness and tingling in left hand Yan Campbell MD [address] [place] [address] [facility] [address] [place] [phone] Referral ID Status Reason Start Date Expiration Date V isits Requested Visits Authorized [id number] Authorized 08/17/2022 08/17/2023 12 199 Referral ID Status Reason Start Date Expiration Date V isits Requested Visits Authorized [id number] Pending Review 08/17/2022 08/17/2023 12 199 Specialty Diagnoses / Procedures Referred By Belem t Referred To Contact Rehabilitation Diagnoses S/P arteriovenous (AV) fistula creation Numbness and tingling in left hand Yan Campbell MD [address] [place] [address] [facility] [address] [place] [phone] Specialty Diagnoses / Procedures Referred By Belem t Referred To Contact Rehabilitation Diagnoses Numbness and tingling in left hand Yan Campbell MD [address] [place] [address] [facility] [address] [place] [phone] Referral ID Status Reason Start Date Expiration Date V isits Requested Visits Authorized [id number] Pending Review 11/27/2022 11/27/2023 12 199 Referral ID Status Reason Start Date Expiration Date V isits Requested Visits Authorized [id number] Authorized 11/27/2022 11/27/2023 12 199 Reason Onset Date Comments Annual Exam Gap Closure (Health Maintenance) Mammogram due on 08/24/2021Foot Exam due on 03/17/2022 Tetanus due Fall Risk Screening 01/02/2023 Reason Onset Date Comments Transition Of Care 04/05/2023 2nd attempt- unsuccessful Reason Comments Post-Op Problem Pt had a vein surger y on her left thigh on and is concerned that the site is still weeping. Reason Onset Date Comments Medication Refill 05/16/2023 Reason Comments Diabetes Follow-up Reason Comments Hypertension Gap Closure (Health Maintenance) Mammogr am due on 08/24/2021Urine Microalbumin due on 01/26/2023iabetic Eye Exam due on 04/19/2023 Reason Comments Knee Pain Right knee pain, thi nks it may be arthritis over the last 6 days just keeps getting worse. Reason Comments Knee Pain Right Gap Closure (Health Maintenance) Mammogr am due on 08/24/2021Urine Microalbumin due on 01/26/2023iabetic Eye Exam due on 04/19/2023A1C due on 12/14/2023 Reason Onset Date Comments Medicare Wellness Visit 01/06/2024 [facility] OUTR EACH APPT 01/08/24 Reason Comments Pain Specialty Diagnoses / Procedures Referred By Belem farnsworth Referred To Contact Orthopedic Surgery Diagnoses Acute pain of right knee Danny Rose MD [address] [place] [address] [facility] [address] [place] [address] Referral ID Status Reason Start Date Expiration Date Visits Re quested Visits Authorized [id number] Closed 12/24/2023 12/23/2024 1 1 Reason Onset Date Comments Medicare Wellness Visit Gap Closure (Health Maintenance) Mammogram due on 08/24/2021Urine Microalbumin due on 01/26/2023iabetic Eye Exam due on 04/19/2023A1C due on 12/14/2023iabetic Foot Exam due on 01/03/2024 Fall Risk Screening 01/08/2024 Reason Onset Date Comments Medicare Wellness Visit Gap Closure (Health Maintenance) Mammogram due on 08/24/2021Urine Microalbumin due on 01/26/2023iabetic Eye Exam due on 04/19/2023A1C due on 12/14/2023iabetic Foot Exam due on 01/03/2024 Fall Risk Screening 01/08/2024 Reason Comments Referral - Kidney Txp Reason Comments Cough Reason Comments Diabetes Follow-up Reason Comments Reminder Call Reason Comments Patient Education Specialty Diagnoses / Procedures Referred By Contac t Referred To Contact TRANSPLANT Diagnoses Pre-transplant evaluation for ESRD (end stage renal disease) Procedures CONSULT TO TRANSPLANT CENTER OFFICE/OUTPATIENT [facility] MDM 60 MINUTES CHEST X-RAY, FRONT&LAT ECG ROUTINE ECG W/LEAST 12 LDS TRCG ONLY W/O I&R CT ANGIOGRAPHY CHEST W/CONTRAST/NONCONTRAST CT ABDOMEN W & W/O CONTRAST Merlin Gonzales MD [address] [place] [address] Phone: tel: fax: [facility] [address] [address] Phone: tel: Referral ID Status Reason Start Date Expiration Date Visits Requested Visits Authorized [id number] Authorized Financial Clearance Required - OON Payor Patient Cleared - INN Insurance Found 03/18/2024 03/18/2025 99 99 Reason Comments Radio Main J1 Reason Comments Diabetes Gap Closure (Health Maintenance) Mammogr am due on 2Diabetic Foot Exam due on 01/03/2024 Reason Comments Transplant Evaluation Specialty Diagnoses / Procedures Referred By Belem t Referred To Contact TRANSPLANT Diagnoses Pre-transplant evaluation for ESRD (end stage renal disease) Procedures CONSULT TO [facility]PLANT CENTER OFFICE/OUTPATIENT [facility] MDM 60 MINUTES CHEST X-RAY, FRONT&LAT ECG ROUTINE ECG W/LEAST 12 LDS TRCG ONLY W/O I&R CT ANGIOGRAPHY CHEST W/CONTRAST/NONCONTRAST CT ABDOMEN W & W/O CONTRAST Merlin Gonzales MD [address] [place] [address] Phone: tel: fax: [facility] [address] [place] [address] Phone: tel: Referral ID Status Reason Start Date Expiration Date Visits Requested Visits Authorized [id number] Authorized Financial Clearance Required - OON Payor Patient Cleared - INN Insurance Found 03/18/2024 03/18/2025 99 99 Reason Onset Date Comments Medication Refill 08/07/2024 INFORMATION SOURCE (unrecogn ized section and content) DATE CREATED AUTHOR 05/10/2018 [facility] DATE CREATED AUTHOR AUTHOR'S ORGANIZ ATION 01/10/2019 [facility] DATE CREATED AUTHOR AUTHOR'S ORGANIZ ATION 02/15/2022 [facility] DATE CREATED AUTHOR AUTHOR'S ORGANIZ ATION 05/31/2024 [facility] DATE CREATED AUTHOR AUTHOR'S ORGANIZ ATION 08/03/2024 [facility] DATE CREATED AUTHOR AUTHOR'S ORGANIZ ATION 08/19/2024 [facility] DATE CREATED AUTHOR AUTHOR'S ORGANIZ ATION 09/30/2024 [facility] DATE CREATED AUTHOR AUTHOR'S ORGANIZ ATION 11/28/2024 [facility] DATE CREATED AUTHOR AUTHOR'S ORGANIZ ATION 12/06/2024 [facility] Iris Pascual CNP - 01/28/2020 2:00 PM EDTBIris orellana CNP - 03/09/2020 1:30 PM EDT Procedure Notes (unrecognize d section and content) Associated Order(s): CT CONTINUOUS GLUCOSE MONITORING ANALYSIS I&R CGM data for the past 14 days reviewed with patient. CGM data reveals time in target range 48%, high 43%, very high 9%, low/very low 0%. Trans-reveal overall fairly well maintained basal control though does have post meal excursions at lunch and dinner (patient does not eat breakfast). Food log compared to CGM was reviewed with patient in comparison to her meal excursions. documented in this encounter Associated Order(s): CT CONTINUOUS GLUCOSE MONITORING ANALYSIS I&R CGM data reviewed with patient. Time in target range 83%, high 14%, very high 0%, low 3%, very low 0%. Trends reveal overnight hypoglycemia on one night though improved the remainder of the 4 overnights captured. There is some mild post prandial hyperglycemia though much improved and not nearly as persistent as with last CGM. She is having some near hypoglycemic events between lunch and dinner. Glimepiride was discontinued today and Tresiba dose was decreased to 10 units daily. She is currently in the donut hole unsure should be able to afford [employer] until first of the year. We will set her up with a childbirth educator to work on tight diet control since she will be coming off the [employer]. documented in this encounter Care Teams (unrecognized sec tion and content) Team Status: Active Member Role Status Dates Danny Rose MD Primary Care Provider Active Team Status: Inactive Member Role Status Dates Danny Rose MD Primary Care Provider Active Start: October 27, 2024 End: October 27, 2024 RENZO Cui Attending Provider Active Star t: October 27, 2024 End: October 27, 2024 RENZO Cui Referring Provider Active Star t: October 27, 2024 End: October 27, 2024 Team Status: Active Member Role Status Dates Danny Rose MD Primary Care Provider Active Start: October 27, 2024 Dr. Papito Martinez MD Attending Provider Active S tart: October 27, 2024 Team Status: Active Member Role Status Dates Dr. Chris Ford MD Primary Care Provider Active Team Status: Active Member Role Status Dates Dr. Chris Ford MD Primary Care Provider Active Dr. Petey Lujan MD Referring Provider, Other Prov ider Active Dr. Bernardo Love DO Attending Provider Active Team Status: Inactive Member Role Status Dates Dr. Chris Ford MD Primary Care Provider, Referri ng Provider Active Dr. Papito Martinez MD Attending Provider Active Team Status: Active Member Role Status Dates Dr. Chris Ford MD Primary Care Provider Active Dr. Papito Martinez MD Attending Provider Active Team Status: Inactive Member Role Status Dates Dr. Chris Ford MD Primary Care Provider Active Dr. Petey Lujan MD Attending Provider, Referring Provider Active Team Status: Inactive Member Role Status Dates Dr. Chris Ford MD Primary Care Provider Active Dr. Papito Martinez MD Attending Provider, Referring Pro vider Active [employer] Sales Representative Relationship Specialty Start Date End Date Kelby Hamilton MD PCP - General Internal Medicine 02/10/18 Suleman Moreno MD [address] [place] [address] [phone] Consulting Physician Urologic Surgery 02/10/18 [employer] Sales Representative Relationship Specialty Start Date End Date Kelby Hamilton MD PCP - General Internal Medicine 02/10/18 Suleman Moreno MD [address] [place] [address] Consulting Physician Urologic Surgery 02/10/18 [employer] Sales Representative Relationship Specialty Start Date End Date Kelby Hamilton MD PCP - General Internal Medicine 02/10/18 Suleman Moreno MD [address] [place] [address] Consulting Physician Urologic Surgery 02/10/18 [employer] Sales Representative Relationship Specialty Start Date End Date Kelby Hamilton MD PCP - General Internal Medicine 02/10/18 Suleman Moreno MD [address] [place] [address] Consulting Physician Urologic Surgery 02/10/18 [employer] Sales Representative Relationship Specialty Start Date End Date Kelby Hamilton MD PCP - General Internal Medicine 02/10/18 [place] [address] Consulting Physician Urologic Surgery 02/10/18 [employer] Sales Representative Relationship Specialty Start Date End Date Danny Rose MD [address] [place] [address] PCP - General Family Medicine 05/08/21 Suleman Moreno MD [address] [place] [address] Consulting Physician Urologic Surgery 02/10/18 [employer] Sales Representative Relationship Specialty Start Date End Date Danny Rose MD [address] [place] [address] PCP - General Family Medicine 05/08/21 [place] [address] Consulting Physician Urologic Surgery 02/10/18 [employer] Sales Representative Relationship Specialty Start Date End Date Danny Rose MD [address] [place] [address] PCP - General Family Medicine 05/08/21 Suleman Moreno MD [address] [place] [address] Consulting Physician Urologic Surgery 02/10/18 [employer] Sales Representative Relationship Specialty Start Date End Date Kelby Hamilton MD [address] [place] [phone] PCP - General Internal Medicine 01/14/20 [employer] Sales Representative Relationship Specialty Start Date End Date Kelby Hamilton MD [address] [place] [address] PCP - General Internal Medicine 01/14/20 [employer] Sales Representative Relationship Specialty Start Date End Date Danny Rose MD [address] [place] [address] PCP - General Family Medicine 05/08/21 Suleman Moreno MD [address] [place] [address] Consulting Physician Urologic Surgery 02/10/18 [employer] Sales Representative Relationship Specialty Start Date End Date Danny Rose MD [address] [place] [address] PCP - General Family Medicine 05/08/21 Suleman Moreno MD [address] [place] [address] Consulting Physician Urologic Surgery 02/10/18 [employer] Sales Representative Relationship Specialty Start Date End Date Kelby Hamilton MD [address] [place] [phone] PCP - General Internal Medicine 01/14/20 [employer] Sales Representative Relationship Specialty Start Date End Date Danny Rose MD [address] [place] [address] PCP - General Family Medicine 05/08/21 Suleman Moreno MD [address] [place] [address] Consulting Physician Urologic Surgery 02/10/18 [employer] Sales Representative Relationship Specialty Start Date End Date Danny Rose MD [address] [place] [address] PCP - General Family Medicine 05/08/21 [place] [address] Consulting Physician Urologic Surgery 02/10/18 [employer] Sales Representative Relationship Specialty Start Date End Date Danny Rose MD [address] [place] [address] PCP - General Family Medicine 05/08/21 Suleman Moreno MD [address] [place] [address] Consulting Physician Urologic Surgery 02/10/18 [employer] Sales Representative Relationship Specialty Start Date End Date Danny Rose MD [address] [place] [address] PCP - General Family Medicine 05/08/21 Suleman Moreno MD [address] [place] [address] Consulting Physician Urologic Surgery 02/10/18 [employer] Sales Representative Relationship Specialty Start Date End Date Danny Rose MD [address] [place] [address] PCP - General Family Medicine 05/08/21 Suleman Moreno MD [address] [place] [address] Consulting Physician Urologic Surgery 02/10/18 [employer] Sales Representative Relationship Specialty Start Date End Date Danny Rose MD [address] [place] [address] PCP - General Family Medicine 05/08/21 [place] [address] Consulting Physician Urologic Surgery 02/10/18 [employer] Sales Representative Relationship Specialty Start Date End Date Danny Rose MD [address] [place] [address] PCP - General Family Medicine 05/08/21 Suleman Moreno MD [address] [place] [address] Consulting Physician Urologic Surgery 02/10/18 [employer] Sales Representative Relationship Specialty Start Date End Date Danny Rose MD [address] [place] [address] PCP - General Family Medicine 05/08/21 Suleman Moreno MD [address] [place] [address] Consulting Physician Urologic Surgery 02/10/18 [employer] Sales Representative Relationship Specialty Start Date End Date Danny Rose MD [address] [place] [address] PCP - General Family Medicine 05/08/21 Suleman Moreno MD [address] [place] [address] Consulting Physician Urologic Surgery 02/10/18 [employer] Sales Representative Relationship Specialty Start Date End Date Danny Rose MD [address] [place] [address] PCP - General Family Medicine 05/08/21 Suleman Moreno MD [address] [place] [address] Consulting Physician Urologic Surgery 02/10/18 [employer] Sales Representative Relationship Specialty Start Date End Date Danny Rose MD [address] [place] [address] 48083 PCP - General Family Medicine 05/08/21 Suleman Moreno MD [address] [place] [address] Consulting Physician Urologic Surgery 02/10/18 [employer] Sales Representative Relationship Specialty Start Date End Date Danny Rose MD [address] [place] [address] PCP - General Family Medicine 05/08/21 Suleman Moreno MD [address] [place] [address] Consulting Physician Urologic Surgery 02/10/18 [employer] Sales Representative Relationship Specialty Start Date End Date Danny Rose MD [address] [facility] [address] [place] [address] PCP - General Family Medicine 05/08/21 Suleman Moreno MD [address] [place] [address] Consulting Physician Urologic Surgery 02/10/18 Yan Campbell MD [facility] [place] [address] Surgeon Vascular Surgery 01/12/22 Chris Ford MD [address] [place] [address] Consulting Physician Nephrology 01/24/22 [employer] Sales Representative Relationship Specialty Start Date End Date Danny Rose MD [address] [place] [address] PCP - General Family Medicine 05/08/21 Suleman Moreno MD [address] [place] [address] Consulting Physician Urologic Surgery 02/10/18 Yan Campbell MD [address] [place] [address] Surgeon Vascular Surgery 01/12/22 Chris Ford MD [address] [place] [address] Consulting Physician Nephrology 01/24/22 [employer] Sales Representative Relationship Specialty Start Date End Date Kelby Hamilton MD [address] [place] [address] PCP - General Internal Medicine 01/14/20 [employer] Sales Representative Relationship Specialty Start Date End Date Kelby Hamilton MD [address] [place] [address] PCP - General Internal Medicine 01/14/20 [employer] Sales Representative Relationship Specialty Start Date End Date Danny Rose MD [address] [place] [address] PCP - General Family Medicine 05/08/21 Suleman Moreno MD [address] [place] [address] Consulting Physician Urologic Surgery 02/10/18 Yan Campbell MD [address] [place] [address] Surgeon Vascular Surgery 01/12/22 Chris Ford MD [address] [place] [address] Consulting Physician Nephrology 01/24/22 [employer] Sales Representative Relationship Specialty Start Date End Date Danyn Rose MD [address] [place] [address] 17042 PCP - General Family Medicine 05/08/21 Suleman Moreno MD [address] [place] [address] Consulting Physician Urologic Surgery 02/10/18 Yan Campbell MD [address] [place] [address] Surgeon Vascular Surgery 01/12/22 Chris Ford MD [address] [place] [address] Consulting Physician Nephrology 01/24/22 [employer] Sales Representative Relationship Specialty Start Date End Date Danny Rose MD [address] [place] [address] 38762 PCP - General Family Medicine 05/08/21 Suleman Moreno MD [address] [place] [address] Consulting Physician Urologic Surgery 02/10/18 Yan Campbell MD [address] [place] [address] Surgeon Vascular Surgery 01/12/22 Chris Ford MD [address] [place] [address] Consulting Physician Nephrology 01/24/22 [employer] Sales Representative Relationship Specialty Start Date End Date Kelby Hamilton PCP - General 06/16/09 [employer] Sales Representative Relationship Specialty Start Date End Date Danny Rose MD [address] [place] [address] PCP - General Family Medicine 05/08/21 Suleman Moreno MD [address] [place] [address] Consulting Physician Urologic Surgery 02/10/18 Yan Campbell MD [address] [place] [address] Surgeon Vascular Surgery 01/12/22 Chris Ford MD [address] [place] [address] Consulting Physician Nephrology 01/24/22 [employer] Sales Representative Relationship Specialty Start Date End Date Kelby Hamilton MD [address] [place] [address] PCP - General Internal Medicine 01/14/20 [employer] Sales Representative Relationship Specialty Start Date End Date Danny Rose MD [address] [place] [address] PCP - General Family Medicine 05/08/21 Suleman Moreno MD [address] [place] [address] Consulting Physician Urologic Surgery 02/10/18 Yan Campbell MD [address] [place] [address] Surgeon Vascular Surgery 01/12/22 Chris Ford MD [address] [place] [address] Consulting Physician Nephrology 01/24/22 [employer] Sales Representative Relationship Specialty Start Date End Date Danny Rose MD [address] [place] [address]697 PCP - General Family Medicine 05/08/21 Suleman Moreno MD [address] [place] [address] Consulting Physician Urologic Surgery 02/10/18 Yan Campbell MD [address] [place] [address] Surgeon Vascular Surgery 01/12/22 Chris Ford MD [address] [place] [address] Consulting Physician Nephrology 01/24/22 [employer] Sales Representative Relationship Specialty Start Date End Date Danny Rose MD [address] [place] [address]345 PCP - General Family Medicine 05/08/21 Suleman Moreno MD [address] [place] [address] Consulting Physician Urologic Surgery 02/10/18 Yan Campbell MD [address] [place] [address] Surgeon Vascular Surgery 01/12/22 Chris Ford MD [address] [place] [address] Consulting Physician Nephrology 01/24/22 [employer] Sales Representative Relationship Specialty Start Date End Date Danny Rose MD [address] [place] [address] PCP - General Family Medicine 05/08/21 Suleman Moreno MD [address] [place] [address] Consulting Physician Urologic Surgery 02/10/18 Yan Campbell MD [address] [facility] [place] [address] Surgeon Vascular Surgery 01/12/22 Chris Ford MD [address] [place] [address] Consulting Physician Nephrology 01/24/22 [employer] Sales Representative Relationship Specialty Start Date End Date Danny Rose MD [address] [place] [address] 18711 PCP - General Family Medicine 05/08/21 Suleman Moreno MD [address] [place] [address] Consulting Physician Urologic Surgery 02/10/18 Yan Campbell MD [address] [place] [address] Surgeon Vascular Surgery 01/12/22 Chris Ford MD [address] [place] [address] Consulting Physician Nephrology 01/24/22 [employer] Sales Representative Relationship Specialty Start Date End Date Danny Rose MD [address] [place] [address] 16922 PCP - General Family Medicine 05/08/21 Suleman Moreno MD [address] [place] [address] Consulting Physician Urologic Surgery 02/10/18 Yan Campbell MD [address] [facility] [place] [address] Surgeon Vascular Surgery 01/12/22 Chris Ford MD [address] [place] [address] Consulting Physician Nephrology 01/24/22 [employer] Sales Representative Relationship Specialty Start Date End Date Danny Rose MD [address] [place] [address]67 PCP - General Family Medicine 05/08/21 Suleman Moreno MD [address] [place] [address] Consulting Physician Urologic Surgery 02/10/18 Yan Campbell MD [address] [facility] [place] [address] Surgeon Vascular Surgery 01/12/22 Chris Ford MD [address] [place] [address] Consulting Physician Nephrology 01/24/22 Security Systems Sales Representative Relationship Specialty Start Date End Date Danny Rose MD [address] [place] [address] PCP - General Family Medicine 05/08/21 Suleman Moreno MD [address] [place] [address] Consulting Physician Urologic Surgery 02/10/18 Yan Campbell MD [address] [place] [address] Surgeon Vascular Surgery 01/12/22 Chris Ford MD [address] [place] [address] Consulting Physician Nephrology 01/24/22 [employer] Systems Sales Representative Relationship Specialty Start Date End Date Danny Rose MD [address] [place] [address] PCP - General Family Medicine 05/08/21 Suleman Moreno MD [address] [place] [address] Consulting Physician Urologic Surgery 02/10/18 Yan Campbell MD [address] [place] [address] Surgeon Vascular Surgery 01/12/22 Chris Ford MD [address] [place] [address] Consulting Physician Nephrology 01/24/22 [employer] Systems Sales Representative Relationship Specialty Start Date End Date Danny Rose MD [address] [place] [address] PCP - General Family Medicine 05/08/21 Suleman Moreno MD [address] [place] [address] Consulting Physician Urologic Surgery 02/10/18 Yan Campbell MD [address] [place] [address] Surgeon Vascular Surgery 01/12/22 Chris Ford MD [address] [place] [address] Consulting Physician Nephrology 01/24/22 [employer] Systems Sales Representative Relationship Specialty Start Date End Date Danny Rose MD [address] [place] [address] PCP - General Family Medicine 05/08/21 Suleman Moreno MD [address] [place] [address] Consulting Physician Urologic Surgery 02/10/18 Yan Campbell MD [address] [facility] [place] [address] Surgeon Vascular Surgery 01/12/22 Chris Ford MD [address] [place] [address] Consulting Physician Nephrology 01/24/22 [employer] Systems Sales Representative Relationship Specialty Start Date End Date Danny Rose MD [address] [place] [address] PCP - General Family Medicine 05/08/21 Suleman Moreno MD [address] [place] [address] Consulting Physician Urologic Surgery 02/10/18 Yan Campbell MD [address] [place] [address] Surgeon Vascular Surgery 01/12/22 Chris Ford MD [address] [place] [address] Consulting Physician Nephrology 01/24/22 [employer] Systems Sales Representative Relationship Specialty Start Date End Date Danny Rose MD [address] [place] [address] PCP - General Family Medicine 05/08/21 Suleman Moreno MD [address] [place] [address] Consulting Physician Urologic Surgery 02/10/18 Yan Campbell MD [address] [place] [address] Surgeon Vascular Surgery 01/12/22 Chris Ford MD [address] [place] [address] Consulting Physician Nephrology 01/24/22 [employer] Sales Representative Relationship Specialty Start Date End Date Danny Rose MD [address] [place] [address] PCP - General Family Medicine 05/08/21 Suleman Moreno MD [address] [place] [address] Consulting Physician Urologic Surgery 02/10/18 Yan Campbell MD [address] [facility] [place] [address] Surgeon Vascular Surgery 01/12/22 Chris Ford MD [address] [place] [address] Consulting Physician Nephrology 01/24/22 [employer] Systems Sales Representative Relationship Specialty Start Date End Date Danny Rose MD [address] [place] [address] PCP - General [facility] 05/08/21 Suleman Moreno MD [address] [place] [address] Consulting Physician Urologic Surgery 02/10/18 Yan Campbell MD [address] [place] [address] Surgeon Vascular Surgery 01/12/22 Chris Ford MD [address] [place] [address] Consulting Physician Nephrology 01/24/22 [employer] Systems Sales Representative Relationship Specialty Start Date End Date Danny Rose MD [address] [place] [address] PCP - General Family Medicine 05/08/21 Suleman Moreno MD [address] [place] [address] Consulting Physician Urologic Surgery 02/10/18 Yan Campbell MD [address] [facility] [place] [address] Surgeon Vascular Surgery 01/12/22 Chris Ford MD [address] [place] [address] Consulting Physician Nephrology 01/24/22 [employer] Systems Sales Representative Relationship Specialty Start Date End Date Danny Rose MD [address] [place] [address] PCP - General Family Medicine 05/08/21 Suleman Moreno MD [address] [place] [address] Consulting Physician Urologic Surgery 02/10/18 Yan Campbell MD [address] [place] [address] Surgeon Vascular Surgery 01/12/22 Chris Ford MD [address] [place] [address] Consulting Physician Nephrology 01/24/22 [employer] Systems Sales Representative Relationship Specialty Start Date End Date Danny Rose MD [address] [place] [address] [place] [address] PCP - General Family Medicine 05/08/21 Suleman Moreno MD [address] [place] [address] Consulting Physician Urologic Surgery 02/10/18 Yan Campbell MD [address] [place] [address] Surgeon Vascular Surgery 01/12/22 Chris Ford MD [address] [place] [address] Consulting Physician Nephrology 01/24/22 Team Status: Inactive Member Role Status Dates Dr. Chris Ford MD Primary Care Provider, Referri ng Provider Active Dr. Petey Lujan MD Attending Provider Active [employer] Sales Representative Relationship Specialty Start Date End Date Danny Rose MD [address] [place] [address] PCP - General Family [facility] 05/08/21 Suleman Moreno MD [address] [place] [address] Consulting Physician Urologic Surgery 02/10/18 Yan Campbell MD [address] [place] [address] Surgeon Vascular Surgery 01/12/22 Chris Ford MD [address] [place] [address] Consulting Physician Nephrology 01/24/22 [employer] Sales Representative Relationship Specialty Start Date End Date Danny Rose MD [address] [place] [address] PCP - General Family Medicine 05/08/21 Suleman Moreno MD [address] [place] [address] Consulting Physician Urologic Surgery 02/10/18 Yan Campbell MD [address] [place] [address] Surgeon Vascular Surgery 01/12/22 Chris Ford MD [address] [place] [address] Consulting Physician Nephrology 01/24/22 Team Status: Active Member Role Status Dates Dr. Chris Ford MD Primary Care Provider Active Dr. Papito Martinez MD Attending Provider, Referring Pro vider Active Team Status: Active Member Role Status Dates Dr. Chris Ford MD Primary Care Provider Active Dr. Papito Martinez MD Admit Provider, Att ending Provider, Referring Provider, Other Provider Active Team Status: Active Member Role Status Dates Dr. Chris Ford MD Primary Care Provider Active Dr. Papito Martinez MD Admit Provider, Ref erring Provider, Other Provider Active RENZO Cui Attending Provider Active Team Status: Inactive Member Role Status Dates Dr. Papito Martinez MD Admit Provider, Att ending Provider, Referring Provider Active Danny Rose MD Primary Care Provider Active [employer] Sales Representative Relationship Specialty Start Date End Date Danny Rose MD [address] [place] [address] PCP - General Family Medicine 05/08/21 Suleman Moreno MD [address] [place] [address] Consulting Physician Urologic Surgery 02/10/18 Yan Campbell MD [address] [place] [address] Surgeon Vascular Surgery 01/12/22 Chris Ford MD [address] [place] [address] Consulting Physician Nephrology 01/24/22 Lucero Velasquez, vc++ developerFinancial Systems Manager 04/03/23 04/05/23 [employer] Sales Representative Relationship Specialty Start Date End Date Danny Rose MD [address] [place] [address] PCP - General Family Medicine 04/10/23 [employer] Sales Representative Relationship Specialty Start Date End Date Danny Rose MD [address] [place] [address] PCP - General Family Medicine 05/08/21 Suleman Moreno MD [address] [place] [address] Consulting Physician Urologic Surgery 02/10/18 Yan Campbell MD [address] [place] [address] Surgeon Vascular Surgery 01/12/22 Chris Ford MD [address] [place] [address] Consulting Physician Nephrology 01/24/22 [employer] Systems Sales Representative Relationship Specialty Start Date End Date Danny Rose MD [address] [place] [address] PCP - General Family Medicine 04/10/23 [employer] Sales Representative Relationship Specialty Start Date End Date Danny Rose MD [address] [place] [address] PCP - General Family Medicine 05/08/21 Suleman Moreno MD [address] [place] [address] Consulting Physician Urologic Surgery 02/10/18 Yan Campbell MD [address] [place] [address] Surgeon Vascular Surgery 01/12/22 Chris Ford MD [address] [place] [address] Consulting Physician Nephrology 01/24/22 Spencer Nina II, MD [address] [place] [address] Consulting Physician Ophthalmology 07/10/23 [employer] Sales Representative Relationship Specialty Start Date End Date Danny Rose MD [address] [place] [address] PCP - General Family Medicine 04/10/23 [employer] Sales Representative Relationship Specialty Start Date End Date Danny Rose MD [address] [place] [address] PCP - General Family Medicine 05/08/21 Suleman Moreno MD [address] [place] [address] Consulting Physician Urologic Surgery 02/10/18 Yan Campbell MD [facility] [place] [address] Surgeon Vascular Surgery 01/12/22 Chris Ford MD [address] [place] [address] Consulting Physician Nephrology 01/24/22 Spencer Nina II, MD [address] [place] [address] Consulting Physician Ophthalmology 07/10/23 Security Systems Sales Representative Relationship Specialty Start Date End Date Danny Rose MD [address] [place] [address] PCP - General Family Medicine 05/08/21 Suleman Moreno MD [address] [place] [address] Consulting Physician Urologic Surgery 02/10/18 Yan Campbell MD [address] [place] [address] Surgeon Vascular Surgery 01/12/22 Chris Ford MD [address] [place] [address] Consulting Physician Nephrology 01/24/22 Spencer Nina II, MD [address] [place] [address] Consulting Physician Ophthalmology 07/10/23 [employer] Systems Sales Representative Relationship Specialty Start Date End Date Danny Rose MD [facility] [place] [address] PCP - General Family Medicine 05/08/21 Suleman Moreno MD [address] [place] [address] Consulting Physician Urologic Surgery 02/10/18 Yan Campbell MD [address] [place] [address] Surgeon Vascular Surgery 01/12/22 Chris Ford MD [address] [place] [address] Consulting Physician Nephrology 01/24/22 Spencer Nina II, MD [address] [place] [address] Consulting Physician Ophthalmology 07/10/23 Security Systems Sales Representative Relationship Specialty Start Date End Date Danny Rose MD [address] [place] [address] PCP - General Family Medicine 05/08/21 Suleman Moreno MD [address] [place] [address] Consulting Physician Urologic Surgery 02/10/18 Yan Campbell MD [address] [place] [address] Surgeon Vascular Surgery 01/12/22 Chris Ford MD [address] [place] [address] Consulting Physician Nephrology 01/24/22 Spencer Nina II, MD [address] [place] [address] Consulting Physician Ophthalmology 07/10/23 Ryan Hardin MD [address] [address] Endocrinology/Metabolism 01/08/24 [employer] Systems Sales Representative Relationship Specialty Start Date End Date Danny Rose MD [address] [place] [address] PCP - General Family Medicine 05/08/21 Suleman Moreno MD [address] [place] [address] Consulting Physician Urologic Surgery 02/10/18 Yan Campbell MD [address] [place] [address] Surgeon Vascular Surgery 01/12/22 Chris Ford MD [address] [place] [address] Consulting Physician Nephrology 01/24/22 Spencer Nina II, MD [address] [place] [address] Consulting Physician Ophthalmology 07/10/23 Ryan Hardin MD [address] [place] [address] Endocrinology/Metabolism 01/08/24 Security Systems Sales Representative Relationship Specialty Start Date End Date Kelby Hamilton MD PCP - General 06/16/09 [employer] Sales Representative Relationship Specialty Start Date End Date Kelby Hamilton MD PCP - General 06/16/09 [employer] Sales Representative Relationship Specialty Start Date End Date Kelby Hamilton MD PCP - General 06/16/09 [employer] Sales Representative Relationship Specialty Start Date End Date Kelby Hamilton MD PCP - General 06/16/09 [employer] Sales Representative Relationship Specialty Start Date End Date Danny Rose MD [address] [place] [address] PCP - General Family Medicine 05/08/21 Suleman Moreno MD [address] [place] [address] Consulting Physician Urologic Surgery 02/10/18 Yan Campbell MD [address] [place] [address] Surgeon Vascular Surgery 01/12/22 Chris Ford MD [address] [place] [address] Consulting Physician Nephrology 01/24/22 Spencer Nina II, MD [address] [place] [address] Consulting Physician Ophthalmology 07/10/23 Ryan Hardin MD [address] [address] Endocrinology/Metabolism 01/08/24 Security Systems Sales Representative Relationship Specialty Start Date End Date Danny Rose MD [facility] [place] [address] PCP - General Family Medicine 04/10/23 [employer] Sales Representative Relationship Specialty Start Date End Date Kelby Hamilton MD PCP - General 06/16/09 [employer] Sales Representative Relationship Specialty Start Date End Date Kelby Hamilton MD PCP - General 06/16/09 [employer] Systems Sales Representative Relationship Specialty Start Date End Date Kelby Hamilton MD PCP - General 06/16/09 [employer] Systems Sales Representative Relationship Specialty Start Date End Date Kelby Hamilton MD PCP - General 06/16/09 [employer] Systems Sales Representative Relationship Specialty Start Date End Date Kelby Hamilton MD PCP - General 06/16/09 [employer] Systems Sales Representative Relationship Specialty Start Date End Date Kelby Hamilton MD PCP - General 06/16/09 [employer] Systems Sales Representative Relationship Specialty Start Date End Date Kelby Hamilton MD PCP - General 06/16/09 [employer] Systems Sales Representative Relationship Specialty Start Date End Date Kelby Hamilton MD PCP - General 06/16/09 [employer] Sales Representative Relationship Specialty Start Date End Date Kelby Hamilton MD PCP - General 06/16/09 [employer] Sales Representative Relationship Specialty Start Date End Date Kelby Hamilton MD PCP - General 06/16/09 [employer] Sales Representative Relationship Specialty Start Date End Date Danny Rose MD [facility] [address] [place] [address] PCP - General Family Medicine 05/08/21 Suleman Moreno MD [address] [place] [address] Consulting Physician Urologic Surgery 02/10/18 Yan Campbell MD [facility] [place] [address] Surgeon Vascular Surgery 01/12/22 Chris Ford MD [address] [place] [address] Consulting Physician Nephrology 01/24/22 Spencer Nina II, MD [address] [place] [address] Consulting Physician Ophthalmology 07/10/23 Ryan Hardin MD [address] [address] Endocrinology/Metabolism 01/08/24 [employer] Systems Sales Representative Relationship Specialty Start Date End Date Kelby Hamilton MD PCP - General 06/16/09 [employer] Sales Representative Relationship Specialty Start Date End Date Kelby Hamilton MD PCP - General 06/16/09 [employer] Sales Representative Relationship Specialty Start Date End Date Danny Rose MD [address] [place] [address] PCP - General Family Medicine 05/08/21 Suleman Moreno MD [address] [place] [id number] Consulting Physician Urologic Surgery 02/10/18 Yan Campbell MD [address] [place] [address]803 Surgeon Vascular Surgery 01/12/22 Chris Ford MD [address] [place] [id number] Consulting Physician Nephrology 01/24/22 Spencer Nina II, MD [address] [place] [id number] Consulting Physician Ophthalmology 07/10/23 Ryan Hardin MD [address] [place], [place] [address] Endocrinology/Metabolism 01/08/24 [employer] Sales Representative Relationship Specialty Start Date End Date Danny Rose MD [address] [place] [address] PCP - General Family Medicine 04/10/23 [employer] Systems Sales Representative Relationship Specialty Start Date End Date Danny Rose MD [address] [place] [address] PCP - General Family Medicine 05/08/21 Suleman Moreno MD [address] [place] [address] Consulting Physician Urologic Surgery 02/10/18 Yan Campbell MD [address] [place] [address] Surgeon Vascular Surgery 01/12/22 Chris Ford MD [address] [place] [phone] Consulting Physician Nephrology 01/24/22 Source Comments (unrecognize d section and content) In the event this informatio n is protected by the Federal Confidentiality of Alcohol and Drug Abuse Patient Records regulations: The Federal rules restrict any use of the information to criminally investigate or prosecute any alcohol or drug abuse patient.[facility] CenterIn the event this information is protected by the Federal Confidentiality of Alcohol and Drug Abuse Patient Records regulations: The Federal rules restrict any use of the information to criminally investigate or prosecute any alcohol or drug abuse patient.[facility] CenterIn the event this information is protected by the Federal Confidentiality of Alcohol and Drug Abuse Patient Records regulations: The Federal rules restrict any use of the information to criminally investigate or prosecute any alcohol or drug abuse patient.[facility] CenterIn the event this information is protected by the Federal Confidentiality of Alcohol and Drug Abuse Patient Records regulations: The Federal rules restrict any use of the information to criminally investigate or prosecute any alcohol or drug abuse patient.[facility] CenterIn the event this information is protected by the Federal Confidentiality of Alcohol and Drug Abuse Patient Records regulations: The Federal rules restrict any use of the information to criminally investigate or prosecute any alcohol or drug abuse patient.[facility] CenterIn the event this information is protected by the Federal Confidentiality of Alcohol and Drug Abuse Patient Records regulations: The Federal rules restrict any use of the information to criminally investigate or prosecute any alcohol or drug abuse patient.[facility] CenterIn the event this information is protected by the Federal Confidentiality of Alcohol and Drug Abuse Patient Records regulations: The Federal rules restrict any use of the information to criminally investigate or prosecute any alcohol or drug abuse patient.[facility] CenterIn the event this information is protected by the Federal Confidentiality of Alcohol and Drug Abuse Patient Records regulations: The Federal rules restrict any use of the information to criminally investigate or prosecute any alcohol or drug abuse patient.[facility] the event this information is protected by the Federal Confidentiality of Alcohol and Drug Abuse Patient Records regulations: The Federal rules restrict any use of the information to criminally investigate or prosecute any alcohol or drug abuse patient.[facility] CenterIn the event this information is protected by the Federal Confidentiality of Alcohol and Drug Abuse Patient Records regulations: The Federal rules restrict any use of the information to criminally investigate or prosecute any alcohol or drug abuse patient.[facility] CenterIn the event this information is protected by the Federal Confidentiality of Alcohol and Drug Abuse Patient Records regulations: The Federal rules restrict any use of the information to criminally investigate or prosecute any alcohol or drug abuse patient.[facility] the event this information is protected by the Federal Confidentiality of Alcohol and Drug Abuse Patient Records regulations: The Federal rules restrict any use of the information to criminally investigate or prosecute any alcohol or drug abuse patient.[facility] CenterIn the event this information is protected by the Federal Confidentiality of Alcohol and Drug Abuse Patient Records regulations: The Federal rules restrict any use of the information to criminally investigate or prosecute any alcohol or drug abuse patient.[facility] CenterIn the event this information is protected by the Federal Confidentiality of Alcohol and Drug Abuse Patient Records regulations: The Federal rules restrict any use of the information to criminally investigate or prosecute any alcohol or drug abuse patient.[facility] CenterIn the event this information is protected by the Federal Confidentiality of Alcohol and Drug Abuse Patient Records regulations: The Federal rules restrict any use of the information to criminally investigate or prosecute any alcohol or drug abuse patient.[facility] CenterIn the event this information is protected by the Federal Confidentiality of Alcohol and Drug Abuse Patient Records regulations: The Federal rules restrict any use of the information to criminally investigate or prosecute any alcohol or drug abuse patient.[facility] CenterIn the event this information is protected by the Federal Confidentiality of Alcohol and Drug Abuse Patient Records regulations: The Federal rules restrict any use of the information to criminally investigate or prosecute any alcohol or drug abuse patient.[facility] CenterIn the event this information is protected by the Federal Confidentiality of Alcohol and Drug Abuse Patient Records regulations: The Federal rules restrict any use of the information to criminally investigate or prosecute any alcohol or drug abuse patient.[facility] CenterIn the event this information is protected by the Federal Confidentiality of Alcohol and Drug Abuse Patient Records regulations: The Federal rules restrict any use of the information to criminally investigate or prosecute any alcohol or drug abuse patient.[facility] Goals (unrecognized section and content) Goals may be documented in a n alternate sectionGoals may be documented in an alternate sectionGoals may be documented in an alternate sectionGoals may be documented in an alternate section FOR RECORDS PERTAINING TO PATIENTS WHO ARE OR HAVE BEEN ENROLLED IN A CHEMICAL DEPENDENCY/SUBSTANCEABUSE PROGRAM, SOME INFORMATION MAY BE OMITTED. This clinical summary was aggregated from multiple sources. Caution should be exercised in using it in the provision of clinical care. This summary normalizes information from multiple sources, and as a consequence, information in this document may materially change the coding, format and clinical context of patient data. In addition, data may be omitted in some cases. CLINICAL DECISIONS SHOULD BE BASED ON THE PRIMARY CLINICAL RECORDS. [facility] [employer] [facility]. provides no warranty or guarantee of the accuracy or completeness of information in this document.
[2024-12-09 08:00] LABS: Anion Gap 14 (5-15); BUN 38 mg/dL (4-19); BUN/Creat Ratio 5.8 RATIO (10-20); Calcium,Total 10.2 mg/dL (7.6-11.0); Carbon Dioxide 25.2 mmol/L (21.0-32.0); Chloride 103 mmol/L (98-108); Estimated Creatinine Clearance 8.35 ml/min (50-250); Glucose 140 mg/dL (70-99); Potassium 4.1 mmol/L (3.3-5.1)
--- NOTE | 2024-12-09 09:31 | PCM.HP.STD ---
HPI - General HPI Narrative ALISON HILLIARD, is a 74 F who presents with recent likely small hematoma over prior basilic fistula with PTFE extension and HD unit reports of poor function. The focal swelling has nearly resolved. From what she can tell her dialysis sessions complete without issue. [facility] Medical History Wears glasses Post-menopausal Alcohol use Insulin dependent diabetes mellitus Arthritis Anemia Shortness of breath on exertion Non-smoker History of echocardiogram History of stress test History of renal dialysis Hypertension Gout Diabetes Problem with dialysis access Steal syndrome dialysis vascular access Home Medications ?Medication ?Instructions ?Recorded ?Last Taken ?Type allopurinol 100 mg tablet 150 mg PO DAILY GOUT 10/25/22 02/03/24 History amlodipine 10 mg tablet 10 mg PO QHS BP 10/25/22 04/29/24 History aspirin 81 mg tablet,delayed 81 mg PO DAILY HEART HEALTH 10/25/22 02/03/24 History release atorvastatin 40 mg tablet 40 mg PO SUTH CHOLESTEROL 10/25/22 02/03/24 History carvedilol 25 mg tablet 25 mg PO BID HEART 10/25/22 04/29/24 History dulaglutide 1.5 mg/0.5 mL 1.5 mg subcut WE DIABETES 10/25/22 01/22/24 History subcutaneous pen injector (Trulicity) ergocalciferol (vitamin D2) 1,250 1,250 mcg PO QMONTH SUPPLEMENT 10/25/22 02/03/24 History mcg (50,000 unit) capsule (Vitamin D2) furosemide 80 mg tablet 80 mg PO DAILY WATER PILL 10/25/22 02/03/24 History insulin degludec 200 unit/mL (3 10 unit subcut QHS PRN PRN DIABETES 10/25/22 03/25/23 History mL) subcutaneous pen (Tresiba FlexTouch U-200 insulin) multivit,Ca,mjn-ocey-JD-guarana-caff 1 tab PO DAILY SUPPLEMENT 10/25/22 02/03/24 History 9 mg iron-400 mcg-200 mg tablet ([employer]) clonidine 0.3 mg/24 hr weekly 1 patch topical URBINA 11/11/23 02/02/24 History transdermal patch dorzolamide 22.3 mg-timolol 6.8 1 drp ophthalmic (eye) BID 11/11/23 02/03/24 History mg/mL eye drops hydralazine 100 mg tablet 100 mg PO BID 11/11/23 02/03/24 History sacubitril 97 mg-valsartan 103 mg 1 tab PO BID 11/11/23 04/29/24 History tablet (Entresto) oxycodone 5 mg tablet 5 mg PO Q8H PRN pain 4 days #12 02/04/24 Unknown Rx tabs Allergy/AdvReac Type Severity Reaction Status Date / Time No Known Allergies Allergy Verified 05/26/24 16:05 Family History Aunt CVA (cerebral vascular accident) Sister Asthma Daughter Thyroid disorder CVA (cerebral vascular accident) Daughter Diabetes Hypertension Kidney disease High cholesterol Surgical History Hx of surgical procedure Hx of excision of mass History of partial nephrectomy History of infusaport central venous catheter insertion History of arteriovenostomy for renal dialysis History of hysterectomy Social History Smoking Status: Never smoker alcohol intake: current alcohol intake frequency: a few times a month substance use type: does not use ROS Constitutional Constitutional: Denies chills, fever(s), frequent falls, lethargy or weakness Eyes Eyes: Denies blind spots, change in vision or loss of vision ENT HEENT: Denies bleeding gums, hoarseness or sore throat Cardiovascular Cardiovascular: Denies abdominal pain, bluish discoloration of hand/feet, chest pain with activity, claudication, cold extremities, cyanosis, dyspnea on exertion, erythema on extremities, irregular heart rhythm, leg edema, leg ulcers, numbness in extremities or weakness in extremities Respiratory/Chest Respiratory/Chest: Denies cough, excessive phlegm production, shortness of breath at rest, shortness of breath with exertion or wheezing Gastrointestinal Gastrointestinal: Denies anorexia, change in stool character, constipation, diarrhea, melena or rectal bleeding Genitourinary Genitourinary: Denies dysuria or hematuria Musculoskeletal Musculoskeletal: Denies abnormal gait Integumentary Integumentary: Reports other Details: ; Denies erythema, non-healing lesions or wounds Neurologic Neurologic: Denies abnormal speech, focal weakness, headache(s), loss of vision, numbness, paresthesias or sensory deficit Hematologic/Lymphatic Hematologic/Lymphatic: Denies easy bleeding, easy bruising or lymphadenopathy Vital Signs Vital Signs Vital Signs: Weight Weight: 189 lb Body Mass Index (BMI) 30.4 Physical Exam Const alert, oriented x3, no apparent distress and healthy appearing General Appearance: cooperative; Negative for combative or lethargic Orientation / Consciousness: awake Exam Limitations: no limitations HEENT Head and Scalp: normocephalic and atraumatic Eyes EOMs intact bilaterally General Eye: normal appearance of both eyes Neck full ROM and no lymphadenopathy General: trachea midline Lymph Lymphatic: Negative for no lymphadenopathy noted Resp normal respiratory effort and no use of accessory muscles Effort and Inspection: Negative for labored, stridor or audible wheezes Cardio regular rate and regular rhythm Peripheral Pulses: brachial pulses present and radial pulses present Back/Spine Cervical Spine: cervical ROM normal Extremity full ROM, normal capillary refill and no clubbing, cyanosis or edema Skin no rashes or lesions noted and no wounds Neuro oriented x3, CN's II-XII intact bilaterally, no focal motor deficits and no sensory deficits noted Psych thought process normal, cooperative, affect normal, speech normal and activity/motor behavior normal Results Lab / Micro Data 12/09/24 07:19 12/09/24 07:19 Labs: Laboratory Results - last 24 hr 12/09/24 07:19: WBC 8.2, RBC 3.67 L, Hgb 11.6 L, Hct 36.9 L, MCV 100.5 H, MCH 31.6, MCHC 31.4 L, RDW Std Deviation 58.6 H, RDW Coeff of Geovany 16.3 H, Plt Count 259, MPV 10.4, Sodium 142, Potassium 4.1, Chloride 103, Carbon Dioxide 25.2, Anion Gap 14, BUN 38 H, Creatinine 6.62 H, Estim Creat Clear Calc 8.35 L*, Est GFR (MDRD) Non-Af 6 L, BUN/Creatinine Ratio 5.8 L, Glucose 140 H, Calcium 10.2 Assessment & Plan Assessment/Plan (1) Problem with dialysis access: QUALIFIERS: Encounter type: subsequent encounter Qualified Code(s): T82.898D - Other specified complication of vascular prosthetic devices, implants and grafts, subsequent encounter PLAN: -fistulagram
--- NOTE | 2024-12-09 18:01 | OP.PCM_ITS ---
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, mid fistula, proximal fistula Surgery/Procedure Performed: Fistulogram with angioplasty Intravascular ultrasound superior vena cava, right innominate vein, right axillary subclavian vein, right brachial vein, right basilic vein fistula ship/rec/doc control: No Type of Anesthesia: Local and Sedation,Conscious Procedure Start Time: 10:00 Procedure Stop Time: 11:05 Select all DRAINS/GRAFTS/IMPLANTS that apply: None Estimated Blood Loss: 5 Specimen collected: No Description of surgery: Patient is a 74-year-old female with a prior right basilic fistula with PTFE interposition to obtain greater length for transposition. She has noted a area of a firm nodule over the access site which has been slow to resolve in the dialysis unit has communicated they have difficulty with adequate flow to complete her sessions. He is not note any prolonged bleeding or recurrence of bleeding after her dialysis sessions. She is taken to IR for fistulogram with possible intervention. Description of procedure: Upon obtaining informed consent and verification correct patient procedure site the patient was taken the [facility] where she was positioned prepped and draped in usual sterile fashion. Time was performed consultation administered Versed and fentanyl. Skin overlying the fistula at the antecubital crease was anesthetized 1% lidocaine the vessel accessed under ultrasound guidance with a micropuncture needle wire. This then exchanged for 7 [place] fistula sheath which was advanced without resistance. Through the sheath hand-injection subtraction fistulogram was performed including reflux into the arterial anastomosis and outflow to the central venous system including the atriocaval junction. This revealed multiple tandem locations of stenosis in the mid proximal and distal fistula as well as subclavian vein irregularity there was unclear if there was stenosis or simply due to overlying bone. There was poor reflux into the arterial anastomosis in part given the small caliber of the proximal segment of the fistula though the did not appear to be any significant stenosis, simply small caliber. The patient was then heparinized and allowed to circulate for 3 minutes after which a command 18 wire was advanced through the sheath traversing the area of stenosis into the central venous system. Intravascular ultrasound probe was advanced and recorded pullback performed from the atriocaval junction to the sheath. This revealed that there was no significant stenosis in the subclavian vein at the costoclavicular angle. This also confirmed stenosis greater than 75% in the separate lesions in the mid, proximal, distal fistula. Reference vessel sizes were obtained and a 6 x 40 Linares angio sculpt angioplasty balloon advanced through the sheath and inflated to nominal for multiple inflations at each of the areas of stenosis. The proximal and distal lesions had residual stenosis that did not resolve with the Linares balloon so a second angioplasty balloon, 7 x 20 Bard conquest was advanced via the 7 [place] sheath and inflated to beyond nominal at each of these lesions with resolution of the residual stenosis. Repeat fistulogram revealed satisfactory lesion response with no extravasation or dissection and brisk contrast transit. A 7 x 80 Bard Britney tonics paclitaxel coated angioplasty balloon was advanced covering both the proximal and mid fistula stenoses and then inflated to nominal for 2 minutes and deflated withdrawn. An 8 x 40 Bard Britney tonics paclitaxel coated angioplasty was advanced to the distal lesion and inflated to nominal for 2 minutes and deflated withdrawn. Final completion angiogram revealed satisfactory lesion response with no extravasation or dissection and brisk contrast transit. A nylon pursestring was then placed at the access site and the sheath and wire withdrawn followed by 5 minutes mini pressure. There was a significantly improved thrill in the fistula both at the antecubital crease and in the mid upper arm. It was felt that the more proximal small caliber vessel was not a pathologic stenosis and no further efforts were pursued to treat the dissection from an alternative access point. The patient was then taken the recovery area with plan discharged to home. Surgical Findings: See above Complications Complications: No
== END 2024-12-09 12:15 | disposition home or self-care (01) ==
PROVIDERS: PCP Family Medicine; Referring Provider Surgery Trauma Surgery; Visit Provider Surgery Trauma Surgery
DX: T82.858A Stenosis of other vascular prosthetic devices, implants and grafts, initial encounter (principal); E11.9 Type 2 diabetes mellitus without complications; Z79.4 Long term (current) use of insulin; I10 Essential (primary) hypertension; Y82.8 Other medical devices associated with adverse incidents; M10.9 Gout, unspecified; Z90.5 Acquired absence of kidney; Z79.82 Long term (current) use of aspirin; Z79.85 Long-term (current) use of injectable non-insulin antidiabetic drugs; Z79.899 Other long term (current) drug therapy
CPT/HCPCS: 36415; 36902; 37252; 37253; 76937; 80048; 85027; 99152; 99153; C1725; C1753; C1769; C1894; C2623; Q9967